=== PATIENT | female | born 1975 | race Caucasian/White ===

== ENCOUNTER 2023-03-09 08:22 | Outpatient (OUT) | payer OTHER, SELFPAY ==
--- NOTE | 2023-03-09 08:33 | P.CN_ITS ---
Consult Note: HPI Data of Consult Patient: known to practice within the last 3 years Consult date: 03/09/23 Requesting Physician: DELONTE CLARK NP Primary Care Provider: Kelechi Galvan DO Consult Narrative Narrative: Patient is here for f/u of low back pain. Hx of RFA 11/30 with significant relief continued through today. She states low back pain is starting to come back, but not too bad at this point. No radicular sx. No new sensorimotor sx or bowel or bladder issues. Medication regimen is controlling pain and assisting patient wi th ability to perform ADLs. She has been able to decrease her tizanidine dosage. cc:: CC: DELONTE CLARK NP Review of Systems ROS Status of ROS 10 or more systems reviewed and unremarkable except as noted in history and below Musculoskeletal Reports: back pain Exam Constitutional Common normals: no apparent distress, oriented x3, healthy appearing and alert General appearance: cooperative, comfortable and well developed Nutritional appearance: obese Orientation/consciousness: Yes awake, Yes oriented to person, Yes oriented to place and Yes oriented to time HENMT Common normals: normocephalic and external ears normal Respiratory Common normals: normal respiratory effort, no retractions and no use of accessory muscles Effort & inspection: able to speak in complete sentences and symmetric chest movement Back & Pelvis Thoracic spine/upper back: normal to inspection and thoracic ROM normal Lumbar spine/lower back: normal to inspection, lumbar ROM normal, pain with ROM, paraspinal muscle spasm and straight leg raise negative bilaterally Other: muscle strength 5/5 bilat LE with intact sensation. positive facet loading bilat lumbar Extremity Common normals: normal to inspection, full ROM and normal capillary refill Assessment and Plan Assessment and Plan (1) Lumbar spondylosis: (2) Muscle spasm: Plan f/u in 6 months or sooner if needed
== END 2023-03-09 08:23 | disposition home or self-care (01) ==
PROVIDERS: PCP Internal Medicine; Visit Provider Nurse Practitioner
DX: M47.816 Spondylosis without myelopathy or radiculopathy, lumbar region (principal); M62.838 Other muscle spasm; M54.50 Low back pain, unspecified
CPT/HCPCS: G0463

== ENCOUNTER 2023-05-31 07:40 | Outpatient (OUT) | payer OTHER, SELFPAY ==
--- NOTE | 2023-05-31 08:14 | P.CN_ITS ---
Consult Note: HPI Data of Consult Patient: known to practice within the last 3 years Requesting Physician: Jeny Manley NP Primary Care Provider: Kelechi Galvan DO Consult Narrative Reason for consult: neck pain and back pain Narrative: Jing Gray a pleasant 47 year old female presents with chronic neck and back pain. Patient has felt her neck pain worsening over time, especially in the last week. She went to urgent care and was given a toradol shot and steroid taper without relief. Reviewed imaging from 11/03 of cervical spine which revealed degenerative changes. Patient denies numbness/tingling weakness. cc:: CC: Jeny Manley NP Review of Systems ROS Status of ROS 10 or more systems reviewed and unremarkable except as noted in history and below Musculoskeletal Reports: back pain and neck pain Meds Home Medications and Allergies Home Medications Medication Instructions Recorded Confirmed Type atenolol 50 mg tablet 50 mg PO DAILY 03/09/23 03/09/23 History dapagliflozin propanediol 5 mg 5 mg PO DAILY 03/09/23 03/09/23 History tablet (Farxiga) dulaglutide 4.5 mg/0.5 mL 4.5 mg subcut QWEEK 03/09/23 03/09/23 History subcutaneous pen injector (Trulicity) furosemide 20 mg tablet 20 mg PO DAILY 03/09/23 03/09/23 History lisinopril 5 mg tablet 5 mg PO DAILY 03/09/23 03/09/23 History melatonin 5 mg tablet 5 mg PO DAILY 03/09/23 03/09/23 History metformin 1,000 mg tablet 1,000 mg PO BID 03/09/23 03/09/23 History naproxen 500 mg tablet 500 mg PO BID 03/09/23 03/09/23 History potassium chloride 10 mEq 10 meq PO DAILY 03/09/23 03/09/23 History tablet,extended release (Klor-Con) tizanidine 4 mg tablet (Zanaflex) 4 mg PO DAILY PRN spasm 03/09/23 03/09/23 History baclofen 10 mg tablet 10 mg PO BID #60 tabs 05/31/23 Rx naproxen 500 mg tablet 500 mg PO BID PRN pain #60 tabs 05/31/23 Rx Allergies Allergy/AdvReac Type Severity Reaction Status Date / Time Penicillins Allergy Rash Verified 03/09/23 08:50 Exam Constitutional Documenting provider has reviewed patient's vital signs: yes Common normals: no apparent distress, oriented x3, healthy appearing, alert and well nourished General appearance: cooperative Nutritional appearance: obese HENMT Common normals: normocephalic, hearing grossly normal bilaterally and moist oral mucous membranes Head and scalp: normocephalic Eye Common normals: PERRL Pupil: PERRL Neck & C-Spine General: normal visual inspection Cervical spine: cervical ROM abnormal, pain with cervical ROM, cervical spine tenderness and paracervical muscle tenderness Chest Common normals: inspection of chest normal Respiratory Common normals: normal respiratory effort, no retractions and no use of accessory muscles Back & Pelvis Lumbar spine/lower back: ROM limited and pain with ROM Other: positive facet loading, predominately axial back pain Extremity Common normals: normal to inspection and full ROM Neuro Common normals: oriented x3, CN's II-XII intact bilaterally, moves all ex tremities, no focal motor deficits, no sensory deficits noted, deep tendon reflexes 2+ bilaterally and gait normal Sensorium/orientation: alert Motor exam: strength 5/5 throughout and no movement abnormalities noted Psych Common normals: mental status grossly normal, thought process normal, cooperative, affect normal, speech normal and activity/motor behavior normal Speech: normal speech Thought process: normal thought process Results Additional Findings Additional findings: The patient has had over 3 months of moderate to severe neck pain with functional impairment and inadequate response to conservative care including NSAIDS (unless there are contraindication such as concurrent blood thinners), multiple oral or topical pain medications, and home exercise program/physical therapy.? The Oswestry Disability Index was completed, and the patient scored a 40%.? The patient noted the following:?? severe pain, pain prevents her from lifting heavy weights, pain prevents her from walking more than 0.5 miles, pain prevents her from standing more than 30 minutes, pain interferes with sleep and social life. We discussed the risks and benefits of the procedure with the patient, and we are NOT planning on using sedation as outlined in the guidelines from Medicare unless there is a documented reason that sedation would be strongly recommended.?? ?The procedure will be completed with fluoroscopic guidance.? Assessment and Plan Assessment and Plan (1) Lumbar spondylosis: (2) Muscle spasm: (3) Cervical spondylosis: (4) Obesity: Assessment and Plan: The patient was counseled that proper dietary changes and consistent participation in a home exercise plan can lead to weight loss. Weight loss can help to improve functionality in patients with chronic pain.? Plan start meloxicam 500mg BID for one week, then BID PRN stop tizanidine, start baclofen 5-10mg PO BID PRN muscle spasms bialteral C6-7 C7-8 MBB x2 under fluoroscopy working towards a thermal RFA repeat bilateral T12-L1 L2-3 RFA in the future, last had 11/2021 and feels it is wearing off f/u 1 week after MBB at bilateral c6-7 c7-8
== END 2023-05-31 07:41 | disposition home or self-care (01) ==
PROVIDERS: PCP Internal Medicine; Visit Provider Nurse Practitioner
DX: M47.816 Spondylosis without myelopathy or radiculopathy, lumbar region (principal); M62.838 Other muscle spasm; M47.812 Spondylosis without myelopathy or radiculopathy, cervical region; E66.9 Obesity, unspecified
CPT/HCPCS: G0463

== ENCOUNTER 2023-06-27 06:38 | Day surgery (SDC) | payer OTHER, SELFPAY ==
[2023-06-27 07:08] VITALS: BP 104/64; PULSE 76; RESP 14; TEMP 36.3; O2SAT 97
[2023-06-27 07:36] LABS: Glucometer 127 mg/dL (74-106)
[2023-06-27 07:47] LABS: HCG Qualitative NEGATIVE (NEGATIVE)
[2023-06-27 08:26] VITALS: BP 131/91; PULSE 72; RESP 18; O2SAT 95
[2023-06-27] MEDS: BUPIVACAINE HCL 0.25% PF 25 MG/10 ML VIAL 8 ML INJ (08:27)
[2023-06-27 08:31] VITALS: BP 133/87; PULSE 66; RESP 18; O2SAT 95
--- NOTE | 2023-06-27 09:17 | W.PM.PROCNOT ---
Date of procedure: 06/27/23 Pre-op diagnosis: cervical spondylosis Post-op diagnosis: same as pre-op Procedure: Bilateral Cervical 5/6, 6/7 medial branch block Under fluoroscopic guidance Solution injected: 2millilitersMarcaine 0.25% Anesthesia :none Immediate complications none Time out process compliant After informed consent obtained from the patient placed in the Prone proposition . area was prepped and draped in a sterile fashion using Cloraprep .25 gauge spinal needle inserted over each of the above mentioned target areas . [place] were directed towards the target under fluoroscopic guidance . after encountering each of the targets , no indication of intravascular intraneuronal or intrathecal needle tip placement. Then 0 .5 to 1 Milliliter was injected at each level. [place] removed postoperatively. patient transferred to recovery in stable condition to be discharged home after meeting criteria Anesthesia: Local Surgeon: Julianna Black Condition: stable
== END 2023-06-27 08:40 | disposition home or self-care (01) ==
PROVIDERS: Anesthesiology; PCP Internal Medicine; Visit Provider Anesthesiology Pain Medicine
DX: M47.812 Spondylosis without myelopathy or radiculopathy, cervical region (principal)
CPT/HCPCS: 36415; 64490; 64491; 82948; 84703

== ENCOUNTER 2023-07-06 08:04 | Outpatient (OUT) | payer OTHER, SELFPAY ==
--- NOTE | 2023-07-06 08:36 | P.CN_ITS ---
Consult Note: HPI Data of Consult Patient: known to practice within the last 3 years Requesting Physician: Jeny Manley NP Primary Care Provider: Kelechi Galvan, DO Consult Narrative Reason for consult: f/u Narrative: Jing Gray a pleasant 47 year old female presents for evaluation and management of chronic neck pain today rating pain 4/10 ache without radiculopathy. Patient recently underwent bilateral cervical 5/6 6/7 MBB#1 with 80% pain relief and functional improvement immediately after and hours following. Patient is tolerating current medication well with mild pain relief and without side effects. Would like to discuss proceeding with bilateral C5/6 6/7 MBB#2 working towards thermal RFA cc:: CC: Jeny Manley NP Review of Systems ROS Status of ROS 10 or more systems reviewed and unremarkable except as noted in history and below Musculoskeletal Reports: neck pain PFSH PFSH Medical History (Updated 06/16/23 @ 09:33 by Veronica Mack RN) Diabetes ?E11.9 - Type 2 diabetes mellitus without complications (ICD-10) HTN (hypertension) ?I10 - Essential (primary) hypertension (ICD-10) In vitro fertilization ?Z31.83 - Encounter for assisted reproductive fertility procedure cycle (ICD- 10) Surgical History History of dilation and curettage ?Z98.890 - Other specified postprocedural states (ICD-10) History of fasciotomy ?Z98.890 - Other specified postprocedural states (ICD-10) History of hysteroscopy ?Z98.890 - Other specified postprocedural states (ICD-10) History of laparoscopy ?Z98.890 - Other specified postprocedural states (ICD-10) History of tubal ligation ?Z98.51 - Tubal ligation status (ICD-10) Previous section ?Z98.891 - History of uterine scar from previous surgery (ICD-10) Meds Home Medications and Allergies Home Medications Medication Instructions Recorded Confirmed Type atenolol 50 mg tablet 50 mg PO DAILY 03/09/23 06/27/23 History dapagliflozin propanediol 5 mg 5 mg PO DAILY 03/09/23 06/27/23 History tablet (Farxiga) dulaglutide 4.5 mg/0.5 mL 4.5 mg subcut QWEEK 03/09/23 06/27/23 History subcutaneous pen injector (Trulicity) furosemide 20 mg tablet 20 mg PO DAILY 03/09/23 06/27/23 History lisinopril 5 mg tablet 5 mg PO DAILY 03/09/23 06/27/23 History metformin 1,000 mg tablet 1,000 mg PO BID 03/09/23 06/27/23 History naproxen 500 mg tablet 500 mg PO BID 03/09/23 06/27/23 History potassium chloride 10 mEq 10 meq PO DAILY 03/09/23 06/27/23 History tablet,extended release (Klor-Con) tizanidine 4 mg tablet (Zanaflex) 4 mg PO DAILY PRN spasm 03/09/23 06/27/23 History baclofen 10 mg tablet 10 mg PO BID #60 tabs 05/31/23 06/27/23 Rx naproxen 500 mg tablet 500 mg PO BID PRN pain #60 tabs 05/31/23 06/27/23 Rx Allergies Allergy/AdvReac Type Severity Reaction Status Date / Time Penicillins Allergy Rash Verified 06/27/23 07:02 Exam Constitutional Documenting provider has reviewed patient's vital signs: yes Common normals: no apparent distress, oriented x3, healthy appearing, alert and well nourished General appearance: cooperative Nutritional appearance: obese HENMT Common normals: normocephalic, hearing grossly normal bilaterally and moist oral mucous membranes Head and scalp: normocephalic Eye Common normals: PERRL Pupil: PERRL Neck & C-Spine Common normals: full ROM General: normal visual inspection Cervical spine: cervical ROM abnormal, pain with cervical ROM, cervical spine tenderness and paracervical muscle tenderness Chest Common normals: inspection of chest normal Respiratory Common normals: normal respiratory effort, no retractions and no use of accessory muscles Back & Pelvis Lumbar spine/lower back: ROM limited and pain with ROM Other: positive facet loading, predominately axial back pain Extremity Common normals: normal to inspection and full ROM Neuro Common normals: oriented x3, CN's II-XII intact bilaterally, moves all extremities, no focal motor deficits, no sensory deficits noted and deep tendon reflexes 2+ bilaterally Sensorium/orientation: alert Motor exam: strength 5/5 throughout and no movement abnormalities noted Psych Common normals: mental status grossly normal, thought process normal, cooperative, affect normal, speech normal and activity/motor behavior normal Speech: normal speech Thought process: normal thought process Results Additional Findings Additional findings: I have checked an OARRS report on this patient today and there are no aberrancies noted in the prescribing history.?? A drug screen was completed and reviewed within the last year, and if there has not been a drug screen completed we ordered one today to monitor higher risk, state monitored pain medication use. As part of providing excellent, safe, comprehensive care, the following was completed at our patient's visit: 1. A medication reconciliation and review to ensure accurate knowledge of current/active medications, including asking our patients to inform us about any [id number] medications or herbal remedies/nutritional supplements/alternative remedies. 2. A review to specifically ensure our patients have had annual screening for: elevated body mass index (BMI), tobacco use, screening for depression, and screening for unhealthy alcohol use. When screening is concerning, patients are provided with education and the specific recommendation to discuss the concerning health issue and treatment options with their primary care provider. Assessment and Plan Assessment and Plan (1) Cervical spondylosis: (2) Muscle spasm: (3) Lumbar spondylosis: Plan continue current medications bilateral C5/6 6/7 MBB x2 under fluoroscopy with 10mg PO valium working towards a thermal RFA repeat bilateral T12-L1 L2-3 RFA in the future, last had 11/2021 and feels it is wearing off f/u 1 week after MBB #2
== END 2023-07-06 08:05 | disposition home or self-care (01) ==
LOC: PM 08:05
PROVIDERS: PCP Internal Medicine; Visit Provider Nurse Practitioner
DX: M47.812 Spondylosis without myelopathy or radiculopathy, cervical region (principal); M47.816 Spondylosis without myelopathy or radiculopathy, lumbar region; M62.838 Other muscle spasm
CPT/HCPCS: G0463

== ENCOUNTER 2023-08-01 06:51 | Day surgery (SDC) | payer OTHER, SELFPAY ==
[2023-08-01 07:24] VITALS: BP 137/92; PULSE 82; RESP 16; TEMP 35.7; O2SAT 96
[2023-08-01 07:28] LABS: Glucometer 115 mg/dL (74-106)
[2023-08-01 08:11] VITALS: BP 155/100; PULSE 88; RESP 18; O2SAT 91
[2023-08-01] MEDS: BUPIVACAINE HCL 0.25% PF 25 MG/10 ML VIAL INJ (08:12)
[2023-08-01 08:18] VITALS: BP 158/97; PULSE 76; RESP 18; O2SAT 98
--- NOTE | 2023-08-01 09:07 | W.PM.PROCNOT ---
Date of procedure: 08/01/23 Pre-op diagnosis: Cervical Spondylosis Post-op diagnosis: same as pre-op Procedure: Bilateral Cervical 5/6, 6/7 medial branch block Under fluoroscopic guidance Solution injected: 2millilitersMarcaine 0.25% Anesthesia :none Immediate complications none Time out process compliant After informed consent obtained from the patient placed in the Prone proposition . area was prepped and draped in a sterile fashion using Cloraprep .25 gauge spinal needle inserted over each of the above mentioned target areas . [place] were directed towards the target under fluoroscopic guidance . after encountering each of the targets , no indication of intravascular intraneuronal or intrathecal needle tip placement. Then 0 .5 to 1 Milliliter was injected at each level. [place] removed postoperatively. patient transferred to recovery in stable condition to be discharged home after meeting criteria Anesthesia: Local Surgeon: Julianna Black Condition: stable
== END 2023-08-01 08:21 | disposition home or self-care (01) ==
PROVIDERS: PCP Internal Medicine; Visit Provider Anesthesiology Pain Medicine
DX: M47.812 Spondylosis without myelopathy or radiculopathy, cervical region (principal)
CPT/HCPCS: 36415; 36416; 64490; 64491; 82948

== ENCOUNTER 2023-08-10 14:52 | Outpatient (OUT) | payer OTHER, SELFPAY ==
--- NOTE | 2023-08-10 15:17 | P.CN_ITS ---
Consult Note: HPI Data of Consult Patient: known to practice within the last 3 years Requesting Physician: Jeny Manley NP Primary Care Provider: Kelechi Galvan, DO Consult Narrative Reason for consult: f/u Narrative: Marie Gray a pleasant 47 year old female presents for evaluation and management of chronic neck pain. Today pain 3/10 without radiculopathy. Patient underwent bilateral C5/6 6/7 MBB #2 with 90% pain relief and functional improvement immediately after and hours following the procedure. Patient would like to proceed with thermal RFA at right then left C5/6 6/7. She would also like to discuss repeating bilateral T12/L1 L2/3 thermal RFA. cc:: CC: Jeny Manley NP Review of Systems ROS Status of ROS 10 or more systems reviewed and unremarkable except as noted in history and below Musculoskeletal Reports: neck pain PFSH PFSH Medical History Diabetes ?E11.9 - Type 2 diabetes mellitus without complications (ICD-10) HTN (hypertension) ?I10 - Essential (primary) hypertension (ICD-10) In vitro fertilization ?Z31.83 - Encounter for assisted reproductive fertility procedure cycle (ICD- 10) Surgical History History of dilation and curettage ?Z98.890 - Other specified postprocedural states (ICD-10) History of fasciotomy ?Z98.890 - Other specified postprocedural states (ICD-10) History of hysteroscopy ?Z98.890 - Other specified postprocedural states (ICD-10) History of laparoscopy ?Z98.890 - Other specified postprocedural states (ICD-10) History of tubal ligation ?Z98.51 - Tubal ligation status (ICD-10) Previous section ?Z98.891 - History of uterine scar from previous surgery (ICD-10) Meds Home Medications and Allergies Home Medications Medication Instructions Recorded Confirmed Type atenolol 50 mg tablet 50 mg PO DAILY 03/09/23 08/01/23 History dapagliflozin propanediol 5 mg 5 mg PO DAILY 03/09/23 08/01/23 History tablet (Farxiga) dulaglutide 4.5 mg/0.5 mL 4.5 mg subcut QWEEK 03/09/23 08/01/23 History subcutaneous pen injector (Trulicity) furosemide 20 mg tablet 20 mg PO DAILY 03/09/23 08/01/23 History lisinopril 5 mg tablet 5 mg PO DAILY 03/09/23 08/01/23 History metformin 1,000 mg tablet 1,000 mg PO BID 03/09/23 08/01/23 History naproxen 500 mg tablet 500 mg PO BID 03/09/23 08/01/23 History potassium chloride 10 mEq 10 meq PO DAILY 03/09/23 08/01/23 History tablet,extended release (Klor-Con) tizanidine 4 mg tablet (Zanaflex) 4 mg PO DAILY PRN spasm 03/09/23 08/01/23 History naproxen 500 mg tablet 500 mg PO BID PRN pain #60 tabs 05/31/23 08/01/23 Rx diazepam 10 mg tablet mg 08/01/23 History Allergies Allergy/AdvReac Type Severity Reaction Status Date / Time Penicillins Allergy Rash Verified 08/01/23 07:20 Exam Constitutional Documenting provider has reviewed patient's vital signs: yes Common normals: no apparent distress, oriented x3, healthy appearing, alert and well nourished General appearance: cooperative Nutritional appearance: obese HENMT Common normals: normocephalic, hearing grossly normal bilaterally and moist oral mucous membranes Head and scalp: normocephalic Eye Common normals: PERRL Pupil: PERRL Neck & C-Spine Common normals: full ROM General: normal visual inspection Cervical spine: cervical ROM abnormal, pain with cervical ROM, cervical spine tenderness and paracervical muscle tenderness Chest Common normals: inspection of chest normal Respiratory Common normals: normal respiratory effort, no retractions and no use of accessory muscles Back & Pelvis Lumbar spine/lower back: ROM limited and pain with ROM Other: positive facet loading, predominately axial back pain Extremity Common normals: normal to inspection and full ROM Neuro Common normals: oriented x3, CN's II-XII intact bilaterally, moves all extremities, no focal motor deficits, no sensory deficits noted and deep tendon reflexes 2+ bilaterally Sensorium/orientation: alert Motor exam: strength 5/5 throughout and no movement abnormalities noted Psych Common normals: mental status grossly normal, thought process normal, cooperative, affect normal, speech normal and activity/motor behavior normal Speech: normal speech Thought process: normal thought process Results Additional Findings Additional findings: I have checked an OARRS report on this patient today and there are no aberr ancies noted in the prescribing history.?? A drug screen was completed and reviewed within the last year, and if there has not been a drug screen completed we ordered one today to monitor higher risk, state monitored pain medication use. As part of providing excellent, safe, comprehensive care, the following was completed at our patient's visit: 1. A medication reconciliation and review to ensure accurate knowledge of current/active medications, including asking our patients to inform us about any [id number] medications or herbal remedies/nutritional supplements/alternative remedies. 2. A review to specifically ensure our patients have had annual screening for: elevated body mass index (BMI), tobacco use, screening for depression, and screening for unhealthy alcohol use. When screening is concerning, patients are provided with education and the specific recommendation to discuss the concerning health issue and treatment options with their primary care provider. Assessment and Plan Assessment and Plan (1) Cervical spondylosis: Assessment and Plan: The patient has had over 3 months of moderate to severe neck pain with functional impairment and inadequate response to conservative care including NSAIDS (unless there are contraindication such as concurrent blood thinners), multiple oral or topical pain medications, and home exercise program/physical therapy.? Patient has completed >6 weeks of guided home exercise program and/or formal physical therapy program without relief of their symptoms.? I have reviewed the imaging of the cervical spine and no red flags were identified.? The imaging reveals radiographic findings consistent with cervical spondylosis We discussed the risks and benefits of the procedure with the patient, and we are NOT planning on using sedation as outlined in the guidelines from Medicare unless there is a documented reason that sedation would be strongly recommended.?? The procedure will be completed with fluoroscopic guidance.? (2) Muscle spasm: (3) Lumbar spondylosis: (4) Thoracic spondylosis: Plan continue current medications right then left C5/6 6/7 thermal RFA under fluoroscopy with IV sedation repeat bilateral T12-L1 L2-3 RFA in the future, last had 11/2021 and feels it is wearing off f/u 1 month after RFA
== END 2023-08-10 14:53 | disposition home or self-care (01) ==
LOC: PM 14:53
PROVIDERS: PCP Internal Medicine; Visit Provider Nurse Practitioner
DX: M47.812 Spondylosis without myelopathy or radiculopathy, cervical region (principal); M62.838 Other muscle spasm; M47.816 Spondylosis without myelopathy or radiculopathy, lumbar region; M47.814 Spondylosis without myelopathy or radiculopathy, thoracic region
CPT/HCPCS: G0463

== ENCOUNTER 2023-08-24 15:55 | Outpatient (OUT) | payer OTHER, SELFPAY ==
--- NOTE | 2023-08-24 16:00 | MM_ITS ---
Patient Name: ELISA SANTOS MR#: [id number] : 1975 Exam Date: 08/24/2023 Ordering Doctor: DR Kelechi Galvan D.O. RADIOLOGY REPORT PROCEDURE: MM TOMOSYNTHESIS SCREENING BI COMPARISON: MG MAMM JANE SCRN W CAD DIG, 01/02/2015. MG MAMM SCREEN 3D JANE CAD, 07/11/2022. INDICATIONS: Screening Calculator Name NCI Breast Cancer Risk Assessment Tool 5 Year Breast Cancer Risk 1.10% Lifetime Breast Cancer Risk 11.10% Personal Breast Cancer No Personal Ovarian Cancer No Treatments None Family Cancers Grandmother-maternal with breast cancer at age ~53; Aunt-maternal with breast cancer at age ~38; Aunt-maternal with breast cancer at age ~45; Aunt-maternal with ovarian cancer at age ~40; Aunt-maternal with bladder cancer at age ~45; Father with bladder cancer at age ~52. LOCATION: [facility] BREAST COMPOSITION: Scattered areas fibroglandular density. FINDINGS: DIAGNOSTIC CATEGORY 2--BENIGN FINDING. NO CHANGE FROM COMPARISON. Scattered benign-appearing nodules are present. Scattered benign-appearing calcifications are present. Scattered benign-appearing lymph nodes are present. RIGHT BREAST: No significant suspicious finding. LEFT BREAST: No significant suspicious finding. RECOMMENDATIONS: ROUTINE MAMMOGRAM AND CLINICAL EVALUATION IN 12 MONTHS. PLEASE NOTE: A NORMAL MAMMOGRAM DOES NOT EXCLUDE THE POSSIBILITY OF BREAST CANCER. A CLINICALLY SUSPICIOUS PALPABLE LUMP SHOULD BE BIOPSIED. Dictated by: Kevin Cagle MD on 08/25/2023 at 08:34 Approved by: Kevin Cagle MD on 08/25/2023 at 08:38
== END 2023-08-24 15:56 | disposition home or self-care (01) ==
LOC: MAMMO 15:55
PROVIDERS: PCP Internal Medicine; Visit Provider Internal Medicine
DX: Z00.00 Encounter for general adult medical examination without abnormal findings (principal); Z80.3 Family history of malignant neoplasm of breast; Z80.41 Family history of malignant neoplasm of ovary; Z80.52 Family history of malignant neoplasm of bladder
CPT/HCPCS: 77063; 77067

== ENCOUNTER 2023-08-25 08:20 | Outpatient (OUT) | payer OTHER, SELFPAY ==
[2023-08-25 08:44] LABS: Basophils Absolute Auto 0.1 10^3/uL (0.0-0.1); Basophils Percent Auto 0.5 % (0.2-2.0); Eosinophils Absolute Auto 0.4 10^3/uL (0.0-0.7); Eosinophils Percent Auto 2.7 % (0.9-7.0); Hematocrit 45.6 % (36.0-48.0); Hemoglobin 14.3 g/dL (12.0-16.0); Immature Granulocytes Abs Auto 0.08 10^3/uL (0.00-0.03); Immature Granulocytes Pct Auto 0.6 % (0.0-0.5); Lymphocytes Absolute Auto 2.6 10^3/uL (1.2-3.8); Lymphocytes Percent Auto 19.9 % (20.5-60.0); Mean Corpuscular HGB Conc 31.4 g/dL (29.9-35.2); Mean Corpuscular Hemoglobin 27.7 pg (26.7-34.0); Mean Corpuscular Volume 88.4 fL (81.0-99.0); Mean Platelet Volume 9.4 fL (9.5-13.5); Monocytes Percent Auto 7.9 % (1.7-12.0); Neutrophils Percent Auto 68.4 % (43.0-75.0); Platelet Count 237 10^3/uL (150-450); Red Blood Count 5.16 10^6/uL (4.20-5.40); White Blood Count 13.1 10^3/uL (4.0-11.0)
[2023-08-25 09:14] LABS: Estimated Average Glucose 128 mg/dL; Glycohemoglobin A1C 6.1 % (4.5-6.2)
[2023-08-25 09:17] LABS: Alanine Aminotransferase 57 U/L (14-59); Albumin Globulin Ratio 1.2; Albumin Level 4.2 g/dL (3.4-5.0); Alkaline Phosphatase 78 U/L (46-116); Anion Gap 9.4; Aspartate Amino Transferase 36 U/L (15-37); BUN Creatinine Ratio 21.5; Bilirubin Total 0.9 mg/dL (0.2-1.0); Calcium 9.5 mg/dL (8.5-10.1); Carbon Dioxide 32.4 mmol/L (21.0-32.0); Chloride 98 mmol/L (98-107); Cholesterol 204 mg/dL (<=200); Estimated GFR (African America >60 (>=60); Estimated GFR (Non-African Ame >60 (>=60); Globulin 3.6 g/dL; Glucose 112 mg/dL (74-106); HDL Cholesterol 68 mg/dL (40-60); Potassium 3.8 mmol/L (3.5-5.1); Sodium 136 mmol/L (136-145); Total Protein 7.8 g/dL (6.4-8.2); Triglycerides 97 mg/dL (<=150); VLDL CHOLESTEROL 19.4 mg/dL
[2023-08-25 09:18] LABS: Microalbumin Urine Random 2.3 mg/dL (<=30.0)
== END 2023-08-25 08:21 | disposition home or self-care (01) ==
LOC: LAB 08:20
PROVIDERS: PCP Internal Medicine; Visit Provider Internal Medicine
DX: Z00.00 Encounter for general adult medical examination without abnormal findings (principal)
CPT/HCPCS: 36415; 80053; 80061; 82043; 83036; 84146; 85025

== ENCOUNTER 2023-09-07 14:33 | Outpatient (OUT) | payer OTHER, SELFPAY ==
--- OUTSIDE RECORDS SUMMARY | 2023-09-07 14:37 | XMS_ITS | CCD ---
Author Name Unknown Address [id number] [place] [address] Organization [facility] Care Team Providers Care Electronic Specialist Name Role Phone Kelechi Galvan Unavailable COLE, DR CULVER Primary Care Unavailable LAKSHMIPATHY ., NARENDRANATH Admitting Bebe vailable LAKSHMIPATHY ., NARENDRANATH Consulting Bebe vailable LAKSHMIPATHY ., NARENDPAULA Attending Bebe vailable ELIAS ., DR DEANN Mcguire Attending Unavailable BALL, DR CULVER Primary Care Unavailable ELIAS ., DR DEANN Mcguire Admitting Unavailable HUNG ., YOGESH Consulting Unavailable COLE, DR CULVER Primary Care Unavailable LAKSHMIPATHY ., NARENDPAULA Consulting Bebe vailable LAKSHMIPATHY ., NARENDRANATH Attending Bebe vailable LAKSHMIPATHY ., NARENDRANATH Admitting Bebe vailable LAKSHMIPATHY ., NARENDRANATH Attending Bebe vailable LAKSHMIPATHY ., NARENDMERIATH Admitting Bebe vailable COLE, DR CULVER Primary Care Unavailable COLE, DR CULVER Primary Care Unavailable COLE, DR CULVER Consulting Unavailable COLE, DR CULVER Attending Unavailable COLE, DR CULVER Admitting Unavailable BALL, DR CULVER Primary Care Unavailable BALL, DR CULVER Consulting Unavailable COLE, DR CULVER Attending Unavailable BALL, DR CULVER Admitting Unavailable BALL, DR CULVER Primary Care Unavailable LAKSHMIPATHY ., NARENDRANBRUCE Admitting Bebe vailable LAKSHMIPATHY ., NARENDRANBRUCE Attending Bebe vailable ZIEBER, DR FELIPE Santiago Consulting Unavailable LAKSHMIPATHY ., ERINN Consulting Bebe vailable COLE, DR CULVER Primary Care Unavailable COLE, DR CULVER Consulting Unavailable COLE, DR CULVER Attending Unavailable COLE, DR CULVER Admitting Unavailable BALL, DR CULVER Consulting Unavailable COLE, DR CULVER Attending Unavailable COLE, DR CULVER Primary Care Unavailable COLE, DR CULVER Admitting Unavailable [place], DR ANGELA Orellana Consulting Unavailable COLE, DR CULVER Consulting Unavailable COLE, DR CULVER Attending Unavailable BALL, DR CULVER Admitting Unavailable BALL, DR CULVER Primary Care Unavailable COLE, DR CULVER Primary Care Unavailable LAKSHMIPATHY ., ERINN Admitting Bebe vailable JASONY ., NARMICAHATH Attending Bebe vailable Angélica Swann Unavailable Angélica Swann Attending Unavailable Angélica Swann Admitting Unavailable TRINI Swann Attending Provider Allergies Allergy Classification Reported Allergen(s) Allergy Type Date of Onset Reaction(s) Facility (13 sources) Penicillin G Drug Allergy pt doesn't remember [facility] Other (2 sources) Penicillins Drug allergy (disorder) 3 [facility] Repository (5 sources) Doxycycline Drug Allergy Unknown [facility] Other (2 sources) Penicillin Drug Allergy Unknown [facility] Other (5 sources) Penicillin G Benzathine & Proc Drug allergy 7 Unknown [facility] Other (2 sources) patient allergy list reviewed by nurse or physicia Propensity to adverse reactions 4 Comment:Done [facility] Other (2 sources) Allergies Reconciled Propensity to adverse reactions Unknown [facility] Other Medications Current Medications Medication Drug Class(es) Dates Sig (Normalized) Sig (Original) atenolol 50 mg oral tablet (20 sources) beta-Adrenergic Selin take 1 tablet by mouth once daily Atenolol 50 MG TAKE 1 TABLET BY MOUTH EVERY DAY Active Atenolol Not-Anuj ing/PRN Atenolol Not-Anuj ing Atenolol Active baclofen 10 mg oral tablet (3 sources) gamma-Aminobutyric Acid-ergic Agonist take 1 tablet by mouth every twelve hours Baclofen 10 MG 1 tablet as needed Orally Twice a day Active cetirizine hydrochloride 10 mg oral tablet (3 sources) Histamine-1 Receptor Antagonist take 1 tablet by mouth once daily Cetirizine HCl 10 MG TAKE 1 TABLET BY MOUTH EVERY DAY for 90 Active dapagliflozin 5 mg oral tablet (8 sources) Sodium-Glucose Cotransporter 2 Inhibitor Start: 2022 take 1 tablet by mouth every twenty-four hours Farxiga 5 MG 1 tablet Orally Once a day January, Active 0.5 ML dulaglutide 9 MG/ML Auto-Injector [Trulicity] (16 sources) GLP-1 Receptor Agonist Start: 2022 inject 4.5 mg by subcutaneous injection every week Trulicity 4.5 MG/0.5ML 4.5mg Subcutaneous weekly for 30 days Oct, Active Start: 10-18-2022 inject 4.5 mg by sub cutaneous injection every week Trulicity 4.5 MG/0.5ML 4.5mg Subcutaneous weekly Oct, Active Start: 10-18-2022 inject 4.5 mg by sub cutaneous injection every week Trulicity 4.5 MG/0.5ML 4.5mg Subcutaneous weekly for 28 days Oct, Active inject 4.5 mg by sub cutaneous injection every week Trulicity 4.5 MG/0.5ML INJECT 4.5 MG SUBCUTANEOUSLY WEEKLY Active escitalopram 10 mg oral tablet (5 sources) Serotonin Reuptake Inhibitor Start: 04-18-2023 take 1 tablet by mouth every twenty-four hours Lexapro 10 MG 1 tablet Orally Once a day Apr, Active furosemide 20 mg oral tablet (16 sources) Loop Diuretic take 1 tablet by mouth every twenty-four hours Furosemide 20 MG 1 tablet Orally Once a day Active Furosemide Activ e lisinopril 5 mg oral tablet (20 sources) Angiotensin Converting Enzyme Inhibitor take 1 tablet by mouth once daily Lisinopril 5 MG TAKE 1 TABLET BY MOUTH EVERY DAY Active Lisinopril Not-T aking/PRN Lisinopril Not-T aking Lisinopril Activ e metFORMIN hydrochloride 1000 mg oral tablet (4 sources) Biguanide Start: 04-19-2023 take 1 tablet by mouth every twelve hours metFORMIN HCl 1000 MG 1 tablet Orally twice a day Apr, Active OneTouch Ultra - (4 sources) OneTouch Ultra - USE 1 STRIP TO CHECK HOME BLOOD SUGAR for 25 Active phentermine hydrochloride 37.5 mg oral tablet (3 sources) Sympathomimetic Amine Anorectic Start: 08-22-2023 take 1 tablet by mouth once daily before breakfast Adipex-P 37.5 MG 1 tablet before breakfast Orally Once a day for 30 days Rx #1 Aug, Active potassium 99 mg extended release oral tablet (4 sources) take 1 tablet by mouth once daily Potassium 99 MG 1 tablet Orally Once a day Active Potassium Active tiZANidine 4 mg oral tablet (16 sources) Central alpha-2 Adrenergic Agonist take 1 tablet by mouth once daily at bedtime tiZANidine HCl 4 MG TAKE 1 TABLET BY MOUTH EVERYDAY AT BEDTIME for 30 Active take 1 tablet by mouth every eig ht hours tiZANidine HCl 4 MG 1 tablet as needed Orally every 8 hrs Active Completed/Discontinued Medications Medication Drug Class(es) Dates Sig (Normalized) Sig (Original) cabergoline 0.5 mg oral tablet (16 sources) Ergot Derivative take 1 tablet by mouth two times weekly as needed Cabergoline 0.5 MG 1 tablet Orally 2 times a week Not-Taking/PRN Dexamethasone / Neomycin / Polymyxin B (16 sources) Aminoglycoside Antibacterial, Polymyxin-class Antibacterial, Corticosteroid Start: 09-13-2020 take 2 drop(s) into the eye(s) three times daily as needed Maxitrol 3.5-23512-4.1 2 drops into affected eye Ophthalmic Three times a day for 7 days Sep, Not-Taking/PRN Start: 09-13-2020 take 2 drop(s) into the eye(s) three times daily Maxitrol 3.5-49201-2.1 2 drops into affected eye Ophthalmic Three times a day for 7 days Sep, Not-Taking Start: 09-13-2020 take 2 drop(s) into the eye(s) three times daily Maxitrol 3.5-27527-8.1 2 drops into affected eye Ophthalmic Three times a day for 7 days Sep, Active Ketorolac (16 sources) Nonsteroidal Anti-inflammatory Drug, Cyclooxygenase Inhibitor Start: 06-22-2019 Toradol per 15 mg Jun, 30 mg methylPREDNISolone (16 sources) Corticosteroid Start: 03-09-2015 Depo-Medrol 80 mg Feb, 80 mg predniSONE 20 mg oral tablet (4 sources) Start: 05-26-2023 take 1 tablet by mouth every twelve hours predniSONE 20 MG 1 tablet Orally bid for 5 day(s) May, Not-Taking/PRN Toradol 30 mg/ml (4 sources) Start: 05-26-2023 Toradol 30 mg/ml May, 30 mg triamcinolone acetonide 40 mg/ml injectable suspension (20 sources) Corticosteroid Start: 05-26-2023 Kenalog-40 May, 40 mg Start: 02-28-2023 Triamcinolone Acetonide 0.5 % 1 application Externally Twice a day for 14 days Feb, Not-Taking Start: 06-22-2019 KENALOG - 10 m g Jun, 40 mg Start: 01-10-2016 KENALOG - 10 m g January, 60 mg Triamcinolone Ac etonide 0.5 % APPLY DAILY TO SKIN TO AFFECTED AREA TWICE A DAY FOR 2 WEEKS for 30 Not-Taking/PRN Problems Active Problems Problem Classification Problem Date Documented Date Episodic/Chronic Acute bronchitis (2 sources) Acute bronchitis; 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: [Acute bronchitis due to other specified organisms] Episodic Chronic obstructive pulmonary disease and bronchiectasis (2 sources) Acute exacerbation of chronic obstructive airways disease; 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: [Chronic obstructive pulmonary disease with (acute) exacerbation] Onset: 8 Chronic Complications of surgical procedures or medical care (2 sources) Postoperative hemorrhage; 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: [Postprocedural hemorrhage of a genitourinary system organ or structure following a genitourinary system procedure] Episodic Diabetes mellitus with complications (20 sources) Type 2 diabetes mellitus; 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: [Type 2 diabetes mellitus with hyperglycemia] Onset: 3 Chronic Essential hypertension (20 sources) Essential hypertension; 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: [Essential (primary) hypertension] Onset: 3 Chronic Female infertility (2 sources) Female infertility associated with anovulation; 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: [Female infertility associated with anovulation] Onset: 7 Chronic Fever of unknown origin (2 sources) Fever; 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: [Fever, unspecified] Episodic Headache; including migraine (4 sources) Migraine without aura, not refractory ; 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: [Migraine, unspecified, not intractable, without status migrainosus] Chronic Immunizations and screening for infectious disease (4 sources) Contact with and (suspected) exposure to other viral communicable diseases; 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: [Exposure to viral disease (event)] Episodic Inflammation; infection of eye (except that caused by tuberculosis or sexually transmitteddisease) (2 sources) Chronic allergic conjunctivitis; 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: [Other chronic allergic conjunctivitis] Onset: 5 Chronic Inflammation; infection of eye (except that caused by tuberculosis or sexually transmitteddisease) (2 sources) Conjunctivitis; 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: [Unspecified conjunctivitis] Episodic Joint disorders and dislocations; trauma-related (2 sources) Chondromalacia of patella; 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: [Chondromalacia patellae, left knee] Onset: 5 Chronic Menopausal disorders (6 sources) Perimenopausal state; 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: [Menopausal and female climacteric states] Chronic Menstrual disorders (8 sources) Irregular periods; 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: [Irregular menstrual cycle] Onset: 7 Chronic Mood disorders (9 sources) Moderate major depression, single episode; 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: [Major depressive disorder, single episode, moderate] Chronic Mycoses (2 sources) Candidiasis; 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: [Candidiasis, unspecified] Episodic Nonmalignant breast conditions (17 sources) Large breast; 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: [Macromastia] Onset: 6 Episodic Other aftercare (2 sources) High risk drug monitoring status; 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: [correction (current) use of opiate analgesic] Episodic Other aftercare (2 sources) History and physical examination, follow-up; 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: [Encounter for follow-up examination after completed treatment for conditions other than malignant neoplasm] Episodic Other and unspecified benign neoplasm (16 sources) Prolactinoma; 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] Episodic Other and unspecified benign neoplasm (1 source) Benign neoplasm of pituitary gland Episodic Other and unspecified benign neoplasm (2 sources) Benign neoplasm of pituitary gland; 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] Episodic Other complications of ; puerperium affecting management of mother (13 sources) 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 associated with childbirth; 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: [Galactorrhea] Episodic Other congenital anomalies (2 sources) Congenital spondylolysis of lumbosacral region; 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: [Congenital spondylolysis, lumbosacral region] Onset: 9 Chronic Other connective tissue disease (13 sources) Plantar fasciitis of right foot; 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: [Plantar fasciitis of right foot] Episodic Other connective tissue disease (8 sources) Disease suspected; 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: [Other symptoms and signs involving the nervous system] Episodic Other connective tissue disease (13 sources) Calcaneal spur; 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: [Heel spur] Episodic Other connective tissue disease (1 source) Other symptoms and signs involving the nervous system Episodic Other connective tissue disease (1 source) Pain in right hand Episodic Other connective tissue disease (2 sources) Plantar fascial fibromatosis; 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: [Plantar fascial fibromatosis] Episodic Other diseases of kidney and ureters (4 sources) Acquired renal cystic disease; 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: [Acquired cyst of kidney] Onset: 8 Episodic Other diseases of veins and lymphatics (4 sources) Peripheral venous insufficiency; 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: [Venous insufficiency (chronic) (peripheral)] Onset: 7 Episodic Other endocrine disorders (16 sources) Hyperprolactinemia; 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: [Hyperprolactinemia] Chronic Other endocrine disorders (3 sources) Hyperprolactinemia Chronic Other endocrine disorders (2 sources) Polycystic ovaries; 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: [Polycystic ovarian syndrome] Chronic Other female genital disorders (2 sources) Abnormal vaginal bleeding; 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: [Other specified abnormal uterine and vaginal bleeding] Chronic Other fractures (1 source) Collapsed vertebra, not elsewhere classified, thoracic region, initial encounter for fracture; 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: [COLLAPSED VERT NEC THOR INIT ENC] Onset: 3 Episodic Other inflammatory condition of skin (6 sources) Seborrheic dermatitis of scalp; 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: [Seborrheic dermatitis, unspecified] Episodic Other inflammatory condition of skin (1 source) Seborrheic dermatitis, unspecified Episodic Other lower respiratory disease (8 sources) Cough; 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: [Cough] Episodic Other nervous system disorders (1 source) Other chronic pain; 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: [OTHER CHRONIC PAIN] Onset: 3 Chronic Other nervous system disorders (1 source) Other specified mononeuropathies; 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: [OTHER SPECIFIED MONONEUROPATHIES] Onset: 2 Chronic Other nutritional; endocrine; and metabolic disorders (20 sources) Morbid obesity; 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: [Morbid (severe) obesity due to excess calories] Onset: 7 Chronic Other nutritional; endocrine; and metabolic disorders (20 sources) Body mass index 40+ - severely obese; 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: [Body mass index (BMI) 45.0-49.9, adult] Onset: 6 Chronic Other nutritional; endocrine; and metabolic disorders (3 sources) Morbid (severe) obesity due to excess calories Chronic Other nutritional; endocrine; and metabolic disorders (2 sources) Obesity; 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: [Obesity, unspecified] Chronic Other nutritional; endocrine; and metabolic disorders (2 sources) Hypercalcemia; 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: [Hypercalcemia] Onset: 8 Chronic Other nutritional; endocrine; and metabolic disorders (3 sources) Severe obesity; 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: [Morbid (severe) obesity due to excess calories] Chronic Other nutritional; endocrine; and metabolic disorders (1 source) Body mass index (BMI) 50.0-59.9, adult Chronic Other screening for suspected conditions (not mental disorders or infectious disease) (2 sources) Imaging result abnormal; 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: [Abnormal findings on diagnostic imaging of other specified body structures] Chronic Other screening for suspected conditions (not mental disorders or infectious disease) (4 sources) Encounter for screening mammogram for malignant neoplasm of breast; 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: [Urine test negative] Onset: 2 Resolved: 9 Episodic Other upper respiratory disease (2 sources) Allergic rhinitis; 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: [Allergic rhinitis, unspecified] Chronic Other upper respiratory infections (14 sources) Acute maxillary sinusitis; 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: [Acute maxillary sinusitis] Onset: 5 Episodic Phlebitis; thrombophlebitis and thromboembolism (2 sources) Phlebitis and thrombophlebitis; 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: [Phlebitis and thrombophlebitis of unspecified site] Episodic Residual codes; unclassified (15 sources) Obstructive sleep apnea syndrome; 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: [Obstructive sleep apnea (adult) (pediatric)] Chronic Residual codes; unclassified (10 sources) Obstructive sleep apnea (adult) (pediatric); 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: [OBSTRUCTIVE SLEEP APNEA] Onset: 3 Chronic Residual codes; unclassified (2 sources) Postprocedural state finding; 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: [Other specified postprocedural states] Episodic Residual codes; unclassified (2 sources) Immunization refused ; 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: [Immunization not carried out because of patient refusal] Episodic Residual codes; unclassified (2 sources) Pain; 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: [Pain, unspecified] Episodic Skin and subcutaneous tissue infections (2 sources) Carbuncle of left lower limb; 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: [Carbuncle of left lower limb] Episodic Spondylosis; intervertebral disc disorders; other back problems (20 sources) Degeneration of cervical intervertebral disc; 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: [Other cervical disc degeneration, unspecified cervical region] Onset: 7 Chronic Spondylosis; intervertebral disc disorders; other back problems (5 sources) Pain in thoracic spine; 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: [Low back pain] Onset: 5 Episodic Sprains and strains (18 sources) Sprain of ankle; 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: [Ankle sprain] Onset: 9 Episodic Viral infection (4 sources) Herpesviral vesicular dermatitis; 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: [Herpesviral vesicular dermatitis] Onset: 8 Episodic Viral infection (2 sources) Disease caused by 2019-nCoV; 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: [COVID-19] Past or Other Problems Problem Classification Problem Date Documented Da te Episodic/Chronic Administrative/social admission (2 sources) Repeated prescription; 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: [Encounter for issue of repeat prescription] Onset: 11-13-2015 Episodic Cardiac dysrhythmias (2 sources) Palpitations; 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: [Palpitations] Onset: 03-07-2017 Episodic Contraceptive and procreative management (2 sources) Sterilization procedure; 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: [Encounter for sterilization] Resolved: 10-22-2018 Episodic Diabetes mellitus without complication (2 sources) Hyperglycemia; 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: [Hyperglycemia, unspecified] Resolved: 06-11-2021 Episodic Headache; including migraine (2 sources) Headache; 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: [Headache, unspecified] Onset: 02-28-2014 Episodic Nonspecific chest pain (2 sources) Chest pain; 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: [Other chest pain] Onset: 01-18-2017 Episodic Other aftercare (2 sources) Therapeutic drug level - finding; 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: [Encounter for therapeutic drug level monitoring] Onset: 04-29-2019 Episodic Other bone disease and musculoskeletal deformities (2 sources) Chondromalacia; 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: [Chondromalacia, right knee] Onset: 06-27-2018 Episodic Other complications of ; puerperium affecting management of mother (2 sources) Disorder of ; 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: [Unspecified disorder of , condition or complication] Onset: 07-29-2014 Episodic Other connective tissue disease (2 sources) Pain in right foot; 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: [Pain in right foot] Onset: 12-04-2013 Episodic Other connective tissue disease (2 sources) Enthesopathy of ankle AND/OR tarsus; 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: [Metatarsalgia, unspecified foot] Onset: 12-04-2013 Episodic Other eye disorders (2 sources) Conjunctival xerosis; 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: [Conjunctival xerosis, unspecified, unspecified eye] Onset: 01-12-2015 Episodic Other lower respiratory disease (4 sources) Dyspnea; 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: [Shortness of breath] Onset: 03-07-2017 Episodic Other non-traumatic joint disorders (2 sources) Arthralgia of the lower leg; 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: [Pain in joint, lower leg] Onset: 07-09-2018 Episodic Other non-traumatic joint disorders (2 sources) Arthralgia of the pelvic region and thigh; 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: [Pain in joint, pelvic region and thigh] Onset: 01-02-2019 Episodic Other non-traumatic joint disorders (4 sources) Shoulder joint pain; 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: [Pain in unspecified shoulder] Onset: 02-18-2014 Episodic Other non-traumatic joint disorders (2 sources) Pain in wrist; 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: [Pain in unspecified wrist] Onset: 07-29-2014 Episodic Other skin disorders (2 sources) Sebaceous cyst; 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: [Sebaceous cyst] Onset: 08-03-2015 Episodic Otitis media and related conditions (2 sources) Eustachian tube salpingitis; 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: [Unspecified Eustachian salpingitis, right ear] Onset: 03-12-2018 Episodic Residual codes; unclassified (1 source) Family history of malignant neoplasm of breast; 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: [FAMILY HX MALIG NEOPLASM OF BREAST] Onset: 07-12-2022 Episodic Residual codes; unclassified (1 source) Family history of malignant neoplasm of ovary; 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: [FAM HX MALIGNANT NEOPLASM OVARY] Onset: 07-12-2022 Episodic Residual codes; unclassified (1 source) Family history of malignant neoplasm of bladder; 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: [FAM HX MALIGNANT NEOPLASM BLADDER] Onset: 07-12-2022 Episodic Residual codes; unclassified (2 sources) Edema; 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: [Edema] Onset: 11-06-2014 Episodic Screening and history of mental health and substance abuse codes (2 sources) History of tobacco use; 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: [Personal history of tobacco use, presenting hazards to health] Onset: 05-10-2017 Episodic Results Test Name Value Interpretation Reference Range Facility XR hand RT min 3V*on 023 XR hand RT min 3V* [facility] [address] [place] [id number] XRay Report Signed Patient: Jing Gray MR#: [id number] 1 : 1975 Acct:[id number] Age/Sex: 47 / F ADM Date: 01/11/23 Loc: XDUCLY Room: Type: [facility] Attending Dr: Angélica FELIZ Copies to: TRINI Avlarado Ordering Provider: TRINI Alvarado Date of Service: 01/11/23 XR/XR hand RT min 3V*: RIGHT HAND INJURY 3 views right hand plain film COMPARISON: None HISTORY: Fourth and fifth metacarpal injury ACUTE FINDINGS: None DEGENERATIVE CHANGE: Unremarkable SOFT TISSUE FINDINGS: Unremarkable JOINT EFFUSION: None POSTOP CHANGES: None BONY MINERALIZATION: Adequate XR/XR hand RT min 3V* IMPRESSION: No acute findings Impression dictated by: Blake Marino M.D.01/11/2023 6:08 PM Dictation Location: [place] [address] Transcribed By: [facility] 01/11/231807 Dictated By: Blake Marino DO 01/11/231806 Signed By: 01/11/23 180 Normal [facility] XR hand RT min 3V* [facility] [employer] Other XR hand RT min 3V* [facility] [employer] Other XR hand RT min 3V* [address] [place] [address] [employer] Other XR hand RT min 3V* [facility] [employer] Other XR hand RT min 3V* XRay Report [facility] [facility] [employer] Other XR hand RT min 3V* Signed [facility] Other XR hand RT min 3V* Patient: Jing Gray MR#: [id number] [employer] Other XR hand RT min 3V* 1 [facility] Other XR hand RT min 3V* : 1975 Acct:[id number] [employer] Other XR hand RT min 3V* Age/Sex: 47 / F ADM Date: 01/11/23 [facility] Other XR hand RT min 3V* Loc: XDUCLY Room: Type: REG CLI [facility] Other XR hand RT min 3V* Attending Dr: Angélica FELIZ [facility] Other XR hand RT min 3V* Copies to: TRINI Alvarado [facility] Other XR hand RT min 3V* Ordering Provider: TRINI Alvarado [facility] Other XR hand RT min 3V* Date of Service: 01/11/23 [facility] Other XR hand RT min 3V* XR/XR hand RT min 3V*: RIGHT HAND INJURY [facility] Other XR hand RT min 3V* 3 views right hand plain film [facility] Other XR hand RT min 3V* COMPARISON: None [facility] Other XR hand RT min 3V* HISTORY: Fourth and fifth metacarpal injury [facility] Other XR hand RT min 3V* ACUTE FINDINGS: None [facility] Other XR hand RT min 3V* DEGENERATIVE CHANGE: Unremarkable [facility] Other XR hand RT min 3V* SOFT TISSUE FINDINGS: Unremarkable [facility] Other XR hand RT min 3V* JOINT EFFUSION: None [facility] Other XR hand RT min 3V* POSTOP CHANGES: None [facility] Other XR hand RT min 3V* BONY MINERALIZATION: Adequate [facility] Other XR hand RT min 3V* XR/XR hand RT min 3V* [facility] Other XR hand RT min 3V* IMPRESSION: No acute findings [facility] Other XR hand RT min 3V* Impression dictated by: Blake Marino M.D.01/11/2023 6:08 PM [employer] Other XR hand RT min 3V* Dictation Location: [facility] [employer] Other XR hand RT min 3V* Transcribed By: [facility] 01/11/231807 [facility] Other XR hand RT min 3V* Dictated By: Blake Marino DO 01/11/231806 [facility] Other XR hand RT min 3V* Signed By: [facility] Other XR hand RT min 3V* 01/11/23 180 [facility] [employer] Other PROLACTINon 01-06-2023 Prolactin 34.5 ng/mL Critically high 4.8-23.3 [facility] Comment on above: Performed By: #### P ROLAC #### [facility] [address] [address] [address] Digna Thomas CBC AUTO DIFFon 01-05-2023 BASO # 0.1 103/ul Normal 0.0-0.1 [facility] Comment on above: Performed By: #### C BC ####[facility] [address] [id number] Thomas Basophils/100 WBC (Bld) 0.8 % Normal 0.2-2.0 [facility] Comment on above: Performed By: #### C BC ####[facility] [address] [id number] Thomas EO # 0.5 103/ul Normal 0.0-0.7 [facility] Comment on above: Performed By: #### C BC ####[facility] [address] [id number]. Digna Thomas Eosinophils/100 WBC (Bld) 5.0 % Normal 0.9-7.0 [facility] Comment on above: Performed By: #### C BC ####[facility] [address] [address]Dr. Digna Thomas Erythrocyte distribution width (RBC) [Ratio] 13.0 % Normal 11.0-15.0 [facility] Comment on above: Performed By: #### C BC ####[facility] N[address] [place], [place] [address]Dr. Digna Thomas Hematocrit (Bld) [Volume fraction] 44.6 % Normal 36.0-48.0 [facility] Comment on above: Performed By: #### C BC ####[facility] [address] [place], [place] [address]Dr. Digna Thomas Hemoglobin (Bld) [Mass/Vol] 14.4 g/dL Normal 12.0-16.0 [facility] Comment on above: Performed By: #### C BC ####[facility] [address] [place], [place] [address]Dr. Digna Thomas IG # 0.05 10e3/ul Critically high 0.00-0.03 [facility] Comment on above: Performed By: #### C BC ####[facility] [address] [address]Dr. Digna Thomas IG % 0.5 % Normal 0.0-0.5 [facility] Comment on above: Performed By: #### C BC ####[facility] [address] [place], [place] [address]Dr. Digna Thomas LYMPH # 2.3 103/ul Normal 1.2-3.8 [facility] Comment on above: Performed By: #### C BC ####[facility] [address] [place], [place] [address]Dr. Digna Thomas Lymphocytes/100 WBC (Bld) 23.0 % Normal 20.5-60.0 [facility] Comment on above: Performed By: #### C BC ####[facility] [address] [id number]. Digna Thomas MANUAL DIFF REQ NO Normal [facility] Comment on above: Performed By: #### C BC ####[facility] [address] [id number]. Digna Thomas MCH (RBC) [Entitic mass] 28.3 pg Normal 26.7-34.0 [facility] Comment on above: Performed By: #### C BC ####[facility] [address]miw[address] [place], [place] [address]Dr. Digna Thomas MCHC (RBC) [Mass/Vol] 32.3 g/dL Normal 29.9-35.2 [facility] Comment on above: Performed By: #### C BC ####[facility] [address]fmke[address] [place], [place] [address]Dr. Digna Thomas MCV (RBC) [Entitic vol] 87.8 fL Normal 81.0-99.0 [facility] Comment on above: Performed By: #### C BC ####[facility] [address] [place], [place] [address]Dr. Digna Thomas MONO # 0.8 103/ul Normal 0.3-0.8 [facility] Comment on above: Performed By: #### C BC ####[facility] [address] [place], [place] [address]Dr. Digna William Monocytes/100 WBC (Bld) 7.9 % Normal 1.7-12.0 [facility] Comment on above: Performed By: #### C BC ####[facility] Sry[address] [place], [place] [id number]. Digna Thomas NEUT # 6.3 103/ul Normal 1.4-6.5 [facility] Comment on above: Performed By: #### C BC ####[facility] [address] [place], [place] [address]Dr. Digna Thomas Neutrophils/100 WBC (Bld) 62.8 % Normal 43.0-75.0 [facility] Comment on above: Performed By: #### C BC ####[facility] [address] [place], [place] [address]Ul. Digna Thomas Platelet mean volume (Bld) [Entitic vol] 9.9 fL Normal 9.5-13.5 [facility] Comment on above: Performed By: #### C BC ####[facility] [address] [place], [place] [address]Lf. Digna Thomas PLT 223 103/ul Normal 150-450 [facility] Comment on above: Performed By: #### C BC ####[facility] E[address]zbploo[address]63 [place], [place] [address]Mw. Digna Thomas RBC 5.08 106/ul Normal 4.20-5.40 [facility] Comment on above: Performed By: #### C BC ####[facility] [address]lx[address] [place], [place] [address]Bu. Digna Thomas WBC 10.0 103/ul Normal 4.0-11.0 [facility] Comment on above: Performed By: #### C BC ####[facility] [address] [place], [place] [address]CmNile Thomas LIPID PROFILEon 01-05-2023 CHOL-HDL RATIO NORM SEE BELOW Normal [facility] Comment on above: Result Comment: 3.3 - 4.4 LOW RISK 4.4 - 7.1 AVERAGE RISK 7.1 - 11.0 MODERATE RISK >11.0 HIGH RISK Performed By: #### B MP, TSH, LIPID #### [facility] [address] [address] [address] Digna Thomas Cholesterol [Mass/Vol] 179 mg/dL Normal <=200 [facility] Comment on above: Performed By: #### B MP, TSH, LIPID #### [facility] [address] [id number] Digna Thomas Cholesterol in HDL [Mass/Vol] 55 mg/dL Normal 40-60 [facility] Comment on above: Performed By: #### B MP, TSH, LIPID #### [facility] [address] [id number] Digna Thomas Cholesterol in LDL [Mass/Vol] 103.8 mg/dL Normal [facility] Comment on above: Performed By: #### B MP, TSH, LIPID #### [facility] [address] [address] [address] Digna Thomas Cholesterol.total/Ch olesterol in HDL [Mass ratio] 3.3 {ratio} Normal [facility] Comment on above: Performed By: #### B MP, TSH, LIPID #### [facility] [address] [address] [address] Digna Thomas HDL NORMAL > or = 60 mg/dl - LOW CARDIOVASCULAR RISK <40 mg/dl - HIGH CARDIOVASCULAR RISK Normal [facility] Comment on above: Performed By: #### B MP, TSH, LIPID #### [facility] [address] [address] [address] Digna Thomas LDL CALC NORMAL SEE BELOW Normal [facility] Comment on above: Result Comment: <100 mg/dl OPTIMAL 100 - 129 mg/dl NEAR OR ABOVE OPTIMAL 130 - 159 mg/dl BORDERLINE HIGH 160 - 189 mg/dl HIGH >190 mg/dl VERY HIGH Performed By: #### B MP, TSH, LIPID #### [facility] [address] [address] [address] Digna Thomas Triglyceride [Mass/Vol] 101 mg/dL Normal <=150 [facility] Comment on above: Performed By: #### B MP, TSH, LIPID #### [facility] [address] [place] [address] Dr. Digna Thomas VLDL CALC 20.2 mg/dL Normal [facility] Comment on above: Performed By: #### B MP, TSH, LIPID #### [facility] [address] [address] [address] Digna Thomas PROF CHEM 8 (BAS METB)on Anion gap [Moles/Vol] 13.3 mmol/L Normal [facility] Comment on above: Performed By: #### B MP, TSH, LIPID #### [facility] [address] [address] [address] Digna Thomas Calcium [Mass/Vol] 9.4 mg/dL Normal 8.5-10.1 [facility] Comment on above: Performed By: #### B MP, TSH, LIPID #### [facility] [address] [address] [address] Digna Thomas Chloride [Moles/Vol] 104 mmol/L Normal 98-107 [facility] Comment on above: Performed By: #### B MP, TSH, LIPID #### [facility] [address] [address] [address] Digna Thomas CO2 [Moles/Vol] 27.1 mmol/L Normal 21.0-32.0 [facility] Comment on above: Performed By: #### B MP, TSH, LIPID #### [facility] [address] [place] [address] Dr. Digna Thomas Creatinine [Mass/Vol] 0.71 mg/dL Normal 0.55-1.02 [facility] Comment on above: Performed By: #### B MP, TSH, LIPID #### [facility] [address] [address] [address] Digna Thomas EGFR-AF SURINAMESE >60 Normal >=60 [facility] Comment on above: Performed By: #### B MP, TSH, LIPID #### [facility] [address] [place] [address] Dr. Digna Thomas EGFR-NON AF SURINAMESE >60 Normal >=60 [facility] Comment on above: Performed By: #### B MP, TSH, LIPID #### [facility] [address] [place] [address] Dr. Digna Thomas Glucose [Mass/Vol] 163 mg/dL Critically high 74-106 [facility] Comment on above: Performed By: #### B MP, TSH, LIPID #### [facility] [address] [address] [address] Digna Thomas Potassium [Moles/Vol] 4.4 mmol/L Normal 3.5-5.1 [facility] Comment on above: Performed By: #### B MP, TSH, LIPID #### [facility] [address] [place] [address] Dr. Digna Thomas Sodium [Moles/Vol] 140 mmol/L Normal 136-145 [facility] Comment on above: Performed By: #### B MP, TSH, LIPID #### [facility] [address] [address] [address] Digna Thomas Urea nitrogen [Mass/Vol] 15.0 mg/dL Normal 7.0-18.0 [facility] Comment on above: Performed By: #### B MP, TSH, LIPID #### [facility] [address] [address] [address] Digna Thomas Urea nitrogen/Creatinine [Mass ratio] 21.1 mg/mg Normal [facility] Comment on above: Performed By: #### B MP, TSH, LIPID #### [facility] [address] [address] [address] Digna Thomas TSHon 01-05-2023 TSH 3.955 uIU/mL Critically high 0.358-3.740 [facility] Comment on above: Performed By: #### B MP, TSH, LIPID #### [facility] [address] [address] [address] Digna Thomas XR CSPINE MIN 4 VIEWSon 10-13 XR CSPINE MIN 4 VIEWS EXAMINATION: XR CSPINE MIN 4 VIEWS HISTORY: Cervical spondylosis COMPARISON: No relevant comparison available. FINDINGS: BONES: No significant spondylosis, scoliosis, fracture, or visible bony lesion. DISC SPACES: Minimal narrowing at C6-7. PARASPINOUS: Negative. No paraspinous abnormality is seen. OTHER: Negative. IMPRESSION: 1. Suspect C6-7 mild degenerative disc disease. Electronically authenticated by: FELIPE TRINH Date: 2022-11-04 08:02 Normal [facility] GLYCOHEMOGLOBIN A1Con 2022 ADA RECOMMENDATION SEE BELOW Normal [facility] Comment on above: Result Comment: ADA RECOMMENDED LIMIT 4.0 - 6.0 ADA THERAPEUTIC TARGET < 7.0 ACTION SUGGESTED > 7.0 Performed By: #### A 1C ####[facility] [address] [address]Dr. Digna Thomas Glucose [Mass/Vol] 166 mg/dL Normal [facility] Comment on above: Performed By: #### A 1C ####[facility] [address] [id number] Thomas HbA1c (Bld) [Mass fraction] 7.4 % Critically high 4.5-6.2 [facility] Comment on above: Performed By: #### A 1C ####[facility] [address] [id number]. Digna Thomas PROLACTINon 07-12-2022 Prolactin 48.0 ng/mL Critically high 4.8-23.3 [facility] Comment on above: Performed By: #### P ROLAC #### [facility] [address] [place], [place] [address] Dr. Digna Thomas CBC AUTO DIFFon 07-11-2022 BASO # 0.1 103/ul Normal 0.0-0.1 [facility] Comment on above: Performed By: #### C BC ####[facility] [address] [address]DrNile Thomas Basophils/100 WBC (Bld) 0.8 % Normal 0.2-2.0 [facility] Comment on above: Performed By: #### C BC ####[facility] [address] [place], [place] [address]DrNile Thomas EO # 0.7 103/ul Normal 0.0-0.7 [facility] Comment on above: Performed By: #### C BC ####[facility] [address] [address]Dr. Digna Thomas Eosinophils/100 WBC (Bld) 5.8 % Normal 0.9-7.0 [facility] Comment on above: Performed By: #### C BC ####[facility] [address] [place], [place] [address]DrNile Thomas Erythrocyte distribution width (RBC) [Ratio] 12.7 % Normal 11.0-15.0 [facility] Comment on above: Performed By: #### C BC ####[facility] [address] [address]DrNile Thomas Hematocrit (Bld) [Volume fraction] 45.4 % Normal 36.0-48.0 [facility] Comment on above: Performed By: #### C BC ####[facility] [address] [address]Dr. Digna William Hemoglobin (Bld) [Mass/Vol] 15.3 g/dL Normal 12.0-16.0 [facility] Comment on above: Performed By: #### C BC ####[facility] [address] [address]Dr. Anajs William IG # 0.04 10e3/ul Critically high 0.00-0.03 [facility] Comment on above: Performed By: #### C BC ####[facility] [address] [address]Dr. Digna Thomas IG % 0.3 % Normal 0.0-0.5 [facility] Comment on above: Performed By: #### C BC ####[facility] [address] [place], [place] [address]Dr. Digna Thomas LYMPH # 3.3 103/ul Normal 1.2-3.8 [facility] Comment on above: Performed By: #### C BC ####[facility] [address] [address]DrNile Thomas Lymphocytes/100 WBC (Bld) 28.1 % Normal 20.5-60.0 [facility] Comment on above: Performed By: #### C BC ####[facility] [address] [address]Dr. Digna Thomas MANUAL DIFF REQ NO Normal [facility] Comment on above: Performed By: #### C BC ####[facility] [address] [place] [id number] Thomas MCH (RBC) [Entitic mass] 29.2 pg Normal 26.7-34.0 [facility] Comment on above: Performed By: #### C BC ####[facility] [address]icusrdho[address] [place] [id number]. Digna Thomas MCHC (RBC) [Mass/Vol] 33.7 g/dL Normal 29.9-35.2 [facility] Comment on above: Performed By: #### C BC ####[facility] [address] [place] [id number] Perezjs William MCV (RBC) [Entitic vol] 86.6 fL Normal 81.0-99.0 [facility] Comment on above: Performed By: #### C BC ####[facility] [address] [place] [id number] Thomas MONO # 0.8 103/ul Normal 0.3-0.8 [facility] Comment on above: Performed By: #### C BC ####[facility] [address] [place] [address]Dr. Digna Thomas Monocytes/100 WBC (Bld) 6.4 % Normal 1.7-12.0 [facility] Comment on above: Performed By: #### C BC ####[facility] [address] [place], [place] [address]Dr. Digna Thomas NEUT # 6.9 103/ul Critically high 1.4-6.5 [facility] Comment on above: Performed By: #### C BC ####[facility] [address] [place], [place] [address]Dr. Digna Thomas Neutrophils/100 WBC (Bld) 58.6 % Normal 43.0-75.0 [facility] Comment on above: Performed By: #### C BC ####[facility] [address] [place] [id number]. Digna Thomas Platelet mean volume (Bld) [Entitic vol] 10.0 fL Normal 9.5-13.5 [facility] Comment on above: Performed By: #### C BC ####[facility] [address] [place] [id number]. Digna Thomas PLT 242 103/ul Normal 150-450 [facility] Comment on above: Performed By: #### C BC ####[facility] [address]me[address] [place] [id number] Thomas RBC 5.24 106/ul Normal 4.20-5.40 [facility] Comment on above: Performed By: #### C BC ####[facility] V[address] [place] [id number]. Digna Thomas WBC 11.8 103/ul Critically high 4.0-11.0 [facility] Comment on above: Performed By: #### C BC ####[facility] [address]clq[address] [place] [id number]. Digna Thomas GLYCOHEMOGLOBIN A1Con 2021 ADA RECOMMENDATION SEE BELOW Normal [facility] Comment on above: Result Comment: ADA RECOMMENDED LIMIT 4.0 - 6.0 ADA THERAPEUTIC TARGET < 7.0 ACTION SUGGESTED > 7.0 Performed By: #### A 1C ####[facility] [address] [address]Dr. Dgina Thomas Glucose [Mass/Vol] 183 mg/dL Normal [facility] Comment on above: Performed By: #### A 1C ####[facility] [address] [place], [place] [address]Dr. Digna Thomas HbA1c (Bld) [Mass fraction] 8.0 % Critically high 4.5-6.2 [facility] Comment on above: Performed By: #### A 1C ####[facility] [address] [place], [place] [address]Dr. Digna Thomas LIPID PROFILEon 07-11-2022 CHOL-HDL RATIO NORM SEE BELOW Normal [facility] Comment on above: Result Comment: 3.3 - 4.4 LOW RISK 4.4 - 7.1 AVERAGE RISK 7.1 - 11.0 MODERATE RISK >11.0 HIGH RISK Performed By: #### B MP, LIPID, TSH ####[facility] [address] [place] [id number]. Anajs Thomas Cholesterol [Mass/Vol] 161 mg/dL Normal <=200 [facility] Comment on above: Performed By: #### B MP, LIPID, TSH ####[facility] [address] [place] [id number]. Digna Thomas Cholesterol in HDL [Mass/Vol] 51 mg/dL Normal 40-60 [facility] Comment on above: Performed By: #### B MP, LIPID, TSH ####[facility] [address] [place] [address]Dr. Digna Thomas Cholesterol in LDL [Mass/Vol] 86.2 mg/dL Normal [facility] Comment on above: Performed By: #### B MP, LIPID, TSH ####[facility] [address]gos[address] [place] [id number]. Digna Thomas Cholesterol.total/Ch olesterol in HDL [Mass ratio] 3.2 {ratio} Normal [facility] Comment on above: Performed By: #### B MP, LIPID, TSH ####[facility] [address] [address]Dr. Digna Thomas HDL NORMAL > or = 60 mg/dl - LOW CARDIOVASCULAR RISK <40 mg/dl - HIGH CARDIOVASCULAR RISK Normal [facility] Comment on above: Performed By: #### B MP, LIPID, TSH ####[facility] [address] [place] [address]Dr. Digna Thomas LDL CALC NORMAL SEE BELOW Normal [facility] Comment on above: Result Comment: <100 mg/dl OPTIMAL 100 - 129 mg/dl NEAR OR ABOVE OPTIMAL 130 - 159 mg/dl BORDERLINE HIGH 160 - 189 mg/dl HIGH >190 mg/dl VERY HIGH Performed By: #### B MP, LIPID, TSH ####[facility] [address] [place] [address]Dr. Digna Thomas Triglyceride [Mass/Vol] 119 mg/dL Normal <=150 [facility] Comment on above: Performed By: #### B MP, LIPID, TSH ####[facility] [address]em[address] [place] [id number]. Digna Thomas VLDL CALC 23.8 mg/dL Normal [facility] Comment on above: Performed By: #### B MP, LIPID, TSH ####[facility] [address]wf[address] [place] [address]Dr. Digna Thomas MG MAMM SCREEN 3D JANE CADon 07-11-2022 MG MAMM SCREEN 3D JANE CAD Patient: JING GRAYNile Exam Date: 07/11/2022 : 1975 Gender:F Ordering : DR KELECHI GALVAN D.O. Admission #: [id number] Family : Order #: [id number] CLICK HERE TO VIEW EXAM RADIOLOGY REPORT PROCEDURE: MAMMOGRAM SCREENING 3D BILATERAL CAD COMPARISON: MG MAMM JANE SCRN W CAD DIG, 01/02/2015. INDICATIONS: Screening mammography Calculator Name NCI Breast Cancer Risk Assessment Tool 5 Year Breast Cancer Risk 1.10% Lifetime Breast Cancer Risk 11.30% Personal Breast Cancer No Personal Ovarian Cancer No Treatments None Family Cancers Grandmother-materna l with breast cancer at age 53; Aunt-maternal with breast cancer at age 38; Aunt-maternal with breast cancer at age 45; Aunt-maternal with ovarian cancer at age 40; Aunt-maternal with bladder cancer at age 45; Father with bladder cancer at age 52. LOCATION: [facility] BREAST COMPOSITION: Scattered areas fibroglandular density. FINDINGS: DIAGNOSTIC CATEGORY 2--BENIGN FINDING. NO CHANGE FROM COMPARISON. Scattered benign-appearing calcifications are present. Scattered benign-appearing nodules are present. Scattered benign-appearing lymph nodes are present. RIGHT BREAST: No significant suspicious finding. LEFT BREAST: No significant suspicious finding. RECOMMENDATIONS: ROUTINE MAMMOGRAM AND CLINICAL EVALUATION IN 12 MONTHS. PLEASE NOTE: A NORMAL MAMMOGRAM DOES NOT EXCLUDE THE POSSIBILITY OF BREAST CANCER. A CLINICALLY SUSPICIOUS PALPABLE LUMP SHOULD BE BIOPSIED. Dictated by: Angela Cagle MD on 07/11/2022 at 10:10 Approved by: Angela Cagle MD on 07/11/2022 at 10:14 Normal [facility] MICROALBUMIN, RAND URon 10-3 mALB 10.1 mg/L Normal <=30.0 [facility] Comment on above: Performed By: #### M ALBR #### [facility] [address] [place], [place] [address] Dr. Digna Thomas PROF CHEM 8 (BAS METB)on Anion gap [Moles/Vol] 10.6 mmol/L Normal [facility] Comment on above: Performed By: #### B MP, LIPID, TSH ####[facility] [address] [place], [place] [address]Dr. Digna Thomas Calcium [Mass/Vol] 9.3 mg/dL Normal 8.5-10.1 [facility] Comment on above: Performed By: #### B MP, LIPID, TSH ####[facility] [address] [place] [address]Dr. Digna William Chloride [Moles/Vol] 99 mmol/L Normal 98-107 [facility] Comment on above: Performed By: #### B MP, LIPID, TSH ####[facility] [address]bz[address] [place] [address]Dr. Digna William CO2 [Moles/Vol] 28.3 mmol/L Normal 21.0-32.0 [facility] Comment on above: Performed By: #### B MP, LIPID, TSH ####[facility] [address] [place], [place] [address]Dr. Digna Thomas Creatinine [Mass/Vol] 0.74 mg/dL Normal 0.55-1.02 [facility] Comment on above: Performed By: #### B MP, LIPID, TSH ####[facility] [address] [place], [place] [address]Dr. Digna William EGFR-AF SURINAMESE >60 Normal >=60 [facility] Comment on above: Performed By: #### B MP, LIPID, TSH ####[facility] [id number] [place], [place] [address]Dr. Digna William EGFR-NON AF SURINAMESE >60 Normal >=60 [facility] Comment on above: Performed By: #### B MP, LIPID, TSH ####[facility] [id number] [place] [address]Dr. Digna William Glucose [Mass/Vol] 190 mg/dL Critically high 74-106 [facility] Comment on above: Performed By: #### B MP, LIPID, TSH ####[facility] [id number] [place] [address]Dr. Digna Thomas Potassium [Moles/Vol] 3.9 mmol/L Normal 3.5-5.1 [facility] Comment on above: Performed By: #### B MP, LIPID, TSH ####[facility] [id number] [place], [place] [address]Dr. Digna Thomas Sodium [Moles/Vol] 134 mmol/L Critically low 136-145 [facility] Comment on above: Performed By: #### B MP, LIPID, TSH ####[facility] [id number] [place], [place] [address]Dg. Digna Thomas Urea nitrogen [Mass/Vol] 13.0 mg/dL Normal 7.0-18.0 [facility] Comment on above: Performed By: #### B MP, LIPID, TSH ####[facility] [address] [place], [place] [address]Lw. Digna Thomas Urea nitrogen/Creatinine [Mass ratio] 17.6 mg/mg Normal [facility] Comment on above: Performed By: #### B MP, LIPID, TSH ####[facility] [address] [place], [place] [address]Fr. Digna Thomas TSHon 07-11-2022 TSH 4.084 uIU/mL Critically high 0.358-3.740 [facility] Comment on above: Performed By: #### B MP, LIPID, TSH #### [facility] [address] [place], [place] [address] Dr. Digna Thomas Vital Signs Date Time Vital Sign Value Performing Clinician Facility 08-22-2023 08:30-0500 Body height 165.1 cm Kelechi Galvan Other [facility] Other 08-22-2023 08:30-0500 Body mass index (BMI) [Ratio] 52.95 kg/m2 Kelechi Ball Other [facility] Other 08-22-2023 08:30-0500 Body weight 144.34 kg Kelechi Galvan Other [facility] Other 08-22-2023 08:30-0500 Diastolic blood pressure 75 mm[Hg] Kelechi [employer] Other [facility] Other 08-22-2023 08:30-0500 Respiratory rate 12 /min Kelechi [employer] Other [facility] Other 08-22-2023 08:30-0500 Systolic blood pressure 115 mm[Hg] Kelechi Ball Other [facility] Other 05-26-2023 09:40-0400 Body height 165.1 cm Angélica Hue Other [facility] Other 05-26-2023 09:40-0400 Body mass index (BMI) [Ratio] 51.88 kg/m2 Angélica Hue Other [facility] Other 05-26-2023 09:40-0400 Body temperature 98 [degF] Angélica Hue Other [facility] Other 05-26-2023 09:40-0400 Body weight 141.43 kg Angélica Hue Other [facility] Other 05-26-2023 09:40-0400 Diastolic blood pressure 68 mm[Hg] Angélica Hue Other [facility] Other 05-26-2023 09:40-0400 Respiratory rate 18 /min Angélica Hue Other [facility] Other 05-26-2023 09:40-0400 SaO2% (BldA) [Mass fraction] 96 % Angélica Hue Other [facility] Other 05-26-2023 09:40-0400 Systolic blood pressure 110 mm[Hg] Angélica Hue Other [facility] Other 02-28-2023 13:15-0400 Body height 165.1 cm Kelechi Ball Other [facility] Other 02-28-2023 13:15-0400 Body mass index (BMI) [Ratio] 52.55 kg/m2 Kelechi Ball Other [facility] Other 02-28-2023 13:15-0400 Body weight 143.25 kg Kelechi Ball Other [facility] Other 02-28-2023 13:15-0400 Diastolic blood pressure 77 mm[Hg] Kelechi Ball Other [facility] Other 02-28-2023 13:15-0400 Respiratory rate 12 /min Kelechi Ball Other [facility] Other 02-28-2023 13:15-0400 Systolic blood pressure 118 mm[Hg] Kelechi Ball Other [facility] Other 01-16-2023 12:30-0400 Body height 165.1 cm Kelechi Ball Other [facility] Other 01-16-2023 12:30-0400 Body mass index (BMI) [Ratio] 52.28 kg/m2 Kelechi Ball Other [facility] Other 01-16-2023 12:30-0400 Body weight 142.52 kg Kelechi Ball Other [facility] Other 01-16-2023 12:30-0400 Diastolic blood pressure 72 mm[Hg] Kelechi Ball Other [facility] Other 01-16-2023 12:30-0400 Respiratory rate 16 /min Kelechi Ball Other [facility] Other 01-16-2023 12:30-0400 Systolic blood pressure 147 mm[Hg] Kelechi Ball Other [facility] Other 01-11-2023 18:10-0400 Body height 165.1 cm Angélica Swann Other [facility] Other 01-11-2023 18:10-0400 Body mass index (BMI) [Ratio] 52.41 kg/m2 Angélica Hue Other [facility] Other 01-11-2023 18:10-0400 Body temperature 99.6 [degF] Angélica Swann Other [facility] Other 01-11-2023 18:10-0400 Body weight 142.88 kg Angélica Hue Other [facility] Other 01-11-2023 18:10-0400 Diastolic blood pressure 64 mm[Hg] Angélica Hue Other [facility] Other 01-11-2023 18:10-0400 Respiratory rate 20 /min Angélica Mcqueenmond Other [facility] Other 01-11-2023 18:10-0400 SaO2% (BldA) [Mass fraction] 96 % Angélica Hue Other [facility] Other 01-11-2023 18:10-0400 Systolic blood pressure 117 mm[Hg] Angélica Hue Other [facility] Other 10-18-2022 12:00-0500 Body height 165.1 cm Kelechi Ball Other [facility] Other 10-18-2022 12:00-0500 Body mass index (BMI) [Ratio] 52.31 kg/m2 Kelechi Ball Other [facility] Other 10-18-2022 12:00-0500 Body weight 142.61 kg Kelechi Galvan Other [facility] Other 10-18-2022 12:00-0500 Diastolic blood pressure 84 mm[Hg] Kelechi Galvan Other [facility] Other 10-18-2022 12:00-0500 Respiratory rate 12 /min Kelechi Galvan Other [facility] Other 10-18-2022 12:00-0500 Systolic blood pressure 122 mm[Hg] Kelechi Galvan Other [facility] Other Encounters Encounter Date Encounter Type Care Provider Facility Start: 08-28-2023 End: 08-28-2023 ambulatory Kelechi Galvan Other [facility] Other Start: 08-28-2023 Telephone encounter Kelechi [facility] Start: 08-26-2023 End: 08-26-2023 ambulatory Kelechi Galvan Other [facility] Other Start: 08-26-2023 Telephone encounter Kelechi [facility] Start: 08-22-2023 End: 08-22-2023 ambulatory Kelechi Galvan Other [facility] Other Start: 08-22-2023 Encounter for genera l adult medical examination without abnormal findings Kelechi Galvan [facility] Start: 08-22-2023 Periodic preventive med est patient 40-64yrs Kelechi Galvan [facility] Start: 05-26-2023 End: 05-26-2023 ambulatory Angélica Swann Other [facility] Other Start: 05-26-2023 Office outpatient vi sit 15 minutes Angélica Swann [facility] Start: 04-18-2023 End: 04-18-2023 ambulatory Kelechi Galvan Other [facility] Other Start: 04-18-2023 Office outpatient vi sit 15 minutes Kelechi Galvan [facility] Start: 02-28-2023 End: 02-28-2023 ambulatory Kelechi Galvan Other [facility] Other Start: 02-28-2023 Office outpatient vi sit 15 minutes Kelechi Cole [facility] Start: 01-19-2023 End: 01-19-2023 ambulatory Kelechi Galvan Other [facility] Other Start: 01-19-2023 Telephone encounter Kelechi Galvan [facility] Start: 01-16-2023 End: 01-16-2023 ambulatory Kelechi Galvan Other [facility] Other Start: 01-16-2023 Office outpatient vi sit 25 minutes Kelechi Galvan [facility] Start: 01-11-2023 End: 01-11-2023 Patient encounter procedure AERIAL SURVEY TECHNICIAN-C Angélica Swann Work Phone: [facility] Work Phone: Start: 01-11-2023 End: 01-11-2023 ambulatory Angélica Swann [facility] Work Phone: Start: 01-11-2023 Office outpatient vi sit 15 minutes Angélica Swann [facility] Start: 01-11-2023 Telephone encounter Kelechi Galvan [facility] Start: 01-09-2023 Encounter for genera l adult medical examination without abnormal findings DR KELECHI GALVAN [facility] Start: 01-05-2023 End: 01-06-[address] KELECHI GALVAN Facility:[facility] Start: 01-05-2023 End: 01-06-2023 Encounter for general adult medical examination without abnormal findings DR KELECHI GALVAN Facility:[facility] Start: 01-03-2023 End: 01-03-2023 ambulatory Kelechi Galvan Other [facility] Other Start: 01-03-2023 Encounter for genera l adult medical examination without abnormal findings Kelechi Cole [facility] Start: 01-03-2023 Patient encounter status Conrad Galvan Other [facility] Other Start: 01-03-2023 Telephone encounter Kelechi Galvan [facility] Start: 12-21-2022 End: 12-22-[address] KELECHI GALVAN Facility:[facility] Start: 12-08-2022 End: 12-09-[address] KELECHI GALVAN Facility:[facility] Start: 11-23-2022 End: 11-23-2022 ambulatory Kelechi Galvan Other [facility] Other Start: 11-23-2022 Telephone encounter Kelechi Galvan [facility] Start: 11-16-2022 End: 11-17-[address] KELECHI GALVAN Facility:[facility] Start: 11-09-2022 End: 11-24-[address] KELECHI GALVAN Facility:[facility] Start: 11-03-2022 End: 11-04-[address] KELECHI GALVAN Facility:[facility] Start: 10-27-2022 End: 10-28-[address] KELECHI GALVAN [facility] Other Start: 10-27-2022 Telephone encounter Kelechi [facility] Start: 10-18-2022 End: 10-18-2022 ambulatory Kelechi Galvan Other [facility] Other Start: 10-18-2022 Office outpatient vi sit 25 minutes Kelechi Galvan [facility] Start: 10-07-2022 End: 10-07-2022 ambulatory Kelechi Galvan Other [facility] Other Start: 10-07-2022 Telephone encounter Kelechi Galvan [facility] Start: 08-26-2022 Adult health examination Conrad Galvan Other [facility] Other Start: 07-11-2022 End: 07-12-[address] KELECHI GALVAN Facility:[facility] Start: 04-07-2022 End: 04-08-[address] DEANN ELIAS . Facility: Start: 07-28-2019 Pre-procedure evalua tion check Kelechi Galvan Other [facility] Other Start: 07-17-2018 Gynecological examin ation normal Kelechi Galvan Other [facility] Other Procedures Date Procedure Procedure Detail Performing Clinician Start: 01-11-2023 Plain X-ray of right hand AERIAL SURVEY TECHNICIAN-C Angélica Swann Work Phone: Start: 01-18-2019 Preoperative cardiov ascular examination Kelechi Galvan Other End: 10-22-2018 Contraception care education Kelechi Galvan Other Depression screening Chuy Galvan Other Ligation of fallopian tube B enjakan Galvan Other Screening for malign ant neoplasm of breast Kelechi Galvan Other Plan of Treatment Date Care Activity Detail Author Start: 03-09-2023 ambulatory Ambulatory Facility: 1 Payers Date Payer Category Payer Self-pay 1975 Unknown [id number] 2.16.84 [id number] 1975 Unknown [id number] 2.16.84 [id number] 1974 Unknown [id number] 2.16.84 [id number] 1974 Unknown [id number] 2.16.84 [id number] 1974 Unknown [id number] 2.16.84 [id number] 1974 Unknown [id number] 2.16.84 [id number] 1974 Unknown [id number] 2.16.84 [id number] 1974 Unknown [id number] 2.16.84 [id number] 1974 Unknown [id number] 2.16.84 [id number] 1974 Unknown [id number] 2.16.84 [id number] 1974 Unknown [id number] 2.16.84 [id number] 1959 Unknown [id number] 2.1 [id number] 1959 Unknown [id number] Medicaid [place] [employer] [id number] Unknown [id number] 2.16.8 [id number] Social History Date Type Detail Facility Unknown if ever smoked [facility] Other Sex Assigned At Sex Assigned At Bir th [facility] Other Start: 1975 Sex Assigned At Female F [facility] Clinical Notes 05-31-2011 to 08-26-2023 Note Date & Type Note Facility 08-26-2023 Evaluation note Encounter Date Diagnosis Assessment Notes Aug, Hyperprolactinemia (ICD-10 - E22.1) [facility] Other [id number] Evaluation note* Encounter Date Diagnosis Assessment Notes Treatment Notes Treatment Clinical Notes Aug, Wellness examination (ICD-10 - Z00.00) Healthy diet and exercise. Reviewed age-appropriate preventive testing recommended. Aug, REBA (obstructive sle ep apnea) (ICD-10 - G47.33) AHI 104 w/ Psat 68%, BiPAP , full facial mask This patient is aware of the benefits associated with REBA: With continued use, the patient reduces the risk for NV, CVA, HTN, cardiac dysrhythmias and sudden cardiac deaths.The patient is also aware of the association between REBA and morning headaches, daytime somnolence, fatigue and obesity, which also has been improved with continued use.The patient is compliant with treatment, wearing the equipment every night for greater than 4 hours.The patient is instructed to continue use of the CPAP for REBA treatment. Aug, Primary hypertension (ICD-10 - I10) This patient is instructed to consume a healthy, low-fat, low-salt diet. They are also encouraged to continue exercise to achieve/maintain a normal BMI. Aug, Type 2 diabetes mellitus with hyperglycemia, without long-term current use of insulin (ICD-10 - E11.65) This patient is following a comprehensive diabetic treatment plan. They are checking their feet daily for calluses and nonhealing ulcers. They are being seen for yearly dilated eye examinations. Goals: SBP less than 130, LDL less than 100, FBS less than 140, A1C less than 7%. They are checking their BS daily, will which are reviewed at the office visit. Continue regular routine monitoring of A1C,] Microalbumin, Dilated eye exam and Foot exam Aug, Current moderate episode of major depressive disorder without prior episode (ICD-10 - F32.1) Healthy diet and exercise. No change in medical therapy Aug, Hyperprolactinemia (ICD-10 - E22.1) Check prolactin level. Denies headaches or visual distortion Aug, Morbid (severe) obes ity due to excess calories (ICD-10 - E66.01) This patient has been instructed on a low-fat, high-fiber diet. They are instructed to reduce calories, portion sizes and snacks. It is recommended that they exercise for 30 minutes, 3-5 times weekly. Aug, Body mass index [BMI ] 50.0-59.9, adult (ICD-10 - Z68.43) Aug, Screening mammogram for breast cancer (ICD-10 - Z12.31) Instructed patient on monthly SBE and yearly mammograms. [facility] Other 09-15-2023 Evaluation note* Encounter Date Diagnosis Assessment Notes Treatment Notes Treatment Clinical Notes May, Strain of neck muscle, initial encounter (ICD-10 - S16.1XXA) Muscle strain home care material was printed Drink plenty fluids, get plenty of rest. Take the prednisone as prescribed until gone. Continue to take your Zanaflex and use your TENS unit for comfort. Take Tylenol as needed for pain. Follow-up with your family physician if no improvement by Monday. May, Strain of thoracic region, initial encounter (ICD-10 - S29.019A) [facility] Other 08-08-2023 Evaluation note* Encounter Date Diagnosis Assessment Notes Treatment Notes Treatment Clinical Notes Apr, Sharmin-menopausal (ICD-10 - N95.1) Recommend scheduling appt w/ Car Audio Installer. Apr, Primary hypertension (ICD-10 - I10) This patient is instructed to consume a healthy, low-fat, low-salt diet. They are also encouraged to continue exercise to achieve/maintain a normal BMI. Apr, Current moderate episode of major depressive disorder without prior episode (ICD-10 - F32.1) Healthy diet, exercise and consistent sleep routine. Instructed to schedule counseling session. Instructed to seek care from ER for worsening mood, suicidal ideations. Call office w/ any concerns/questions Initiate SSRI, aware that it will take 4-6wks to reach maximum benefit Apr, REBA (obstructive sleep apnea) (ICD-10 - G47.33) AHI 104 w/ Psat 68%, BiPAP , full facial mask This patient is aware of the benefits associated with REBA: With continued use, the patient reduces the risk for NV, CVA, HTN, cardiac dysrhythmias and sudden cardiac deaths.The patient is also aware of the association between REBA and morning headaches, daytime somnolence, fatigue and obesity, which also has been improved with continued use.The patient is compliant with treatment, wearing the equipment every night for greater than 4 hours.The patient is instructed to continue use of the CPAP for REBA treatment. [facility] Other 06-20-2023 Evaluation note* Encounter Date Diagnosis Assessment Notes Treatment Notes Treatment Clinical Notes Feb, Seborrheic dermatitis of scalp (ICD-10 - L21.9) Keep clean, avoid scratching Stop using Mupirocin Initiate topical steroid ointment Feb, Primary hypertension (ICD-10 - I10) This patient is instructed to consume a healthy, low-fat, low-salt diet. They are also encouraged to continue exercise to achieve/maintain a normal BMI. [facility] Other 05-11-2023 Evaluation note* Encounter Date Diagnosis Assessment Notes Treatment Notes Treatment Clinical Notes January, Type 2 diabetes mellitus with hyperglycemia, without long-term current use of insulin (ICD-10 - E11.65) [facility] Other 05-08-2023 Evaluation note* Encounter Date Diagnosis Assessment Notes Treatment Notes Treatment Clinical Notes January, Type 2 diabetes mellitus with hyperglycemia, without long-term current use of insulin (ICD-10 - E11.65) This patient is following a comprehensive diabetic treatment plan. They are checking their feet daily for calluses and nonhealing ulcers. They are being seen for yearly dilated eye examinations. Goals: SBP less than 130, LDL less than 100, FBS less than 140, AC and A1C less than 7%. They are checking their BS daily, will which are reviewed at the office visit. A1C: [ ] Microalbumin: [ ] Eye exam: [ ] Foot exam: [ ] Add SGLT-2 for cardiac and renal benefits and to lower A1C < 7% January, Primary hypertension (ICD-10 - I10) This patient is instructed to consume a healthy, low-fat, low-salt diet. They are also encouraged to continue exercise to achieve/maintain a normal BMI. INstructed to monitor at home w/ goal < 135/85 and update office in couple weeks January, REBA (obstructive sle ep apnea) (ICD-10 - G47.33) AHI 104 w/ Psat 68%, BiPAP , full facial mask This patient is aware of the benefits associated with REBA: With continued use, the patient reduces the risk for NV, CVA, HTN, cardiac dysrhythmias and sudden cardiac deaths.The patient is also aware of the association between REBA and morning headaches, daytime somnolence, fatigue and obesity, which also has been improved with continued use.The patient is compliant with treatment, wearing the equipment every night for greater than 4 hours.The patient is instructed to continue use of the CPAP for REBA treatment. January, Morbid obesity (ICD- 10 - E66.01) This patient has been instructed on a low-fat, high-fiber diet. They are instructed to reduce calories, portion sizes and snacks. It is recommended that they exercise for 30 minutes, 3-5 times weekly. January, Prolactinoma (ICD-10 - D35.2) Stable, denies headaches or visual defects. January, Hyperprolactinemia (ICD-10 - E22.1) [facility] Other 05-03-2023 Evaluation note* Encounter Date Diagnosis Assessment Notes Treatment Notes Treatment Clinical Notes January, REBA (obstructive sleep apnea) (ICD-10 - G47.33) AHI 104 w/ Psat 68%, BiPAP , full facial mask [facility] Other 05-03-2023 Evaluation note* Encounter Date Diagnosis Assessment Notes Treatment Notes Treatment Clinical Notes January, Right hand pain (ICD-10 - M79.641) January, Sprain of right wrist, initial encounter (ICD-10 - S63.501A) Wrist sprain home care material was printed Drink plenty fluids, get plenty of rest. Wear the Brennan wrap for comfort and compression. Take Tylenol or Motrin as needed for aches pains or fevers. Ice and elevate your wrist 2-3 times a day. Follow-up with your family physician if no improvement in 2 to 3 days [facility] Other 04-25-2023 Evaluation note* Encounter Date Diagnosis Assessment Notes Treatment Notes Treatment Clinical Notes Dec, Type 2 diabetes mellitus with hyperglycemia, without long-term current use of insulin (ICD-10 - E11.65) Dec, Primary hypertension (ICD-10 - I10) Dec, Wellness examination (ICD-10 - Z00.00) [facility] Other 03-30-2023 NoteCONSULTATION CONSULTATION DATE: 12/08/2022 TO: Kelechi Galvan D.O. HISTORY: Patient returns today complaining of 5-7/10 to her neck and shoulder pain, worse on the right than the left side, described as sharp pain, increased with activity such as cervical extension, lifting maneuvers, pushing/pulling maneuvers. She feels most comfortable in a semi-recumbent position. She denies any change in bowel or bladder habits or new sensorimotor changes in her upper extremities. EXAM: Notable for the patient having no clinical radiculopathy or myelopathy involving the upper extremities. Patient did have moderate pain with cervical facet loading maneuvers, including bilaterally worse on the right and the left side. In the past, she reports that she was worse on the left than the right side to me. However, on today's visit, she reports the right side is more painful than the left side. She had no appreciable Spurling's sign on today's visit. She had a fair amount of myofascial spasm involving the cervical paravertebral muscles, worse on the right than the left side. IMPRESSION: The patient appears to have chronic pain secondary to cervical spondylosis with facet loading pain clinically on the right side. Appears to be most severe at the C6-C7 level. This could be also affecting the C5-6 or C7- T1 levels. RECOMMENDATIONS: I recommend she increase the Zanaflex 4 mg pills, one-quarter pill in the morning and afternoon, and one pill at bedtime. To continue with physical therapy. I think she is doing fairly well with her change in medication from the last visit. I will see her back in the office in three months' time or sooner if needed. I recommend no further interventions at this point for her residual pain symptoms.[id number]* Encounter Date Diagnosis Assessment Notes Treatment Notes Treatment Clinical Notes Nov, REBA (obstructive sleep apnea) (ICD-10 - G47.33) AHI 101 w/ Psat 79% [facility] Other 03-15-2023 Evaluation note* Encounter Date Diagnosis Assessment Notes Treatment Notes Treatment Clinical Notes Nov, REBA (obstructive sleep apnea) (ICD-10 - G47.33) AHI 104 w/ Psat 68% [facility] Other 02-23-2023 NotePAIN MANAGEMENT CONSULTATION CONSULTATION DATE: 11/03/2022 TO: Dr. Galvan CHIEF COMPLAINT: Bilateral neck pain, worse on the left than the right side. HISTORY OF PRESENT ILLNESS: She reports the pain as being 5-7/10 pain, sharp in character. It increases with activities such as cervical extension, lifting maneuvers, pushing/pulling maneuvers. She feels most comfortable with semi-recumbent position. She denied any change in bowel and bladder habits or new sensorimotor changes in her upper extremities. EXAM: Notable for the patient having non-focal sensorimotor exam of her upper extremities. Deep tendon reflexes are symmetrical. She has negative Spurling's sign. No sign consistent with myelopathy involving the upper extremities. She did have pain with cervical facet loading maneuvers occurring bilaterally worse on the left than the right side from approximately C4-5 to C5- 6, with associated myofascial spasm dysfunction of the cervical paravertebral muscle, mainly the cervical splenius capitis. She had nothing to suggest rotator cuff dysfunction or impingement type syndrome. IMPRESSION: Patient has chronic pain cervical spondylosis with clinically at C4-5, C5-6, occurring bilaterally, worse on the left than the right side. RECOMMENDATIONS: I have recommended she undergo cervical spine films, PA and lateral views; physical therapy. Discontinue Flexeril secondary to ineffectiveness. I have asked her to trial increasing the Zanaflex as tolerated, 4 mg pill, half a pill to one pill up to b.i.d. as tolerated. Depending on her response to physical therapy, may consider proceeding with a diagnostic bilateral C4-5, C5-6 cervical facet injection or medial branch block at C4, 5 and 6 bilaterally. We will see the patient back in the office in approximately four weeks' time or sooner if needed.[facility] 11-03-2022 NotePAIN MANAGEMENT CONSULTATION CONSULTATION DATE: 11/03/2022 TO: Dr. Cobian CHIEF COMPLAINT: Severe mid lumbar, upper lumbar pain. HISTORY OF PRESENT ILLNESS: For list of the past medical/surgical history questionnaire is available upon request. He reports having the pain since September of this year. He reports the pain occurred spontaneously until November 03, at which point he sustained a fall. MRI was procured and T12 compression fracture was noted. Since that time, he reports the pain is rated at 5-7/10 pain, sharp in character. It seems to be increased mainly with lifting maneuvers and performing transitioning maneuvers. Denies any changes in bowel and habits or new sensorimotor changes in the lower extremities. EXAM: His examination is notable for the patient having no clinical sign consistent with radiculopathy or myelopathy involving his lower extremities. The patient did have percussion tenderness overlying the T12 spinous processes, significant myofascial spasm along the lumbar paravertebral muscles occurring bilaterally. IMPRESSION: Patient with pain secondary to T12 compression fracture. At this patient, he reports that he would like to avoid undergoing kyphoplasty at this time. RECOMMENDATIONS: At this point, I have recommended the trial of baclofen 10 mg pills with half a pill to one pill t.i.d. I have given him a prescription for diclofenac sodium 50 mg b.i.d., will increase as tolerated, and may consider proceeding with a T12-L1 epidural injection, pending his response with change of medication. He is to follow up with our office by telephone in one week's time to update us on his response to change in medication.[facility] 10-18-2022 Evaluation note* Encounter Date Diagnosis Assessment Notes Treatment Notes Treatment Clinical Notes Oct, Type 2 diabetes mellitus with hyperglycemia, without long-term current use of insulin (ICD-10 - E11.65) This patient is following a comprehensive diabetic treatment plan. They are checking their feet daily for calluses and nonhealing ulcers. They are being seen for yearly dilated eye examinations. Goals: SBP less than 130, LDL less than 100, FBS less than 140, AC and A1C less than 7%. They are checking their BS daily, will which are reviewed at the office visit. A1C: due Oct, Primary hypertension (ICD-10 - I10) This patient is instructed to consume a healthy, low-fat, low-salt diet. They are also encouraged to continue exercise to achieve/maintain a normal BMI. Oct, Morbid obesity (ICD-10 - E66.01) This patient has been instructed on a low-fat, high-fiber diet. They are instructed to reduce calories, portion sizes and snacks. It is recommended that they exercise for 30 minutes, 3-5 times weekly. Oct, Suspected sleep apnea (ICD-10 - R29.818) Referral for sleep study [facility] Other 07-28-2022 NoteCONSULTATION CONSULTATION DATE: 04/07/2022 HISTORY OF PRESENT ILLNESS: This is a pleasant, 46-year-old female who is returning to the clinic for a three month follow up for her chronic mid and lower back pain. She was last seen on 01/06/2022 which, at that time, she received a right lumbar trigger point injection, which she reports was very helpful. She reports no pain today while at rest. Throughout the day, as her activity increases, her pain will go to a 5/10. She has had successful lower lumbar RFAs in the past, and the patient is hoping, in the future, when her work schedule allows, that she can have her mid thoracic area worked on. She is reporting a new radicular pain pattern to her left upper extremity. Fourth and fifth digits will occasionally go numb with adduction of her arm. This has been going for approximately two months. Patient states she does sleep with her arm under her pillow and thinks this could be an aggravating factor. Activities that aggravate her back pain are evening hours, lifting, stairs, bending and increased activity. She does use ice periodically, which she feels is beneficial. Her PCP has her on Flexeril 10 mg daily and Zanaflex 4 mg at bedtime. Patient's REVIEW OF SYSTEMS / PAST MEDICAL HISTORY / ALLERGIES and IMAGES have been reviewed and they are noted on the chart. PHYSICAL EXAM: VITAL SIGNS: Blood pressure 141/69, heart rate is 84. Temperature is 96.4. She is 5'5 and weighs 144.7 kg. GENERAL APPEARANCE: Pleasant, appropriate, in no acute distress. FOCUSED EXAM - BACK: Reproduction of patient's pain symptomatology is spinal axial back pain to compression along T5, T6 and T7, T8, which is non-radiating. Range of motion is slightly guarded in lateral rotation and flexion/extension. Liang's point non-tender bilaterally. NECK: Range of motion is function in lateral rotation and flexion/extension. Minor pain reproduced to compression along C6, C7, T1 facets to the left. Reproduces hypoesthesia to left upper extremity. MUSCULOSKELETAL: Motor is intact, upper and lower extremities, 4/5. NEUROLOGICAL: Patchy hypoesthesia noted along C8 dermatome to the left upper arm, into the fingers with adduction. +1 brachioradialis reflex to the left. IMPRESSION: Cervical neuritis, thoracic spondylosis and thoracic pain. PLAN: Patient currently takes naproxen on a p.r.n. basis. She is encouraged to take one a day to manage the inflammation more readily. I did encourage her to do extension exercises daily in addition to the heat rub. Vitamin and nutrition importance was stressed. At this point, we will set an appointment for six months' time, and patient was instructed to call the clinic sooner if her work schedule allows for her to receive thoracic MBBs. Patient states understanding and all questions answered.[facility] [id number] History general Narrative - Reported* Type Description Date Medical History hypertension Medical History back pain Medical History degenerative disc disease Medical History Prolactinoma Medical History asthma Surgical History C section 05/31/2011 Surgical History IVF 12/01/2008 Surgical History hysterectomy laps assisted - 007 Surgical History right foot sx (planter) Hospitalization History see above Hospitalization History blood transfusion 09/2014 [facility] Other Evaluation noteNo InformationNort HeadCase [employer] Other Evaluation noteNo assessment information available [facility] [place] Work Phone: History general Narrative - Reported* Type Description Date Medical History hypertension Medical History back pain Medical History degenerative disc disease Medical History Prolactinoma Medical History asthma Medical History REBA (obstructive sleep apnea) Surgical History C section 05/31/2011 Surgical History IVF 12/01/2008 Surgical History hysterectomy laps assisted - 007 Surgical History right foot sx (planter) Hospitalization History see above Hospitalization History blood transfusion 09/2014 [facility] Other Summary Purpose Family History No Family History Records FoundNo Family History Records Found Advance Directives Advance Directive Response Recorded Date/ Time Advance Directives No June 28, 2017 2:45pm Additional Source Comments REASON FOR VISIT (unrecogniz ed section and content) sleep study4 MONTH FOLLOW UP BS resultsNo InformationNo InformationlabsNo Informationright side pinky/ring finger hurts & right elbow3 month Follow uprefillrash on scalp spreadingHormones/ Thoughts- [phone] in neck and upper backWELLNESSNo Informationlab results INFORMATION SOURCE (unrecogn ized section and content) DATE CREATED AUTHOR 01/11/2023 [facility] DATE CREATED AUTHOR AUTHOR'S ORGANIZ ATION 01/12/2023 [facility] Care Teams (unrecognized sec tion and content) Team Status: Inactive Member Role Status Dates TRINI Lenz Attending Provider Active Goals (unrecognized section and content) Goals may be documented in a n alternate section FOR RECORDS PERTAINING TO PATIENTS WHO ARE OR HAVE BEEN ENROLLED IN A CHEMICAL DEPENDENCY/SUBSTANCEABUSE PROGRAM, SOME INFORMATION MAY BE OMITTED. This clinical summary was aggregated from multiple sources. Caution should be exercised in using it in the provision of clinical care. This summary normalizes information from multiple sources, and as a consequence, information in this document may materially change the coding, format and clinical context of patient data. In addition, data may be omitted in some cases. CLINICAL DECISIONS SHOULD BE BASED ON THE PRIMARY CLINICAL RECORDS. [facility] provides no warranty or guarantee of the accuracy or completeness of information in this document.
--- NOTE | 2023-09-07 14:41 | MR_ITS ---
The [address] [address] Patient Name: ELISA SANTOS MRN: [id number] date: 1975 Sex: F Assigned Patient Location: MRI Current Patient Location: MRI Accession/Order Number: [id number] Exam Date: 09/07/2023 14:50 Report Date: 09/07/2023 16:00 At the request of: PALOMO TRAN Procedure: MR head/brain wo/w con EXAM: MRI of the brain without and with IV contrast utilizing IV gadolinium contrast. Pituitary sequences were performed. REASON FOR EXAM: hyperprolactinemia E22.1 COMPARISON: No images available for comparison. Prior report from 2013 is available for review. FINDINGS: 8 x 4 x 6 mm hypoenhancing inferior/posterior right paramedian pituitary lesion. No other intracranial masses or abnormal enhancement. No abnormal restricted diffusion or evidence of evolving infarct. No evidence of intracranial hemorrhage. No hydrocephalus. No other significant abnormal parenchymal signal abnormalities. Paranasal sinuses and mastoid air cells are clear. Remainder unremarkable. 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 Electronically authenticated by: RENE BONILLA Date: 09/07/2023 16:00
== END 2023-09-07 14:34 | disposition home or self-care (01) ==
LOC: MRI 14:34
PROVIDERS: PCP Internal Medicine; Visit Provider Internal Medicine
DX: E22.1 Hyperprolactinemia (principal)
CPT/HCPCS: 70553; A9575

== ENCOUNTER 2023-09-19 06:44 | Day surgery (SDC) | payer OTHER, SELFPAY ==
--- OUTSIDE RECORDS SUMMARY | 2023-09-19 06:47 | XMS_ITS | CCD ---
Author Name Unknown Address [address] [place] [address] Organization [facility] Care Team Providers Care Bowling Ball Engraver Name Role Phone Kelechi Galvan Unavailable COLE, [...] Care Unavailable COLE, DR CULVER Admitting Unavailable NORTH APOLLO, DR ANGELA Orellana Consulting Unavailable COLE, DR CULVER Consulting Unavailable COLE, DR CULVER Attending Unavailable BALL, DR CULVER Admitting Unavailable BALL, DR CULVER Primary Care Unavailable COLE, DR CULVER Primary Care Unavailable LAKSHMIPATHY ., ERINN Admitting Bebe vailable JASONY ., NARMICAHATH Attending Bebe vailable Angélica Swann Unavailable Angélica Swann Attending Unavailable Angélica Swann Admitting Unavailable TRINI Swann Attending Provider [phone] Allergies Allergy Classification Reported Allergen(s) Allergy Type Date of Onset Reaction(s) Facility (13 sources) Penicillin G Drug Allergy pt doesn't remember [facility] Other (2 sources) Penicillins Drug allergy (disorder) 3 [facility] Repository (6 sources) Doxycycline Drug Allergy Unknown [facility] Other (2 sources) Penicillin Drug Allergy Unknown [facility] Other (6 sources) Penicillin G Benzathine & Proc Drug allergy 7 Unknown [facility] Other (2 sources) patient allergy list reviewed by nurse or physicia Propensity to adverse reactions 4 Comment:Done [facility] Other (2 sources) Allergies Reconciled Propensity to adverse reactions Unknown [facility] Other Medications Current Medications Medication Drug Class(es) Dates Sig (Normalized) Sig (Original) atenolol 50 mg oral tablet (20 sources) beta-Adrenergic Selin take 1 tablet by mouth once daily Atenolol 50 MG TAKE 1 TABLET BY MOUTH EVERY DAY Active Atenolol Not-Anuj ing/PRN Atenolol Not-Anuj ing Atenolol Active baclofen 10 mg oral tablet (4 sources) gamma-Aminobutyric Acid-ergic Agonist take 1 tablet by mouth every twelve hours Baclofen 10 MG 1 tablet as needed Orally Twice a day Active cetirizine hydrochloride 10 mg oral tablet (4 sources) Histamine-1 Receptor Antagonist take 1 tablet by mouth once daily Cetirizine HCl 10 MG TAKE 1 TABLET BY MOUTH EVERY DAY for 90 Active dapagliflozin 5 mg oral tablet (9 sources) Sodium-Glucose Cotransporter 2 Inhibitor Start: 2022 take 1 tablet by mouth every twenty-four hours Farxiga 5 MG 1 tablet Orally Once a day January, Active 0.5 ML dulaglutide 9 MG/ML Auto-Injector [Trulicity] (17 sources) GLP-1 Receptor Agonist Start: 2022 inject [...] WEEKLY Active escitalopram 10 mg oral tablet (6 sources) Serotonin Reuptake Inhibitor Start: 04-18-2023 take 1 tablet by mouth every twenty-four hours Lexapro 10 MG 1 tablet Orally Once a day Apr, Active furosemide 20 mg oral tablet (17 sources) Loop Diuretic take 1 tablet by [...] e metFORMIN hydrochloride 1000 mg oral tablet (5 sources) Biguanide Start: 04-19-2023 take 1 tablet by mouth every twelve hours metFORMIN HCl 1000 MG 1 tablet Orally twice a day Apr, Active OneTouch Ultra - (5 sources) OneTouch Ultra - USE 1 STRIP TO CHECK HOME BLOOD SUGAR for 25 Active phentermine hydrochloride 37.5 mg oral tablet (4 sources) Sympathomimetic Amine Anorectic Start: 08-22-2023 take 1 tablet by mouth once daily before breakfast Adipex-P 37.5 MG 1 tablet before breakfast Orally Once a day for 30 days Rx #1 Aug, Active potassium 99 mg extended release oral tablet (5 sources) take 1 tablet by mouth once daily Potassium 99 MG 1 tablet Orally Once a day Active Potassium Active tiZANidine 4 mg oral tablet (17 sources) Central alpha-2 Adrenergic Agonist take 1 [...] Sig (Original) cabergoline 0.5 mg oral tablet (17 sources) Ergot Derivative take 1 tablet by mouth two times weekly as needed Cabergoline 0.5 MG 1 tablet Orally 2 times a week Not-Taking/PRN Dexamethasone / Neomycin / Polymyxin B (17 sources) Aminoglycoside Antibacterial, Polymyxin-class Antibacterial, Corticosteroid Start: 09-13-2020 take 2 drop(s) into the eye(s) three times daily as needed Maxitrol 3.5-53213-0.1 2 drops into affected eye Ophthalmic Three times a day for 7 days Sep, Not-Taking/PRN Start: 09-13-2020 take 2 drop(s) into the eye(s) three times daily Maxitrol 3.5-76172-5.1 2 drops into affected eye Ophthalmic Three times a day for 7 days Sep, Not-Taking Start: 09-13-2020 take 2 drop(s) into the eye(s) three times daily Maxitrol 3.5-44299-7.1 2 drops into affected eye Ophthalmic Three times a day for 7 days Sep, Active Ketorolac (17 sources) Nonsteroidal Anti-inflammatory Drug, Cyclooxygenase Inhibitor Start: 06-22-2019 Toradol per 15 mg Jun, 30 mg methylPREDNISolone (17 sources) Corticosteroid Start: 03-09-2015 Depo-Medrol 80 mg Feb, 80 mg predniSONE 20 mg oral tablet (5 sources) Start: 05-26-2023 take 1 tablet by mouth every twelve hours predniSONE 20 MG 1 tablet Orally bid for 5 day(s) May, Not-Taking/PRN Toradol 30 mg/ml (5 sources) Start: 05-26-2023 Toradol 30 mg/ml May, [...] left knee] Onset: 5 Chronic Menopausal disorders (7 sources) Perimenopausal state; 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: [Menopausal and female climacteric states] Chronic Menstrual disorders (8 sources) Irregular periods; 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: [Irregular menstrual cycle] Onset: 7 Chronic Mood disorders (10 sources) Moderate major depression, single episode; 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: [Major depressive disorder, single episode, moderate] Chronic Mycoses (2 sources) Candidiasis; 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: [Candidiasis, unspecified] Episodic Nonmalignant breast conditions (17 sources) Large breast; 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: [Macromastia] Onset: 6 Episodic Other aftercare (2 sources) High risk drug monitoring status; 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: [skilled nursing (current) use of opiate analgesic] Episodic Other aftercare (2 sources) History and physical examination, follow-up; 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: [Encounter for follow-up examination after completed treatment for conditions other than malignant neoplasm] Episodic Other and unspecified benign neoplasm (17 sources) Prolactinoma; 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] Episodic Other and unspecified benign neoplasm (2 sources) Benign neoplasm of pituitary gland Episodic Other [...] (peripheral)] Onset: 7 Episodic Other endocrine disorders (17 sources) Hyperprolactinemia; 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: [Hyperprolactinemia] Chronic Other endocrine [...] 3 Episodic Other inflammatory condition of skin (7 sources) Seborrheic dermatitis of scalp; 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: [Seborrheic [...] Chronic Other nutritional; endocrine; and metabolic disorders (4 sources) Severe obesity; 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: [Morbid (severe) obesity [...] of unspecified site] Episodic Residual codes; unclassified (16 sources) Obstructive sleep apnea syndrome; 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: [Obstructive [...] 3V*on 023 XR hand RT min 3V* [facility] Main [place] [id number] XRay Report Signed Patient: Jing Gray MR#: [id number] 1 : 1975 Acct:[id number] Age/Sex: 47 / F ADM Date: 01/11/23 Loc: XDUCLY Room: Type: [facility] Attending Dr: Angélica FELIZ Copies to: TRINI Alvarado Ordering Provider: TRINI Alvarado Date of Service: [...] Blake Marino M.D.01/11/2023 6:08 PM Dictation Location: [place] [address] Transcribed By: [facility] 01/11/231807 Dictated By: Blake Marino DO 01/11/231806 Signed By: 01/11/23 180 Normal [facility] XR hand RT min 3V* [facility] [employer] Other XR hand RT min 3V* [facility] [employer] Other XR hand RT min 3V* [address] [place] [address] [employer] Other XR hand RT min 3V* [facility] [employer] Other XR hand RT min 3V* XRay Report [employer] / [employer] [facility] [employer] Other XR hand RT min 3V* Signed [facility] Other XR hand RT min 3V* Patient: Jing Gray MR#: [id number] [place] [employer] Other XR hand RT min 3V* 1 [facility] Other XR hand RT min 3V* : 1975 Acct:[id number] [place] [employer] Other XR hand RT min 3V* Age/Sex: 47 / F ADM Date: 01/11/23 [facility] Other XR hand RT min 3V* Loc: XDUCLY Room: Type: REG CLI [facility] Other XR hand RT min 3V* Attending Dr: Angélica FELIZ [facility] Other XR hand RT min 3V* Copies to: TRINI Alvarado [facility] Other XR hand RT min 3V* Ordering Provider: TRIIN Alvarado [facility] Other XR hand RT min 3V* Date of Service: 01/11/23 [facility] Other XR hand RT min 3V* XR/XR hand RT min 3V*: RIGHT HAND INJURY [facility] Other XR hand RT min 3V* 3 views right hand plain film [facility] Other XR hand RT min 3V* COMPARISON: None [facility] Other XR hand RT min 3V* HISTORY: Fourth and fifth metacarpal injury [facility] Other XR hand RT min 3V* ACUTE FINDINGS: None [facility] Other XR hand RT min 3V* DEGENERATIVE CHANGE: Unremarkable [facility] Other XR hand RT min 3V* SOFT TISSUE FINDINGS: Unremarkable [facility] Other XR hand RT min 3V* JOINT EFFUSION: None [facility] Other XR hand RT min 3V* POSTOP CHANGES: None [facility] Other XR hand RT min 3V* BONY MINERALIZATION: Adequate [facility] Other XR hand RT min 3V* XR/XR hand RT min 3V* [facility] Other XR hand RT min 3V* IMPRESSION: No acute findings [facility] Other XR hand RT min 3V* Impression dictated by: Blake Marino M.D.01/11/2023 6:08 PM [place] [employer] Other XR hand RT min 3V* Dictation Location: [facility] [employer] Other XR hand RT min 3V* Transcribed By: [facility] 01/11/231807 [facility] Other XR hand RT min 3V* Dictated By: Blake Marino DO 01/11/231806 [facility] Other XR hand RT min 3V* Signed By: [facility] Other XR hand RT min 3V* 01/11/23 180 [facility] [employer] Other PROLACTINon 01-06-2023 Prolactin 34.5 ng/mL Critically high 4.8-23.3 [facility] Comment on above: Performed By: #### P ROLAC #### [facility] [address] [place] [address] [address] Digna Thomas CBC AUTO DIFFon 01-05-2023 BASO # 0.1 103/ul Normal 0.0-0.1 [facility] Comment on above: Performed By: #### C BC ####[facility] [address] [place] [id number] Thomas Basophils/100 WBC (Bld) 0.8 % Normal 0.2-2.0 [facility] Comment on above: Performed By: #### C BC ####[facility] [address] [place] [id number] Thomas EO # 0.5 103/ul Normal 0.0-0.7 [facility] Comment on above: Performed By: #### C BC ####[facility] [address] [place] [id number]. Digna Thomas Eosinophils/100 WBC (Bld) 5.0 % Normal 0.9-7.0 [facility] Comment on above: Performed By: #### C BC ####[facility] [address] [place] [address]Dr. Digna Thomas Erythrocyte distribution width (RBC) [Ratio] 13.0 % Normal 11.0-15.0 [facility] Comment on above: Performed By: #### C BC ####[facility] [address] [place], [place] [address]Dr. Digna Thomas Hematocrit (Bld) [Volume fraction] 44.6 % Normal 36.0-48.0 [facility] Comment on above: Performed By: #### C BC ####[facility] [address] [place], [place] [address]Dr. Digna Thomas Hemoglobin (Bld) [Mass/Vol] 14.4 g/dL Normal 12.0-16.0 [facility] Comment on above: Performed By: #### C BC ####[facility] [address] [place], [place] [address]Dr. Digna Thomas IG # 0.05 10e3/ul Critically high 0.00-0.03 [facility] Comment on above: Performed By: #### C BC ####[facility] [address] [place] [address]Dr. Digna Thomas IG % 0.5 % Normal 0.0-0.5 [facility] Comment on above: Performed By: #### C BC ####[facility] [address] [place], [place] [address]Dr. Digna Thomas LYMPH # 2.3 103/ul Normal 1.2-3.8 [facility] Comment on above: Performed By: #### C BC ####[facility] [address] [place], [place] [address]Dr. Digna Thomas Lymphocytes/100 WBC (Bld) 23.0 % Normal 20.5-60.0 [facility] Comment on above: Performed By: #### C BC ####[facility] [address] [place] [id number]. Digna Thomas MANUAL DIFF REQ NO Normal [facility] Comment on above: Performed By: #### C BC ####[facility] [address] [place] [id number]. Digna Thomsa MCH (RBC) [Entitic mass] 28.3 pg Normal 26.7-34.0 [facility] Comment on above: Performed By: #### C BC ####[facility] [address] [place], [place] [address]Dr. Digna Thomas MCHC (RBC) [Mass/Vol] 32.3 g/dL Normal 29.9-35.2 [facility] Comment on above: Performed By: #### C BC ####[facility] [address] [place], [place] [address]Dr. Digna Thomas MCV (RBC) [Entitic vol] 87.8 fL Normal 81.0-99.0 [facility] Comment on above: Performed By: #### C BC ####[facility] [address] [place], [place] [address]Dr. Digna Thomas MONO # 0.8 103/ul Normal 0.3-0.8 [facility] Comment on above: Performed By: #### C BC ####[facility] [address] [place], [place] [address]Dr. Digna William Monocytes/100 WBC (Bld) 7.9 % Normal 1.7-12.0 [facility] Comment on above: Performed By: #### C BC ####[facility] [address] [place], [place] [address]Dr. Digna Thomas NEUT # 6.3 103/ul Normal 1.4-6.5 [facility] Comment on above: Performed By: #### C BC ####[facility] [address] [place], [place] [address]Dr. Digna Thomas Neutrophils/100 WBC (Bld) 62.8 % Normal 43.0-75.0 [facility] Comment on above: Performed By: #### C BC ####[facility] [address] [place], [place] [address]Tw. Digna Thomas Platelet mean volume (Bld) [Entitic vol] 9.9 fL Normal 9.5-13.5 [facility] Comment on above: Performed By: #### C BC ####[facility] [address] [place], [place] [address]Tg. Digna Thomas PLT 223 103/ul Normal 150-450 [facility] Comment on above: Performed By: #### C BC ####[facility] [address] [place], [place] [address]Qt. Digna Thomas RBC 5.08 106/ul Normal 4.20-5.40 [facility] Comment on above: Performed By: #### C BC ####[facility] [address] [place], [place] [address]Bs. Digna Thomas WBC 10.0 103/ul Normal 4.0-11.0 [facility] Comment on above: Performed By: #### C BC ####[facility] [address] [place], [place] [address]AtNile Thomas LIPID PROFILEon 01-05-2023 CHOL-HDL RATIO NORM SEE BELOW Normal [facility] Comment on above: Result Comment: 3.3 - 4.4 LOW RISK 4.4 - 7.1 AVERAGE RISK 7.1 - 11.0 MODERATE RISK >11.0 HIGH RISK Performed By: #### B MP, TSH, LIPID #### [facility] [address] [place] [address] [address] Digna Thomas Cholesterol [Mass/Vol] 179 mg/dL Normal <=200 [facility] Comment on above: Performed By: #### B MP, TSH, LIPID #### [facility] [address] [place] [id number] Digna Thomas Cholesterol in HDL [Mass/Vol] 55 mg/dL Normal 40-60 [facility] Comment on above: Performed By: #### B MP, TSH, LIPID #### [facility] [address] [place] [id number] Digna Thomas Cholesterol in LDL [Mass/Vol] 103.8 mg/dL Normal [facility] Comment on above: Performed By: #### B MP, TSH, LIPID #### [facility] [address] [place] [address] [address] Digna Thomas Cholesterol.total/Ch olesterol in HDL [Mass ratio] 3.3 {ratio} Normal [facility] Comment on above: Performed By: #### B MP, TSH, LIPID #### [facility] [address] [place] [address] [address] Digna Thomas HDL NORMAL > or = 60 mg/dl - LOW CARDIOVASCULAR RISK <40 mg/dl - HIGH CARDIOVASCULAR RISK Normal [facility] Comment on above: Performed By: #### B MP, TSH, LIPID #### [facility] [address] [place] [address] [address] Digna Thomas LDL CALC NORMAL SEE BELOW Normal [facility] Comment on above: Result Comment: <100 mg/dl OPTIMAL 100 - 129 mg/dl NEAR OR ABOVE OPTIMAL 130 - 159 mg/dl BORDERLINE HIGH 160 - 189 mg/dl HIGH >190 mg/dl VERY HIGH Performed By: #### B MP, TSH, LIPID #### [facility] [address] [place] [address] [address] Digna Thomas Triglyceride [Mass/Vol] 101 mg/dL Normal <=150 [facility] Comment on above: Performed By: #### B MP, TSH, LIPID #### [facility] [address] [place] [address] Dr. Digna Thomas VLDL CALC 20.2 mg/dL Normal [facility] Comment on above: Performed By: #### B MP, TSH, LIPID #### [facility] [address] [place] [address] [address] Digna Thomas PROF CHEM 8 (BAS METB)on Anion gap [Moles/Vol] 13.3 mmol/L Normal [facility] Comment on above: Performed By: #### B MP, TSH, LIPID #### [facility] [address] [place] [address] [address] Digna Thomas Calcium [Mass/Vol] 9.4 mg/dL Normal 8.5-10.1 [facility] Comment on above: Performed By: #### B MP, TSH, LIPID #### [facility] [address] [place] [address] [address] Digna Thomas Chloride [Moles/Vol] 104 mmol/L Normal 98-107 [facility] Comment on above: Performed By: #### B MP, TSH, LIPID #### [facility] [address] [place] [address] [address] Digna Thomas CO2 [Moles/Vol] 27.1 mmol/L Normal 21.0-32.0 [facility] Comment on above: Performed By: #### B MP, TSH, LIPID #### [facility] [address] [place] [address] Dr. Digna Thomas Creatinine [Mass/Vol] 0.71 mg/dL Normal 0.55-1.02 [facility] Comment on above: Performed By: #### B MP, TSH, LIPID #### [facility] [address] [place] [address] [address] Digna Thomas EGFR-AF NICARAGUAN >60 Normal >=60 [facility] Comment on above: Performed By: #### B MP, TSH, LIPID #### [facility] [address] [place] [address] Dr. Digna Thomas EGFR-NON AF NICARAGUAN >60 Normal >=60 [facility] Comment on above: Performed By: #### B MP, TSH, LIPID #### [facility] [address] [place] [address] Dr. Digna Thomas Glucose [Mass/Vol] 163 mg/dL Critically high 74-106 [facility] Comment on above: Performed By: #### B MP, TSH, LIPID #### [facility] [address] [place] [address] [address] Digna Thomas Potassium [Moles/Vol] 4.4 mmol/L Normal 3.5-5.1 [facility] Comment on above: Performed By: #### B MP, TSH, LIPID #### [facility] [address] [place] [address] Dr. Digna Thomas Sodium [Moles/Vol] 140 mmol/L Normal 136-145 [facility] Comment on above: Performed By: #### B MP, TSH, LIPID #### [facility] [address] [place] [address] [address] Digna Thomas Urea nitrogen [Mass/Vol] 15.0 mg/dL Normal 7.0-18.0 [facility] Comment on above: Performed By: #### B MP, TSH, LIPID #### [facility] [address] [place] [address] [address] Digna Thomas Urea nitrogen/Creatinine [Mass ratio] 21.1 mg/mg Normal [facility] Comment on above: Performed By: #### B MP, TSH, LIPID #### [facility] [address] [place] [address] [address] Digna Thomas TSHon 01-05-2023 TSH 3.955 uIU/mL Critically high 0.358-3.740 [facility] Comment on above: Performed By: #### B MP, TSH, LIPID #### [facility] [address] [place] [address] [address] Digna Thomas XR CSPINE MIN 4 [...] by: FELIPE TRINH Date: 2022-11-04 08:02 Normal [facility] GLYCOHEMOGLOBIN A1Con 2022 ADA RECOMMENDATION SEE BELOW Normal [facility] Comment on above: Result Comment: ADA RECOMMENDED LIMIT 4.0 - 6.0 ADA THERAPEUTIC TARGET < 7.0 ACTION SUGGESTED > 7.0 Performed By: #### A 1C ####[facility] [address] [place] [address]Dr. Digna Thomas Glucose [Mass/Vol] 166 mg/dL Normal [facility] Comment on above: Performed By: #### A 1C ####[facility] [address] [place] [id number] Thomas HbA1c (Bld) [Mass fraction] 7.4 % Critically high 4.5-6.2 [facility] Comment on above: Performed By: #### A 1C ####[facility] [address] [place] [id number]. Digna Thomas PROLACTINon 07-12-2022 Prolactin 48.0 ng/mL Critically high 4.8-23.3 [facility] Comment on above: Performed By: #### P ROLAC #### [facility] [address] [place], [place] [address] Dr. Digna Thomas CBC AUTO DIFFon 07-11-2022 BASO # 0.1 103/ul Normal 0.0-0.1 [facility] Comment on above: Performed By: #### C BC ####[facility] [address] [place] [address]DrNile Thomas Basophils/100 WBC (Bld) 0.8 % Normal 0.2-2.0 [facility] Comment on above: Performed By: #### C BC ####[facility] [address] [place], [place] [address]DrNile Thomas EO # 0.7 103/ul Normal 0.0-0.7 [facility] Comment on above: Performed By: #### C BC ####[facility] [address] [place] [address]Dr. Digna Thomas Eosinophils/100 WBC (Bld) 5.8 % Normal 0.9-7.0 [facility] Comment on above: Performed By: #### C BC ####[facility] [address] [place], [place] [address]DrNile Thomas Erythrocyte distribution width (RBC) [Ratio] 12.7 % Normal 11.0-15.0 [facility] Comment on above: Performed By: #### C BC ####[facility] [address] [place] [address]DrNile Thomas Hematocrit (Bld) [Volume fraction] 45.4 % Normal 36.0-48.0 [facility] Comment on above: Performed By: #### C BC ####[facility] [address] [place] [address]Dr. Digna William Hemoglobin (Bld) [Mass/Vol] 15.3 g/dL Normal 12.0-16.0 [facility] Comment on above: Performed By: #### C BC ####[facility] [address] [place] [address]Dr. Anajs William IG # 0.04 10e3/ul Critically high 0.00-0.03 [facility] Comment on above: Performed By: #### C BC ####[facility] [address] [place] [address]Dr. Digna Thomas IG % 0.3 % Normal 0.0-0.5 [facility] Comment on above: Performed By: #### C BC ####[facility] [address] [place], [place] [address]Dr. Digna Thomas LYMPH # 3.3 103/ul Normal 1.2-3.8 [facility] Comment on above: Performed By: #### C BC ####[facility] [address] [place] [address]DrNile Thomas Lymphocytes/100 WBC (Bld) 28.1 % Normal 20.5-60.0 [facility] Comment on above: Performed By: #### C BC ####[facility] [address] [place] [address]Dr. Digna Thomas MANUAL DIFF REQ NO Normal [facility] Comment on above: Performed By: #### C BC ####[facility] [address] [place] [id number] Thomas MCH (RBC) [Entitic mass] 29.2 pg Normal 26.7-34.0 [facility] Comment on above: Performed By: #### C BC ####[facility] [address] [place] [id number]. Digna Thomas MCHC (RBC) [Mass/Vol] 33.7 g/dL Normal 29.9-35.2 [facility] Comment on above: Performed By: #### C BC ####[facility] [address] [place] [id number] Perezjs William MCV (RBC) [Entitic vol] 86.6 fL Normal 81.0-99.0 [facility] Comment on above: Performed By: #### C BC ####[facility] [address] [place] [id number] Thomas MONO # 0.8 103/ul Normal 0.3-0.8 [facility] Comment on above: Performed By: #### C BC ####[facility] [address] [place] [address]Dr. Digna Thomas Monocytes/100 WBC (Bld) 6.4 % Normal 1.7-12.0 [facility] Comment on above: Performed By: #### C BC ####[facility] [address] [place], [place] [address]Dr. Digna Thomas NEUT # 6.9 103/ul Critically high 1.4-6.5 [facility] Comment on above: Performed By: #### C BC ####[facility] [address] [place], [place] [address]Dr. Digna Thomas Neutrophils/100 WBC (Bld) 58.6 % Normal 43.0-75.0 [facility] Comment on above: Performed By: #### C BC ####[facility] [address] [place] [id number]. Digna Thomas Platelet mean volume (Bld) [Entitic vol] 10.0 fL Normal 9.5-13.5 [facility] Comment on above: Performed By: #### C BC ####[facility] [address]rd[address] [place] [id number]. Digna Thomas PLT 242 103/ul Normal 150-450 [facility] Comment on above: Performed By: #### C BC ####[facility] [address]qomosakt[address] [place] [id number] Thomas RBC 5.24 106/ul Normal 4.20-5.40 [facility] Comment on above: Performed By: #### C BC ####[facility] [address]qvpihpjk[address] [place] [id number]. Digna Thomas WBC 11.8 103/ul Critically high 4.0-11.0 [facility] Comment on above: Performed By: #### C BC ####[facility] [address] [place] [id number]. Digna Thomas GLYCOHEMOGLOBIN A1Con 2021 ADA RECOMMENDATION SEE BELOW Normal [facility] Comment on above: Result Comment: ADA RECOMMENDED LIMIT 4.0 - 6.0 ADA THERAPEUTIC TARGET < 7.0 ACTION SUGGESTED > 7.0 Performed By: #### A 1C ####[facility] [address] [place] [address]Dr. Digna Thomas Glucose [Mass/Vol] 183 mg/dL Normal [facility] Comment on above: Performed By: #### A 1C ####[facility] [address] [place], [place] [address]Dr. Digna Thomas HbA1c (Bld) [Mass fraction] 8.0 % Critically high 4.5-6.2 [facility] Comment on above: Performed By: #### A 1C ####[facility] [address] [place], [place] [address]Dr. Digna Thomas LIPID PROFILEon 07-11-2022 CHOL-HDL RATIO NORM SEE BELOW Normal [facility] Comment on above: Result Comment: 3.3 - 4.4 LOW RISK 4.4 - 7.1 AVERAGE RISK 7.1 - 11.0 MODERATE RISK >11.0 HIGH RISK Performed By: #### B MP, LIPID, TSH ####[facility] [address] [place] [id number]. Anajs Thomas Cholesterol [Mass/Vol] 161 mg/dL Normal <=200 [facility] Comment on above: Performed By: #### B MP, LIPID, TSH ####[facility] Otbdmtsrbx28[address] [place] [id number]. Digna Thomas Cholesterol in HDL [Mass/Vol] 51 mg/dL Normal 40-60 [facility] Comment on above: Performed By: #### B MP, LIPID, TSH ####[facility] [address] [place] [address]Dr. Digna Thomas Cholesterol in LDL [Mass/Vol] 86.2 mg/dL Normal [facility] Comment on above: Performed By: #### B MP, LIPID, TSH ####[facility] I[address]emwco[address] [place] [id number]. Digna Thomas Cholesterol.total/Ch olesterol in HDL [Mass ratio] 3.2 {ratio} Normal [facility] Comment on above: Performed By: #### B MP, LIPID, TSH ####[facility] [address]qoesr[address] [place] [address]Dr. Digna Thomas HDL NORMAL > or = 60 mg/dl - LOW CARDIOVASCULAR RISK <40 mg/dl - HIGH CARDIOVASCULAR RISK Normal [facility] Comment on above: Performed By: #### B MP, LIPID, TSH ####[facility] V[address]uvrwtbv[address] [place] [address]Dr. Digna Thomas LDL CALC NORMAL SEE BELOW Normal [facility] Comment on above: Result Comment: <100 mg/dl OPTIMAL 100 - 129 mg/dl NEAR OR ABOVE OPTIMAL 130 - 159 mg/dl BORDERLINE HIGH 160 - 189 mg/dl HIGH >190 mg/dl VERY HIGH Performed By: #### B MP, LIPID, TSH ####[facility] [address] [place] [address]Dr. Digna Thomas Triglyceride [Mass/Vol] 119 mg/dL Normal <=150 [facility] Comment on above: Performed By: #### B MP, LIPID, TSH ####[facility] Fcoqkxeina[address] [place] [id number]. Digna Thomas VLDL CALC 23.8 mg/dL Normal [facility] Comment on above: Performed By: #### B MP, LIPID, TSH ####[facility] [address] [place] [address]Dr. Digna Thomas MG MAMM SCREEN 3D JANE CADon 07-11-2022 MG MAMM SCREEN 3D JANE CAD Patient: JING GRAYNile Exam Date: 07/11/2022 : 1975 Gender:F Ordering : DR KELECHI GALVAN D.O. Admission #: [id number] Family : Order #: [id number] CLICK HERE TO VIEW EXAM RADIOLOGY REPORT [...] bladder cancer at age 51. LOCATION: [facility] BREAST COMPOSITION: Scattered areas fibroglandular density. FINDINGS: [...] Cagle MD on 07/11/2022 at 10:14 Normal [facility] MICROALBUMIN, RAND URon 10-3 mALB 10.1 mg/L Normal <=30.0 [facility] Comment on above: Performed By: #### M ALBR #### [facility] [address] [place], [place] [address] Dr. Digna Thomas PROF CHEM 8 (BAS METB)on Anion gap [Moles/Vol] 10.6 mmol/L Normal [facility] Comment on above: Performed By: #### B MP, LIPID, TSH ####[facility] [address] [place], [place] [address]LnDr. Digna Thomas Calcium [Mass/Vol] 9.3 mg/dL Normal 8.5-10.1 [facility] Comment on above: Performed By: #### B MP, LIPID, TSH ####[facility] [address] [place] [address]Dr. Digna William Chloride [Moles/Vol] 99 mmol/L Normal 98-107 [facility] Comment on above: Performed By: #### B MP, LIPID, TSH ####[facility] [address] [place] [address]Dr. Digna William CO2 [Moles/Vol] 28.3 mmol/L Normal 21.0-32.0 [facility] Comment on above: Performed By: #### B MP, LIPID, TSH ####[facility] [address] [place], [place] [address]Dr. Digna Thomas Creatinine [Mass/Vol] 0.74 mg/dL Normal 0.55-1.02 [facility] Comment on above: Performed By: #### B MP, LIPID, TSH ####[facility] [address] [place], [place] [address]Dr. Digna William EGFR-AF NICARAGUAN >60 Normal >=60 [facility] Comment on above: Performed By: #### B MP, LIPID, TSH ####[facility] [address] [place], [place] [address]Dr. Digna William EGFR-NON AF NICARAGUAN >60 Normal >=60 [facility] Comment on above: Performed By: #### B MP, LIPID, TSH ####[facility] [address]xobg[address] [place] [address]Dr. Digna William Glucose [Mass/Vol] 190 mg/dL Critically high 74-106 [facility] Comment on above: Performed By: #### B MP, LIPID, TSH ####[facility] [address] [place] [address]Dr. Digna Thomas Potassium [Moles/Vol] 3.9 mmol/L Normal 3.5-5.1 [facility] Comment on above: Performed By: #### B MP, LIPID, TSH ####[facility] [address] [place], [place] [address]Dr. Digna Thomas Sodium [Moles/Vol] 134 mmol/L Critically low 136-145 Th [facility] Comment on above: Performed By: #### B MP, LIPID, TSH ####[facility] [address] [place], [place] [address]Id. Digna Thomas Urea nitrogen [Mass/Vol] 13.0 mg/dL Normal 7.0-18.0 [facility] Comment on above: Performed By: #### B MP, LIPID, TSH ####[facility] [address] [place], [place] [address]Ld. Digna Thomas Urea nitrogen/Creatinine [Mass ratio] 17.6 mg/mg Normal [facility] Comment on above: Performed By: #### B MP, LIPID, TSH ####[facility] [address] [place], [place] [address]Ug. Digna Thomas TSHon 07-11-2022 TSH 4.084 uIU/mL Critically high 0.358-3.740 [facility] Comment on above: Performed By: #### B MP, LIPID, TSH #### [facility] [address] [place], [place] [address] Dr. Digna Thomas Vital Signs Date Time Vital Sign Value Performing Clinician Facility 08-22-2023 08:30-0500 Body height 165.1 cm Kelechi Galvan Other [facility] Other 08-22-2023 08:30-0500 Body mass index (BMI) [Ratio] 52.95 kg/m2 Kelechi Ball Other [facility] Other 08-22-2023 08:30-0500 Body weight 144.34 kg Kelechi Galvan Other [facility] Other 08-22-2023 08:30-0500 Diastolic blood pressure 75 mm[Hg] Kelechi Factery Other [facility] Other 08-22-2023 08:30-0500 Respiratory rate 12 /min Kelechi Factery Other [facility] Other 08-22-2023 08:30-0500 Systolic blood pressure 115 mm[Hg] Kelechi Ball Other [facility] Other 05-26-2023 09:40-0400 Body height 165.1 cm Angélica Hue Other [facility] Other 05-26-2023 09:40-0400 Body mass index (BMI) [Ratio] 51.88 kg/m2 Angélica Hue Other [facility] Other 05-26-2023 09:40-0400 Body temperature 98 [degF] Angélica Hue Other [facility] Other 05-26-2023 09:40-0400 Body weight 141.43 kg Angélica Hue Other [facility] Other 05-26-2023 09:40-0400 Diastolic blood pressure 68 mm[Hg] Angélica Hue Other [facility] Other 05-26-2023 09:40-0400 Respiratory rate 18 /min Angélica Hue Other [facility] Other 05-26-2023 09:40-0400 SaO2% (BldA) [Mass fraction] 96 % Angélica Hue Other [facility] Other 05-26-2023 09:40-0400 Systolic blood pressure 110 mm[Hg] Angélica Hue Other [facility] Other 02-28-2023 13:15-0400 Body height 165.1 cm Kelechi Ball Other [facility] Other 02-28-2023 13:15-0400 Body mass index (BMI) [Ratio] 52.55 kg/m2 Kelechi Ball Other [facility] Other 02-28-2023 13:15-0400 Body weight 143.25 kg Kelechi Ball Other [facility] Other 02-28-2023 13:15-0400 Diastolic blood pressure 77 mm[Hg] Kelechi Ball Other [facility] Other 02-28-2023 13:15-0400 Respiratory rate 12 /min Kelechi Ball Other [facility] Other 02-28-2023 13:15-0400 Systolic blood pressure 118 mm[Hg] Kelechi Ball Other [facility] Other 01-16-2023 12:30-0400 Body height 165.1 cm Kelechi Ball Other [facility] Other 01-16-2023 12:30-0400 Body mass index (BMI) [Ratio] 52.28 kg/m2 Kelechi Ball Other [facility] Other 01-16-2023 12:30-0400 Body weight 142.52 kg Kelechi Ball Other [facility] Other 01-16-2023 12:30-0400 Diastolic blood pressure 72 mm[Hg] Kelechi Ball Other [facility] Other 01-16-2023 12:30-0400 Respiratory rate 16 /min Kelechi Ball Other [facility] Other 01-16-2023 12:30-0400 Systolic blood pressure 147 mm[Hg] Kelechi Ball Other [facility] Other 01-11-2023 18:10-0400 Body height 165.1 cm Angélica Swann Other [facility] Other 01-11-2023 18:10-0400 Body mass index (BMI) [Ratio] 52.41 kg/m2 Angélica Hue Other [facility] Other 01-11-2023 18:10-0400 Body temperature 99.6 [degF] Angélica Swann Other [facility] Other 01-11-2023 18:10-0400 Body weight 142.88 kg Angélica Hue Other [facility] Other 01-11-2023 18:10-0400 Diastolic blood pressure 64 mm[Hg] Angélica Hue Other [facility] Other 01-11-2023 18:10-0400 Respiratory rate 20 /min Angélica Mcqueenmond Other [facility] Other 01-11-2023 18:10-0400 SaO2% (BldA) [Mass fraction] 96 % Angélica Hue Other [facility] Other 01-11-2023 18:10-0400 Systolic blood pressure 117 mm[Hg] Angélica Hue Other [facility] Other 10-18-2022 12:00-0500 Body height 165.1 cm Kelechi Ball Other [facility] Other 10-18-2022 12:00-0500 Body mass index (BMI) [Ratio] 52.31 kg/m2 Kelechi Ball Other [facility] Other 10-18-2022 12:00-0500 Body weight 142.61 kg Kelechi Galvan Other [facility] Other 10-18-2022 12:00-0500 Diastolic blood pressure 84 mm[Hg] Kelechi Galvan Other [facility] Other 10-18-2022 12:00-0500 Respiratory rate 12 /min Kelechi Galvan Other [facility] Other 10-18-2022 12:00-0500 Systolic blood pressure 122 mm[Hg] Kelechi Galvan Other [facility] Other Encounters Encounter Date Encounter Type Care Provider Facility Start: 09-08-2023 End: 09-08-2023 ambulatory Kelechi Galvan Other [facility] Other Start: 09-08-2023 Telephone encounter Kelechi Ball [facility] Start: 08-28-2023 End: 08-28-2023 ambulatory Kelechi Galvan Other [facility] Other Start: 08-28-2023 Telephone encounter Kelechi Ball [facility] Start: 08-26-2023 End: 08-26-2023 ambulatory Kelechi Galvan Other [facility] Other Start: 08-26-2023 Telephone encounter Kelechi Ball [facility] Start: 08-22-2023 End: 08-22-2023 ambulatory Kelechi Cole Other [facility] Other Start: 08-22-2023 Encounter for genera l adult medical examination without abnormal findings Kelechi Galvan [facility] Start: 08-22-2023 Periodic preventive med est patient 40-64yrs Kelechi Galvan [facility] Start: 05-26-2023 End: 05-26-2023 ambulatory Angélica Swann Other [facility] Other Start: 05-26-2023 Office outpatient vi sit 15 minutes Angélica Swann [facility] Start: 04-18-2023 End: 04-18-2023 ambulatory Kelechi Galvan Other [facility] Other Start: 04-18-2023 Office outpatient vi sit 15 minutes Kelechi Galvan [facility] Start: 02-28-2023 End: 02-28-2023 ambulatory Kelechi Galvan Other [facility] Other Start: 02-28-2023 Office outpatient vi sit 15 minutes Kelechi Galvan [facility] Start: 01-19-2023 End: 01-19-2023 ambulatory Kelechi Galvan Other [facility] Other Start: 01-19-2023 Telephone encounter Kelechi GRANDA [facility] Start: 01-16-2023 End: 01-16-2023 ambulatory Kelechi Galvan Other [facility] Other Start: 01-16-2023 Office outpatient vi sit 25 minutes Kelechi Galvan [facility] Start: 01-11-2023 End: 01-11-2023 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 Angélica Swann Work Phone: [facility] Work Phone: Start: 01-11-2023 End: 01-11-2023 ambulatory Angélica Hue [facility] Work Phone: Start: 01-11-2023 Office outpatient vi sit 15 minutes Angélica Swann [facility] Start: 01-11-2023 Telephone encounter Kelechi Galvan [facility] Start: 01-09-2023 Encounter for genera l adult medical examination without abnormal findings DR KELECHI GALVAN [facility] Start: 01-05-2023 End: 01-06-[address] KELECHI GALVAN Facility: Start: 01-05-2023 End: 01-06-2023 Encounter for general adult medical examination without abnormal findings DR KELECHI GALVAN Facility:[facility] Start: 01-03-2023 End: 01-03-2023 ambulatory Kelechi Galvan Other [facility] Other Start: 01-03-2023 Encounter for genera l adult medical examination without abnormal findings Kelechi Galvan [facility] Start: 01-03-2023 Patient encounter status Conrad Galvan Other [facility] Other Start: 01-03-2023 Telephone encounter Kelechi Galvan [facility] Start: 12-21-2022 End: 12-22-[address] KELECHI GALVAN Facility:[facility] Start: 12-08-2022 End: 12-09-[address] KELECHI GALVAN Facility:[facility] Start: 11-23-2022 End: 11-23-2022 ambulatory Kelechi Galvan Other [facility] Other Start: 11-23-2022 Telephone encounter Kelechi Galvan [facility] Start: 11-16-2022 End: 11-17-[address] KELECHI GALVAN Facility:[facility] Start: 11-09-2022 End: 11-24-[address] KELECHI GALVAN Facility:[facility] Start: 11-03-2022 End: 11-04-[address] KELECHI GALVAN Facility:[facility] Start: 10-27-2022 End: 10-28-[address] KELECHI GALVAN [facility] Other Start: 10-27-2022 Telephone encounter Kelechi Galvan [facility] Start: 10-18-2022 End: 10-18-2022 ambulatory Kelechi Glavan Other [facility] Other Start: 10-18-2022 Office outpatient vi sit 25 minutes Kelechi Galvan [facility] Start: 10-07-2022 End: 10-07-2022 ambulatory Kelechi Galvan Other [facility] Other Start: 10-07-2022 Telephone encounter Kelechi Galvan [facility] Start: 08-26-2022 Adult health examination Conrad min Cole Other [facility] Other Start: 07-11-2022 End: 07-12-[address] KELECHI GALVAN Facility:[facility] Start: 04-07-2022 End: 04-08-[address] DEANN ELIAS . 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 Angélica Swann Work Phone: Start: 01-18-2019 Preoperative cardiov ascular examination Kelechi Galvan Other End: 10-22-2018 Contraception care education Kelechi Galvan Other Depression screening Chuy Galvan Other Ligation of fallopian tube B enavelino Galvan Other Screening for malign ant neoplasm of breast Kelechi Galvan Other Plan of Treatment Date Care Activity Detail Author Start: 03-09-2023 ambulatory Ambulatory Facility:H 1 Payers Date Payer Category Payer Self-pay 1975 Unknown [id number] 2.16.84 [id number] 1975 Unknown [id number] 2.16.84 [id number] 1975 Unknown [id number] 2.16.84 [id number] 1975 Unknown [id number] .16.84 [id number] 1975 Unknown [id number] 2.16.84 [id number] 1975 Unknown [id number] 2.16.84 [id number] 1975 Unknown [id number] 2.16.84 [id number] 1975 Unknown [id number] 2.16.84 [id number] 1975 Unknown [id number] 2.16.84 [id number] 1975 Unknown [id number] 2.16.84 [id number] 1975 Unknown [id number] 2.16.84 [id number] 1960 Unknown [id number] 2.1 [id number] 1959 Unknown [id number] Medicaid [place] [employer] [id number] Unknown [id number] 2.16.8 [id number] Social History Date Type Detail Facility Unknown if ever smoked [facility] Other Sex Assigned At Sex Assigned At Bir th [facility] Other Start: 1975 Sex Assigned At Female F [facility] Clinical Notes 05-31-2011 to 09-08-2023 Note Date & Type Note Facility 09-08-2023 Evaluation note Encounter Date Diagnosis Assessment Notes Aug, Prolactinoma (ICD-10 - D35.2) MRI < 10mm, prolactin 80 - 2022 [facility] Other 12-16-2023 Evaluation note* Encounter Date Diagnosis Assessment Notes Treatment Notes Treatment Clinical Notes Aug, Hyperprolactinemia (ICD-10 - E22.1) [facility] Other 12-12-2023 Evaluation note* Encounter Date Diagnosis Assessment Notes [...] use, the patient reduces the risk for RI, CVA, HTN, cardiac dysrhythmias and sudden cardiac [...] patient on monthly SBE and yearly mammograms. [facility] Other 09-15-2023 Evaluation note* Encounter Date Diagnosis [...] thoracic region, initial encounter (ICD-10 - S29.019A) [facility] Other 08-08-2023 Evaluation note* Encounter Date Diagnosis Assessment Notes Treatment Notes Treatment Clinical Notes Apr, Sharmin-menopausal (ICD-10 - N95.1) Recommend scheduling appt w/ Professional Development Instructor. Apr, Primary hypertension (ICD-10 - I10) This [...] use, the patient reduces the risk for RI, CVA, HTN, cardiac dysrhythmias and sudden cardiac deaths.The patient is also aware of the association between REBA and morning headaches, daytime somnolence, fatigue and obesity, which also has been improved with continued use.The patient is compliant with treatment, wearing the equipment every night for greater than 4 hours.The patient is instructed to continue use of the CPAP for REBA treatment. [facility] Other 06-20-2023 Evaluation note* Encounter Date Diagnosis Assessment Notes Treatment Notes Treatment Clinical Notes Feb, Seborrheic dermatitis of scalp (ICD-10 - L21.9) Keep clean, avoid scratching Stop using Mupirocin Initiate topical steroid ointment Feb, Primary hypertension (ICD-10 - I10) This patient is instructed to consume a healthy, low-fat, low-salt diet. They are also encouraged to continue exercise to achieve/maintain a normal BMI. [facility] Other 05-11-2023 Evaluation note* Encounter Date Diagnosis Assessment Notes Treatment Notes Treatment Clinical Notes January, Type 2 diabetes mellitus with hyperglycemia, without long-term current use of insulin (ICD-10 - E11.65) [facility] Other 05-08-2023 Evaluation note* Encounter Date Diagnosis [...] G47.33) AHI 104 w/ Psat 68%, BiPAP 21/17, full facial mask This patient is aware of the benefits associated with REBA: With continued use, the patient reduces the risk for RI, CVA, HTN, cardiac dysrhythmias and sudden cardiac [...] visual defects. January, Hyperprolactinemia (ICD-10 - E22.1) [facility] Other 05-03-2023 Evaluation note* Encounter Date Diagnosis Assessment Notes Treatment Notes Treatment Clinical Notes January, REBA (obstructive sleep apnea) (ICD-10 - G47.33) AHI 104 w/ Psat 68%, BiPAP , full facial mask [facility] Other 05-03-2023 Evaluation note* Encounter Date Diagnosis [...] no improvement in 2 to 3 days [facility] Other 04-25-2023 Evaluation note* Encounter Date Diagnosis Assessment Notes Treatment Notes Treatment Clinical Notes Dec, Type 2 diabetes mellitus with hyperglycemia, without long-term current use of insulin (ICD-10 - E11.65) Dec, Primary hypertension (ICD-10 - I10) Dec, Wellness examination (ICD-10 - Z00.00) [facility] Other 03-30-2023 NoteCONSULTATION CONSULTATION DATE: 12/08/2022 TO: [...] this point for her residual pain symptoms.[id number] note* Encounter Date Diagnosis Assessment Notes Treatment Notes Treatment Clinical Notes Nov, REBA (obstructive sleep apnea) (ICD-10 - G47.33) AHI 101 w/ Psat 79% [facility] Other 03-15-2023 Evaluation note* Encounter Date Diagnosis Assessment Notes Treatment Notes Treatment Clinical Notes Nov, REBA (obstructive sleep apnea) (ICD-10 - G47.33) AHI 104 w/ Psat 68% [facility] Other 02-23-2023 NotePAIN MANAGEMENT CONSULTATION CONSULTATION DATE: [...] four weeks' time or sooner if needed.[facility] 11-03-2022 NotePAIN MANAGEMENT CONSULTATION CONSULTATION DATE: 11/03/2022 [...] on his response to change in medication.[facility] 10-18-2022 Evaluation note* Encounter Date Diagnosis Assessment [...] (ICD-10 - R29.818) Referral for sleep study [facility] Other 07-28-2022 NoteCONSULTATION CONSULTATION DATE: 04/07/2022 HISTORY [...] Patient states understanding and all questions answered.[facility] [id number] History general Narrative - Reported* Type Description Date Medical History hypertension Medical History back pain Medical History degenerative disc disease Medical History Prolactinoma Medical History asthma Surgical History C section 05/31/2011 Surgical History IVF 12/01/2008 Surgical History hysterectomy laps assisted - 007 Surgical History right foot sx (planter) Hospitalization History see above Hospitalization History blood transfusion 09/2014 [facility] Other Evaluation noteNo InformationNort [employer] Other Evaluation noteNo assessment information available [facility] Work Phone: History general Narrative - Reported* [...] see above Hospitalization History blood transfusion 09/2014 [facility] Other Summary Purpose Family History No Family [...] month Follow uprefillrash on scalp spreadingHormones/ Thoughts- [phone] in neck and upper backWELLNESS Informationlab resultsMR results INFORMATION SOURCE (unrecogn ized section and content) DATE CREATED AUTHOR 01/11/2023 [facility] DATE CREATED AUTHOR AUTHOR'S ORGANIZ ATION 01/12/2023 [facility] Care Teams (unrecognized sec tion and content) Team Status: Inactive Member Role Status Dates Angélica Swann NP-C Attending Provider Active Goals (unrecognized section and [...] BE BASED ON THE PRIMARY CLINICAL RECORDS. [facility] [employer] provides no warranty or guarantee of the accuracy or completeness of information in this document.
[2023-09-19 06:54] VITALS: BP 124/83; PULSE 70; RESP 16; TEMP 36.6; O2SAT 96
[2023-09-19 06:58] LABS: Glucometer 105 mg/dL (74-106)
[2023-09-19] MEDS: 0.9 % SODIUM CHLORIDE 500 ML IV (07:09)
[2023-09-19] MEDS: METHYLPREDNISOLONE ACETATE 40 MG/ML VIAL INJ (07:36)
[2023-09-19] MEDS: LIDOCAINE HCL 2% 400 MG/20 ML MDV 10 ML INJ (07:36)
[2023-09-19] MEDS: BUPIVACAINE HCL 0.25% PF 25 MG/10 ML VIAL 8 ML INJ (07:36)
[2023-09-19 07:57] VITALS: BP 115/80; PULSE 78; RESP 18; TEMP 36.2; O2SAT 93
[2023-09-19 08:01] VITALS: BP 104/76; PULSE 78; RESP 16; O2SAT 94
--- NOTE | 2023-09-19 09:17 | W.PM.PROCNOT ---
Date of procedure: 09/19/23 Pre-op diagnosis: Cervical Spondylosis Post-op diagnosis: same as pre-op Procedure: Right Cervical 5/6, 6/7 Radiofrequency ablation Under fluoroscopic guidance Rhizotomy was created using radio frequency ablation at 80?C for 90 seconds 1 to 2 lesions created at each site. Post lesioning injection of 2 mL each of 0.25% Marcaine and 2% lidocaine with Depo-Medrol 40mg. 0.5 to 1 mL injected at each site IV in place yes If Intravenous fluids: NS at KVO Anesthesia local 2% lidocaine for Anesthesia Other: MAC Timeout process compliant After informed consent obtained.Patient brought to the procedure room placed in the prone position skin overlying the area was prepped and draped in a sterile fashion using betadine. 25 gauge needle was used to create a skin wheal over each of the targeted areas utilizing 2% lidocaine. A rhizotomy needle with a 10 mm active tip was inserted over each of the anesthetized areas and directed towards each of the medial branches accomplished under fluoroscopic guidance. after encountering the same we had positive sensory stimulation, negative motor stimulation was noted. lesions were then created. Post lesioning, steroid solution was injected needles removed. Patient was transferred to recovery room in stable condition to be discharged home after meeting criteria. Anesthesia: MAC Surgeon: Julianna Black Condition: stable
== END 2023-09-19 08:17 | disposition home or self-care (01) ==
PROVIDERS: PCP Internal Medicine; Visit Provider Anesthesiology Pain Medicine
PROC: (CPT 1939; principal; 2023-09-19 07:30)
DX: M47.812 Spondylosis without myelopathy or radiculopathy, cervical region (principal)
CPT/HCPCS: 36415; 64633; 64634; 82948; J0665; J1030; J2250; J2704

== ENCOUNTER 2023-10-03 06:41 | Day surgery (SDC) | payer OTHER, SELFPAY ==
--- OUTSIDE RECORDS SUMMARY | 2023-10-03 06:43 | XMS_ITS | CCD ---
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 Name Role Phone Kelechi Galvan Unavailable COLE, [...] Care Unavailable COLE, DR CULVER Admitting Unavailable BAGWELL, DR ANGELA Orellana Consulting Unavailable COLE, DR [...] Penicillin G Drug Allergy pt doesn't remember [facility] Other (2 sources) Penicillins Drug allergy (disorder) 3 [facility] (7 sources) Doxycycline Drug Allergy Unknown [facility] Other (2 sources) Penicillin Drug Allergy Unknown [facility] Other (7 sources) Penicillin G Benzathine & Proc Drug allergy 7 Unknown [facility] Other (2 sources) patient allergy list reviewed by nurse or physicia Propensity to adverse reactions 4 Comment:Done [facility] Other (2 sources) Allergies Reconciled Propensity to adverse reactions Unknown [facility] Other Medications Current Medications Medication Drug Class(es) Dates Sig (Normalized) Sig (Original) atenolol 50 mg oral tablet (20 sources) beta-Adrenergic Selin take 1 tablet by mouth once daily Atenolol 50 MG TAKE 1 TABLET BY MOUTH EVERY DAY Active Atenolol Not-Anuj ing/PRN Atenolol Not-Anuj ing Atenolol Active baclofen 10 mg oral tablet (5 sources) gamma-Aminobutyric Acid-ergic Agonist take 1 tablet by mouth every twelve hours Baclofen 10 MG 1 tablet as needed Orally Twice a day Active cetirizine hydrochloride 10 mg oral tablet (5 sources) Histamine-1 Receptor Antagonist take 1 tablet by mouth once daily Cetirizine HCl 10 MG TAKE 1 TABLET BY MOUTH EVERY DAY for 90 Active dapagliflozin 5 mg oral tablet (10 sources) Sodium-Glucose Cotransporter 2 Inhibitor Start: 2022 take 1 tablet by mouth every twenty-four hours Farxiga 5 MG 1 tablet Orally Once a day January, Active 0.5 ML dulaglutide 9 MG/ML Auto-Injector [Trulicity] (18 sources) GLP-1 Receptor Agonist Start: 2022 inject [...] WEEKLY Active escitalopram 10 mg oral tablet (7 sources) Serotonin Reuptake Inhibitor Start: 04-18-2023 take 1 tablet by mouth every twenty-four hours Lexapro 10 MG 1 tablet Orally Once a day Apr, Active furosemide 20 mg oral tablet (18 sources) Loop Diuretic take 1 tablet by [...] e metFORMIN hydrochloride 1000 mg oral tablet (6 sources) Biguanide Start: 04-19-2023 take 1 tablet by mouth every twelve hours metFORMIN HCl 1000 MG 1 tablet Orally twice a day Apr, Active OneTouch Ultra - (6 sources) OneTouch Ultra - USE 1 STRIP TO CHECK HOME BLOOD SUGAR for 25 Active phentermine hydrochloride 37.5 mg oral tablet (5 sources) Sympathomimetic Amine Anorectic Start: 09-22-2023 take 1 tablet by mouth once daily before breakfast Adipex-P 37.5 MG 1 tablet before breakfast Orally Once a day for 30 days Rx #2 Sep, Active Start: 08-22-2023 take 1 tablet by leora th once daily before breakfast Adipex-P 37.5 MG 1 tablet before breakfast Orally Once a day for 30 days Rx #1 Aug, Active potassium 99 mg extended release oral tablet (6 sources) take 1 tablet by leora th once daily Potassium 99 MG 1 tablet Orally Once a day Active Potassium Active tiZANidine 4 mg oral tablet (18 sources) Central alpha-2 Adrenergic Agonist take 1 [...] Sig (Original) cabergoline 0.5 mg oral tablet (18 sources) Ergot Derivative take 1 tablet by mouth two times weekly as needed Cabergoline 0.5 MG 1 tablet Orally 2 times a week Not-Taking/PRN Dexamethasone / Neomycin / Polymyxin B (18 sources) Aminoglycoside Antibacterial, Polymyxin-class Antibacterial, Corticosteroid Start: 09-13-2020 take 2 drop(s) into the eye(s) three times daily as needed Maxitrol 3.5-28353-5.1 2 drops into affected eye Ophthalmic Three times a day for 7 days Sep, Not-Taking/PRN Start: 09-13-2020 take 2 drop(s) into the eye(s) three times daily Maxitrol 3.5-22227-9.1 2 drops into affected eye Ophthalmic Three times a day for 7 days Sep, Not-Taking Start: 09-13-2020 take 2 drop(s) into the eye(s) three times daily Maxitrol 3.5-84574-2.1 2 drops into affected eye Ophthalmic Three times a day for 7 days Sep, Active Ketorolac (18 sources) Nonsteroidal Anti-inflammatory Drug, Cyclooxygenase Inhibitor Start: 06-22-2019 Toradol per 15 mg Jun, 30 mg methylPREDNISolone (18 sources) Corticosteroid Start: 03-09-2015 Depo-Medrol 80 mg Feb, 80 mg predniSONE 20 mg oral tablet (6 sources) Start: 05-26-2023 take 1 tablet by mouth every twelve hours predniSONE 20 MG 1 tablet Orally bid for 5 day(s) May, Not-Taking/PRN Toradol 30 mg/ml (6 sources) Start: 05-26-2023 Toradol 30 mg/ml May, [...] A DAY FOR 2 WEEKS for 30 Active Problems Active Problems Problem Classification Problem Date [...] left knee] Onset: 5 Chronic Menopausal disorders (8 sources) Perimenopausal state; 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: [Menopausal and female climacteric states] Chronic Menstrual disorders (8 sources) Irregular periods; 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: [Irregular menstrual cycle] Onset: 7 Chronic Mood disorders (11 sources) Moderate major depression, single episode; 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: [Major depressive disorder, single episode, moderate] Chronic Mycoses (2 sources) Candidiasis; 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: [Candidiasis, unspecified] Episodic Nonmalignant breast conditions (17 sources) Large breast; 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: [Macromastia] Onset: 6 Episodic Other aftercare (2 sources) High risk drug monitoring status; 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] Episodic Other aftercare (2 sources) History and physical examination, follow-up; 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: [Encounter for follow-up examination after completed treatment for conditions other than malignant neoplasm] Episodic Other and unspecified benign neoplasm (18 sources) Prolactinoma; 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 [...] (peripheral)] Onset: 7 Episodic Other endocrine disorders (18 sources) Hyperprolactinemia; 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: [Hyperprolactinemia] Chronic Other endocrine [...] 3 Episodic Other inflammatory condition of skin (8 sources) Seborrheic dermatitis of scalp; 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: [Seborrheic [...] nutritional; endocrine; and metabolic disorders (4 sources) Morbid (severe) obesity due to excess calories Chronic Other nutritional; endocrine; and metabolic disorders (2 sources) Obesity; 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: [Obesity, unspecified] Chronic Other nutritional; endocrine; and metabolic disorders (2 sources) Hypercalcemia; 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: [Hypercalcemia] Onset: 8 Chronic Other nutritional; endocrine; and metabolic disorders (5 sources) Severe obesity; 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: [Morbid (severe) obesity due to excess calories] Chronic Other nutritional; endocrine; and metabolic disorders (2 sources) Body mass index (BMI) 50.0-59.9, adult Chronic [...] of unspecified site] Episodic Residual codes; unclassified (17 sources) Obstructive sleep apnea syndrome; 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: [Obstructive [...] Range Facility XR hand RT min 3V*on 05-03-2 023 XR hand RT min 3V* [facility] [address] [place] [address] XRay Report Signed Patient: Jing Gray MR#: [id number] 1 : 1975 Acct:[id number] Age/Sex: 47 / F ADM Date: 01/11/23 [facility]: Type: [facility] Attending Dr: Angélica FELIZ Copies to: TRINI [...] Blake Marino M.D.01/11/2023 6:08 PM Dictation Location: [place] [address] Transcribed By: [facility] 01/11/231807 Dictated By: Blake Marino DO 01/11/231806 Signed By: 01/11/231807 Normal [facility] XR hand RT min 3V* [facility] Other XR hand RT min 3V* [facility] Other XR hand RT min 3V* [address] [facility] Other XR hand RT min 3V* [place] [address] [facility] Other XR hand RT min 3V* XRay Report [facility] Other XR hand RT min 3V* Signed [facility] Other XR hand RT min 3V* Patient: Jing Gray MR#: [id number] [facility] Other XR hand RT min 3V* 1 [employer] Other XR hand RT min 3V* : 1975 Acct:[id number] [facility] Other XR hand RT min 3V* Age/Sex: 47 / F ADM Date: 01/11/23 [facility] Other XR hand RT min 3V* Loc: [facility] Room: [facility] Other XR hand RT min 3V* Attending Dr: Angélica FELIZ [employer] Other XR hand RT min 3V* Copies to: TRINI Alvarado [facility] Other XR hand RT min 3V* Ordering Provider: TRINI Alvarado [facility] Other XR hand RT min 3V* Date of Service: 01/11/23 [facility] Other XR hand RT min 3V* XR/XR hand RT min 3V*: RIGHT HAND INJURY [facility] Other XR hand RT min 3V* 3 views right hand plain film [employer] Other XR hand RT min 3V* COMPARISON: None [facility] Other XR hand RT min 3V* HISTORY: Fourth and fifth metacarpal injury [facility] Other XR hand RT min 3V* ACUTE FINDINGS: None [facility] Other XR hand RT min 3V* DEGENERATIVE CHANGE: Unremarkable [facility] Other XR hand RT min 3V* SOFT TISSUE FINDINGS: Unremarkable [facility] Other XR hand RT min 3V* JOINT EFFUSION: None [facility] Other XR hand RT min 3V* POSTOP CHANGES: None [facility] Other XR hand RT min 3V* BONY MINERALIZATION: Adequate [facility] Other XR hand RT min 3V* XR/XR hand RT min 3V* [facility] Other XR hand RT min 3V* IMPRESSION: No acute findings [facility] Other XR hand RT min 3V* Impression dictated by: Blake Marino M.D.01/11/2023 6:08 PM [facility] Other XR hand RT min 3V* Dictation Location: [place] [address] [employer] Other XR hand RT min 3V* Transcribed By: [facility] 01/11/23 [facility] [employer] Other XR hand RT min 3V* Dictated By: Blake Marino DO 01/11/23 [facility] [employer] Other XR hand RT min 3V* Signed By: [facility] Other XR hand RT min 3V* 01/11/[address] [place] [address] [employer] Other PROLACTINon 01-06-2023 Prolactin 34.5 ng/mL Critically high 4.8-23.3 [facility] Comment on above: Performed By: #### P ROLAC #### [facility] [address] [place] [address] [address] Digna Thomas CBC AUTO DIFFon 01-05-2023 BASO # 0.1 103/ul Normal 0.0-0.1 [facility] Comment on above: Performed By: #### C BC ####[facility] [address] [place] [address]Dr. Digna Thomas Basophils/100 WBC (Bld) 0.8 % Normal 0.2-2.0 [facility] Comment on above: Performed By: #### C BC ####[facility] [address] [place] [address]Dr. Digna Thomas EO # 0.5 103/ul Normal 0.0-0.7 [facility] Comment on above: Performed By: #### C BC ####[facility] [address] [place] [address]Dr. Digna Thomas Eosinophils/100 WBC (Bld) 5.0 % Normal 0.9-7.0 [facility] Comment on above: Performed By: #### C BC ####[facility] [address] [place] [address]Dr. Digna Thomas Erythrocyte distribution width (RBC) [Ratio] 13.0 % Normal 11.0-15.0 [facility] Comment on above: Performed By: #### C BC ####[facility] [address] [place], [place] [address]Dr. Digna Thomas Hematocrit (Bld) [Volume fraction] 44.6 % Normal 36.0-48.0 [facility] Comment on above: Performed By: #### C BC ####[facility] [address] [place], [place] [address]Dr. Digna Thomas Hemoglobin (Bld) [Mass/Vol] 14.4 g/dL Normal 12.0-16.0 [facility] Comment on above: Performed By: #### C BC ####[facility] [address] [place], [place] [address]Dr. Digna Thomas IG # 0.05 10e3/ul Critically high 0.00-0.03 [facility] Comment on above: Performed By: #### C BC ####[facility] [address] [place] [address]Dr. Digna Thomas IG % 0.5 % Normal 0.0-0.5 [facility] Comment on above: Performed By: #### C BC ####[facility] [address] [place], [place] [address]Dr. Digna Thomas LYMPH # 2.3 103/ul Normal 1.2-3.8 [facility] Comment on above: Performed By: #### C BC ####[facility] [address] [place] [address]. Digna Thomas Lymphocytes/100 WBC (Bld) 23.0 % Normal 20.5-60.0 [facility] Comment on above: Performed By: #### C BC ####[facility] [address] [place] [address]Dr. Digna Thomas MANUAL DIFF REQ NO Normal [facility] Comment on above: Performed By: #### C BC ####[facility] [address] [place] [address]Dr. Digna Thomas MCH (RBC) [Entitic mass] 28.3 pg Normal 26.7-34.0 [facility] Comment on above: Performed By: #### C BC ####[facility] [address] [place], [place] [address]Dr. Digna Thomas MCHC (RBC) [Mass/Vol] 32.3 g/dL Normal 29.9-35.2 [facility] Comment on above: Performed By: #### C BC ####[facility] [address] [place], [place] [address]Dr. Digna Thomas MCV (RBC) [Entitic vol] 87.8 fL Normal 81.0-99.0 [facility] Comment on above: Performed By: #### C BC ####[facility] [address] [place], [place] [address]Dr. Digna Thomas MONO # 0.8 103/ul Normal 0.3-0.8 [facility] Comment on above: Performed By: #### C BC ####[facility] [address] [place], [place] [address]Dr. Digna Thomas Monocytes/100 WBC (Bld) 7.9 % Normal 1.7-12.0 [facility] Comment on above: Performed By: #### C BC ####[facility] [address] [place], [place] [address]DrNile Thomas NEUT # 6.3 103/ul Normal 1.4-6.5 [facility] Comment on above: Performed By: #### C BC ####[facility] [address] [place], [place] [address]Dr. Digna William Neutrophils/100 WBC (Bld) 62.8 % Normal 43.0-75.0 [facility] Comment on above: Performed By: #### C BC ####[facility] [address] [place] [address]Dr. Digna Thomas Platelet mean volume (Bld) [Entitic vol] 9.9 fL Normal 9.5-13.5 [facility] Comment on above: Performed By: #### C BC ####[facility] [address] [place] [id number]. Digna William PLT 223 103/ul Normal 150-450 [facility] Comment on above: Performed By: #### C BC ####[facility] [address] [place] [address]Dr. Digna Thomas RBC 5.08 106/ul Normal 4.20-5.40 [facility] Comment on above: Performed By: #### C BC ####[facility] [address] [place] [address]Dr. Digna William WBC 10.0 103/ul Normal 4.0-11.0 [facility] Comment on above: Performed By: #### C BC ####[facility] [address] [place] [address]Dr. Digna Thomas LIPID PROFILEon 01-05-2023 CHOL-HDL RATIO NORM SEE BELOW Normal [facility] Comment on above: Result Comment: 3.3 - 4.4 LOW RISK 4.4 - 7.1 AVERAGE RISK 7.1 - 11.0 MODERATE RISK >11.0 HIGH RISK Performed By: #### B MP, TSH, LIPID #### [facility] [address] [place] [address] [address] Digna Thomas Cholesterol [Mass/Vol] 179 mg/dL Normal <=200 [facility] Comment on above: Performed By: #### B MP, TSH, LIPID #### [facility] [address] [place] [address] [address] Digna Thomas Cholesterol in HDL [Mass/Vol] 55 mg/dL Normal 40-60 [facility] Comment on above: Performed By: #### B MP, TSH, LIPID #### [facility] [address] [place] [address] Dr. Digna Thomas Cholesterol in LDL [Mass/Vol] 103.8 mg/dL Normal [facility] Comment on above: Performed By: #### B MP, TSH, LIPID #### [facility] [address] [place] [address] Dr. Digna Thomas Cholesterol.total/Ch olesterol in HDL [Mass ratio] 3.3 {ratio} Normal [facility] Comment on above: Performed By: #### B MP, TSH, LIPID #### [facility] [address] [place] [address] Dr. Digna Thomas HDL NORMAL > or = 60 mg/dl - LOW CARDIOVASCULAR RISK <40 mg/dl - HIGH CARDIOVASCULAR RISK Normal [facility] Comment on above: Performed By: #### B MP, TSH, LIPID #### [facility] [address] [place] [address] Dr. Digna Thomas LDL CALC NORMAL SEE BELOW Normal [facility] Comment on above: Result Comment: <100 mg/dl OPTIMAL 100 - 129 mg/dl NEAR OR ABOVE OPTIMAL 130 - 159 mg/dl BORDERLINE HIGH 160 - 189 mg/dl HIGH >190 mg/dl VERY HIGH Performed By: #### B MP, TSH, LIPID #### [facility] [address] [place] [address] Dr. Digna Thomas Triglyceride [Mass/Vol] 101 mg/dL Normal <=150 [facility] Comment on above: Performed By: #### B MP, TSH, LIPID #### [facility] [address] [place] [address] Dr. Digna Thomas VLDL CALC 20.2 mg/dL Normal [facility] Comment on above: Performed By: #### B MP, TSH, LIPID #### [facility] [address] [place] [address] Dr. Digna Thomas PROF CHEM 8 (BAS METB)on Anion gap [Moles/Vol] 13.3 mmol/L Normal [facility] Comment on above: Performed By: #### B MP, TSH, LIPID #### [facility] [address] [place] [address] [address] Digna Thomas Calcium [Mass/Vol] 9.4 mg/dL Normal 8.5-10.1 [facility] Comment on above: Performed By: #### B MP, TSH, LIPID #### [facility] [address] [place] [address] [address] Digna Thomas Chloride [Moles/Vol] 104 mmol/L Normal 98-107 [facility] Comment on above: Performed By: #### B MP, TSH, LIPID #### [facility] [address] [place] [address] [address] Digna Thomas CO2 [Moles/Vol] 27.1 mmol/L Normal 21.0-32.0 [facility] Comment on above: Performed By: #### B MP, TSH, LIPID #### [facility] [address] [place] [address] Dr. Digna Thomas Creatinine [Mass/Vol] 0.71 mg/dL Normal 0.55-1.02 [facility] Comment on above: Performed By: #### B MP, TSH, LIPID #### [facility] [address] [place] [address] [address] Digna Thomas EGFR-AF [place]ER >60 Normal >=60 [facility] Comment on above: Performed By: #### B MP, TSH, LIPID #### [facility] [address] [place] [address] Dr. Digna Thomas EGFR-NON AF [place] >60 Normal >=60 [facility] Comment on above: Performed By: #### B MP, TSH, LIPID #### [facility] [address] [place] [address] Dr. Digna Thomas Glucose [Mass/Vol] 163 mg/dL Critically high 74-106 [facility] Comment on above: Performed By: #### B MP, TSH, LIPID #### [facility] [address] [place] [address] [address] Digna Thomas Potassium [Moles/Vol] 4.4 mmol/L Normal 3.5-5.1 [facility] Comment on above: Performed By: #### B MP, TSH, LIPID #### [facility] [address] [place] [address] [address] Digna Thomas Sodium [Moles/Vol] 140 mmol/L Normal 136-145 [facility] Comment on above: Performed By: #### B MP, TSH, LIPID #### [facility] [address] [place] [address] [address] Digna Thomas Urea nitrogen [Mass/Vol] 15.0 mg/dL Normal 7.0-18.0 [facility] Comment on above: Performed By: #### B MP, TSH, LIPID #### [facility] [address] [place] [address] [address] Digna Thomas Urea nitrogen/Creatinine [Mass ratio] 21.1 mg/mg Normal [facility] Comment on above: Performed By: #### B MP, TSH, LIPID #### [facility] [address] [place] [address] [address] Digna Thomas TSHon 01-05-2023 TSH 3.955 uIU/mL Critically high 0.358-3.740 [facility] Comment on above: Performed By: #### B MP, TSH, LIPID #### [facility] [address] [place] [address] [address] Digna Thomas XR CSPINE MIN 4 [...] by: FELIPE TRINH Date: 2022-11-04 08:02 Normal [facility] GLYCOHEMOGLOBIN A1Con 2022 ADA RECOMMENDATION SEE BELOW Normal [facility] Comment on above: Result Comment: ADA RECOMMENDED LIMIT 4.0 - 6.0 ADA THERAPEUTIC TARGET < 7.0 ACTION SUGGESTED > 7.0 Performed By: #### A 1C ####[facility] [address] [place] [id number]. Digna Thomas Glucose [Mass/Vol] 166 mg/dL Normal [facility] Comment on above: Performed By: #### A 1C ####[facility] [address] [place] [id number]. Digna Thomas HbA1c (Bld) [Mass fraction] 7.4 % Critically high 4.5-6.2 [facility] Comment on above: Performed By: #### A 1C ####[facility] [address] [place] [address]Dr. Digna Thomas PROLACTINon 07-12-2022 Prolactin 48.0 ng/mL Critically high 4.8-23.3 [facility] Comment on above: Performed By: #### P ROLAC #### [facility] [address] [place] [address] [address] Digna Thomas CBC AUTO DIFFon 07-11-2022 BASO # 0.1 103/ul Normal 0.0-0.1 [facility] Comment on above: Performed By: #### C BC ####[facility] [address] [place] [address]Dr. Digna Thomas Basophils/100 WBC (Bld) 0.8 % Normal 0.2-2.0 [facility] Comment on above: Performed By: #### C BC ####[facility] [address] [place] [address]Dr. Digna Thomas EO # 0.7 103/ul Normal 0.0-0.7 [facility] Comment on above: Performed By: #### C BC ####[facility] [address] [place] [id number]. Digna Thomas Eosinophils/100 WBC (Bld) 5.8 % Normal 0.9-7.0 [facility] Comment on above: Performed By: #### C BC ####[facility] [address] [place] [id number]. Digna Thomas Erythrocyte distribution width (RBC) [Ratio] 12.7 % Normal 11.0-15.0 [facility] Comment on above: Performed By: #### C BC ####[facility] [address] [place] [address]Dr. Digna Thomas Hematocrit (Bld) [Volume fraction] 45.4 % Normal 36.0-48.0 [facility] Comment on above: Performed By: #### C BC ####[facility] [address] [place] [address]Dr. Digna Thomas Hemoglobin (Bld) [Mass/Vol] 15.3 g/dL Normal 12.0-16.0 [facility] Comment on above: Performed By: #### C BC ####[facility] [address] [place], [place] [address]Dr. Anajs Thomas IG # 0.04 10e3/ul Critically high 0.00-0.03 [facility] Comment on above: Performed By: #### C BC ####[facility] [address] [place], [place] [address]Dr. Digna Thomas IG % 0.3 % Normal 0.0-0.5 [facility] Comment on above: Performed By: #### C BC ####[facility] [address] [place], [place] [address]Dr. Digna William LYMPH # 3.3 103/ul Normal 1.2-3.8 [facility] Comment on above: Performed By: #### C BC ####[facility] [address] [place], [place] [address]Dr. Digna Thomas Lymphocytes/100 WBC (Bld) 28.1 % Normal 20.5-60.0 [facility] Comment on above: Performed By: #### C BC ####[facility] [address] [place], [place] [address]Dr. Anajs Thomas MANUAL DIFF REQ NO Normal [facility] Comment on above: Performed By: #### C BC ####[facility] [address] [place] [address]Dr. Digna Thomas MCH (RBC) [Entitic mass] 29.2 pg Normal 26.7-34.0 [facility] Comment on above: Performed By: #### C BC ####[facility] [address] [place] [id number]. Anajs Thomas MCHC (RBC) [Mass/Vol] 33.7 g/dL Normal 29.9-35.2 [facility] Comment on above: Performed By: #### C BC ####[facility] [address] [place] [id number]. Digna Thomas MCV (RBC) [Entitic vol] 86.6 fL Normal 81.0-99.0 [facility] Comment on above: Performed By: #### C BC ####[facility] [address] [place], [place] [address]Dr. Digna Thomas MONO # 0.8 103/ul Normal 0.3-0.8 [facility] Comment on above: Performed By: #### C BC ####[facility] [address] [place], [place] [address]Dr. Digna Thomas Monocytes/100 WBC (Bld) 6.4 % Normal 1.7-12.0 [facility] Comment on above: Performed By: #### C BC ####[facility] [address] [place], [place] [address]Dr. Digna Thomas NEUT # 6.9 103/ul Critically high 1.4-6.5 [facility] Comment on above: Performed By: #### C BC ####[facility] [address] [place], [place] [address]Dr. Digna Thomas Neutrophils/100 WBC (Bld) 58.6 % Normal 43.0-75.0 [facility] Comment on above: Performed By: #### C BC ####[facility] [address] [place], [place] [address]Dr. Digna Thomas Platelet mean volume (Bld) [Entitic vol] 10.0 fL Normal 9.5-13.5 [facility] Comment on above: Performed By: #### C BC ####[facility] [address] [place], [place] [address]Dr. Digna Thomas PLT 242 103/ul Normal 150-450 [facility] Comment on above: Performed By: #### C BC ####[facility] [address] [place] [id number]. Digna Thomas RBC 5.24 106/ul Normal 4.20-5.40 [facility] Comment on above: Performed By: #### C BC ####[facility] [address] [place] [phone]. Digna Thomas WBC 11.8 103/ul Critically high 4.0-11.0 [facility] Comment on above: Performed By: #### C BC ####[facility] [address] [place] [id number]. Digna Thomas GLYCOHEMOGLOBIN A1Con 2021 ADA RECOMMENDATION SEE BELOW Normal [facility] Comment on above: Result Comment: ADA RECOMMENDED LIMIT 4.0 - 6.0 ADA THERAPEUTIC TARGET < 7.0 ACTION SUGGESTED > 7.0 Performed By: #### A 1C ####[facility] [address] [place], [place] [address]Dr. Digna Thomas Glucose [Mass/Vol] 183 mg/dL Normal [facility] Comment on above: Performed By: #### A 1C ####[facility] [address] [place], [place] [address]Dr. Digna Thomas HbA1c (Bld) [Mass fraction] 8.0 % Critically high 4.5-6.2 [facility] Comment on above: Performed By: #### A 1C ####[facility] [address] [place], [place] [address]Dr. Digna Thomas LIPID PROFILEon 07-11-2022 CHOL-HDL RATIO NORM SEE BELOW Normal [facility] Comment on above: Result Comment: 3.3 - 4.4 LOW RISK 4.4 - 7.1 AVERAGE RISK 7.1 - 11.0 MODERATE RISK >11.0 HIGH RISK Performed By: #### B MP, LIPID, TSH ####[facility] [address] [place] [address]Dr. Digna Thomas Cholesterol [Mass/Vol] 161 mg/dL Normal <=200 [facility] Comment on above: Performed By: #### B MP, LIPID, TSH ####[facility] [address] [place], [place] [address]Vp. Digna Thomas Cholesterol in HDL [Mass/Vol] 51 mg/dL Normal 40-60 [facility] Comment on above: Performed By: #### B MP, LIPID, TSH ####[facility] [address] [place], [place] [address]Tq. Digna Thomas Cholesterol in LDL [Mass/Vol] 86.2 mg/dL Normal [facility] Comment on above: Performed By: #### B MP, LIPID, TSH ####[facility] [address] [place] [phone]. Digna Thomas Cholesterol.total/Ch olesterol in HDL [Mass ratio] 3.2 {ratio} Normal [facility] Comment on above: Performed By: #### B MP, LIPID, TSH ####[facility] [address] [place] [phone]. Digna Thomas HDL NORMAL > or = 60 mg/dl - LOW CARDIOVASCULAR RISK <40 mg/dl - HIGH CARDIOVASCULAR RISK Normal [facility] Comment on above: Performed By: #### B MP, LIPID, TSH ####[facility] [address] [place] [phone]. Digna Thomas LDL CALC NORMAL SEE BELOW Normal [facility] Comment on above: Result Comment: <100 mg/dl OPTIMAL 100 - 129 mg/dl NEAR OR ABOVE OPTIMAL 130 - 159 mg/dl BORDERLINE HIGH 160 - 189 mg/dl HIGH >190 mg/dl VERY HIGH Performed By: #### B MP, LIPID, TSH ####[facility] [address] [place] [phone]. Digna Thomas Triglyceride [Mass/Vol] 119 mg/dL Normal <=150 [facility] Comment on above: Performed By: #### B MP, LIPID, TSH ####[facility] [address] [place] [phone]. Digna Thomas VLDL CALC 23.8 mg/dL Normal [facility] Comment on above: Performed By: #### B MP, LIPID, TSH ####[facility] [address] [place] [phone]. Digna Thomas MG MAMM SCREEN 3D JANE CADon 07-11-2022 MG MAMM SCREEN 3D JANE CAD Patient: JING GRAY Exam Date: 07/11/2022 : 1975 Gender:F Ordering : DR KELECHI GALVAN D.O. Admission #: [id number] Family : Order #: [id number] CLICK HERE TO VIEW EXAM RADIOLOGY REPORT [...] bladder cancer at age 51. LOCATION: [facility] BREAST COMPOSITION: Scattered areas fibroglandular density. FINDINGS: [...] Cagle MD on 07/11/2022 at 10:14 Normal [facility] MICROALBUMIN, RAND URon 10-3 mALB 10.1 mg/L Normal <=30.0 [facility] Comment on above: Performed By: #### M ALBR #### [facility] [address] [place] [address] [address] Digna Thomas PROF CHEM 8 (BAS METB)on Anion gap [Moles/Vol] 10.6 mmol/L Normal [facility] Comment on above: Performed By: #### B MP, LIPID, TSH ####[facility] [address] [place] [phone]. Digna Thomas Calcium [Mass/Vol] 9.3 mg/dL Normal 8.5-10.1 [facility] Comment on above: Performed By: #### B MP, LIPID, TSH ####[facility] [address] [place] [phone]. Digna Thomas Chloride [Moles/Vol] 99 mmol/L Normal 98-107 [facility] Comment on above: Performed By: #### B MP, LIPID, TSH ####[facility] [address] [place] [address]Dr. Digna Thomas CO2 [Moles/Vol] 28.3 mmol/L Normal 21.0-32.0 [facility] Comment on above: Performed By: #### B MP, LIPID, TSH ####[facility] [address] [place] [address]Dr. Digna Thomas Creatinine [Mass/Vol] 0.74 mg/dL Normal 0.55-1.02 [facility] Comment on above: Performed By: #### B MP, LIPID, TSH ####[facility] [address] [place] [address]Dr. Digna Thomas EGFR-AF [place]ER >60 Normal >=60 [facility] Comment on above: Performed By: #### B MP, LIPID, TSH ####[facility] [address] [place] [address]Dr. Digna Thomas EGFR-NON AF [place] >60 Normal >=60 [facility] Comment on above: Performed By: #### B MP, LIPID, TSH ####[facility] [address] [place] [phone]. Digna Thomas Glucose [Mass/Vol] 190 mg/dL Critically high 74-106 [facility] Comment on above: Performed By: #### B MP, LIPID, TSH ####[facility] [address] [place] [address]Dr. Digna Thomas Potassium [Moles/Vol] 3.9 mmol/L Normal 3.5-5.1 [facility] Comment on above: Performed By: #### B MP, LIPID, TSH ####[facility] [address] [place] [id number] Thomas Sodium [Moles/Vol] 134 mmol/L Critically low 136-[address] [facility] Comment on above: Performed By: #### B MP, LIPID, TSH ####[facility] [address] [place] [phone]. Digna Thomas Urea nitrogen [Mass/Vol] 13.0 mg/dL Normal 7.0-18.0 [facility] Comment on above: Performed By: #### B MP, LIPID, TSH ####[facility] [address] [place] [phone]. Digna Thomas Urea nitrogen/Creatinine [Mass ratio] 17.6 mg/mg Normal [facility] Comment on above: Performed By: #### B MP, LIPID, TSH ####[facility] [address] [place] [phone] Thomas TSHon 07-11-2022 TSH 4.084 uIU/mL Critically high 0.358-3.740 [facility] Comment on above: Performed By: #### B MP, LIPID, TSH #### [facility] [address] [place], [place] [address] Dr. Digna Thomas Vital Signs Date Time Vital Sign Value Performing Clinician Facility 09-22-2023 09:00-0500 Body height 165.1 cm Kelechi Galvan Other [facility] Other 09-22-2023 09:00-0500 Body mass index (BMI) [Ratio] 50.25 kg/m2 Kelechi Galvan Other [facility] Other 09-22-2023 09:00-0500 Body weight 136.99 kg Kelechi Galvan Other [facility] Other 09-22-2023 09:00-0500 Diastolic blood pressure 85 mm[Hg] Kelechi Galvan Other [facility] Other 09-22-2023 09:00-0500 Respiratory rate 12 /min Kelechi Ball Other [facility] Other 09-22-2023 09:00-0500 Systolic blood pressure 136 mm[Hg] Kelechi Ball Other [facility] Other 08-22-2023 08:30-0500 Body height 165.1 cm Kelechi Ball Other [facility] Other 08-22-2023 08:30-0500 Body mass index (BMI) [Ratio] 52.95 kg/m2 Kelechi Ball Other [facility] Other 08-22-2023 08:30-0500 Body weight 144.34 kg Kelechi Ball Other [facility] Other 08-22-2023 08:30-0500 Diastolic blood pressure 75 mm[Hg] Kelechi Ball Other [facility] Other 08-22-2023 08:30-0500 Respiratory rate 12 /min Kelechi Ball Other [facility] Other 08-22-2023 08:30-0500 Systolic blood pressure 115 mm[Hg] Kelechi Ball Other [facility] Other 05-26-2023 09:40-0400 Body height 165.1 cm Angélica Swann Other [facility] Other 05-26-2023 09:40-0400 Body mass index (BMI) [Ratio] 51.88 kg/m2 Angélica Hue Other [facility] Other 05-26-2023 09:40-0400 Body temperature 98 [degF] Angélica Swann Other [facility] Other 05-26-2023 09:40-0400 Body weight 141.43 kg Angélica Hue Other [facility] Other 05-26-2023 09:40-0400 Diastolic blood pressure 68 mm[Hg] Angélica Hue Other [facility] Other 05-26-2023 09:40-0400 Respiratory rate 18 /min Angélica Hue Other [facility] Other 05-26-2023 09:40-0400 SaO2% (BldA) [Mass fraction] 96 % Angélica Swann Other [facility] Other 05-26-2023 09:40-0400 Systolic blood pressure 110 mm[Hg] Angélica Hue Other [facility] Other 02-28-2023 13:15-0400 Body height 165.1 cm Kelechi Ball Other [facility] Other 02-28-2023 13:15-0400 Body mass index (BMI) [Ratio] 52.55 kg/m2 Kelechi Ball Other [facility] Other 02-28-2023 13:15-0400 Body weight 143.25 kg Kelechi Ball Other [facility] Other 02-28-2023 13:15-0400 Diastolic blood pressure 77 mm[Hg] Kelechi Ball Other [facility] Other 02-28-2023 13:15-0400 Respiratory rate 12 /min Kelechi Ball Other [facility] Other 02-28-2023 13:15-0400 Systolic blood pressure 118 mm[Hg] Kelechi Ball Other [facility] Other 01-16-2023 12:30-0400 Body height 165.1 cm Kelechi Ball Other [facility] Other 01-16-2023 12:30-0400 Body mass index (BMI) [Ratio] 52.28 kg/m2 Kelechi Ball Other [facility] Other 01-16-2023 12:30-0400 Body weight 142.52 kg Kelechi Ball Other [facility] Other 01-16-2023 12:30-0400 Diastolic blood pressure 72 mm[Hg] Kelechi Ball Other [facility] Other 01-16-2023 12:30-0400 Respiratory rate 16 /min Kelechi Ball Other [facility] Other 01-16-2023 12:30-0400 Systolic blood pressure 147 mm[Hg] Kelechi Ball Other [facility] Other 01-11-2023 18:10-0400 Body height 165.1 cm Angélica Hue Other [facility] Other 01-11-2023 18:10-0400 Body mass index (BMI) [Ratio] 52.41 kg/m2 Angélica Hue Other [facility] Other 01-11-2023 18:10-0400 Body temperature 99.6 [degF] Angélica Hue Other [facility] Other 01-11-2023 18:10-0400 Body weight 142.88 kg Angélica Swann Other [facility] Other 01-11-2023 18:10-0400 Diastolic blood pressure 64 mm[Hg] Angélica Mcqueenmond Other [facility] Other 01-11-2023 18:10-0400 Respiratory rate 20 /min Angélica Swann Other [facility] Other 01-11-2023 18:10-0400 SaO2% (BldA) [Mass fraction] 96 % Angélica Swann Other [facility] Other 01-11-2023 18:10-0400 Systolic blood pressure 117 mm[Hg] Angélica Swann Other [facility] Other 10-18-2022 12:00-0500 Body height 165.1 cm Kelechi Ball Other [facility] Other 10-18-2022 12:00-0500 Body mass index (BMI) [Ratio] 52.31 kg/m2 Kelechi Ball Other [facility] Other 10-18-2022 12:00-0500 Body weight 142.61 kg Kelechi Ball Other [facility] Other 10-18-2022 12:00-0500 Diastolic blood pressure 84 mm[Hg] Kelechi Ball Other [facility] Other 10-18-2022 12:00-0500 Respiratory rate 12 /min Kelechi Ball Other [facility] Other 10-18-2022 12:00-0500 Systolic blood pressure 122 mm[Hg] Kelechi Ball Other [facility] Other Encounters Encounter Date Encounter Type Care Provider Facility Start: 09-22-2023 End: 09-22-2023 ambulatory Kelechi Galvan Other [facility] Other Start: 09-22-2023 Office outpatient vi sit 15 minutes Kelechi Galvan [facility] Start: 09-08-2023 End: 09-08-2023 ambulatory Kelechi Galvan Other [facility] Other Start: 09-08-2023 Telephone encounter Kelechi Galvan [facility] Start: 08-28-2023 End: 08-28-2023 ambulatory Kelechi Galvan Other [facility] Other Start: 08-28-2023 Telephone encounter Kelechi Galvan [facility] Start: 08-26-2023 End: 08-26-2023 ambulatory Kelechi Galvan Other [facility] Other Start: 08-26-2023 Telephone encounter Kelechi Galvan [facility] Start: 08-22-2023 End: 08-22-2023 ambulatory Kelechi Galvan Other [facility] Other Start: 08-22-2023 Encounter for genera l adult medical examination without abnormal findings Kelechi Galvan [facility] Start: 08-22-2023 Periodic preventive med est patient 40-64yrs Kelechi Galvan [facility] Start: 05-26-2023 End: 05-26-2023 ambulatory Angélica Swann Other [facility] Other Start: 05-26-2023 Office outpatient vi sit 15 minutes Angélica Swann [facility] Start: 04-18-2023 End: 04-18-2023 ambulatory Kelechi Galvan Other [facility] Other Start: 04-18-2023 Office outpatient vi sit 15 minutes Kelechi Galvan [facility] Start: 02-28-2023 End: 02-28-2023 ambulatory Kelechi Galvan Other [facility] Other Start: 02-28-2023 Office outpatient vi sit 15 minutes Kelechi Galvan [facility] Start: 01-19-2023 End: 01-19-2023 ambulatory Kelechi Galvan Other [facility] Other Start: 01-19-2023 Telephone encounter Kelechi Galvan [facility] Start: 01-16-2023 End: 01-16-2023 ambulatory Kelechi Galvan Other [facility] Other Start: 01-16-2023 Office outpatient vi sit 25 minutes Kelechi Galvan [facility] Start: 01-11-2023 End: 01-11-2023 Patient encounter procedure CHEMICAL TESTER-C Angélica Swann Work Phone: [facility] Work Phone: Start: 01-11-2023 End: 01-11-2023 ambulatory Angélica Hue [facility] Work Phone: Start: 01-11-2023 Office outpatient vi sit 15 minutes Angélica Hue [facility] Start: 01-11-2023 Telephone encounter Kelechi Galvan [facility] Start: 01-09-2023 Encounter for genera l adult medical examination without abnormal findings DR KELECHI GALVAN [facility] Start: 01-05-2023 End: 01-06-[address] KELECHI GALVAN Facility:[facility]1 Start: 01-05-2023 End: 01-06-2023 Encounter for general adult medical examination without abnormal findings DR KELECHI GALVAN Facility:[facility] Start: 01-03-2023 End: 01-03-2023 ambulatory Kelechi Galvan Other [facility] Other Start: 01-03-2023 Encounter for genera l adult medical examination without abnormal findings Kelechi Galvan [facility] Start: 01-03-2023 Patient encounter status Conrad kan Galvan Other [facility] Other Start: 01-03-2023 Telephone encounter Kelechi Galvan [facility] Start: 12-21-2022 End: 12-22-[address] KELECHI GALVAN Facility:[facility] Start: 12-08-2022 End: 12-09-[address] KELECHI GALVAN Facility:[facility] Start: 11-23-2022 End: 11-23-2022 ambulatory Kelechi Galvan Other [facility] Other Start: 11-23-2022 Telephone encounter Kelechi Galvan [facility] Start: 11-16-2022 End: 11-17-[address] KELECHI GALVAN Facility:[facility] Start: 11-09-2022 End: 11-24-[address] KELECHI GALVAN Facility:[facility] Start: 11-03-2022 End: 11-04-[address] KELECHI GALVAN Facility:[facility] Start: 10-27-2022 End: 10-28-[address] KELECHI GALVAN [facility] Other Start: 10-27-2022 Telephone encounter Kelechi Galvan [facility] Start: 10-18-2022 End: 10-18-2022 ambulatory Kelechi Galvan Other [facility] Other Start: 10-18-2022 Office outpatient vi sit 25 minutes Kelechi Galvan [facility] Start: 10-07-2022 End: 10-07-2022 ambulatory Kelechi Galvan Other [facility] Other Start: 10-07-2022 Telephone encounter Kelechi Galvan [facility] Start: 08-26-2022 Adult health examination Conrad min Cole Other [facility] Other Start: 07-11-2022 End: 07-12-[address] KELECHI GALVAN Facility:[facility] Start: 04-07-2022 End: 04-08-[address] DEANN ELIAS . Facility:[facility] Start: 07-28-2019 Pre-procedure evalua tion check Kelechi Galvan Other [facility] Other Start: 07-17-2018 Gynecological examin ation normal Kelechi Galvan Other [facility] Other Procedures Date Procedure Procedure Detail Performing Clinician Start: 01-11-2023 Plain X-ray of right hand CHEMICAL TESTER-C Angélicaelvia Swann Work Phone: Start: 01-18-2019 Preoperative cardiov [...] Date Payer Category Payer Self-pay 1975 Unknown [id number] 2.16.84 [id number] 1975 Unknown [id number] 2.16.84 [id number] 1975 Unknown [id number] 2.16.84 [id number] 1975 Unknown [id number] 2.16.84 [id number] 1975 Unknown [id number] 2.16.84 [id number] 1975 Unknown [id number] 2.16.84 [id number] 1975 Unknown [id number] 2.16.84 [id number] 1975 Unknown [id number] 2.16.84 [id number] 1975 Unknown [id number] 2.16.84 [id number] 1975 Unknown [id number] 2.16.84 [id number] 1975 Unknown [id number] 2.16.84 [id number] 1960 Unknown [id number] 2.1 [id number] 1960 Unknown [id number] Medicaid [employer] [id number] Unknown [id number] 2.16.8 [id number] Social History Date Type Detail Facility Unknown if ever smoked [facility] Other Sex Assigned At Sex Assigned At Bir th [facility] Other Start: 1975 Sex Assigned At Female F [facility] Clinical Notes 05-31-2011 to 09-22-2023 Note Date & Type Note Facility 09-22-2023 Evaluation note Encounter Date Diagnosis Assessment Notes Sep, Primary hypertension (ICD-10 - I10) This patient is instructed to consume a healthy, low-fat, low-salt diet. They are also encouraged to continue exercise to achieve/maintain a normal BMI. Sep, Type 2 diabetes mellitus with hyperglycemia, without [...] Microalbumin, Dilated eye exam and Foot exam Sep, Morbid (severe) obesity due to excess calories (ICD-10 - E66.01) This patient has been instructed on a low-fat, high-fiber diet. They are instructed to reduce calories, portion sizes and snacks. It is recommended that they exercise for 30 minutes, 3-5 times weekly. She denies any ADR to Adipex - Rx sent ot [place] Sep, Body mass index [BMI] 50.0-59.9, adult (ICD-10 - Z68.43) [facility] Other 12-29-2023 Evaluation note* Encounter Date Diagnosis Assessment Notes Treatment Notes Treatment Clinical Notes Aug, Prolactinoma (ICD-10 - D35.2) MRI < 10mm, prolactin 80 - 2022 [facility] Other 12-16-2023 Evaluation note* Encounter Date Diagnosis Assessment Notes Treatment Notes Treatment Clinical Notes Aug, Hyperprolactinemia (ICD-10 - E22.1) [facility] Other 12-12-2023 Evaluation note* Encounter Date Diagnosis [...] use, the patient reduces the risk for OH, CVA, HTN, cardiac dysrhythmias and sudden cardiac [...] patient on monthly SBE and yearly mammograms. [facility] Other 09-15-2023 Evaluation note* Encounter Date Diagnosis [...] thoracic region, initial encounter (ICD-10 - S29.019A) [facility] Other 08-08-2023 Evaluation note* Encounter Date Diagnosis Assessment Notes Treatment Notes Treatment Clinical Notes Apr, Sharmin-menopausal (ICD-10 - N95.1) Recommend scheduling appt w/ [facility]. Apr, Primary hypertension (ICD-10 - I10) This [...] use, the patient reduces the risk for OH, CVA, HTN, cardiac dysrhythmias and sudden cardiac deaths.The patient is also aware of the association between REBA and morning headaches, daytime somnolence, fatigue and obesity, which also has been improved with continued use.The patient is compliant with treatment, wearing the equipment every night for greater than 4 hours.The patient is instructed to continue use of the CPAP for REAB treatment. [facility] Other 06-20-2023 Evaluation note* Encounter Date Diagnosis Assessment Notes Treatment Notes Treatment Clinical Notes Feb, Seborrheic dermatitis of scalp (ICD-10 - L21.9) Keep clean, avoid scratching Stop using Mupirocin Initiate topical steroid ointment Feb, Primary hypertension (ICD-10 - I10) This patient is instructed to consume a healthy, low-fat, low-salt diet. They are also encouraged to continue exercise to achieve/maintain a normal BMI. [facility] Other 05-11-2023 Evaluation note* Encounter Date Diagnosis Assessment Notes Treatment Notes Treatment Clinical Notes January, Type 2 diabetes mellitus with hyperglycemia, without long-term current use of insulin (ICD-10 - E11.65) [facility] Other 05-08-2023 Evaluation note* Encounter Date Diagnosis [...] use, the patient reduces the risk for OH, CVA, HTN, cardiac dysrhythmias and sudden cardiac [...] visual defects. January, Hyperprolactinemia (ICD-10 - E22.1) [facility] Other 05-03-2023 Evaluation note* Encounter Date Diagnosis Assessment Notes Treatment Notes Treatment Clinical Notes January, REBA (obstructive sleep apnea) (ICD-10 - G47.33) AHI 104 w/ Psat 68%, BiPAP 21/17, full facial mask [facility] Other 05-03-2023 Evaluation note* Encounter Date Diagnosis [...] no improvement in 2 to 3 days [facility] Other 04-25-2023 Evaluation note* Encounter Date Diagnosis Assessment Notes Treatment Notes Treatment Clinical Notes Dec, Type 2 diabetes mellitus with hyperglycemia, without long-term current use of insulin (ICD-10 - E11.65) Dec, Primary hypertension (ICD-10 - I10) Dec, Wellness examination (ICD-10 - Z00.00) [facility] Other 03-30-2023 NoteCONSULTATION CONSULTATION DATE: 12/08/2022 TO: [...] this point for her residual pain symptoms.[id number]* Encounter Date Diagnosis Assessment Notes Treatment Notes Treatment Clinical Notes Nov, REBA (obstructive sleep apnea) (ICD-10 - G47.33) AHI 101 w/ Psat 79% [facility] Other 03-15-2023 Evaluation note* Encounter Date Diagnosis Assessment Notes Treatment Notes Treatment Clinical Notes Nov, REBA (obstructive sleep apnea) (ICD-10 - G47.33) AHI 104 w/ Psat 68% [facility] Other 02-23-2023 NotePAIN MANAGEMENT CONSULTATION CONSULTATION DATE: [...] four weeks' time or sooner if needed.[facility] 11-03-2022 NotePAIN MANAGEMENT CONSULTATION CONSULTATION DATE: 11/03/2022 [...] on his response to change in medication.[facility] 10-18-2022 Evaluation note* Encounter Date Diagnosis Assessment [...] (ICD-10 - R29.818) Referral for sleep study [facility] Other 07-28-2022 NoteCONSULTATION CONSULTATION DATE: 04/07/2022 HISTORY [...] Patient states understanding and all questions answered.[id number] History general Narrative - Reported* Type Description Date Medical History hypertension Medical History back pain Medical History degenerative disc disease Medical History Prolactinoma Medical History asthma Surgical History C section 05/31/2011 Surgical History IVF 12/01/2008 Surgical History hysterectomy laps assisted -2 007 Surgical History right foot sx (planter) Hospitalization History see above Hospitalization History blood transfusion 09/2014 [facility] Other Evaluation noteNo InformationNort [facility] Other Evaluation noteNo assessment information available [facility] Work Phone: History general Narrative - Reported* Type Description Date Medical History hypertension Medical History back pain Medical History degenerative disc disease Medical History Prolactinoma Medical History asthma Medical History REBA (obstructive sleep apnea) Surgical History C section 05/31/2011 Surgical History IVF 12/01/2008 Surgical History hysterectomy laps assisted -2 007 Surgical History right foot sx (planter) Hospitalization History see above Hospitalization History blood transfusion 09/2014 [facility] Other Summary Purpose Family History No Family [...] month Follow uprefillrash on scalp spreadingHormones/ Thoughts- [phone] in neck and upper backWELLNESSNo Informationlab resultsMR results1 month Follow up INFORMATION SOURCE (unrecogn ized section and content) DATE CREATED AUTHOR 01/11/2023 [facility] DATE CREATED AUTHOR AUTHOR'S ORGANIZ ATION 01/12/2023 [facility] Care Teams (unrecognized sec tion and [...] BE BASED ON THE PRIMARY CLINICAL RECORDS. [employer] provides no warranty or guarantee of the accuracy or completeness of information in this document.
[2023-10-03 06:52] VITALS: BP 114/73; PULSE 72; RESP 16; TEMP 36.5; O2SAT 98
[2023-10-03 07:06] LABS: Glucometer 99 mg/dL (74-106)
[2023-10-03] MEDS: 0.9 % SODIUM CHLORIDE 500 ML IV (07:06)
[2023-10-03] MEDS: METHYLPREDNISOLONE ACETATE 40 MG/ML VIAL INJ (07:35)
[2023-10-03] MEDS: LIDOCAINE HCL 2% 400 MG/20 ML MDV 5 ML INJ (07:35)
[2023-10-03] MEDS: BUPIVACAINE HCL 0.25% PF 25 MG/10 ML VIAL 2.5 ML INJ (07:35)
[2023-10-03 07:54] VITALS: BP 109/77; PULSE 76; RESP 16; TEMP 36.4
[2023-10-03 07:59] VITALS: BP 114/70; PULSE 76; RESP 16; TEMP 36.4; O2SAT 97
--- NOTE | 2023-10-03 08:46 | W.PM.PROCNOT ---
Date of procedure: 10/03/23 Pre-op diagnosis: Cervical Spondylosis Post-op diagnosis: same as pre-op Procedure: Left Cervical 5/6, 6/7 Radiofrequency ablation Under fluoroscopic guidance Rhizotomy was created using radio frequency ablation at 80?C for 90 seconds 1 to 2 lesions created at each site. Post lesioning injection of 2 mL each of 0.25% Marcaine and 2% lidocaine with Depo-Medrol 40mg. 0.5 to 1 mL injected at each site IV in place yes If Intravenous fluids: NS at KVO Anesthesia local 2% lidocaine for Anesthesia Other: MAC Timeout process compliant After informed consent obtained.Patient brought to the procedure room placed in the prone position skin overlying the area was prepped and draped in a sterile fashion using betadine. 25 gauge needle was used to create a skin wheal over each of the targeted areas utilizing 2% lidocaine. A rhizotomy needle with a 10 mm active tip was inserted over each of the anesthetized areas and directed towards each of the medial branches accomplished under fluoroscopic guidance. after encountering the same we had positive sensory stimulation, negative motor stimulation was noted. lesions were then created. Post lesioning, steroid solution was injected needles removed. Patient was transferred to recovery room in stable condition to be discharged home after meeting criteria. Anesthesia: MAC Surgeon: Julianna Black Condition: stable
== END 2023-10-03 08:15 | disposition home or self-care (01) ==
LOC: SURGOUT 06:41
PROVIDERS: PCP Internal Medicine; Visit Provider Anesthesiology Pain Medicine
PROC: (CPT 1992; principal; 2023-10-03 07:30)
DX: M47.812 Spondylosis without myelopathy or radiculopathy, cervical region (principal)
CPT/HCPCS: 36415; 64633; 64634; 82948; J0665; J1030; J1100; J2250; J2704

== ENCOUNTER 2023-11-02 07:34 | Outpatient (OUT) | payer OTHER, SELFPAY ==
--- OUTSIDE RECORDS SUMMARY | 2023-11-02 07:37 | XMS_ITS | CCD ---
Author Name Unknown Address [address] [place] [address] Organization [facility] Care Team Providers Care Acid Tester Name Role Phone Kelechi Galvan Unavailable COLE, DR CLUVER Primary Care Unavailable LAKSHMIPATHY ., NARENDPAULA Admitting Bebe vailable LAKSHMIPATHY ., ERINN Consulting Bebe vailable LAKSHMIPATHY ., ERINN Attending Bebe vailable ELIAS ., DR DEANN Mcguire Attending Unavailable BALL, DR CULVER Primary Care Unavailable ELIAS ., DR DEANN Mcguire Admitting Unavailable HUNG .YOGESH Consulting Unavailable COLE, DR CULVER Primary Care Unavailable LAKSHMIPATHY ., NARENDPAULA Consulting Bebe vailable LAKSHMIPATHY ., NARENDMERIATH Attending Bebe vailable LAKSHMIPATHY ., NARENDRANATH Admitting Bebe vailable LAKSHMIPATHY ., NARENDRANATH Attending Bebe vailable LAKSHMIPATHY ., ERINN Admitting Bebe vailable COLE, DR CULVER Primary Care Unavailable COLE, DR CULVER Primary Care Unavailable COLE, DR CULVER Consulting Unavailable COLE, DR CULVER Attending Unavailable BALL, DR CULVER Admitting Unavailable COLE, DR CULVER Primary Care Unavailable COLE, DR CULVER Consulting Unavailable COLE, DR CULVER Attending Unavailable BALL, DR CULVER Admitting Unavailable COLE, DR CULVER Primary Care Unavailable LAKSHMIPATHY ., NARENDPAULA Admitting Bebe vailable LAKSHMIPATHY ., NARENDPAULA Attending Bebe vailable ZIEBSHELLY, DR FELIPE Santiago Consulting Unavailable LAKSHMIPATHY ., ERINN Consulting Bebe vailable COLE, DR CULVER Primary Care Unavailable COLE, DR CULVER Consulting Unavailable COLE, DR CULVER Attending Unavailable BALL, DR CULVER Admitting Unavailable BALL, DR CULVER Consulting Unavailable COLE, DR CULVER Attending Unavailable COLE, DR CULVER Primary Care Unavailable COLE, DR CULVER Admitting Unavailable LAKESIDE, DR ANGELA Orellana Consulting Unavailable COLE, DR CULVER Consulting Unavailable COLE, DR CULVER Attending Unavailable COLE, DR CULVER Admitting Unavailable BALL, DR CULVER Primary Care Unavailable COLE, DR CULVER Primary Care Unavailable LAKSHMIPATHY ., NARENDRANATH Admitting Bebe vailable LAKRILEYMIPATHY ., NARENDRANATH Attending Bebe vailable Angélica Swann Unavailable Angélica Swann Attending Unavailable Angélica Swann Admitting Unavailable TRINI Swann Attending Provider Allergies Allergy Classification Reported Allergen(s) Allergy Type Date of Onset Reaction(s) Facility (13 sources) Penicillin G Drug Allergy pt doesn't remember [facility] (2 sources) Penicillins Drug allergy (disorder) 3 [facility] Repository (10 sources) Doxycycline Drug Allergy 4 Unknown, Unknown Reaction [facility] (2 sources) Penicillin Drug Allergy Unknown [facility] Other (9 sources) Penicillin G Benzathine & Proc Drug allergy 7 Unknown [facility] Other (2 sources) patient allergy list reviewed by nurse or physicia Propensity to adverse reactions 4 Comment:Done [facility] Other (2 sources) Allergies Reconciled Propensity to adverse reactions Unknown [facility] Other (1 source) Penicillin G Benzathine Allergy to substance 4 Unknown Reaction [facility] Medications Current Medications Medication Drug Class(es) Dates Sig (Normalized) Sig (Original) atenolol 50 mg oral tablet (20 sources) beta-Adrenergic Selin take 1 tablet by mouth once daily Atenolol 50 MG TAKE 1 TABLET BY MOUTH EVERY DAY Active Atenolol Not-Anuj ing/PRN Atenolol Not-Anuj ing Atenolol Active baclofen 10 mg oral tablet (7 sources) gamma-Aminobutyric Acid-ergic Agonist take 1 tablet by mouth every twelve hours Baclofen 10 MG 1 tablet as needed Orally Twice a day Active cetirizine hydrochloride 10 mg oral tablet (7 sources) Histamine-1 Receptor Antagonist take 1 tablet by mouth once daily Cetirizine HCl 10 MG TAKE 1 TABLET BY MOUTH EVERY DAY for 90 Active dapagliflozin 5 mg oral tablet (12 sources) Sodium-Glucose Cotransporter 2 Inhibitor Start: 2022 take 1 tablet by mouth every twenty-four hours Farxiga 5 MG 1 tablet Orally Once a day January, Active 0.5 ML dulaglutide 9 MG/ML Auto-Injector [Trulicity] (20 sources) GLP-1 Receptor Agonist Start: 2022 inject [...] WEEKLY Active escitalopram 10 mg oral tablet (10 sources) Serotonin Reuptake Inhibitor Start: 10-27-2023 take 10 mg by mouth once daily Escitalopram Oxalate Active 10 MG PO Daily October 27, 2023 12:00am Start: 04-18-2023 take 1 tablet by leora th every twenty-four hours Lexapro 10 MG 1 tablet Orally Once a day Apr, Active furosemide 20 mg oral tablet (20 sources) Loop Diuretic take 1 tablet by leora th every twenty-four hours Furosemide 20 MG 1 tablet Orally Once a day Active Furosemide Activ e lisinopril 5 mg oral tablet (20 sources) Angiotensin Converting Enzyme Inhibitor take 1 tablet by mouth once daily Lisinopril 5 MG TAKE 1 TABLET BY MOUTH EVERY DAY Active Lisinopril Not-T aking/PRN Lisinopril Not-T aking Lisinopril Activ e metFORMIN hydrochloride 1000 mg oral tablet (8 sources) Biguanide Start: 04-19-2023 take 1 tablet by mouth every twelve hours metFORMIN HCl 1000 MG 1 tablet Orally twice a day Apr, Active Nirmatrelvir-Ritona vir (Paxlovid) 300 mg (150 mg x 2)-100 mg tablets,dose pack (1 source) Start: 10-27-2023 take 2 tablets by mouth once, then take 1 tablet by mouth twice daily Nirmatrelvir-Blu navir (Paxlovid) 300 mg (150 mg x 2)-100 mg tablets,dose pack Active 0 PO per package directions 07 02October 27, 2023 12:00am take TWO 150 mg tablets of nirmatrelvir with ONE 100 mg tablet of ritonavir twice daily for 5 days orally per package directions; Educabilia Ultra - (8 sources) Educabilia Ultra - USE 1 STRIP TO CHECK HOME BLOOD SUGAR for 25 Active phentermine hydrochloride 37.5 mg oral tablet (7 sources) Sympathomimetic Amine Anorectic Start: 10-23-2023 take 1 tablet by mouth once daily before breakfast Adipex-P 37.5 MG 1 tablet before breakfast Orally Once a day for 30 days Rx #3 Oct, Active Start: 09-22-2023 take 1 tablet by leora once daily before breakfast Adipex-P 37.5 MG 1 tablet before breakfast Orally Once a day Rx #2 Sep, Active Start: 08-22-2023 take 1 tablet by leora once daily before breakfast Adipex-P 37.5 MG 1 tablet before breakfast Orally Once a day for 30 days Rx #1 Aug, Active potassium 99 mg extended release oral tablet (8 sources) take 1 tablet by leora once daily Potassium 99 MG 1 tablet Orally Once a day Active Potassium Active tiZANidine 4 mg oral tablet (20 sources) Central alpha-2 Adrenergic Agonist take 1 [...] Sig (Original) cabergoline 0.5 mg oral tablet (20 sources) Ergot Derivative take 1 tablet by mouth two times weekly as needed Cabergoline 0.5 MG 1 tablet Orally 2 times a week Not-Taking/PRN Dexamethasone / Neomycin / Polymyxin B (20 sources) Aminoglycoside Antibacterial, Polymyxin-class Antibacterial, Corticosteroid Start: 09-13-2020 take 2 drop(s) into the eye(s) three times daily as needed Maxitrol 3.5-07808-2.1 2 drops into affected eye Ophthalmic Three times a day for 7 days Sep, Not-Taking/PRN Start: 09-13-2020 take 2 drop(s) into the eye(s) three times daily Maxitrol 3.5-05955-7.1 2 drops into affected eye Ophthalmic Three times a day for 7 days Sep, Not-Taking Start: 09-13-2020 take 2 drop(s) into the eye(s) three times daily Maxitrol 3.5-05980-3.1 2 drops into affected eye Ophthalmic Three times a day for 7 days Sep, Active Ketorolac (20 sources) Nonsteroidal Anti-inflammatory Drug, Cyclooxygenase Inhibitor Start: 06-22-2019 Toradol per 15 mg Jun, 30 mg methylPREDNISolone (20 sources) Corticosteroid Start: 03-09-2015 Depo-Medrol 80 mg Feb, 80 mg predniSONE 20 mg oral tablet (8 sources) Start: 05-26-2023 take 1 tablet by mouth every twelve hours predniSONE 20 MG 1 tablet Orally bid for 5 day(s) May, Not-Taking/PRN Toradol 30 mg/ml (8 sources) Start: 05-26-2023 Toradol 30 mg/ml May, [...] left knee] Onset: 5 Chronic Menopausal disorders (10 sources) Perimenopausal state; 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: [Menopausal and female climacteric states] Chronic Menstrual disorders (8 sources) Irregular periods; 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: [Irregular menstrual cycle] Onset: 7 Chronic Mood disorders (13 sources) Moderate major depression, single episode; 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: [Major depressive disorder, single episode, moderate] Chronic Mycoses (2 sources) Candidiasis; 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: [Candidiasis, unspecified] Episodic Nonmalignant breast conditions (17 sources) Large breast; 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: [Macromastia] Onset: 6 Episodic Other aftercare (2 sources) High risk drug monitoring status; 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: [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] Episodic Other aftercare (2 sources) History and physical examination, follow-up; 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: [Encounter for follow-up examination after completed treatment for conditions other than malignant neoplasm] Episodic Other and unspecified benign neoplasm (20 sources) Prolactinoma; 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 [...] (peripheral)] Onset: 7 Episodic Other endocrine disorders (20 sources) Hyperprolactinemia; 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: [Hyperprolactinemia] Chronic Other endocrine [...] 3 Episodic Other inflammatory condition of skin (10 sources) Seborrheic dermatitis of scalp; 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: [Seborrheic [...] mass index (BMI) 45.0-49.9, adult] Onset: 6 10-27-2023 Chronic Other nutritional; endocrine; and metabolic disorders (6 sources) Morbid (severe) obesity due to excess calories Chronic Other nutritional; endocrine; and metabolic disorders (2 sources) Obesity; 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: [Obesity, unspecified] Chronic Other nutritional; endocrine; and metabolic disorders (2 sources) Hypercalcemia; 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: [Hypercalcemia] Onset: 8 Chronic Other nutritional; endocrine; and metabolic disorders (7 sources) Severe obesity; 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: [Morbid (severe) obesity due to excess calories] Chronic Other nutritional; endocrine; and metabolic disorders (3 sources) Body mass index (BMI) 50.0-59.9, adult Chronic Other nutritional; endocrine; and metabolic disorders (1 source) Obesity caused by energy imbalance; 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: [Morbid (severe) obesity due to excess calories] 10-27-2023 Chronic Other screening for suspected conditions (not [...] of unspecified site] Episodic Residual codes; unclassified (19 sources) Obstructive sleep apnea syndrome; 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: [Obstructive [...] [Ankle sprain] Onset: 9 Episodic Viral infection (5 sources) Herpesviral vesicular dermatitis; 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: [Herpesviral vesicular dermatitis] Onset: 8 10-27-2023 Episodic Viral infection (2 sources) Disease caused [...] 3V*on 023 XR hand RT min 3V* [facility] [place] [address] XRay Report Signed Patient: Jing Gray MR#: [id number] 1 : 1975 Acct:[id number] Age/Sex: 47 / F ADM Date: 01/11/23 Loc: XDUCLY Room: Type: [facility] Attending Dr: Angélica FELIZ Copies to: TRINI [...] Blake Marino M.D.01/11/2023 6:08 PM Dictation Location: [place] [address] Transcribed By: [facility] 01/11/231807 Dictated By: Blake Marino DO 01/11/231806 Signed By: 01/11/231807 Normal [facility] XR hand RT min 3V* [facility] Other XR hand RT min 3V* [facility] [employer] Other XR hand RT min 3V* [address] [place] [address] [employer] Other XR hand RT min 3V* [place] [address] [facility] Other XR hand RT min 3V* XRay Report [facility] Other XR hand RT min 3V* Signed [facility] Other XR hand RT min 3V* Patient: Jing Gray MR#: [id number] [facility] Other XR hand RT min 3V* 1 [facility] Other XR hand RT min 3V* : 1975 Acct:[id number] [facility] Other XR hand RT min 3V* Age/Sex: 47 / F ADM Date: 01/11/23 [facility] Other XR hand RT min 3V* Loc: XDUCLY Room: Type: [facility] Other XR hand RT min 3V* Attending Dr: Angélica FELIZ [facility] Other XR hand RT min 3V* Copies to: TRINI Alvarado [facility] Other XR hand RT min 3V* Ordering Provider: TRINI Alvarado [facility] Other XR hand RT min 3V* Date of Service: 01/11/23 [facility] Other XR hand RT min 3V* XR/XR hand RT min 3V*: RIGHT HAND INJURY [facility] Other XR hand RT min 3V* 3 views right hand plain film [facility] Other XR hand RT min 3V* COMPARISON: None [facility] Other XR hand RT min 3V* HISTORY: Fourth and fifth metacarpal injury [facility] Other XR hand RT min 3V* ACUTE FINDINGS: None [facility] Other XR hand RT min 3V* DEGENERATIVE CHANGE: Unremarkable [facility] Other XR hand RT min 3V* SOFT TISSUE FINDINGS: Unremarkable [facility] Other XR hand RT min 3V* JOINT EFFUSION: None [facility] Other XR hand RT min 3V* POSTOP CHANGES: None [facility] Other XR hand RT min 3V* BONY MINERALIZATION: Adequate [facility] Other XR hand RT min 3V* XR/XR hand RT min 3V* [facility] Other XR hand RT min 3V* IMPRESSION: No acute findings [facility] Other XR hand RT min 3V* Impression dictated by: Blake Marino M.D.01/11/2023 6:08 PM [facility] Other XR hand RT min 3V* Dictation Location: [place] [address] [facility] Other XR hand RT min 3V* Transcribed By: DILCIA 01/11/23 [address] [employer] Other XR hand RT min 3V* Dictated By: Blake Marino DO 01/11/231806 [facility] Other XR hand RT min 3V* Signed By: [place] [employer] Other XR hand RT min 3V* 01/11/231807 [facility] [employer] Other PROLACTINon 01-06-2023 Prolactin 34.5 ng/mL Critically high 4.8-23.3 [facility] Comment on above: Performed By: #### P ROLAC #### [facility] [address] [place] [address] [address] Digna Thomas CBC AUTO DIFFon 01-05-2023 BASO # 0.1 103/ul Normal 0.0-0.1 [facility] Comment on above: Performed By: #### C BC ####[facility] [address] [place] [address]Dr. Digna Thomas Basophils/100 WBC (Bld) 0.8 % Normal 0.2-2.0 [facility] Comment on above: Performed By: #### C BC ####[facility] [address] [place] [address]Dr. Digna Thomas EO # 0.5 103/ul Normal 0.0-0.7 [facility] Comment on above: Performed By: #### C BC ####[facility] [address] [place] [address]Dr. Digna Thomas Eosinophils/100 WBC (Bld) 5.0 % Normal 0.9-7.0 [facility] Comment on above: Performed By: #### C BC ####[facility] [address] [place], [place] [address]Dr. Digna Thomas Erythrocyte distribution width (RBC) [Ratio] 13.0 % Normal 11.0-15.0 [facility] Comment on above: Performed By: #### C BC ####[facility] [address] [place], [place] [address]Dr. Digna Thomas Hematocrit (Bld) [Volume fraction] 44.6 % Normal 36.0-48.0 [facility] Comment on above: Performed By: #### C BC ####[facility] [address] [place] [address]Dr. Digna Thomas Hemoglobin (Bld) [Mass/Vol] 14.4 g/dL Normal 12.0-16.0 [facility] Comment on above: Performed By: #### C BC ####[facility] [address] [place], [place] [address]Dr. Digna Thomas IG # 0.05 10e3/ul Critically high 0.00-0.03 [facility] Comment on above: Performed By: #### C BC ####[facility] [address] [place], [place] [address]Dr. Digna Thomas IG % 0.5 % Normal 0.0-0.5 [facility] Comment on above: Performed By: #### C BC ####[facility] [address] [place], [place] [address]Dr. Digna Thomas LYMPH # 2.3 103/ul Normal 1.2-3.8 [facility] Comment on above: Performed By: #### C BC ####[facility] [address] [place], [place] [address]Dr. Digna Thomas Lymphocytes/100 WBC (Bld) 23.0 % Normal 20.5-60.0 [facility] Comment on above: Performed By: #### C BC ####[facility] [address] [place], [place] [address]Dr. Digna Thomas MANUAL DIFF REQ NO Normal [facility] Comment on above: Performed By: #### C BC ####[facility] [address] [place], [place] [address]Dr. Digna Thomas MCH (RBC) [Entitic mass] 28.3 pg Normal 26.7-34.0 [facility] Comment on above: Performed By: #### C BC ####[facility] [address] [place], [place] [address]Dr. Digna Thomas MCHC (RBC) [Mass/Vol] 32.3 g/dL Normal 29.9-35.2 [facility] Comment on above: Performed By: #### C BC ####[facility] [address] [place] [address]DrNile Digna William MCV (RBC) [Entitic vol] 87.8 fL Normal 81.0-99.0 [facility] Comment on above: Performed By: #### C BC ####[facility] [address] [place], [place] [address]DrNile Thomas MONO # 0.8 103/ul Normal 0.3-0.8 [facility] Comment on above: Performed By: #### C BC ####[facility] [address] [place], [place] [address]DrNile Thomas Monocytes/100 WBC (Bld) 7.9 % Normal 1.7-12.0 [facility] Comment on above: Performed By: #### C BC ####[facility] [address] [place], [place] [address]DrNile Thomas NEUT # 6.3 103/ul Normal 1.4-6.5 [facility] Comment on above: Performed By: #### C BC ####[facility] [address] [place], [place] [address]DrNile Anajs Thomas Neutrophils/100 WBC (Bld) 62.8 % Normal 43.0-75.0 [facility] Comment on above: Performed By: #### C BC ####[facility] [address] [place], [place] [address]DrNile Thomas Platelet mean volume (Bld) [Entitic vol] 9.9 fL Normal 9.5-13.5 [facility] Comment on above: Performed By: #### C BC ####[facility] [address] [place], [place] [address]DrNile Thomas PLT 223 103/ul Normal 150-450 [facility] Comment on above: Performed By: #### C BC ####[facility] [address] [place], [place] [address]DrNile Thomas RBC 5.08 106/ul Normal 4.20-5.40 [facility] Comment on above: Performed By: #### C BC ####[facility] [address] [place], [place] [address]YrDr. Digna Thomas WBC 10.0 103/ul Normal 4.0-11.0 [facility] Comment on above: Performed By: #### C BC ####[facility] [address] [place], [place] [address]ZbDr. Digna Thomas LIPID PROFILEon 01-05-2023 CHOL-HDL RATIO NORM SEE BELOW Normal [facility] Comment on above: Result Comment: 3.3 - 4.4 LOW RISK 4.4 - 7.1 AVERAGE RISK 7.1 - 11.0 MODERATE RISK >11.0 HIGH RISK Performed By: #### B MP, TSH, LIPID #### [facility] [address] [address] [address] Digna Thomas Cholesterol [Mass/Vol] 179 mg/dL Normal <=200 [facility] Comment on above: Performed By: #### B MP, TSH, LIPID #### [facility] [address] [address] [address] Digna Thomas Cholesterol in HDL [Mass/Vol] 55 mg/dL Normal 40-60 [facility] Comment on above: Performed By: #### B MP, TSH, LIPID #### [facility] [address] [address] [address] Digna Thomas Cholesterol in LDL [Mass/Vol] 103.8 mg/dL Normal [facility] Comment on above: Performed By: #### B MP, TSH, LIPID #### [facility] [address] [address] [address] Digna Thomas Cholesterol.total/Ch olesterol in HDL [Mass ratio] 3.3 {ratio} Normal [facility] Comment on above: Performed By: #### B MP, TSH, LIPID #### [facility] [address] [address] [address] Digna Thomas HDL NORMAL > or = 60 mg/dl - LOW CARDIOVASCULAR RISK <40 mg/dl - HIGH CARDIOVASCULAR RISK Normal [facility] Comment on above: Performed By: #### B MP, TSH, LIPID #### [facility] [address] [address] [address] Digna Thomas LDL CALC NORMAL SEE BELOW Normal [facility] Comment on above: Result Comment: <100 mg/dl OPTIMAL 100 - 129 mg/dl NEAR OR ABOVE OPTIMAL 130 - 159 mg/dl BORDERLINE HIGH 160 - 189 mg/dl HIGH >190 mg/dl VERY HIGH Performed By: #### B MP, TSH, LIPID #### [facility] [address] [address] [address] Digna Thomas Triglyceride [Mass/Vol] 101 mg/dL Normal <=150 [facility] Comment on above: Performed By: #### B MP, TSH, LIPID #### [facility] [address] [place] [address] Dr. Digna Thomas VLDL CALC 20.2 mg/dL Normal [facility] Comment on above: Performed By: #### B MP, TSH, LIPID #### [facility] [address] [address] [address] Digna Thomas PROF CHEM 8 (BAS METB)on Anion gap [Moles/Vol] 13.3 mmol/L Normal [facility] Comment on above: Performed By: #### B MP, TSH, LIPID #### [facility] [address] [address] [address] Digna Thomas Calcium [Mass/Vol] 9.4 mg/dL Normal 8.5-10.1 [facility] Comment on above: Performed By: #### B MP, TSH, LIPID #### [facility] [address] [address] [address] Digna Thomas Chloride [Moles/Vol] 104 mmol/L Normal 98-107 [facility] Comment on above: Performed By: #### B MP, TSH, LIPID #### [facility] [address] [place] [address] Dr. Digna Thomas CO2 [Moles/Vol] 27.1 mmol/L Normal 21.0-32.0 [facility] Comment on above: Performed By: #### B MP, TSH, LIPID #### [facility] [address] [address] [address] Digna Thomas Creatinine [Mass/Vol] 0.71 mg/dL Normal 0.55-1.02 [facility] Comment on above: Performed By: #### B MP, TSH, LIPID #### [facility] [address] [address] [address] Digna Thomas EGFR-AF MACEDONIAN >60 Normal >=60 [facility] Comment on above: Performed By: #### B MP, TSH, LIPID #### [facility] [address] [address] [address] Digna Thomas EGFR-NON AF MACEDONIAN >60 Normal >=60 [facility] Comment on above: Performed By: #### B MP, TSH, LIPID #### [facility] [address] [address] [address] Digna Thomas Glucose [Mass/Vol] 163 mg/dL Critically high 74-106 [facility] Comment on above: Performed By: #### B MP, TSH, LIPID #### [facility] [address] [address] [address] Digna Thomas Potassium [Moles/Vol] 4.4 mmol/L Normal 3.5-5.1 [facility] Comment on above: Performed By: #### B MP, TSH, LIPID #### [facility] [address] [address] [address] Digna Thomas Sodium [Moles/Vol] 140 mmol/L Normal 136-145 [facility] Comment on above: Performed By: #### B MP, TSH, LIPID #### [facility] [address] [address] [address] Digna Thomas Urea nitrogen [Mass/Vol] 15.0 mg/dL Normal 7.0-18.0 [facility] Comment on above: Performed By: #### B MP, TSH, LIPID #### [facility] [address] [address] [address] Digna Thomas Urea nitrogen/Creatinine [Mass ratio] 21.1 mg/mg Normal [facility] Comment on above: Performed By: #### B MP, TSH, LIPID #### [facility] [address] [address] [address] Digna Thomas TSHon 01-05-2023 TSH 3.955 uIU/mL Critically high 0.358-3.740 The [facility] Comment on above: Performed By: #### B MP, TSH, LIPID #### [facility] [address] [address] [address] Digna Thomas XR CSPINE MIN 4 [...] by: FELIPE TRINH Date: 2022-11-04 08:02 Normal The [facility] GLYCOHEMOGLOBIN A1Con 2022 ADA RECOMMENDATION SEE BELOW Normal The [facility] Comment on above: Result Comment: ADA RECOMMENDED LIMIT 4.0 - 6.0 ADA THERAPEUTIC TARGET < 7.0 ACTION SUGGESTED > 7.0 Performed By: #### A 1C ####[facility] [address] [address]Dr. Digna Thomas Glucose [Mass/Vol] 166 mg/dL Normal [facility] Comment on above: Performed By: #### A 1C ####[facility] [address] [address]DrNile Thomas HbA1c (Bld) [Mass fraction] 7.4 % Critically high 4.5-6.2 The [facility] Comment on above: Performed By: #### A 1C ####[facility] [address] [address]DrNile Thomas PROLACTINon 07-12-2022 Prolactin 48.0 ng/mL Critically high 4.8-23.3 The [facility] Comment on above: Performed By: #### P ROLAC #### [facility] [address], [place] [address] Dr. Digna Thomas CBC AUTO DIFFon 07-11-2022 BASO # 0.1 103/ul Normal 0.0-0.1 [facility] Comment on above: Performed By: #### C BC ####[facility] [address] [id number]. Digna Thomas Basophils/100 WBC (Bld) 0.8 % Normal 0.2-2.0 The [facility] Comment on above: Performed By: #### C BC ####[facility] [address] [address]DrNile Thomas EO # 0.7 103/ul Normal 0.0-0.7 The [facility] Comment on above: Performed By: #### C BC ####[facility] [address] [address]Dr. Digna Thomas Eosinophils/100 WBC (Bld) 5.8 % Normal 0.9-7.0 [facility] Comment on above: Performed By: #### C BC ####[facility] [address] [address]Dr. Digna Thomas Erythrocyte distribution width (RBC) [Ratio] 12.7 % Normal 11.0-15.0 [facility] Comment on above: Performed By: #### C BC ####[facility] [address] [address]Dr. Digna Thomas Hematocrit (Bld) [Volume fraction] 45.4 % Normal 36.0-48.0 [facility] Comment on above: Performed By: #### C BC ####[facility] [address] [phone]. Digna Thomas Hemoglobin (Bld) [Mass/Vol] 15.3 g/dL Normal 12.0-16.0 The [facility] Comment on above: Performed By: #### C BC ####[facility] [address] [place], [place] [address]DrNile Thomas IG # 0.04 10e3/ul Critically high 0.00-0.03 [facility] Comment on above: Performed By: #### C BC ####[facility] [address] [phone]. Digna Thomas IG % 0.3 % Normal 0.0-0.5 [facility] Comment on above: Performed By: #### C BC ####[facility] [address] [id number]. Digna Thomas LYMPH # 3.3 103/ul Normal 1.2-3.8 The [facility] Comment on above: Performed By: #### C BC ####[facility] [address] [id number]. Digna Thomas Lymphocytes/100 WBC (Bld) 28.1 % Normal 20.5-60.0 [facility] Comment on above: Performed By: #### C BC ####[facility] [address] [id number]. Digna Thomas MANUAL DIFF REQ NO Normal [facility] Comment on above: Performed By: #### C BC ####[facility] [address] [id number]. Digna Thomas MCH (RBC) [Entitic mass] 29.2 pg Normal 26.7-34.0 [facility] Comment on above: Performed By: #### C BC ####[facility] [address] [phone]. Digna Thomas MCHC (RBC) [Mass/Vol] 33.7 g/dL Normal 29.9-35.2 The [facility] Comment on above: Performed By: #### C BC ####[facility] [address] [phone]. Digna Thomas MCV (RBC) [Entitic vol] 86.6 fL Normal 81.0-99.0 The [facility] Comment on above: Performed By: #### C BC ####[facility] [address] [id number]. Digna William MONO # 0.8 103/ul Normal 0.3-0.8 The [facility] Comment on above: Performed By: #### C BC ####[facility] [address] [id number]. Digna Thomas Monocytes/100 WBC (Bld) 6.4 % Normal 1.7-12.0 The [facility] Comment on above: Performed By: #### C BC ####[facility] [address] [id number]. Digna Thomas NEUT # 6.9 103/ul Critically high 1.4-6.5 The [facility] Comment on above: Performed By: #### C BC ####[facility] [address] [id number]. Digna Thomas Neutrophils/100 WBC (Bld) 58.6 % Normal 43.0-75.0 [facility] Comment on above: Performed By: #### C BC ####[facility] [address] [id number]. Digna Thomas Platelet mean volume (Bld) [Entitic vol] 10.0 fL Normal 9.5-13.5 [facility] Comment on above: Performed By: #### C BC ####[facility] [address] [id number]. Digna Thomas PLT 242 103/ul Normal 150-450 The [facility] Comment on above: Performed By: #### C BC ####[facility] [address] [id number]. Digna Thomas RBC 5.24 106/ul Normal 4.20-5.40 The [facility] Comment on above: Performed By: #### C BC ####[facility] [address] [id number]. Digna Thomas WBC 11.8 103/ul Critically high 4.0-11.0 The [facility] Comment on above: Performed By: #### C BC ####[facility] [address] [id number]. Digna Thomas GLYCOHEMOGLOBIN A1Con 2021 ADA RECOMMENDATION SEE BELOW Normal The [facility] Comment on above: Result Comment: ADA RECOMMENDED LIMIT 4.0 - 6.0 ADA THERAPEUTIC TARGET < 7.0 ACTION SUGGESTED > 7.0 Performed By: #### A 1C ####[facility] [address] [id number]. Digna Thomas Glucose [Mass/Vol] 183 mg/dL Normal [facility] Comment on above: Performed By: #### A 1C ####[facility] [address] [id number]. Digna Thomas HbA1c (Bld) [Mass fraction] 8.0 % Critically high 4.5-6.2 [facility] Comment on above: Performed By: #### A 1C ####[facility] [address] [address]Dr. Digna Thomas LIPID PROFILEon 07-11-2022 CHOL-HDL RATIO NORM SEE BELOW Normal [facility] Comment on above: Result Comment: 3.3 - 4.4 LOW RISK 4.4 - 7.1 AVERAGE RISK 7.1 - 11.0 MODERATE RISK >11.0 HIGH RISK Performed By: #### B MP, LIPID, TSH ####[facility] [address] [address]Dr. Digna Thomas Cholesterol [Mass/Vol] 161 mg/dL Normal <=200 [facility] Comment on above: Performed By: #### B MP, LIPID, TSH ####[facility] [address] [id number]. Digna Thomas Cholesterol in HDL [Mass/Vol] 51 mg/dL Normal 40-60 [facility] Comment on above: Performed By: #### B MP, LIPID, TSH ####[facility] [address] [address]Dr. Digna Thomas Cholesterol in LDL [Mass/Vol] 86.2 mg/dL Normal [facility] Comment on above: Performed By: #### B MP, LIPID, TSH ####[facility] [address] [phone]. Digna Thomas Cholesterol.total/Ch olesterol in HDL [Mass ratio] 3.2 {ratio} Normal [facility] Comment on above: Performed By: #### B MP, LIPID, TSH ####[facility] [address] [id number]. Digna Thomas HDL NORMAL > or = 60 mg/dl - LOW CARDIOVASCULAR RISK <40 mg/dl - HIGH CARDIOVASCULAR RISK Normal [facility] Comment on above: Performed By: #### B MP, LIPID, TSH ####[facility] [address] [address]Dr. Digna Thomas LDL CALC NORMAL SEE BELOW Normal The [facility] Comment on above: Result Comment: <100 mg/dl OPTIMAL 100 - 129 mg/dl NEAR OR ABOVE OPTIMAL 130 - 159 mg/dl BORDERLINE HIGH 160 - 189 mg/dl HIGH >190 mg/dl VERY HIGH Performed By: #### B MP, LIPID, TSH ####[facility] [address] [address]Dr. Digna Thomas Triglyceride [Mass/Vol] 119 mg/dL Normal <=150 The [facility] Comment on above: Performed By: #### B MP, LIPID, TSH ####[facility] [address] [address]Dr. Digna Thomas VLDL CALC 23.8 mg/dL Normal The [facility] Comment on above: Performed By: #### B MP, LIPID, TSH ####[facility] [address] [address]Dr. Digna Thomas MG MAMM SCREEN 3D JANE CADon 07-11-2022 MG MAMM SCREEN 3D JANE CAD Patient: JING GRAY Exam Date: 07/11/2022 : 1975 Gender:F Ordering : DR KELECHI GALVAN D.O. Admission #: [id number] Family : Order #: [id number] CLICK HERE TO VIEW EXAM RADIOLOGY REPORT [...] bladder cancer at age 51. LOCATION: The [facility] BREAST COMPOSITION: Scattered areas fibroglandular [...] Cagle MD on 07/11/2022 at 10:14 Normal [facility] MICROALBUMIN, RAND URon 10-3 mALB 10.1 mg/L Normal <=30.0 [facility] Comment on above: Performed By: #### M ALBR #### [facility] [address] [address] [address] Digna Thomas PROF CHEM 8 (BAS METB)on Anion gap [Moles/Vol] 10.6 mmol/L Normal [facility] Comment on above: Performed By: #### B MP, LIPID, TSH ####[facility] [address] [id number]. Digna Thomas Calcium [Mass/Vol] 9.3 mg/dL Normal 8.5-10.1 [facility] Comment on above: Performed By: #### B MP, LIPID, TSH ####[facility] [address] [id number]. Digna Thomas Chloride [Moles/Vol] 99 mmol/L Normal 98-107 [facility] Comment on above: Performed By: #### B MP, LIPID, TSH ####[facility] [address] [id number] Thomas CO2 [Moles/Vol] 28.3 mmol/L Normal 21.0-32.0 [facility] Comment on above: Performed By: #### B MP, LIPID, TSH ####[facility] [address] [id number]. Digna Thomas Creatinine [Mass/Vol] 0.74 mg/dL Normal 0.55-1.02 [facility] Comment on above: Performed By: #### B MP, LIPID, TSH ####[facility] [address] [id number]. Digna Thomas EGFR-AF MACEDONIAN >60 Normal >=60 [facility] Comment on above: Performed By: #### B MP, LIPID, TSH ####[facility] [address] [id number]. Digna Thomas EGFR-NON AF MACEDONIAN >60 Normal >=60 [facility] Comment on above: Performed By: #### B MP, LIPID, TSH ####[facility] [address] [id number]. Digna Thomas Glucose [Mass/Vol] 190 mg/dL Critically high 74-106 T [facility] Comment on above: Performed By: #### B MP, LIPID, TSH ####[facility] [address] [phone]. Digna Thomas Potassium [Moles/Vol] 3.9 mmol/L Normal 3.5-5.1 [facility] Comment on above: Performed By: #### B MP, LIPID, TSH ####[facility] [address] [phone]. Digna Thomas Sodium [Moles/Vol] 134 mmol/L Critically low 136-145 Th [facility] Comment on above: Performed By: #### B MP, LIPID, TSH ####[facility] [address] [id number]. Digna Thomas Urea nitrogen [Mass/Vol] 13.0 mg/dL Normal 7.0-18.0 [facility] Comment on above: Performed By: #### B MP, LIPID, TSH ####[facility] [address] [id number]. Anajs William Urea nitrogen/Creatinine [Mass ratio] 17.6 mg/mg Normal [facility] Comment on above: Performed By: #### B MP, LIPID, TSH ####[facility] [address] [place], [place] [address]Dr. Digna Thomas TSHon 07-11-2022 TSH 4.084 uIU/mL Critically high 0.358-3.740 [facility] Comment on above: Performed By: #### B MP, LIPID, TSH #### [facility] [address], [place] [address] Dr. Digna Thomas Vital Signs Date Time Vital Sign Value Performing Clinician Facility 10-17-2023 09:00-0500 Body height 165.1 cm Kelechi Ball Other [facility] Other 10-17-2023 09:00-0500 Body mass index (BMI) [Ratio] 48.49 kg/m2 Kelechi Ball Other [facility] Other 10-17-2023 09:00-0500 Body weight 132.18 kg Kelechi Ball Other [facility] Other 10-17-2023 09:00-0500 Diastolic blood pressure 88 mm[Hg] Kelechi Ball Other [facility] Other 10-17-2023 09:00-0500 Respiratory rate 12 /min Kelechi Ball Other [facility] Other 10-17-2023 09:00-0500 Systolic blood pressure 138 mm[Hg] Kelechi Ball Other [facility] Other 09-22-2023 09:00-0500 Body height 165.1 cm Kelechi Ball Other [facility] 09-22-2023 09:00-0500 Body mass index (BMI) [Ratio] 50.25 kg/m2 Kelechi Ball Other [facility] Other 09-22-2023 09:00-0500 Body weight 136.99 kg Kelechi Ball Other [facility] Other 09-22-2023 09:00-0500 Body weight 136.98 kg [facility] 09-22-2023 09:00-0500 Diastolic blood pressure 85 mm[Hg] Kelechi Ball Other [facility] 09-22-2023 09:00-0500 Respiratory rate 12 /min Kelechi Ball Other [facility] Other 09-22-2023 09:00-0500 Systolic blood pressure 136 mm[Hg] Kelechi Ball Other [facility] 08-22-2023 08:30-0500 Body height 165.1 cm Kelechi Ball Other [facility] 08-22-2023 08:30-0500 Body mass index (BMI) [Ratio] 52.95 kg/m2 Kelechi Ball Other [facility] Other 08-22-2023 08:30-0500 Body weight 144.34 kg Kelechi Ball Other [facility] Other 08-22-2023 08:30-0500 Body weight 144.33 kg [facility] 08-22-2023 08:30-0500 Diastolic blood pressure 75 mm[Hg] Kelechi Ball Other [facility] 08-22-2023 08:30-0500 Respiratory rate 12 /min Kelechi Ball Other [facility] Other 08-22-2023 08:30-0500 Systolic blood pressure 115 mm[Hg] Kelechi Ball Other [facility] 05-26-2023 09:40-0400 Body height 165.1 cm Angélica Swann Other [facility] Other 05-26-2023 09:40-0400 Body mass index (BMI) [Ratio] 51.88 kg/m2 Angélica Mcqueenmond Other [facility] Other 05-26-2023 09:40-0400 Body temperature 98 [degF] Angélica Mcqueenmond Other [facility] Other 05-26-2023 09:40-0400 Body weight 141.43 kg Angélica Swann Other [facility] Other 05-26-2023 09:40-0400 Diastolic blood pressure 68 mm[Hg] Angélica Mcqueenmond Other [facility] Other 05-26-2023 09:40-0400 Respiratory rate 18 /min Angélica Swann Other [facility] Other 05-26-2023 09:40-0400 SaO2% (BldA) [Mass fraction] 96 % Angélica Swann Other [facility] Other 05-26-2023 09:40-0400 Systolic blood pressure 110 mm[Hg] Angélica Mcqueenmond Other [facility] Other 02-28-2023 13:15-0400 Body height 165.1 cm Kelechi Ball Other [facility] Other 02-28-2023 13:15-0400 Body mass index (BMI) [Ratio] 52.55 kg/m2 Kelechi Ball Other [facility] Other 02-28-2023 13:15-0400 Body weight 143.25 kg Kelechi Ball Other [facility] Other 02-28-2023 13:15-0400 Diastolic blood pressure 77 mm[Hg] Kelechi Ball Other [facility] Other 02-28-2023 13:15-0400 Respiratory rate 12 /min Kelechi Ball Other [facility] Other 02-28-2023 13:15-0400 Systolic blood pressure 118 mm[Hg] Kelechi Ball Other [facility] Other 01-16-2023 12:30-0400 Body height 165.1 cm Kelechi Ball Other [facility] Other 01-16-2023 12:30-0400 Body mass index (BMI) [Ratio] 52.28 kg/m2 Kelechi Ball Other [facility] Other 01-16-2023 12:30-0400 Body weight 142.52 kg Kelechi Ball Other [facility] Other 01-16-2023 12:30-0400 Diastolic blood pressure 72 mm[Hg] Kelechi Ball Other [facility] Other 01-16-2023 12:30-0400 Respiratory rate 16 /min Kelechi Ball Other [facility] Other 01-16-2023 12:30-0400 Systolic blood pressure 147 mm[Hg] Kelechi Ball Other [facility] Other 01-11-2023 18:10-0400 Body height 165.1 cm Angélica Swann Other [facility] Other 01-11-2023 18:10-0400 Body mass index (BMI) [Ratio] 52.41 kg/m2 Angélica Swann Other [facility] Other 01-11-2023 18:10-0400 Body temperature 99.6 [degF] Angélica Swann Other [facility] Other 01-11-2023 18:10-0400 Body weight 142.88 kg Angélica Mcqueenmond Other [facility] Other 01-11-2023 18:10-0400 Diastolic blood pressure 64 mm[Hg] Angélica Swann Other [facility] Other 01-11-2023 18:10-0400 Respiratory rate 20 /min Angélica Swann Other [facility] Other 01-11-2023 18:10-0400 SaO2% (BldA) [Mass fraction] 96 % Angélica Swann Other [facility] Other 01-11-2023 18:10-0400 Systolic blood pressure 117 mm[Hg] Angélica Mcqueenmond Other [facility] Other 10-18-2022 12:00-0500 Body height 165.1 cm Kelechi Ball Other [facility] Other 10-18-2022 12:00-0500 Body mass index (BMI) [Ratio] 52.31 kg/m2 Kelechi Ball Other [facility] Other 10-18-2022 12:00-0500 Body weight 142.61 kg Kelechi Ball Other [facility] Other 10-18-2022 12:00-0500 Diastolic blood pressure 84 mm[Hg] Kelechi Ball Other [facility] Other 10-18-2022 12:00-0500 Respiratory rate 12 /min Kelechi Galvan Other [facility] Other 10-18-2022 12:00-0500 Systolic blood pressure 122 mm[Hg] Kelechi Galvan Other [facility] Other Encounters Encounter Date Encounter Type Care Provider Facility Start: 10-27-2023 End: 10-27-2023 ambulatory [facility] Work Phone: Start: 10-27-2023 End: 10-27-2023 Patient encounter procedure [facility] Work Phone: Start: 10-20-2023 End: 10-20-2023 ambulatory Kelechi Ball Other [facility] Other Start: 10-20-2023 Encounter by alysha lizarraga Kelechi Galvan [facility] Start: 10-17-2023 End: 10-17-2023 ambulatory Kelechi Ball Other [facility] Other Start: 10-17-2023 Office outpatient vi sit 15 minutes Kelechi Ball [facility] Start: 09-22-2023 End: 09-22-2023 ambulatory Kelechi Ball Other [facility] Other Start: 09-22-2023 Office outpatient vi sit 15 minutes Kelechi Ball [facility] Start: 09-22-2023 End: 09-22-2023 Patient encounter procedure [facility] Work Phone: Start: 09-08-2023 End: 09-08-2023 ambulatory Kelechi Ball Other [facility] Other Start: 09-08-2023 Telephone encounter Kelechi Galvan [facility] Start: 08-28-2023 End: 08-28-2023 ambulatory Kelechi Ball Other [facility] Other Start: 08-28-2023 Telephone encounter Kelechi Galvan [facility] Start: 08-26-2023 End: 08-26-2023 ambulatory Kelechi Galvan Other [facility] Other Start: 08-26-2023 Telephone encounter Kelechi GRANDA [facility] Start: 08-22-2023 End: 08-22-2023 ambulatory Kelechi Galvan Other [facility] Other Start: 08-22-2023 Encounter for genera l adult medical examination without abnormal findings Kelechi Galvan [facility] Start: 08-22-2023 Periodic preventive med est patient 40-64yrs Kelechi Galvan [facility] Start: 08-22-2023 End: 08-22-2023 Patient encounter procedure [facility] Work Phone: Start: 05-26-2023 End: 05-26-2023 ambulatory Angélica Swann Other [facility] Other Start: 05-26-2023 Office outpatient vi sit 15 minutes Angélica Swann [facility] Start: 04-18-2023 End: 04-18-2023 ambulatory Kelechi Galvan Other [facility] Other Start: 04-18-2023 Office outpatient vi sit 15 minutes Kelechi Ball [facility] Start: 02-28-2023 End: 02-28-2023 ambulatory Kelechi Galvan Other [facility] Other Start: 02-28-2023 Office outpatient vi sit 15 minutes Kelechi Ball [facility] Start: 01-19-2023 End: 01-19-2023 ambulatory Kelechi Galvan Other [facility] Other Start: 01-19-2023 Telephone encounter Kelechi Galvan [facility] Start: 01-16-2023 End: 01-16-2023 ambulatory Kelechi Galvan Other [facility] Other Start: 01-16-2023 Office outpatient vi sit 25 minutes Kelechi Galvan [facility] Start: 01-11-2023 End: 01-11-2023 Patient encounter procedure SPECTROGRAPH OPERATOR-C Angélica Swann Work Phone: [facility] Work Phone: Start: 01-11-2023 End: 01-11-2023 ambulatory Angélica Swann [facility] Work Phone: Start: 01-11-2023 Office outpatient vi sit 15 minutes Angélica Swann [facility] Start: 01-11-2023 Telephone encounter Kelechi GRANDA [facility] Start: 01-09-2023 Encounter for genera l adult medical examination without abnormal findings DR KELECHI GALVAN [facility] Start: 01-05-2023 End: 01-06-[address] KELECHI GALVAN Facility:[facility] Start: 01-05-2023 End: 01-06-2023 Encounter for general adult medical examination without abnormal findings DR KELECHI GALVAN Facility:[facility] Start: 01-03-2023 End: 01-03-2023 ambulatory Kelechi Galvan Other [facility] Other Start: 01-03-2023 Encounter for genera l adult medical examination without abnormal findings Kelechi Galvan [facility] Start: 01-03-2023 Patient encounter status Conrad Galvan Other [facility] Other Start: 01-03-2023 Telephone encounter Kelechi GRANDA [facility] Start: 12-21-2022 End: 12-22-[address] KELECHI GALVAN Facility:[facility] Start: 12-08-2022 End: 12-09-[address] KELECHI GALVAN Facility:[facility] Start: 11-23-2022 End: 11-23-2022 ambulatory Kelechi Galvan Other [facility] Other Start: 11-23-2022 Telephone encounter Kelechi GRANDA [facility] Start: 11-16-2022 End: 11-17-[address] KELECHI GALVAN Facility:[facility] Start: 11-09-2022 End: 11-24-[address] KELECHI GALVAN Facility:[facility] Start: 11-03-2022 End: 11-04-[address] KELECHI GALVAN Facility:[facility] Start: 10-27-2022 End: 10-28-[address] KELECHI GALVAN [facility] Other Start: 10-27-2022 Telephone encounter [facility] Start: 10-18-2022 End: 10-18-2022 ambulatory Kelechi Galvan Other [facility] Other Start: 10-18-2022 Office outpatient vi sit 25 minutes Kelechi [facility] Start: 10-07-2022 End: 10-07-2022 ambulatory Kelechi Galvan Other [facility] Other Start: 10-07-2022 Telephone encounter [facility] Start: 08-26-2022 Adult health examination Conrad Galvan Other [facility] Other Start: 07-11-2022 End: 07-12-[address] KELECHI GALVAN Facility:[facility] Start: 04-07-2022 End: 04-08-[address] DEANN ELIAS . Facility:[facility] Start: 07-28-2019 Pre-procedure evalua tion check Kelechi Galvan Other [facility] Other Start: 07-17-2018 Gynecological examin ation normal Kelechi Galvan Other [facility] Other Procedures Date Procedure Procedure Detail Performing Clinician Start: 01-11-2023 Plain X-ray of right hand SPECTROGRAPH OPERATOR-C Angélica Swann Work Phone: Start: 01-18-2019 Preoperative cardiov ascular examination Kelechi Galvan Other End: 10-22-2018 Contraception care education Kelechi Galvan Other Depression screening Chuy Galvan Other Ligation of fallopian tube B enavelino Ball Other Screening for malign ant neoplasm of breast Kelechi Ball Other Plan of Treatment Date Care Activity Detail Author Start: 03-09-2023 ambulatory Ambulatory Facility:[facility] Payers Date Payer Category Payer Self-pay 1974 Unknown [id number] 2.16.84 [id number] 1974 Unknown [id number] 2.16.84 [id number] 1974 Unknown [id number] 2.16.84 [id number] 1974 Unknown [id number] 2.16.84 [id number] 1974 Unknown [id number] 2.16.84 [id number] 1974 Unknown [id number] 2.16.84 [id number] 1974 Unknown [id number] 2.16.84 [id number] 1974 Unknown [id number] 2.16.84 [id number] 1974 Unknown [id number] 2.16.84 [id number] 1974 Unknown [id number] 2.16.84 0.1.333114.3.579.2.593 1974 Unknown [id number] 2.16.84 [id number] 1959 Unknown [id number] 2.1 [id number] 1959 Unknown [id number] Medicaid [place] Advantage [id number] Unknown [id number] 2.16.8 [id number] Social History Date Type Detail Facility Unknown if ever smoked [facility] Other Sex Assigned At Sex Assigned At Bir th [facility] Other Start: 1975 Sex Assigned At Female F [facility] Start: 05-16-2018 Tobacco smoking status NHIS Never smoked tobacco (finding) [facility] Clinical Notes 05-31-2011 to 10-20-2023 Note Date & Type Note Facility 10-20-2023 Evaluation note Encounter Date Diagnosis Assessment Notes Oct, Morbid (severe) obesity due to excess calories (ICD-10 - E66.01) [facility] Other 02-06-2024 Evaluation note* Encounter Date Diagnosis Assessment Notes Treatment Notes Treatment Clinical Notes Oct, Primary hypertension (ICD-10 - I10) This patient is instructed to consume a healthy, low-fat, low-salt diet. They are also encouraged to continue exercise to achieve/maintain a normal BMI. Patient is instructed on home BP measurements: - rest for 5 minutes w/o talking.- positioned w/ feet on floor and arm supported.- average best 2/3 readings w/ goal < 135/85.- update office w/ home readings in 2 weeks. Oct, Type 2 diabetes mellitus with hyperglycemia, [...] office visit. Continue regular routine monitoring of A1C, Microalbumin, Dilated eye exam and Foot exam Oct, Morbid (severe) obesity due to excess calories (ICD-10 - E66.01) This patient has been instructed on a low-fat, high-fiber diet. They are instructed to reduce calories, portion sizes and snacks. It is recommended that they exercise for 30 minutes, 3-5 times weekly. Has lost 28 lbs since starting Adipex She was instructed to continue w/ exercise and diet. She was informed that she needs to lose 5% of her body weight over the next 3 months. - estimated to be about 14 lbs Oct, Body mass index [BMI] 50.0-59.9, adult (ICD-10 - Z68.43) [facility] Other 01-12-2024 Evaluation note* Encounter Date Diagnosis Assessment Notes Treatment Notes Treatment Clinical Notes Sep, Primary hypertension (ICD-10 - I10) [...] index [BMI] 50.0-59.9, adult (ICD-10 - Z68.43) [facility] Other 12-29-2023 Evaluation note* Encounter Date Diagnosis Assessment Notes Treatment Notes Treatment Clinical Notes Aug, Prolactinoma (ICD-10 - D35.2) MRI < 10mm, prolactin 80 - 2022 [facility] Other 12-16-2023 Evaluation note* Encounter Date Diagnosis Assessment Notes Treatment Notes Treatment Clinical Notes Aug, Hyperprolactinemia (ICD-10 - E22.1) [facility] Other [id number] Evaluation note* Encounter Date Diagnosis Assessment Notes [...] use, the patient reduces the risk for SC, CVA, HTN, cardiac dysrhythmias and sudden cardiac [...] patient on monthly SBE and yearly mammograms. [facility] Other 09-15-2023 Evaluation note* Encounter Date Diagnosis [...] thoracic region, initial encounter (ICD-10 - S29.019A) [facility] Other 08-08-2023 Evaluation note* Encounter Date Diagnosis Assessment Notes Treatment Notes Treatment Clinical Notes Apr, Sharmin-menopausal (ICD-10 - N95.1) Recommend scheduling appt w/ House Furnishings Supervisor. Apr, Primary hypertension (ICD-10 - I10) This [...] use, the patient reduces the risk for SC, CVA, HTN, cardiac dysrhythmias and sudden cardiac deaths.The patient is also aware of the association between REBA and morning headaches, daytime somnolence, fatigue and obesity, which also has been improved with continued use.The patient is compliant with treatment, wearing the equipment every night for greater than 4 hours.The patient is instructed to continue use of the CPAP for REBA treatment. [facility] Other 06-20-2023 Evaluation note* Encounter Date Diagnosis Assessment Notes Treatment Notes Treatment Clinical Notes Feb, Seborrheic dermatitis of scalp (ICD-10 - L21.9) Keep clean, avoid scratching Stop using Mupirocin Initiate topical steroid ointment Feb, Primary hypertension (ICD-10 - I10) This patient is instructed to consume a healthy, low-fat, low-salt diet. They are also encouraged to continue exercise to achieve/maintain a normal BMI. [facility] Other 05-11-2023 Evaluation note* Encounter Date Diagnosis Assessment Notes Treatment Notes Treatment Clinical Notes January, Type 2 diabetes mellitus with hyperglycemia, without long-term current use of insulin (ICD-10 - E11.65) [facility] Other 05-08-2023 Evaluation note* Encounter Date Diagnosis [...] G47.33) AHI 104 w/ Psat 68%, BiPAP /17, full facial mask This patient is aware of the benefits associated with REBA: With continued use, the patient reduces the risk for SC, CVA, HTN, cardiac dysrhythmias and sudden cardiac [...] visual defects. January, Hyperprolactinemia (ICD-10 - E22.1) [facility] Other 05-03-2023 Evaluation note* Encounter Date Diagnosis Assessment Notes Treatment Notes Treatment Clinical Notes January, REBA (obstructive sleep apnea) (ICD-10 - G47.33) AHI 104 w/ Psat 68%, BiPAP , full facial mask [facility] Other 05-03-2023 Evaluation note* Encounter Date Diagnosis [...] no improvement in 2 to 3 days [facility] Other 04-25-2023 Evaluation note* Encounter Date Diagnosis Assessment Notes Treatment Notes Treatment Clinical Notes Dec, Type 2 diabetes mellitus with hyperglycemia, without long-term current use of insulin (ICD-10 - E11.65) Dec, Primary hypertension (ICD-10 - I10) Dec, Wellness examination (ICD-10 - Z00.00) [facility] Other 03-30-2023 NoteCONSULTATION CONSULTATION DATE: 12/08/2022 TO: [...] this point for her residual pain symptoms.[id number] Evaluation note* Encounter Date Diagnosis Assessment Notes Treatment Notes Treatment Clinical Notes Nov, REBA (obstructive sleep apnea) (ICD-10 - G47.33) AHI 101 w/ Psat 79% [facility] Other 03-15-2023 Evaluation note* Encounter Date Diagnosis Assessment Notes Treatment Notes Treatment Clinical Notes Nov, REBA (obstructive sleep apnea) (ICD-10 - G47.33) AHI 104 w/ Psat 68% [facility] Other 02-23-2023 NotePAIN MANAGEMENT CONSULTATION CONSULTATION DATE: [...] four weeks' time or sooner if needed.[facility] 11-03-2022 NotePAIN MANAGEMENT CONSULTATION CONSULTATION [...] on his response to change in medication.[facility] 10-18-2022 Evaluation note* Encounter Date [...] (ICD-10 - R29.818) Referral for sleep study [facility] Other 07-28-2022 NoteCONSULTATION CONSULTATION DATE: 04/07/2022 HISTORY [...] Patient states understanding and all questions answered.[facility] [id number] History general Narrative - Reported* Type Description Date Medical History hypertension Medical History back pain Medical History degenerative disc disease Medical History Prolactinoma Medical History asthma Surgical History C section 05/31/2011 Surgical History IVF 12/01/2008 Surgical History hysterectomy laps assisted 12-11 007 Surgical History right foot sx (planter) Hospitalization History see above Hospitalization History blood transfusion 09/2014 [facility] Other Evaluation noteNo InformationNort [employer] Other Evaluation noteNo assessment information available [facility] Work Phone: Evaluation note* Diagnosis Onset Date Resolution Status Type 2 diabetes mellitus with hyperglycemia acute COVID-19 noneactive [facility] Work Phone: History general Narrative - [...] see above Hospitalization History blood transfusion 09/2014 [facility] Other Summary Purpose Family History Relationship Condition Age at Onset Recorded Date/T milka father Unknown Malignant neoplasm Unknown Hypertension Unknown Heart disease Unknown Not Specified Malignant neoplasm Unknown History of malignant neoplasm of skin Unk nown Advance Directives Advance Directive Response Recorded Date/ Time Advance Directives No June 28, 2017 2:45pm Advance Directive Response Recorded Date/ Time Advance Directives No June 28, 2017 1:45pm Chief Complaint and Reason for Visit Chief Complaint Wellness 1 Month Follow Up COVID+ Reason for Visit Type 2 diabetes olive itus with hyperglycemia COVID-19 Additional Source Comments REASON FOR VISIT (unrecogniz ed section and content) sleep study4 MONTH FOLLOW UP BS resultsNo InformationNo InformationlabsNo Informationright side pinky/ring finger hurts & right elbow3 month Follow uprefillrash on scalp spreadingHormones/ Thoughts- [phone] in neck and upper backWELLNESSNo Informationlab resultsMR results1 month Follow upadipex reorder1 month Follow up INFORMATION SOURCE (unrecogn ized section and content) DATE CREATED AUTHOR 01/11/2023 [facility] DATE CREATED AUTHOR AUTHOR'S ORGANIZ ATION 01/12/2023 [facility] Care Teams (unrecognized sec tion and content) Team Status: Inactive Member Role Status Dates TRINI Lenz Attending Provider Active Team Status: Active Member Role Status Dates Kelechi Galvan DO Primary Care Provider Active Team Status: Inactive Member Role Status Dates Kelechi Galvan DO Attending Provider Active Sta rt: August 22, 2023 End: August 22, 2023 Team Status: Inactive Member Role Status Dates Kelechi Galvan DO Attending Provider Active Sta rt: September 22, 2023 End: September 22, 2023 Team Status: Inactive Member Role Status Dates Kelechi Galvan DO Primary Care Provide r, Attending Provider Active Start: October 27, 2023 End: October 27, 2023 Goals (unrecognized section and content) Goals may [...] ON THE PRIMARY CLINICAL RECORDS. [facility] [employer] [facility]. provides no warranty or guarantee of the accuracy or completeness of information in this document.
--- NOTE | 2023-11-02 07:52 | P.CN_ITS ---
Consult Note: HPI Data of Consult Patient: known to practice within the last 3 years Requesting Physician: Jeny Manley NP Primary Care Provider: Kelechi Galvan, DO Consult Narrative Reason for consult: f/u Narrative: Marie Gray a pleasant 47 year old female presents for evaluation and management of chronic neck pain. Today pain 1-2/10 without radiculopathy. Patient underwent right and left C5/6 6/7 facet medial branch thermal RFA with 85% improvement in neck pain. Since RFAs patient has noticed increase in headaches, now occurring 2-3x/week. Finds benefit to tizanidine 4mg HS. Patient would like to discuss chronic mid/low back pain, as she previously had benefit to bilateral T10,L1 L2,L3 facet thermal RFA with Dr Briceno 11-16-21. She reports >80% improvement in middle low back pain and functional improvement greater than 18 months from previous ablations. Patient would like to repeat RFAs. cc:: CC: Jeny Manley NP Review of Systems ROS Status of ROS 10 or more systems reviewed and unremark able except as noted in history and below Musculoskeletal Reports: back pain and neck pain PFSH PFSH Medical History Diabetes ?E11.9 - Type 2 diabetes mellitus without complications (ICD-10) HTN (hypertension) ?I10 - Essential (primary) hypertension (ICD-10) In vitro fertilization ?Z31.83 - Encounter for assisted reproductive fertility procedure cycle (ICD- 10) Surgical History History of dilation and curettage ?Z98.890 - Other specified postprocedural states (ICD-10) History of tubal ligation ?Z98.51 - Tubal ligation status (ICD-10) History of hysteroscopy ?Z98.890 - Other specified postprocedural states (ICD-10) Previous section ?Z98.891 - History of uterine scar from previous surgery (ICD-10) History of fasciotomy ?Z98.890 - Other specified postprocedural states (ICD-10) History of laparoscopy ?Z98.890 - Other specified postprocedural states (ICD-10) Meds Home Medications and Allergies Home Medications Medication Instructions Recorded Confirmed Type atenolol 50 mg tablet 50 mg PO DAILY 03/09/23 10/03/23 History dapagliflozin propanediol 5 mg 5 mg PO DAILY 03/09/23 10/03/23 History tablet (Farxiga) dulaglutide 4.5 mg/0.5 mL 4.5 mg subcut QWEEK 03/09/23 10/03/23 History subcutaneous pen injector (Trulicity) furosemide 20 mg tablet 20 mg PO DAILY 03/09/23 10/03/23 History lisinopril 5 mg tablet 5 mg PO DAILY 03/09/23 10/03/23 History metformin 1,000 mg tablet 1,000 mg PO BID 03/09/23 10/03/23 History naproxen 500 mg tablet 500 mg PO BID 03/09/23 10/03/23 History potassium chloride 10 mEq 10 meq PO DAILY 03/09/23 10/03/23 History tablet,extended release (Klor-Con) tizanidine 4 mg tablet (Zanaflex) 4 mg PO DAILY PRN spasm 03/09/23 10/03/23 History naproxen 500 mg tablet 500 mg PO BID PRN pain #60 tabs 05/31/23 10/03/23 Rx Allergies Allergy/AdvReac Type Severity Reaction Status Date / Time Penicillins Allergy Rash Verified 10/03/23 07:06 Exam Constitutional Documenting provider has reviewed patient's vital signs: yes Common normals: no apparent distress, oriented x3, healthy appearing, alert and well nourished General appearance: cooperative Nutritional appearance: obese HENMT Common normals: normocephalic, hearing grossly normal bilaterally and moist oral mucous membranes Head and scalp: normocephalic Eye Common normals: PERRL Pupil: PERRL Neck & C-Spine Common normals: full ROM General: normal visual inspection Cervical spine: paracervical muscle tenderness Chest Common normals: inspection of chest normal Respiratory Common normals: normal respiratory effort, no retractions and no use of accessory muscles Back & Pelvis Thoracic spine/upper back: ROM limited and pain with ROM Lumbar spine/lower back: ROM limited and pain with ROM Other: positive facet loading, predominately axial back pain Extremity Common normals: normal to inspection and full ROM Neuro Common normals: oriented x3, CN's II-XII intact bilaterally, moves all extremities, no focal motor deficits, no sensory deficits noted and deep tendon reflexes 2+ bilaterally Sensorium/orientation: alert Motor exam: strength 5/5 throughout and no movement abnormalities noted Psych Common normals: mental status grossly normal, thought process normal, cooperative, affect normal, speech normal and activity/motor behavior normal Speech: normal speech Thought process: normal thought process Results Additional Findings Additional findings: I have checked an [place]AR[place] report on this patient today and there are no aberrancies noted in the prescribing history.?? A drug screen was completed and reviewed within the last year, and if there has not been a drug screen completed we ordered one today to monitor higher risk, state monitored pain medication use. As part of providing excellent, safe, comprehensive care, the following was completed at our patient's visit: 1. A medication reconciliation and review to ensure accurate knowledge of current/active medications, including asking our patients to inform us about any [id number]-buu-gqzweno medications or herbal remedies/nutritional s upplements/alternative remedies. 2. A review to specifically ensure our patients have had annual screening for: elevated body mass index (BMI), tobacco use, screening for depression, and screening for unhealthy alcohol use. When screening is concerning, patients are provided with education and the specific recommendation to discuss the concerning health issue and treatment options with their primary care provider. Assessment and Plan Assessment and Plan (1) Cervical spondylosis: Assessment and Plan: I (2) Thoracic spondylosis: Assessment and Plan: I have reviewed the imaging of the cervical spine and no red flags were identified.? The imaging reveals radiographic findings consistent with thoracic/lumbar spondylosis We discussed the risks and benefits of the procedure with the patient, and we are NOT planning on using sedation as outlined in the guidelines from Medicare unless there is a documented reason that sedation would be strongly recommended.?? The procedure will be completed with fluoroscopic guidance.? (3) Lumbar spondylosis: (4) Muscle spasm: Plan continue current medications repeat bilateral T12-L1 L2-3 RFA with 10mg PO valium 30mins prior to procedure f/u 1 month after
== END 2023-11-02 07:35 | disposition home or self-care (01) ==
LOC: PM 07:35
PROVIDERS: PCP Internal Medicine; Visit Provider Nurse Practitioner
DX: M47.814 Spondylosis without myelopathy or radiculopathy, thoracic region (principal); M47.812 Spondylosis without myelopathy or radiculopathy, cervical region; M47.816 Spondylosis without myelopathy or radiculopathy, lumbar region; M62.838 Other muscle spasm
CPT/HCPCS: G0463

== ENCOUNTER 2023-11-27 07:43 | Day surgery (SDC) | payer OTHER, SELFPAY ==
--- OUTSIDE RECORDS SUMMARY | 2023-11-27 07:45 | XMS_ITS | CCD ---
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 Name Role Phone Kelechi Galvan Unavailable COLE, [...] Unavailable COLE, DR CULVER Admitting Unavailable [place], DR ANGELA Orellana Consulting Unavailable COLE, DR [...] Penicillin G Drug Allergy pt doesn't remember [facility] Other (2 sources) Penicillins Drug allergy (disorder) 3 [facility] Repository (10 sources) Doxycycline Drug Allergy 4 Unknown, Unknown Reaction [facility] (2 sources) Penicillin Drug Allergy Unknown [facility] Other (9 sources) Penicillin G Benzathine & Proc Drug allergy 7 Unknown [facility] Other (2 sources) patient allergy list reviewed by nurse or physicia Propensity to adverse reactions 4 Comment:Done [facility] Other (2 sources) Allergies Reconciled Propensity to adverse reactions Unknown [facility] Other (1 source) Penicillin G Benzathine Allergy to substance 4 Unknown Reaction [facility] Medications Current Medications Medication Drug Class(es) Dates [...] for 5 days orally per package directions; SwypeShield Ultra - (8 sources) SwypeShield Ultra - USE 1 STRIP TO CHECK [...] eye(s) three times daily as needed Maxitrol 3.5-61008-3.1 2 drops into affected eye Ophthalmic Three times a day for 7 days Sep, Not-Taking/PRN Start: 09-13-2020 take 2 drop(s) into the eye(s) three times daily Maxitrol 3.5-68016-7.1 2 drops into affected eye Ophthalmic Three times a day for 7 days Sep, Not-Taking Start: 09-13-2020 take 2 drop(s) into the eye(s) three times daily Maxitrol 3.5-63162-9.1 2 drops into affected eye Ophthalmic Three [...] sources) High risk drug monitoring status; 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: [snf (current) use of opiate analgesic] Episodic Other [...] XR hand RT min 3V* [facility] [place] [address] XRay Report Signed Patient: Jing Gray MR#: [id number] 1 : 1975 Acct:[id number] Age/Sex: 47 / F ADM Date: 01/11/23 Loc: XDUCLY Room: Type: [facility] Attending Dr: Angélica FELIZ Copies to: [...] Blake Marino M.D.01/11/2023 6:08 PM Dictation Location: [place] [address] Transcribed By: [facility] 01/11/231807 Dictated By: Blake Marino DO 01/11/231806 Signed By: 01/11/231807 Normal [facility] XR hand RT min 3V* [facility] [employer] Other XR hand RT min 3V* [facility] [employer] Other XR hand RT min 3V* [address] [place] [address] [employer] Other XR hand RT min 3V* [place] [address] [facility] Other XR hand RT min 3V* XRay Report [facility] Other XR hand RT min 3V* Signed [facility] Other XR hand RT min 3V* Patient: Jing Gray MR#: [id number] [facility] Other XR hand RT min 3V* 1 [facility] Other XR hand RT min 3V* : 1975 Acct:[id number] [facility] Other XR hand RT min 3V* Age/Sex: 47 / F ADM Date: 01/11/23 [facility] Other XR hand RT min 3V* Loc: XDUCLY Room: Type: [facility] Other XR hand RT min 3V* Attending Dr: Angélica FELIZ [facility] Other XR hand RT min 3V* Copies to: TRINI Alvarado [facility] Other XR hand RT min 3V* Ordering Provider: TRINI Alvarado [facility] Other XR hand RT min 3V* Date of Service: 01/11/23 [facility] Other XR hand RT min 3V* XR/XR hand RT min 3V*: RIGHT HAND INJURY [facility] Other XR hand RT min 3V* 3 views right hand plain film [facility] Other XR hand RT min 3V* COMPARISON: None [facility] Other XR hand RT min 3V* HISTORY: Fourth and fifth metacarpal injury [facility] Other XR hand RT min 3V* ACUTE FINDINGS: None [facility] Other XR hand RT min 3V* DEGENERATIVE CHANGE: Unremarkable [facility] Other XR hand RT min 3V* SOFT TISSUE FINDINGS: Unremarkable [facility] Other XR hand RT min 3V* JOINT EFFUSION: None [facility] Other XR hand RT min 3V* POSTOP CHANGES: None [facility] Other XR hand RT min 3V* BONY MINERALIZATION: Adequate [facility] Other XR hand RT min 3V* XR/XR hand RT min 3V* [facility] Other XR hand RT min 3V* IMPRESSION: No acute findings [facility] Other XR hand RT min 3V* Impression dictated by: Blake Marino M.D.01/11/2023 6:08 PM [facility] Other XR hand RT min 3V* Dictation Location: [place] [address] [facility] Other XR hand RT min 3V* Transcribed By: DILCIA 01/11/23 [address] [employer] Other XR hand RT min 3V* Dictated By: Blake Marino DO 01/11/231806 [facility] [employer] Other XR hand RT min 3V* Signed By: [place] [employer] Other XR hand RT min 3V* 01/11/231807 [facility] [employer] Other PROLACTINon 01-06-2023 Prolactin 34.5 ng/mL Critically high 4.8-23.3 [facility] Comment on above: Performed By: #### P ROLAC #### [facility] Laboratory [address] [place] [address] [address] Digna Thomas CBC AUTO DIFFon 01-05-2023 BASO # 0.1 103/ul Normal 0.0-0.1 [facility] Comment on above: Performed By: #### C BC ####[facility] Ghkpspkgqy220[address] [place] [address]Dr. Digna Thomas Basophils/100 WBC (Bld) 0.8 % Normal 0.2-2.0 [facility] Comment on above: Performed By: #### C BC ####[facility] Uxyfcolapl3[address] [place] [address]Dr. Digna Thomas EO # 0.5 103/ul Normal 0.0-0.7 [facility] Comment on above: Performed By: #### C BC ####[facility] Psewcfqvok9[address] [place] [address]Dr. Digna Thomas Eosinophils/100 WBC (Bld) 5.0 % Normal 0.9-7.0 [facility] Comment on above: Performed By: #### C BC ####[facility] Xopscwp[address] [place], [place] [address]Dr. Digna Thomas Erythrocyte distribution width (RBC) [Ratio] 13.0 % Normal 11.0-15.0 [facility] Comment on above: Performed By: #### C BC ####[facility] Askucunmmb[address] [place], [place] [address]Dr. Digna Thomas Hematocrit (Bld) [Volume fraction] 44.6 % Normal 36.0-48.0 [facility] Comment on above: Performed By: #### C BC ####[facility] Lqfjujdrbu8330 [place] [address]Dr. Digna Thomas Hemoglobin (Bld) [Mass/Vol] 14.4 g/dL Normal 12.0-16.0 [facility] Comment on above: Performed By: #### C BC ####[facility] Nkrsknthdv[address] [place], [place] [address]Dr. Digna Thomas IG # 0.05 10e3/ul Critically high 0.00-0.03 [facility] Comment on above: Performed By: #### C BC ####[facility] Mqamdjqbfx[address] [place], [place] [address]Dr. Digna Thomas IG % 0.5 % Normal 0.0-0.5 [facility] Comment on above: Performed By: #### C BC ####[facility] Hwffzoakdl[address] [place], [place] [address]Dr. Digna Thomas LYMPH # 2.3 103/ul Normal 1.2-3.8 [facility] Comment on above: Performed By: #### C BC ####[facility] Iguofnukfk[address] [place], [place] [address]Dr. Digna Thomas Lymphocytes/100 WBC (Bld) 23.0 % Normal 20.5-60.0 [facility] Comment on above: Performed By: #### C BC ####[facility] Nmmaulcvcc[address] [place], [place] [address]Dr. Digna Thomas MANUAL DIFF REQ NO Normal [facility] Comment on above: Performed By: #### C BC ####[facility] Khgajqqwwm[address] [place], [place] [address]Dr. Digna Thomas MCH (RBC) [Entitic mass] 28.3 pg Normal 26.7-34.0 [facility] Comment on above: Performed By: #### C BC ####[facility] Byoxhntzuq[address] [place], [place] [address]Dr. Digna Thomas MCHC (RBC) [Mass/Vol] 32.3 g/dL Normal 29.9-35.2 [facility] Comment on above: Performed By: #### C BC ####[facility] C[address]kmhq[address] [place] [address]DrNile Digna William MCV (RBC) [Entitic vol] 87.8 fL Normal 81.0-99.0 [facility] Comment on above: Performed By: #### C BC ####[facility] O[address]cct[address] [place], [place] [address]DrNile Thomas MONO # 0.8 103/ul Normal 0.3-0.8 [facility] Comment on above: Performed By: #### C BC ####[facility] Bscztpawtc[address] [place], [place] [address]DrNile Thomas Monocytes/100 WBC (Bld) 7.9 % Normal 1.7-12.0 [facility] Comment on above: Performed By: #### C BC ####[facility] [id number] [place], [place] [address]DrNile Thomas NEUT # 6.3 103/ul Normal 1.4-6.5 [facility] Comment on above: Performed By: #### C BC ####[facility] Lgfphdgyto[address] [place], [place] [address]DrNile Anajs Thomas Neutrophils/100 WBC (Bld) 62.8 % Normal 43.0-75.0 [facility] Comment on above: Performed By: #### C BC ####[facility] Poouzrmeot[address] [place], [place] [address]DrNile Thomas Platelet mean volume (Bld) [Entitic vol] 9.9 fL Normal 9.5-13.5 [facility] Comment on above: Performed By: #### C BC ####[facility] Bzbrs[address]ora[address] [place], [place] [address]DrNile Thomas PLT 223 103/ul Normal 150-450 [facility] Comment on above: Performed By: #### C BC ####[facility] Iauexkqacs[address] [place], [place] [address]DrNile Thomas RBC 5.08 106/ul Normal 4.20-5.40 [facility] Comment on above: Performed By: #### C BC ####[facility] Ed[address] [place], [place] [address]TrDr. Digna Thomas WBC 10.0 103/ul Normal 4.0-11.0 [facility] Comment on above: Performed By: #### C BC ####[facility] Mgdykvgpri33[address] [place], [place] [address]BaDr. Digna Thomas LIPID PROFILEon 01-05-2023 CHOL-HDL RATIO NORM SEE BELOW Normal [facility] Comment on above: Result Comment: 3.3 - 4.4 LOW RISK 4.4 - 7.1 AVERAGE RISK 7.1 - 11.0 MODERATE RISK >11.0 HIGH RISK Performed By: #### B MP, TSH, LIPID #### [facility] Laboratory [address] [place] [address] [address] Digna Thomas Cholesterol [Mass/Vol] 179 mg/dL Normal <=200 [facility] Comment on above: Performed By: #### B MP, TSH, LIPID #### [facility] Laboratory [address] [place] [address] [address] Digna Thomas Cholesterol in HDL [Mass/Vol] 55 mg/dL Normal 40-60 [facility] Comment on above: Performed By: #### B MP, TSH, LIPID #### [facility] Laboratory [address] [place] [address] [address] Digna Thomas Cholesterol in LDL [Mass/Vol] 103.8 mg/dL Normal [facility] Comment on above: Performed By: #### B MP, TSH, LIPID #### [facility] Laboratory [address] [place] [address] [address] Digna Thomas Cholesterol.total/Ch olesterol in HDL [Mass ratio] 3.3 {ratio} Normal [facility] Comment on above: Performed By: #### B MP, TSH, LIPID #### [facility] Laboratory [address] [place] [address] [address] Digna Thomas HDL NORMAL > or = 60 mg/dl - LOW CARDIOVASCULAR RISK <40 mg/dl - HIGH CARDIOVASCULAR RISK Normal [facility] Comment on above: Performed By: #### B MP, TSH, LIPID #### [facility] Laboratory [address] [place] [address] [address] Digna Thomas LDL CALC NORMAL SEE BELOW Normal [facility] Comment on above: Result Comment: <100 mg/dl OPTIMAL 100 - 129 mg/dl NEAR OR ABOVE OPTIMAL 130 - 159 mg/dl BORDERLINE HIGH 160 - 189 mg/dl HIGH >190 mg/dl VERY HIGH Performed By: #### B MP, TSH, LIPID #### [facility] Laboratory [address] [place] [address] [address] Digna Thomas Triglyceride [Mass/Vol] 101 mg/dL Normal <=150 [facility] Comment on above: Performed By: #### B MP, TSH, LIPID #### [facility] Laboratory [address] [place] [address] Dr. Digna Thomas VLDL CALC 20.2 mg/dL Normal [facility] Comment on above: Performed By: #### B MP, TSH, LIPID #### [facility] Laboratory [address] [place] [address] [address] Digna Thomas PROF CHEM 8 (BAS METB)on Anion gap [Moles/Vol] 13.3 mmol/L Normal [facility] Comment on above: Performed By: #### B MP, TSH, LIPID #### [facility] Laboratory [address] [place] [address] [address] Digna Thomas Calcium [Mass/Vol] 9.4 mg/dL Normal 8.5-10.1 [facility] Comment on above: Performed By: #### B MP, TSH, LIPID #### [facility] Laboratory [address] [place] [address] [address] Digna Thomas Chloride [Moles/Vol] 104 mmol/L Normal 98-107 [facility] Comment on above: Performed By: #### B MP, TSH, LIPID #### [facility] Laboratory [address] [place] [address] Dr. Digna Thomas CO2 [Moles/Vol] 27.1 mmol/L Normal 21.0-32.0 [facility] Comment on above: Performed By: #### B MP, TSH, LIPID #### [facility] Laboratory [address] [place] [address] [address] Digna Thomas Creatinine [Mass/Vol] 0.71 mg/dL Normal 0.55-1.02 [facility] Comment on above: Performed By: #### B MP, TSH, LIPID #### [facility] Laboratory [address] [place] [address] [address] Digna Thomas EGFR-AF BERMUDIAN >60 Normal >=60 [facility] Comment on above: Performed By: #### B MP, TSH, LIPID #### [facility] Laboratory [address] [place] [address] [address] Digna Thomas EGFR-NON AF BERMUDIAN >60 Normal >=60 [facility] Comment on above: Performed By: #### B MP, TSH, LIPID #### [facility] Laboratory [address] [place] [address] [address] Digna Thomas Glucose [Mass/Vol] 163 mg/dL Critically high 74-106 [facility] Comment on above: Performed By: #### B MP, TSH, LIPID #### [facility] Laboratory [address] [place] [address] [address] Digna Thomas Potassium [Moles/Vol] 4.4 mmol/L Normal 3.5-5.1 [facility] Comment on above: Performed By: #### B MP, TSH, LIPID #### [facility] Laboratory [address] [place] [address] [address] Digna Thomas Sodium [Moles/Vol] 140 mmol/L Normal 136-145 [facility] Comment on above: Performed By: #### B MP, TSH, LIPID #### [facility] Laboratory [address] [place] [address] [address] Digna Thomas Urea nitrogen [Mass/Vol] 15.0 mg/dL Normal 7.0-18.0 [facility] Comment on above: Performed By: #### B MP, TSH, LIPID #### [facility] Laboratory [address] [place] [address] [address] Digna Thomas Urea nitrogen/Creatinine [Mass ratio] 21.1 mg/mg Normal [facility] Comment on above: Performed By: #### B MP, TSH, LIPID #### [facility] Laboratory [address] [place] [address] [address] Digna Thomas TSHon 01-05-2023 TSH 3.955 uIU/mL Critically high 0.358-3.740 [facility] Comment on above: Performed By: #### B MP, TSH, LIPID #### [facility] Laboratory [address] [place] [address] [address] Digna Thomas XR CSPINE MIN 4 [...] FELIPE TRINH Date: 2022-11-04 08:02 Normal [facility] GLYCOHEMOGLOBIN A1Con 2022 ADA RECOMMENDATION SEE BELOW Normal [facility] Comment on above: Result Comment: ADA RECOMMENDED LIMIT 4.0 - 6.0 ADA THERAPEUTIC TARGET < 7.0 ACTION SUGGESTED > 7.0 Performed By: #### A 1C ####[facility] [address] [place] [address]Dr. Digna Thomas Glucose [Mass/Vol] 166 mg/dL Normal [facility] Comment on above: Performed By: #### A 1C ####[facility] Sm[address]plzaz[address] [place] [address]DrNile Thomas HbA1c (Bld) [Mass fraction] 7.4 % Critically high 4.5-6.2 [facility] Comment on above: Performed By: #### A 1C ####[facility] Aerhgtrncl9[address] [place] [address]DrNile Thomas PROLACTINon 07-12-2022 Prolactin 48.0 ng/mL Critically high 4.8-23.3 [facility] Comment on above: Performed By: #### P ROLAC #### [facility] Laboratory [address] [place], [place] [address] Dr. Digna Thomas CBC AUTO DIFFon 07-11-2022 BASO # 0.1 103/ul Normal 0.0-0.1 [facility] Comment on above: Performed By: #### C BC ####[facility] [address] [place] [address]Dr. Digna Thomas Basophils/100 WBC (Bld) 0.8 % Normal 0.2-2.0 [facility] Comment on above: Performed By: #### C BC ####[facility] [address]oiu[address] [place] [address]DrNile Thomas EO # 0.7 103/ul Normal 0.0-0.7 [facility] Comment on above: Performed By: #### C BC ####[facility] Jhfsvcqupk[address] [place] [address]Dr. Digna Thomas Eosinophils/100 WBC (Bld) 5.8 % Normal 0.9-7.0 [facility] Comment on above: Performed By: #### C BC ####[facility] Gtvvjtvurh[address] [place] [address]Dr. Digna Thomas Erythrocyte distribution width (RBC) [Ratio] 12.7 % Normal 11.0-15.0 [facility] Comment on above: Performed By: #### C BC ####[facility] X[address]dya[address] [place] [address]Dr. Digna Thomas Hematocrit (Bld) [Volume fraction] 45.4 % Normal 36.0-48.0 [facility] Comment on above: Performed By: #### C BC ####[facility] Rgleyeyjtm[address] [place] [address]Dr. Digna Thomas Hemoglobin (Bld) [Mass/Vol] 15.3 g/dL Normal 12.0-16.0 [facility] Comment on above: Performed By: #### C BC ####[facility] [address] [place], [place] [address]DrNile Thomas IG # 0.04 10e3/ul Critically high 0.00-0.03 [facility] Comment on above: Performed By: #### C BC ####[facility] Mdrnyhqjnj[address] [place] [address]Dr. Digna Thomas IG % 0.3 % Normal 0.0-0.5 [facility] Comment on above: Performed By: #### C BC ####[facility] Nclocrycbj[address] [place] [address]Dr. Digna Thomas LYMPH # 3.3 103/ul Normal 1.2-3.8 [facility] Comment on above: Performed By: #### C BC ####[facility] Izqpsapeng5[address] [place] [address]Dr. Digna Thomas Lymphocytes/100 WBC (Bld) 28.1 % Normal 20.5-60.0 [facility] Comment on above: Performed By: #### C BC ####[facility] Jhgmciqtkm7[address] [place] [address]Dr. Digna Thomas MANUAL DIFF REQ NO Normal [facility] Comment on above: Performed By: #### C BC ####[facility] Rzsduvqssx9[address] [place] [address]Dr. Digna Thomas MCH (RBC) [Entitic mass] 29.2 pg Normal 26.7-34.0 [facility] Comment on above: Performed By: #### C BC ####[facility] Jjnzzkltec[address] [place] [address]Dr. Digna Thomas MCHC (RBC) [Mass/Vol] 33.7 g/dL Normal 29.9-35.2 [facility] Comment on above: Performed By: #### C BC ####[facility] Mdhubolukq[address] [place] [address]Dr. Digna Thomas MCV (RBC) [Entitic vol] 86.6 fL Normal 81.0-99.0 [facility] Comment on above: Performed By: #### C BC ####[facility] Nwooardkyp[address] [place] [address]Dr. Digna William MONO # 0.8 103/ul Normal 0.3-0.8 [facility] Comment on above: Performed By: #### C BC ####[facility] Jkurwntmee[address] [place] [address]Dr. Digna Thomas Monocytes/100 WBC (Bld) 6.4 % Normal 1.7-12.0 [facility] Comment on above: Performed By: #### C BC ####[facility] Chqpyfnhoe49[address] [place] [address]Dr. Digna Thomas NEUT # 6.9 103/ul Critically high 1.4-6.5 [facility] Comment on above: Performed By: #### C BC ####[facility] Mqhcvvpvqh5698 [place] [address]Dr. Digna Thomas Neutrophils/100 WBC (Bld) 58.6 % Normal 43.0-75.0 [facility] Comment on above: Performed By: #### C BC ####[facility] Ggdiigpctd08[address] [place] [address]Dr. Digna Thomas Platelet mean volume (Bld) [Entitic vol] 10.0 fL Normal 9.5-13.5 [facility] Comment on above: Performed By: #### C BC ####[facility] Znatlrinwe3692 [place] [address]Dr. Digna Thomas PLT 242 103/ul Normal 150-450 [facility] Comment on above: Performed By: #### C BC ####[facility] Fmjvqyzfgy3543 [place] [address]Dr. Digna Thomas RBC 5.24 106/ul Normal 4.20-5.40 [facility] Comment on above: Performed By: #### C BC ####[facility] Nxgcqdbdwd4506 [place] [address]Dr. Digna Thomas WBC 11.8 103/ul Critically high 4.0-11.0 [facility] Comment on above: Performed By: #### C BC ####[facility] Uocepkaocl[address] [place] [address]Dr. Digna Thomas GLYCOHEMOGLOBIN A1Con 2021 ADA RECOMMENDATION SEE BELOW Normal [facility] Comment on above: Result Comment: ADA RECOMMENDED LIMIT 4.0 - 6.0 ADA THERAPEUTIC TARGET < 7.0 ACTION SUGGESTED > 7.0 Performed By: #### A 1C ####[facility] Zeveywqexn[address] [place] [address]Dr. Digna Thomas Glucose [Mass/Vol] 183 mg/dL Normal [facility] Comment on above: Performed By: #### A 1C ####[facility] Uhczvnccth8349 [place] [address]Dr. Digna Thomas HbA1c (Bld) [Mass fraction] 8.0 % Critically high 4.5-6.2 [facility] Comment on above: Performed By: #### A 1C ####[facility] Zqzkeycwzm[address] [place] [address]Dr. Digna Thomas LIPID PROFILEon 07-11-2022 CHOL-HDL RATIO NORM SEE BELOW Normal [facility] Comment on above: Result Comment: 3.3 - 4.4 LOW RISK 4.4 - 7.1 AVERAGE RISK 7.1 - 11.0 MODERATE RISK >11.0 HIGH RISK Performed By: #### B MP, LIPID, TSH ####[facility] Lyaaeukhoq[address] [place] [address]Dr. Digna Thomas Cholesterol [Mass/Vol] 161 mg/dL Normal <=200 [facility] Comment on above: Performed By: #### B MP, LIPID, TSH ####[facility] Ufmdtrnwoi[address] [place] [place] [id number]. Digna Thomas Cholesterol in HDL [Mass/Vol] 51 mg/dL Normal 40-60 [facility] Comment on above: Performed By: #### B MP, LIPID, TSH ####[facility] [id number] [place] [address]Dr. Digna Thomas Cholesterol in LDL [Mass/Vol] 86.2 mg/dL Normal [facility] Comment on above: Performed By: #### B MP, LIPID, TSH ####[facility] [id number] [place] [id number]. Digna Thomas Cholesterol.total/Ch olesterol in HDL [Mass ratio] 3.2 {ratio} Normal [facility] Comment on above: Performed By: #### B MP, LIPID, TSH ####[facility] [id number] [place] [id number]. Digna Thomas HDL NORMAL > or = 60 mg/dl - LOW CARDIOVASCULAR RISK <40 mg/dl - HIGH CARDIOVASCULAR RISK Normal [facility] Comment on above: Performed By: #### B MP, LIPID, TSH ####[facility] [id number] [place] [address]Dr. Digna Thomas LDL CALC NORMAL SEE BELOW Normal [facility] Comment on above: Result Comment: <100 mg/dl OPTIMAL 100 - 129 mg/dl NEAR OR ABOVE OPTIMAL 130 - 159 mg/dl BORDERLINE HIGH 160 - 189 mg/dl HIGH >190 mg/dl VERY HIGH Performed By: #### B MP, LIPID, TSH ####[facility] [id number] [place] [address]Dr. Digna Thomas Triglyceride [Mass/Vol] 119 mg/dL Normal <=150 [facility] Comment on above: Performed By: #### B MP, LIPID, TSH ####[facility] [id number] [place] [address]Dr. Digna Thomas VLDL CALC 23.8 mg/dL Normal [facility] Comment on above: Performed By: #### B MP, LIPID, TSH ####[facility] [id number] [place] [address]Dr. Digna Thomas MG MAMM SCREEN 3D JANE CADon 07-11-2022 MG MAMM SCREEN 3D JANE CAD Patient: JING GRAY Exam Date: 07/11/2022 : 1975 Gender:F Ordering : DR KELECHI GALVAN D.O. Admission #: [id number] Family : Order #: [id number] CLICK HERE TO VIEW EXAM RADIOLOGY REPORT [...] bladder cancer at age 51. LOCATION: [facility] BREAST COMPOSITION: Scattered areas fibroglandular density. FINDINGS: [...] Cagle MD on 07/11/2022 at 10:14 Normal [facility] MICROALBUMIN, RAND URon 10-3 mALB 10.1 mg/L Normal <=30.0 [facility] Comment on above: Performed By: #### M ALBR #### [facility] Laboratory [address] [place] [address] [address] Digna Thomas PROF CHEM 8 (BAS METB)on Anion gap [Moles/Vol] 10.6 mmol/L Normal [facility] Comment on above: Performed By: #### B MP, LIPID, TSH ####[facility] [id number] [place] [id number]. Digna Thomas Calcium [Mass/Vol] 9.3 mg/dL Normal 8.5-10.1 [facility] Comment on above: Performed By: #### B MP, LIPID, TSH ####[facility] [id number] [place] [id number]. Digna Thomas Chloride [Moles/Vol] 99 mmol/L Normal 98-107 [facility] Comment on above: Performed By: #### B MP, LIPID, TSH ####[facility] [id number] [place] [id number] Thomas CO2 [Moles/Vol] 28.3 mmol/L Normal 21.0-32.0 [facility] Comment on above: Performed By: #### B MP, LIPID, TSH ####[facility] [id number] [place] [id number]. Digna Thomas Creatinine [Mass/Vol] 0.74 mg/dL Normal 0.55-1.02 [facility] Comment on above: Performed By: #### B MP, LIPID, TSH ####[facility] [id number] [place] [id number]. Digna Thomas EGFR-AF BERMUDIAN >60 Normal >=60 [facility] Comment on above: Performed By: #### B MP, LIPID, TSH ####[facility] [id number] [place] [id number]. Digna Thomas EGFR-NON AF BERMUDIAN >60 Normal >=60 [facility] Comment on above: Performed By: #### B MP, LIPID, TSH ####[facility] [id number] [place] [id number]. Digna Thomas Glucose [Mass/Vol] 190 mg/dL Critically high 74-106 T [facility] Comment on above: Performed By: #### B MP, LIPID, TSH ####[facility] [id number] [place] [id number]. Digna Thomas Potassium [Moles/Vol] 3.9 mmol/L Normal 3.5-5.1 [facility] Comment on above: Performed By: #### B MP, LIPID, TSH ####[facility] [id number] [place] [id number]. Digna Thomas Sodium [Moles/Vol] 134 mmol/L Critically low 136-145 Th [facility] Comment on above: Performed By: #### B MP, LIPID, TSH ####[facility] [id number] [place] [id number]. Digna Thomas Urea nitrogen [Mass/Vol] 13.0 mg/dL Normal 7.0-18.0 [facility] Comment on above: Performed By: #### B MP, LIPID, TSH ####[facility] [id number] [place] [id number]. Anajs William Urea nitrogen/Creatinine [Mass ratio] 17.6 mg/mg Normal [facility] Comment on above: Performed By: #### B MP, LIPID, TSH ####[facility] [id number] [place], [place] [address]RqDr. Digna Thomas TSHon 07-11-2022 TSH 4.084 uIU/mL Critically high 0.358-3.740 [facility] Comment on above: Performed By: #### B MP, LIPID, TSH #### [facility] Laboratory [address] [place], [place] [address] Dr. Digna Thomas Vital Signs Date Time Vital Sign Value Performing Clinician Facility 10-17-2023 09:00-0500 Body height 165.1 cm Kelechi Ball Other [facility] Other 10-17-2023 09:00-0500 Body mass index (BMI) [Ratio] 48.49 kg/m2 Kelechi Ball Other [facility] Other 10-17-2023 09:00-0500 Body weight 132.18 kg Kelechi Ball Other [facility] Other 10-17-2023 09:00-0500 Diastolic blood pressure 88 mm[Hg] Kelechi Ball Other [facility] Other 10-17-2023 09:00-0500 Respiratory rate 12 /min Kelechi Ball Other [facility] Other 10-17-2023 09:00-0500 Systolic blood pressure 138 mm[Hg] Kelechi Ball Other [facility] Other 09-22-2023 09:00-0500 Body height 165.1 cm Kelechi Ball Other [facility] 09-22-2023 09:00-0500 Body mass index (BMI) [Ratio] 50.25 kg/m2 Kelechi Ball Other [facility] Other 09-22-2023 09:00-0500 Body weight 136.99 kg Kelechi Ball Other [facility] Other 09-22-2023 09:00-0500 Body weight 136.98 kg [facility] 09-22-2023 09:00-0500 Diastolic blood pressure 85 mm[Hg] Kelechi Ball Other [facility] 09-22-2023 09:00-0500 Respiratory rate 12 /min Kelechi Ball Other [facility] Other 09-22-2023 09:00-0500 Systolic blood pressure 136 mm[Hg] Kelechi Ball Other [facility] 08-22-2023 08:30-0500 Body height 165.1 cm Kelechi Ball Other [facility] 08-22-2023 08:30-0500 Body mass index (BMI) [Ratio] 52.95 kg/m2 Kelechi Ball Other [facility] Other 08-22-2023 08:30-0500 Body weight 144.34 kg Kelechi Ball Other [facility] Other 08-22-2023 08:30-0500 Body weight 144.33 kg [facility] 08-22-2023 08:30-0500 Diastolic blood pressure 75 mm[Hg] Kelechi Ball Other [facility] 08-22-2023 08:30-0500 Respiratory rate 12 /min Kelechi Ball Other [facility] Other 08-22-2023 08:30-0500 Systolic blood pressure 115 mm[Hg] Kelechi Ball Other [facility] 05-26-2023 09:40-0400 Body height 165.1 cm Angélica Swann Other [facility] Other 05-26-2023 09:40-0400 Body mass index (BMI) [Ratio] 51.88 kg/m2 Angélica Mcqueenmond Other [facility] Other 05-26-2023 09:40-0400 Body temperature 98 [degF] Angélica Mcqueenmond Other [facility] Other 05-26-2023 09:40-0400 Body weight 141.43 kg Angélica Swann Other [facility] Other 05-26-2023 09:40-0400 Diastolic blood pressure 68 mm[Hg] Angélica Mcqueenmond Other [facility] Other 05-26-2023 09:40-0400 Respiratory rate 18 /min Angélica Swann Other [facility] Other 05-26-2023 09:40-0400 SaO2% (BldA) [Mass fraction] 96 % Angélica Swann Other [facility] Other 05-26-2023 09:40-0400 Systolic blood pressure 110 mm[Hg] Angélica Mcqueenmond Other [facility] Other 02-28-2023 13:15-0400 Body height 165.1 cm Kelechi Ball Other [facility] Other 02-28-2023 13:15-0400 Body mass index (BMI) [Ratio] 52.55 kg/m2 Kelechi Ball Other [facility] Other 02-28-2023 13:15-0400 Body weight 143.25 kg Kelechi Ball Other [facility] Other 02-28-2023 13:15-0400 Diastolic blood pressure 77 mm[Hg] Kelechi Ball Other [facility] Other 02-28-2023 13:15-0400 Respiratory rate 12 /min Kelechi Ball Other [facility] Other 02-28-2023 13:15-0400 Systolic blood pressure 118 mm[Hg] Kelechi Ball Other [facility] Other 01-16-2023 12:30-0400 Body height 165.1 cm Kelechi Ball Other [facility] Other 01-16-2023 12:30-0400 Body mass index (BMI) [Ratio] 52.28 kg/m2 Kelechi Ball Other [facility] Other 01-16-2023 12:30-0400 Body weight 142.52 kg Kelechi Ball Other [facility] Other 01-16-2023 12:30-0400 Diastolic blood pressure 72 mm[Hg] Kelechi Ball Other [facility] Other 01-16-2023 12:30-0400 Respiratory rate 16 /min Kelechi Ball Other [facility] Other 01-16-2023 12:30-0400 Systolic blood pressure 147 mm[Hg] Kelechi Ball Other [facility] Other 01-11-2023 18:10-0400 Body height 165.1 cm Angélica Swann Other [facility] Other 01-11-2023 18:10-0400 Body mass index (BMI) [Ratio] 52.41 kg/m2 Angélica Swann Other [facility] Other 01-11-2023 18:10-0400 Body temperature 99.6 [degF] Angélica Swann Other [facility] Other 01-11-2023 18:10-0400 Body weight 142.88 kg Angélica Mcqueenmond Other [facility] Other 01-11-2023 18:10-0400 Diastolic blood pressure 64 mm[Hg] Angélica Swann Other [facility] Other 01-11-2023 18:10-0400 Respiratory rate 20 /min Angélica Swann Other [facility] Other 01-11-2023 18:10-0400 SaO2% (BldA) [Mass fraction] 96 % Angélica Swann Other [facility] Other 01-11-2023 18:10-0400 Systolic blood pressure 117 mm[Hg] Angélica Mcqueenmond Other [facility] Other 10-18-2022 12:00-0500 Body height 165.1 cm Kelechi Ball Other [facility] Other 10-18-2022 12:00-0500 Body mass index (BMI) [Ratio] 52.31 kg/m2 Kelechi Ball Other [facility] Other 10-18-2022 12:00-0500 Body weight 142.61 kg Kelechi Ball Other [facility] Other 10-18-2022 12:00-0500 Diastolic blood pressure 84 mm[Hg] Kelechi Ball Other [facility] Other 10-18-2022 12:00-0500 Respiratory rate 12 /min Kelechi Galvan Other [facility] Other 10-18-2022 12:00-0500 Systolic blood pressure 122 mm[Hg] Kelechi Galvan Other [facility] Other Encounters Encounter Date Encounter Type Care Provider Facility Start: 10-27-2023 End: 10-27-2023 ambulatory [facility] Work Phone: Start: 10-27-2023 End: 10-27-2023 Patient encounter procedure [facility] Work Phone: Start: 10-20-2023 End: 10-20-2023 ambulatory Kelechi Ball Other [facility] Other Start: 10-20-2023 Encounter by alysha lizarraga Kelechi Galvan [facility] Start: 10-17-2023 End: 10-17-2023 ambulatory Kelechi Ball Other [facility] Other Start: 10-17-2023 Office outpatient vi sit 15 minutes Kelechi Ball [facility] Start: 09-22-2023 End: 09-22-2023 ambulatory Kelechi Ball Other [facility] Other Start: 09-22-2023 Office outpatient vi sit 15 minutes Kelechi Ball [facility] Start: 09-22-2023 End: 09-22-2023 Patient encounter procedure [facility] Work Phone: Start: 09-08-2023 End: 09-08-2023 ambulatory Kelechi Ball Other [facility] Other Start: 09-08-2023 Telephone encounter Kelechi Galvan [facility] Start: 08-28-2023 End: 08-28-2023 ambulatory Kelechi Ball Other [facility] Other Start: 08-28-2023 Telephone encounter Kelechi Galvan [facility] Start: 08-26-2023 End: 08-26-2023 ambulatory Kelechi Galvan Other [facility] Other Start: 08-26-2023 Telephone encounter Kelechi GRANDA [facility] Start: 08-22-2023 End: 08-22-2023 ambulatory Kelechi Galvan Other [facility] Other Start: 08-22-2023 Encounter for genera l adult medical examination without abnormal findings Kelechi Galvan [facility] Start: 08-22-2023 Periodic preventive med est patient 40-64yrs Kelechi Galvan [facility] Start: 08-22-2023 End: 08-22-2023 Patient encounter procedure [facility] Work Phone: Start: 05-26-2023 End: 05-26-2023 ambulatory Angélica Swann Other [facility] Other Start: 05-26-2023 Office outpatient vi sit 15 minutes Angélica Swann [facility] Start: 04-18-2023 End: 04-18-2023 ambulatory Kelechi Galvan Other [facility] Other Start: 04-18-2023 Office outpatient vi sit 15 minutes Kelechi Ball [facility] Start: 02-28-2023 End: 02-28-2023 ambulatory Kelechi Galvan Other [facility] Other Start: 02-28-2023 Office outpatient vi sit 15 minutes Kelechi Ball [facility] Start: 01-19-2023 End: 01-19-2023 ambulatory Kelechi Galvan Other [facility] Other Start: 01-19-2023 Telephone encounter Kelechi Galvan [facility] Start: 01-16-2023 End: 01-16-2023 ambulatory Kelechi Galvan Other [facility] Other Start: 01-16-2023 Office outpatient vi sit 25 minutes Kelechi Galvan [facility] Start: 01-11-2023 End: 01-11-2023 Patient encounter procedure [employer]-C Angélica Swann Work Phone: [facility] Work Phone: Start: 01-11-2023 End: 01-11-2023 ambulatory Angélica Swann [facility] Work Phone: Start: 01-11-2023 Office outpatient vi sit 15 minutes Angélica Swann [facility] Start: 01-11-2023 Telephone encounter Kelechi GRANDA [facility] Start: 01-09-2023 Encounter for genera l adult medical examination without abnormal findings DR KELECHI GALVAN [facility] Start: 01-05-2023 End: 01-06-[address] KELECHI GALVAN Facility:[facility] Start: 01-05-2023 End: 01-06-2023 Encounter for general adult medical examination without abnormal findings DR KELECHI GALVAN Facility:[facility] Start: 01-03-2023 End: 01-03-2023 ambulatory Kelechi Galvan Other [facility] Other Start: 01-03-2023 Encounter for genera l adult medical examination without abnormal findings Kelechi Galvan [facility] Start: 01-03-2023 Patient encounter status Conrad Galvan Other [facility] Other Start: 01-03-2023 Telephone encounter Kelechi GRANDA [facility] Start: 12-21-2022 End: 12-22-[address] KELECHI GALVAN Facility:[facility] Start: 12-08-2022 End: 12-09-[address] KELECHI GALVAN Facility:[facility] Start: 11-23-2022 End: 11-23-2022 ambulatory Kelechi Galvan Other [facility] Other Start: 11-23-2022 Telephone encounter Kelechi GRANDA [facility] Start: 11-16-2022 End: 11-17-[address] KELECHI GALVAN Facility:[facility] Start: 11-09-2022 End: 11-24-[address] KELECHI GALVAN Facility:[facility] Start: 11-03-2022 End: 11-04-[address] KELECHI GALVAN Facility:[facility] Start: 10-27-2022 End: 10-28-[address] KELECHI GALVAN [facility] Other Start: 10-27-2022 Telephone encounter [facility] Start: 10-18-2022 End: 10-18-2022 ambulatory Kelechi Galvan Other [facility] Other Start: 10-18-2022 Office outpatient vi sit 25 minutes Kelechi Galvan [facility] Start: 10-07-2022 End: 10-07-2022 ambulatory Kelechi Galvan Other [facility] Other Start: 10-07-2022 Telephone encounter [facility] Start: 08-26-2022 Adult health examination Conrad Galvan Other [facility] Other Start: 07-11-2022 End: 07-12-[address] KELECHI GALVAN Facility:[facility] Start: 04-07-2022 End: 04-08-[address] DEANN ELIAS . Facility:[facility] Start: 07-28-2019 Pre-procedure evalua tion check Kelechi Galvan Other [facility] Other Start: 07-17-2018 Gynecological examin ation normal Kelechi Galvan Other [facility] Other Procedures Date Procedure Procedure Detail Performing Clinician Start: 01-11-2023 Plain X-ray of right hand [employer] AID COUNSELOR-C Angélica Swann Work Phone: Start: 01-18-2019 Preoperative [...] Date Payer Category Payer Self-pay 1975 Unknown [id number] 2.16.84 [id number] 1975 Unknown [id number] 2.16.84 [id number] 1975 Unknown [id number] 2.16.84 [id number] 1975 Unknown [id number] 2.16.84 [id number] 1975 Unknown [id number] 2.16.84 [id number] 1975 Unknown [id number] 2.16.84 [id number] 1975 Unknown [id number] 2.16.84 [id number] 1975 Unknown [id number] 2.16.84 [id number] 1975 Unknown [id number] 2.16.84 [id number] 1975 Unknown [id number] 2.16.84 [id number] 1975 Unknown [id number] 2.16.84 [id number] 1959 Unknown [id number] 2.1 [id number] 1959 Unknown [id number] Medicaid [employer]age [id number] Unknown [id number] 2.16.8 [id number] Social History Date Type Detail Facility Unknown if ever smoked [facility] Other Sex Assigned At Sex Assigned At Bir th [facility] Other Start: 1975 Sex Assigned At Female F [facility] Start: 05-16-2018 Tobacco smoking status NHIS Never smoked tobacco (finding) [facility] Clinical Notes 05-31-2011 to 10-20-2023 Note Date & Type Note Facility 10-20-2023 Evaluation note Encounter Date Diagnosis Assessment Notes Oct, Morbid (severe) obesity due to excess calories (ICD-10 - E66.01) [facility] Other 02-06-2024 Evaluation note* Encounter Date Diagnosis [...] index [BMI] 50.0-59.9, adult (ICD-10 - Z68.43) [facility] Other 01-12-2024 Evaluation note* Encounter Date Diagnosis [...] index [BMI] 50.0-59.9, adult (ICD-10 - Z68.43) [facility] Other 12-29-2023 Evaluation note* Encounter Date Diagnosis Assessment Notes Treatment Notes Treatment Clinical Notes Aug, Prolactinoma (ICD-10 - D35.2) MRI < 10mm, prolactin 80 - 2022 [facility] Other 12-16-2023 Evaluation note* Encounter Date Diagnosis Assessment Notes Treatment Notes Treatment Clinical Notes Aug, Hyperprolactinemia (ICD-10 - E22.1) [facility] Other [id number] Evaluation note* Encounter Date Diagnosis Assessment Notes [...] use, the patient reduces the risk for VA, CVA, HTN, cardiac dysrhythmias and sudden cardiac [...] patient on monthly SBE and yearly mammograms. [facility] Other 09-15-2023 Evaluation note* Encounter Date Diagnosis [...] thoracic region, initial encounter (ICD-10 - S29.019A) [facility] Other 08-08-2023 Evaluation note* Encounter Date Diagnosis Assessment Notes Treatment Notes Treatment Clinical Notes Apr, Sharmin-menopausal (ICD-10 - N95.1) Recommend scheduling appt w/ [facility]. Apr, Primary hypertension (ICD-10 - I10) This [...] use, the patient reduces the risk for VA, CVA, HTN, cardiac dysrhythmias and sudden cardiac deaths.The patient is also aware of the association between REBA and morning headaches, daytime somnolence, fatigue and obesity, which also has been improved with continued use.The patient is compliant with treatment, wearing the equipment every night for greater than 4 hours.The patient is instructed to continue use of the CPAP for REBA treatment. [facility] Other 06-20-2023 Evaluation note* Encounter Date Diagnosis Assessment Notes Treatment Notes Treatment Clinical Notes Feb, Seborrheic dermatitis of scalp (ICD-10 - L21.9) Keep clean, avoid scratching Stop using Mupirocin Initiate topical steroid ointment Feb, Primary hypertension (ICD-10 - I10) This patient is instructed to consume a healthy, low-fat, low-salt diet. They are also encouraged to continue exercise to achieve/maintain a normal BMI. [facility] Other 05-11-2023 Evaluation note* Encounter Date Diagnosis Assessment Notes Treatment Notes Treatment Clinical Notes January, Type 2 diabetes mellitus with hyperglycemia, without long-term current use of insulin (ICD-10 - E11.65) [facility] Other 05-08-2023 Evaluation note* Encounter Date Diagnosis [...] use, the patient reduces the risk for VA, CVA, HTN, cardiac dysrhythmias and sudden cardiac [...] visual defects. January, Hyperprolactinemia (ICD-10 - E22.1) [facility] Other 05-03-2023 Evaluation note* Encounter Date Diagnosis Assessment Notes Treatment Notes Treatment Clinical Notes January, REBA (obstructive sleep apnea) (ICD-10 - G47.33) AHI 104 w/ Psat 68%, BiPAP , full facial mask [facility] Other 05-03-2023 Evaluation note* Encounter Date Diagnosis [...] no improvement in 2 to 3 days [facility] Other 04-25-2023 Evaluation note* Encounter Date Diagnosis Assessment Notes Treatment Notes Treatment Clinical Notes Dec, Type 2 diabetes mellitus with hyperglycemia, without long-term current use of insulin (ICD-10 - E11.65) Dec, Primary hypertension (ICD-10 - I10) Dec, Wellness examination (ICD-10 - Z00.00) [facility] Other 03-30-2023 NoteCONSULTATION CONSULTATION DATE: 12/08/2022 TO: [...] this point for her residual pain symptoms.[id number] Evaluation note* Encounter Date Diagnosis Assessment Notes Treatment Notes Treatment Clinical Notes Nov, ERBA (obstructive sleep apnea) (ICD-10 - G47.33) AHI 101 w/ Psat 79% [facility] Other 03-15-2023 Evaluation note* Encounter Date Diagnosis Assessment Notes Treatment Notes Treatment Clinical Notes Nov, REBA (obstructive sleep apnea) (ICD-10 - G47.33) AHI 104 w/ Psat 68% [facility] Other 02-23-2023 NotePAIN MANAGEMENT CONSULTATION CONSULTATION DATE: [...] four weeks' time or sooner if needed.[facility] 11-03-2022 NotePAIN MANAGEMENT CONSULTATION CONSULTATION DATE: 11/03/2022 [...] on his response to change in medication.[facility] 10-18-2022 Evaluation note* Encounter Date Diagnosis Assessment [...] (ICD-10 - R29.818) Referral for sleep study [facility] Other 07-28-2022 NoteCONSULTATION CONSULTATION DATE: 04/07/2022 HISTORY [...] Patient states understanding and all questions answered.[facility] [id number] History general Narrative - Reported* Type Description Date Medical History hypertension Medical History back pain Medical History degenerative disc disease Medical History Prolactinoma Medical History asthma Surgical History C section 05/31/2011 Surgical History IVF 12/01/2008 Surgical History hysterectomy laps assisted 12-11 007 Surgical History right foot sx (planter) Hospitalization History see above Hospitalization History blood transfusion 09/2014 [facility] Other Evaluation noteNo InformationNort [employer] Other Evaluation noteNo assessment information available [facility] Work Phone: Evaluation note* Diagnosis Onset Date Resolution Status Type 2 diabetes mellitus with hyperglycemia acute COVID-[address] [facility] Work Phone: History general Narrative - Reported* [...] see above Hospitalization History blood transfusion 09/2014 [facility] Other Summary Purpose Family History Relationship Condition [...] month Follow uprefillrash on scalp spreadingHormones/ Thoughts- [phone] in neck and upper backWELLNESSNo Informationlab resultsMR results1 month Follow upadipex reorder1 month Follow up INFORMATION SOURCE (unrecogn ized section and content) DATE CREATED AUTHOR 01/11/2023 [facility] DATE CREATED AUTHOR AUTHOR'S ORGANIZ ATION 01/12/2023 [facility] Care Teams (unrecognized sec tion and content) [...] BE BASED ON THE PRIMARY CLINICAL RECORDS. [facility] [employer] [facility]. provides no warranty or guarantee of the accuracy or completeness of information in this document.
[2023-11-27 08:03] VITALS: BP 129/88; PULSE 70; RESP 16; TEMP 36.2; O2SAT 99
[2023-11-27 08:10] LABS: Glucometer 93 mg/dL (74-106)
[2023-11-27 08:52] VITALS: BP 110/71; PULSE 67; RESP 18; O2SAT 94
[2023-11-27 09:01] VITALS: BP 121/80; PULSE 67; RESP 18; O2SAT 93
[2023-11-27] MEDS: LIDOCAINE HCL 2% 400 MG/20 ML MDV 12 ML INJ (09:07)
[2023-11-27] MEDS: BUPIVACAINE HCL 0.25% PF 25 MG/10 ML VIAL 4 ML INJ (09:07)
--- NOTE | 2023-11-27 09:07 | P.ON_ITS ---
Date of procedure: 11/27/23 Pre-op diagnosis: Lumbar spondylosis Post-op diagnosis: same as pre-op Procedure: Procedure: Bilateral T12-1, L2-3 radiofrequency ablation Medications: Bupivacaine 0.25% 6cc, lidocaine 2% 5cc, kenalog 80mg The patient was seen and examined in the preoperative holding area.? The site was marked.? Written informed consent was obtained and placed on the chart.? The patient was brought to the medical procedure unit and placed in the prone position.? A timeout was completed verifying correct patient, procedure, positioning, and special requirements.? The skin overlying the target points, the designated medial branch, were prepped and draped in the usual sterile fashion.? The target point was achieved with a 20-gauge 15 cm with a 10 mm curved active tip radiofrequency cannula under direct fluoroscopic visualization.? The needle was inserted at level T12 on the right side. Needle tip position was confirmed with lateral fluoroscopic position.? Motor stimulation was carried out at 2 Hz up to 5 volts with the absence of extremity activity.? This was repeated at level L1, 2, 3 on right side.?? Sensory stimulation was carried out.? Concordant pain was realized at the above- mentioned sites.? Then radiofrequency lesioning was carried out times 90 seconds at 80 degrees times 2 lesions at each level.? The radiofrequency probe was removed prior to cannula removal.? The above-mentioned injectate was placed in 1 mL increments.? The needle was removed. The same procedure, with the same steps, was then completed on the left side at the same levels. Insertion sites were covered.? The patient was taken to the postoperative recovery area and monitored for an appropriate length of time before being found suitable for discharge in the company of a responsible adult. Anesthesia: Local Surgeon: Joe Becerra Pathology: none sent Condition: stable Disposition: no change
[2023-11-27] MEDS: TRIAMCINOLONE ACETONIDE 40 MG/ML VIAL 80 MG INJ (09:08)
== END 2023-11-27 09:12 | disposition home or self-care (01) ==
PROVIDERS: PCP Internal Medicine; Visit Provider Anesthesiology
DX: M47.816 Spondylosis without myelopathy or radiculopathy, lumbar region (principal)
CPT/HCPCS: 36415; 64635; 64636; 82948

== ENCOUNTER 2024-01-03 07:40 | Outpatient (OUT) | payer OTHER, SELFPAY ==
--- OUTSIDE RECORDS SUMMARY | 2024-01-03 07:43 | XMS_ITS | CCD ---
Author Organization [facility] Care Team Providers Care Wrapper Rewinder Name Role Phone Kelechi Galvan Unavailable COLE, DR CULVER Primary Care Unavailable LAKSHMIPATHY ., NARENDRANATH Admitting Bebe vailable LAKSHMIPATHY ., NARENDRANATH Consulting Bebe vailable LAKSHMIPATHY ., NARENDRANATH Attending Bebe vailable ELIAS ., DR DEANN Mcguire Attending Unavailable BALL, DR CULVER Primary Care Unavailable ELIAS ., DR DEANN Mcguire Admitting Unavailable HUNG .YOGESH Consulting Unavailable COLE, DR CULVER Primary Care Unavailable LAKSHMIPATHY ., ERINN Consulting Bebe vailable LAKSHMIPATHY ., NARENDRANATH Attending Bebe vailable LAKSHMIPATHY ., NARENDRANATH Admitting Bebe vailable LAKSHMIPATHY ., NARENDRANATH Attending Bebe vailable LAKSHMIPATHY ., NARENDRANATH Admitting Bebe vailable BALL, DR CULVER Primary Care Unavailable BALL, DR CULVER Primary Care Unavailable COLE, DR CULVER Consulting Unavailable COLE, DR CULVER Attending Unavailable COLE, DR CULVER Admitting Unavailable COLE, DR CULVER Primary Care Unavailable COLE, DR CULVER Consulting Unavailable COLE, DR CULVER Attending Unavailable BALL, DR CULVER Admitting Unavailable BALL, DR CULVER Primary Care Unavailable LAKSHMIPATHY ., NARMICAHATH Admitting Bebe vailable LAKSHMIPATHY ., NARENDPAULA Attending Bebe vailable ZIKAITLINER, DR FELIPE Santiago Consulting Unavailable LAKSHMIPATHY ., ERINN Consulting Bebe vailable COLE, DR CULVER Primary Care Unavailable COLE, DR CULVER Consulting Unavailable COLE, DR CULVER Attending Unavailable BALL, DR CULVER Admitting Unavailable COLE, DR CULVER Consulting Unavailable COLE, DR CULVER Attending Unavailable COLE, DR CULVER Primary Care Unavailable COLE, DR CULVER Admitting Unavailable ARNALDO, DR ANGELA Orellana Consulting Unavailable COLE, DR CULVER Consulting Unavailable COLE, DR CULVER Attending Unavailable BALL, DR CULVER Admitting Unavailable BALL, DR CULVER Primary Care Unavailable COLE, DR CULVER Primary Care Unavailable LAKSHMIPATHY ., NARENDRANATH Admitting Bebe vailable LAKRILEYMIPATHY ., NARENDRANATH Attending Bebe vailable Angélica Swann Unavailable Angélica Swann Attending Unavailable Angélica Swann Admitting Unavailable RTINI Swann Attending Provider [phone] Hernan BURGESS, Joe Ko Attending Unavailable Allergies Allergy Classification Reported Allergen(s) Allergy Type Date of Onset Reaction(s) Facility (13 sources) Penicillin G Drug Allergy pt doesn't remember [facility] Other (2 sources) Penicillins Drug allergy (disorder) 3 [facility] (10 sources) Doxycycline Drug Allergy 4 Unknown, Unknown Reaction [facility] (2 sources) Penicillin Drug Allergy Unknown [facility] Other (9 sources) Penicillin G Benzathine & Proc Drug allergy 7 Unknown [facility] Other (2 sources) patient allergy list reviewed by nurse or physicia Propensity to adverse reactions 4 Comment:Done [facility] Other (2 sources) Allergies Reconciled Propensity to adverse reactions Unknown [facility] Other (1 source) Penicillin G Benzathine Allergy to substance 4 Unknown Reaction [facility] Medications Current Medications Medication Drug Class(es) [...] for 5 days orally per package directions; Lola Pirindola Ultra - (8 sources) [facility] - USE 1 STRIP TO CHECK HOME BLOOD SUGAR for 25 Active phentermine hydrochloride 37.5 mg oral tablet (7 sources) Sympathomimetic Amine Anorectic Start: 10-23-2023 take 1 tablet by mouth once daily before breakfast Adipex-P 37.5 MG 1 tablet before breakfast Orally Once a day for 30 days Rx #3 Oct, Active Start: 09-22-2023 [facility] daily before breakfast Adipex-P 37.5 MG [...] eye(s) three times daily as needed Maxitrol 3.5-65883-2.1 2 drops into affected eye Ophthalmic Three times a day for 7 days Sep, Not-Taking/PRN Start: 09-13-2020 take 2 drop(s) into the eye(s) three times daily Maxitrol 3.5-23271-2.1 2 drops into affected eye Ophthalmic Three times a day for 7 days Sep, Not-Taking Start: 09-13-2020 take 2 drop(s) into the eye(s) three times daily Maxitrol 3.5-47205-7.1 2 drops into affected eye Ophthalmic Three [...] sources) High risk drug monitoring status; 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: [terminal carman (current) use of opiate analgesic] Episodic Other [...] [facility] [place] [address] XRay Report Signed Patient: Jing Gray MR#: [id number] 1 : 1975 Acct:[id number] Age/Sex: 47 / F ADM Date: 01/11/23 Loc: XDUCLY Room: Type: [facility] Attending Dr: Angélica FELIZ Copies to: TRINI [...] Blake Marino M.D.01/11/2023 6:08 PM Dictation Location: [place] [address] Transcribed By: [facility] 01/11/231807 Dictated By: Blake Marino DO 01/11/231806 Signed By: 01/11/231807 Normal [facility] XR hand RT min 3V* [facility] Desti Other XR hand RT min 3V* [facility] Other XR hand RT min 3V* [address] [place] [address] [facility] Other XR hand RT min 3V* [place] [address] [facility] Other XR hand RT min 3V* XRay Report [facility] Other XR hand RT min 3V* Signed [facility] Other XR hand RT min 3V* Patient: Jing Gray MR#: [id number] [facility] Other XR hand RT min 3V* 1 [facility] Other XR hand RT min 3V* : 1975 Acct:[id number] [facility] Other XR hand RT min 3V* Age/Sex: 47 / F ADM Date: 01/11/23 [facility] Other XR hand RT min 3V* Loc: XDUCLY Room: Type: [facility] Other XR hand RT min 3V* Attending Dr: Angélica FELIZ [facility] Other XR hand RT min 3V* Copies to: TRINI Alvarado [facility] Other XR hand RT min 3V* Ordering Provider: TRINI Alvarado [facility] Other XR hand RT min 3V* Date of Service: 01/11/23 [facility] Other XR hand RT min 3V* XR/XR hand RT min 3V*: RIGHT HAND INJURY [facility] Other XR hand RT min 3V* 3 views right hand plain film [facility] Other XR hand RT min 3V* COMPARISON: None [facility] Other XR hand RT min 3V* HISTORY: Fourth and fifth metacarpal injury [facility] Other XR hand RT min 3V* ACUTE FINDINGS: None [facility] Other XR hand RT min 3V* DEGENERATIVE CHANGE: Unremarkable [facility] Other XR hand RT min 3V* SOFT TISSUE FINDINGS: Unremarkable [facility] Other XR hand RT min 3V* JOINT EFFUSION: None [facility] Other XR hand RT min 3V* POSTOP CHANGES: None [facility] Other XR hand RT min 3V* BONY MINERALIZATION: Adequate [facility] Other XR hand RT min 3V* XR/XR hand RT min 3V* [facility] Other XR hand RT min 3V* IMPRESSION: No acute findings [facility] Other XR hand RT min 3V* Impression dictated by: Blake Marino M.D.01/11/2023 6:08 PM [facility] Other XR hand RT min 3V* Dictation Location: [place] [address] [facility] Other XR hand RT min 3V* Transcribed By: DILCIA 01/11/23 1808 [facility] Other XR hand RT min 3V* Dictated By: Blake Marino DO 01/11/23 1809 [facility] Desti Other XR hand RT min 3V* Signed By: [facility] Other XR hand RT min 3V* 01/11/23 1808 [facility] Desti Other PROLACTINon 01-06-2023 Prolactin 34.5 ng/mL Critically high 4.8-23.3 [facility] Comment on above: Performed By: #### P ROLAC #### [facility] [address] [place], [place] [address] Dr. Digna Thomas CBC AUTO DIFFon 01-05-2023 BASO # 0.1 103/ul Normal 0.0-0.1 [facility] Comment on above: Performed By: #### C BC ####[facility] [address]ps[address] [place] [address]Dr. Digna Thomas Basophils/100 WBC (Bld) 0.8 % Normal 0.2-2.0 [facility] Comment on above: Performed By: #### C BC ####[facility] [address] [place] [address]Dr. Digna Thomas EO # 0.5 103/ul Normal 0.0-0.7 [facility] Comment on above: Performed By: #### C BC ####[facility] [address]yg[address]16[address] [place] [address]Dr. Digna Thomas Eosinophils/100 WBC (Bld) 5.0 % Normal 0.9-7.0 [facility] Comment on above: Performed By: #### C BC ####[facility] [address]jmgselhh84[address] [place] [address]Dr. Digna Thomas Erythrocyte distribution width (RBC) [Ratio] 13.0 % Normal 11.0-15.0 [facility] Comment on above: Performed By: #### C BC ####[facility] [address] [place] [address]Dr. Digna Thomas Hematocrit (Bld) [Volume fraction] 44.6 % Normal 36.0-48.0 [facility] Comment on above: Performed By: #### C BC ####[facility] Rxcvjqgqoz90[address] [place] [address]DrNile Thomas Hemoglobin (Bld) [Mass/Vol] 14.4 g/dL Normal 12.0-16.0 [facility] Comment on above: Performed By: #### C BC ####[facility] [address]waedc[address] [place] [address]DrNile Thomas IG # 0.05 10e3/ul Critically high 0.00-0.03 [facility] Comment on above: Performed By: #### C BC ####[facility] [address] [place] [address]DrNile Thomas IG % 0.5 % Normal 0.0-0.5 [facility] Comment on above: Performed By: #### C BC ####[facility] [address] [place], [place] [address]DrNile Thomas LYMPH # 2.3 103/ul Normal 1.2-3.8 [facility] Comment on above: Performed By: #### C BC ####[facility] [address] [place], [place] [address]DrNile Thomas Lymphocytes/100 WBC (Bld) 23.0 % Normal 20.5-60.0 [facility] Comment on above: Performed By: #### C BC ####[facility] [address] [place] [address]DrNile Thomas MANUAL DIFF REQ NO Normal [facility] Comment on above: Performed By: #### C BC ####[facility] [address] [place] [address]DrNile Thomas MCH (RBC) [Entitic mass] 28.3 pg Normal 26.7-34.0 [facility] Comment on above: Performed By: #### C BC ####[facility] [address]uc[address] [place] [address]DrNile Thomas MCHC (RBC) [Mass/Vol] 32.3 g/dL Normal 29.9-35.2 [facility] Comment on above: Performed By: #### C BC ####[facility] [address] [place] [address]Dr. Digna William MCV (RBC) [Entitic vol] 87.8 fL Normal 81.0-99.0 [facility] Comment on above: Performed By: #### C BC ####[facility] [address]isllw5[address] [place] [address]Dr. Anajs William MONO # 0.8 103/ul Normal 0.3-0.8 [facility] Comment on above: Performed By: #### C BC ####[facility] [address]je[address] [place] [address]Dr. Digna Thomas Monocytes/100 WBC (Bld) 7.9 % Normal 1.7-12.0 [facility] Comment on above: Performed By: #### C BC ####[facility] [address] [place], [place] [address]Dr. Digna Thomas NEUT # 6.3 103/ul Normal 1.4-6.5 [facility] Comment on above: Performed By: #### C BC ####[facility] [address] [place], [place] [address]Dr. Anajs Thomas Neutrophils/100 WBC (Bld) 62.8 % Normal 43.0-75.0 [facility] Comment on above: Performed By: #### C BC ####[facility] [address] [place], [place] [address]Dr. Digna Thomas Platelet mean volume (Bld) [Entitic vol] 9.9 fL Normal 9.5-13.5 [facility] Comment on above: Performed By: #### C BC ####[facility] [address] [place], [place] [id number]. Digna Thomas PLT 223 103/ul Normal 150-450 [facility] Comment on above: Performed By: #### C BC ####[facility] [address]gt[address] [place] [id number]. Digna Thomas RBC 5.08 106/ul Normal 4.20-5.40 [facility] Comment on above: Performed By: #### C BC ####[facility] [address]34[address] [place], [place] [address]EtDr. Digna Thomas WBC 10.0 103/ul Normal 4.0-11.0 [facility] Comment on above: Performed By: #### C BC ####[facility] [address] [place], [place] [address]BhDr. Digna Thomas LIPID PROFILEon 01-05-2023 CHOL-HDL RATIO NORM SEE BELOW Normal [facility] Comment on above: Result Comment: 3.3 - 4.4 LOW RISK 4.4 - 7.1 AVERAGE RISK 7.1 - 11.0 MODERATE RISK >11.0 HIGH RISK Performed By: #### B MP, TSH, LIPID #### [facility] [address] [place] [address] [address] Digna Thomas Cholesterol [Mass/Vol] 179 mg/dL Normal <=200 [facility] Comment on above: Performed By: #### B MP, TSH, LIPID #### [facility] [address] [place] [address] [address] Digna Thomas Cholesterol in HDL [Mass/Vol] 55 mg/dL Normal 40-60 [facility] Comment on above: Performed By: #### B MP, TSH, LIPID #### [facility] [address] [place] [address] [address] Digna Thomas Cholesterol in LDL [Mass/Vol] 103.8 mg/dL Normal [facility] Comment on above: Performed By: #### B MP, TSH, LIPID #### [facility] [address] [place] [address] [address] Digna Thomas Cholesterol.total/Ch olesterol in HDL [Mass ratio] 3.3 {ratio} Normal [facility] Comment on above: Performed By: #### B MP, TSH, LIPID #### [facility] [address] [place] [address] [address] Digna Thomas HDL NORMAL > or = 60 mg/dl - LOW CARDIOVASCULAR RISK <40 mg/dl - HIGH CARDIOVASCULAR RISK Normal [facility] Comment on above: Performed By: #### B MP, TSH, LIPID #### [facility] [address] [place] [address] Dr. Digna Thomas LDL CALC NORMAL SEE BELOW Normal [facility] Comment on above: Result Comment: <100 mg/dl OPTIMAL 100 - 129 mg/dl NEAR OR ABOVE OPTIMAL 130 - 159 mg/dl BORDERLINE HIGH 160 - 189 mg/dl HIGH >190 mg/dl VERY HIGH Performed By: #### B MP, TSH, LIPID #### [facility] [address] [place] [address] [address] Digna Thomas Triglyceride [Mass/Vol] 101 mg/dL Normal <=150 [facility] Comment on above: Performed By: #### B MP, TSH, LIPID #### [facility] [address] [place] [address] Dr. Digna Thomas VLDL CALC 20.2 mg/dL Normal [facility] Comment on above: Performed By: #### B MP, TSH, LIPID #### [facility] [address] [place] [address] Dr. Digna Thomas PROF CHEM 8 (BAS METB)on Anion gap [Moles/Vol] 13.3 mmol/L Normal [facility] Comment on above: Performed By: #### B MP, TSH, LIPID #### [facility] [address] [place] [address] Dr. Digna Thomas Calcium [Mass/Vol] 9.4 mg/dL Normal 8.5-10.[address] [facility] Comment on above: Performed By: #### B MP, TSH, LIPID #### [facility] [address] [place] [address] Dr. Digna Thomas Chloride [Moles/Vol] 104 mmol/L Normal 98-107 [facility] Comment on above: Performed By: #### B MP, TSH, LIPID #### [facility] [address] [place] [address] Dr. Digna Thomas CO2 [Moles/Vol] 27.1 mmol/L Normal 21.0-32.0 [facility] Comment on above: Performed By: #### B MP, TSH, LIPID #### [facility] [address] [place] [address] [address] Digna Thomas Creatinine [Mass/Vol] 0.71 mg/dL Normal 0.55-1.02 [facility] Comment on above: Performed By: #### B MP, TSH, LIPID #### [facility] [address] [place] [address] [address] Digna Thomas EGFR-AF ITALIAN >60 Normal >=60 [facility] Comment on above: Performed By: #### B MP, TSH, LIPID #### [facility] [address] [place] [address] [address] Digna Thomas EGFR-NON AF ITALIAN >60 Normal >=60 [facility] Comment on above: Performed By: #### B MP, TSH, LIPID #### [facility] [address] [place] [address] [address] Digna Thomas Glucose [Mass/Vol] 163 mg/dL Critically high 74-106 [facility] Comment on above: Performed By: #### B MP, TSH, LIPID #### [facility] [address] [place] [address] [address] Digna Thomas Potassium [Moles/Vol] 4.4 mmol/L Normal 3.5-5.1 [facility] Comment on above: Performed By: #### B MP, TSH, LIPID #### [facility] [address] [place] [address] [address] Digna Thomas Sodium [Moles/Vol] 140 mmol/L Normal 136-[address] [facility] Comment on above: Performed By: #### B MP, TSH, LIPID #### [facility] [address] [place] [address] [address] Digna Thomas Urea nitrogen [Mass/Vol] 15.0 mg/dL Normal 7.0-18.0 [facility] Comment on above: Performed By: #### B MP, TSH, LIPID #### [facility] [address] [place] [address] [address] Digna Thomas Urea nitrogen/Creatinine [Mass ratio] 21.1 mg/mg Normal [facility] Comment on above: Performed By: #### B MP, TSH, LIPID #### [facility] [address] [place] [address] [address] Digna Thomas TSHon 01-05-2023 TSH 3.955 uIU/mL Critically high 0.358-3.[address] [facility] Comment on above: Performed By: #### B MP, TSH, LIPID #### [facility] [address] [place] [address] [address] Digna Thomas XR CSPINE MIN 4 [...] FELIPE TRINH Date: 2022-11-04 08:02 Normal [facility] GLYCOHEMOGLOBIN A1Con 2022 ADA RECOMMENDATION SEE BELOW Normal [facility] Comment on above: Result Comment: ADA RECOMMENDED LIMIT 4.0 - 6.0 ADA THERAPEUTIC TARGET < 7.0 ACTION SUGGESTED > 7.0 Performed By: #### A 1C ####[facility] [address] [place] [address]Dr. Digna Thomas Glucose [Mass/Vol] 166 mg/dL Normal [facility] Comment on above: Performed By: #### A 1C ####[facility] [address]xyr[address] [place] [address]Dr. Digna Thomas HbA1c (Bld) [Mass fraction] 7.4 % Critically high 4.5-6.2 [facility] Comment on above: Performed By: #### A 1C ####[facility] [address] [place] [address]Dr. Digna Thomas PROLACTINon 07-12-2022 Prolactin 48.0 ng/mL Critically high 4.8-23.3 [facility] Comment on above: Performed By: #### P ROLAC #### [facility] [address] [place] [address] [address] Digna Thomas CBC AUTO DIFFon 07-11-2022 BASO # 0.1 103/ul Normal 0.0-0.1 [facility] Comment on above: Performed By: #### C BC ####[facility] [address]eb[address] [place] [address]DrNile Thomas Basophils/100 WBC (Bld) 0.8 % Normal 0.2-2.0 [facility] Comment on above: Performed By: #### C BC ####[facility] [address] [place], [place] [address]DrNile Thomas EO # 0.7 103/ul Normal 0.0-0.7 [facility] Comment on above: Performed By: #### C BC ####[facility] [address] [place], [place] [address]DrNile Thomas Eosinophils/100 WBC (Bld) 5.8 % Normal 0.9-7.0 [facility] Comment on above: Performed By: #### C BC ####[facility] [address] [place], [place] [address]DrNile Thomas Erythrocyte distribution width (RBC) [Ratio] 12.7 % Normal 11.0-15.0 [facility] Comment on above: Performed By: #### C BC ####[facility] [address] [place], [place] [address]DrNile Thomas Hematocrit (Bld) [Volume fraction] 45.4 % Normal 36.0-48.0 [facility] Comment on above: Performed By: #### C BC ####[facility] [address] [place], [place] [address]Dr. Digna Thomas Hemoglobin (Bld) [Mass/Vol] 15.3 g/dL Normal 12.0-16.0 [facility] Comment on above: Performed By: #### C BC ####[facility] [address] [place], [place] [address]DrNile Thomas IG # 0.04 10e3/ul Critically high 0.00-0.03 [facility] Comment on above: Performed By: #### C BC ####[facility] [address]fs[address] [place] [address]Dr. Digna Thomas IG % 0.3 % Normal 0.0-0.5 [facility] Comment on above: Performed By: #### C BC ####[facility] Edxx[address]kwiac[address] [place] [address]Dr. Digna Thomas LYMPH # 3.3 103/ul Normal 1.2-3.8 [facility] Comment on above: Performed By: #### C BC ####[facility] [address]wh[address]mtm[address] [place] [address]Dr. Digna William Lymphocytes/100 WBC (Bld) 28.1 % Normal 20.5-60.0 [facility] Comment on above: Performed By: #### C BC ####[facility] [address] [place] [address]Dr. Digna William MANUAL DIFF REQ NO Normal [facility] Comment on above: Performed By: #### C BC ####[facility] [address] [place] [address]Dr. Digna Thomas MCH (RBC) [Entitic mass] 29.2 pg Normal 26.7-34.0 [facility] Comment on above: Performed By: #### C BC ####[facility] [address] [place], [place] [address]Dr. Digna Thomas MCHC (RBC) [Mass/Vol] 33.7 g/dL Normal 29.9-35.2 [facility] Comment on above: Performed By: #### C BC ####[facility] [address]zwbou[address] [place] [address]Dr. Digna Thomas MCV (RBC) [Entitic vol] 86.6 fL Normal 81.0-99.0 [facility] Comment on above: Performed By: #### C BC ####[facility] [address] [place], [place] [address]Dr. Anajs William MONO # 0.8 103/ul Normal 0.3-0.8 [facility] Comment on above: Performed By: #### C BC ####[facility] [address]rrhyva[address] [place] [address]Dr. Digna Thomas Monocytes/100 WBC (Bld) 6.4 % Normal 1.7-12.0 [facility] Comment on above: Performed By: #### C BC ####[facility] [address]kmjfi[address] [place] [address]Dr. Digna Thomas NEUT # 6.9 103/ul Critically high 1.4-6.5 [facility] Comment on above: Performed By: #### C BC ####[facility] [address]xwxm[address] [place] [address]Dr. Digna Thomas Neutrophils/100 WBC (Bld) 58.6 % Normal 43.0-75.0 [facility] Comment on above: Performed By: #### C BC ####[facility] Fxx[address]rhgd26[address] [place] [address]Dr. Digna Thomas Platelet mean volume (Bld) [Entitic vol] 10.0 fL Normal 9.5-13.5 [facility] Comment on above: Performed By: #### C BC ####[facility] [address]qpnmh[address] [place] [address]Dr. Digna Thomas PLT 242 103/ul Normal 150-450 [facility] Comment on above: Performed By: #### C BC ####[facility] E[address]eflb[address] [place] [address]Dr. Digna Thomas RBC 5.24 106/ul Normal 4.20-5.40 [facility] Comment on above: Performed By: #### C BC ####[facility] [address]xd[address]puwcwt3[address] [place] [address]Dr. Digna Thomas WBC 11.8 103/ul Critically high 4.0-11.0 [facility] Comment on above: Performed By: #### C BC ####[facility] [address] [place], [place] [address]Dr. Digna Thomas GLYCOHEMOGLOBIN A1Con 2021 ADA RECOMMENDATION SEE BELOW Normal [facility] Comment on above: Result Comment: ADA RECOMMENDED LIMIT 4.0 - 6.0 ADA THERAPEUTIC TARGET < 7.0 ACTION SUGGESTED > 7.0 Performed By: #### A 1C ####[facility] [address] [place] [id number]. Digna Thomas Glucose [Mass/Vol] 183 mg/dL Normal [facility] Comment on above: Performed By: #### A 1C ####[facility] [address]re[address] [place] [address]Dr. Digna Thomas HbA1c (Bld) [Mass fraction] 8.0 % Critically high 4.5-6.2 [facility] Comment on above: Performed By: #### A 1C ####[facility] [address]rps[address] [place] [address]Dr. Digna Thomas LIPID PROFILEon 07-11-2022 CHOL-HDL RATIO NORM SEE BELOW Normal [facility] Comment on above: Result Comment: 3.3 - 4.4 LOW RISK 4.4 - 7.1 AVERAGE RISK 7.1 - 11.0 MODERATE RISK >11.0 HIGH RISK Performed By: #### B MP, LIPID, TSH ####[facility] Or[address]dos[address] [place] [address]Dr. Digna Thomas Cholesterol [Mass/Vol] 161 mg/dL Normal <=200 [facility] Comment on above: Performed By: #### B MP, LIPID, TSH ####[facility] [address]thyk[address] [place] [address]Dr. Digna Thomas Cholesterol in HDL [Mass/Vol] 51 mg/dL Normal 40-60 [facility] Comment on above: Performed By: #### B MP, LIPID, TSH ####[facility] [address]jd[address] [place] [address]Dr. Digna Thomas Cholesterol in LDL [Mass/Vol] 86.2 mg/dL Normal [facility] [facility] Comment on above: Performed By: #### B MP, LIPID, TSH ####[facility] [address] [place] [address]Dr. Digna Thomas Cholesterol.total/Ch olesterol in HDL [Mass ratio] 3.2 {ratio} Normal [facility] Comment on above: Performed By: #### B MP, LIPID, TSH ####[facility] [address] [place], [place] [address]Lh. Digna Thomas HDL NORMAL > or = 60 mg/dl - LOW CARDIOVASCULAR RISK <40 mg/dl - HIGH CARDIOVASCULAR RISK Normal [facility] Comment on above: Performed By: #### B MP, LIPID, TSH ####[facility] [address] [place], [place] [address]Ej. Digna Thomas LDL CALC NORMAL SEE BELOW Normal [facility] Comment on above: Result Comment: <100 mg/dl OPTIMAL 100 - 129 mg/dl NEAR OR ABOVE OPTIMAL 130 - 159 mg/dl BORDERLINE HIGH 160 - 189 mg/dl HIGH >190 mg/dl VERY HIGH Performed By: #### B MP, LIPID, TSH ####[facility] [address] [place] [address]Dr. Digna Thomas Triglyceride [Mass/Vol] 119 mg/dL Normal <=150 [facility] Comment on above: Performed By: #### B MP, LIPID, TSH ####[facility] [address] [place] [id number]. Digna Thomas VLDL CALC 23.8 mg/dL Normal [facility] Comment on above: Performed By: #### B MP, LIPID, TSH ####[facility] [address] [place] [id number]. Digna Thomas MG MAMM SCREEN 3D JANE CADon 07-11-2022 MG MAMM SCREEN 3D JANE CAD Patient: JING GRAY Exam Date: 07/11/2022 : 1975 Gender:F Ordering : DR KELECHI GALVAN D.O. Admission #: [id number] Family : Order #: [id number] CLICK HERE TO VIEW EXAM RADIOLOGY REPORT [...] bladder cancer at age 51. LOCATION: [facility] BREAST COMPOSITION: Scattered areas fibroglandular density. [...] Cagle MD on 07/11/2022 at 10:14 Normal [facility] MICROALBUMIN, RAND URon 10-3 mALB 10.1 mg/L Normal <=30.0 [facility] Comment on above: Performed By: #### M ALBR #### [facility] [address] [address] [address] Digna Thomas PROF CHEM 8 (BAS METB)on Anion gap [Moles/Vol] 10.6 mmol/L Normal [facility] Comment on above: Performed By: #### B MP, LIPID, TSH ####[facility] [address] [place] [address]DrNile Thomas Calcium [Mass/Vol] 9.3 mg/dL Normal 8.5-10.[address] [facility] Comment on above: Performed By: #### B MP, LIPID, TSH ####[facility] [address] [place] [address]Dr. Digna Thomas Chloride [Moles/Vol] 99 mmol/L Normal 98-107 [facility] Comment on above: Performed By: #### B MP, LIPID, TSH ####[facility] [address] [place] [address]DrNile Thomas CO2 [Moles/Vol] 28.3 mmol/L Normal 21.0-32.0 [facility] Comment on above: Performed By: #### B MP, LIPID, TSH ####[facility] [address] [place] [id number]. Digna Thomas Creatinine [Mass/Vol] 0.74 mg/dL Normal 0.55-1.02 [facility] Comment on above: Performed By: #### B MP, LIPID, TSH ####[facility] [address] [place] [phone]. Digna Thomas EGFR-AF ITALIAN >60 Normal >=60 [facility] Comment on above: Performed By: #### B MP, LIPID, TSH ####[facility] [address] [place] [phone]. Digna Thomas EGFR-NON AF ITALIAN >60 Normal >=60 [facility] Comment on above: Performed By: #### B MP, LIPID, TSH ####[facility] [address] [place] [address]Dr. Digna Thomas Glucose [Mass/Vol] 190 mg/dL Critically high 74-106 T [facility] Comment on above: Performed By: #### B MP, LIPID, TSH ####[facility] [address] [place] [address]Dr. Digna Thomas Potassium [Moles/Vol] 3.9 mmol/L Normal 3.5-5.1 [facility] Comment on above: Performed By: #### B MP, LIPID, TSH ####[facility] [address] [place] [address]Dr. Digna Thomas Sodium [Moles/Vol] 134 mmol/L Critically low 136-145 Th [facility] Comment on above: Performed By: #### B MP, LIPID, TSH ####[facility] [address] [place] [id number]. Digna Thomas Urea nitrogen [Mass/Vol] 13.0 mg/dL Normal 7.0-18.0 [facility] Comment on above: Performed By: #### B MP, LIPID, TSH ####[facility] [address] [place] [address]Dr. Anajs Thomas Urea nitrogen/Creatinine [Mass ratio] 17.6 mg/mg Normal [facility] Comment on above: Performed By: #### B MP, LIPID, TSH ####[facility] [address] [place], [place] [address]VoDr. Digna Thomas TSHon 07-11-2022 TSH 4.084 uIU/mL Critically high 0.358-3.[address] [facility] Comment on above: Performed By: #### B MP, LIPID, TSH #### [facility] [address] [place], [place] [address] Dr. Digna Thomas Vital Signs Date Time Vital Sign Value Performing Clinician Facility 10-17-2023 09:00-0500 Body height 165.1 cm Kelechi Ball Other [facility] Other 10-17-2023 09:00-0500 Body mass index (BMI) [Ratio] 48.49 kg/m2 Kelechi Ball Other [facility] Other 10-17-2023 09:00-0500 Body weight 132.18 kg Kelechi Ball Other [facility] Other 10-17-2023 09:00-0500 Diastolic blood pressure 88 mm[Hg] Kelechi Ball Other [facility] Other 10-17-2023 09:00-0500 Respiratory rate 12 /min Kelechi Ball Other [facility] Other 10-17-2023 09:00-0500 Systolic blood pressure 138 mm[Hg] Kelechi Ball Other [facility] Other 09-22-2023 09:00-0500 Body height 165.1 cm Kelechi Ball Other [facility] 09-22-2023 09:00-0500 Body mass index (BMI) [Ratio] 50.25 kg/m2 Kelechi Ball Other [facility] Other 09-22-2023 09:00-0500 Body weight 136.99 kg Kelechi Ball Other [facility] Other 09-22-2023 09:00-0500 Body weight 136.98 kg [facility] 09-22-2023 09:00-0500 Diastolic blood pressure 85 mm[Hg] Kelechi Ball Other [facility] 09-22-2023 09:00-0500 Respiratory rate 12 /min Kelechi Ball Other [facility] Other 09-22-2023 09:00-0500 Systolic blood pressure 136 mm[Hg] Kelechi Ball Other [facility] 08-22-2023 08:30-0500 Body height 165.1 cm Kelechi Ball Other [facility] 08-22-2023 08:30-0500 Body mass index (BMI) [Ratio] 52.95 kg/m2 Kelechi Ball Other [facility] Other 08-22-2023 08:30-0500 Body weight 144.34 kg Kelechi Ball Other [facility] Other 08-22-2023 08:30-0500 Body weight 144.33 kg [facility] 08-22-2023 08:30-0500 Diastolic blood pressure 75 mm[Hg] Kelechi Ball Other [facility] 08-22-2023 08:30-0500 Respiratory rate 12 /min Kelechi Ball Other [facility] Other 08-22-2023 08:30-0500 Systolic blood pressure 115 mm[Hg] Kelechi Ball Other [facility] 05-26-2023 09:40-0400 Body height 165.1 cm Angélica Swann Other [facility] Other 05-26-2023 09:40-0400 Body mass index (BMI) [Ratio] 51.88 kg/m2 Angélica Swnan Other [facility] Other 05-26-2023 09:40-0400 Body temperature 98 [degF] Angélica Mcqueenmond Other [facility] Other 05-26-2023 09:40-0400 Body weight 141.43 kg Angélica Mcqueenmond Other [facility] Other 05-26-2023 09:40-0400 Diastolic blood pressure 68 mm[Hg] Angélica Hue Other [facility] Other 05-26-2023 09:40-0400 Respiratory rate 18 /min Angélica Swann Other [facility] Other 05-26-2023 09:40-0400 SaO2% (BldA) [Mass fraction] 96 % Angélica Swann Other [facility] Other 05-26-2023 09:40-0400 Systolic blood pressure 110 mm[Hg] Angélica Swann Other [facility] Other 02-28-2023 13:15-0400 Body height 165.1 cm Kelechi Ball Other [facility] Other 02-28-2023 13:15-0400 Body mass index (BMI) [Ratio] 52.55 kg/m2 Kelechi Ball Other [facility] Other 02-28-2023 13:15-0400 Body weight 143.25 kg Kelechi Ball Other [facility] Other 02-28-2023 13:15-0400 Diastolic blood pressure 77 mm[Hg] Kelechi Ball Other [facility] Other 02-28-2023 13:15-0400 Respiratory rate 12 /min Kelechi Ball Other [facility] Other 02-28-2023 13:15-0400 Systolic blood pressure 118 mm[Hg] Kelechi Ball Other [facility] Other 01-16-2023 12:30-0400 Body height 165.1 cm Kelechi Ball Other [facility] Other 01-16-2023 12:30-0400 Body mass index (BMI) [Ratio] 52.28 kg/m2 Kelechi Ball Other [facility] Other 01-16-2023 12:30-0400 Body weight 142.52 kg Kelechi Ball Other [facility] Other 01-16-2023 12:30-0400 Diastolic blood pressure 72 mm[Hg] Kelechi Ball Other [facility] Other 01-16-2023 12:30-0400 Respiratory rate 16 /min Kelechi Ball Other [facility] Other 01-16-2023 12:30-0400 Systolic blood pressure 147 mm[Hg] Kelechi Ball Other [facility] Other 01-11-2023 18:10-0400 Body height 165.1 cm Angélica Swann Other [facility] Other 01-11-2023 18:10-0400 Body mass index (BMI) [Ratio] 52.41 kg/m2 Angélica Swann Other [facility] Other 01-11-2023 18:10-0400 Body temperature 99.6 [degF] Angélica Mcqueenmond Other [facility] Other 01-11-2023 18:10-0400 Body weight 142.88 kg Angélica Hue Other [facility] Other 01-11-2023 18:10-0400 Diastolic blood pressure 64 mm[Hg] Angélica Hue Other [facility] Other 01-11-2023 18:10-0400 Respiratory rate 20 /min Angélica Hue Other [facility] Other 01-11-2023 18:10-0400 SaO2% (BldA) [Mass fraction] 96 % Angélica Swann Other [facility] Other 01-11-2023 18:10-0400 Systolic blood pressure 117 mm[Hg] Angélica Hue Other [facility] Other 10-18-2022 12:00-0500 Body height 165.1 cm Kelechi Ball Other [facility] Other 10-18-2022 12:00-0500 Body mass index (BMI) [Ratio] 52.31 kg/m2 Kelechi Ball Other [facility] Other 10-18-2022 12:00-0500 Body weight 142.61 kg Kelechi Ball Other [facility] Other 10-18-2022 12:00-0500 Diastolic blood pressure 84 mm[Hg] Kelechi Ball Other [facility] Other 10-18-2022 12:00-0500 Respiratory rate 12 /min Kelechi Galvan Other [facility] Other 10-18-2022 12:00-0500 Systolic blood pressure 122 mm[Hg] Kelechi Galvan Other [facility] Other Encounters Encounter Date Encounter Type Care Provider Facility Start: 11-27-2023 End: 11-28-2023 ambulatory Joe Becerra MD Facility:[facility] Start: 10-27-2023 End: 10-27-2023 ambulatory [facility] Work Phone: Start: 10-27-2023 End: 10-27-2023 Patient encounter procedure [facility] Work Phone: Start: 10-20-2023 End: 10-20-2023 ambulatory Kelechi Galvan Other [facility] Other Start: 10-20-2023 Encounter by alysha lizarraga Kelechi Galvan [facility] Start: 10-17-2023 End: 10-17-2023 ambulatory Kelechi Galvan Other [facility] Other Start: 10-17-2023 Office outpatient vi sit 15 minutes Kelechi Galvan [facility] Start: 09-22-2023 End: 09-22-2023 ambulatory Kelechi Galvan Other [facility] Other Start: 09-22-2023 Office outpatient vi sit 15 minutes Kelechi Galvan [facility] Start: 09-22-2023 End: 09-22-2023 Patient encounter procedure [facility] Work Phone: Start: 09-08-2023 End: 09-08-2023 ambulatory Kelechi Galvan Other [facility] Other Start: 09-08-2023 Telephone encounter Kelechi Galvan [facility] Start: 08-28-2023 End: 08-28-2023 ambulatory Kelechi Galvan Other [facility] Other Start: 08-28-2023 Telephone encounter Kelechi GRANDA [facility] Start: 08-26-2023 End: 08-26-2023 ambulatory Kelechi Galvan Other [facility] Other Start: 08-26-2023 Telephone encounter Kelechi GRANDA [facility] Start: 08-22-2023 End: 08-22-2023 ambulatory Kelechi Galvan Other [facility] Other Start: 08-22-2023 Encounter for genera l adult medical examination without abnormal findings Kelechi Galvan [facility] Start: 08-22-2023 Periodic preventive med est patient 40-64yrs Kelechi Galvan [facility] Start: 08-22-2023 End: 08-22-2023 Patient encounter procedure [facility] Work Phone: Start: 05-26-2023 End: 05-26-2023 ambulatory Angélica Swann Other [facility] Other Start: 05-26-2023 Office outpatient vi sit 15 minutes Angélica Swann [facility] Start: 04-18-2023 End: 04-18-2023 ambulatory Kelechi Galvan Other [facility] Other Start: 04-18-2023 Office outpatient vi sit 15 minutes Kelechi Galvan [facility] Start: 02-28-2023 End: 02-28-2023 ambulatory Kelechi Galvan Other [facility] Other Start: 02-28-2023 Office outpatient vi sit 15 minutes Kelechi Galvan [facility] Start: 01-19-2023 End: 01-19-2023 ambulatory Kelechi Galvan Other [facility] Other Start: 01-19-2023 Telephone encounter Kelechi GRANDA [facility] Start: 01-16-2023 End: 01-16-2023 ambulatory Kelechi Galvan Other [facility] Other Start: 01-16-2023 Office outpatient vi sit 25 minutes Kelechi Galvan [facility] Start: 01-11-2023 End: 01-11-2023 Patient encounter procedure DIRECTOR OF [employer] Angélica Swann Work Phone: [facility] Work Phone: Start: 01-11-2023 End: 01-11-2023 ambulatory Angélica Swann [facility] Work Phone: Start: 01-11-2023 Office outpatient vi sit 15 minutes Angélica Swann [facility] Start: 01-11-2023 Telephone encounter Kelechi GRANDA [facility] Start: 01-09-2023 Encounter for genera l adult medical examination without abnormal findings DR KELECHI GALVAN [facility] Start: 01-05-2023 End: 01-06-[address] KELECHI GALVAN Facility:[facility] Start: 01-05-2023 End: 01-06-2023 Encounter for general adult medical examination without abnormal findings DR KELECHI GALVAN Facility:[facility] Start: 01-03-2023 End: 01-03-2023 ambulatory Kelechi Galvan Other [facility] Other Start: 01-03-2023 Encounter for genera l adult medical examination without abnormal findings Kelechi Galvan [facility] Start: 01-03-2023 Patient encounter status Conrad Galvan Other [facility] Other Start: 01-03-2023 Telephone encounter Kelechi GRANDA [facility] Start: 12-21-2022 End: 12-22-[address] KELECHI AGLVAN Facility:[facility] Start: 12-08-2022 End: 12-09-[address] KELECHI GALVAN Facility:[facility] Start: 11-23-2022 End: 11-23-2022 ambulatory Kelechi Galvan Other [facility] Other Start: 11-23-2022 Telephone encounter Kelechi GRANDA [facility] Start: 11-16-2022 End: 11-17-[address] KELECHI GALVAN Facility:[facility] Start: 11-09-2022 End: 11-24-[address] KELECHI GALVAN Facility:[facility] Start: 11-03-2022 End: 11-04-[address] KELECHI GALVAN Facility:[facility] Start: 10-27-2022 End: 10-28-[address] KELECHI GALVAN [facility] Other Start: 10-27-2022 Telephone encounter Kelechi GRANDA [facility] Start: 10-18-2022 End: 10-18-2022 ambulatory Kelechi Galvan Other [facility] Other Start: 10-18-2022 Office outpatient vi sit 25 minutes Kelechi Galvan [facility] Start: 10-07-2022 End: 10-07-2022 ambulatory Kelechi Galvan Other [facility] Other Start: 10-07-2022 Telephone encounter Kelechi GRANDA [facility] Start: 08-26-2022 Adult health examination Conrad Galvan Other [facility] Other Start: 07-11-2022 End: 07-12-[address] KELECHI GALVAN Facility:[facility] Start: 04-07-2022 End: 04-08-[address] DEANN ELIAS . Facility:[facility] Start: 07-28-2019 Pre-procedure evalua tion check Kelechi Galvan Other [facility] Other Start: 07-17-2018 Gynecological examination normal Kelechi Galvan Other [facility] Other Procedures Date Procedure Procedure Detail Performing Clinician Start: 01-11-2023 Plain X-ray of right hand [employer] Angélica Swann Work Phone: Start: 01-18-2019 Preoperative cardiov ascular examination Kelechi Galvan Other End: 10-22-2018 Contraception care education Kelechi Galvan Other Depression screening [facility] Other Ligation of fallopian tube B enteresamin [facility] Other Screening for malign ant neoplasm of breast Kelechi Ball Other Plan of Treatment Date Care Activity Detail Author Start: 03-09-2023 ambulatory Ambulatory Facility: 1 Payers Date Payer Category Payer Unknown 2023 Self-pay 1975 Unknown [id number] 2.16.84 [id number] 1975 Unknown [id number] 2.16.84 [id number] 1975 Unknown [id number] 2.16.84 [id number] 1975 Unknown [id number] 2.16.84 [id number] 1975 Unknown [id number] 2.16.84 [id number] 1975 Unknown [id number] 2.16.84 [id number] 1975 Unknown [id number] 2.16.84 [id number] 1975 Unknown [id number] 2.16.84 [id number] 1975 Unknown [id number] 2.16.84 [id number] 1975 Unknown [id number] 2.16.84 [id number] 1975 Unknown [id number] 2.16.84 [id number] 1975 Unknown [id number] 2.16. [id number] 1959 Unknown [id number] 2.1 [id number] 1959 Unknown [id number] Medicaid [place] Advantage [id number] Unknown [id number] 2.16.8 [id number] Social History Date Type Detail Facility Unknown if ever smoked [facility] Other Sex Assigned At Sex Assigned At Bir th [facility] Other Start: 1975 Sex Assigned At Female F [facility] Start: 05-16-2018 Tobacco smoking status NHIS Never smoked tobacco (finding) [facility] Clinical Notes 05-31-2011 to 10-20-2023 Note Date & Type Note Facility 10-20-2023 Evaluation note Encounter Date Diagnosis Assessment Notes Oct, Morbid (severe) obesity due to excess calories (ICD-10 - E66.01) [facility] Other 02-06-2024 Evaluation note* Encounter Date Diagnosis [...] index [BMI] 50.0-59.9, adult (ICD-10 - Z68.43) [facility] Other 01-12-2024 Evaluation note* Encounter Date Diagnosis [...] index [BMI] 50.0-59.9, adult (ICD-10 - Z68.43) [facility] Other 12-29-2023 Evaluation note* Encounter Date Diagnosis Assessment Notes Treatment Notes Treatment Clinical Notes Aug, Prolactinoma (ICD-10 - D35.2) MRI < 10mm, prolactin 80 - 2022 [facility] Other 12-16-2023 Evaluation note* Encounter Date Diagnosis Assessment Notes Treatment Notes Treatment Clinical Notes Aug, Hyperprolactinemia (ICD-10 - E22.1) [facility] Other 12-12-2023 Evaluation note* Encounter Date Diagnosis [...] patient on monthly SBE and yearly mammograms. [facility] Other 09-15-2023 Evaluation note* Encounter Date Diagnosis [...] thoracic region, initial encounter (ICD-10 - S29.019A) [facility] Other 08-08-2023 Evaluation note* Encounter Date Diagnosis Assessment Notes Treatment Notes Treatment Clinical Notes Apr, Sharmin-menopausal (ICD-10 - N95.1) Recommend scheduling appt w/ Slip Operator. Apr, Primary hypertension (ICD-10 - I10) This [...] use of the CPAP for REBA treatment. [facility] Other 06-20-2023 Evaluation note* Encounter Date Diagnosis Assessment Notes Treatment Notes Treatment Clinical Notes Feb, Seborrheic dermatitis of scalp (ICD-10 - L21.9) Keep clean, avoid scratching Stop using Mupirocin Initiate topical steroid ointment Feb, Primary hypertension (ICD-10 - I10) This patient is instructed to consume a healthy, low-fat, low-salt diet. They are also encouraged to continue exercise to achieve/maintain a normal BMI. [facility] Other 05-11-2023 Evaluation note* Encounter Date Diagnosis Assessment Notes Treatment Notes Treatment Clinical Notes January, Type 2 diabetes mellitus with hyperglycemia, without long-term current use of insulin (ICD-10 - E11.65) [facility] Other 05-08-2023 Evaluation note* Encounter Date Diagnosis [...] visual defects. January, Hyperprolactinemia (ICD-10 - E22.1) [facility] Other 05-03-2023 Evaluation note* Encounter Date Diagnosis Assessment Notes Treatment Notes Treatment Clinical Notes January, REBA (obstructive sleep apnea) (ICD-10 - G47.33) AHI 104 w/ Psat 68%, BiPAP 21, full facial mask [facility] Other 05-03-2023 Evaluation note* Encounter Date Diagnosis [...] no improvement in 2 to 3 days [facility] Other 04-25-2023 Evaluation note* Encounter Date Diagnosis Assessment Notes Treatment Notes Treatment Clinical Notes Dec, Type 2 diabetes mellitus with hyperglycemia, without long-term current use of insulin (ICD-10 - E11.65) Dec, Primary hypertension (ICD-10 - I10) Dec, Wellness examination (ICD-10 - Z00.00) [facility] Other 03-30-2023 NoteCONSULTATION CONSULTATION DATE: 12/08/2022 TO: [...] this point for her residual pain symptoms.[id number]* Encounter Date Diagnosis Assessment Notes Treatment Notes Treatment Clinical Notes Nov, REBA (obstructive sleep apnea) (ICD-10 - G47.33) AHI 101 w/ Psat 79% [facility] Other 03-15-2023 Evaluation note* Encounter Date Diagnosis Assessment Notes Treatment Notes Treatment Clinical Notes Nov, REBA (obstructive sleep apnea) (ICD-10 - G47.33) AHI 104 w/ Psat 68% [facility] Other 02-23-2023 NotePAIN MANAGEMENT CONSULTATION CONSULTATION DATE: [...] four weeks' time or sooner if needed.[facility] 11-03-2022 NotePAIN MANAGEMENT CONSULTATION CONSULTATION DATE: [...] on his response to change in medication.[facility] 10-18-2022 Evaluation note* Encounter Date Diagnosis [...] (ICD-10 - R29.818) Referral for sleep study [facility] Other 07-28-2022 NoteCONSULTATION CONSULTATION DATE: 04/07/2022 HISTORY [...] Patient states understanding and all questions answered.[facility] [id number] History general Narrative - Reported* Type Description Date Medical History hypertension Medical History back pain Medical History degenerative disc disease Medical History Prolactinoma Medical History asthma Surgical History C section 05/31/2011 Surgical History IVF 12/01/2008 Surgical History hysterectomy laps assisted 12-11 007 Surgical History right foot sx (planter) Hospitalization History see above Hospitalization History blood transfusion 09/2014 [facility] Other Evaluation noteNo InformationNortWell[facility] Other Evaluation noteNo assessment information available [facility] Work Phone: Evaluation note* Diagnosis Onset Date Resolution Status Type 2 diabetes mellitus with hyperglycemia acute COVID-19 noneactive [facility] Work Phone: History general Narrative - [...] see above Hospitalization History blood transfusion 09/2014 [facility] Other Summary Purpose Family History No Family History Records Found Relationship Condition Age at Onset Recorded Date/T milka father Unknown Malignant neoplasm Unknown Hypertension Unknown Heart disease Unknown Not Specified Malignant neoplasm Unknown History of malignant neoplasm of skin Unk nown Advance Directives No Advanced Directives Records Found Advance Directive Response Recorded Date/ Time Advance [...] month Follow uprefillrash on scalp spreadingHormones/ Thoughts- [phone] in neck and upper backWELLNESSNo Informationlab resultsMR results1 month Follow upadipex reorder1 month Follow up INFORMATION SOURCE (unrecogn ized section and content) DATE CREATED AUTHOR 01/11/2023 [facility] DATE CREATED AUTHOR AUTHOR'S ORGANIZ ATION 01/12/2023 [facility] DATE CREATED AUTHOR AUTHOR'S ORGANIZ ATION 01/01/2024 [facility] Care Teams (unrecognized sec tion and [...] BE BASED ON THE PRIMARY CLINICAL RECORDS. [facility] [employer] [facility]. provides no warranty or guarantee of the accuracy or completeness of information in this document.
--- NOTE | 2024-01-03 07:57 | P.CN_ITS ---
Consult Note: HPI Data of Consult Patient: known to practice within the last 3 years Requesting Physician: Jeny Manley NP Primary Care Provider: Kelechi Galvan, DO Consult Narrative Reason for consult: f/u Narrative: Marie Gray a pleasant 47 year old female presents for evaluation and management of chronic neck pain and back pain. Today pain 3/10 without radiculopathy. patient has had chronic neck and back pain greater than 3 months unresponsive to HEP/PT greater than 6 weeks. Patient has found mild benefit to tylenol, NSAIDs. No relief from baclofen and xanaflex caused cessation. Patient recently underwent bilateral T12, L1 L1,L2 facet RFA with 80% improvement ongoing. Patient also noting benefit from left and right C5,6 C6,7 facet RFA greater than 80% improvement. cc:: CC: Jeny Manley NP Review of Systems ROS Status of ROS 10 or more systems reviewed and unremark able except as noted in history and below Musculoskeletal Reports: back pain and neck pain PFSH PFSH Medical History Diabetes ?E11.9 - Type 2 diabetes mellitus without complications (ICD-10) HTN (hypertension) ?I10 - Essential (primary) hypertension (ICD-10) In vitro fertilization ?Z31.83 - Encounter for assisted reproductive fertility procedure cycle (ICD- 10) Surgical History History of dilation and curettage ?Z98.890 - Other specified postprocedural states (ICD-10) History of tubal ligation ?Z98.51 - Tubal ligation status (ICD-10) History of hysteroscopy ?Z98.890 - Other specified postprocedural states (ICD-10) Previous section ?Z98.891 - History of uterine scar from previous surgery (ICD-10) History of fasciotomy ?Z98.890 - Other specified postprocedural states (ICD-10) History of laparoscopy ?Z98.890 - Other specified postprocedural states (ICD-10) Meds Home Medications and Allergies Home Medications ?Medication ?Instructions ?Recorded ?Confirmed ?Type atenolol 50 mg tablet 50 mg PO DAILY 03/09/23 11/27/23 History dapagliflozin propanediol 5 mg 5 mg PO DAILY 03/09/23 11/27/23 History tablet (Farxiga) dulaglutide 4.5 mg/0.5 mL 4.5 mg subcut QWEEK 03/09/23 11/27/23 History subcutaneous pen injector (Trulicity) furosemide 20 mg tablet 20 mg PO DAILY 03/09/23 11/27/23 History lisinopril 5 mg tablet 5 mg PO DAILY 03/09/23 11/27/23 History metformin 1,000 mg tablet 1,000 mg PO BID 03/09/23 11/27/23 History naproxen 500 mg tablet 500 mg PO BID 03/09/23 11/27/23 History potassium chloride 10 mEq 10 meq PO DAILY 03/09/23 11/27/23 History tablet,extended release (Klor-Con) tizanidine 4 mg tablet (Zanaflex) 4 mg PO DAILY PRN spasm 03/09/23 11/27/23 History diazepam 10 mg tablet 10 mg PO 11/27/23 History Allergies Allergy/AdvReac Type Severity Reaction Status Date / Time Penicillins Allergy Rash Verified 11/27/23 08:08 Exam Constitutional Documenting provider has reviewed patient's vital signs: yes Common normals: no apparent distress, oriented x3, healthy appearing, alert and well nourished General appearance: cooperative Nutritional appearance: obese HENMT Common normals: normocephalic, hearing grossly normal bilaterally and moist oral mucous membranes Head and scalp: normocephalic Eye Common normals: PERRL Pupil: PERRL Neck & C-Spine Common normals: full ROM General: normal visual inspection Cervical spine: paracervical muscle tenderness Chest Common normals: inspection of chest normal Respiratory Common normals: normal respiratory effort, no retractions and no use of accessory muscles Back & Pelvis Thoracic spine/upper back: normal to inspection and thoracic ROM normal Lumbar spine/lower back: normal to inspection and lumbar ROM normal Other: negative facet loading negative radiculopathy Extremity Common normals: normal to inspection and full ROM Neuro Common normals: oriented x3, CN's II-XII intact bilaterally, moves all extremities, no focal motor deficits, no sensory deficits noted and deep tendon reflexes 2+ bilaterally Sensorium/orientation: alert Motor exam: strength 5/5 throughout and no movement abnormalities noted Psych Common normals: mental status grossly normal, thought process normal, cooperative, affect normal, speech normal and activity/motor behavior normal Speech: normal speech Thought process: normal thought process Results Additional Findings Additional findings: If on a controlled substance or opioids, I have checked an [place] report on this patient and there are no aberrancies noted in the prescribing history.??If on a controlled substance or opioid a drug screen was completed and reviewed within the last year, and if there has not been a drug screen completed we ordered one today to monitor higher risk, state monitored pain medication use. As part of providing excellent, safe, comprehensive care, the following was completed at our patient's visit: 1. A medication reconciliation and review to ensure accurate knowledge of current/active medications, including asking our patients to inform us about any [id number] medications or herbal remedies/nutritional supplements/alternative remedies. 2. A review to specifically ensure our patients have had annual screening for screening for depression, screening for tobacco use, and screening for unhealthy alcohol use. For concerning screenings had a discussion with the patient, pro vided patient education, and recommended follow-up with primary care provider when appropriate. If patient noted with a risk of falling, they received education on strength, gait, and balance training to prevent future risk of falling. Assessment and Plan Assessment and Plan (1) Cervical spondylosis: (2) Thoracic spondylosis: (3) Lumbar spondylosis: (4) Muscle spasm: Plan continue current medications continue HEP as tolerated f/u 3 months, sooner if needed
== END 2024-01-03 07:41 | disposition home or self-care (01) ==
LOC: PM 07:40
PROVIDERS: PCP Internal Medicine; Visit Provider Nurse Practitioner
DX: M47.812 Spondylosis without myelopathy or radiculopathy, cervical region (principal); M47.814 Spondylosis without myelopathy or radiculopathy, thoracic region; M47.816 Spondylosis without myelopathy or radiculopathy, lumbar region; M62.838 Other muscle spasm
CPT/HCPCS: G0463

== ENCOUNTER 2024-02-12 12:30 | Emergency (ER) | payer OTHER, SELFPAY ==
[2024-02-12 12:35] VITALS: BP 147/75; PULSE 67; TEMP 36.5; O2SAT 97; BMI 40.9
--- NOTE | 2024-02-12 12:42 | XR_ITS ---
The [address] [address] Patient Name: ELISA SANTOS MRN: [id number] date: 1975 Sex: F Assigned Patient Location: ER Current Patient Location: .[facility] Accession/Order Number: [id number] Exam Date: 02/12/2024 13:00 Report Date: 02/12/2024 13:46 At the request of: LUIS CEDILLO Procedure: XR foot LT min 3V EXAM: XR knee RT 3V, XR nasal bones min 3V, XR ankle LT min 3V, XR foot LT min 3V HISTORY: fall COMPARISON: Right knee study dated 07/03/2018 TECHNIQUE: 3 views of the right knee were obtained. FINDINGS: No definite acute fracture or dislocation. Minimal posterior patellar spurring. No evidence of sizable suprapatellar joint effusion. Soft tissues are grossly within normal limits. 3 views of the left ankle were obtained. FINDINGS: Ankle mortise appears grossly intact. On the frontal view there is suggestion of slight cortical offset of the lateral aspect of the tip of the medial malleolus of the distal tibia which may be artifactually created, undisplaced transverse fracture at this level difficult to exclude entirely. Small faint somewhat linear calcification in the lateral foot level on the frontal view could represent chip/avulsion fracture fragment. Moderate plantar calcaneal spur. Small to moderate posterior calcaneal spur. Mild generalized soft tissue swelling. 3 views of the left foot were obtained. FINDINGS: Small somewhat linear calcification adjacent to the distal aspect of the calcaneus laterally on the frontal view, suspect for chip/avulsion fracture related to the distal lateral calcaneus. Correlate for point tenderness. Moderate size plantar calcaneal spur with mild to moderate size posterior calcaneal spur. Mild degenerative change about the interphalangeal joints and first metatarsophalangeal joint. 3 views of the nasal bones were obtained. FINDINGS: Transverse lucency at the distal nasal bone level which appears to extend bilaterally compatible with essentially undisplaced nasal bone fracture. Anterior nasal spine appears grossly unremarkable. Mild soft tissue swelling. There is a small 0.8 mm opacity at the level of the nasal soft tissue somewhat superficially located near the tip of the nasal bone on the lateral views, correlate to exclude any possibility of opaque foreign body. Mild deviation of the nasal septum to the left of uncertain chronicity. XR/XR foot LT min 3V IMPRESSION: Right knee study fails to demonstrate definite acute fracture or dislocation. Left ankle study demonstrates artifact versus undisplaced fracture of the lateral aspect of the tip of the medial malleolus of the distal tibia. Suspect for acute chip/avulsion fracture fragment of the foot laterally as described. Left foot study demonstrates what is felt to represent small chip/avulsion fracture fragment along the distal, lateral aspect of the calcaneus with mild lateral displacement of the suspected fracture fragment. Nasal bone study demonstrates findings suspect for nasal bone fracture as described. Correlate to exclude any possibility of small somewhat superficially located opaque foreign body at the anterior soft tissue level of the nose as described. Mild deviation of the nasal septum to the left of uncertain chronicity. Follow-up as needed. Electronically authenticated by: SHEFALI ROCHA Date: 02/12/2024 13:46
--- NOTE | 2024-02-12 12:42 | XR_ITS ---
The [address] [address] Patient Name: ELISA SANTOS MRN: [id number] date: 1975 Sex: F Assigned Patient Location: ER Current Patient Location: .[facility] Accession/Order Number: [id number] Exam Date: 02/12/2024 13:00 Report Date: 02/12/2024 13:46 At the request of: LUIS CEDILLO Procedure: XR ankle LT min 3V EXAM: XR knee RT 3V, XR nasal bones min 3V, XR ankle LT min 3V, XR foot LT min 3V HISTORY: fall COMPARISON: Right knee study dated 07/03/2018 TECHNIQUE: 3 views of the right knee were obtained. FINDINGS: No definite acute fracture or dislocation. Minimal posterior patellar spurring. No evidence of sizable suprapatellar joint effusion. Soft tissues are grossly within normal limits. 3 views of the left ankle were obtained. FINDINGS: Ankle mortise appears grossly intact. On the frontal view there is suggestion of slight cortical offset of the lateral aspect of the tip of the medial malleolus of the distal tibia which may be artifactually created, undisplaced transverse fracture at this level difficult to exclude entirely. Small faint somewhat linear calcification in the lateral foot level on the frontal view could represent chip/avulsion fracture fragment. Moderate plantar calcaneal spur. Small to moderate posterior calcaneal spur. Mild generalized soft tissue swelling. 3 views of the left foot were obtained. FINDINGS: Small somewhat linear calcification adjacent to the distal aspect of the calcaneus laterally on the frontal view, suspect for chip/avulsion fracture related to the distal lateral calcaneus. Correlate for point tenderness. Moderate size plantar calcaneal spur with mild to moderate size posterior calcaneal spur. Mild degenerative change about the interphalangeal joints and first metatarsophalangeal joint. 3 views of the nasal bones were obtained. FINDINGS: Transverse lucency at the distal nasal bone level which appears to extend bilaterally compatible with essentially undisplaced nasal bone fracture. Anterior nasal spine appears grossly unremarkable. Mild soft tissue swelling. There is a small 0.8 mm opacity at the level of the nasal soft tissue somewhat superficially located near the tip of the nasal bone on the lateral views, correlate to exclude any possibility of opaque foreign body. Mild deviation of the nasal septum to the left of uncertain chronicity. XR/XR ankle LT min 3V IMPRESSION: Right knee study fails to demonstrate definite acute fracture or dislocation. Left ankle study demonstrates artifact versus undisplaced fracture of the lateral aspect of the tip of the medial malleolus of the distal tibia. Suspect for acute chip/avulsion fracture fragment of the foot laterally as described. Left foot study demonstrates what is felt to represent small chip/avulsion fracture fragment along the distal, lateral aspect of the calcaneus with mild lateral displacement of the suspected fracture fragment. Nasal bone study demonstrates findings suspect for nasal bone fracture as described. Correlate to exclude any possibility of small somewhat superficially located opaque foreign body at the anterior soft tissue level of the nose as described. Mild deviation of the nasal septum to the left of uncertain chronicity. Follow-up as needed. Electronically authenticated by: SHEFALI ROCHA Date: 02/12/2024 13:46
--- NOTE | 2024-02-12 12:49 | XR_ITS ---
The [address] [address] Patient Name: ELISA SANTOS MRN: [id number] date: 1975 Sex: F Assigned Patient Location: ER Current Patient Location: [facility] Accession/Order Number: [id number] Exam Date: 02/12/2024 13:00 Report Date: 02/12/2024 13:46 At the request of: LUIS CEDILLO Procedure: XR nasal bones min 3V EXAM: XR knee RT 3V, XR nasal bones min 3V, XR ankle LT min 3V, XR foot LT min 3V HISTORY: fall COMPARISON: Right knee study dated 07/03/2018 TECHNIQUE: 3 views of the right knee were obtained. FINDINGS: No definite acute fracture or dislocation. Minimal posterior patellar spurring. No evidence of sizable suprapatellar joint effusion. Soft tissues are grossly within normal limits. 3 views of the left ankle were obtained. FINDINGS: Ankle mortise appears grossly intact. On the frontal view there is suggestion of slight cortical offset of the lateral aspect of the tip of the medial malleolus of the distal tibia which may be artifactually created, undisplaced transverse fracture at this level difficult to exclude entirely. Small faint somewhat linear calcification in the lateral foot level on the frontal view could represent chip/avulsion fracture fragment. Moderate plantar calcaneal spur. Small to moderate posterior calcaneal spur. Mild generalized soft tissue swelling. 3 views of the left foot were obtained. FINDINGS: Small somewhat linear calcification adjacent to the distal aspect of the calcaneus laterally on the frontal view, suspect for chip/avulsion fracture related to the distal lateral calcaneus. Correlate for point tenderness. Moderate size plantar calcaneal spur with mild to moderate size posterior calcaneal spur. Mild degenerative change about the interphalangeal joints and first metatarsophalangeal joint. 3 views of the nasal bones were obtained. FINDINGS: Transverse lucency at the distal nasal bone level which appears to extend bilaterally compatible with essentially undisplaced nasal bone fracture. Anterior nasal spine appears grossly unremarkable. Mild soft tissue swelling. There is a small 0.8 mm opacity at the level of the nasal soft tissue somewhat superficially located near the tip of the nasal bone on the lateral views, correlate to exclude any possibility of opaque foreign body. Mild deviation of the nasal septum to the left of uncertain chronicity. XR/XR nasal bones min 3V IMPRESSION: Right knee study fails to demonstrate definite acute fracture or dislocation. Left ankle study demonstrates artifact versus undisplaced fracture of the lateral aspect of the tip of the medial malleolus of the distal tibia. Suspect for acute chip/avulsion fracture fragment of the foot laterally as described. Left foot study demonstrates what is felt to represent small chip/avulsion fracture fragment along the distal, lateral aspect of the calcaneus with mild lateral displacement of the suspected fracture fragment. Nasal bone study demonstrates findings suspect for nasal bone fracture as described. Correlate to exclude any possibility of small somewhat superficially located opaque foreign body at the anterior soft tissue level of the nose as described. Mild deviation of the nasal septum to the left of uncertain chronicity. Follow-up as needed. Electronically authenticated by: SHEFALI ROCHA Date: 02/12/2024 13:46
--- NOTE | 2024-02-12 12:50 | XR_ITS ---
The [address] [address] Patient Name: ELISA SANTOS MRN: [id number] date: 1975 Sex: F Assigned Patient Location: ER Current Patient Location: [facility] Accession/Order Number: [id number] Exam Date: 02/12/2024 13:00 Report Date: 02/12/2024 13:46 At the request of: LUIS CEDILLO Procedure: XR knee RT 3V EXAM: XR knee RT 3V, XR nasal bones min 3V, XR ankle LT min 3V, XR foot LT min 3V HISTORY: fall COMPARISON: Right knee study dated 07/03/2018 TECHNIQUE: 3 views of the right knee were obtained. FINDINGS: No definite acute fracture or dislocation. Minimal posterior patellar spurring. No evidence of sizable suprapatellar joint effusion. Soft tissues are grossly within normal limits. 3 views of the left ankle were obtained. FINDINGS: Ankle mortise appears grossly intact. On the frontal view there is suggestion of slight cortical offset of the lateral aspect of the tip of the medial malleolus of the distal tibia which may be artifactually created, undisplaced transverse fracture at this level difficult to exclude entirely. Small faint somewhat linear calcification in the lateral foot level on the frontal view could represent chip/avulsion fracture fragment. Moderate plantar calcaneal spur. Small to moderate posterior calcaneal spur. Mild generalized soft tissue swelling. 3 views of the left foot were obtained. FINDINGS: Small somewhat linear calcification adjacent to the distal aspect of the calcaneus laterally on the frontal view, suspect for chip/avulsion fracture related to the distal lateral calcaneus. Correlate for point tenderness. Moderate size plantar calcaneal spur with mild to moderate size posterior calcaneal spur. Mild degenerative change about the interphalangeal joints and first metatarsophalangeal joint. 3 views of the nasal bones were obtained. FINDINGS: Transverse lucency at the distal nasal bone level which appears to extend bilaterally compatible with essentially undisplaced nasal bone fracture. Anterior nasal spine appears grossly unremarkable. Mild soft tissue swelling. There is a small 0.8 mm opacity at the level of the nasal soft tissue somewhat superficially located near the tip of the nasal bone on the lateral views, correlate to exclude any possibility of opaque foreign body. Mild deviation of the nasal septum to the left of uncertain chronicity. XR/XR knee RT 3V IMPRESSION: Right knee study fails to demonstrate definite acute fracture or dislocation. Left ankle study demonstrates artifact versus undisplaced fracture of the lateral aspect of the tip of the medial malleolus of the distal tibia. Suspect for acute chip/avulsion fracture fragment of the foot laterally as described. Left foot study demonstrates what is felt to represent small chip/avulsion fracture fragment along the distal, lateral aspect of the calcaneus with mild lateral displacement of the suspected fracture fragment. Nasal bone study demonstrates findings suspect for nasal bone fracture as described. Correlate to exclude any possibility of small somewhat superficially located opaque foreign body at the anterior soft tissue level of the nose as described. Mild deviation of the nasal septum to the left of uncertain chronicity. Follow-up as needed. Electronically authenticated by: SHEFALI ROCHA Date: 02/12/2024 13:46
--- NOTE | 2024-02-12 12:50 | ED.FALL1 ---
HPI HPI - Fall General Chief Complaint: Fall Stated Complaint: FALL Time Seen by Provider: 02/12/24 12:41 History of Present Illness HPI Narrative: This patient is here for evaluation of falling. [place] when walking down the steps her left ankle turned rolled and gave way. She then fell striking her knee rolling the ankle and then she hit her nasal area. She had no loss of consciousness she remembers all events clearly with no evidence of concussion syndrome. She does not have any pain in her neck or the forehead area. She did not sustain any injuries to the upper extremities. She is not on any blood thinners. She is a good historian shows no evidence of a head or neck injury. Her GCS is 15 Related Data Home Medications ?Medication ?Instructions ?Recorded ?Confirmed atenolol 50 mg tablet 50 mg PO DAILY 03/09/23 11/27/23 dapagliflozin propanediol 5 mg 5 mg PO DAILY 03/09/23 11/27/23 tablet (Farxiga) dulaglutide 4.5 mg/0.5 mL 4.5 mg subcut QWEEK 03/09/23 11/27/23 subcutaneous pen injector (Trulicity) furosemide 20 mg tablet 20 mg PO DAILY 03/09/23 11/27/23 lisinopril 5 mg tablet 5 mg PO DAILY 03/09/23 11/27/23 metformin 1,000 mg tablet 1,000 mg PO BID 03/09/23 11/27/23 naproxen 500 mg tablet 500 mg PO BID 03/09/23 11/27/23 potassium chloride 10 mEq 10 meq PO DAILY 03/09/23 11/27/23 tablet,extended release (Klor-Con) tizanidine 4 mg tablet (Zanaflex) 4 mg PO DAILY PRN spasm 03/09/23 11/27/23 diazepam 10 mg tablet 10 mg PO 11/27/23 Allergies Allergy/AdvReac Type Severity Reaction Status Date / Time Penicillins Allergy Rash Verified 11/27/23 08:08 Opioid HPI Opioid Management Most Recent Pain and Opioid Data: Last Pain Scale 5 11/27/23 08:03 Last MAR Pain Assessment 02/12/24 13:28 PFSH PFSH Medical History Diabetes ?E11.9 - Type 2 diabetes mellitus without complications (ICD-10) HTN (hypertension) ?I10 - Essential (primary) hypertension (ICD-10) In vitro fertilization ?Z31.83 - Encounter for assisted reproductive fertility procedure cycle (ICD-10) Surgical History History of dilation and curettage ?Z98.890 - Other specified postprocedural states (ICD-10) History of tubal ligation ?Z98.51 - Tubal ligation status (ICD-10) History of hysteroscopy ?Z98.890 - Other specified postprocedural states (ICD-10) Previous section ?Z98.891 - History of uterine scar from previous surgery (ICD-10) History of fasciotomy ?Z98.890 - Other specified postprocedural states (ICD-10) History of laparoscopy ?Z98.890 - Other specified postprocedural states (ICD-10) Exam Narrative Exam Narrative: Patient is awake alert good historian. Denies any head or neck pain. She does have an abrasion over the bridge of the nose and the upper lip. Her dentition is in good repair with no evidence of dental trauma puncture wounds or other abnormalities. She has no tenderness over the TMJ or mandibular area. No tenderness over the neck. There is no swelling of the forehead or the calvarium. Examining the area of injury she has a minor abrasion to the right knee no effusion at this time but the patella is slightly tender. Range of motion is unrestricted. Examining her left lower extremity she has discomfort in the ankle mortise and the dorsum of the foot. No gross deformity or obvious swelling or ecchymosis at this time. The rest the extremity examination upper and lower limbs is normal. She does not have any abdominal or rib discomfort. Constitutional Vital Signs, click to edit/add: Last Vital Signs Temp 97.7 F 02/12/24 12:35 Pulse 67 02/12/24 12:35 Resp 16 02/12/24 12:35 BP 147/75 H 02/12/24 12:35 Pulse Ox 97 02/12/24 12:35 O2 Del Method Room Air 02/12/24 12:35 Course Vital Signs Vital signs: Vital Signs Temperature 97.7 F 02/12/24 12:35 Pulse Rate 67 02/12/24 12:35 Respiratory Rate 16 02/12/24 12:35 Blood Pressure 147/75 H 02/12/24 12:35 Pulse Oximetry 97 02/12/24 12:35 Oxygen Delivery Method Room Air 02/12/24 12:35 Temperature 97.7 F 02/12/24 12:35 Pulse Rate 67 02/12/24 12:35 Respiratory Rate 16 02/12/24 12:35 Blood Pressure 147/75 H 02/12/24 12:35 Pulse Oximetry 97 02/12/24 12:35 Oxygen Delivery Method Room Air 02/12/24 12:35 MDM - Fall MDM Narrative Medical decision making narrative: X-rays show a nondisplaced fracture of the distal nasal bone #1 #2 suspected fracture of the medial malleolus of the ankle and also suspected nondisplaced fracture of the calcaneus in the foot. We will place her on crutches nonweightbearing ice elevation analgesics and following up with podiatry. She does not display any evidence of al cranial cervical problems. She wants to go back to work but I emphasized that she should stay nonweightbearing until her foot injuries can be clarified by local podiatry. Discharge Plan Discharge Stand Alone Forms: Portal Instructions Chief Complaint: Fall Clinical Impression: Closed fracture nasal bone, Foot fracture, left Patient Disposition: Home, Self-Care Time of Disposition Decision: 14:37 Prescriptions / Home Meds: No Action atenolol 50 mg tablet 50 mg PO DAILY dapagliflozin propanediol [Farxiga] 5 mg tablet 5 mg PO DAILY furosemide 20 mg tablet 20 mg PO DAILY potassium chloride [Klor-Con 10] 10 mEq tablet extended release 10 meq PO DAILY lisinopril 5 mg tablet 5 mg PO DAILY naproxen 500 mg tablet 500 mg PO BID Trulicity 4.5 mg/0.5 mL pen injector 4.5 mg subcut QWEEK tizanidine [Zanaflex] 4 mg tablet 4 mg PO DAILY PRN (Reason: spasm) metformin 1,000 mg tablet 1,000 mg PO BID diazepam 10 mg tablet 10 mg PO Print Language: Brazilian Additional Instructions: Ice/rest/crutches/follow-up with podiatry Dr. John Soto Referrals: Kelechi Galvan DO [Primary Care Provider] - 1 week
[2024-02-12] MEDS: KETOROLAC TROMETHAMINE 10 MG TABLET 20 MG PO (13:28)
== END 2024-02-12 15:00 | disposition home or self-care (01) ==
PROVIDERS: Emergency Provider Emergency Medicine Emergency Medical Services; PCP Internal Medicine
DX: S02.2XXA Fracture of nasal bones, initial encounter for closed fracture (principal); S92.902A Unspecified fracture of left foot, initial encounter for closed fracture; W10.9XXA Fall (on) (from) unspecified stairs and steps, initial encounter
CPT/HCPCS: 70160; 73562; 73610; 73630; 99284

== ENCOUNTER 2024-03-27 07:37 | Outpatient (OUT) | payer OTHER, SELFPAY ==
--- OUTSIDE RECORDS SUMMARY | 2024-03-27 07:44 | XMS_ITS | CCD ---
Author Organization [facility] CliniSytn Care Team Providers [employer] Name Role Phone Kelechi Galvan Unavailable COLE, DR CULVER Primary Care Unavailable LAKSHMIPATHY ., NARENDRANATH Admitting Bebe vailable LAKSHMIPATHY ., NARENDPAULA Consulting Bebe vailable LAKSHMIPATHY ., ERINN Attending Bebe vailable ELIAS ., DR DEANN Mcguire Attending Unavailable BALL, DR CULVER Primary Care Unavailable ELIAS ., DR DEANN Mcguire Admitting Unavailable HUNG ., YOGESH Consulting Unavailable COLE, DR CULVER Primary Care Unavailable LAKSHMIPATHY ., ERINN Consulting Bebe vailable LAKSHMIPATHY ., NARENDMERIATH Attending [...] Care Unavailable BALL, DR CULVER Consulting Unavailable BALL, DR CULVER Attending Unavailable BALL, DR CULVER Admitting Unavailable BALL, DR CULVER Primary Care Unavailable LAKSHMIPATHY ., NARENDRANATH Admitting Bebe vailable LAKSHMIPATHY ., NARENDPAULA Attending Bebe vailable ZIEBER, DR FELIPE Santiago Consulting Unavailable LAKSHMIPATHY ., ERINN Consulting Bebe vailable BALL, DR CULVER Primary Care Unavailable BALL, DR CULVER Consulting Unavailable BALL, DR CULVER Attending Unavailable BALL, DR CULVER Admitting Unavailable BALL, DR CULVER Consulting Unavailable COLE, DR CULVER Attending Unavailable BALL, DR CULVER Primary Care Unavailable COLE, DR CULVER Admitting Unavailable WEST, DR ANGELA Orellana Consulting Unavailable BALL, DR CULVER Consulting Unavailable BALL, DR CULVER Attending Unavailable BALL, DR CULVER Admitting Unavailable BALL, DR KELECHI Primary Care Unavailable DR KELECHI GALVAN Primary Care Unavailable LAKSHMIPATHY ., NARENDRANATH Admitting Bebe vailable FRANCISCO J ., NARENDRANATH Attending Bebe vailable Angélica Swann Unavailable Angélica Swann Attending Unavailable Angélica Swann Admitting Unavailable TRINI Swann Attending Provider [phone] Hernan BURGESS, Joe Ko Attending Unavailable Allergies Allergy Classification Reported Allergen(s) Allergy Type Date of Onset Reaction(s) Facility (13 sources) Penicillin G Drug Allergy pt doesn't remember [employer] Other (2 sources) Penicillins Drug allergy (disorder) 3 [facility] (12 sources) Doxycycline Drug Allergy 4 Unknown, Unknown Reaction [facility] (2 sources) Penicillin Drug Allergy Unknown [facility] Other (9 sources) Penicillin G Benzathine & Proc Drug allergy 7 Unknown [facility] Other (2 sources) patient allergy list reviewed by nurse or physicia Propensity to adverse reactions 4 Comment:Done [employer] Other (2 sources) Allergies Reconciled Propensity to adverse reactions Unknown [facility] Other (3 sources) Penicillin G Benzathine Allergy to substance 4 Unknown Reaction [facility] Medications Current Medications Medication Drug Class(es) Dates Sig (Normalized) Sig (Original) atenolol 50 mg oral tablet (20 sources) beta-Adrenergic Selin Start: 10-27-2023 take 50 mg by mouth once daily Atenolol Active 50 MG PO Daily October 27, 2023 1:00am take 1 tablet by mouth once paty y Atenolol 50 MG TAKE 1 TABLET BY MOUTH EVERY DAY Active Atenolol Not-Anuj ing/PRN Atenolol Not-Anuj ing Atenolol Active cetirizine hydrochloride 10 mg oral tablet (9 sources) Histamine-1 Receptor Antagonist Start: 10-27-2023 take 10 mg by mouth once daily Cetirizine Active 10 MG PO Daily October 27, 2023 1:00am take 1 tablet by mouth once paty y Cetirizine HCl 10 MG TAKE 1 TABLET BY MOUTH EVERY DAY for 90 Active dapagliflozin 5 mg oral tablet (14 sources) Sodium-Glucose Cotransporter 2 Inhibitor Start: 10-27-2023 take 1 tablet by mouth once daily Dapagliflozin Propanediol (Farxiga) 5 mg tablet Active 5 MG PO Daily October 27, 2023 1:00am Start: 01-16-2023 take 1 tablet by muna th every twenty-four hours Farxiga 5 MG 1 tablet Orally Once a day January, Active 0.5 ML dulaglutide 9 MG/ML Auto-Injector [Trulicity] (20 sources) GLP-1 Receptor Agonist Start: 10-18-2022 inject 4.5 mg by subcutaneous injection every [...] MG/0.5ML INJECT 4.5 MG SUBCUTANEOUSLY WEEKLY Active Dulaglutide (Trulicity) 4.5 mg/0.5 mL pen injector (2 sources) Start: 10-27-2023 Dulaglutide (Trulicity) 4.5 mg/0.5 mL pen injector Active 4.5 MG SUBCUT every week October 27, 2023 1:00am escitalopram 10 mg oral tablet (12 sources) Serotonin Reuptake Inhibitor Start: 10-27-2023 take 10 mg by mouth once daily Escitalopram Oxalate Active 10 MG PO Daily October 27, 2023 1:00am Start: 04-18-2023 take 1 tablet by muna th every twenty-four hours Lexapro 10 MG 1 tablet Orally Once a day Apr, Active furosemide 20 mg oral tablet (20 sources) Loop Diuretic Start: 10-27-2023 take 20 mg by mouth once daily Furosemide Active 20 MG PO Daily October 27, 2023 1:00am take 1 tablet by muna th every twenty-four hours Furosemide 20 MG 1 tablet Orally Once a day Active Furosemide Activ e lisinopril 5 mg oral tablet (20 sources) Angiotensin Converting Enzyme Inhibitor Start: 10-27-2023 take 5 mg by mouth once daily Lisinopril Active 5 MG PO Daily October 27, 2023 1:00am take 1 tablet by mouth once paty y Lisinopril 5 MG TAKE 1 TABLET BY MOUTH EVERY DAY Active Lisinopril Not-T aking/PRN Lisinopril Not-T aking Lisinopril Activ e metFORMIN hydrochloride 1000 mg oral tablet (10 sources) Biguanide Start: 10-27-2023 take 1000 mg by mouth twice daily Metformin Active 1000 MG PO Twice daily October 27, 2023 1:00am Start: 04-19-2023 take 1 tablet by muna th every twelve hours metFORMIN HCl 1000 MG 1 tablet Orally twice a day Apr, Active LangticeTouch Ultra - (8 sources) The Local Ultra - USE 1 STRIP TO CHECK HOME BLOOD SUGAR for 25 Active phentermine hydrochloride 37.5 mg oral tablet (14 sources) Sympathomimetic Amine Anorectic Start: End: take 37.5 mg by mouth once daily before breakfast Phentermine Active 37.5 MG PO Daily January 19, 2024 5:54pm before breakfast Start: 10-23-2023 take 1 tablet by muna th once daily before breakfast Adipex-P 37.5 MG 1 tablet before breakfast Orally Once a day for 30 days Rx #3 Oct, Active Start: 09-22-2023 take 1 tablet by muna th once daily before breakfast Adipex-P 37.5 MG 1 tablet before breakfast Orally Once a day Rx #2 Sep, Active Start: 08-22-2023 take 1 tablet by muna th once daily before breakfast Adipex-P 37.5 MG 1 tablet before breakfast Orally Once a day for 30 days Rx #1 Aug, Active Potassium (10 sources) Start: 10-27-2023 take 1 mg by mouth o nce daily Potassium Active MG PO Daily October 27, 2023 1:00am take 1 tablet by mouth once paty y Potassium 99 MG 1 tablet Orally Once a day Active Potassium Active tiZANidine 4 mg oral tablet (20 sources) Central alpha-2 Adrenergic Agonist Start: 10-27-2023 take 4 mg by mouth once daily at bedtime Tizanidine Active 4 MG PO Daily at bedtime October 27, 2023 1:00am take 1 tablet by muna th once daily at bedtime tiZANidine HCl 4 MG TAKE 1 TABLET BY MUNA TH EVERYDAY AT BEDTIME for 30 Active take 1 tablet by mouth every eig ht hours tiZANidine HCl 4 MG 1 tablet as needed Orally every 8 hrs Active Completed/Discontinued Medications Medication Drug Class(es) Dates Sig (Normalized) Sig (Original) baclofen 10 mg oral tablet (9 sources) gamma-Aminobutyri c Acid-ergic Agonist Start: 10-27-2023 End: 01-27-2024 take 10 mg by mouth twice daily Baclofen Discontinued 10 MG PO Twice daily October 27, 2023 1:00am January 27, 2024 1:15pm take 1 tablet by mouth every twe lve hours Baclofen 10 MG 1 tablet as needed Orally Twice a day Active cabergoline 0.5 mg oral tablet (20 sources) Ergot Derivative take 1 tablet by mouth two times weekly as needed Cabergoline 0.5 MG 1 tablet Orally 2 times a week Not-Taking/PRN Dexamethasone / Neomycin / Polymyxin B (20 sources) Aminoglycoside Antibacterial, Polymyxin-class Antibacterial, Corticosteroid Start: 09-13-19 take 2 drop(s) into the eye(s) three times daily as needed Maxitrol 3.5-20667-1.1 2 drops into affected eye Ophthalmic Three times a day for 7 days Sep, Not-Taking/PRN Start: 09-13-2020 take 2 drop(s) into the eye(s) three times daily Maxitrol 3.5-44564-8.1 2 drops into affected eye Ophthalmic Three times a day for 7 days Sep, Not-Taking Start: 09-13-2020 take 2 drop(s) into the eye(s) three times daily Maxitrol 3.5-72228-3.1 2 drops into affected eye Ophthalmic Three times a day for 7 days Sep, Active Ketorolac (20 sources) Nonsteroidal Anti-inflammatory Drug, Cyclooxygenase Inhibitor Start: 06-22-2019 Toradol per 15 mg Jun, 30 mg methylPREDNISolone (20 sources) Corticosteroid Start: 03-09-2015 Depo-Medrol 80 mg Feb, 80 mg Nirmatrelvir-Ritonavir (Paxlovid) 300 mg (150 mg x 2)-100 mg tablets,dose pack (3 sources) Start: 10-27-2023 End: 12-20-2023 take 2 tablets by mouth once, then take 1 tablet by mouth twice daily Nirmatrelvir-Rit onavir (Paxlovid) 300 mg (150 mg x 2)-100 mg tablets,dose pack Discontinued 0 PO per package directions 07 02October 27, 2023 1:00am December 20, 2023 6:10pm take TWO 150 mg tablets of nirmatrelvir with ONE 100 mg tablet of ritonavir twice daily for 5 days orally per package directions; Start: 10-27-2023 take 2 tablets by mo ut once, then take 1 tablet by mouth twice daily Nirmatrelvir-Ritonavir (Paxlovid) 300 mg (150 mg x 2)-100 mg tablets,dose pack Active 0 PO per package directions 07 02October 27, 2023 12:00am take TWO 150 mg tablets of nirmatrelvir with ONE 100 mg tablet of ritonavir twice daily for 5 days orally per package directions; predniSONE 20 mg oral tablet (8 sources) Start: 05-26-2023 take 1 tablet by mouth every twelve hours predniSONE 20 MG 1 tablet Orally bid for 5 day(s) May, Not-Taking/PRN Toradol 30 mg/ml (8 sources) Start: 05-26-2023 Toradol 30 mg/ ml May, 30 mg triamcinolone acetonide 5 mg/ml topical cream (20 sources) Corticosteroid Start: 10-27-2023 End: 01-27-2024 Triamcinolone Acetonide Discontinued 1 APPLIC TOPICAL Twice daily October 27, 2023 1:00am January 27, 2024 1:16pm Start: 05-26-2023 Kenalog-40 May, 40 mg Start: 02-28-2023 Triamcinolone Acetonide 0.5 % 1 application Externally Twice a day for 14 days Feb, Not-Taking Start: 06-22-2019 KENALOG - 10 dre g Jun, 40 mg Start: 01-10-2016 KENALOG [...] sources) High risk drug monitoring status; 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: [[facility] (current) use of opiate analgesic] Episodic Other [...] nutritional; endocrine; and metabolic disorders (4 sources) Obesity; 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: [Obesity, unspecified] 01-15-2024 Chronic Other nutritional; endocrine; and metabolic disorders [...] due to excess calories] 10-27-2023 Chronic Other nutritional; endocrine; and metabolic disorders (1 source) Obesity, unspecified; 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: [Obesity, unspecified] 01-15-2024 Chronic Other screening for suspected conditions (not [...] of unspecified site] Episodic Residual codes; unclassified (20 sources) Obstructive sleep apnea syndrome; 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: [Obstructive sleep apnea (adult) (pediatric)] 01-13-2024 Chronic Residual codes; unclassified (11 sources) Obstructive sleep apnea (adult) (pediatric); 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: [Obstructive sleep apnea (adult)(pediatric)] Onset: 3 Chronic Residual codes; unclassified (2 [...] [Ankle sprain] Onset: 9 Episodic Viral infection (6 sources) Herpesviral vesicular dermatitis; 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: [Herpesviral vesicular [...] 3V*on 023 XR hand RT min 3V* [facility] [place] [address] XRay Report Signed Patient: Jing Gray MR#: [id number] 1 : 1975 Acct:[id number] Age/Sex: 47 / F ADM Date: 01/11/23 Loc: XDUCLY Room: Type: [facility] Attending Dr: Angélica FELIZ Copies to: [...] Blake Marino M.D.01/11/2023 6:08 PM Dictation Location: [place] [address] Transcribed By: [facility] 01/11/231807 Dictated By: Blake Marino DO 01/11/231806 Signed By: 01/11/23 180 Normal [facility] XR hand RT min 3V* [facility] [employer] Other XR hand RT min 3V* [facility] [employer] Other XR hand RT min 3V* [address] [place] [address] [employer] Other XR hand RT min 3V* [place] [employer] Other XR hand RT min 3V* XRay Report [employer] [facility] [employer] Other XR hand RT min 3V* Signed [employer] Other XR hand RT min 3V* Patient: Jing Gray MR#: [id number] [facility] [employer] Other XR hand RT min 3V* 1 [employer] Other XR hand RT min 3V* : 1975 Acct:[id number] [place] [employer] Other XR hand RT min 3V* Age/Sex: 47 / F ADM Date: 01/11/23 [employer] Other XR hand RT min 3V* Loc: XDUCLY Room: Type: [facility] [employer] Other XR hand RT min 3V* Attending Dr: Angélica FELIZ [employer] Other XR hand RT min 3V* Copies to: TRINI Alvarado [employer] Other XR hand RT min 3V* Ordering Provider: TRINI Alvarado [employer] Other XR hand RT min 3V* Date of Service: 01/11/23 [email or web address] Other XR hand RT min 3V* XR/XR hand RT min 3V*: RIGHT HAND INJURY [employer] Other XR hand RT min 3V* 3 views right hand plain film [email or web address] Other XR hand RT min 3V* COMPARISON: None [employer] Other XR hand RT min 3V* HISTORY: Fourth and fifth metacarpal injury [employer] Other XR hand RT min 3V* ACUTE FINDINGS: None [employer] Other XR hand RT min 3V* DEGENERATIVE CHANGE: Unremarkable [employer] Other XR hand RT min 3V* SOFT TISSUE FINDINGS: Unremarkable [employer] Other XR hand RT min 3V* JOINT EFFUSION: None [employer] Other XR hand RT min 3V* POSTOP CHANGES: None [employer] Other XR hand RT min 3V* BONY MINERALIZATION: Adequate [employer] Other XR hand RT min 3V* XR/XR hand RT min 3V* [employer] Other XR hand RT min 3V* IMPRESSION: No acute findings [email or web address] Other XR hand RT min 3V* Impression dictated by: Blake Marino M.D.01/11/2023 6:08 PM [email or web address] Other XR hand RT min 3V* Dictation Location: [address] [employer] Other XR hand RT min 3V* Transcribed By: [facility] 01/11/231807 [email or web address] Other XR hand RT min 3V* Dictated By: Blake Marino DO 01/11/231806 [employer] Other XR hand RT min 3V* Signed By: [email or web address] Other XR hand RT min 3V* 01/11/231807 [facility] [employer] Other PROLACTINon 01-06-2023 Prolactin 34.5 ng/mL Critically high 4.8-23.3 [facility] Comment on above: Performed By: #### P ROLAC #### [facility] [address] [place] [address] [address] Digna Thomas CBC AUTO DIFFon 01-05-2023 BASO # 0.1 103/ul Normal 0.0-0.1 [facility] Comment on above: Performed By: #### C BC ####[facility] [address] [place] [address]DrNile Thomas Basophils/100 WBC (Bld) 0.8 % Normal 0.2-2.0 [facility] Comment on above: Performed By: #### C BC ####[facility] [address] [place] [address]DrNile Thomas EO # 0.5 103/ul Normal 0.0-0.7 [facility] Comment on above: Performed By: #### C BC ####[facility] [address] [place] [id number]. Digna Thomas Eosinophils/100 WBC (Bld) 5.0 % Normal 0.9-7.0 [facility] Comment on above: Performed By: #### C BC ####[facility] [address] [place] [address]Dr. Digna Thomas Erythrocyte distribution width (RBC) [Ratio] 13.0 % Normal 11.0-15.0 [facility] Comment on above: Performed By: #### C BC ####[facility] [address] [place], [place] [address]Dr. Digna Thomas Hematocrit (Bld) [Volume fraction] 44.6 % Normal 36.0-48.0 [facility] Comment on above: Performed By: #### C BC ####[facility] [address] [place], [place] [address]Dr. Digna Thomas Hemoglobin (Bld) [Mass/Vol] 14.4 g/dL Normal 12.0-16.0 [facility] Comment on above: Performed By: #### C BC ####[facility] [address] [place], [place] [address]Dr. Digna Thomas IG # 0.05 10e3/ul Critically high 0.00-0.03 [facility] Comment on above: Performed By: #### C BC ####[facility] [address] [place], [place] [address]Dr. Digna Thomas IG % 0.5 % Normal 0.0-0.5 [facility] Comment on above: Performed By: #### C BC ####[facility] [address] [place], [place] [address]Dr. Digna Thomas LYMPH # 2.3 103/ul Normal 1.2-3.8 [facility] Comment on above: Performed By: #### C BC ####[facility] [address] [place], [place] [address]Dr. Digna Thomas Lymphocytes/100 WBC (Bld) 23.0 % Normal 20.5-60.0 [facility] Comment on above: Performed By: #### C BC ####[facility] [address] [place] [id number]. Digna Thomas MANUAL DIFF REQ NO Normal [facility] Comment on above: Performed By: #### C BC ####[facility] [address] [place] [id number]. Digna Thomas MCH (RBC) [Entitic mass] 28.3 pg Normal 26.7-34.0 [facility] Comment on above: Performed By: #### C BC ####[facility] [address] [place], [place] [address]Dr. Digna Thomas MCHC (RBC) [Mass/Vol] 32.3 g/dL Normal 29.9-35.2 [facility] Comment on above: Performed By: #### C BC ####[facility] [address] [place], [place] [address]Dr. Digna William MCV (RBC) [Entitic vol] 87.8 fL Normal 81.0-99.0 [facility] Comment on above: Performed By: #### C BC ####[facility] [address] [place], [place] [address]Dr. Digna Thomas MONO # 0.8 103/ul Normal 0.3-0.8 [facility] Comment on above: Performed By: #### C BC ####[facility] [address] [place] [address]Dr. Anajs Thomas Monocytes/100 WBC (Bld) 7.9 % Normal 1.7-12.0 [facility] Comment on above: Performed By: #### C BC ####[facility] [address] [place], [place] [address]Dr. Digna Thomas NEUT # 6.3 103/ul Normal 1.4-6.5 [facility] Comment on above: Performed By: #### C BC ####[facility] [address] [place], [place] [address]Dr. Anajs Thomas Neutrophils/100 WBC (Bld) 62.8 % Normal 43.0-75.0 [facility] Comment on above: Performed By: #### C BC ####[facility] [address] [place], [place] [address]Bt. Digna Thomas Platelet mean volume (Bld) [Entitic vol] 9.9 fL Normal 9.5-13.5 [facility] Comment on above: Performed By: #### C BC ####[facility] [address] [place], [place] [address]Qk. Digna Thomas PLT 223 103/ul Normal 150-450 [facility] Comment on above: Performed By: #### C BC ####[facility] [address] [place] [id number]. Digna Thomas RBC 5.08 106/ul Normal 4.20-5.40 [facility] Comment on above: Performed By: #### C BC ####[facility] [address] [place] [id number]. Digna Thomas WBC 10.0 103/ul Normal 4.0-11.0 [facility] Comment on above: Performed By: #### C BC ####[facility] [address] [place] [id number]. Digna Thomas LIPID PROFILEon 01-05-2023 CHOL-HDL RATIO NORM SEE BELOW Normal [facility] Comment on above: Result Comment: 3.3 - 4.4 LOW RISK 4.4 - 7.1 AVERAGE RISK 7.1 - 11.0 MODERATE RISK >11.0 HIGH RISK Performed By: #### B MP, TSH, LIPID #### [facility] [address] [address] [address] Digna Thomas Cholesterol [Mass/Vol] 179 mg/dL Normal <=200 [facility] Comment on above: Performed By: #### B MP, TSH, LIPID #### [facility] [address] [address] [address] Digna Thomas Cholesterol in HDL [Mass/Vol] 55 mg/dL Normal 40-60 [facility] Comment on above: Performed By: #### B MP, TSH, LIPID #### [facility] [address] [phone] Digna Thomas Cholesterol in LDL [Mass/Vol] 103.8 mg/dL Normal [facility] Comment on above: Performed By: #### B MP, TSH, LIPID #### [facility] [address] [address] [address] Digna Thomas Cholesterol.total/Ch olesterol in HDL [Mass ratio] 3.3 {ratio} Normal [facility] Comment on above: Performed By: #### B MP, TSH, LIPID #### [facility] [address] [address] [address] Digna Thomas HDL NORMAL > or = 60 mg/dl - LOW CARDIOVASCULAR RISK <40 mg/dl - HIGH CARDIOVASCULAR RISK Normal [facility] Comment on above: Performed By: #### B MP, TSH, LIPID #### [facility] [address] [place] [address] Dr. Digna Thomas LDL CALC NORMAL SEE BELOW Normal [facility] Comment on above: Result Comment: <100 mg/dl OPTIMAL 100 - 129 mg/dl NEAR OR ABOVE OPTIMAL 130 - 159 mg/dl BORDERLINE HIGH 160 - 189 mg/dl HIGH >190 mg/dl VERY HIGH Performed By: #### B MP, TSH, LIPID #### [facility] [address] [address] [address] Digna Thomas Triglyceride [Mass/Vol] 101 mg/dL Normal <=150 [facility] Comment on above: Performed By: #### B MP, TSH, LIPID #### [facility] [address] [address] [address] Digna Thomas VLDL CALC 20.2 mg/dL Normal [facility] Comment on above: Performed By: #### B MP, TSH, LIPID #### [facility] [address] [address] [address] Digna Thomas PROF CHEM 8 (BAS METB)on Anion gap [Moles/Vol] 13.3 mmol/L Normal [facility] Comment on above: Performed By: #### B MP, TSH, LIPID #### [facility] [address] [address] [address] Digna Thomas Calcium [Mass/Vol] 9.4 mg/dL Normal 8.5-10.1 [facility] Comment on above: Performed By: #### B MP, TSH, LIPID #### [facility] [address] [place] [address] Dr. Digna Thomas Chloride [Moles/Vol] 104 mmol/L Normal 98-107 [facility] Comment on above: Performed By: #### B MP, TSH, LIPID #### [facility] [address] [place] [address] Dr. Digna Thomas CO2 [Moles/Vol] 27.1 mmol/L Normal 21.0-32.0 [facility] Comment on above: Performed By: #### B MP, TSH, LIPID #### [facility] [address] [place] [address] Dr. Digna Thomas Creatinine [Mass/Vol] 0.71 mg/dL Normal 0.55-1.02 [facility] Comment on above: Performed By: #### B MP, TSH, LIPID #### [facility] [address] [place] [address] Dr. Digna Thomas EGFR-AF MEXICAN >60 Normal >=60 [facility] Comment on above: Performed By: #### B MP, TSH, LIPID #### [facility] [address] [place] [address] Dr. Digna Thomas EGFR-NON AF MEXICAN >60 Normal >=60 [facility] Comment on above: Performed By: #### B MP, TSH, LIPID #### [facility] [address] [place] [address] Dr. Digna Thomas Glucose [Mass/Vol] 163 mg/dL Critically high 74-106 [facility] Comment on above: Performed By: #### B MP, TSH, LIPID #### [facility] [address] [place] [address] Dr. Digna Thomas Potassium [Moles/Vol] 4.4 mmol/L Normal 3.5-5.1 [facility] Comment on above: Performed By: #### B MP, TSH, LIPID #### [facility] [address] [place] [address] Dr. Digna Thomas Sodium [Moles/Vol] 140 mmol/L Normal 136-[address] [facility] Comment on above: Performed By: #### B MP, TSH, LIPID #### [facility] [address] [address] [address] Digna Thomas Urea nitrogen [Mass/Vol] 15.0 mg/dL Normal 7.0-18.0 [facility] Comment on above: Performed By: #### B MP, TSH, LIPID #### [facility] [address] [phone] Digna Thomas Urea nitrogen/Creatinine [Mass ratio] 21.1 mg/mg Normal [facility] Comment on above: Performed By: #### B MP, TSH, LIPID #### [facility] [address] [phone] Digna Thomas TSHon 01-05-2023 TSH 3.955 uIU/mL Critically high 0.358-3.740 [facility] Comment on above: Performed By: #### B MP, TSH, LIPID #### [facility] [address] [address] [address] Digna Thomas XR CSPINE MIN 4 [...] FELIPE TRINH Date: 2022-11-04 08:02 Normal [facility] GLYCOHEMOGLOBIN A1Con 2022 ADA RECOMMENDATION SEE BELOW Normal [facility] Comment on above: Result Comment: ADA RECOMMENDED LIMIT 4.0 - 6.0 ADA THERAPEUTIC TARGET < 7.0 ACTION SUGGESTED > 7.0 Performed By: #### A 1C ####[facility] [address] [place], [place] [address]ZbDr. Digna Thomas Glucose [Mass/Vol] 166 mg/dL Normal [facility] Comment on above: Performed By: #### A 1C ####[facility] [address] [id number]. Digna Thomas HbA1c (Bld) [Mass fraction] 7.4 % Critically high 4.5-6.2 [facility] Comment on above: Performed By: #### A 1C ####[facility] [address] [place] [id number]. Digna Thomas PROLACTINon 07-12-2022 Prolactin 48.0 ng/mL Critically high 4.8-23.3 The [facility] Comment on above: Performed By: #### P ROLAC #### [facility] [address] [address] [address] Digna Thomas CBC AUTO DIFFon 07-11-2022 BASO # 0.1 103/ul Normal 0.0-0.1 [facility] Comment on above: Performed By: #### C BC ####[facility] [address] [address]Dr. Digna Thomas Basophils/100 WBC (Bld) 0.8 % Normal 0.2-2.0 [facility] Comment on above: Performed By: #### C BC ####[facility] [address] [place], [place] [address]Dr. Digna Thomas EO # 0.7 103/ul Normal 0.0-0.7 [facility] Comment on above: Performed By: #### C BC ####[facility] [address] [address]Dr. Digna Thomas Eosinophils/100 WBC (Bld) 5.8 % Normal 0.9-7.0 [facility] Comment on above: Performed By: #### C BC ####[facility] [address] [address]Dr. Digna Thomas Erythrocyte distribution width (RBC) [Ratio] 12.7 % Normal 11.0-15.0 [facility] Comment on above: Performed By: #### C BC ####[facility] [address] [address]Dr. Digna Thomas Hematocrit (Bld) [Volume fraction] 45.4 % Normal 36.0-48.0 [facility] Comment on above: Performed By: #### C BC ####[facility] [address] [place] [address]DrNile Perezjs William Hemoglobin (Bld) [Mass/Vol] 15.3 g/dL Normal 12.0-16.0 [facility] Comment on above: Performed By: #### C BC ####[facility] [address] [place] [address]DrNile Thomas IG # 0.04 10e3/ul Critically high 0.00-0.03 [facility] Comment on above: Performed By: #### C BC ####[facility] [address] [place], [place] [address]DrNile Thomas IG % 0.3 % Normal 0.0-0.5 [facility] Comment on above: Performed By: #### C BC ####[facility] Act[address] [place], [place] [address]DrNile Thomas LYMPH # 3.3 103/ul Normal 1.2-3.8 [facility] Comment on above: Performed By: #### C BC ####[facility] [address] [place], [place] [address]DrNile Thomas Lymphocytes/100 WBC (Bld) 28.1 % Normal 20.5-60.0 [facility] Comment on above: Performed By: #### C BC ####[facility] [address] [place], [place] [address]DrNile Thomas MANUAL DIFF REQ NO Normal [facility] Comment on above: Performed By: #### C BC ####[facility] [address] [place] [address]DrNile Thomas MCH (RBC) [Entitic mass] 29.2 pg Normal 26.7-34.0 [facility] Comment on above: Performed By: #### C BC ####[facility] [address] [place] [address]DrNile Thomas MCHC (RBC) [Mass/Vol] 33.7 g/dL Normal 29.9-35.2 [facility] Comment on above: Performed By: #### C BC ####[facility] [address] [place] [address]DrNile Thomas MCV (RBC) [Entitic vol] 86.6 fL Normal 81.0-99.0 [facility] Comment on above: Performed By: #### C BC ####[facility] [address] [place] [address]DrNile Thomas MONO # 0.8 103/ul Normal 0.3-0.8 [facility] Comment on above: Performed By: #### C BC ####[facility] [address] [place] [address]DrNile Thomas Monocytes/100 WBC (Bld) 6.4 % Normal 1.7-12.0 [facility] Comment on above: Performed By: #### C BC ####[facility] [address] [place], [place] [address]DrNile Thomas NEUT # 6.9 103/ul Critically high 1.4-6.5 The [facility] Comment on above: Performed By: #### C BC ####[facility] [address] [place], [place] [address]DrNile Thomas Neutrophils/100 WBC (Bld) 58.6 % Normal 43.0-75.0 [facility] Comment on above: Performed By: #### C BC ####[facility] [address] [place], [place] [id number] Thomas Platelet mean volume (Bld) [Entitic vol] 10.0 fL Normal 9.5-13.5 [facility] Comment on above: Performed By: #### C BC ####[facility] [address] [place], [place] [id number] Thomas PLT 242 103/ul Normal 150-450 [facility] Comment on above: Performed By: #### C BC ####[facility] [address] [place], [place] [address]DrNile Thomas RBC 5.24 106/ul Normal 4.20-5.40 [facility] Comment on above: Performed By: #### C BC ####[facility] [address] [place] [phone]. Digna Thomas WBC 11.8 103/ul Critically high 4.0-11.0 [facility] Comment on above: Performed By: #### C BC ####[facility] [address] [place] [phone]. Digna Thomas GLYCOHEMOGLOBIN A1Con 2021 ADA RECOMMENDATION SEE BELOW Normal [facility] Comment on above: Result Comment: ADA RECOMMENDED LIMIT 4.0 - 6.0 ADA THERAPEUTIC TARGET < 7.0 ACTION SUGGESTED > 7.0 Performed By: #### A 1C ####[facility] [address] [place], [place] [address]Dr. Digna Thomas Glucose [Mass/Vol] 183 mg/dL Normal [facility] Comment on above: Performed By: #### A 1C ####[facility] [address] [place], [place] [address]Dr. Digna Thomas HbA1c (Bld) [Mass fraction] 8.0 % Critically high 4.5-6.2 [facility] Comment on above: Performed By: #### A 1C ####[facility] [address] [place], [place] [address]Dr. Digna Thomas LIPID PROFILEon 07-11-2022 CHOL-HDL RATIO NORM SEE BELOW Normal [facility] Comment on above: Result Comment: 3.3 - 4.4 LOW RISK 4.4 - 7.1 AVERAGE RISK 7.1 - 11.0 MODERATE RISK >11.0 HIGH RISK Performed By: #### B MP, LIPID, TSH ####[facility] [address] [place] [phone]. Digna Thomas Cholesterol [Mass/Vol] 161 mg/dL Normal <=200 [facility] Comment on above: Performed By: #### B MP, LIPID, TSH ####[facility] [address] [place] [phone]. Digna Thomas Cholesterol in HDL [Mass/Vol] 51 mg/dL Normal 40-60 [facility] Comment on above: Performed By: #### B MP, LIPID, TSH ####[facility] [address] [place] [phone]. Digna Thomas Cholesterol in LDL [Mass/Vol] 86.2 mg/dL Normal [facility] Comment on above: Performed By: #### B MP, LIPID, TSH ####[facility] [address] [phone]. Digna Thomas Cholesterol.total/Ch olesterol in HDL [Mass ratio] 3.2 {ratio} Normal [facility] Comment on above: Performed By: #### B MP, LIPID, TSH ####[facility] [address] [place] [address]Dr. Digna Thomas HDL NORMAL > or = 60 mg/dl - LOW CARDIOVASCULAR RISK <40 mg/dl - HIGH CARDIOVASCULAR RISK Normal [facility] Comment on above: Performed By: #### B MP, LIPID, TSH ####[facility] [address] [place] [address]Dr. Digna Thomas LDL CALC NORMAL SEE BELOW Normal The [facility] Comment on above: Result Comment: <100 mg/dl OPTIMAL 100 - 129 mg/dl NEAR OR ABOVE OPTIMAL 130 - 159 mg/dl BORDERLINE HIGH 160 - 189 mg/dl HIGH >190 mg/dl VERY HIGH Performed By: #### B MP, LIPID, TSH ####[facility] [address] [phone]. Digna Thomas Triglyceride [Mass/Vol] 119 mg/dL Normal <=150 [facility] Comment on above: Performed By: #### B MP, LIPID, TSH ####[facility] [address] [phone]. Digna Thomas VLDL CALC 23.8 mg/dL Normal [facility] Comment on above: Performed By: #### B MP, LIPID, TSH ####[facility] [address] [phone]. Digna Thomas MG MAMM SCREEN 3D JANE CADon 07-11-2022 MG MAMM SCREEN 3D JNAE CAD Patient: JING GRAY. Exam Date: 07/11/2022 : 1975 Gender:F Ordering : DR KELECHI GALVAN D.O. Admission #: [id number] Family : Order #: [id number] CLICK HERE TO VIEW EXAM RADIOLOGY REPORT [...] bladder cancer at age 51. LOCATION: [facility] BREAST COMPOSITION: Scattered areas fibroglandular density. [...] Cagle MD on 07/11/2022 at 10:14 Normal [facility] MICROALBUMIN, RAND URon 10-3 mALB 10.1 mg/L Normal <=30.0 [facility] Comment on above: Performed By: #### M ALBR #### [facility] [address], [place] [address] Dr. Digna Thomas PROF CHEM 8 (BAS METB)on Anion gap [Moles/Vol] 10.6 mmol/L Normal [facility] Comment on above: Performed By: #### B MP, LIPID, TSH ####[facility] [address] [place], [place] [address]VrDr. Digna Thomas Calcium [Mass/Vol] 9.3 mg/dL Normal 8.5-10.1 [facility] Comment on above: Performed By: #### B MP, LIPID, TSH ####[facility] [address] [place] [address]Dr. Digna Thomas Chloride [Moles/Vol] 99 mmol/L Normal 98-107 [facility] Comment on above: Performed By: #### B MP, LIPID, TSH ####[facility] [address] [place] [address]Dr. Digna Thomas CO2 [Moles/Vol] 28.3 mmol/L Normal 21.0-32.0 The [facility] Comment on above: Performed By: #### B MP, LIPID, TSH ####[facility] [address] [place] [address]Dr. Digna Thomas Creatinine [Mass/Vol] 0.74 mg/dL Normal 0.55-1.02 [facility] Comment on above: Performed By: #### B MP, LIPID, TSH ####[facility] [address] [place] [address]Dr. Digna Thomas EGFR-AF MEXICAN >60 Normal >=60 The [facility] Comment on above: Performed By: #### B MP, LIPID, TSH ####[facility] [address] [place], [place] [address]Dr. Digna Thomas EGFR-NON AF MEXICAN >60 Normal >=60 [facility] Comment on above: Performed By: #### B MP, LIPID, TSH ####[facility] [address] [place] [address]Dr. Digna Thomas Glucose [Mass/Vol] 190 mg/dL Critically high 74-106 [facility] Comment on above: Performed By: #### B MP, LIPID, TSH ####[facility] [address] [place] [address]Dr. Digna Thomas Potassium [Moles/Vol] 3.9 mmol/L Normal 3.5-5.1 [facility] Comment on above: Performed By: #### B MP, LIPID, TSH ####[facility] [address] [place], [place] [address]Dr. Digna Thomas Sodium [Moles/Vol] 134 mmol/L Critically low 136-145 [facility] Comment on above: Performed By: #### B MP, LIPID, TSH ####[facility] [address] [place], [place] [address]We. Digna Thomas Urea nitrogen [Mass/Vol] 13.0 mg/dL Normal 7.0-18.0 [facility] Comment on above: Performed By: #### B MP, LIPID, TSH ####[facility] [address] [place] [phone]. Digna Thomas Urea nitrogen/Creatinine [Mass ratio] 17.6 mg/mg Normal [facility] Comment on above: Performed By: #### B MP, LIPID, TSH ####[facility] [address] [place] [phone]. Digna Thomas TSHon 07-11-2022 TSH 4.084 uIU/mL Critically high 0.358-3.740 [facility] Comment on above: Performed By: #### B MP, LIPID, TSH #### [facility] [address], [place] [address] Dr. Digna Thomas Vital Signs Date Time Vital Sign Value Performing Clinician Facility 01-27-2024 13:110400 Body height 165.1 cm [facility] 01-27-2024 13:11-0400 Body mass index (BMI) [Ratio] 42.9 kg/m2 [facility] 01-27-2024 13:11-0400 Body temperature 97.1 [degF] [facility] 01-27-2024 13:11-0400 Body weight 117.02 kg [facility] 01-27-2024 13:11-0400 Heart rate 64 /min [facility] 01-27-2024 13:11-0400 Respiratory rate 16 /min [facility] 01-27-2024 13:11-0400 SaO2% (BldA) [Mass fraction] 97 % [facility] 01-15-2024 08:41-0400 Body height 165.1 cm [facility] 01-15-2024 08:41-0400 Body mass index (BMI) [Ratio] 43 kg/m2 [facility] 01-15-2024 08:41-0400 Body weight 117.25 kg [facility] 01-15-2024 08:41-0400 Diastolic blood pressure 79 mm[Hg] [facility] 01-15-2024 08:41-0400 Heart rate 76 /min [facility] 01-15-2024 08:41-0400 Respiratory rate 12 /min [facility] 01-15-2024 08:41-0400 Systolic blood pressure 127 mm[Hg] [facility] 11-20-2023 12:57-0400 Body height 165.1 cm [facility] 11-20-2023 12:57-0400 Body mass index (BMI) [Ratio] 46.3 kg/m2 [facility] 11-20-2023 12:57-0400 Body weight 126.26 kg [facility] 11-20-2023 12:57-0400 Diastolic blood pressure 70 mm[Hg] [facility] 11-20-2023 12:57-0400 Systolic blood pressure 122 mm[Hg] [facility] 10-17-2023 09:00-0500 Body height 165.1 cm Kelechi Ball Other [facility] [employer] Other 10-17-2023 09:00-0500 Body mass index (BMI) [Ratio] 48.49 kg/m2 Kelechi Ball Other [employer] [facility] [employer] Other 10-17-2023 09:00-0500 Body weight 132.18 kg Kelechi Ball Other [employer] [facility] [employer] Other 10-17-2023 09:00-0500 Diastolic blood pressure 88 mm[Hg] Kelechi Ball Other [employer] [facility] [employer] Other 10-17-2023 09:00-0500 Respiratory rate 12 /min Kelechi Ball Other [facility] [employer] Other 10-17-2023 09:00-0500 Systolic blood pressure 138 mm[Hg] Kelechi Ball Other [facility] [employer] Other 09-22-2023 09:00-0500 Body height 165.1 cm Kelechi Ball Other [facility] 09-22-2023 09:00-0500 Body mass index (BMI) [Ratio] 50.25 kg/m2 Kelechi Ball Other [facility] [employer] Other 09-22-2023 09:00-0500 Body weight 136.99 kg Kelechi Ball Other [facility] [employer] Other 09-22-2023 09:00-0500 Body weight 136.98 kg [facility] 09-22-2023 09:00-0500 Diastolic blood pressure 85 mm[Hg] Kelechi Ball Other [facility] 09-22-2023 09:00-0500 Respiratory rate 12 /min Kelechi Ball Other [facility] [employer] Other 09-22-2023 09:00-0500 Systolic blood pressure 136 mm[Hg] Kelechi Ball Other [facility] 08-22-2023 08:30-0500 Body height 165.1 cm Kelechi Ball Other [facility] 08-22-2023 08:30-0500 Body mass index (BMI) [Ratio] 52.95 kg/m2 Kelechi Ball Other [facility] [employer] Other 08-22-2023 08:30-0500 Body weight 144.34 kg Kelechi Ball Other [facility] [employer] Other 08-22-2023 08:30-0500 Body weight 144.33 kg [facility] 08-22-2023 08:30-0500 Diastolic blood pressure 75 mm[Hg] Kelechi Ball Other [facility] 08-22-2023 08:30-0500 Respiratory rate 12 /min Kelechi Ball Other [employer] Other 08-22-2023 08:30-0500 Systolic blood pressure 115 mm[Hg] Kelechi Ball Other [facility] 05-26-2023 09:40-0400 Body height 165.1 cm Angélica Hue Other [employer] Other 05-26-2023 09:40-0400 Body mass index (BMI) [Ratio] 51.88 kg/m2 Angélica Hue Other [employer] Other 05-26-2023 09:40-0400 Body temperature 98 [degF] Angélica Hue Other [employer] Other 05-26-2023 09:40-0400 Body weight 141.43 kg Angélica Hue Other [employer] Other 05-26-2023 09:40-0400 Diastolic blood pressure 68 mm[Hg] Angélica Hue Other [employer] Other 05-26-2023 09:40-0400 Respiratory rate 18 /min Angélica Hue Other [employer] Other 05-26-2023 09:40-0400 SaO2% (BldA) [Mass fraction] 96 % Angélica Hue Other [employer] Other 05-26-2023 09:40-0400 Systolic blood pressure 110 mm[Hg] Angélica Hue Other [employer] Other 02-28-2023 13:15-0400 Body height 165.1 cm Kelechi Ball Other [employer] Other 02-28-2023 13:15-0400 Body mass index (BMI) [Ratio] 52.55 kg/m2 Kelechi Ball Other [employer] Other 02-28-2023 13:15-0400 Body weight 143.25 kg Kelechi Ball Other [employer] Other 02-28-2023 13:15-0400 Diastolic blood pressure 77 mm[Hg] Kelechi Ball Other [employer] Other 02-28-2023 13:15-0400 Respiratory rate 12 /min Kelechi Ball Other [employer] Other 02-28-2023 13:15-0400 Systolic blood pressure 118 mm[Hg] Kelechi Ball Other [employer] Other 01-16-2023 12:30-0400 Body height 165.1 cm Kelechi Ball Other [employer] Other 01-16-2023 12:30-0400 Body mass index (BMI) [Ratio] 52.28 kg/m2 Kelechi Ball Other [employer] Other 01-16-2023 12:30-0400 Body weight 142.52 kg Kelechi Ball Other [employer] Other 01-16-2023 12:30-0400 Diastolic blood pressure 72 mm[Hg] Kelechi Ball Other [employer] Other 01-16-2023 12:30-0400 Respiratory rate 16 /min Kelechi Ball Other [employer] Other 01-16-2023 12:30-0400 Systolic blood pressure 147 mm[Hg] Kelechi Ball Other [employer] Other 01-11-2023 18:10-0400 Body height 165.1 cm Angélica Hue Other [employer] Other 01-11-2023 18:10-0400 Body mass index (BMI) [Ratio] 52.41 kg/m2 Angélica Hue Other [employer] Other 01-11-2023 18:10-0400 Body temperature 99.6 [degF] Angélica Hue Other [employer] Other 01-11-2023 18:10-0400 Body weight 142.88 kg Angélica Hue Other [employer] Other 01-11-2023 18:10-0400 Diastolic blood pressure 64 mm[Hg] Angélcia Hue Other [employer] Other 01-11-2023 18:10-0400 Respiratory rate 20 /min Angélica Hue Other [employer] Other 01-11-2023 18:10-0400 SaO2% (BldA) [Mass fraction] 96 % Angélica Hue Other [employer] Other 01-11-2023 18:10-0400 Systolic blood pressure 117 mm[Hg] Angélica Hue Other [employer] Other 10-18-2022 12:00-0500 Body height 165.1 cm Kelechi Ball Other [employer] Other 10-18-2022 12:00-0500 Body mass index (BMI) [Ratio] 52.31 kg/m2 [facility] Other [employer] Other 10-18-2022 12:00-0500 Body weight 142.61 kg Kelechi [employer] Other [employer] Other 10-18-2022 12:00-0500 Diastolic blood pressure 84 mm[Hg] Kelechi [employer] Other [employer] Other 10-18-2022 12:00-0500 Respiratory rate 12 /min [facility] Other [employer] Other 10-18-2022 12:00-0500 Systolic blood pressure 122 mm[Hg] [facility] Other [employer] Other Encounters Encounter Date Encounter Type Care Provider Facility Start: 01-27-2024 End: 01-27-2024 ambulatory [facility] Work Phone: Start: 01-27-2024 End: 01-27-2024 Patient encounter procedure [facility] Work Phone: Start: 01-15-2024 End: 01-15-2024 ambulatory [facility] Work Phone: Start: 01-15-2024 End: 01-15-2024 Patient encounter procedure [facility] Work Phone: Start: 11-27-2023 End: 11-28-2023 ambulatory Joe Becerra MD Facility: [facility] Start: 11-20-2023 Non-patient / Non-visit [facility] Work Phone: Start: 10-27-2023 End: 10-27-2023 ambulatory [facility] Work Phone: Start: 10-27-2023 End: 10-27-2023 Patient encounter procedure [facility] Work Phone: Start: 10-20-2023 End: 10-20-2023 ambulatory Kelechi Galvan Other [employer] Other Start: 10-20-2023 Encounter by alysha lizarraga Kelechi Galvan [facility] Start: 10-17-2023 End: 10-17-2023 ambulatory Kelechi Cole Other [employer] Other Start: 10-17-2023 Office outpatient vi sit 15 minutes Kelechi Ball [facility] Start: 09-22-2023 End: 09-22-2023 ambulatory Kelechi Ball Other [employer] Other Start: 09-22-2023 Office outpatient vi sit 15 minutes Kelechi Ball [facility] Start: 09-22-2023 End: 09-22-2023 Patient encounter procedure [facility] Work Phone: Start: 09-08-2023 End: 09-08-2023 ambulatory Kelechi Galvan Other [employer] Other Start: 09-08-2023 Telephone encounter Kelechi Ball [facility] Start: 08-28-2023 End: 08-28-2023 ambulatory Kelechi Ball Other [employer] Other Start: 08-28-2023 Telephone encounter Kelechi Ball [facility] Start: 08-26-2023 End: 08-26-2023 ambulatory Kelechi Ball Other [employer] Other Start: 08-26-2023 Telephone encounter Kelechi Ball [facility] Start: 08-22-2023 End: 08-22-2023 ambulatory Kelechi Ball Other [employer] Other Start: 08-22-2023 Encounter for genera l adult medical examination without abnormal findings Kelechi Galvan [facility] Start: 08-22-2023 Periodic preventive med est patient 40-64yrs Kelechi Galvan [facility] Start: 08-22-2023 End: 08-22-2023 Patient encounter procedure [facility] Work Phone: Start: 05-26-2023 End: 05-26-2023 ambulatory Angélica Swann Other [employer] Other Start: 05-26-2023 Office outpatient vi sit 15 minutes Angélica Swann [facility] Start: 04-18-2023 End: 04-18-2023 ambulatory Kelechi Galvan Other [employer] Other Start: 04-18-2023 Office outpatient vi sit 15 minutes Kelechi Galvan [facility] Start: 02-28-2023 End: 02-28-2023 ambulatory Kelechi Galvan Other [employer] Other Start: 02-28-2023 Office outpatient vi sit 15 minutes Kelechi Galvan [facility] Start: 01-19-2023 End: 01-19-2023 ambulatory Kelechi Galvan Other [employer] Other Start: 01-19-2023 Telephone encounter Kelechi Galvan [facility] Start: 01-16-2023 End: 01-16-2023 ambulatory Kelechi Galvan Other [employer] Other Start: 01-16-2023 Office outpatient vi sit 25 minutes Kelechi Galvan [facility] Start: 01-11-2023 End: 01-11-2023 Patient encounter procedure [employer]-C Angélica Swann Work Phone: [facility] Work Phone: Start: 01-11-2023 End: 01-11-2023 ambulatory Angélica Swann [facility] Work Phone: Start: 01-11-2023 Office outpatient vi sit 15 minutes Angélica Swann [facility] Start: 01-11-2023 Telephone encounter [facility] Start: 01-09-2023 Encounter for genera l adult medical examination without abnormal findings DR KELECHI GALVAN [facility] Start: 01-05-2023 End: 01-06-[address] KELECHI GALVAN Facility:[facility] Start: 01-05-2023 End: 01-06-2023 Encounter for general adult medical examination without abnormal findings DR KELECHI GALVAN Facility:[facility] Start: 01-03-2023 End: 01-03-2023 ambulatory Kelechi Galvan Other [employer] Other Start: 01-03-2023 Encounter for genera l adult medical examination without abnormal findings [facility] Start: 01-03-2023 Patient encounter status Conrad omer Cole Other [employer] Other Start: 01-03-2023 Telephone encounter [facility] Start: 12-21-2022 End: 12-22-[address] KELECHI GALVAN Facility:[facility] Start: 12-08-2022 End: 12-09-[address] KELECHI GALVAN Facility:[facility] Start: 11-23-2022 End: 11-23-2022 ambulatory Kelechi Galvan Other [employer] Other Start: 11-23-2022 Telephone encounter [facility] Start: 11-16-2022 End: 11-17-[address] KELECHI GALVAN Facility:[facility] Start: 11-09-2022 End: 11-24-[address] KELECHI GALVAN Facility:[facility] Start: 11-03-2022 End: 11-04-[address] KELECHI GALVAN Facility:[facility] Start: 10-27-2022 End: 10-28-[address] KELECHI GALVAN [employer] Other Start: 10-27-2022 Telephone encounter [facility] Start: 10-18-2022 End: 10-18-2022 ambulatory Kelechi Galvan Other [employer] Other Start: 10-18-2022 Office outpatient vi sit 25 minutes Kelechi Galvan [facility] Start: 10-07-2022 End: 10-07-2022 ambulatory Kelechi Galvan Other [employer] Other Start: 10-07-2022 Telephone encounter Kelechi [facility] Start: 08-26-2022 Adult health examination Conrad Galvan Other [employer] Other Start: 07-11-2022 End: 07-12-[address] KELECHI GALVAN Facility:[facility] Start: 04-07-2022 End: 04-08-[address] DEANN ELIAS . Facility:[facility] Start: 07-28-2019 Pre-procedure evalua tion check Kelechi Galvan Other [employer] Other Start: 07-17-2018 Gynecological examination normal Kelechi Galvan Other [facility] Other Procedures Date Procedure Procedure Detail Performing Clinician Start: 01-11-2023 Plain X-ray of right hand CAMPAIGN MANAGEMENT SPECIALIST-C Angélica Swann Work Phone: Start: 01-18-2019 Preoperative cardiov ascular examination Kelechi Galvan Other End: 10-22-2018 Contraception care education Kelechi Galvan Other Depression screening Chuy Galvan Other Ligation of fallopian tube B presley Galvan Other Screening for malign ant neoplasm of breast Kelechi Galvan Other Plan of Treatment Date Care Activity Detail Author Start: 03-09-2023 ambulatory Ambulatory Facility:[facility] Payers Date Payer Category Payer Unknown 2023 Self-pay 1974 Unknown [id number] 2.16.84 [id number] 1974 Unknown [id number] 2.16.84 [id number] 1974 Unknown [id number] 2.16.84 [id number] 1974 Unknown [id number] 2.16.84 [id number] 1974 Unknown [id number] 2.16.84 [id number] 1974 Unknown [id number] 2.16.84 [id number] 1974 Unknown [id number] 2.16.84 [id number] 1974 Unknown [id number] 2.16.84 [id number] 1974 Unknown [id number] 2.16.84 [id number] 1974 Unknown [id number] 2.16.84 [id number] 1974 Unknown [id number] 2.16.84 [id number] 1974 Unknown [id number] 2.16. [id number] 1959 Unknown [id number] 2.1 [id number] 1959 Unknown [id number] Medicaid [place] Advantage [id number] 001 [id number] Unknown [id number] 2.16.8 [id number] Social History Date Type Detail Facility Unknown if ever smoked [facility] Other Sex Assigned At Sex Assigned At Bir th [facility] Other Start: 1975 Sex Assigned At Female [facility] Start: 05-16-2018 End: 05-16-2018 Tobacco smoking status MNIS Never smoked tobacco (finding) [facility] Start: 01-27-2024 Tobacco smoking status MNIS Ex-smoker (finding) [facility] Clinical Notes 05-31-2011 to 10-20-2023 Note Date & Type Note Facility 10-20-2023 Evaluation note Encounter Date Diagnosis Assessment Notes Oct, Morbid (severe) obesity due to excess calories (ICD-10 - E66.01) [facility] Other 02-06-2024 Evaluation note* Encounter Date Diagnosis [...] index [BMI] 50.0-59.9, adult (ICD-10 - Z68.43) [facility] Other 01-12-2024 Evaluation note* Encounter Date Diagnosis [...] index [BMI] 50.0-59.9, adult (ICD-10 - Z68.43) [facility] Other 12-29-2023 Evaluation note* Encounter Date Diagnosis Assessment Notes Treatment Notes Treatment Clinical Notes Aug, Prolactinoma (ICD-10 - D35.2) MRI < 10mm, prolactin 80 - 3 [facility] Other 12-16-2023 Evaluation note* Encounter Date Diagnosis Assessment Notes Treatment Notes Treatment Clinical Notes Aug, Hyperprolactinemia (ICD-10 - E22.1) [facility] Other 12-12-2023 Evaluation note* Encounter Date Diagnosis [...] use, the patient reduces the risk for MT, CVA, HTN, cardiac dysrhythmias and sudden cardiac [...] patient on monthly SBE and yearly mammograms. [facility] Other 09-15-2023 Evaluation note* Encounter Date Diagnosis [...] thoracic region, initial encounter (ICD-10 - S29.019A) [facility] Other 08-08-2023 Evaluation note* Encounter Date Diagnosis Assessment Notes Treatment Notes Treatment Clinical Notes Apr, Sharmin-menopausal (ICD-10 - N95.1) Recommend scheduling appt w/ Auger Supervisor. Apr, Primary hypertension (ICD-10 - I10) [...] use, the patient reduces the risk for MT, CVA, HTN, cardiac dysrhythmias and sudden cardiac deaths.The patient is also aware of the association between REBA and morning headaches, daytime somnolence, fatigue and obesity, which also has been improved with continued use.The patient is compliant with treatment, wearing the equipment every night for greater than 4 hours.The patient is instructed to continue use of the CPAP for REBA treatment. [facility] Other 06-20-2023 Evaluation note* Encounter Date Diagnosis Assessment Notes Treatment Notes Treatment Clinical Notes Feb, Seborrheic dermatitis of scalp (ICD-10 - L21.9) Keep clean, avoid scratching Stop using Mupirocin Initiate topical steroid ointment Feb, Primary hypertension (ICD-10 - I10) This patient is instructed to consume a healthy, low-fat, low-salt diet. They are also encouraged to continue exercise to achieve/maintain a normal BMI. [facility] Other 05-11-2023 Evaluation note* Encounter Date Diagnosis Assessment Notes Treatment Notes Treatment Clinical Notes January, Type 2 diabetes mellitus with hyperglycemia, without long-term current use of insulin (ICD-10 - E11.65) [facility] Other 05-08-2023 Evaluation note* Encounter Date Diagnosis [...] use, the patient reduces the risk for MT, CVA, HTN, cardiac dysrhythmias and sudden cardiac [...] visual defects. January, Hyperprolactinemia (ICD-10 - E22.1) [facility] Other 05-03-2023 Evaluation note* Encounter Date Diagnosis Assessment Notes Treatment Notes Treatment Clinical Notes January, REBA (obstructive sleep apnea) (ICD-10 - G47.33) AHI 104 w/ Psat 68%, BiPAP , full facial mask [facility] Other 05-03-2023 Evaluation note* Encounter Date Diagnosis [...] no improvement in 2 to 3 days [facility] Other 04-25-2023 Evaluation note* Encounter Date Diagnosis Assessment Notes Treatment Notes Treatment Clinical Notes Dec, Type 2 diabetes mellitus with hyperglycemia, without long-term current use of insulin (ICD-10 - E11.65) Dec, Primary hypertension (ICD-10 - I10) Dec, Wellness examination (ICD-10 - Z00.00) [facility] Other 03-30-2023 NoteCONSULTATION CONSULTATION DATE: 12/08/2022 TO: [...] this point for her residual pain symptoms.[id number]* Encounter Date Diagnosis Assessment Notes Treatment Notes Treatment Clinical Notes Nov, REBA (obstructive sleep apnea) (ICD-10 - G47.33) AHI 101 w/ Psat 79% [facility] Other 03-15-2023 Evaluation note* Encounter Date Diagnosis Assessment Notes Treatment Notes Treatment Clinical Notes Nov, REBA (obstructive sleep apnea) (ICD-10 - G47.33) AHI 104 w/ Psat 68% [facility] Other 02-23-2023 NotePAIN MANAGEMENT CONSULTATION CONSULTATION DATE: [...] four weeks' time or sooner if needed.[facility] 11-03-2022 NotePAIN MANAGEMENT CONSULTATION CONSULTATION DATE: [...] on his response to change in medication.[facility] 10-18-2022 Evaluation note* Encounter Date Diagnosis [...] (ICD-10 - R29.818) Referral for sleep study [facility] Other 07-28-2022 NoteCONSULTATION CONSULTATION DATE: 04/07/2022 HISTORY [...] Patient states understanding and all questions answered.[facility] History general Narrative - Reported* Type Description Date Medical History hypertension Medical History back pain Medical History degenerative disc disease Medical History Prolactinoma Medical History asthma Surgical History C section 05/31/2011 Surgical History IVF 12/01/2008 Surgical History hysterectomy laps assisted 12-11 007 Surgical History right foot sx (planter) Hospitalization History see above Hospitalization History blood transfusion 09/2014 [facility] [employer] Other Chief complaint+Reason for visit Narrative* Chief Complaint COVID+ Amb Documentation 3 month follow up Reason for Visit COVID-19 Lumbar spondylosis REBA (obstructive sleep apnea) Primary hypertension Type 2 diabetes mellitus with hyperglycemia [facility] Work Phone: Evaluation noteNo [facility] [employer] Other Evaluation noteNo assessment information available [facility] Work Phone: Evaluation note* Diagnosis Onset Date Resolution Status Type 2 diabetes mellitus with hyperglycemia acute COVID-19 noneactive [facility] Work Phone: Evaluation note* Diagnosis Onset Date Resolution Status COVID-19 noneactive Lumbar spondylosis acute REBA (obstructive sleep apnea) acute Primary hypertension acute Type 2 diabetes mellitus with hyperglycemia acute [facility] Work Phone: Evaluation note* Diagnosis Onset Date Resolution Status Obesity acute Primary hypertension acute Type 2 diabetes mellitus with hyperglycemia acute [facility] Work Phone: History general Narrative - Reported* Type Description Date Medical History hypertension Medical History back pain Medical History degenerative disc disease Medical History Prolactinoma Medical History asthma Medical History REBA (obstructive sleep apnea) Surgical History C section 05/31/2011 Surgical History IVF 12/01/2008 Surgical History hysterectomy laps assisted 04-2 007 Surgical History right foot sx (planter) Hospitalization History see above Hospitalization History blood transfusion 09/2014 [employer] Other Summary Purpose Family History Relationship Condition Age at Onset Recorded Date/T mikla father Unknown Malignant neoplasm Unknown Hypertension Unknown [...] 2 diabetes olive itus with hyperglycemia COVID-19 Chief Complaint Amb Documentation 3 month follow up Right ear pain Reason for Visit Obesity Primary hypertension Type 2 diabetes mellitus with hyperglycemia Additional Source Comments REASON FOR VISIT (unrecogniz ed section and content) sleep study4 MONTH FOLLOW UP BS resultsNo InformationNo InformationlabsNo Informationright side pinky/ring finger hurts & right elbow3 month Follow uprefillrash on scalp spreadingHormones/ Thoughts- [phone] in neck and upper backWELLNESSNo Informationlab resultsMR results1 month Follow upadipex reorder1 month Follow up INFORMATION SOURCE (unrecogn ized section and content) DATE CREATED AUTHOR 01/11/2023 [facility] DATE CREATED AUTHOR AUTHOR'S ORGANIZ ATION 01/12/2023 [facility] DATE CREATED AUTHOR AUTHOR'S ORGANIZ ATION 01/01/2024 [facility] Care Teams (unrecognized sec tion and content) Team Status: Active Member Role Status Dates Kelechi Galvan DO Primary Care Provider Active Team Status: Active Member Role Status Dates Kelechi Galvan DO Primary Care Provider Active Start: November 20, 2023 Sheela Garrett LPN Attending Provider Active S tart: November 20, 2023 Team Status: Inactive Member Role Status Dates Kelechi Galvan DO Primary Care Provide r, Attending Provider Active Start: January 15, 2024 End: January 15, 2024 Team Status: Inactive Member Role Status Dates Kelechi Galvan DO Primary Care Provider Active Start: January 27, 2024 End: January 27, 2024 Yessenia Rich APRN Attending Provider Active Start: January 27, 2024 End: January 27, 2024 Team Status: Inactive Member Role Status Dates TRINI Lenz Attending Provider Active Team Status: Active Member Role Status Dates Kelechi Galvan , DO Primary Care Provider Active Team Status: Inactive Member Role Status Dates Kelechi Galvan , DO Attending Provider Active Sta rt: August 22, 2023 End: August 22, 2023 Team Status: Inactive Member Role Status Dates Kelechi Cole , DO Attending Provider Active Sta rt: September 22, 2023 End: September 22, 2023 Team Status: Inactive Member Role Status Dates Kelechi Cole , DO Primary Care Provide r, Attending Provider Active Start: October 27, 2023 End: October 27, 2023 Team Status: Active Member Role Status Dates Kelechi Galvan , Primary Care Provider Active Start: November 20, 2023 Sheela Garrett LPN Attending Provider Active S tart: November 20, 2023 Team Status: Inactive Member Role Status Dates Kelechi Cole , DO Primary Care Provide r, Attending Provider Active Start: January 15, 2024 End: January 15, 2024 Team Status: Inactive Member Role Status Dates Kelechi Galvan , DO Primary Care Provider Active Start: January 27, 2024 End: January 27, 2024 Yessenia Rich APRN Attending Provider Active Start: January 27, 2024 End: January 27, 2024 Goals (unrecognized section and content) Goals may [...] BE BASED ON THE PRIMARY CLINICAL RECORDS. [employer] provides no warranty or guarantee of the accuracy or completeness of information in this document.
--- NOTE | 2024-03-27 07:52 | PM.CN ---
Consult Note: HPI Data of Consult Patient: known to practice within the last 3 years Requesting Physician: Jeny Manley NP Primary Care Provider: Kelechi Galvan, DO Consult Narrative Reason for consult: f/u Narrative: Marie Gray a pleasant 47 year old female presents for evaluation and management of chronic neck pain and back pain. Today pain 0/10. patient has had chronic neck and back pain greater than 3 months unresponsive to HEP/PT greater than 6 weeks. Patient has found mild benefit to tylenol, NSAIDs, and tizanidine. Patient recently underwent bilateral T12, L1 L1,L2 facet RFA with 80% improvement ongoing. Patient also noting benefit from left and right C5,6 C6,7 facet RFA greater than 80% improvement. cc:: CC: Jeny Manley NP Review of Systems ROS Status of ROS 10 or more systems reviewed and unremarkable except as noted in history and below [facility] Medical History In vitro fertilization ?Z31.83 - Encounter for assisted reproductive fertility procedure cycle (ICD-10) Diabetes ?E11.9 - Type 2 diabetes mellitus without complications (ICD-10) HTN (hypertension) ?I10 - Essential (primary) hypertension (ICD-10) Surgical History History of dilation and curettage ?Z98.890 - Other specified postprocedural states (ICD-10) History of tubal ligation ?Z98.51 - Tubal ligation status (ICD-10) History of hysteroscopy ?Z98.890 - Other specified postprocedural states (ICD-10) Previous section ?Z98.891 - History of uterine scar from previous surgery (ICD-10) History of fasciotomy ?Z98.890 - Other specified postprocedural states (ICD-10) History of laparoscopy ?Z98.890 - Other specified postprocedural states (ICD-10) Meds Home Medications and Allergies Home Medications ?Medication ?Instructions ?Recorded ?Confirmed ?Type atenolol 50 mg tablet 50 mg PO DAILY 03/09/23 11/27/23 History dapagliflozin propanediol 5 mg 5 mg PO DAILY 03/09/23 11/27/23 History tablet (Farxiga) dulaglutide 4.5 mg/0.5 mL 4.5 mg subcut QWEEK 03/09/23 11/27/23 History subcutaneous pen injector (Trulicity) furosemide 20 mg tablet 20 mg PO DAILY 03/09/23 11/27/23 History lisinopril 5 mg tablet 5 mg PO DAILY 03/09/23 11/27/23 History metformin 1,000 mg tablet 1,000 mg PO BID 03/09/23 11/27/23 History naproxen 500 mg tablet 500 mg PO BID 03/09/23 11/27/23 History potassium chloride 10 mEq 10 meq PO DAILY 03/09/23 11/27/23 History tablet,extended release (Klor-Con) tizanidine 4 mg tablet (Zanaflex) 4 mg PO DAILY PRN spasm 03/09/23 11/27/23 History diazepam 10 mg tablet 10 mg PO 11/27/23 History Allergies Allergy/AdvReac Type Severity Reaction Status Date / Time Penicillins Allergy Rash Verified 11/27/23 08:08 Exam Constitutional Documenting provider has reviewed patient's vital signs: yes Common normals: no apparent distress, oriented x3, healthy appearing, alert and well nourished General appearance: cooperative Nutritional appearance: obese HENMT Common normals: normocephalic, hearing grossly normal bilaterally and moist oral mucous membranes Head and scalp: normocephalic Eye Common normals: PERRL Pupil: PERRL Neck & C-Spine Common normals: full ROM General: normal visual inspection Cervical spine: paracervical muscle tenderness Chest Common normals: inspection of chest normal Respiratory Common normals: normal respiratory effort, no retractions and no use of accessory muscles Back & Pelvis Thoracic spine/upper back: normal to inspection and thoracic ROM normal Lumbar spine/lower back: normal to inspection and lumbar ROM normal Other: negative facet loading negative radiculopathy Extremity Common normals: normal to inspection and full ROM Neuro Common normals: oriented x3, CN's II-XII intact bilaterally, moves all extremities, no focal motor deficits, no sensory deficits noted and deep tendon reflexes 2+ bilaterally Sensorium/orientation: alert Motor exam: strength 5/5 throughout and no movement abnormalities noted Psych Common normals: mental status grossly normal, thought process normal, cooperative, affect normal, speech normal and activity/motor behavior normal Speech: normal speech Thought process: normal thought process Results Additional Findings Additional findings: If on a controlled substance or opioids, I have checked an OARRS report on this patient and there are no aberrancies noted in the prescribing history.??If on a controlled substance or opioid a drug screen was completed and reviewed within the last year, and if there has not been a drug screen completed we ordered one today to monitor higher risk, state monitored pain medication use. As part of providing excellent, safe, comprehensive care, the following was completed at our patient's visit: 1. A medication reconciliation and review to ensure accurate knowledge of current/active medications, including asking our patients to inform us about any [id number] medications or herbal remedies/nutritional supplements/alternative remedies. 2. A review to specifically ensure our patients have had annual screening for screening for depression, screening for tobacco use, and screening for unhealthy alcohol use. For concerning screenings had a discussion with the patient, provided patient education, and recommended follow-up with primary care provider when appropriate. If patient noted with a risk of falling, they received education on strength, gait, and balance training to prevent future risk of falling. Assessment and Plan Assessment and Plan (1) Muscle spasm: (2) Cervical spondylosis: (3) Thoracic spondylosis: (4) Lumbar spondylosis: Plan continue current medications continue HEP as tolerated f/u 6 months, sooner if needed
== END 2024-03-27 07:38 | disposition home or self-care (01) ==
LOC: PM 07:39
PROVIDERS: PCP Internal Medicine; Visit Provider Nurse Practitioner
DX: M62.838 Other muscle spasm (principal); M47.812 Spondylosis without myelopathy or radiculopathy, cervical region; M47.814 Spondylosis without myelopathy or radiculopathy, thoracic region; M47.816 Spondylosis without myelopathy or radiculopathy, lumbar region
CPT/HCPCS: G0463

== ENCOUNTER 2024-09-19 07:39 | Outpatient (OUT) | payer OTHER, SELFPAY ==
--- NOTE | 2024-09-19 07:57 | P.CN_ITS ---
Consult Note: HPI Data of Consult Patient: known to practice within the last 3 years Requesting Physician: Jeny Manley NP Primary Care Provider: Kelechi Galvan, DO Consult Narrative Reason for consult: f/u Narrative: Marie Gray a pleasant 48 year old female presents for evaluation and management of chronic neck pain and back pain. Today pain 4/10, increasing to 7/10 upon waking in the morning. patient has had chronic neck and back pain greater than 3 months unresponsive to HEP/PT greater than 6 weeks. Patient has found mild benefit to tylenol, NSAIDs, and tizanidine. Patient previously underwent bilateral T12, L1 L1,L2 facet RFA with >50% improvement greater than 6 months. Patient also noting benefit from prior left and right C5,6 C6,7 facet RFA, >50% improvement greater than 6 months. SHALA stable at 22% cc:: CC: Jeny Manley NP Review of Systems ROS Status of ROS 10 or more systems reviewed and unremark able except as noted in history and below Musculoskeletal Reports: back pain, neck pain and extremity pain PFSH PFSH Medical History In vitro fertilization ?Z31.83 - Encounter for assisted reproductive fertility procedure cycle (ICD- 10) Diabetes ?E11.9 - Type 2 diabetes mellitus without complications (ICD-10) HTN (hypertension) ?I10 - Essential (primary) hypertension (ICD-10) Surgical History History of dilation and curettage ?Z98.890 - Other specified postprocedural states (ICD-10) History of tubal ligation ?Z98.51 - Tubal ligation status (ICD-10) History of hysteroscopy ?Z98.890 - Other specified postprocedural states (ICD-10) Previous section ?Z98.891 - History of uterine scar from previous surgery (ICD-10) History of fasciotomy ?Z98.890 - Other specified postprocedural states (ICD-10) History of laparoscopy ?Z98.890 - Other specified postprocedural states (ICD-10) Meds Home Medications and Allergies Home Medications ?Medication ?Instructions ?Recorded ?Confirmed ?Type atenolol 50 mg tablet 50 mg PO DAILY 03/09/23 11/27/23 History dapagliflozin propanediol 5 mg 5 mg PO DAILY 03/09/23 11/27/23 History tablet (Farxiga) dulaglutide 4.5 mg/0.5 mL 4.5 mg subcut QWEEK 03/09/23 11/27/23 History subcutaneous pen injector (Trulicity) furosemide 20 mg tablet 20 mg PO DAILY 03/09/23 11/27/23 History lisinopril 5 mg tablet 5 mg PO DAILY 03/09/23 11/27/23 History metformin 1,000 mg tablet 1,000 mg PO BID 03/09/23 11/27/23 History naproxen 500 mg tablet 500 mg PO BID 03/09/23 11/27/23 History potassium chloride 10 mEq 10 meq PO DAILY 03/09/23 11/27/23 History tablet,extended release (Klor-Con) tizanidine 4 mg tablet (Zanaflex) 4 mg PO DAILY PRN spasm 03/09/23 11/27/23 History diazepam 10 mg tablet 10 mg PO 11/27/23 History Allergies Allergy/AdvReac Type Severity Reaction Status Date / Time Penicillins Allergy Rash Verified 11/27/23 08:08 Exam Constitutional Documenting provider has reviewed patient's vital signs: yes Common normals: no apparent distress, oriented x3, healthy appearing, alert and well nourished General appearance: cooperative Nutritional appearance: obese HENMT Common normals: normocephalic, hearing grossly normal bilaterally and moist oral mucous membranes Head and scalp: normocephalic Eye Common normals: PERRL Pupil: PERRL Neck & C-Spine Common normals: full ROM General: normal visual inspection Cervical spine: paracervical muscle tenderness Chest Common normals: inspection of chest normal Respiratory Common normals: normal respiratory effort, no retractions and no use of accessory muscles Back & Pelvis Thoracic spine/upper back: normal to inspection and thoracic ROM normal Lumbar spine/lower back: normal to inspection and lumbar ROM normal Other: negative facet loading negative radiculopathy Extremity Common normals: normal to inspection and full ROM Right upper extremity: elbow joint and lower arm (tenderness over lateral epicondyle no edema warmth noted) Other: stregnth in BUE 5/5 Neuro Common normals: oriented x3, CN's II-XII intact bilaterally, moves all extremities, no focal motor deficits, no sensory deficits noted and deep tendon reflexes 2+ bilaterally Sensorium/orientation: alert Motor exam: strength 5/5 throughout and no movement abnormalities noted Psych Common normals: mental status grossly normal, thought process normal, cooperative, affect normal, speech normal and activity/motor behavior normal Speech: normal speech Thought process: normal thought process Results Additional Findings Additional findings: If on a controlled substance or opioids, I have checked an OARRS report on this patient and there are no aberrancies noted in the prescribing history.??If on a controlled substance or opioid a drug screen was completed and reviewed within the last year, and if there has not been a drug screen completed we ordered one today to monitor higher risk, state monitored pain medication use. As part of providing excellent, safe, comprehensive care, the following was completed at our patient's visit: 1. A medication reconciliation and review to ensure accurate knowledge of current/active medications, including asking our patients to inform us about any [id number] medications or herbal remedies/nutritional suppleme nts/alternative remedies. 2. A review to specifically ensure our patients have had annual screening for screening for depression, screening for tobacco use, and screening for unhealthy alcohol use. For concerning screenings had a discussion with the patient, provided patient education, and recommended follow-up with primary care provider when appropriate. If patient noted with a risk of falling, they received education on strength, gait, and balance training to prevent future risk of falling. Assessment and Plan Assessment and Plan (1) Muscle spasm: (2) Cervical spondylosis: (3) Thoracic spondylosis: (4) Lumbar spondylosis: Plan change tizanidine 2mg AM PRN pain/spasms 4-8mg HS PRN pain/spasms encouraged voltaren gel to right elbow, f/u with PCP for further care and evaluation of tendonitis continue PRN motrin/tylenol continue HEP as tolerated f/u 3 months
== END 2024-09-19 07:40 | disposition home or self-care (01) ==
LOC: PM 07:39
PROVIDERS: PCP Internal Medicine; Visit Provider Nurse Practitioner
DX: M62.838 Other muscle spasm (principal); M47.812 Spondylosis without myelopathy or radiculopathy, cervical region; M47.814 Spondylosis without myelopathy or radiculopathy, thoracic region; M47.816 Spondylosis without myelopathy or radiculopathy, lumbar region
CPT/HCPCS: G0463

== ENCOUNTER 2024-10-09 07:33 | Outpatient (OUT) | payer OTHER, SELFPAY ==
--- OUTSIDE RECORDS SUMMARY | 2024-10-09 07:36 | XMS_ITS | CCD ---
Author Organization [facility] Care Team Providers Care Wallpaperer Helper Name Role Phone Kelechi Galvan Unavailable COLE, [...] vailable BALL, DR CULVER Primary Care Unavailable COLE, DR CULVER Primary Care Unavailable COLE, DR CULVER Consulting Unavailable COLE, DR CULVER Attending Unavailable BALL, DR CULVER Admitting Unavailable COLE, DR CULVER Primary Care Unavailable BALL, DR CULVER Consulting Unavailable BALL, DR CULVER Attending Unavailable BALL, DR CULVER Admitting Unavailable BALL, DR CULVER Primary Care Unavailable LAKSHMIPATHY ., NARENDPAULA Admitting Bebe vailable LAKSHMIPATHY ., EILEENENDPAULA Attending Bebe vailable ZIEBER, DR FELIPE Santiago Consulting Unavailable LAKSHMIPATHY ., ERINN Consulting Bebe vailable COLE, DR CULVER Primary Care Unavailable BALL, DR CULVER Consulting Unavailable COLE, DR CULVER Attending Unavailable BALL, DR CULVER Admitting Unavailable COLE, DR CULVER Consulting Unavailable COLE, DR CULVER Attending Unavailable COLE, DR CULVER Primary Care Unavailable COLE, DR CULVER Admitting Unavailable WEST, DR ANGELA Orellana Consulting Unavailable COLE, DR CULVER Consulting Unavailable COLE, DR CULVER Attending Unavailable COLE, DR CULVER Admitting Unavailable BALL, DR CULVER Primary Care Unavailable COLE, DR CULVER Primary Care Unavailable LAKSHMIPATHY ., NARENDRANATH Admitting Bebe vailable LAKSHMIPATHY ., NARENDRANATH Attending Bebe vailable Angélica Swann Unavailable Angélica Swann Attending Unavailable Angélica Swann Admitting Unavailable TRINI Swann Attending Provider Hernan BURGESS, Joe Ko Attending Unavailable Kelechi Galvan MD Primary Care Provider ANTIONE MADERA Attending Unavailable Allergies Allergy Classification Reported Allergen(s) Allergy Type Date of Onset Reaction(s) Facility (13 sources) Penicillin G Drug Allergy pt doesn't remember [employer] Other (2 sources) Penicillins Drug allergy (disorder) 3 [facility] Repository (17 sources) Doxycycline Drug Allergy 4 Unknown, Unknown Reaction [facility] (2 sources) Penicillin Drug Allergy Unknown [employer] Other (9 sources) Penicillin G Benzathine & Proc Drug allergy 7 Unknown [employer] Other (2 sources) patient allergy list reviewed by nurse or physicia Propensity to adverse reactions 4 Comment:Done [employer] Other (2 sources) Allergies Reconciled Propensity to adverse reactions Unknown [employer] Other (6 sources) Penicillin G Benzathine Allergy to substance 4 Unknown Reaction [facility] Comment on above: Onset Date: 12/22/19 07 (3 sources) Penicillins Propensity to adverse reactions 3 Unknown [facility] Work Phone: Medications Current Medications Medication Drug Class(es) Dates Sig (Normalized) Sig (Original) atenolol 50 mg oral tablet (20 sources) beta-Adrenergic Selin Start: 04-08-2024 take 1 tablet by mouth once daily Atenolol 50 mg tablet Active 0 .ROUTE .COMPLEX 90 April 08, 2024 8:59am TAKE 1 TABLET BY MOUTH EVERY DAY Start: 04-19-2023 End: 04-08-2024 take 1 tablet by mouth in the morning atenolol (Tenormin) 50 MG tablet Take 50 mg by mouth in the morning. 04/19/2023 Active Atenolol Not-Anuj ing/PRN Atenolol Not-Anuj ing Atenolol Active buPROPion (5 sources) Aminoketone Start: 07-22-2024 buPROPion HCl (WELLBUTRIN PO) 07/22/2024 Active Start: 07-15-2024 take 1 tablet by leora th once daily in the morning Bupropion Hcl 300 mg tablet extended release 24 hr Active 300 MG PO Every morning July 15, 2024 12:52pm Start: 07-05-2024 End: 07-15-2024 take 2 tablets by mouth once daily in the morning Bupropion Hcl 300 mg tablet extended release 24 hr Discontinued 150 MG PO Every morning July 05, 2024 12:19pm July 15, 2024 12:53pm Start: 06-24-2024 End: 07-05-2024 take 1 tablet by mouth once daily in the morning Bupropion Hcl 150 mg tablet extended release 24 hr Discontinued 150 MG PO Every morning June 23, 2024 11:00pm July 05, 2024 12:19pm cetirizine hydrochloride 10 mg oral tablet (16 sources) Histamine-1 Receptor Antagonist Start: 06-23-2024 take 1 tablet by mouth once daily Cetirizine 10 mg tablet Active 0 .ROUTE .COMPLEX June 23, 2024 11:17am TAKE 1 TABLET BY MOUTH EVERY DAY Start: 05-02-2023 End: 06-23-2024 take 1 tablet by mouth in the morning cetirizine (ZyrTEC) 10 MG tablet Take 10 mg by mouth in the morning. 05/02/2023 Active cyclobenzaprine hydrochloride 10 mg oral tablet (3 sources) Muscle Relaxant Start: 01-23-2023 End: 08-07-2024 take 1 tablet by mouth every twenty-four hours as needed cyclobenzaprine (Flexeril) 10 MG tablet Take 10 mg by mouth Daily as needed for muscle spasms. 01/23/2023 08/07/2024 Discontinued (Therapy completed) dapagliflozin 5 mg oral tablet (20 sources) Sodium-Glucose Cotransporter 2 Inhibitor Start: 01-16-2023 End: 08-07-2024 take 5 mg by mouth in the morning Farxiga 5 MG Take 5 mg by mouth in the morning. 05/12/2023 08/07/2024 Discontinued (Therapy completed) 0.5 ML dulaglutide 9 MG/ML Auto-Injector [Trulicity] [...] Dulaglutide (Trulicity) 4.5 mg/0.5 mL pen injector (5 sources) Start: 10-27-2023 Dulaglutide (T rulicity) 4.5 mg/0.5 mL pen injector Active 4.5 MG SUBCUT every week October 27, 2023 12:00am Start: 10-27-2023 Dulaglutide (T rulicity) 4.5 mg/0.5 mL pen injector Active 4.5 MG SUBCUT every week October 27, 2023 1:00am escitalopram 20 mg oral tablet (20 sources) Serotonin Reuptake Inhibitor Start: 07-15-2024 take 1 tablet by mouth once daily Escitalopram Oxalate 20 mg tablet Active 0 .ROUTE .COMPLEX July 15, 2024 8:45pm TAKE 1 TABLET BY MOUTH EVERY DAY Start: 06-21-2024 End: 07-05-2024 take 1 tablet by mouth once daily Escitalopram Oxalate 20 mg tablet Discontinued 20 MG PO Daily June 21, 2024 11:11am July 05, 2024 12:19pm Start: 04-18-2023 End: 07-15-2024 take 1 tablet by mouth in the morning escitalopram (Lexapro) 10 MG tablet Take 10 mg by mouth in the morning. 05/15/2023 Active fluticasone propionate 0.05 mg/actuat metered dose nasal spray (3 sources) Corticosteroid Start: 01-27-2024 take 2 spray(s) nasal route once daily Fluticasone Propionate (Flonase Allergy Relief) 50 mcg/actuation spray,suspension Active 2 SPRAY INTRANASAL Daily January 26, 2024 11:00pm administer 2 spray into each nostril furosemide 20 mg oral tablet (20 sources) Loop Diuretic Start: 04-05-2023 take 1 tablet by mouth in the morning furosemide (Lasix) 20 MG tablet Take 20 mg by mouth in the morning. 04/05/2023 Active Furosemide Activ e hydrOXYzine hydrochloride 50 mg oral tablet (3 sources) Antihistamine Start: 06-27-2024 take 1 tablet by mouth once daily at bedtime as needed for anxiety Hydroxyzine Hcl 50 mg tablet Active 50 MG PO Daily at bedtime as needed for anxiety 03 17June 27, 2024 11:42am Start: 06-21-2024 End: 06-27-2024 take 1 tablet by mouth three times daily as needed for anxiety Hydroxyzine Hcl 25 mg tablet Discontinued 25 MG PO Three times daily as needed for anxiety June 20, 2024 11:00pm June 21, 2024 11:23am lifitegrast 50 mg/ml ophthalmic solution (3 sources) Lymphocyte Function-Associated Antigen-1 Antagonist Start: 05-02-2023 End: 08-07-2024 take 1 dose into the eye(s) in the morning Xiidra 5 % solution Administer 1 each into affected eye(s) in the morning and at noon. 05/02/2023 08/07/2024 Discontinued (Therapy completed) lisinopril 5 mg oral tablet (20 sources) Angiotensin Converting Enzyme Inhibitor Start: 04-08-2024 take 1 tablet by mouth once daily Lisinopril 5 mg tablet Active 0 .ROUTE .COMPLEX 90 April 08, 2024 8:59am TAKE 1 TABLET BY MOUTH EVERY DAY Start: 05-07-2023 End: 04-08-2024 take 1 tablet by mouth in the morning lisinopril 5 MG tablet Take 5 mg by mouth in the morning. 05/07/2023 Active Lisinopril Not-T aking/PRN Lisinopril Not-T aking Lisinopril Activ e OneTouch Ultra - (8 sources) OneTouch Ultra - USE 1 STRIP TO CHECK HOME BLOOD SUGAR for 25 Active potassium 99 mg extended release oral tablet (13 sources) Start: 10-27-2023 take 1 mg by mouth once daily Potassium 99 mg tablet Active MG PO Daily October 27, 2023 12:00am Start: 10-27-2023 take 1 mg by mouth once daily Potassium Active MG PO Daily October 27, 2023 1:00am take 1 tablet by leora th once daily Potassium 99 MG 1 tablet Orally Once a day Active Potassium Active potassium chloride 10 meq extended release oral tablet (3 sources) Start: 04-30-2023 take 1 tablet by mouth in the morning potassium chloride CR (Klor-Con) 10 MEQ ER tablet Take 10 mEq by mouth in the morning. 04/30/2023 Active tiZANidine 4 mg oral tablet (20 sources) Central alpha-2 Adrenergic Agonist Start: 10-27-2023 take 1 tablet by mouth once daily at bedtime Tizanidine 4 mg tablet Active 4 MG PO Daily at bedtime October 27, 2023 12:00am Start: 05-16-2023 take 1 tablet by leora th every six hours as needed tiZANidine (Zanaflex) 4 MG tablet Take 4 mg by mouth every 6 (six) hours if needed. 05/16/2023 Active take 1 tablet by leora th once daily at bedtime tiZANidine HCl 4 MG TAKE 1 TABLET BY MOUTH EVERYDAY AT BEDTIME for 30 Active take 1 tablet by leora th every eight hours tiZANidine HCl 4 MG 1 tablet as needed Orally every 8 hrs Active Trulicity 4.5 MG/0.5ML solution pen-injector (3 sources) Start: 05-03-2023 inject 4.5 mg by subcutaneous injection every week Trulicity 4.5 MG/0.5ML solution pen-injector Inject 4.5 mg under the skin 1 (one) time per week. 05/03/2023 Active Completed/Discontinued Medications Medication Drug Class(es) Dates Sig (Normalized) Sig (Original) baclofen 10 mg oral tablet (12 sources) gamma-Aminobutyri c Acid-ergic Agonist Start: 10-27-2023 End: 01-27-2024 take 1 tablet by mouth twice daily Baclofen 10 mg tablet Discontinued 10 MG PO Twice daily October 27, 2023 12:00am January 27, 2024 12:15pm take 1 tablet by mouth every twe lve hours Baclofen 10 MG 1 tablet as needed Orally Twice a day Active cabergoline 0.5 mg oral tablet (20 sources) Ergot Derivative take 1 tablet by mouth two times weekly as needed Cabergoline 0.5 MG 1 tablet Orally 2 times a week Not-Taking/PRN cefdinir 300 mg oral capsule (3 sources) Cephalosporin Antibacterial Start: End: take 1 capsule by mouth every twelve hours Cefdinir 300 mg capsule Discontinued 300 MG PO Every 12 hours 20 January 26, 2024 11:00pm April 16, 2024 7:34am Dexamethasone / Neomycin / Polymyxin B (20 sources) Aminoglycoside Antibacterial, Polymyxin-class Antibacterial, Corticosteroid Start: take 2 drop(s) into the eye(s) three times daily as needed Maxitrol 3.5-28712-9.1 2 drops into affected eye Ophthalmic Three times a day for 7 days Sep, Not-Taking/PRN Start: 09-13-2020 take 2 drop(s) into the eye(s) three times daily Maxitrol 3.5-24418-4.1 2 drops into affected eye Ophthalmic Three times a day for 7 days Sep, Not-Taking Start: 09-13-2020 take 2 drop(s) into the eye(s) three times daily Maxitrol 3.5-91823-4.1 2 drops into affected eye Ophthalmic Three times a day for 7 days Sep, Active Ketorolac (20 sources) Nonsteroidal Anti-inflammatory Drug, Cyclooxygenase Inhibitor Start: 06-22-2019 Toradol per 15 mg Jun, 30 mg metFORMIN hydrochloride 1000 mg oral tablet (19 sources) Biguanide Start: 03-28-2024 End: 04-16-2024 take 1 tablet by mouth twice daily Metformin 1,000 mg tablet Discontinued 0 .ROUTE .COMPLEX 180 March 28, 2024 7:45am April 16, 2024 7:33am TAKE 1 TABLET BY MOUTH TWICE A DAY FOR 30 DAYS Start: 10-27-2023 End: 03-28-2024 take 1 tablet by mouth twice daily Metformin 1,000 mg tablet Discontinued 1000 MG PO Twice daily October 27, 2023 12:00am March 28, 2024 7:45am Start: 04-19-2023 take 1 tablet by leora th every twelve hours metFORMIN HCl 1000 MG 1 tablet Orally twice a day Apr, Active Start: 05-29-2022 End: 08-07-2024 take 1 tablet by mouth in the morning metFORMIN (Glucophage) 500 MG tablet Take 500 mg by mouth in the morning and 500 mg in the evening. Take with meals. Take with food. . 05/29/2022 08/07/2024 Discontinued (Therapy completed) methylPREDNISolone (20 sources) Corticosteroid Start: 03-09-2015 Depo-Medrol 80 mg Feb, 80 mg Nirmatrelvir-Ritonavir (Paxlovid) 300 mg (150 mg x 2)-100 mg tablets,dose pack (6 sources) Start: 10-27-2023 End: 12-20-2023 take 2 tablets by mouth once, then take 1 tablet by mouth twice daily Nirmatrelvir-Blu navir (Paxlovid) 300 mg (150 mg x 2)-100 mg tablets,dose pack Discontinued 0 PO per package directions 07 02October 27, 2023 12:00am December 20, 2023 5:10pm take TWO 150 mg tablets of nirmatrelvir with ONE 100 mg tablet of ritonavir twice daily for 5 days orally per package directions; Start: 10-27-2023 End: 12-20-2023 take 2 tablets [...] for 5 days orally per package directions; phentermine hydrochloride 37.5 mg oral tablet (20 sources) Sympathomimetic Amine Anorectic Start: 10-27-2023 End: 06-21-2024 take 1 tablet by mouth once daily Phentermine 37.5 mg tablet Discontinued 37.5 MG PO Daily May 28, 2024 1:05pm June 21, 2024 11:11am start 05/28 Start: 10-23-2023 take 1 tablet by leora once daily [...] for 30 days Rx #1 Aug, Active predniSONE 20 mg oral tablet (8 sources) Start: 05-26-2023 take 1 tablet by mouth every twelve hours predniSONE 20 MG 1 tablet Orally bid for 5 day(s) May, Not-Taking/PRN Toradol 30 mg/ml (8 sources) Start: 05-26-2023 Toradol 30 mg/ ml May, 30 mg triamcinolone acetonide 5 mg/ml topical cream (20 sources) Corticosteroid Start: 10-27-2023 End: 01-27-2024 Triamcinolone Acetonide 0.5 % cream Discontinued 1 APPLIC TOPICAL Twice daily October 27, 2023 12:00am January 27, 2024 12:16pm Start: 05-26-2023 Kenalog-40 May, 40 mg Start: [...] bronchitis due to other specified organisms] Episodic Anxiety disorders (3 sources) Panic attack; 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: [Panic disorder [episodic paroxysmal anxiety]] 06-21-2024 Chronic Cardiac dysrhythmias (5 sources) Palpitations; 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: [Palpitations] Onset: 7 04-16-2024 Episodic Chronic obstructive pulmonary disease and bronchiectasis [...] menstrual cycle] Onset: 7 Chronic Mood disorders (16 sources) Moderate major depression, single episode; 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: [Major depressive disorder, single episode, moderate] Chronic Mycoses (2 sources) Candidiasis; 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: [Candidiasis, unspecified] Episodic Nonmalignant breast conditions (17 sources) Large breast; 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: [Macromastia] Onset: 6 Episodic Other aftercare (2 sources) High risk drug monitoring status; 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: [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] Episodic Other [...] (8 sources) Cough; 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: [Cough] Episodic Other lower respiratory disease (2 sources) Hypoxia; 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: [Hypoxemia] 08-07-2024 Episodic Other lower respiratory disease (2 sources) Snoring; 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: [Snoring] 08-07-2024 Episodic Other nervous system disorders (1 source) Other chronic pain; 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: [OTHER CHRONIC PAIN] Onset: 3 Chronic Other nervous system disorders (1 source) Other specified mononeuropathies; 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: [OTHER SPECIFIED MONONEUROPATHIES] Onset: 2 Chronic Other nervous system disorders (1 source) Carpal tunnel syndrome of right wrist; 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: [Carpal tunnel syndrome, right upper limb] 06-21-2024 Chronic Other nervous system disorders (1 source) Carpal tunnel syndrome, right upper limb; 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: [Carpal tunnel syndrome] 06-21-2024 Chronic Other nutritional; endocrine; and metabolic disorders [...] nutritional; endocrine; and metabolic disorders (7 sources) Obesity; 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: [Obesity, unspecified] 01-15-2024 Chronic Other nutritional; endocrine; and metabolic disorders (2 sources) Hypercalcemia; 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: [Hypercalcemia] Onset: 8 Chronic Other nutritional; endocrine; and metabolic disorders (7 sources) Severe obesity; 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: [Morbid (severe) obesity due to excess calories] Chronic Other nutritional; endocrine; and metabolic disorders (3 sources) Body mass index (BMI) 50.0-59.9, adult Chronic Other nutritional; endocrine; and metabolic disorders (3 sources) Obesity caused by energy imbalance; 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: [Morbid (severe) obesity due to excess calories] 10-27-2023 Chronic Other nutritional; endocrine; and metabolic disorders (3 sources) Obesity, unspecified; 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: [Obesity, unspecified] 01-15-2024 Chronic [...] 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: [Acute maxillary sinusitis] Onset: 5 Episodic Otitis media and related conditions (6 sources) Eustachian tube salpingitis; 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: [Unspecified Eustachian salpingitis, right ear] Onset: 8 01-27-2024 Episodic Phlebitis; thrombophlebitis and thromboembolism (2 sources) Phlebitis and thrombophlebitis; 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: [Phlebitis and thrombophlebitis of unspecified site] Episodic Residual codes; unclassified (20 sources) Obstructive sleep apnea syndrome; 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: [Obstructive sleep apnea (adult) (pediatric)] 01-13-2024 Chronic Residual codes; unclassified (12 sources) Obstructive sleep apnea (adult) (pediatric); 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: [Obstructive sleep apnea (adult)(pediatric)] Onset: Chronic Residual codes; unclassified (2 sources) Hypersomnia; 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: [Hypersomnia, unspecified] 08-07-2024 Chronic Residual codes; unclassified (2 sources) Postprocedural state finding; 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: [Other specified postprocedural states] Episodic Residual codes; unclassified (2 sources) Immunization refused ; 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: [Immunization not carried out because of patient refusal] Episodic Residual codes; unclassified (2 sources) Pain; 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: [Pain, unspecified] Episodic Residual codes; unclassified (1 source) Insomnia; 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: [Insomnia, unspecified] 06-21-2024 Episodic Residual codes; unclassified (2 sources) Insomnia, unspecified; 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: [Insomnia, unspecified] 06-21-2024 Episodic Skin and subcutaneous tissue infections (2 [...] issue of repeat prescription] Onset: 11-13-2015 Episodic Contraceptive and procreative management (2 sources) [...] cyst; 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: [Sebaceous cyst] Onset: 08-03-2015 Episodic Residual codes; unclassified (1 source) Family [...] 3V*on 023 XR hand RT min 3V* [facility] [place] [address] XRay Report Signed Patient: Jing Gray MR#: [id number] 1 : 1975 Acct:[id number] Age/Sex: 47 / F ADM Date: 01/11/23 [facility]: Type: [facility] Attending Dr: Angélica FELIZ Copies to: [...] Blake Marino M.D.01/11/2023 6:08 PM Dictation Location: [place] [address] Transcribed By: [facility] 01/11/231807 Dictated By: Blake Marino DO 01/11/231806 Signed By: 01/11/231807 [facility] XR hand RT min 3V* [facility] [employer] Other XR hand RT min 3V* [facility] [employer] Other XR hand RT min 3V* [address] [facility] [employer] Other XR hand RT min 3V* [place] [address] [employer] Other XR hand RT min 3V* XRay Report [employer] Other XR hand RT min 3V* Signed [employer] Other XR hand RT min 3V* Patient: Jing Gray MR#: [id number] [employer] Other XR hand RT min 3V* 1 [employer] Other XR hand RT min 3V* : 1975 Acct:[id number] [employer] Other XR hand RT min 3V* Age/Sex: 47 / F ADM Date: 01/11/23 [employer] Other XR hand RT min 3V* Loc: [facility] Room: Type: [facility] [employer] Other XR hand RT min 3V* Attending Dr: Angélica FELIZ [employer] Other XR hand RT min 3V* Copies to: TRINI Alvarado [employer] Other XR hand RT min 3V* Ordering Provider: TRINI Alvarado [employer] Other XR hand RT min 3V* Date of Service: 01/11/23 [employer] Other XR hand RT min 3V* XR/XR hand RT min 3V*: RIGHT HAND INJURY [employer] Other XR hand RT min 3V* 3 views right hand plain film [employer] Other XR hand RT min 3V* COMPARISON: None [employer] Other XR hand RT min 3V* HISTORY: Fourth and fifth metacarpal injury [employer] Other XR hand RT min 3V* ACUTE FINDINGS: None [employer] Other XR hand RT min 3V* DEGENERATIVE CHANGE: Unremarkable [employer] Other XR hand RT min 3V* SOFT TISSUE FINDINGS: Unremarkable [employer] Other XR hand RT min 3V* JOINT EFFUSION: None [employer] Other XR hand RT min 3V* POSTOP CHANGES: None [employer] Other XR hand RT min 3V* BONY MINERALIZATION: Adequate [employer] Other XR hand RT min 3V* XR/XR hand RT min 3V* [employer] Other XR hand RT min 3V* IMPRESSION: No acute findings [employer] Other XR hand RT min 3V* Impression dictated by: Blake Marino M.D.01/11/2023 6:08 PM [employer] Other XR hand RT min 3V* Dictation Location: [facility]03 [employer] Other XR hand RT min 3V* Transcribed By: P[facility] 01/11/231807 [employer] Other XR hand RT min 3V* Dictated By: Blake Marino DO 01/11/231806 [employer] Other XR hand RT min 3V* Signed By: [employer] Other XR hand RT min 3V* 01/11/23 180 [facility] [employer] Other PROLACTINon 01-06-2023 Prolactin 34.5 ng/mL Critically high 4.8-23.3 [facility] Comment on above: Performed By: #### P ROLAC #### [facility] [address] [place] [address] [address] Digna Thomas CBC AUTO DIFFon 01-05-2023 BASO # 0.1 103/ul Normal 0.0-0.1 [facility] Comment on above: Performed By: #### C BC ####[facility] [address] [place] [address]DrNile Thomas Basophils/100 WBC (Bld) 0.8 % Normal 0.2-2.0 [facility] Comment on above: Performed By: #### C BC ####[facility] [address] [place] [address]DrNile Thomas EO # 0.5 103/ul Normal 0.0-0.7 [facility] Comment on above: Performed By: #### C BC ####[facility] [address] [place] [address]DrNile Thomas Eosinophils/100 WBC (Bld) 5.0 % Normal 0.9-7.0 [facility] Comment on above: Performed By: #### C BC ####[facility] [address] [place] [address]DrNile Thomas Erythrocyte distribution width (RBC) [Ratio] 13.0 % Normal 11.0-15.0 [facility] Comment on above: Performed By: #### C BC ####[facility] [address] [place] [address]DrNile Thomas Hematocrit (Bld) [Volume fraction] 44.6 % Normal 36.0-48.0 [facility] Comment on above: Performed By: #### C BC ####[facility] [address] [place] [address]DrNile Thomas Hemoglobin (Bld) [Mass/Vol] 14.4 g/dL Normal 12.0-16.0 [facility] Comment on above: Performed By: #### C BC ####[facility] [address] [place] [id number]. Digna Thomas IG # 0.05 10e3/ul Critically high 0.00-0.03 [facility] Comment on above: Performed By: #### C BC ####[facility] [address] [place] [id number]. Digna Thomas IG % 0.5 % Normal 0.0-0.5 [facility] Comment on above: Performed By: #### C BC ####[facility] [address] [place] [id number]. Digna Thomas LYMPH # 2.3 103/ul Normal 1.2-3.8 [facility] Comment on above: Performed By: #### C BC ####[facility] [address] [place] [address]Dr. Digan Thomas Lymphocytes/100 WBC (Bld) 23.0 % Normal 20.5-60.0 [facility] Comment on above: Performed By: #### C BC ####[facility] [address] [place] [id number]. Digna Thomas MANUAL DIFF REQ NO Normal [facility] Comment on above: Performed By: #### C BC ####[facility] [address] [place] [id number]. Digna Thomas MCH (RBC) [Entitic mass] 28.3 pg Normal 26.7-34.0 [facility] Comment on above: Performed By: #### C BC ####[facility] [address] [place], [place] [id number]. Digna Thomas MCHC (RBC) [Mass/Vol] 32.3 g/dL Normal 29.9-35.2 [facility] Comment on above: Performed By: #### C BC ####[facility] [address] [place] [address]Dr. Digna Thomas MCV (RBC) [Entitic vol] 87.8 fL Normal 81.0-99.0 [facility] Comment on above: Performed By: #### C BC ####[facility] [address] [place] [id number]. Digna Thomas MONO # 0.8 103/ul Normal 0.3-0.8 [facility] Comment on above: Performed By: #### C BC ####[facility] [address]ri[address] [place] [id number]. Digna Thomas Monocytes/100 WBC (Bld) 7.9 % Normal 1.7-12.0 [facility] Comment on above: Performed By: #### C BC ####[facility] [address] [place] [id number]. Digna Thomas NEUT # 6.3 103/ul Normal 1.4-6.5 [facility] Comment on above: Performed By: #### C BC ####[facility] [address] [place] [address]Dr. Digna Thomas Neutrophils/100 WBC (Bld) 62.8 % Normal 43.0-75.0 [facility] Comment on above: Performed By: #### C BC ####[facility] [address] [place] [id number]. Digna Thomas Platelet mean volume (Bld) [Entitic vol] 9.9 fL Normal 9.5-13.5 [facility] Comment on above: Performed By: #### C BC ####[facility] [address] [place] [id number]. Digna Thomas PLT 223 103/ul Normal 150-450 [facility] Comment on above: Performed By: #### C BC ####[facility] Pb[address] [place], [place] [address]Dr. Digna Thomas RBC 5.08 106/ul Normal 4.20-5.40 [facility] Comment on above: Performed By: #### C BC ####[facility] C[address] [place], [place] [address]Dr. Digna Thomas WBC 10.0 103/ul Normal 4.0-11.0 [facility] Comment on above: Performed By: #### C BC ####[facility] [address] [place], [place] [address]UzDr. Digna Thomas LIPID PROFILEon 01-05-2023 CHOL-HDL RATIO NORM SEE BELOW Normal [facility] Comment on above: Result Comment: 3.3 - 4.4 LOW RISK 4.4 - 7.1 AVERAGE RISK 7.1 - 11.0 MODERATE RISK >11.0 HIGH RISK Performed By: #### B MP, TSH, LIPID #### [facility] [address] [address] [address] Digna Thomas Cholesterol [Mass/Vol] 179 mg/dL Normal <=200 [facility] Comment on above: Performed By: #### B MP, TSH, LIPID #### [facility] [address] [address] [address] Digna Thomas Cholesterol in HDL [Mass/Vol] 55 mg/dL Normal 40-60 [facility] Comment on above: Performed By: #### B MP, TSH, LIPID #### [facility] [address] [address] [address] Digna Thomas Cholesterol in LDL [Mass/Vol] 103.8 mg/dL Normal [facility] Comment on above: Performed By: #### B MP, TSH, LIPID #### [facility] [address] [address] [address] Digna Thomas Cholesterol.total/Ch olesterol in HDL [Mass ratio] 3.3 {ratio} Normal [facility] Comment on above: Performed By: #### B MP, TSH, LIPID #### [facility] [address] [address] [address] Digna Thomas HDL NORMAL > or = 60 mg/dl - LOW CARDIOVASCULAR RISK <40 mg/dl - HIGH CARDIOVASCULAR RISK Normal [facility] Comment on above: Performed By: #### B MP, TSH, LIPID #### [facility] [id number] Digna Thomas LDL CALC NORMAL SEE BELOW Normal [facility] Comment on above: Result Comment: <100 mg/dl OPTIMAL 100 - 129 mg/dl NEAR OR ABOVE OPTIMAL 130 - 159 mg/dl BORDERLINE HIGH 160 - 189 mg/dl HIGH >190 mg/dl VERY HIGH Performed By: #### B MP, TSH, LIPID #### [facility] [address] [address] [address] Digna Thomas Triglyceride [Mass/Vol] 101 mg/dL Normal <=150 [facility] Comment on above: Performed By: #### B MP, TSH, LIPID #### [facility] [address] [address] [address] Digna Thomas VLDL CALC 20.2 mg/dL Normal [facility] Comment on above: Performed By: #### B MP, TSH, LIPID #### [facility] [address] [address] [address] Digna Thomas PROF CHEM 8 (BAS METB)on Anion gap [Moles/Vol] 13.3 mmol/L Normal [facility] Comment on above: Performed By: #### B MP, TSH, LIPID #### [facility] [address] [place] [address] Dr. Digna Thomas Calcium [Mass/Vol] 9.4 mg/dL Normal 8.5-10.1 [facility] Comment on above: Performed By: #### B MP, TSH, LIPID #### [facility] [address] [place] [address] Dr. Digna Thomas Chloride [Moles/Vol] 104 mmol/L Normal 98-107 [facility] Comment on above: Performed By: #### B MP, TSH, LIPID #### [facility] [address] [address] [address] Digna Thomas CO2 [Moles/Vol] 27.1 mmol/L Normal 21.0-32.0 [facility] Comment on above: Performed By: #### B MP, TSH, LIPID #### [facility] [address] [address] [address] Digna Thomas Creatinine [Mass/Vol] 0.71 mg/dL Normal 0.55-1.02 [facility] Comment on above: Performed By: #### B MP, TSH, LIPID #### [facility] [address] [place] [address] Dr. Digna Thomas EGFR-AF GABONESE >60 Normal >=60 [facility] Comment on above: Performed By: #### B MP, TSH, LIPID #### [facility] [address] [place] [address] Dr. Digna Thomas EGFR-NON AF GABONESE >60 Normal >=60 [facility] Comment on above: Performed By: #### B MP, TSH, LIPID #### [facility] [address] [place] [address] Dr. Digna Thomas Glucose [Mass/Vol] 163 mg/dL Critically high 74-106 [facility] Comment on above: Performed By: #### B MP, TSH, LIPID #### [facility] [address] [place] [address] Dr. Digna Thomas Potassium [Moles/Vol] 4.4 mmol/L Normal 3.5-5.1 [facility] Comment on above: Performed By: #### B MP, TSH, LIPID #### [facility] [address] [place] [address] Dr. Digna Thomas Sodium [Moles/Vol] 140 mmol/L Normal 136-145 [facility] Comment on above: Performed By: #### B MP, TSH, LIPID #### [facility] [address] [place] [address] Dr. Digna Thomas Urea nitrogen [Mass/Vol] 15.0 mg/dL Normal 7.0-18.0 [facility] Comment on above: Performed By: #### B MP, TSH, LIPID #### [facility] [address] [place] [address] Dr. Digna Thomas Urea nitrogen/Creatinine [Mass ratio] 21.1 mg/mg Normal [facility] Comment on above: Performed By: #### B MP, TSH, LIPID #### [facility] [address] [place] [address] Dr. Digna Thomas TSHon 01-05-2023 TSH 3.955 uIU/mL Critically high 0.358-3.740 [facility] Comment on above: Performed By: #### B MP, TSH, LIPID #### [facility] [address] [place] [address] Dr. Digna Thomas XR CSPINE MIN 4 [...] by: FELIPE TRINH Date: 2022-11-04 08:02 Normal [facility] GLYCOHEMOGLOBIN A1Con 2022 ADA RECOMMENDATION SEE BELOW Normal [facility] Comment on above: Result Comment: ADA RECOMMENDED LIMIT 4.0 - 6.0 ADA THERAPEUTIC TARGET < 7.0 ACTION SUGGESTED > 7.0 Performed By: #### A 1C ####[facility] [address] [place] [address]Dr. Digna Thomas Glucose [Mass/Vol] 166 mg/dL Normal [facility] Comment on above: Performed By: #### A 1C ####[facility] [address] [place] [address]DrNile Thomas HbA1c (Bld) [Mass fraction] 7.4 % Critically high 4.5-6.2 [facility] Comment on above: Performed By: #### A 1C ####[facility] [address] [place] [address]Dr. Digna Thomas PROLACTINon 07-12-2022 Prolactin 48.0 ng/mL Critically high 4.8-23.3 [facility] Comment on above: Performed By: #### P ROLAC #### [facility] [address] [address] [address] Digna Thomas CBC AUTO DIFFon 07-11-2022 BASO # 0.1 103/ul Normal 0.0-0.1 [facility] Comment on above: Performed By: #### C BC ####[facility] [address] [place] [address]DrNile Thomas Basophils/100 WBC (Bld) 0.8 % Normal 0.2-2.0 [facility] Comment on above: Performed By: #### C BC ####[facility] [address] [place] [address]Dr. Digna Thomas EO # 0.7 103/ul Normal 0.0-0.7 [facility] Comment on above: Performed By: #### C BC ####[facility] [address] [place] [address]Dr. Digna Thomas Eosinophils/100 WBC (Bld) 5.8 % Normal 0.9-7.0 [facility] Comment on above: Performed By: #### C BC ####[facility] [address] [place], [place] [address]Dr. Digna Thomas Erythrocyte distribution width (RBC) [Ratio] 12.7 % Normal 11.0-15.0 [facility] Comment on above: Performed By: #### C BC ####[facility] [address] [place], [place] [address]Dr. Digna Thomas Hematocrit (Bld) [Volume fraction] 45.4 % Normal 36.0-48.0 [facility] Comment on above: Performed By: #### C BC ####[facility] D[address]rix[address] [place], [place] [address]Dr. Digna Thomas Hemoglobin (Bld) [Mass/Vol] 15.3 g/dL Normal 12.0-16.0 [facility] Comment on above: Performed By: #### C BC ####[facility] [address] [place], [place] [address]Dr. Digna Thomas IG # 0.04 10e3/ul Critically high 0.00-0.03 [facility] Comment on above: Performed By: #### C BC ####[facility] [address]is[address] [place], [place] [address]Dr. Anajs Thomas IG % 0.3 % Normal 0.0-0.5 [facility] Comment on above: Performed By: #### C BC ####[facility] [address] [place], [place] [address]Dr. Digna Thomas LYMPH # 3.3 103/ul Normal 1.2-3.8 [facility] Comment on above: Performed By: #### C BC ####[facility] [address] [place] [address]Dr. Digna Thomas Lymphocytes/100 WBC (Bld) 28.1 % Normal 20.5-60.0 [facility] Comment on above: Performed By: #### C BC ####[facility] [address] [place] [address]Dr. Digna Thomas MANUAL DIFF REQ NO Normal [facility] Comment on above: Performed By: #### C BC ####[facility] [address] [place] [id number]. Digna Thomas MCH (RBC) [Entitic mass] 29.2 pg Normal 26.7-34.0 [facility] Comment on above: Performed By: #### C BC ####[facility] [address] [place], [place] [address]Dr. Digna Thomas MCHC (RBC) [Mass/Vol] 33.7 g/dL Normal 29.9-35.2 [facility] Comment on above: Performed By: #### C BC ####[facility] [address] [place], [place] [address]Dr. Digna Thomas MCV (RBC) [Entitic vol] 86.6 fL Normal 81.0-99.0 [facility] Comment on above: Performed By: #### C BC ####[facility] [address] [place] [address]Dr. Digna Thomas MONO # 0.8 103/ul Normal 0.3-0.8 [facility] Comment on above: Performed By: #### C BC ####[facility] [address] [place], [place] [address]Dr. Digna Thomas Monocytes/100 WBC (Bld) 6.4 % Normal 1.7-12.0 [facility] Comment on above: Performed By: #### C BC ####[facility] [address] [place], [place] [address]DrNile Thomas NEUT # 6.9 103/ul Critically high 1.4-6.5 [facility] Comment on above: Performed By: #### C BC ####[facility] [address] [place] [address]Dr. Digna Thomas Neutrophils/100 WBC (Bld) 58.6 % Normal 43.0-75.0 [facility] Comment on above: Performed By: #### C BC ####[facility] [address]ud[address] [place] [id number]. Digna Thomas Platelet mean volume (Bld) [Entitic vol] 10.0 fL Normal 9.5-13.5 [facility] Comment on above: Performed By: #### C BC ####[facility] [address] [place] [address]Dr. Digna Thomas PLT 242 103/ul Normal 150-450 [facility] Comment on above: Performed By: #### C BC ####[facility] [address] [place] [address]Dr. Digna William RBC 5.24 106/ul Normal 4.20-5.40 [facility] Comment on above: Performed By: #### C BC ####[facility] [address] [place] [address]Dr. Digna Thomas WBC 11.8 103/ul Critically high 4.0-11.0 [facility] Comment on above: Performed By: #### C BC ####[facility] [address] [place] [address]Dr. Digna Thomas GLYCOHEMOGLOBIN A1Con 2021 ADA RECOMMENDATION SEE BELOW Normal [facility] Comment on above: Result Comment: ADA RECOMMENDED LIMIT 4.0 - 6.0 ADA THERAPEUTIC TARGET < 7.0 ACTION SUGGESTED > 7.0 Performed By: #### A 1C ####[facility] [address] [place], [place] [address]Dr. Digna Thomas Glucose [Mass/Vol] 183 mg/dL Normal [facility] Comment on above: Performed By: #### A 1C ####[facility] [address] [place] [address]Dr. Digna Thomas HbA1c (Bld) [Mass fraction] 8.0 % Critically high 4.5-6.2 [facility] Comment on above: Performed By: #### A 1C ####[facility] [address] [place] [address]Dr. Digna Thomas LIPID PROFILEon 07-11-2022 CHOL-HDL RATIO NORM SEE BELOW Normal [facility] Comment on above: Result Comment: 3.3 - 4.4 LOW RISK 4.4 - 7.1 AVERAGE RISK 7.1 - 11.0 MODERATE RISK >11.0 HIGH RISK Performed By: #### B MP, LIPID, TSH ####[facility] [address] [place] [address]Dr. Digna Thomas Cholesterol [Mass/Vol] 161 mg/dL Normal <=200 [facility] Comment on above: Performed By: #### B MP, LIPID, TSH ####[facility] [address] [place] [address]Dr. Anajs William Cholesterol in HDL [Mass/Vol] 51 mg/dL Normal 40-60 [facility] Comment on above: Performed By: #### B MP, LIPID, TSH ####[facility] [address] [place] [address]Dr. Digna Thomas Cholesterol in LDL [Mass/Vol] 86.2 mg/dL Normal [facility] Comment on above: Performed By: #### B MP, LIPID, TSH ####[facility] [address]ay[address] [place] [address]Dr. Anajs William Cholesterol.total/Ch olesterol in HDL [Mass ratio] 3.2 {ratio} Normal [facility] Comment on above: Performed By: #### B MP, LIPID, TSH ####[facility] [address] [place] [address]Dr. Anajs William HDL NORMAL > or = 60 mg/dl - LOW CARDIOVASCULAR RISK <40 mg/dl - HIGH CARDIOVASCULAR RISK Normal [facility] Comment on above: Performed By: #### B MP, LIPID, TSH ####[facility] [address] [place] [id number]. Anajs William LDL CALC NORMAL SEE BELOW Normal [facility] Comment on above: Result Comment: <100 mg/dl OPTIMAL 100 - 129 mg/dl NEAR OR ABOVE OPTIMAL 130 - 159 mg/dl BORDERLINE HIGH 160 - 189 mg/dl HIGH >190 mg/dl VERY HIGH Performed By: #### B MP, LIPID, TSH ####[facility] [address] [place], [place] [address]Ps. Digna Thomas Triglyceride [Mass/Vol] 119 mg/dL Normal <=150 [facility] Comment on above: Performed By: #### B MP, LIPID, TSH ####[facility] [address] [place], [place] [address]Ax. Digna Thomas VLDL CALC 23.8 mg/dL Normal [facility] Comment on above: Performed By: #### B MP, LIPID, TSH ####[facility] [address] [place], [place] [address]Qu. Digna Thomas MG MAMM SCREEN 3D JANE CADon 07-11-2022 MG MAMM SCREEN 3D JANE CAD Patient: JING GRAY Exam Date: 07/11/2022 : 1975 Gender:F Ordering : DR KELECHI GALVAN D.O. Admission #: [id number] Family : Order #: [id number] CLICK HERE TO VIEW EXAM RADIOLOGY REPORT [...] bladder cancer at age 51. LOCATION: [facility] BREAST COMPOSITION: Scattered areas fibroglandular [...] Cagle MD on 07/11/2022 at 10:14 Normal [facility] MICROALBUMIN, RAND URon 10-3 mALB 10.1 mg/L Normal <=30.0 [facility] Comment on above: Performed By: #### M ALBR #### [facility] [address] [place], [place] [address] Dr. Digna Thomas PROF CHEM 8 (BAS METB)on Anion gap [Moles/Vol] 10.6 mmol/L Normal [facility] Comment on above: Performed By: #### B MP, LIPID, TSH ####[facility] [address] [place] [address]DrNile Thomas Calcium [Mass/Vol] 9.3 mg/dL Normal 8.5-10.1 [facility] Comment on above: Performed By: #### B MP, LIPID, TSH ####[facility] [address] [place] [address]DrNile Thomas Chloride [Moles/Vol] 99 mmol/L Normal 98-107 [facility] Comment on above: Performed By: #### B MP, LIPID, TSH ####[facility] [address]zw[address]lf[address] [place] [address]DrNile Thomas CO2 [Moles/Vol] 28.3 mmol/L Normal 21.0-32.0 [facility] Comment on above: Performed By: #### B MP, LIPID, TSH ####[facility] [address]aze[address] [place] [address]DrNile Thomas Creatinine [Mass/Vol] 0.74 mg/dL Normal 0.55-1.02 [facility] Comment on above: Performed By: #### B MP, LIPID, TSH ####[facility] [address] [place] [address]DrNile Thomas EGFR-AF GABONESE >60 Normal >=60 [facility] Comment on above: Performed By: #### B MP, LIPID, TSH ####[facility] [address] [place] [address]Dr. Digna Thomas EGFR-NON AF GABONESE >60 Normal >=60 [facility] Comment on above: Performed By: #### B MP, LIPID, TSH ####[facility] [address] [place] [address]Dr. Digna Thomas Glucose [Mass/Vol] 190 mg/dL Critically high 74-106 [facility] Comment on above: Performed By: #### B MP, LIPID, TSH ####[facility] [address] [place] [address]Dr. Digna Thomas Potassium [Moles/Vol] 3.9 mmol/L Normal 3.5-5.1 [facility] Comment on above: Performed By: #### B MP, LIPID, TSH ####[facility] [address] [place] [address]Dr. Digna Thomas Sodium [Moles/Vol] 134 mmol/L Critically low 136-145 [facility] Comment on above: Performed By: #### B MP, LIPID, TSH ####[facility] [address] [place] [address]Dr. Digna Thomas Urea nitrogen [Mass/Vol] 13.0 mg/dL Normal 7.0-18.0 [facility] Comment on above: Performed By: #### B MP, LIPID, TSH ####[facility] [address] [place] [address]Dr. Digna Thmoas Urea nitrogen/Creatinine [Mass ratio] 17.6 mg/mg Normal [facility] Comment on above: Performed By: #### B MP, LIPID, TSH ####[facility] [address] [place] [address]Dr. Digna Thomas TSHon 07-11-2022 TSH 4.084 uIU/mL Critically high 0.358-3.740 [facility] Comment on above: Performed By: #### B MP, LIPID, TSH #### [facility] [address] [address] [address] Digna Thomas Vital Signs Date Time Vital Sign Value Performing Clinician Facility 08-07-2024 13:26-0500 Body height 165.1 cm Antione Cassy DO Work Phone: [facility] 08-07-2024 13:26-0500 Body mass index (BMI) [Ratio] 45.43 kg/m2 Antione Cassy DO Work Phone: [facility] 08-07-2024 13:26-0500 Body weight 123.83 kg Antione Cassy DO Work Phone: [facility] 08-07-2024 13:26-0500 Diastolic blood pressure 74 mm[Hg] Antione Cassy DO Work Phone: [facility] 08-07-2024 13:26-0500 Heart rate 70 /min Antione Cassy DO Work Phone: [facility] 08-07-2024 13:26-0500 SaO2% (BldA) [Mass fraction] 97 % Antione Cassy DO Work Phone: [facility] 08-07-2024 13:26-0500 Systolic blood pressure 118 mm[Hg] Antione Cassy DO Work Phone: [facility] 07-22-2024 10:35-0500 Body height 165.1 cm [facility] 07-22-2024 10:35-0500 Body mass index (BMI) [Ratio] 44.1 kg/m2 [facility] 07-22-2024 10:35-0500 Body weight 120.25 kg [facility] 07-22-2024 10:35-0500 Diastolic blood pressure 95 mm[Hg] [facility] 07-22-2024 10:35-0500 Heart rate 74 /min [facility] 07-22-2024 10:35-0500 Respiratory rate 16 /min [facility] 07-22-2024 10:35-0500 Systolic blood pressure 164 mm[Hg] [facility] 06-21-2024 11:44-0400 Body height 165.1 cm [facility] 06-21-2024 11:44-0400 Body mass index (BMI) [Ratio] 42.3 kg/m2 [facility] 06-21-2024 11:44-0400 Body weight 115.26 kg [facility] 06-21-2024 11:44-0400 Diastolic blood pressure 78 mm[Hg] [facility] 06-21-2024 11:44-0400 Heart rate 71 /min [facility] 06-21-2024 11:44-0400 Respiratory rate 12 /min [facility] 06-21-2024 11:44-0400 Systolic blood pressure 129 mm[Hg] [facility] 04-16-2024 08:34-0400 Body height 165.1 cm [facility] 04-16-2024 08:34-0400 Body mass index (BMI) [Ratio] 40.3 kg/m2 [facility] 04-16-2024 08:34-0400 Body weight 109.99 kg [facility] 04-16-2024 08:34-0400 Diastolic blood pressure 81 mm[Hg] [facility] 04-16-2024 08:34-0400 Heart rate 71 /min [facility] 04-16-2024 08:34-0400 Respiratory rate 12 /min [facility] 04-16-2024 08:34-0400 Systolic blood pressure 117 mm[Hg] [facility] 01-27-2024 13:11-0400 Body height 165.1 cm [facility] 01-27-2024 13:11-0400 Body mass index (BMI) [Ratio] 42.9 kg/m2 [facility] 01-27-2024 13:11-0400 Body temperature 97.1 [degF] [facility] 01-27-2024 13:11-0400 Body weight 117.02 kg [facility] 01-27-2024 13:11-0400 Heart rate 64 /min [facility] 01-27-2024 13:11-0400 Respiratory rate 16 /min [facility] 01-27-2024 13:11-0400 SaO2% (BldA) [Mass fraction] 97 % [facility] 01-15-2024 08:41-0400 Body height 165.1 cm [facility] 01-15-2024 08:41-0400 Body mass index (BMI) [Ratio] 43 kg/m2 [facility] 01-15-2024 08:41-0400 Body weight 117.25 kg [facility] 01-15-2024 08:41-0400 Diastolic blood pressure 79 mm[Hg] [facility] 01-15-2024 08:41-0400 Heart rate 76 /min [facility] 01-15-2024 08:41-0400 Respiratory rate 12 /min [facility] 01-15-2024 08:41-0400 Systolic blood pressure 127 mm[Hg] [facility] 11-20-2023 12:57-0400 Body height 165.1 cm [facility] 11-20-2023 12:57-0400 Body mass index (BMI) [Ratio] 46.3 kg/m2 [facility] 11-20-2023 12:57-0400 Body weight 126.26 kg [facility] 11-20-2023 12:57-0400 Diastolic blood pressure 70 mm[Hg] [facility] 11-20-2023 12:57-0400 Systolic blood pressure 122 mm[Hg] [facility] 10-17-2023 09:00-0500 Body height 165.1 cm Kelechi Ball Other [employer] [facility] [employer] Other 10-17-2023 09:00-0500 Body mass index (BMI) [Ratio] 48.49 kg/m2 Kelechi Ball Other [employer] [facility] [employer] Other 10-17-2023 09:00-0500 Body weight 132.18 kg Kelechi Ball Other [employer] [facility] [employer] Other 10-17-2023 09:00-0500 Diastolic blood pressure 88 mm[Hg] Kelechi Ball Other [facility] [employer] Other 10-17-2023 09:00-0500 Respiratory rate 12 /min Kelechi Ball Other [facility] [employer] Other 10-17-2023 09:00-0500 Systolic blood pressure 138 mm[Hg] Kelechi Ball Other [facility] [employer] Other 09-22-2023 09:00-0500 Body height 165.1 cm Kelechi Ball Other [facility] 09-22-2023 09:00-0500 Body mass index (BMI) [Ratio] 50.25 kg/m2 Kelechi Ball Other [facility] [employer] Other 09-22-2023 09:00-0500 Body weight 136.99 kg Kelechi Ball Other [facility] [employer] Other 09-22-2023 09:00-0500 Body weight 136.98 kg [facility] 09-22-2023 09:00-0500 Diastolic blood pressure 85 mm[Hg] Kelechi Ball Other [facility] 09-22-2023 09:00-0500 Respiratory rate 12 /min Kelechi Ball Other [facility] [employer] Other 09-22-2023 09:00-0500 Systolic blood pressure 136 mm[Hg] Kelechi Ball Other [facility] 08-22-2023 08:30-0500 Body height 165.1 cm Kelechi Ball Other [facility] 08-22-2023 08:30-0500 Body mass index (BMI) [Ratio] 52.95 kg/m2 Kelechi Ball Other [facility] [employer] Other 08-22-2023 08:30-0500 Body weight 144.34 kg Kelechi Ball Other [employer] Other 08-22-2023 08:30-0500 Body weight 144.33 kg [facility] 08-22-2023 08:30-0500 Diastolic blood pressure 75 mm[Hg] Kelechi Ball Other [facility] 08-22-2023 08:30-0500 Respiratory rate 12 /min Kelechi Ball Other [facility] [employer] Other 08-22-2023 08:30-0500 Systolic blood pressure 115 mm[Hg] Kelechi Ball Other [facility] 05-26-2023 09:40-0400 Body height 165.1 cm Angélica Hue Other [employer] Other 05-26-2023 09:40-0400 Body mass index (BMI) [Ratio] 51.88 kg/m2 Angélica Hue Other [employer] Other 05-26-2023 09:40-0400 Body temperature 98 [degF] Angélica Heu Other [employer] Other 05-26-2023 09:40-0400 Body weight 141.43 kg Angélica Hue Other [employer] Other 05-26-2023 09:40-0400 Diastolic blood pressure 68 mm[Hg] Angélica Hue Other [employer] Other 05-26-2023 09:40-0400 Respiratory rate 18 /min Angélica Hue Other [employer] Other 05-26-2023 09:40-0400 SaO2% (BldA) [Mass fraction] 96 % Angélica Hue Other [employer] Other 05-26-2023 09:40-0400 Systolic blood pressure 110 mm[Hg] Angélica Swann Other [employer] Other 02-28-2023 13:15-0400 Body height 165.1 cm Kelechi Ball Other [employer] Other 02-28-2023 13:15-0400 Body mass index (BMI) [Ratio] 52.55 kg/m2 Kelechi Ball Other [employer] Other 02-28-2023 13:15-0400 Body weight 143.25 kg Kelechi Ball Other [employer] Other 02-28-2023 13:15-0400 Diastolic blood pressure 77 mm[Hg] Kelechi Ball Other [employer] Other 02-28-2023 13:15-0400 Respiratory rate 12 /min Kelechi Ball Other [employer] Other 02-28-2023 13:15-0400 Systolic blood pressure 118 mm[Hg] Kelechi Ball Other [employer] Other 01-16-2023 12:30-0400 Body height 165.1 cm Kelechi Ball Other [employer] Other 01-16-2023 12:30-0400 Body mass index (BMI) [Ratio] 52.28 kg/m2 Kelechi Ball Other [employer] Other 01-16-2023 12:30-0400 Body weight 142.52 kg Kelechi Ball Other [employer] Other 01-16-2023 12:30-0400 Diastolic blood pressure 72 mm[Hg] Kelechi Ball Other [employer] Other 01-16-2023 12:30-0400 Respiratory rate 16 /min Kelechi Ball Other [employer] Other 01-16-2023 12:30-0400 Systolic blood pressure 147 mm[Hg] Kelechi Ball Other [employer] Other 01-11-2023 18:10-0400 Body height 165.1 cm Angélica Hue Other [employer] Other 01-11-2023 18:10-0400 Body mass index (BMI) [Ratio] 52.41 kg/m2 Angélica Hue Other [employer] Other 01-11-2023 18:10-0400 Body temperature 99.6 [degF] Angélica Hue Other [employer] Other 01-11-2023 18:10-0400 Body weight 142.88 kg Angélica Hue Other [employer] Other 01-11-2023 18:10-0400 Diastolic blood pressure 64 mm[Hg] Angélica Hue Other [employer] Other 01-11-2023 18:10-0400 Respiratory rate 20 /min Angélica Hue Other [employer] Other 01-11-2023 18:10-0400 SaO2% (BldA) [Mass fraction] 96 % Angélica Hue Other [employer] Other 01-11-2023 18:10-0400 Systolic blood pressure 117 mm[Hg] Angélica Hue Other [employer] Other 10-18-2022 12:00-0500 Body height 165.1 cm Kelechi Ball Other [employer] Other 10-18-2022 12:00-0500 Body mass index (BMI) [Ratio] 52.31 kg/m2 Kelechi Ball Other [employer] Other 10-18-2022 12:00-0500 Body weight 142.61 kg Kelechi Ball Other [employer] Other 10-18-2022 12:00-0500 Diastolic blood pressure 84 mm[Hg] Kelcehi Ball Other [employer] Other 10-18-2022 12:00-0500 Respiratory rate 12 /min Kelechi Threat [employer] Other [employer] Other 10-18-2022 12:00-0500 Systolic blood pressure 122 mm[Hg] Kelechi [employer] Other [employer] Other Encounters Encounter Date Encounter Type Care Provider Facility Start: 08-07-2024 End: 08-07-2024 [employer] GENIACheet Antione Cassy DO Work Phone: [facility] Start: 08-07-2024 End: 08-07-2024 Bamboo flowsheet Antione Cassy DO Work Phone: [employer] [facility] Start: 08-07-2024 End: 08-07-2024 Office outpatient visit 25 minutes Antione Cassy DO Work Phone: [employer] Comment on above: REBA (obstructive sle ep apnea) (Primary Dx); Hypoxia; Hypersomnia; Obesity due to excess calories, unspecified class, unspecified whether serious comorbidity present; Snoring Start: 08-07-2024 End: 08-07-2024 ambulatory ANTIONE CASSY Not Available Start: 07-22-2024 End: 07-22-2024 ambulatory [facility] Work Phone: Start: 07-22-2024 End: 07-22-2024 Patient encounter procedure [facility] Work Phone: Start: 06-21-2024 End: 06-21-2024 ambulatory [facility] Work Phone: Start: 06-21-2024 End: 06-21-2024 Patient encounter procedure [facility] Work Phone: Start: 04-16-2024 End: 04-16-2024 ambulatory [facility] Work Phone: Start: 04-16-2024 End: 04-16-2024 Patient encounter procedure [facility] Work Phone: Start: 01-27-2024 End: 01-27-2024 ambulatory [facility] Work Phone: Start: 01-27-2024 End: 01-27-2024 Patient encounter procedure [facility] Work Phone: Start: 01-15-2024 End: 01-15-2024 ambulatory [facility] Work Phone: Start: 01-15-2024 End: 01-15-2024 Patient encounter procedure [facility] Work Phone: Start: 11-27-2023 End: 11-28-2023 ambulatory Joe Becerra MD Facility: [place] Start: 11-20-2023 Non-patient / Non-visit [facility] Work Phone: Start: 10-27-2023 End: 10-27-2023 ambulatory [facility] Work Phone: Start: 10-27-2023 End: 10-27-2023 Patient encounter procedure [facility] Work Phone: Start: 10-20-2023 End: 10-20-2023 ambulatory Kelechi Ball Other [employer] Other Start: 10-20-2023 Encounter by alysha lizarraga Kelechi Galvan [facility] Start: 10-17-2023 End: 10-17-2023 ambulatory Kelechi Ball Other [employer] Other Start: 10-17-2023 Office outpatient vi sit 15 minutes Kelechi Ball [facility] Start: 09-22-2023 End: 09-22-2023 ambulatory Kelechi Ball Other [employer] Other Start: 09-22-2023 Office outpatient vi sit 15 minutes Kelechi Ball [facility] Start: 09-22-2023 End: 09-22-2023 Patient encounter procedure [facility] Work Phone: Start: 09-08-2023 End: 09-08-2023 ambulatory Kelechi Ball Other [employer] Other Start: 09-08-2023 Telephone encounter Kelechi Ball [facility] Start: 08-28-2023 End: 08-28-2023 ambulatory Kelechi Ball Other [employer] Other Start: 08-28-2023 Telephone encounter Kelechi Ball [facility] Start: 08-26-2023 End: 08-26-2023 ambulatory Kelechi Ball Other [employer] Other Start: 08-26-2023 Telephone encounter Kelechi Ball [facility] Start: 08-22-2023 End: 08-22-2023 ambulatory Kelechi Ball Other [employer] Other Start: 08-22-2023 Encounter for genera l adult medical examination without abnormal findings Kelechi Ball [facility] Start: 08-22-2023 Periodic preventive med est patient 40-64yrs Kelechi Galvan [facility] Start: 08-22-2023 End: 08-22-2023 Patient encounter procedure [facility] Work Phone: Start: 05-26-2023 End: 05-26-2023 ambulatory Angélica Hue Other [employer] Other Start: 05-26-2023 Office outpatient vi sit 15 minutes Angélicaelvia Swann [facility] Start: 04-18-2023 End: 04-18-2023 ambulatory Kelechi Galvan Other [employer] Other Start: 04-18-2023 Office outpatient vi sit 15 minutes Kelechi Galvan [facility] Start: 02-28-2023 End: 02-28-2023 ambulatory Kelechi Galvan Other [employer] Other Start: 02-28-2023 Office outpatient vi sit 15 minutes Kelechi Galvan [facility] Start: 01-19-2023 End: 01-19-2023 ambulatory Kelechi Galvan Other [employer] Other Start: 01-19-2023 Telephone encounter Kelechi Galvan [facility] Start: 01-16-2023 End: 01-16-2023 ambulatory Kelechi Galvan Other [employer] Other Start: 01-16-2023 Office outpatient vi sit 25 minutes Kelechi Galvan [facility] Start: 01-11-2023 End: 01-11-2023 Patient encounter procedure [employer] Angélica Swann Work Phone: [facility] Work Phone: Start: 01-11-2023 End: 01-11-2023 ambulatory Angélica Swann [facility] Work Phone: Start: 01-11-2023 Office outpatient vi sit 15 minutes Angélicaelvia Swann [facility] Start: 01-11-2023 Telephone encounter Kelechi Galvan [facility] Start: 01-09-2023 Encounter for genera l adult medical examination without abnormal findings DR KELECHI GALVAN [facility] Start: 01-05-2023 End: 01-06-[address] KELECHI GALVAN Facility:[facility] Start: 01-05-2023 End: 01-06-2023 Encounter for general adult medical examination without abnormal findings DR KELECHI GALVAN Facility:[facility] Start: 01-03-2023 End: 01-03-2023 ambulatory Kelechi Galvan Other [employer] Other Start: 01-03-2023 Encounter for genera l adult medical examination without abnormal findings Kelechi Galvan [facility] Start: 01-03-2023 Patient encounter status Conrad omer [facility] Other [employer] Other Start: 01-03-2023 Telephone encounter Kelechi Galvan [facility] Start: 12-21-2022 End: 12-22-[address] KELECHI GALVAN Facility:[facility] Start: 12-08-2022 End: 12-09-[address] KELECHI GALVAN Facility:[facility] Start: 11-23-2022 End: 11-23-2022 ambulatory Kelechi Galvan Other [employer] Other Start: 11-23-2022 Telephone encounter Kelechi Galvan [facility] Start: 11-16-2022 End: 11-17-[address] KELECHI GALVAN Facility:[facility] Start: 11-09-2022 End: 11-24-[address] EKLECHI GALVAN Facility:[facility] Start: 11-03-2022 End: 11-04-[address] KELECHI GALVAN Facility:[facility] Start: 10-27-2022 End: 10-28-[address] KELECHI GALVAN [employer] Other Start: 10-27-2022 Telephone encounter Kelechi Galvan [facility] Start: 10-18-2022 End: 10-18-2022 ambulatory Kelechi Galvan Other [employer] Other Start: 10-18-2022 Office outpatient vi sit 25 minutes Kelechi Galvan [facility] Start: 10-07-2022 End: 10-07-2022 ambulatory Kelechi Galvan Other [employer] Other Start: 10-07-2022 Telephone encounter Kelechi Galvan [facility] Start: 08-26-2022 Adult health examination Conrad Galvan Other [employer] Other Start: 07-11-2022 End: 07-12-[address] KELECHI GALVAN Facility:[facility] Start: 04-07-2022 End: 04-08-[address] DEANN ELIAS . Facility:[facility] Start: 07-28-2019 Pre-procedure evalua tion check Kelechi Galvan Other [employer] Other Start: 07-17-2018 Gynecological examination normal Kelechi Galvan Other [employer] Other Procedures Date Procedure Procedure Detail Performing Clinician Start: 01-11-2023 Plain X-ray of right hand [employer] Angélica Swann Work Phone: Start: 01-18-2019 Preoperative cardiov ascular examination Kelechi Galvan Other End: 10-22-2018 Contraception care education Kelechi Galvan Other Depression screening Chuy Galvan Other Ligation of fallopian tube B enavelino Galvan Other Screening for malign ant neoplasm of breast Kelechi Galvan Other Plan of Treatment Date Care Activity Detail Author Start: 08-07-2024 End: 08-07-2024 Patient encounter procedure 08/07/2024 1:30 PM EST Office Visit [facility] [address] [facility] [place] [address] Antione Madera DO [address] [place] [id number] Ar[address] [facility] Comment on above: Arrived Start: 03-09-2023 ambulatory Ambulatory Facility:H 1 Payers Date Payer Category Payer Unknown 2023 Self-pay 2021 Private Health Insurance [facility] MEDICAID [id number] 1974 Unknown [id number] [id number]. 593 1974 Unknown [id number] [id number]. 593 1974 Unknown [id number] [id number]. 593 1974 Unknown [id number] 2.16840.1.342354.3.579.2. 593 1974 Unknown [id number] 2.840.1.750618.3.579.2. 593 1974 Unknown [id number] .[id number]. 593 1974 Unknown [id number] [id number]. 593 1974 Unknown [id number] 2.16.840.1.498020.3.579.2. 593 1974 Unknown [id number] [id number]. 593 1974 Unknown [id number] 2.16840.1.956989.3.579.2. 593 1974 Unknown [id number] 2.16840.1.824146.3.579.2. 593 1974 Unknown [id number] 2.16.840.1.880120.3.579.2. 196 1974 Unknown [id number] 2.16.840.1.154053.3.579.2. 1259 1959 Unknown [id number] [id number] 1959 Unknown [id number] Medicaid [employer] [employer] [id number] Unknown [id number] [id number]. 531 Social History Date Type Detail Facility Unknown if ever smoked [employer] Other Start: 08-07-2024 Sex Assigned At [facility] Other Start: 1975 Sex Assigned At Female [facility] Start: 05-16-2018 End: 05-16-2018 Tobacco smoking status [facility] Never smoked tobacco (finding) [facility] Start: 01-27-2024 End: 08-07-2024 Tobacco smoking status [facility] Ex-smoker (finding) [facility] Start: 07-22-2024 Sex Female (finding) [facility] Tobacco smoking stat us [facility] Tobacco smoking consumption unknown [facility] Start: 1975 Sex assigned at Not on file [facility] Start: 09-11-1988 End: 09-11-2003 History of tobacco use Current smoker [facility] Start: 09-11-1988 End: 09-11-2003 History of tobacco use Cigarette Smoker [facility] Start: 08-07-2024 Cigarettes smoked current (pack per day) - Reported 1.5 [facility] Start: 08-07-2024 Tobacco use and exposure Smokeless tobacco non-user [facility] Start: 08-07-2024 Alcoholic beverage intake Lifetime non-drinker (finding) [facility] Medical Equipment Procedure Code Equipment Code Equipment Origin al Text Equipment Identifier Dates Blood Sugar Diagnostic (Snoballuch Ultra Test) strip Start: 06-10-2024 Blood Sugar Diagnostic (Onetouch Ultra Test) strip Start: 06-10-2024 End: 06-10-2024 Blood Sugar Diagnostic (Onetouch Ultra Test) strip Start: 06-10-2024 Blood Sugar Diagnostic (Onetouch Ultra Test) strip Start: 06-10-2024 End: 06-10-2024 1 each by Other route if needed. Start: 04-29-2023 Clinical Notes 05-31-2011 to 08-07-2024 Antione Madera, DO - 08/07/2024 1:30 PM EST Note Date & Type Note Facility 08-07-2024 History of Presen t illness Narrative Chief Complaint Patient presents with Sleep Apnea Subjective Jing is here today for a yearly follow up from the sleep clinic. She was last seen on 06/14/2023. She states she is doing well with her machine. She states she cannot go to sleep without it. She feels rested in the mornings. She denies any issues since switching to her new mask. That seemed to help a lot. She had some anxiety and depression med added. She stopped some of the diabetic meds. She has lost some weight. She had lost about 70 pounds but gained a little back. She was working hard on diet and exercise. Past Medical History: Diagnosis Date Diabetes (CMS/HCC) Past Surgical History: Procedure Laterality Date ENDOMETRIAL ABLATION No family history on file. Social History Tobacco Use Smoking status: Former Current packs/day: 0.00 Average packs/day: 1.5 packs/day for 15.0 years (22.5 ttl pk-yrs) Types: Cigarettes Start date: 09/11/1988 Quit date: 09/11/2003 Years since quittin.9 Smokeless tobacco: Never Substance Use Topics Alcohol use: Never Allergies: Penicillins General: No fever or chills HEENT: No nasal congestion or runny nose Pulmonary: No shortness of breath or cough Cardiovascular: No chest pain or palpitations GI: No nausea or vomiting : No dysuria or hematuria Musculoskeletal: No new aches or pains or muscle weakness Infectious: no recurrent fevers or infections Dermatologic: No rashes or skin lesions Neurologic: No new headaches or dizziness Vitals: 08/07/24 1326 BP: 118/74 Pulse: 70 SpO2: 97% Body mass index is 45.43 kg/m . weight: 273 lb Neurologic exam: General: obesity, cooperative, pleasant Mental status: Awake, alert to person, place and time. Recent and remote memory are intact. Attention and concentration are normal. Fund of knowledge is appropriate for level of education. HEENT: NC/AT Cranial nerves: CN II: Visual laughlin full to confrontation. No loss of vision CN III, IV, : pupils equal round and reactive to light. Extraocular movements intact. No ptosis present. CN V: Facial sensation is normal. CN VII: Full and symmetric facial movement. CN VIII: Hearing is normal CN IX and X: Palate elevates symmetrically. CN XI: Shoulder shrug is normal bilaterally. CN XII: Tongue is midline without atrophy or fasciculation. Speech: Clear and fluent no aphasia or dysarthria Pronator drift: Negative bilateral upper extremity Coordination: Intact, no signs of dysmetria Good finger to nose and rapid alternating movements Sensory: Sensation is intact to light, temperature and vibratory touch throughout four extremities. Motor: LUE 5/5 RUE 5/5 LLE 5/5 RLE 5/5 Tone: Physiologic, no tremor, bradykinesia or rigidity DTR: Bilateral Biceps 2/4 Bilateral BR 2/4 Bilateral Patellar 2/4 No spasticity Gait: Normal to casual gait Romberg's Negative Review and summary of old records: Assessment/Plan Diagnoses and all orders for this visit: REBA (obstructive sleep apnea) Hypoxia Hypersomnia Obesity due to excess calories, unspecified class, unspecified whether serious comorbidity present Snoring 48-year-old female with severe obstructive sleep apnea with hypoxia leading to daytime hypersomnolence and snoring. She is compliant with her machine and this is controlling her symptoms and overall she is doing very well with that. She changed mass at the last visit and that has worked well for her. She is not having the leak she was having before and is able to sleep better. Overall she is compliant using the mask 97 percent of the time greater than 4 hours with an average nightly usage of 7 hours and 57 minutes and residual AHI of 0.3. Her [place] Sleepiness scale is a 3. She does have underlying obesity but is trying to work hard with diet exercise and weight loss. She lost about 70 lb but gained a litte bit back and knows she needs to get back on her regular program as she was doing very well. Plan Compliance data was reviewed with her and she is compliant [place] Sleepiness scale is 3 Continue use the CPAP machine whenever sleeping Get back on the diet and exercise regimen The patient was counseled on the need for aggressive diet, exercise, and weight loss. The patient was counseled on proper sleep hygiene and adequate hours of sleep. The patient was counseled on the risks of stroke, MA, and sudden with REBA, along with the need for compliance with the CPAP/BiPAP treatment. The diagnosis was all discussed with the patient. All questions were answered and they agreed with the treatment plan. Patient will call if there are any new issues or questions. Pt has been fully educated on their diagnosis, treatment options, follow up plan, and return instructions Return to clinic: 1 year documented in this encounter [facility] 06-21-2024 Evaluation note Diagnosis Onset Date Resolution Carpal tunnel syndrome of right wrist acute June 21 11:38am Insomnia acute June 21, 2024 11:38am Major depression acute June 21, 2024 11:38am Panic attack acute June 11:38am Insomnia acute July 22, 2024 10:19am Major depression acute July 22, 2024 10:19am Panic attack acute July 10:19am Primary hypertension acute [facility] 2023 10:19am [facility] Work Phone: 1(230) 474-546802-09-2024 Evaluation note* Encounter Date Diagnosis Assessment Notes Treatment Notes Treatment Clinical Notes Oct, Morbid (severe) obesity due to excess calories (ICD-10 - E66.01) [facility] [employer] Other 02-06-2024 Evaluation note* Encounter Date Diagnosis [...] index [BMI] 50.0-59.9, adult (ICD-10 - Z68.43) [facility] [employer] [facility] Other 01-12-2024 Evaluation note* Encounter Date Diagnosis [...] to Adipex - Rx sent ot [facility] 12 Sep, 2023 Body mass index [BMI] 50.0-59.9, adult (ICD-10 - Z68.43) [facility] [employer] [facility] Other 12-29-2023 Evaluation note* Encounter Date Diagnosis Assessment Notes Treatment Notes Treatment Clinical Notes Aug, Prolactinoma (ICD-10 - D35.2) MRI < 10mm, prolactin 80 - 2022 [facility] [employer] [facility] Other 12-16-2023 Evaluation note* Encounter Date Diagnosis Assessment Notes Treatment Notes Treatment Clinical Notes Aug, Hyperprolactinemia (ICD-10 - E22.1) [facility] [employer] [facility] Other 12-12-2023 Evaluation note* Encounter Date Diagnosis [...] use, the patient reduces the risk for MA, CVA, HTN, cardiac dysrhythmias and sudden cardiac [...] patient on monthly SBE and yearly mammograms. [employer] [employer] Other 09-15-2023 Evaluation note* Encounter Date Diagnosis [...] thoracic region, initial encounter (ICD-10 - S29.019A) [employer] Other 08-08-2023 Evaluation note* Encounter Date Diagnosis Assessment Notes Treatment Notes Treatment Clinical Notes Apr, Sharmin-menopausal (ICD-10 - N95.1) Recommend scheduling appt w/ Abrasive Sawyer. Apr, Primary hypertension (ICD-10 - I10) This [...] use, the patient reduces the risk for MA, CVA, HTN, cardiac dysrhythmias and sudden cardiac deaths.The patient is also aware of the association between REBA and morning headaches, daytime somnolence, fatigue and obesity, which also has been improved with continued use.The patient is compliant with treatment, wearing the equipment every night for greater than 4 hours.The patient is instructed to continue use of the CPAP for REBA treatment. [employer] Other 06-20-2023 Evaluation note* Encounter Date Diagnosis Assessment Notes Treatment Notes Treatment Clinical Notes Feb, Seborrheic dermatitis of scalp (ICD-10 - L21.9) Keep clean, avoid scratching Stop using Mupirocin Initiate topical steroid ointment Feb, Primary hypertension (ICD-10 - I10) This patient is instructed to consume a healthy, low-fat, low-salt diet. They are also encouraged to continue exercise to achieve/maintain a normal BMI. [employer] Other 05-11-2023 Evaluation note* Encounter Date Diagnosis Assessment Notes Treatment Notes Treatment Clinical Notes January, Type 2 diabetes mellitus with hyperglycemia, without long-term current use of insulin (ICD-10 - E11.65) [employer] Other 05-08-2023 Evaluation note* Encounter Date Diagnosis [...] use, the patient reduces the risk for MA, CVA, HTN, cardiac dysrhythmias and sudden cardiac [...] visual defects. January, Hyperprolactinemia (ICD-10 - E22.1) [employer] Other 05-03-2023 Evaluation note* Encounter Date Diagnosis Assessment Notes Treatment Notes Treatment Clinical Notes January, REBA (obstructive sleep apnea) (ICD-10 - G47.33) AHI 104 w/ Psat 68%, BiPAP 21/17, full facial mask [employer] Other 05-03-2023 Evaluation note* Encounter Date Diagnosis [...] no improvement in 2 to 3 days [employer] Other 04-25-2023 Evaluation note* Encounter Date Diagnosis Assessment Notes Treatment Notes Treatment Clinical Notes Dec, Type 2 diabetes mellitus with hyperglycemia, without long-term current use of insulin (ICD-10 - E11.65) Dec, Primary hypertension (ICD-10 - I10) Dec, Wellness examination (ICD-10 - Z00.00) [employer] Other 03-30-2023 NoteCONSULTATION CONSULTATION DATE: 12/08/2022 TO: [...] this point for her residual pain symptoms.[id number] Evaluation note* Encounter Date Diagnosis Assessment Notes Treatment Notes Treatment Clinical Notes Nov, REBA (obstructive sleep apnea) (ICD-10 - G47.33) AHI 101 w/ Psat 79% [employer] Other 03-15-2023 Evaluation note* Encounter Date Diagnosis Assessment Notes Treatment Notes Treatment Clinical Notes Nov, REBA (obstructive sleep apnea) (ICD-10 - G47.33) AHI 104 w/ Psat 68% [employer] Other 02-23-2023 NotePAIN MANAGEMENT CONSULTATION CONSULTATION DATE: [...] four weeks' time or sooner if needed.[facility] 11-03-2022 NotePAIN MANAGEMENT CONSULTATION CONSULTATION [...] on his response to change in medication.[facility] 10-18-2022 Evaluation note* Encounter Date [...] (ICD-10 - R29.818) Referral for sleep study [employer] Other 07-28-2022 NoteCONSULTATION CONSULTATION DATE: 04/07/2022 HISTORY [...] Patient states understanding and all questions answered.[facility] [id number] History general Narrative - Reported* Type Description Date Medical History hypertension Medical History back pain Medical History degenerative disc disease Medical History Prolactinoma Medical History asthma Surgical History C section 05/31/2011 Surgical History IVF 12/01/2008 Surgical History hysterectomy laps assisted -2 007 Surgical History right foot sx (planter) Hospitalization History see above Hospitalization History blood transfusion 09/2014 [employer] Other Chief complaint+Reason for visit Narrative* Chief Complaint COVID+ Amb Documentation 3 month follow up Reason for Visit COVID-19 Lumbar spondylosis REBA (obstructive sleep apnea) Primary hypertension Type 2 diabetes mellitus with hyperglycemia [facility] Work Phone: evaluation noteNo InformationN[facility] [employer] Other Evaluation noteNo assessment information available [facility] Work Phone: Evaluation note* Diagnosis Onset Date Resolution Status Type 2 diabetes mellitus with hyperglycemia acute COVID-19 noneactive [facility] Work Phone: Evaluation note* Diagnosis Onset Date Resolution Status COVID-19 noneactive Lumbar spondylosis acute REBA (obstructive sleep apnea) acute Primary hypertension acute Type 2 diabetes mellitus with hyperglycemia acute [facility] Work Phone: Evaluation note* Diagnosis Onset Date Resolution Status Obesity acute Primary hypertension acute Type 2 diabetes mellitus with hyperglycemia acute [facility] Work Phone: Evaluation note* Diagnosis Onset Date Resolution Status Right otitis media with effusion acute Obesity acute Primary hypertension acute Type 2 diabetes mellitus with hyperglycemia acute [facility] Work Phone: Evaluation note* Diagnosis Onset Date Resolution Status Obesity acute REBA (obstructive sleep apnea) acute Palpitation acute Primary hypertension acute Type 2 diabetes mellitus with hyperglycemia acute [facility] Work Phone: Evaluation note* Diagnosis REBA (obstructive sleep apnea)- Primary Obstructive sleep apnea (adult) (pediatric) Hypoxia Hypoxemia Hypersomnia Hypersomnia, unspecified Obesity due to excess calories, unspecified class, unspecified whether serious comorbidity present Snoring Other dyspnea and respiratory abnormality documented in this encounter [facility] Narrative - Reported* Type Description Date Medical History hypertension Medical History back pain Medical History degenerative disc disease Medical History Prolactinoma Medical History asthma Medical History REBA (obstructive sleep apnea) Surgical History C section 05/31/2011 Surgical History IVF 12/01/2008 Surgical History hysterectomy laps assisted 04-2 007 Surgical History right foot sx (planter) Hospitalization History see above Hospitalization History blood transfusion 09/2014 [facility] [employer] Other Summary Purpose Family History No Family History Records Found Relationship Condition Age at Onset Recorded Date/T milka father Unknown Malignant neoplasm Unknown Hypertension Unknown Heart disease Unknown Not Specified Malignant neoplasm Unknown History of malignant neoplasm of skin Unk nown Relationship Condition Age at Onset Recorded Date/T milka father Unknown Malignant neoplasm Unknown Hypertension Unknown Heart disease Unknown mother Malignant neoplasm Unknown History of malignant neoplasm [...] hypertension Type 2 diabetes mellitus with hyperglycemia Chief Complaint Right ear pain 3 month f/u Reason for Visit Right otitis media w ith effusion Obesity Primary hypertension Type 2 diabetes mellitus with hyperglycemia Chief Complaint 3 month f/u Meds not working/[place] Reason for Visit Obesity REBA (obstructive sleep apnea) Palpitation Primary hypertension Type 2 diabetes mellitus with hyperglycemia Chief Complaint Admit Date Meds not working/[place] June 212023 11:38am medication discussion July 22 10:19am Reason for Visit Admit Date Carpal tunnel syndrome of right wrist Oc tober 2023 11:38am Insomnia June 21, 2024 1 1:38am Major depression June 21, 2024 1 1:38am Panic attack June 21, 2024 1 1:38am Insomnia July 22, 2024 10:19am Major depression July 22, 2024 10:19am Panic attack July 22, 2024 10:19am Primary hypertension July 22, 2024 10:19am Additional Source Comments REASON FOR VISIT (unrecogniz ed section and content) Reason Comments Sleep Apnea INFORMATION SOURCE (unrecogn ized section and content) DATE CREATED AUTHOR 01/11/2023 Rosanna ro DATE CREATED AUTHOR AUTHOR'S ORGANIZ ATION 01/12/2023 [facility] DATE CREATED AUTHOR AUTHOR'S ORGANIZ ATION 01/01/2024 [facility] DATE CREATED AUTHOR AUTHOR'S ORGANIZ ATION 08/10/2024 [facility] EPIC Care Teams (unrecognized sec tion and content) [...] Care Provide r, Attending Provider Active Start: April 16, 2024 End: April 16, 2024 Team Status: Active Member Role Status Dates Kelechi Galvan DO Primary Care Provider Active Start: November 20, 2023 Sheela Garrett LPN Attending Provider Active S tart: November 20, 2023 Team Status: Inactive Member Role Status Dates Kelechi Galvan DO Primary Care Provide r, Attending Provider Active Start: January 15, 2024 End: January 15, 2024 Team Status: Inactive Member Role Status Dates ELIAS LenzC Attending Provider Active Team Status: Inactive Member Role Status Dates Kelechi Galvan DO Attending Provider Active Sta rt: August 22, 2023 End: August 22, 2023 Team Status: Inactive Member Role Status Dates Kelechi Galvan DO Attending Provider Active Sta rt: September 22, 2023 End: September 22, 2023 Team Status: Inactive Member Role Status Alan Galvan DO Primary Care Provide r, Attending Provider Active Start: October 27, 2023 End: October 27, 2023 Team Status: Inactive Member Role Status Alan Galvan DO Primary Care Provide r, Attending Provider Active Start: June 21, 2024 End: June 21, 2024 Team Status: Inactive Member Role Status Dates Kelechi Galvan DO Primary Care Provide r, Attending Provider Active Start: July 22, 2024 End: July 22, 2024 Wallpaperer Helper Relationship Specialty Start Date End Date Kelechi Galvan MD [address] [place] [id number] PCP - General Internal Medicine 05/25/23 Wallpaperer Helper Relationship Specialty Start Date End Date Kelechi Galvan MD [address] [place] [id number] PCP - General Internal Medicine 05/25/23 Goals (unrecognized section and content) Goals may [...] BE BASED ON THE PRIMARY CLINICAL RECORDS. [employer] [facility]. provides no warranty or guarantee of the accuracy or completeness of information in this document.
--- NOTE | 2024-10-09 07:44 | MM_ITS ---
Patient Name: ELISA SANTOS MR#: [id number] : 1975 Exam Date: 10/09/2024 Ordering Doctor: DR Kelechi Galvan D.O. RADIOLOGY REPORT PROCEDURE: MM TOMOSYNTHESIS SCREENING BI COMPARISON: MM TOMOSYNTHESIS SCREENING BI, 08/24/2023. MG MAMM SCREEN 3D JANE CAD, 07/11/2022. MG MAMM JANE SCRN W CAD DIG, 01/02/2015. INDICATIONS: Screening Calculator Name NCI Breast Cancer Risk Assessment Tool 5 Year Breast Cancer Risk 1.10% Lifetime Breast Cancer Risk 11.00% Personal Breast Cancer No Personal Ovarian Cancer No Treatments None Family Cancers Grandmother-maternal with breast cancer at age ~53; Aunt-maternal with breast cancer at age ~38; Aunt-maternal with breast cancer at age ~45; Aunt-maternal with ovarian cancer at age ~40; Aunt-maternal with bladder cancer at age ~45; Father with bladder cancer at age ~52. LOCATION: [facility] BREAST COMPOSITION: There are scattered areas of fibroglandular density. FINDINGS: DIAGNOSTIC CATEGORY 2--BENIGN FINDING: RIGHT BREAST: No significant suspicious finding. Scattered benign-appearing lymph nodes are present. No significant change has occurred. LEFT BREAST: No significant suspicious finding. Scattered benign-appearing lymph nodes are present. No significant change has occurred. RECOMMENDATIONS: ROUTINE MAMMOGRAM AND CLINICAL EVALUATION IN 12 MONTHS. PLEASE NOTE: A NORMAL MAMMOGRAM DOES NOT EXCLUDE THE POSSIBILITY OF BREAST CANCER. A CLINICALLY SUSPICIOUS PALPABLE LUMP SHOULD BE BIOPSIED. Dictated by: Jim Faust M.D. on 10/10/2024 at 15:31 Approved by: Jim Faust M.D. on 10/10/2024 at 15:35
[2024-10-09 07:58] LABS: Basophils Absolute Auto 0.1 10^3/uL (0.0-0.1); Basophils Percent Auto 0.7 % (0.2-2.0); Eosinophils Absolute Auto 0.3 10^3/uL (0.0-0.7); Eosinophils Percent Auto 3.1 % (0.9-7.0); Hemoglobin 14.5 g/dL (12.0-16.0); Immature Granulocytes Abs Auto 0.05 10^3/uL (0.00-0.03); Immature Granulocytes Pct Auto 0.5 % (0.0-0.5); Lymphocytes Absolute Auto 2.5 10^3/uL (1.2-3.8); Lymphocytes Percent Auto 23.8 % (20.5-60.0); Mean Corpuscular HGB Conc 31.5 g/dL (29.9-35.2); Mean Corpuscular Hemoglobin 27.1 pg (26.7-34.0); Mean Corpuscular Volume 85.8 fL (81.0-99.0); Mean Platelet Volume 9.4 fL (9.5-13.5); Monocytes Percent Auto 9.5 % (1.7-12.0); Neutrophils Absolute Auto 6.6 10^3/uL (1.4-6.5); Neutrophils Percent Auto 62.4 % (43.0-75.0); Platelet Count 249 10^3/uL (150-450); Red Blood Count 5.36 10^6/uL (4.20-5.40); Red Cell Distribution Width 13.2 % (11.0-15.0); White Blood Count 10.6 10^3/uL (4.0-11.0)
[2024-10-09 08:01] LABS: Microalbum Creatinine Ratio Ur 11.2 mg/g (0.0-29.9); Microalbumin Urine Random 1.8 mg/dL (<=30.0)
[2024-10-09 08:04] LABS: Estimated Average Glucose 151 mg/dL; Glycohemoglobin A1C 6.9 % (4.5-6.2)
[2024-10-09 08:29] LABS: Alanine Aminotransferase 22 U/L (14-59); Albumin Level 3.9 g/dL (3.4-5.0); Alkaline Phosphatase 98 U/L (46-116); Anion Gap 13.7; Aspartate Amino Transferase 17 U/L (15-37); BUN Creatinine Ratio 13.1; Bilirubin Total 0.9 mg/dL (0.2-1.0); Calcium 9.6 mg/dL (8.5-10.1); Carbon Dioxide 27.6 mmol/L (21.0-32.0); Chloride 103 mmol/L (98-107); Chol HDL Ratio 2.3; Cholesterol 185 mg/dL (<=200); Estimated GFR (African America >60 (>=60 mL/min/1.73m^2); Estimated GFR (Non-African Ame >60 (>=60 mL/min/1.73m^2); Globulin 3.8 g/dL; Glucose 156 mg/dL (74-106); HDL Cholesterol 80 mg/dL (40-60); Potassium 4.3 mmol/L (3.5-5.1); Sodium 140 mmol/L (136-145); Thyroid Stimulating Hormone 4.409 uIU/mL (0.358-3.740); Total Protein 7.7 g/dL (6.4-8.2); Triglycerides 68 mg/dL (<=150); VLDL CHOLESTEROL 13.6 mg/dL
[2024-10-10 04:07] LABS: Prolactin 37.7 ng/mL (4.8-33.4)
== END 2024-10-09 07:34 | disposition home or self-care (01) ==
LOC: MAMMO 07:34
PROVIDERS: PCP Internal Medicine; Visit Provider Internal Medicine
DX: Z00.00 Encounter for general adult medical examination without abnormal findings (principal); D35.2 Benign neoplasm of pituitary gland; Z12.31 Encounter for screening mammogram for malignant neoplasm of breast; Z80.3 Family history of malignant neoplasm of breast; Z80.41 Family history of malignant neoplasm of ovary; Z80.52 Family history of malignant neoplasm of bladder
CPT/HCPCS: 36415; 77063; 77067; 80053; 80061; 82043; 82570; 83036; 84146; 84443; 85025

== ENCOUNTER 2024-10-31 14:53 | Outpatient (OUT) | payer OTHER, SELFPAY ==
--- NOTE | 2024-10-31 15:32 | P.CN_ITS ---
Consult Note: HPI Data of Consult Patient: known to practice within the last 3 years Requesting Physician: Jeny Manley NP Primary Care Provider: Kelechi Galvan DO Consult Narrative Reason for consult: acute left hip pain Narrative: Jing Grya a pleasant 48 year old female with longstanding hx of lumbar pain secondary to lumbar spondylosis presents for evaluation of acute left hip pain. Reports increased left hip pain over the last 2 weeks without injury or known cause. Pain 9/10 sharp burning in upper left buttock and hip. Pain increased with standing, walking, activity, getting into car. Pain improved with sitting and lying. has failed to benefit from motrin, tylenol, and tizanidine. went to urgent care with IM injection that was beneficial for 2 days. cc:: CC: Jeny Manley NP Review of Systems ROS Status of ROS 10 or more systems reviewed and unremark able except as noted in history and below Musculoskeletal Reports: back pain and joint pain PFSH PFSH Medical History In vitro fertilization ?Z31.83 - Encounter for assisted reproductive fertility procedure cycle (ICD- 10) Diabetes ?E11.9 - Type 2 diabetes mellitus without complications (ICD-10) HTN (hypertension) ?I10 - Essential (primary) hypertension (ICD-10) Surgical History History of dilation and curettage ?Z98.890 - Other specified postprocedural states (ICD-10) History of tubal ligation ?Z98.51 - Tubal ligation status (ICD-10) History of hysteroscopy ?Z98.890 - Other specified postprocedural states (ICD-10) Previous section ?Z98.891 - History of uterine scar from previous surgery (ICD-10) History of fasciotomy ?Z98.890 - Other specified postprocedural states (ICD-10) History of laparoscopy ?Z98.890 - Other specified postprocedural states (ICD-10) Meds Home Medications and Allergies Home Medications ?Medication ?Instructions ?Recorded ?Confirmed ?Type atenolol 50 mg tablet 50 mg PO DAILY 03/09/23 11/27/23 History dapagliflozin propanediol 5 mg 5 mg PO DAILY 03/09/23 11/27/23 History tablet (Farxiga) dulaglutide 4.5 mg/0.5 mL 4.5 mg subcut QWEEK 03/09/23 11/27/23 History subcutaneous pen injector (Trulicity) furosemide 20 mg tablet 20 mg PO DAILY 03/09/23 11/27/23 History lisinopril 5 mg tablet 5 mg PO DAILY 03/09/23 11/27/23 History metformin 1,000 mg tablet 1,000 mg PO BID 03/09/23 11/27/23 History naproxen 500 mg tablet 500 mg PO BID 03/09/23 11/27/23 History potassium chloride 10 mEq 10 meq PO DAILY 03/09/23 11/27/23 History tablet,extended release (Klor-Con) tizanidine 4 mg tablet (Zanaflex) 4 mg PO DAILY PRN spasm 03/09/23 11/27/23 History diazepam 10 mg tablet 10 mg PO 11/27/23 History tizanidine 4 mg capsule See Rx Instructions .Route 10/14/24 Rx .COMPLEX PRN muscle spasticity #90 caps Allergies Allergy/AdvReac Type Severity Reaction Status Date / Time Penicillins Allergy Rash Verified 11/27/23 08:08 Exam Constitutional Documenting provider has reviewed patient's vital signs: yes Common normals: no apparent distress, oriented x3, healthy appearing, alert and well nourished General appearance: cooperative HENMT Common normals: normocephalic, hearing grossly normal bilaterally and moist oral mucous membranes Head and scalp: normocephalic Eye Common normals: PERRL Pupil: PERRL Neck & C-Spine Common normals: full ROM General: normal visual inspection Chest Common normals: inspection of chest normal Respiratory Common normals: normal respiratory effort, no retractions and no use of accessory muscles Back & Pelvis Lumbar spine/lower back: pain with ROM, lumbar spinal tenderness, paraspinal muscle tenderness and straight leg raise positive left; no paraspinal muscle spasm Sacroiliac joints: SI joint(s) abnormal Other: increased pain and dysthesia over left superior gluteal nerve mildly positive left positive mateo(patricks), gaenslens, thigh thrust, marguerite alejandro test strength 5/5 in BLE, sensation intact BLE Neuro Common normals: oriented x3, CN's II-XII intact bilaterally, moves all extremities, no focal motor deficits, no sensory deficits noted and deep tendon reflexes 2+ bilaterally Sensorium/orientation: alert Motor exam: strength 5/5 throughout and no movement abnormalities noted Psych Common normals: mental status grossly normal, thought process normal, cooperative, affect normal, speech normal and activity/motor behavior normal Speech: normal speech Thought process: normal thought process Results Additional Findings Additional findings: If on a controlled substance or opioids, I have checked an [place] report on this patient and there are no aberrancies noted in the prescribing history.??If on a controlled substance or opioid a drug screen was completed and reviewed within the last year, and if there has not been a drug screen completed we ordered one today to monitor higher risk, state monitored pain medication use. As part of providing excellent, safe, comprehensive care, the following was completed at our patient's visit: 1. A medication reconciliation and review to ensure accurate knowledge of current/active medications, including asking our patients to inform us about any [id number] medications or herbal remedies/nutritional supplements/alternative remedies. 2. A review to specifically ensure our patients have had annual screening for screening for depression, screening for tobacco use, and screening for unhealthy alcohol use. For concerning screenings had a discussion with the patient, provided patient education, and recommended follow-up with primary care provider when appropriate. If patient noted with a risk of falling, they received education on strength, gait, and balance training to prevent future risk of falling. Portions of this note may have been carried over from the previous visit and updated as appropriate. Please note this office utilizes paper charting in addition to the electronic medical record. A list of current medications, vitals, and PMH is available there as the clinical staff outside of myself do not have access to [employer] charting during the clinic day operations. As part of providing quality comprehensive care the current medications, vitals, and PMH were reviewed in the paper chart. 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
== END 2024-10-31 14:54 | disposition home or self-care (01) ==
PROVIDERS: PCP Internal Medicine; Visit Provider Nurse Practitioner
DX: G57.92 Unspecified mononeuropathy of left lower limb (principal); M47.816 Spondylosis without myelopathy or radiculopathy, lumbar region
CPT/HCPCS: G0463

== ENCOUNTER 2024-12-04 07:38 | Outpatient (OUT) | payer BC, OTHER, SELFPAY ==
--- OUTSIDE RECORDS SUMMARY | 2024-12-04 07:49 | XMS_ITS | CCD ---
Author Organization [facility]ini[facility] Care Team Providers Care 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 Manager Name Role Phone Kelechi Galvan Unavailable COLE, DR CULVER Primary Care Unavailable LAKSHMIPATHY ., NARENDRANATH Admitting Bebe vailable LAKSHMIPATHY ., NARENDPAULA Consulting Bebe vailable LAKSHMIPATHY ., ERINN Attending Bebe vailable ELIAS ., DR DEANN Mcguire Attending Unavailable BALL, DR CULVER Primary Care Unavailable ELIAS ., DR DEANN Mcguire Admitting Unavailable HUNG ., RADHA Consulting Unavailable COLE, DR CULVER Primary Care [...] Penicillin G Drug Allergy pt doesn't remember [employer] Other (2 sources) Penicillins Drug allergy (disorder) 3 [facility] Rep[facility] (18 sources) Doxycycline Drug Allergy 4 Unknown, Unknown Reaction [facility] (2 sources) Penicillin Drug Allergy Unknown [employer] Other (9 sources) Penicillin G Benzathine & Proc Drug allergy 7 Unknown [employer] Other (2 sources) patient allergy list reviewed by nurse or physicia Propensity to adverse reactions 4 Comment:Done [employer] Other (2 sources) Allergies Reconciled Propensity to adverse reactions Unknown [employer] Other (7 sources) Penicillin G Benzathine Allergy to substance 4 Unknown Reaction [facility] Comment on above: Onset Date: 12/22/19 07 [...] End: 04-08-2024 take 1 tablet by mouth once daily Atenolol 50 mg tablet Discontinued 50 MG PO Daily October 27, 2023 12:00am April 08, 2024 8:59am Atenolol Not-Anuj ing/PRN Atenolol Not-Anuj ing Atenolol Active buPROPion (9 sources) Aminoketone Start: 08-06-2024 take 1 tablet by mouth once daily in the morning Bupropion Hcl 300 mg tablet extended release 24 hr Active 0 .ROUTE .COMPLEX August 06, 2024 9:05pm TAKE 1 TABLET BY MOUTH EVERY MORNING Start: 07-22-2024 buPROPion HCl (WELLBUTRIN PO) 07/22/2024 Active Start: 07-15-2024 End: 08-06-2024 take 1 tablet by mouth once daily in the morning Bupropion Hcl 300 mg tablet extended release 24 hr Discontinued 300 MG PO Every morning July 15, 2024 12:52pm August 06, 2024 9:06pm Start: 07-05-2024 End: 07-15-2024 take 2 tablets [...] 12:19pm cetirizine hydrochloride 10 mg oral tablet (18 sources) Histamine-1 Receptor Antagonist Start: 06-23-2024 take 1 tablet by mouth once daily Cetirizine 10 mg tablet Active 0 .ROUTE .COMPLEX June 23, 2024 11:17am TAKE 1 TABLET BY MOUTH EVERY DAY Start: 05-02-2023 End: 06-23-2024 take 1 tablet by mouth once daily Cetirizine 10 mg tablet Discontinued 10 MG PO Daily October 27, 2023 12:00am June 23, 2024 11:17am cyclobenzaprine hydrochloride 10 mg oral tablet (3 sources) Muscle Relaxant Start: 01-23-2023 End: 08-07-2024 take 1 tablet by mouth every twenty-four hours as needed cyclobenzaprine (Flexeril) 10 MG tablet Take 10 mg by mouth Daily as needed for muscle spasms. 01/23/2023 08/07/2024 Discontinued (Therapy completed) 0.5 ML dulaglutide [...] INJECT 4.5 MG SUBCUTANEOUSLY WEEKLY Active escitalopram 20 mg oral tablet (20 sources) [...] End: 07-15-2024 take 1 tablet by mouth once daily Escitalopram Oxalate 10 mg tablet Discontinued 10 MG PO Daily October 27, 2023 12:00am March 27, 2024 8:59am fluticasone propionate 0.05 mg/actuat metered dose nasal spray (5 sources) Corticosteroid Start: 08-18-2024 take 1 spray(s) nasal route once daily Fluticasone Propionate (Flonase Allergy Relief) 50 mcg/actuation spray,suspension Active 1 SPRAY INTRANASAL Daily August 18, 2024 12:00am administer into each nostril Start: 01-27-2024 End: 10-27-2024 take 2 spray(s) nasal route once daily Fluticasone Propionate (Flonase Allergy Relief) 50 mcg/actuation spray,suspension Discontinued 2 SPRAY INTRANASAL Daily January 26, 2024 11:00pm October 27, 2024 1:45pm administer 2 spray into each nostril furosemide 20 mg oral tablet (20 sources) Loop Diuretic Start: 04-05-2023 take 1 tablet by mouth once daily Furosemide 20 mg tablet Active 20 MG PO Daily October 27, 2023 12:00am Furosemide Activ e lifitegrast 50 mg/ml ophthalmic solution (3 sources) [...] End: 04-08-2024 take 1 tablet by mouth once daily Lisinopril 5 mg tablet Discontinued 5 MG PO Daily October 27, 2023 12:00am April 08, 2024 8:59am Lisinopril Not-T aking/PRN Lisinopril Not-T aking Lisinopril Activ e OneTouch Ultra - (8 sources) OneTouch Ultra - USE 1 STRIP TO CHECK HOME BLOOD SUGAR for 25 Active potassium 99 mg extended release oral tablet (14 sources) Start: 10-27-2023 take 1 mg by mouth once daily Potassium 99 mg tablet Active MG PO Daily October 27, 2023 12:00am Start: 10-27-2023 take 1 mg by mouth once daily Potassium Active MG PO Daily October 27, 2023 1:00am take 1 tablet by leora once daily [...] (20 sources) Central alpha-2 Adrenergic Agonist Start: 10-27-2024 take 2 tablets by mouth once daily at bedtime Tizanidine 4 mg tablet Active 8 MG PO Daily at bedtime October 27, 2024 1:50pm Start: 10-27-2023 End: 10-27-2024 take 1 tablet by mouth once daily at bedtime Tizanidine 4 mg tablet Discontinued 4 MG PO Daily at bedtime 90 90 August 23, 2024 8:56am October 27, 2024 1:50pm Start: 05-16-2023 take 1 tablet by leora [...] Sig (Original) baclofen 10 mg oral tablet (13 sources) gamma-Aminobutyri c Acid-ergic Agonist Start: 10-27-2023 [...] week Not-Taking/PRN cefdinir 300 mg oral capsule (6 sources) Cephalosporin Antibacterial Start: 08-18-20 End: 08-28-20 take 1 capsule by mouth twice daily Cefdinir 300 mg capsule Discontinued 300 MG PO Twice daily August 23, 2024 12:00am August 28, 2024 2:19pm Start: 01-27-2024 End: 04-16-2024 take 1 capsule by mouth every twelve hours Cefdinir 300 mg capsule Discontinued 300 MG PO Every 12 hours 30 06January 26, 2024 11:00pm April 16, 2024 7:34am dapagliflozin 5 mg oral tablet (20 sources) Sodium-Glucose Cotransporter 2 Inhibitor Start: 01-16-2023 End: 08-07-2024 take 1 tablet by mouth once daily Dapagliflozin Propanediol (Farxiga) 5 mg tablet Discontinued 5 MG PO Daily October 27, 2023 12:00am February 26, 2024 12:07pm Dexamethasone / Neomycin / Polymyxin B (20 sources) Aminoglycoside Antibacterial, Polymyxin-class Antibacterial, Corticosteroid Start: 09-13-2020 take 2 drop(s) into the eye(s) three times daily as needed Maxitrol 3.5-04930-2.1 2 drops into affected eye Ophthalmic Three times a day for 7 days Sep, Not-Taking/PRN Start: 09-13-2020 take 2 drop(s) into the eye(s) three times daily Maxitrol 3.5-26694-4.1 2 drops into affected eye Ophthalmic Three times a day for 7 days Sep, Not-Taking Start: 09-13-2020 take 2 drop(s) into the eye(s) three times daily Maxitrol 3.5-95430-3.1 2 drops into affected eye Ophthalmic Three times a day for 7 days Sep, Active Dulaglutide (Trulicity) 4.5 mg/0.5 mL pen injector (6 sources) Start: 10-27-2023 End: 10-27-2024 Dulaglutide (Trulicity) 4.5 mg/0.5 mL pen injector Discontinued 4.5 MG SUBCUT every week October 27, 2023 12:00am October 27, 2024 1:49pm Start: 10-27-2023 Dulaglutide (T rulicity) 4.5 mg/0.5 mL pen injector Active 4.5 MG SUBCUT every week October 27, 2023 12:00am Start: 10-27-2023 Dulaglutide (T rulicity) 4.5 mg/0.5 mL pen injector Active 4.5 MG SUBCUT every week October 27, 2023 1:00am hydrOXYzine hydrochloride 50 mg oral tablet (6 sources) Antihistamine Start: 06-27-2024 End: 10-27-2024 take 1 tablet by mouth once daily at bedtime as needed for anxiety Hydroxyzine Hcl 50 mg tablet Discontinued 50 MG PO Daily at bedtime as needed for anxiety 03 17June 27, 2024 11:42am October 27, 2024 1:49pm Start: 06-21-2024 End: 06-27-2024 take 1 tablet by mouth three times daily as needed for anxiety Hydroxyzine Hcl 25 mg tablet Discontinued 25 MG PO Three times daily as needed for anxiety June 20, 2024 11:00pm June 21, 2024 11:23am Ketorolac (20 sources) Nonsteroidal Anti-inflammatory Drug, Cyclooxygenase Inhibitor Start: 06-22-2019 Toradol per 15 mg Jun, 30 mg levoFLOXacin 750 mg oral tablet (1 source) Quinolone Antimicrobial Start: 08-28-2024 End: 10-27-2024 take 1 tablet by mouth once daily Levofloxacin 750 mg tablet Discontinued 750 MG PO Daily 7 August 28, 2024 12:00am October 27, 2024 1:45pm metFORMIN hydrochloride 1000 mg oral tablet (20 sources) Biguanide Start: 03-28-2024 End: 04-16-2024 take [...] 2023 12:00am March 28, 2024 7:45am Start: 08-09-2023 take 1 tablet by leora th every [...] (150 mg x 2)-100 mg tablets,dose pack (7 sources) Start: 10-27-2023 End: 12-20-2023 take 2 [...] Start: 10-27-2023 take 2 tablets by mo uth once, then take 1 tablet by mouth [...] Start: 10-23-2023 take 1 tablet by leora th once daily before breakfast Adipex-P 37.5 MG 1 tablet before breakfast Orally Once a day for 30 days Rx #3 Oct, Active Start: 09-22-2023 take 1 tablet by leora th once [...] to other specified organisms] Episodic Anxiety disorders (4 sources) Panic attack; 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: [Panic disorder [episodic paroxysmal anxiety]] 06-21-2024 Chronic Cardiac dysrhythmias (6 sources) Palpitations; 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: [Palpitations] Onset: 7 04-16-2024 [...] menstrual cycle] Onset: 7 Chronic Mood disorders (18 sources) Moderate major depression, single episode; 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: [Major depressive disorder, single episode, moderate] Chronic Mycoses (2 sources) Candidiasis; 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: [Candidiasis, unspecified] Episodic Nonmalignant breast conditions (17 sources) Large breast; 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: [Macromastia] Onset: 6 Episodic Other aftercare (2 sources) High risk drug monitoring status; 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] Episodic Other aftercare (2 sources) History and physical examination, follow-up; 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: [Encounter for follow-up examination after completed treatment for conditions other than malignant neoplasm] Episodic Other and unspecified benign neoplasm (20 sources) Prolactinoma; 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] 08-23-2024 Episodic Other and unspecified benign neoplasm (3 sources) Benign neoplasm of pituitary gland; 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] Episodic Other and unspecified benign neoplasm (2 [...] Onset: 2 Chronic Other nervous system disorders (2 sources) Carpal tunnel syndrome of right wrist; 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: [...] Chronic Other nutritional; endocrine; and metabolic disorders (8 sources) Obesity; 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: [Obesity, unspecified] 01-15-2024 Chronic [...] nutritional; endocrine; and metabolic disorders (4 sources) Obesity, unspecified; 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: [Obesity, unspecified] 01-15-2024 Chronic Other screening for suspected conditions (not mental disorders or infectious disease) (2 sources) Imaging result abnormal; 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: [Abnormal findings on diagnostic imaging of other specified body structures] Chronic Other screening for suspected conditions (not mental disorders or infectious disease) (6 sources) Encounter for screening mammogram for malignant neoplasm of breast; 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: [Urine test negative] Onset: 2 Resolved: 9 Episodic Other upper respiratory disease (2 sources) Allergic rhinitis; 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: [Allergic rhinitis, unspecified] Chronic Other upper respiratory infections (14 sources) Acute maxillary sinusitis; 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: [Acute maxillary sinusitis] Onset: 5 Episodic Otitis media and related conditions (7 sources) Eustachian tube salpingitis; 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: [Unspecified Eustachian salpingitis, right ear] Onset: 8 01-27-2024 Episodic Phlebitis; thrombophlebitis and thromboembolism (2 sources) Phlebitis and thrombophlebitis; 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: [Phlebitis and thrombophlebitis of unspecified site] Episodic Residual codes; unclassified (20 sources) Obstructive sleep apnea syndrome; 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: [Obstructive sleep apnea (adult) (pediatric)] 01-13-2024 Chronic Residual codes; unclassified (13 sources) Obstructive sleep apnea (adult) (pediatric); 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: [Obstructive sleep apnea (adult)(pediatric)] Onset: 3 Chronic Residual codes; unclassified (2 sources) Hypersomnia; 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: [Hypersomnia, unspecified] 08-07-2024 Chronic Residual codes; unclassified (2 sources) Postprocedural state finding; 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: [Other specified postprocedural states] Episodic Residual codes; unclassified (2 sources) Immunization refused ; 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: [Immunization not carried out because of patient refusal] Episodic Residual codes; unclassified (2 sources) Pain; 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: [Pain, unspecified] Episodic Residual codes; unclassified (2 sources) Insomnia; 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: [Insomnia, unspecified] 06-21-2024 Episodic Residual codes; unclassified (3 sources) Insomnia, unspecified; 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: [Insomnia, unspecified] 06-21-2024 [...] Test Name Value Interpretation Reference Range Facility Basophils Auto (Bld) [#/Vol] on 10-09-2024 Basophils (Bld) [#/Vol] Automated basophil count 0.0-0.1 [facility] Basophils/100 WBC Auto (Bld) on 10-09-2024 Basophils/100 WBC (Bld) Automated basophil % 0.2-2.0 [facility] Cholesterol in LDL Calc [Mas s/Vol]on 10-09-2024 Cholesterol in LDL [Mass/Vol] Cholesterol in LDL [Mass/volume] in Serum or Plasma by calculation [facility] Comment on above: <100 mg/dl [id number] 0-129 mg/dl NEAR OR ABOVE [id number] mg/dl BORDERLINE [id number] mg/dl HIGH>190 mg/dl VERY HIGH Cholesterol in VLDL Calc [Ma ss/Vol]on 10-09-2024 Cholesterol in VLDL [Mass/Vol] Cholesterol in VLDL [Mass/volume] in Serum or Plasma by calculation [facility] Eosinophils/100 WBC Auto (Bl d)on 10-09-2024 Eosinophils/100 WBC (Bld) Automated eosinophil % 0.9-7.0 [facility] Erythrocyte distribution wid th Auto (RBC) [Ratio]on 10-09-2024 Erythrocyte distribution width (RBC) [Ratio] Erythrocyte distribution width [Ratio] by Automated count 11.0-15.0 [facility] Estimated glomerular filtrat ion rate (GFR) non- Americanon 10-09-2024 GFR/1.73 sq M.predicted among non-blacks MDRD (S/P/Bld) [Vol rate/Area] Estimated glomerular filtration rate (GFR) non- >=60 mL/min/1.73m 2 [facility] Globulin Calc (S) [Mass/Vol] on 10-09-2024 Globulin (S) [Mass/Vol] Serum globulin measurement by calculation (mass/volume) [facility] Glucose mean value [Mass/vol ume] in Blood Estimated from glycated hemoglobinon 10-09-2024 Average glucose Estimated from glycated hemoglobin (Bld) [Mass/Vol] Glucose mean value [Mass/volume] in Blood Estimated from glycated hemoglobin [facility] Hematocrit Auto (Bld) [Volum e fraction]on 10-09-2024 Hematocrit (Bld) [Volume fraction] Hematocrit [Volume Fraction] of Blood by Automated count 36.0-48.0 [facility] Hemoglobin A1c percentageon 10-09-2024 HbA1c (Bld) [Mass fraction] Hemoglobin A1c percentage High 4.5-6.2 [facility] Comment on above: ADA RECOMMENDED LIMI T 4.0 - 6.0ADA THERAPEUTIC TARGET < 7.0ACTION SUGGESTED> 7.0 Hemoglobin [Mass/volume] in Bloodon 10-09-2024 Hemoglobin (Bld) [Mass/Vol] Hemoglobin [Mass/volume] in Blood 12.0-16.0 [facility] Laboratory - Chemistry and C hemistry - challengeon 10-09-2024 Albumin [Mass/Vol] 3.9 g/dL 3.4-5.0 [facility] ALP [Catalytic activity/Vol] 98 U/L 46-116 [facility] ALT [Catalytic activity/Vol] 22 U/L 14-59 [facility] AST [Catalytic activity/Vol] 17 U/L 15-37 [facility] Bilirubin [Mass/Vol] 0.9 mg/dL 0.2-1.0 [facility] Calcium [Mass/Vol] 9.6 mg/dL 8.5-10.1 [facility] Chloride [Moles/Vol] 103 mmol/L 98-107 [facility] Cholesterol [Mass/Vol] 185 mg/dL <=200 [facility] Cholesterol in HDL [Mass/Vol] 80 mg/dL High 40-60 [facility] Comment on above: > or =60 mg/dl - LOW CARDIOVASCULAR RISK<40 mg/dl - HIGH CARDIOVASCULAR RISK CO2 [Moles/Vol] 27.6 mmol/L 21.0-32.0 [facility] Creatinine [Mass/Vol] 0.84 mg/dL 0.55-1.02 [facility] GFR/1.73 sq M.predicted MDRD (S/P/Bld) [Vol rate/Area] mL/min/{1.73_m2} >=60 mL/min/1.73m 2 [facility] Glucose [Mass/Vol] 156 mg/dL High 74-106 [facility] Potassium [Moles/Vol] 4.3 mmol/L 3.5-5.1 [facility] Protein [Mass/Vol] 7.7 g/dL 6.4-8.2 [facility] Sodium [Moles/Vol] 140 mmol/L 136-145 [facility] Triglyceride [Mass/Vol] 68 mg/dL <=150 [facility] TSH Qn 4.409 m[IU]/L High 0.358-3.740 [facility] Urea nitrogen [Mass/Vol] 11.0 mg/dL 7.0-18.0 [facility] Urea nitrogen/Creatinine [Mass ratio] 13.1 mg/mg [facility] Laboratory - Hematology and Cell countson 10-09-2024 Immature granulocytes/100 WBC (Bld) 0.5 % 0.0-0.5 [facility] Leukocytes [#/volume] correc kendra for nucleated erythrocytes in Blood by Automated counon 10-09-2024 WBC corrected for nucl RBC Auto (Bld) [#/Vol] Leukocytes [#/volume] corrected for nucleated erythrocytes in Blood by Automated coun 4.0-11.0 [facility] Lymphocytes Auto (Bld) [#/Vo l]on 10-09-2024 Lymphocytes (Bld) [#/Vol] Lymphocytes [#/volume] in Blood by Automated count 1.2-3.8 [facility] Lymphocytes/100 WBC Auto (Bl d)on 10-09-2024 Lymphocytes/100 WBC (Bld) Lymphocytes/100 leukocytes in Blood by Automated count 20.5-60.0 [facility] MCH Auto (RBC) [Entitic mass ]on 10-09-2024 MCH (RBC) [Entitic mass] MCH [Entitic mass] by Automated count 26.7-34.0 [facility] MCHC Auto (RBC) [Mass/Vol]on 10-09-2024 MCHC (RBC) [Mass/Vol] MCHC [Mass/volume] by Automated count 29.9-35.2 [facility] MCV Auto (RBC) [Entitic vol] on 10-09-2024 MCV (RBC) [Entitic vol] MCV [Entitic volume] by Automated count 81.0-99.0 [facility] Microalbumin [Mass/volume] i n Urineon 10-09-2024 Albumin DL <= 20 mg/L (U) [Mass/Vol] Microalbumin [Mass/volume] in Urine <=30.0 [facility] Monocytes Auto (Bld) [#/Vol] on 10-09-2024 Monocytes (Bld) [#/Vol] Automated blood monocyte count High 0.3-0.8 [facility] Monocytes/100 WBC Auto (Bld) on 10-09-2024 Monocytes/100 WBC (Bld) Automated monocyte % 1.7-12.0 [facility] Neutrophils Auto (Bld) [#/Vo l]on 10-09-2024 Neutrophils (Bld) [#/Vol] Neutrophils [#/volume] in Blood by Automated count High 1.4-6.5 [facility] Neutrophils/100 WBC Auto (Bl d)on 10-09-2024 Neutrophils/100 WBC (Bld) Automated neutrophil % 43.0-75.0 [facility] No Panel Informationon 10-09 Eosinophils # (Auto) 0.3 10 3/uL 0.0-0.7 [facility] Immature Granulocyte # (Auto) 0.05 10 3/uL High 0.00-0.03 [facility] Prolactin 37.7 ng/mL Abnormal 4.8-33.4 [facility] Comment on above: Performed at: [facility] [address] [id number] Director: Joshua Jordan PhD, Phone: [phone] Urine Random Creatinine 160.10 mg/dL 20.00-300.00 [facility] Platelet mean volume Auto (B ld) [Entitic vol]on 10-09-2024 Platelet mean volume (Bld) [Entitic vol] Platelet mean volume [Entitic volume] in Blood by Automated count Low 9.5-13.5 [facility] Platelets Auto (Bld) [#/Vol] on 10-09-2024 Platelets (Bld) [#/Vol] Platelets [#/volume] in Blood by Automated count 150-450 [facility] RBC Auto (Bld) [#/Vol]on RBC (Bld) [#/Vol] Erythrocytes [#/volume] in Blood by Automated count 4.20-5.40 [facility] Serum or plasma albumin/glob ulin mass ratioon 10-09-2024 Albumin/Globulin [Mass ratio] Serum or plasma albumin/globulin mass ratio [facility] Serum or plasma anion gap de terminationon 10-09-2024 Anion gap [Moles/Vol] Serum or plasma anion gap determination [facility] Serum or plasma total choles terol/high density lipoprotein (HDL) cholesterol mass erika 10-09-2024 Cholesterol.total/Ch olesterol in HDL [Mass ratio] Serum or plasma total cholesterol/high density lipoprotein (HDL) cholesterol mass rat [facility] Comment on above: 3.3 - 4.4 LOW RISK4. 4 - 7.1 AVERAGE RISK7.1 - 11.0 MODERATE RISK>11.0 HIGH RISK Urine microalbumin/creatinin e mass ratioon 10-09-2024 Albumin/Creatinine DL <= 20 mg/L (U) [Mass ratio] Urine microalbumin/creatin ine mass ratio 0.0-29.9 [facility] Comment on above: NO MICROALBUMINURIA 0-29 MG/GCLINICAL MICROALBUMINURIA 30-300 MG/GMACROALBUMINURIA >300 MG/G XR hand RT min 3V*on 023 XR hand RT min 3V* [facility] [address] [address] XRay Report Signed Patient: Jing Gray MR#: [id number] 1 : 1975 Acct:[id number] Age/Sex: 47 / F ADM Date: 01/11/23 Loc: XDUCLY Room: Type: [facility] Attending Dr: Angélica FELIZ Copies to: [...] Blake Marino M.D.01/11/2023 6:08 PM Dictation Location: [place] [address] Transcribed By: [facility] 01/11/231807 Dictated By: Blake Marino DO 01/11/231806 Signed By: 01/11/231807 [facility] XR hand RT min 3V* [facility] [employer] Other XR hand RT min 3V* [facility] [employer] Other XR hand RT min 3V* [address] [place] [address] [employer] Other XR hand RT min 3V* [place] [address] [employer] Other XR hand RT min 3V* XRay Report [employer] Other XR hand RT min 3V* Signed [employer] Other XR hand RT min 3V* Patient: Jing Gray MR#: [id number] [employer] Other XR hand RT min 3V* 1 [employer] Other XR hand RT min 3V* : 1975 Acct:[id number] [employer] Other XR hand RT min 3V* Age/Sex: 47 / F ADM Date: 01/11/23 [employer] Other XR hand RT min 3V* Loc: XDUCLY Room: Type: REG CLI [employer] Other XR hand RT min 3V* Attending Dr: Angélica FELIZ [employer] Other XR hand RT min 3V* Copies to: TRINI Alvarado [employer] Other XR hand RT min 3V* Ordering Provider: TRINI Alvarado [employer] Other XR hand RT min 3V* Date of Service: 01/11/23 [employer] Other XR hand RT min 3V* XR/XR hand RT min 3V*: RIGHT HAND INJURY [employer] Other XR hand RT min 3V* 3 views right hand plain film [employer] Other XR hand RT min 3V* COMPARISON: None [employer] Other XR hand RT min 3V* HISTORY: Fourth and fifth metacarpal injury [employer] Other XR hand RT min 3V* ACUTE FINDINGS: None [employer] Other XR hand RT min 3V* DEGENERATIVE CHANGE: Unremarkable [employer] Other XR hand RT min 3V* SOFT TISSUE FINDINGS: Unremarkable [employer] Other XR hand RT min 3V* JOINT EFFUSION: None [employer] Other XR hand RT min 3V* POSTOP CHANGES: None [employer] Other XR hand RT min 3V* BONY MINERALIZATION: Adequate [employer] Other XR hand RT min 3V* XR/XR hand RT min 3V* [employer] Other XR hand RT min 3V* IMPRESSION: No acute findings [employer] Other XR hand RT min 3V* Impression dictated by: Blake Marino M.D.01/11/2023 6:08 PM [employer] Other XR hand RT min 3V* Dictation Location: [address] [employer] Other XR hand RT min 3V* Transcribed By: PWS 01/11/23 180 [employer] Other XR hand RT min 3V* Dictated By: Blake Marino DO 01/11/231806 [employer] Other XR hand RT min 3V* Signed By: [employer] Other XR hand RT min 3V* 01/11/[address] [place] [address] [employer] Other PROLACTINon 01-06-2023 Prolactin 34.5 ng/mL Critically high 4.8-23.3 [facility] Comment on above: Performed By: #### P ROLAC #### [facility] [address] [place] [address] [address] Digna Thomas CBC AUTO DIFFon 01-05-2023 BASO # 0.1 103/ul Normal 0.0-0.1 [facility] Comment on above: Performed By: #### C BC ####[facility] [address] [place] [address]Dr. Digna Thomas Basophils/100 WBC (Bld) 0.8 % Normal 0.2-2.0 [facility] Comment on above: Performed By: #### C BC ####[facility] [address] [place] [id number]. Digna Thomas EO # 0.5 103/ul Normal 0.0-0.7 [facility] Comment on above: Performed By: #### C BC ####[facility] [address] [place] [address]Dr. Digna Thomas Eosinophils/100 WBC (Bld) 5.0 % Normal 0.9-7.0 [facility] Comment on above: Performed By: #### C BC ####[facility] [address] [place] [address]Dr. Digna William Erythrocyte distribution width (RBC) [Ratio] 13.0 % Normal 11.0-15.0 [facility] Comment on above: Performed By: #### C BC ####[facility] [address] [place] [address]Dr. Digna Thoams Hematocrit (Bld) [Volume fraction] 44.6 % Normal 36.0-48.0 [facility] Comment on above: Performed By: #### C BC ####[facility] Anbovruqf[address] [place], [place] [address]Dr. Digna Thomas Hemoglobin (Bld) [Mass/Vol] 14.4 g/dL Normal 12.0-16.0 [facility] Comment on above: Performed By: #### C BC ####[facility] Feulbywxas[address] [place], [place] [address]Dr. Digna Thomas IG # 0.05 10e3/ul Critically high 0.00-0.03 [facility] Comment on above: Performed By: #### C BC ####[facility] [address]xqgas[address] [place], [place] [address]Dr. Digna Thomas IG % 0.5 % Normal 0.0-0.5 [facility] Comment on above: Performed By: #### C BC ####[facility] Mefyworvir[address] [place], [place] [address]Dr. Digna Thomas LYMPH # 2.3 103/ul Normal 1.2-3.8 [facility] Comment on above: Performed By: #### C BC ####[facility] [address] [place], [place] [address]Dr. Digna Thomas Lymphocytes/100 WBC (Bld) 23.0 % Normal 20.5-60.0 [facility] Comment on above: Performed By: #### C BC ####[facility] [address] [place], [place] [address]Dr. Digna Thomas MANUAL DIFF REQ NO Normal [facility] Comment on above: Performed By: #### C BC ####[facility] [address] [place] [address]DrNile Digna William MCH (RBC) [Entitic mass] 28.3 pg Normal 26.7-34.0 [facility] Comment on above: Performed By: #### C BC ####[facility] [address] [place] [address]DrNile Thomas MCHC (RBC) [Mass/Vol] 32.3 g/dL Normal 29.9-35.2 [facility] Comment on above: Performed By: #### C BC ####[facility] B[address]whj[address] [place] [address]DrNile Thomas MCV (RBC) [Entitic vol] 87.8 fL Normal 81.0-99.0 [facility] Comment on above: Performed By: #### C BC ####[facility] Jx[address]vnbh[address] [place], [place] [address]DrNile Thomas MONO # 0.8 103/ul Normal 0.3-0.8 [facility] Comment on above: Performed By: #### C BC ####[facility] Zxspcyyrvc[address] [place], [place] [address]DrNile Thomas Monocytes/100 WBC (Bld) 7.9 % Normal 1.7-12.0 [facility] Comment on above: Performed By: #### C BC ####[facility] U[address]ov[address] [place], [place] [address]DrNile Thomas NEUT # 6.3 103/ul Normal 1.4-6.5 [facility] Comment on above: Performed By: #### C BC ####[facility] [address]mst[address] [place], [place] [address]DrNile Thomas Neutrophils/100 WBC (Bld) 62.8 % Normal 43.0-75.0 [facility] Comment on above: Performed By: #### C BC ####[facility] [address]ud[address]udfe[address] [place], [place] [address]DrNile Thomas Platelet mean volume (Bld) [Entitic vol] 9.9 fL Normal 9.5-13.5 [facility] Comment on above: Performed By: #### C BC ####[facility] [address] [place] [id number]. Digna Thomas PLT 223 103/ul Normal 150-450 [facility] Comment on above: Performed By: #### C BC ####[facility] [address] [place] [id number]. Digna Thomas RBC 5.08 106/ul Normal 4.20-5.40 [facility] Comment on above: Performed By: #### C BC ####[facility] [address] [place] [id number]. Digna Thomas WBC 10.0 103/ul Normal 4.0-11.0 [facility] Comment on above: Performed By: #### C BC ####[facility] [address]or[address] [place] [id number]. Digna Thomas LIPID PROFILEon 01-05-2023 CHOL-HDL RATIO NORM SEE BELOW Normal [facility] Comment on above: Result Comment: 3.3 - 4.4 LOW RISK 4.4 - 7.1 AVERAGE RISK 7.1 - 11.0 MODERATE RISK >11.0 HIGH RISK Performed By: #### B MP, TSH, LIPID #### [facility] [address] [address] [address] Digna Thomas Cholesterol [Mass/Vol] 179 mg/dL Normal <=200 [facility] Comment on above: Performed By: #### B MP, TSH, LIPID #### [facility] [address] [address] [address] Digna Thomas Cholesterol in HDL [Mass/Vol] 55 mg/dL Normal 40-60 [facility] Comment on above: Performed By: #### B MP, TSH, LIPID #### [facility] [address] [address] [address] Digna Thomas Cholesterol in LDL [Mass/Vol] 103.8 mg/dL Normal [facility] Comment on above: Performed By: #### B MP, TSH, LIPID #### [facility] [address] [address] [address] Digna Thomas Cholesterol.total/Ch olesterol in HDL [Mass ratio] 3.3 {ratio} Normal [facility] Comment on above: Performed By: #### B MP, TSH, LIPID #### [facility] [address] [address] [address] Digna Thomas HDL NORMAL > or = 60 mg/dl - LOW CARDIOVASCULAR RISK <40 mg/dl - HIGH CARDIOVASCULAR RISK Normal [facility] Comment on above: Performed By: #### B MP, TSH, LIPID #### [facility] [address] [address] [address] Digna Thomas LDL CALC NORMAL SEE BELOW Normal [facility] Comment on above: Result Comment: <100 mg/dl OPTIMAL 100 - 129 mg/dl NEAR OR ABOVE OPTIMAL 130 - 159 mg/dl BORDERLINE HIGH 160 - 189 mg/dl HIGH >190 mg/dl VERY HIGH Performed By: #### B MP, TSH, LIPID #### [facility] [address] [address] [address] Digna Thomas Triglyceride [Mass/Vol] 101 mg/dL Normal <=150 [facility] Comment on above: Performed By: #### B MP, TSH, LIPID #### [facility] [address] [address] [address] Digna Thomas VLDL CALC 20.2 mg/dL Normal [facility] Comment on above: Performed By: #### B MP, TSH, LIPID #### [facility] [address] [place] [address] Dr. Digna Thomas PROF CHEM 8 (BAS METB)on Anion gap [Moles/Vol] 13.3 mmol/L Normal [facility] Comment on above: Performed By: #### B MP, TSH, LIPID #### [facility] [address] [address] [address] Digna Thomas Calcium [Mass/Vol] 9.4 mg/dL Normal 8.5-10.1 [facility] Comment on above: Performed By: #### B MP, TSH, LIPID #### [facility] [address] [address] [address] Digna Thomas Chloride [Moles/Vol] 104 mmol/L Normal 98-107 [facility] Comment on above: Performed By: #### B MP, TSH, LIPID #### [facility] [address] [address] [address] Digna Thomas CO2 [Moles/Vol] 27.1 mmol/L Normal 21.0-32.0 [facility] Comment on above: Performed By: #### B MP, TSH, LIPID #### [facility] [address] [address] [address] Digna Thomas Creatinine [Mass/Vol] 0.71 mg/dL Normal 0.55-1.02 [facility] Comment on above: Performed By: #### B MP, TSH, LIPID #### [facility] [address] [address] [address] Digna Thomas EGFR-AF FRENCH >60 Normal >=60 [facility] Comment on above: Performed By: #### B MP, TSH, LIPID #### [facility] [address] [place] [address] Dr. Digna Thomas EGFR-NON AF FRENCH >60 Normal >=60 [facility] Comment on above: Performed By: #### B MP, TSH, LIPID #### [facility] [address] [address] [address] Digna Thomas Glucose [Mass/Vol] 163 mg/dL Critically high 74-106 [facility] Comment on above: Performed By: #### B MP, TSH, LIPID #### [facility] [address] [address] [address] Digna Thomas Potassium [Moles/Vol] 4.4 mmol/L Normal 3.5-5.1 [facility] Comment on above: Performed By: #### B MP, TSH, LIPID #### [facility] [address] [address] [address] Digna Thomas Sodium [Moles/Vol] 140 mmol/L Normal 136-145 [facility] Comment on above: Performed By: #### B MP, TSH, LIPID #### [facility] [address] [address] [address] Digna Thomas Urea nitrogen [Mass/Vol] 15.0 mg/dL Normal 7.0-18.0 [facility] Comment on above: Performed By: #### B MP, TSH, LIPID #### [facility] [address] [address] [address] Digna Thomas Urea nitrogen/Creatinine [Mass ratio] 21.1 mg/mg Normal [facility] Comment on above: Performed By: #### B MP, TSH, LIPID #### [facility] [address] [address] [address] Digna Thomas TSHon 01-05-2023 TSH 3.955 uIU/mL Critically high 0.358-3.740 [facility] Comment on above: Performed By: #### B MP, TSH, LIPID #### [facility] [address] [address] [address] Digna Thomas XR CSPINE MIN 4 [...] by: FELIPE TRINH Date: 2022-11-04 08:02 Normal [facility] GLYCOHEMOGLOBIN A1Con 2022 ADA RECOMMENDATION SEE BELOW Normal [facility] Comment on above: Result Comment: ADA RECOMMENDED LIMIT 4.0 - 6.0 ADA THERAPEUTIC TARGET < 7.0 ACTION SUGGESTED > 7.0 Performed By: #### A 1C ####[facility] [address] [place] [id number]. Digna Thomas Glucose [Mass/Vol] 166 mg/dL Normal [facility] Comment on above: Performed By: #### A 1C ####[facility] [address] [place] [id number]. Digna Thomas HbA1c (Bld) [Mass fraction] 7.4 % Critically high 4.5-6.2 [facility] Comment on above: Performed By: #### A 1C ####[facility] [address] [place] [address]DrNile Thomas PROLACTINon 07-12-2022 Prolactin 48.0 ng/mL Critically high 4.8-23.3 [facility] Comment on above: Performed By: #### P ROLAC #### [facility] [address] [address] [address] Digna Thomas CBC AUTO DIFFon 07-11-2022 BASO # 0.1 103/ul Normal 0.0-0.1 [facility] Comment on above: Performed By: #### C BC ####[facility] [address] [place] [address]DrNile Thomas Basophils/100 WBC (Bld) 0.8 % Normal 0.2-2.0 [facility] Comment on above: Performed By: #### C BC ####[facility] [address] [place], [place] [address]DrNile Thomas EO # 0.7 103/ul Normal 0.0-0.7 [facility] Comment on above: Performed By: #### C BC ####[facility] [address] [place] [address]Dr. Digna Thoams Eosinophils/100 WBC (Bld) 5.8 % Normal 0.9-7.0 [facility] Comment on above: Performed By: #### C BC ####[facility] [address] [place] [address]DrNile Thomas Erythrocyte distribution width (RBC) [Ratio] 12.7 % Normal 11.0-15.0 [facility] Comment on above: Performed By: #### C BC ####[facility] [address]ps[address] [place] [address]DrNile Thomas Hematocrit (Bld) [Volume fraction] 45.4 % Normal 36.0-48.0 [facility] Comment on above: Performed By: #### C BC ####[facility] [address] [place] [id number]. Digna Thomas Hemoglobin (Bld) [Mass/Vol] 15.3 g/dL Normal 12.0-16.0 [facility] Comment on above: Performed By: #### C BC ####[facility] [address] [place] [id number]. Digna Thomas IG # 0.04 10e3/ul Critically high 0.00-0.03 [facility] Comment on above: Performed By: #### C BC ####[facility] [address] [place] [id number]. Digna Thomas IG % 0.3 % Normal 0.0-0.5 [facility] Comment on above: Performed By: #### C BC ####[facility] [address] [place] [address]Dr. Digna Thomas LYMPH # 3.3 103/ul Normal 1.2-3.8 [facility] Comment on above: Performed By: #### C BC ####[facility] [address] [place] [id number]. Digna Thomas Lymphocytes/100 WBC (Bld) 28.1 % Normal 20.5-60.0 [facility] Comment on above: Performed By: #### C BC ####[facility] [address] [place] [id number]. Digna Thomas MANUAL DIFF REQ NO Normal [facility] Comment on above: Performed By: #### C BC ####[facility] [address] [place] [id number]. Digna Thomas MCH (RBC) [Entitic mass] 29.2 pg Normal 26.7-34.0 [facility] Comment on above: Performed By: #### C BC ####[facility] [address]ht[address] [place] [id number]. Digna Thomas MCHC (RBC) [Mass/Vol] 33.7 g/dL Normal 29.9-35.2 [facility] Comment on above: Performed By: #### C BC ####[facility] [address] [place] [id number]. Digna Thomas MCV (RBC) [Entitic vol] 86.6 fL Normal 81.0-99.0 [facility] Comment on above: Performed By: #### C BC ####[facility] [address]dxbqcdn[address] [place] [address]Dr. Digna Thomas MONO # 0.8 103/ul Normal 0.3-0.8 [facility] Comment on above: Performed By: #### C BC ####[facility] Y[address]byvihek[address] [place] [id number]. Digna William Monocytes/100 WBC (Bld) 6.4 % Normal 1.7-12.0 [facility] Comment on above: Performed By: #### C BC ####[facility] [address] [place] [address]Dr. Digna Thomas NEUT # 6.9 103/ul Critically high 1.4-6.5 [facility] Comment on above: Performed By: #### C BC ####[facility] [address]qmtriqt[address] [place], [place] [address]Dr. Digna Thomas Neutrophils/100 WBC (Bld) 58.6 % Normal 43.0-75.0 [facility] Comment on above: Performed By: #### C BC ####[facility] M[address]wgkhnnd[address] [place], [place] [address]Dr. Digna Thomas Platelet mean volume (Bld) [Entitic vol] 10.0 fL Normal 9.5-13.5 [facility] Comment on above: Performed By: #### C BC ####[facility] [address]mxsbf[address] [place] [id number]. Digna William PLT 242 103/ul Normal 150-450 [facility] Comment on above: Performed By: #### C BC ####[facility] [address]offk[address] [place], [place] [address]Dr. Digna William RBC 5.24 106/ul Normal 4.20-5.40 [facility] Comment on above: Performed By: #### C BC ####[facility] [address]ysiap[address] [place], [place] [address]Dr. Digna Thomas WBC 11.8 103/ul Critically high 4.0-11.0 [facility] Comment on above: Performed By: #### C BC ####[facility] [address]trj[address] [place] [address]Dr. Digna Thomas GLYCOHEMOGLOBIN A1Con 2021 ADA RECOMMENDATION SEE BELOW Normal [facility] Comment on above: Result Comment: ADA RECOMMENDED LIMIT 4.0 - 6.0 ADA THERAPEUTIC TARGET < 7.0 ACTION SUGGESTED > 7.0 Performed By: #### A 1C ####[facility] [address] [place] [address]Dr. Digna Thomas Glucose [Mass/Vol] 183 mg/dL Normal [facility] Comment on above: Performed By: #### A 1C ####[facility] Xchyoadmxu[address] [place] [address]Dr. Digna Thomas HbA1c (Bld) [Mass fraction] 8.0 % Critically high 4.5-6.2 [facility] Comment on above: Performed By: #### A 1C ####[facility] [address]qlv[address] [place], [place] [address]Dr. Digna Thomas LIPID PROFILEon 07-11-2022 CHOL-HDL RATIO NORM SEE BELOW Normal [facility] Comment on above: Result Comment: 3.3 - 4.4 LOW RISK 4.4 - 7.1 AVERAGE RISK 7.1 - 11.0 MODERATE RISK >11.0 HIGH RISK Performed By: #### B MP, LIPID, TSH ####[facility] [address]rex[address] [place] [address]Dr. Digna Thomas Cholesterol [Mass/Vol] 161 mg/dL Normal <=200 [facility] Comment on above: Performed By: #### B MP, LIPID, TSH ####[facility] [address]xa[address] [place] [address]Dr. Digna Thomas Cholesterol in HDL [Mass/Vol] 51 mg/dL Normal 40-60 [facility] Comment on above: Performed By: #### B MP, LIPID, TSH ####[facility] [address]ef[address] [place] [id number]. Digna Thomas Cholesterol in LDL [Mass/Vol] 86.2 mg/dL Normal [facility] Comment on above: Performed By: #### B MP, LIPID, TSH ####[facility] [address]tezzsyc[address] [place] [address]Dr. Digna Thomas Cholesterol.total/Ch olesterol in HDL [Mass ratio] 3.2 {ratio} Normal [facility] Comment on above: Performed By: #### B MP, LIPID, TSH ####[facility] [address]ocor[address] [place] [address]Dr. Digna Thomas HDL NORMAL > or = 60 mg/dl - LOW CARDIOVASCULAR RISK <40 mg/dl - HIGH CARDIOVASCULAR RISK Normal [facility] Comment on above: Performed By: #### B MP, LIPID, TSH ####[facility] [address]gs[address] [place] [address]Dr. Digna Thomas LDL CALC NORMAL SEE BELOW Normal [facility] Comment on above: Result Comment: <100 mg/dl OPTIMAL 100 - 129 mg/dl NEAR OR ABOVE OPTIMAL 130 - 159 mg/dl BORDERLINE HIGH 160 - 189 mg/dl HIGH >190 mg/dl VERY HIGH Performed By: #### B MP, LIPID, TSH ####[facility] [address]rf[address] [place] [address]Dr. Digna Thomas Triglyceride [Mass/Vol] 119 mg/dL Normal <=150 [facility] Comment on above: Performed By: #### B MP, LIPID, TSH ####[facility] [address]rbiht[address] [place] [address]Dr. Digna Thomas VLDL CALC 23.8 mg/dL Normal [facility] Comment on above: Performed By: #### B MP, LIPID, TSH ####[facility] [address]mf[address]so[address] [place] [address]Dr. Digna Thomas MG MAMM SCREEN 3D JANE CADon 07-11-2022 MG MAMM SCREEN 3D JANE CAD Patient: JING GRAY Exam Date: 07/11/2022 : 1975 Gender:F Ordering : DR KELECHI GALVAN D.O. Admission #: [id number] Family : Order #: [id number] CLICK HERE TO VIEW EXAM RADIOLOGY REPORT PROCEDURE: MAMMOGRAM SCREENING 3D BILATERAL CAD COMPARISON: MG MAMM JANE SCRN W CAD DIG, 01/02/2015. INDICATIONS: Screening mammography Calculator Name NCI Breast Cancer Risk Assessment Tool 5 Year Breast Cancer Risk 1.10% Lifetime Breast Cancer Risk 11.30% Personal Breast Cancer No Personal Ovarian Cancer No Treatments None Family Cancers Grandmother-maternal with breast cancer at age 53; Aunt-maternal with breast cancer at age 38; Aunt-maternal with breast cancer at age 45; Aunt-maternal with ovarian cancer at age 40; Aunt-maternal with bladder cancer at age 45; Father with bladder cancer at age 52. LOCATION: [facility] BREAST COMPOSITION: Scattered areas [...] Cagle MD on 07/11/2022 at 10:14 Normal [facility] MICROALBUMIN, RAND URon 10-3 mALB 10.1 mg/L Normal <=30.0 [facility] Comment on above: Performed By: #### M ALBR #### [facility] [address] [place], [place] [address] Dr. Digna Thomas PROF CHEM 8 (BAS METB)on Anion gap [Moles/Vol] 10.6 mmol/L Normal [facility] Comment on above: Performed By: #### B MP, LIPID, TSH ####[facility] [address] [place], [place] [address]Dr. Digna Thomas Calcium [Mass/Vol] 9.3 mg/dL Normal 8.5-10.1 [facility] Comment on above: Performed By: #### B MP, LIPID, TSH ####[facility] [address]we[address]zusb[address] [place] [address]Dr. Digna Thomas Chloride [Moles/Vol] 99 mmol/L Normal 98-107 [facility] Comment on above: Performed By: #### B MP, LIPID, TSH ####[facility] [address]ajrozaiad[address] [place] [address]Dr. Digna Thomas CO2 [Moles/Vol] 28.3 mmol/L Normal 21.0-32.0 [facility] Comment on above: Performed By: #### B MP, LIPID, TSH ####[facility] [address]riek[address] [place], [place] [address]Dr. Digna Thomas Creatinine [Mass/Vol] 0.74 mg/dL Normal 0.55-1.02 [facility] Comment on above: Performed By: #### B MP, LIPID, TSH ####[facility] [address]pur[address]qdus[address] [place], [place] [address]Dr. Digna William EGFR-AF FRENCH >60 Normal >=60 [facility] Comment on above: Performed By: #### B MP, LIPID, TSH ####[facility] [address]juqkpnjtf[address] [place], [place] [address]Dr. Digna Thomas EGFR-NON AF FRENCH >60 Normal >=60 [facility] Comment on above: Performed By: #### B MP, LIPID, TSH ####[facility] [address] [place] [address]Dr. Digna Thomas Glucose [Mass/Vol] 190 mg/dL Critically high 74-106 [facility] Comment on above: Performed By: #### B MP, LIPID, TSH ####[facility] [address]xim[address] [place], [place] [address]Dr. Digna Thomas Potassium [Moles/Vol] 3.9 mmol/L Normal 3.5-5.1 [facility] Comment on above: Performed By: #### B MP, LIPID, TSH ####[facility] X[address]vwqjdhi[address] [place] [address]Dr. Anajs Thomas Sodium [Moles/Vol] 134 mmol/L Critically low 136-145 [facility] Comment on above: Performed By: #### B MP, LIPID, TSH ####[facility] D[address]xeadbbm[address] [place], [place] [address]Hj. Digna Thomas Urea nitrogen [Mass/Vol] 13.0 mg/dL Normal 7.0-18.0 [facility] Comment on above: Performed By: #### B MP, LIPID, TSH ####[facility] [address]jp[address]yu[address] [place], [place] [address]Gi. Digna Thomas Urea nitrogen/Creatinine [Mass ratio] 17.6 mg/mg Normal [facility] Comment on above: Performed By: #### B MP, LIPID, TSH ####[facility] [address]zh[address] [place], [place] [address]Vn. Digna Thomas TSHon 07-11-2022 TSH 4.084 uIU/mL Critically high 0.358-3.740 [facility] Comment on above: Performed By: #### B MP, LIPID, TSH #### [facility] [address] [place], [place] [address] Dr. Digna Thomas Vital Signs Date Time Vital Sign Value Performing Clinician Facility 10-27-2024 13:58-0500 Body height 165.1 cm [facility] 10-27-2024 13:58-0500 Body mass index (BMI) [Ratio] 49.4 kg/m2 [facility] 10-27-2024 13:58-0500 Body weight 134.71 kg [facility] 10-27-2024 13:58-0500 Diastolic blood pressure 79 mm[Hg] [facility] 10-27-2024 13:58-0500 Heart rate 83 /min [facility] 10-27-2024 13:58-0500 Respiratory rate 18 /min [facility] 10-27-2024 13:58-0500 SaO2% (BldA) [Mass fraction] 99 % [facility] 10-27-2024 13:58-0500 Systolic blood pressure 125 mm[Hg] [facility] 08-23-2024 08:40-0500 Body height 165.1 cm [facility] 08-23-2024 08:40-0500 Body mass index (BMI) [Ratio] 46 kg/m2 [facility] 08-23-2024 08:40-0500 Body weight 125.36 kg [facility] 08-23-2024 08:40-0500 Diastolic blood pressure 79 mm[Hg] [facility] 08-23-2024 08:40-0500 Heart rate 66 /min [facility] 08-23-2024 08:40-0500 Respiratory rate 16 /min [facility] 08-23-2024 08:40-0500 Systolic blood pressure 127 mm[Hg] [facility] 08-18-2024 12:29-0500 Body height 165.1 cm [facility] 08-18-2024 12:29-0500 Body mass index (BMI) [Ratio] 48.4 kg/m2 [facility] 08-18-2024 12:29-0500 Body temperature 98.8 [degF] [facility] 08-18-2024 12:29-0500 Body weight 132 kg [facility] 08-18-2024 12:29-0500 Diastolic blood pressure 73 mm[Hg] [facility] 08-18-2024 12:29-0500 Heart rate 76 /min [facility] 08-18-2024 12:29-0500 Respiratory rate 17 /min [facility] 08-18-2024 12:29-0500 SaO2% (BldA) [Mass fraction] 97 % [facility] 08-18-2024 12:29-0500 Systolic blood pressure 125 mm[Hg] [facility] 08-07-2024 13:26-0500 Body height 165.1 cm Antione Sugey DO Work Phone: [facility] 08-07-2024 13:26-0500 Body mass index (BMI) [Ratio] 45.43 kg/m2 Antione Sugey DO Work Phone: [facility] 08-07-2024 13:26-0500 Body weight 123.83 kg Antione Sugey DO Work Phone: [facility] 08-07-2024 13:26-0500 Diastolic blood pressure 74 mm[Hg] Antione Sugey DO Work Phone: [facility] 08-07-2024 13:26-0500 Heart rate 70 /min Antione Sugey DO Work Phone: [facility] 08-07-2024 13:26-0500 SaO2% (BldA) [Mass fraction] 97 % Antione Sugey DO Work Phone: [facility] 08-07-2024 13:26-0500 Systolic blood pressure 118 mm[Hg] Antione Sugey DO Work Phone: [facility] 07-22-2024 10:35-0500 Body height 165.1 cm [facility] 07-22-2024 10:35-0500 Body mass index (BMI) [Ratio] 44.1 kg/m2 [facility] 07-22-2024 10:35-0500 Body weight 120.25 kg [facility] 07-22-2024 10:35-0500 Diastolic blood pressure 95 mm[Hg] [facility] 07-22-2024 10:35-0500 Heart rate 74 /min [facility] 07-22-2024 10:35-0500 Respiratory rate 16 /min [facility] 07-22-2024 10:35-0500 Systolic blood pressure 164 mm[Hg] [facility] 06-21-2024 11:44-0400 Body height 165.1 cm [facility] 06-21-2024 11:44-0400 Body mass index (BMI) [Ratio] 42.3 kg/m2 [facility] 06-21-2024 11:44-0400 Body weight 115.26 kg [facility] 06-21-2024 11:44-0400 Diastolic blood pressure 78 mm[Hg] [facility] 06-21-2024 11:44-0400 Heart rate 71 /min [facility] 06-21-2024 11:44-0400 Respiratory rate 12 /min [facility] 06-21-2024 11:44-0400 Systolic blood pressure 129 mm[Hg] [facility] 04-16-2024 08:34-0400 Body height 165.1 cm [facility] 04-16-2024 08:34-0400 Body mass index (BMI) [Ratio] 40.3 kg/m2 [facility] 04-16-2024 08:34-0400 Body weight 109.99 kg [facility] 04-16-2024 08:34-0400 Diastolic blood pressure 81 mm[Hg] [facility] 04-16-2024 08:34-0400 Heart rate 71 /min [facility] 04-16-2024 08:34-0400 Respiratory rate 12 /min [facility] 04-16-2024 08:34-0400 Systolic blood pressure 117 mm[Hg] [facility] 01-27-2024 13:11-0400 Body height 165.1 cm [facility] 01-27-2024 13:11-0400 Body mass index (BMI) [Ratio] 42.9 kg/m2 [facility] 01-27-2024 13:11-0400 Body temperature 97.1 [degF] [facility] 01-27-2024 13:11-0400 Body weight 117.02 kg [facility] 01-27-2024 13:11-0400 Heart rate 64 /min [facility] 01-27-2024 13:11-0400 Respiratory rate 16 /min [facility] 01-27-2024 13:11-0400 SaO2% (BldA) [Mass fraction] 97 % [facility] 01-15-2024 08:41-0400 Body height 165.1 cm [facility] 01-15-2024 08:41-0400 Body mass index (BMI) [Ratio] 43 kg/m2 [facility] 01-15-2024 08:41-0400 Body weight 117.25 kg [facility] 01-15-2024 08:41-0400 Diastolic blood pressure 79 mm[Hg] [facility] 01-15-2024 08:41-0400 Heart rate 76 /min [facility] 01-15-2024 08:41-0400 Respiratory rate 12 /min [facility] 01-15-2024 08:41-0400 Systolic blood pressure 127 mm[Hg] [facility] 11-20-2023 12:57-0400 Body height 165.1 cm [facility] 11-20-2023 12:57-0400 Body mass index (BMI) [Ratio] 46.3 kg/m2 [facility] 11-20-2023 12:57-0400 Body weight 126.26 kg [facility] 11-20-2023 12:57-0400 Diastolic blood pressure 70 mm[Hg] [facility] 11-20-2023 12:57-0400 Systolic blood pressure 122 mm[Hg] [facility] 10-17-2023 09:00-0500 Body height 165.1 cm Kelechi Ball Other [facility] [employer] Other 10-17-2023 09:00-0500 Body mass index (BMI) [Ratio] 48.49 kg/m2 Kelechi Ball Other [facility] Other 10-17-2023 09:00-0500 Body weight 132.18 kg Kelechi Ball Other [facility] Other 10-17-2023 09:00-0500 Diastolic blood pressure 88 mm[Hg] Kelechi Ball Other [employer] [facility] Other 10-17-2023 09:00-0500 Respiratory rate 12 /min Kelechi Ball Other [facility] Other 10-17-2023 09:00-0500 Systolic blood pressure 138 mm[Hg] Kelechi Ball Other [facility] Other 09-22-2023 09:00-0500 Body height 165.1 cm Kelechi Ball Other [facility] 09-22-2023 09:00-0500 Body mass index (BMI) [Ratio] 50.25 kg/m2 Kelechi Ball Other [facility] Other 09-22-2023 09:00-0500 Body weight 136.99 kg Kelechi Ball Other [facility] Other 09-22-2023 09:00-0500 Body weight 136.98 kg [facility] 09-22-2023 09:00-0500 Diastolic blood pressure 85 mm[Hg] Kelechi Ball Other [facility] 09-22-2023 09:00-0500 Respiratory rate 12 /min Kelechi Ball Other [facility] Other 09-22-2023 09:00-0500 Systolic blood pressure 136 mm[Hg] Kelechi Ball Other [facility] 08-22-2023 08:30-0500 Body height 165.1 cm Kelechi Ball Other [facility] 08-22-2023 08:30-0500 Body mass index (BMI) [Ratio] 52.95 kg/m2 Kelechi Ball Other [facility] Other 08-22-2023 08:30-0500 Body weight 144.34 kg Kelechi Ball Other [facility] Other 08-22-2023 08:30-0500 Body weight 144.33 kg [facility] 08-22-2023 08:30-0500 Diastolic blood pressure 75 mm[Hg] Kelechi Ball Other [facility] 08-22-2023 08:30-0500 Respiratory rate 12 /min Kelechi Ball Other [facility] Other 08-22-2023 08:30-0500 Systolic blood pressure 115 mm[Hg] Kelechi Ball Other [facility] 05-26-2023 09:40-0400 Body height 165.1 cm Angélica Swann Other [employer] Other 05-26-2023 09:40-0400 Body mass index (BMI) [Ratio] 51.88 kg/m2 Angélica Hue Other [employer] Other 05-26-2023 09:40-0400 Body temperature 98 [degF] Angélica Swann Other [employer] Other 05-26-2023 09:40-0400 Body weight 141.43 kg Angélica Hue Other [employer] Other 05-26-2023 09:40-0400 Diastolic blood pressure 68 mm[Hg] Angélica Swann Other [employer] Other 05-26-2023 09:40-0400 Respiratory rate 18 /min Angélica Swann Other [employer] Other 05-26-2023 09:40-0400 SaO2% (BldA) [Mass fraction] 96 % Angélica Swann Other [employer] Other 05-26-2023 09:40-0400 Systolic blood pressure 110 mm[Hg] Angélica Hue Other [employer] Other 02-28-2023 13:15-0400 Body height 165.1 cm Kelechi Ball Other [employer] Other 02-28-2023 13:15-0400 Body mass index (BMI) [Ratio] 52.55 kg/m2 Kelechi Ball Other [employer] Other 02-28-2023 13:15-0400 Body weight 143.25 kg Kelechi Ball Other [employer] Other 02-28-2023 13:15-0400 Diastolic blood pressure 77 mm[Hg] Kelechi Ball Other [employer] Other 02-28-2023 13:15-0400 Respiratory rate 12 /min Kelechi Ball Other [employer] Other 02-28-2023 13:15-0400 Systolic blood pressure 118 mm[Hg] Kelechi Ball Other [employer] Other 01-16-2023 12:30-0400 Body height 165.1 cm Kelechi Ball Other [employer] Other 01-16-2023 12:30-0400 Body mass index (BMI) [Ratio] 52.28 kg/m2 Kelechi Ball Other [employer] Other 01-16-2023 12:30-0400 Body weight 142.52 kg Kelechi Ball Other [employer] Other 01-16-2023 12:30-0400 Diastolic blood pressure 72 mm[Hg] Kelechi Ball Other [employer] Other 01-16-2023 12:30-0400 Respiratory rate 16 /min Kelechi Ball Other [employer] Other 01-16-2023 12:30-0400 Systolic blood pressure 147 mm[Hg] Kelechi Ball Other [employer] Other 01-11-2023 18:10-0400 Body height 165.1 cm Angélica Swann Other [employer] Other 01-11-2023 18:10-0400 Body mass index (BMI) [Ratio] 52.41 kg/m2 Angélica cMqueenmond Other [employer] Other 01-11-2023 18:10-0400 Body temperature 99.6 [degF] Angélica Hue Other [employer] Other 01-11-2023 18:10-0400 Body weight 142.88 kg Angélica Hue Other [facility] Other 01-11-2023 18:10-0400 Diastolic blood pressure 64 mm[Hg] Angélica Hue Other [employer] Other 01-11-2023 18:10-0400 Respiratory rate 20 /min Angélica Hue Other [facility] Other 01-11-2023 18:10-0400 SaO2% (BldA) [Mass fraction] 96 % Angélica Swann Other [employer] Other 01-11-2023 18:10-0400 Systolic blood pressure 117 mm[Hg] Angélica Hue Other [employer] Other 10-18-2022 12:00-0500 Body height 165.1 cm Kelechi Ball Other [employer] Other 10-18-2022 12:00-0500 Body mass index (BMI) [Ratio] 52.31 kg/m2 Kelechi Ball Other [employer] Other 10-18-2022 12:00-0500 Body weight 142.61 kg Kelechi Ball Other [employer] Other 10-18-2022 12:00-0500 Diastolic blood pressure 84 mm[Hg] Kelechi Galvan Other [facility] Other 10-18-2022 12:00-0500 Respiratory rate 12 /min Kelechi Galvan Other [employer] Other 10-18-2022 12:00-0500 Systolic blood pressure 122 mm[Hg] Kelechi Galvan Other [facility] Other Encounters Encounter Date Encounter Type Care Provider Facility Start: 10-27-2024 End: 10-27-2024 ambulatory [facility] Work Phone: Start: 10-27-2024 End: 10-27-2024 Patient encounter procedure [facility] Work Phone: Start: 10-09-2024 Non-patient / Non-visit [facility] [employer] Work Phone: Start: 08-29-2024 Non-patient / Non-visit [facility] Work Phone: Start: 08-23-2024 End: 08-23-2024 Encounter for general adult medical examination without abnormal findings [facility] Start: 08-23-2024 End: 08-23-2024 Patient encounter procedure [facility] Work Phone: Start: 08-21-2024 Patient encounter status [facility] Start: 08-18-2024 End: 08-18-2024 Patient encounter procedure [facility] Work Phone: Start: 08-07-2024 End: 08-07-2024 Bamboo flowsheet Antione Sugey DO Work Phone: [employer] [address] Start: 08-07-2024 End: 08-07-2024 Bamboo flowsheet Antione Sugey DO Work Phone: [employer] [address] Start: 08-07-2024 End: 08-07-2024 Office outpatient visit 25 minutes Antione Madera DO Work Phone: [facility] [address] Comment on above: REBA (obstructive sle ep apnea) (Primary Dx); Hypoxia; Hypersomnia; Obesity due to excess calories, unspecified class, unspecified whether serious comorbidity present; Snoring Start: 08-07-2024 End: 08-07-2024 ambulatory ANTIONE MADERA Not Available Start: 07-22-2024 End: 07-22-2024 ambulatory [facility] Work Phone: Start: 07-22-2024 End: 07-22-2024 Patient encounter procedure [facility] Work Phone: Start: 06-21-2024 End: 06-21-2024 ambulatory [facility] Work Phone: Start: 06-21-2024 End: 06-21-2024 Patient encounter procedure [facility] Work Phone: Start: 04-16-2024 End: 04-16-2024 ambulatory [facility] Work Phone: Start: 04-16-2024 End: 04-16-2024 Patient encounter procedure [facility] Work Phone: Start: 01-27-2024 End: 01-27-2024 ambulatory [facility] Work Phone: Start: 01-27-2024 End: 01-27-2024 Patient encounter procedure [facility] Work Phone: Start: 01-15-2024 End: 01-15-2024 ambulatory [facility] Work Phone: Start: 01-15-2024 End: 01-15-2024 Patient encounter procedure [facility] Work Phone: Start: 11-27-2023 End: 11-28-2023 ambulatory Joe Becerra MD Facility:[facility] Start: 11-20-2023 Non-patient / Non-visit [facility] [employer] Work Phone: Start: 10-27-2023 End: 10-27-2023 ambulatory [facility] Work Phone: Start: 10-27-2023 End: 10-27-2023 Patient encounter procedure [facility] Work Phone: Start: 10-20-2023 End: 10-20-2023 ambulatory Kelechi Ball Other [employer] Other Start: 10-20-2023 Encounter by alysha lizarraga Kelechi Galvan [facility] Start: 10-17-2023 End: 10-17-2023 ambulatory Kelechi Ball Other [employer] Other Start: 10-17-2023 Office outpatient vi sit 15 minutes Kelechi Ball [facility] Start: 09-22-2023 End: 09-22-2023 ambulatory Kelechi Ball Other [employer] Other Start: 09-22-2023 Office outpatient vi sit 15 minutes Kelechi Ball [facility] Start: 09-22-2023 End: 09-22-2023 Patient encounter procedure [facility] Work Phone: Start: 09-08-2023 End: 09-08-2023 ambulatory Kelechi Ball Other [employer] Other Start: 09-08-2023 Telephone encounter Kelechi Ball [facility] Start: 08-28-2023 End: 08-28-2023 ambulatory Kelechi Ball Other [employer] Other Start: 08-28-2023 Telephone encounter Kelechi Ball [facility] Start: 08-26-2023 End: 08-26-2023 ambulatory Kelechi Ball Other [employer] Other Start: 08-26-2023 Telephone encounter Kelechi GRANDA [facility] Start: 08-22-2023 End: 08-22-2023 ambulatory Kelechi Galvan Other [employer] Other Start: 08-22-2023 Encounter for genera l adult medical examination without abnormal findings Kelechi Galvan [facility] Start: 08-22-2023 Periodic preventive med est patient 40-64yrs Kelechi Galvan [facility] Start: 08-22-2023 End: 08-22-2023 Patient encounter procedure [facility] Work Phone: Start: 05-26-2023 End: 05-26-2023 ambulatory Angélica Swann Other [employer] Other Start: 05-26-2023 Office outpatient vi sit 15 minutes Angélica Swann [facility] Start: 04-18-2023 End: 04-18-2023 ambulatory Kelechi Galvan Other [employer] Other Start: 04-18-2023 Office outpatient vi sit 15 minutes Kelechi Galvan [facility] Start: 02-28-2023 End: 02-28-2023 ambulatory Kelechi Galvan Other [employer] Other Start: 02-28-2023 Office outpatient vi sit 15 minutes Kelechi Galvan [facility] Start: 01-19-2023 End: 01-19-2023 ambulatory eKlechi Galvan Other [employer] Other Start: 01-19-2023 Telephone encounter Kelechi GRANDA [facility] Start: 01-16-2023 End: 01-16-2023 ambulatory Kelechi Galvan Other [employer] Other Start: 01-16-2023 Office outpatient vi sit 25 minutes Kelechi Galvan [facility] Start: 01-11-2023 End: 01-11-2023 Patient encounter procedure [facility] Angélica Swann Work Phone: [facility] Work Phone: Start: 01-11-2023 End: 01-11-2023 ambulatory Angélica Swann [facility] Work Phone: Start: 01-11-2023 Office outpatient vi sit 15 minutes Angélica Swann [facility] Start: 01-11-2023 Telephone encounter Kelechi GRANDA [facility] Start: 01-09-2023 Encounter for genera l adult medical examination without abnormal findings DR KELECHI GALVAN [facility] Start: 01-05-2023 End: 01-06-[address] KELECHI GALVAN Facility:[facility] Start: 01-05-2023 End: 01-06-2023 Encounter for general adult medical examination without abnormal findings DR KELECHI GALVAN Facility:[facility] Start: 01-03-2023 End: 01-03-2023 ambulatory Kelechi Galvan Other [employer] Other Start: 01-03-2023 Encounter for genera l adult medical examination without abnormal findings [facility]lechi [facility] Start: 01-03-2023 Patient encounter status Conrad Galvan Other [employer] Other Start: 01-03-2023 Telephone encounter Kelechi [facility] Start: 12-21-2022 End: 12-22-[address] KELECHI GALVAN Facility:[facility] Start: 12-08-2022 End: 12-09-[address] KELECHI GALVAN Facility:[facility] Start: 11-23-2022 End: 11-23-2022 ambulatory Kelechi Galvan Other [employer] Other Start: 11-23-2022 Telephone encounter [facility]lechi [facility] Start: 11-16-2022 End: 11-17-[address] KELECHI GALVAN Facility:[facility] Start: 11-09-2022 End: 11-24-[address] KELECHI GALVAN Facility:[facility] Start: 11-03-2022 End: 11-04-[address] KELECHI GALVAN Facility:[facility] Start: 10-27-2022 End: 10-28-[address] KELECHI GALVAN [facility] Other Start: 10-27-2022 Telephone encounter Kelechi GRANDA [facility] Start: 10-18-2022 End: 10-18-2022 ambulatory Kelechi Galvan Other [employer] Other Start: 10-18-2022 Office outpatient vi sit 25 minutes Kelechi Galvan [facility] Start: 10-07-2022 End: 10-07-2022 ambulatory Kelechi Galvan Other [employer] Other Start: 10-07-2022 Telephone encounter Kelechi GRANDA [facility] Start: 08-26-2022 Adult health examination Conrad omer [facility] Other [facility] Other Start: 07-11-2022 End: 07-12-[address] KELECHI GALVAN Facility:[facility] Start: 04-07-2022 End: 04-08-[address] DEANN ELIAS . Facility:[facility] Start: 07-28-2019 Pre-procedure evalua tion check Kelechi Galvan Other [facility] Other Start: 07-17-2018 Gynecological examination normal Kelechi Galvan Other [facility] Other Procedures Date Procedure Procedure Detail Performing Clinician Start: 01-11-2023 Plain X-ray of right hand [facility] Angélica Swann Work Phone: Start: 01-18-2019 Preoperative [...] procedure 08/07/2024 1:30 PM EST Office Visit [facility] [address] [place] [id number] Antione Madera DO [address] [place] [address] [address] [facility] [address] [address] Comment on above: Arrived Start: 03-09-2023 ambulatory Ambulatory Facility:H 1 Comprehensive metabo lic 2000 panel - Serum or Plasma [facility] MG Breast - bilatera l Screening [facility] Payers Date Payer Category Payer Unknown 2023 Self-pay 2021 Private Health Insurance [employer] [employer] [id number] 1974 Unknown [id number] 1974 Unknown [id number]. 593 1974 Unknown [id number] [id number]. 593 1974 Unknown [id number] [id number]. 59 1974 Unknown [id number] [id number]. 593 1974 Unknown [id number] [id number]. 593 1974 Unknown [id number] [id number]. 593 1974 Unknown [id number] [id number]. 593 1974 Unknown [id number] [id number]. 593 1974 Unknown [id number] [id number]. 593 1974 Unknown [id number] [id number]. 593 1974 Unknown [id number] [id number]. 196 1974 Unknown [id number] [id number]. 1259 1959 Unknown [id number] 1959 Unknown [id number] Medicaid [employer] [id number] Unknown [id number]. 531 Social History Date Type Detail Facility Unknown if ever smoked [facility] Other Start: 08-07-2024 Sex Assigned At [place] [employer] Other Start: 1975 Sex Assigned At Female [facility] Start: 05-16-2018 End: 05-16-2018 Tobacco smoking status SDIS Never smoked tobacco (finding) [facility] Start: 01-27-2024 End: 01-27-2024 Tobacco smoking status SDIS Ex-smoker (finding) [facility] Start: 07-22-2024 End: 10-27-2024 Sex Female (finding) [facility] Tobacco smoking stat [facility] Tobacco smoking consumption unknown [facility] Start: 1975 Sex assigned at Not on file [facility] Start: 09-11-1988 End: 09-11-2003 History of tobacco use Current smoker [facility] Start: 09-11-1988 End: 09-11-2003 History of tobacco use Cigarette Smoker [facility] Start: 08-07-2024 Cigarettes smoked current (pack per day) - Reported 1.5 [facility] Start: 08-07-2024 Tobacco use and exposure Smokeless tobacco non-user [facility] Start: 08-07-2024 Alcoholic beverage intake Lifetime non-drinker (finding) [facility] Medical Equipment Procedure Code Equipment Code Equipment Origin al Text Equipment Identifier Dates Blood Sugar Diagnostic (Onetouch Ultra Test) strip Start: 06-10-2024 Blood Sugar Diagnostic (Onetouch Ultra Test) strip Start: 06-10-2024 End: 06-10-2024 Blood Sugar Diagnostic (Onetouch Ultra Test) strip Start: 06-10-2024 Blood Sugar Diagnostic (Onetouch Ultra Test) strip Start: 06-10-2024 End: 06-10-2024 1 each by Other route if needed. Start: 04-29-2023 Blood Sugar Diagnostic (Onetouch Ultra Test) strip Start: 06-10-2024 Blood Sugar Diagnostic (Onetouch Ultra Test) strip Start: 06-10-2024 End: 06-10-2024 Clinical Notes 05-31-2011 to 08-18-2024 Note Date & Type Note Facility 08-18-2024 Evaluation note Diagnosis Onset Date Resolution Otitis media noneactive August 12:19pm Insomnia acute August 23, 2024 8:26am Major depression acute August 23, 2024 8:26am Obesity acute August 23, 2024 8:26am REBA (obstructive sleep apnea) acute August 23 2 024 8:26am Primary hypertension acute Dece 2023 8:26am Prolactinoma acute August 8:26am Screening mammogram for breast cancer acute August 23 024 8:26am Type 2 diabetes mellitus with hyperglycemia acute August 8:26am Wellness examination acute Dece 2023 8:26am [facility] Work Phone: [phone]) 456-247811-27-2024 History of Present illness Narrative* Antione Madera DO - 08/07/2024 1:30 PM EST Chief Complaint Patient presents with Sleep Apnea [...] to her new mask. That seemed to helpa lot. She had some anxiety and depression [...] minutes and residual AHI of 0.3. Her Clover Sleepiness scale is a 3. She does have underlying obesity but is trying to work hard with diet exercise and weight loss. [place] about 70 lb but gained a litte bit back and knows she needs to get back on her regular programas she was doing very well. Plan Compliance data was reviewed with her and she is compliant Clover Sleepiness scale is 3 Continue use the CPAP machine whenever sleeping Get back on the diet and exercise regimen The patient was counseled on the need for aggressive diet, exercise, and weight loss. The patient was counseled on proper sleep hygiene and adequate hours of sleep. The patient was counseled on the risks of stroke, NH, and sudden with REBA, along with the [...] to clinic: 1 year documented in this encounterResearch [facility] [id number] Evaluation note* Diagnosis Onset Date Resolution Status Admit Date Carpal tunnel syndrome of right wrist acute June 21 11:38am Insomnia acute June 21, 2024 11:38am Major depression acute June 21, 2024 11:38am Panic attack acute June 11:38am Insomnia acute July 22, 2024 10:19am Major depression acute July 22, 2024 10:19am Panic attack acute July 10:19am Primary hypertension acute [facility] 2023 10:19am [facility] Work Phone: [phone]) 930-882702-09-2024 Evaluation note* Encounter Date Diagnosis Assessment Notes Treatment Notes Treatment Clinical Notes Oct, Morbid (severe) obesity due to excess calories (ICD-10 - E66.01) [facility] Other 02-06-2024 Evaluation note* Encounter Date Diagnosis [...] index [BMI] 50.0-59.9, adult (ICD-10 - Z68.43) [facility] Other 01-12-2024 Evaluation note* Encounter Date Diagnosis [...] index [BMI] 50.0-59.9, adult (ICD-10 - Z68.43) [facility] Other 12-29-2023 Evaluation note* Encounter Date Diagnosis Assessment Notes Treatment Notes Treatment Clinical Notes Aug, Prolactinoma (ICD-10 - D35.2) MRI < 10mm, prolactin 80 - 2022 [facility] Other 12-16-2023 Evaluation note* Encounter Date Diagnosis Assessment Notes Treatment Notes Treatment Clinical Notes Aug, Hyperprolactinemia (ICD-10 - E22.1) [facility] Other 12-12-2023 Evaluation note* Encounter Date Diagnosis [...] use, the patient reduces the risk for NH, CVA, HTN, cardiac dysrhythmias and sudden cardiac [...] patient on monthly SBE and yearly mammograms. 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 Apr, Primary hypertension (ICD-10 - I10) This [...] use, the patient reduces the risk for NH, CVA, HTN, cardiac dysrhythmias and sudden cardiac deaths.The patient is also aware of the association between REBA and morning headaches, daytime somnolence, fatigue and obesity, which also has been improved with continued use.The patient is compliant with treatment, wearing the equipment every night for greater than 4 hours.The patient is instructed to continue use of the CPAP for REBA treatment. [facility] Other 06-20-2023 Evaluation note* Encounter Date Diagnosis Assessment Notes Treatment Notes Treatment Clinical Notes Feb, Seborrheic dermatitis of scalp (ICD-10 - L21.9) Keep clean, avoid scratching Stop using Mupirocin Initiate topical steroid ointment Feb, Primary hypertension (ICD-10 - I10) This patient is instructed to consume a healthy, low-fat, low-salt diet. They are also encouraged to continue exercise to achieve/maintain a normal BMI. [facility] Other 05-11-2023 Evaluation note* Encounter Date Diagnosis Assessment Notes Treatment Notes Treatment Clinical Notes January, Type 2 diabetes mellitus with hyperglycemia, without long-term current use of insulin (ICD-10 - E11.65) [facility] Other 05-08-2023 Evaluation note* Encounter Date Diagnosis [...] is aware of the benefits associated with RBEA: With continued use, the patient reduces the risk for NH, CVA, HTN, cardiac dysrhythmias and sudden cardiac [...] visual defects. January, Hyperprolactinemia (ICD-10 - E22.1) [facility] Other 05-03-2023 Evaluation note* Encounter Date Diagnosis Assessment Notes Treatment Notes Treatment Clinical Notes January, REBA (obstructive sleep apnea) (ICD-10 - G47.33) AHI 104 w/ Psat 68%, BiPAP , full facial mask [facility] Other 05-03-2023 Evaluation note* Encounter Date Diagnosis [...] no improvement in 2 to 3 days [facility] Other 04-25-2023 Evaluation note* Encounter Date Diagnosis Assessment Notes Treatment Notes Treatment Clinical Notes Dec, Type 2 diabetes mellitus with hyperglycemia, without long-term current use of insulin (ICD-10 - E11.65) Dec, Primary hypertension (ICD-10 - I10) Dec, Wellness examination (ICD-10 - Z00.00) [facility] Other 03-30-2023 NoteCONSULTATION CONSULTATION DATE: 12/08/2022 TO: [...] this point for her residual pain symptoms.[id number] Evaluation note* Encounter Date Diagnosis Assessment Notes Treatment Notes Treatment Clinical Notes Nov, REBA (obstructive sleep apnea) (ICD-10 - G47.33) AHI 101 w/ Psat 79% [facility] Other 03-15-2023 Evaluation note* Encounter Date Diagnosis Assessment Notes Treatment Notes Treatment Clinical Notes Nov, REBA (obstructive sleep apnea) (ICD-10 - G47.33) AHI 104 w/ Psat 68% [facility] Other 02-23-2023 NotePAIN MANAGEMENT CONSULTATION CONSULTATION DATE: [...] four weeks' time or sooner if needed.[facility] 11-03-2022 NotePAIN MANAGEMENT CONSULTATION [...] on his response to change in medication.[facility] 10-18-2022 Evaluation note* Encounter [...] (ICD-10 - R29.818) Referral for sleep study [facility] Other 07-28-2022 NoteCONSULTATION CONSULTATION DATE: 04/07/2022 HISTORY [...] Patient states understanding and all questions answered.[facility] [id number] History general Narrative - Reported* Type Description Date Medical History hypertension Medical History back pain Medical History degenerative disc disease Medical History Prolactinoma Medical History asthma Surgical History C section 05/31/2011 Surgical History IVF 12/01/2008 Surgical History hysterectomy laps assisted 04-2 007 Surgical History right foot sx (planter) Hospitalization History see above Hospitalization History blood transfusion 09/2014 [facility] Other Chief complaint+Reason for visit Narrative* Chief Complaint COVID+ Amb Documentation 3 month follow up Reason for Visit COVID-19 Lumbar spondylosis REBA (obstructive sleep apnea) Primary hypertension Type 2 diabetes mellitus with hyperglycemia [facility] Work Phone: Evaluation noteNo [facility] [employer] Other Evaluation noteNo assessment information available [facility] Work Phone: Evaluation note* Diagnosis Onset Date Resolution Status Type 2 diabetes mellitus with hyperglycemia acute COVID-19 noneactive [facility] Work Phone: Evaluation note* Diagnosis Onset Date Resolution Status COVID-19 noneactive Lumbar spondylosis acute REBA (obstructive sleep apnea) acute Primary hypertension acute Type 2 diabetes mellitus with hyperglycemia acute [facility] Work Phone: Evaluation note* Diagnosis Onset Date Resolution Status Obesity acute Primary hypertension acute Type 2 diabetes mellitus with hyperglycemia acute [facility] Work Phone: Evaluation note* Diagnosis Onset Date Resolution Status Right otitis media with effusion acute Obesity acute Primary hypertension acute Type 2 diabetes mellitus with hyperglycemia acute [facility] Work Phone: Evaluation note* Diagnosis Onset Date Resolution Status Obesity acute REBA (obstructive sleep apnea) acute Palpitation acute Primary hypertension acute Type 2 diabetes mellitus with hyperglycemia acute [facility] Work Phone: evaluation note* Diagnosis REBA (obstructive sleep apnea)- Primary [...] see above Hospitalization History blood transfusion 09/2014 [facility] Other Summary Purpose Family History Relationship Condition [...] 10:19am Primary hypertension July 22, 2024 10:19am Chief Complaint Admit Date Ear pain, cough August 18, 2024 1 2:19pm wellness August 23, 2024 8:26am CC Adult Risk Stratification August 292023 2:44pm left hip pain unk injury October 27, 2024 1:38pm Reason for Visit Admit Date Otitis media August 18, 2024 1 2:19pm Insomnia August 23, 2024 8:26am Major depression August 23, 2024 8:26am Obesity August 23, 2024 8:26am REBA (obstructive sleep apnea) August 112023 8:26am Primary hypertension August 23, 2024 8:26am Prolactinoma August 23, 2024 8:26am Screening mammogram for breast cancer cember 2023 8:26am Type 2 diabetes mellitus with hyperglyce wiliam August 23, 2024 8:26am Wellness examination August 23, 2024 8:26am Additional Source Comments REASON FOR VISIT (unrecogniz ed section and content) Reason Comments Sleep Apnea INFORMATION SOURCE (unrecogn ized section and content) DATE CREATED AUTHOR 01/11/2023 [facility] DATE CREATED AUTHOR AUTHOR'S ORGANIZ ATION 01/12/2023 [facility] DATE CREATED AUTHOR AUTHOR'S ORGANIZ ATION 01/01/2024 [facility] DATE CREATED AUTHOR AUTHOR'S ORGANIZ ATION 08/10/2024 [facility] EPIC Care Teams (unrecognized sec tion [...] Inactive Member Role Status Alan Galvan DO Attending Provider Active Sta rt: [...] July 22, 2024 End: July 22, 2024 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 Relationship Specialty Start Date End Date Kelechi Galvan MD [address] [place] [address] PCP - General Internal Medicine 9/14/23 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 Manager Relationship Specialty Start Date End Date Kelechi Galvan MD [address] [place] [address] PCP - General Internal Medicine 05/25/23 Team Status: Inactive Member Role Status Dates Kelechi Galvan , Primary Care Provider Active Start: August 18, 2024 End: August 18, 2024 Radha Richardson APRN Attending Provider Active Start: August 18, 2024 End: August 18, 2024 Team Status: Inactive Member Role Status Dates Kelechi Galvan , DO Primary Care Provide r, Attending Provider Active Start: August 23, 2024 End: August 23, 2024 Team Status: Active Member Role Status Dates Kelechi Galvan , DO Primary Care Provide r, Attending Provider Active Start: August 29, 2024 Team Status: Active Member Role Status Dates Kelechi Galvan , DO Primary Care Provide r, Attending Provider Active Start: October 09, 2024 Team Status: Inactive Member Role Status Dates Kelechi Galvan DO Primary Care Provider Active Start: October 27, 2024 End: October 27, 2024 Karlene Ortiz APRN Attending Provider Active Start: October 27, 2024 End: October 27, 2024 Goals (unrecognized section and content) [...] BE BASED ON THE PRIMARY CLINICAL RECORDS. [email or web address] provides no warranty or guarantee of the accuracy or completeness of information in this document.
--- NOTE | 2024-12-04 07:57 | P.CN_ITS ---
Consult Note: HPI Data of Consult Patient: known to practice within the last 3 years Requesting Physician: Jeny Manley NP Primary Care Provider: Kelechi Galvan, DO Consult Narrative Reason for consult: f/u Narrative: Jing Gray a pleasant 49 year old female presents for evaluation of chronic middle and low back pain. longstanding hx of back pain unresponsive to >6 weeks of provider guided HEP, heat, ice, Tylenol, and NSAIDs. Pt finds benefit to current medication regimen and prior interventions. currently utilizing motrin, Tylenol, tizanidine without side effects. since last visit pain well controlled. pain today 2-3/10 aching increasing with standing, walking, sitting too long, activity, and in the AM. cc:: CC: Jeny Manley NP Review of Systems ROS Status of ROS 10 or more systems reviewed and unremark able except as noted in history and below Musculoskeletal Reports: back pain PFSH PFS Medical History In vitro fertilization ?Z31.83 - Encounter for assisted reproductive fertility procedure cycle (ICD- 10) Diabetes ?E11.9 - Type 2 diabetes mellitus without complications (ICD-10) HTN (hypertension) ?I10 - Essential (primary) hypertension (ICD-10) Surgical History History of dilation and curettage ?Z98.890 - Other specified postprocedural states (ICD-10) History of tubal ligation ?Z98.51 - Tubal ligation status (ICD-10) History of hysteroscopy ?Z98.890 - Other specified postprocedural states (ICD-10) Previous section ?Z98.891 - History of uterine scar from previous surgery (ICD-10) History of fasciotomy ?Z98.890 - Other specified postprocedural states (ICD-10) History of laparoscopy ?Z98.890 - Other specified postprocedural states (ICD-10) Meds Home Medications and Allergies Home Medications ?Medication ?Instructions ?Recorded ?Confirmed ?Type atenolol 50 mg tablet 50 mg PO DAILY 03/09/23 11/27/23 History dapagliflozin propanediol 5 mg 5 mg PO DAILY 03/09/23 11/27/23 History tablet (Farxiga) dulaglutide 4.5 mg/0.5 mL 4.5 mg subcut QWEEK 03/09/23 11/27/23 History subcutaneous pen injector (Trulicity) furosemide 20 mg tablet 20 mg PO DAILY 03/09/23 11/27/23 History lisinopril 5 mg tablet 5 mg PO DAILY 03/09/23 11/27/23 History metformin 1,000 mg tablet 1,000 mg PO BID 03/09/23 11/27/23 History naproxen 500 mg tablet 500 mg PO BID 03/09/23 11/27/23 History potassium chloride 10 mEq 10 meq PO DAILY 03/09/23 11/27/23 History tablet,extended release (Klor-Con) tizanidine 4 mg tablet (Zanaflex) 4 mg PO DAILY PRN spasm 03/09/23 11/27/23 History diazepam 10 mg tablet 10 mg PO 11/27/23 History tizanidine 4 mg capsule See Rx Instructions .Route 10/14/24 Rx .COMPLEX PRN muscle spasticity #90 caps tizanidine 4 mg tablet See Rx Instructions .Route 11/26/24 Rx .COMPLEX PRN muscle spasticity #225 tabs Allergies Allergy/AdvReac Type Severity Reaction Status Date / Time Penicillins Allergy Rash Verified 11/27/23 08:08 Exam Constitutional Documenting provider has reviewed patient's vital signs: yes Common normals: no apparent distress, oriented x3, healthy appearing, alert and well nourished General appearance: cooperative HENMT Common normals: normocephalic, hearing grossly normal bilaterally and moist oral mucous membranes Head and scalp: normocephalic Eye Common normals: PERRL Pupil: PERRL Neck & C-Spine Common normals: full ROM General: normal visual inspection Chest Common normals: inspection of chest normal Respiratory Common normals: normal respiratory effort, no retractions and no use of accessory muscles Back & Pelvis Thoracic spine/upper back: thoracic ROM normal and pain with ROM; no thoracic spinal tenderness, no paraspinal muscle tenderness and no paraspinal muscle spasm Lumbar spine/lower back: lumbar ROM normal; no pain with ROM, no paraspinal muscle tenderness and no paraspinal muscle spasm Sacroiliac joints: SI joints normal Other: mildly positive facet loading in thoracic spine, nontender Neuro Common normals: oriented x3, CN's II-XII intact bilaterally, moves all extremities, no focal motor deficits, no sensory deficits noted and deep tendon reflexes 2+ bilaterally Sensorium/orientation: alert Motor exam: strength 5/5 throughout and no movement abnormalities noted Psych Common normals: mental status grossly normal, thought process normal, cooperative, affect normal, speech normal and activity/motor behavior normal Speech: normal speech Thought process: normal thought process Results Additional Findings Additional findings: If on a controlled substance or opioids, I have checked an [place]AR[place] report on this patient and there are no aberrancies noted in the prescribing history.??If on a controlled substance or opioid a drug screen was completed and reviewed within the last year, and if there has not been a drug screen completed we ordered one today to monitor higher risk, state monitored pain medication use. As part of providing excellent, safe, comprehensive care, the following was completed at our patient's visit: 1. A medication reconciliation and review to ensure accurate knowledge of current/active medications, including asking our patients to inform us about any [id number] medications or herbal remedies/nutritional supplements/alternative remedies. 2. A review to specifically ensure our patients have had annual screening for screening for depression, screening for tobacco use, and screening for unhealthy alcohol use. For concerning screenings had a discussion with the patient, provided patient education, and recommended follow-up with primary care provider when appropriate. If patient noted with a risk of falling, they received education on strength, gait, and balance training to prevent future risk of falling. Portions of this note may have been carried over from the previous visit and updated as appropriate. Please note this office utilizes paper charting in addition to the electronic medical record. A list of current medications, vitals, and PMH is available there as the clinical staff outside of myself do not have access to [employer] charting during the clinic day operations. As part of providing quality comprehensive care the current medications, vitals, and PMH were reviewed in the paper chart. Assessment and Plan Assessment and Plan (1) Thoracic spondylosis: (2) Lumbar spondylosis: (3) Chronic myofascial pain: Plan 49 year old female presents for evaluation of chronic back pain secondary to spondylosis, unresponsive to >6 weeks of provider guided HEP, heat, ice, tylenol, NSAIDs. finds benefit to current medication without side effects. continue HEP and hearing care practitioner PRN. continue current medications. f/u 3 months, sooner if needed
== END 2024-12-04 07:39 | disposition home or self-care (01) ==
PROVIDERS: PCP Internal Medicine; Visit Provider Nurse Practitioner
DX: M47.816 Spondylosis without myelopathy or radiculopathy, lumbar region (principal); M47.814 Spondylosis without myelopathy or radiculopathy, thoracic region; M79.18 Myalgia, other site
CPT/HCPCS: G0463

== ENCOUNTER 2024-12-17 08:02 | Outpatient (OUT) | payer BC, OTHER, SELFPAY ==
--- OUTSIDE RECORDS SUMMARY | 2024-12-17 08:22 | XMS_ITS | CCD ---
Author Organization [facility] [employer] Care Team Providers Care Cream Dumper Name Role Phone Kelechi Galvan Unavailable COLE, [...] Penicillin G Drug Allergy pt doesn't remember [facility] Other (2 sources) Penicillins Drug allergy (disorder) 3 [facility] Repository (18 sources) Doxycycline Drug Allergy 4 Unknown, Unknown Reaction [facility] (2 sources) Penicillin Drug Allergy Unknown [facility] Other (9 sources) Penicillin G Benzathine & Proc Drug allergy 7 Unknown [facility] Other (2 sources) patient allergy list reviewed by nurse or physicia Propensity to adverse reactions 4 Comment:Done [facility] Other (2 sources) Allergies Reconciled Propensity to adverse reactions Unknown [facility] Other (7 sources) Penicillin G Benzathine Allergy to substance 4 Unknown Reaction [facility] Comment on above: Onset Date: 12/22/19 07 [...] for 30 Active take 1 tablet by leroa th every eight hours tiZANidine HCl 4 [...] eye(s) three times daily as needed Maxitrol 3.5-33421-5.1 2 drops into affected eye Ophthalmic Three times a day for 7 days Sep, Not-Taking/PRN Start: 09-13-2020 take 2 drop(s) into the eye(s) three times daily Maxitrol 3.5-21121-9.1 2 drops into affected eye Ophthalmic Three times a day for 7 days Sep, Not-Taking Start: 09-13-2020 take 2 drop(s) into the eye(s) three times daily Maxitrol 3.5-48326-0.1 2 drops into affected eye Ophthalmic Three [...] High risk drug monitoring status; 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] Episodic Other [...] Basophils (Bld) [#/Vol] Automated basophil count 0.0-0.1 [facility] Basophils/100 WBC Auto (Bld) on 10-09-2024 Basophils/100 WBC (Bld) Automated basophil % 0.2-2.0 [facility] Cholesterol in LDL Calc [Mas s/Vol]on 10-09-2024 Cholesterol in LDL [Mass/Vol] Cholesterol in LDL [Mass/volume] in Serum or Plasma by calculation [facility] Comment on above: <100 mg/dl [id number] 0-129 mg/dl NEAR OR ABOVE [id number] mg/dl BORDERLINE [id number] mg/dl HIGH>190 mg/dl VERY HIGH Cholesterol in VLDL Calc [Ma ss/Vol]on 10-09-2024 Cholesterol in VLDL [Mass/Vol] Cholesterol in VLDL [Mass/volume] in Serum or Plasma by calculation [facility] Eosinophils/100 WBC Auto (Bl d)on 10-09-2024 Eosinophils/100 WBC (Bld) Automated eosinophil % 0.9-7.0 [facility] Erythrocyte distribution wid th Auto (RBC) [Ratio]on 10-09-2024 Erythrocyte distribution width (RBC) [Ratio] Erythrocyte distribution width [Ratio] by Automated count 11.0-15.0 [facility] Estimated glomerular filtrat ion rate (GFR) non- Americanon 10-09-2024 GFR/1.73 sq M.predicted among non-blacks MDRD (S/P/Bld) [Vol rate/Area] Estimated glomerular filtration rate (GFR) non- >=60 mL/min/1.73m 2 [facility] Globulin Calc (S) [Mass/Vol] on 10-09-2024 Globulin (S) [Mass/Vol] Serum globulin measurement by calculation (mass/volume) [facility] Glucose mean value [Mass/vol ume] in Blood Estimated from glycated hemoglobinon 10-09-2024 Average glucose Estimated from glycated hemoglobin (Bld) [Mass/Vol] Glucose mean value [Mass/volume] in Blood Estimated from glycated hemoglobin [facility] Hematocrit Auto (Bld) [Volum e fraction]on 10-09-2024 Hematocrit (Bld) [Volume fraction] Hematocrit [Volume Fraction] of Blood by Automated count 36.0-48.0 [facility] Hemoglobin A1c percentageon 10-09-2024 HbA1c (Bld) [Mass fraction] Hemoglobin A1c percentage High 4.5-6.2 [facility] Comment on above: ADA RECOMMENDED LIMI T 4.0 - 6.0ADA THERAPEUTIC TARGET < 7.0ACTION SUGGESTED> 7.0 Hemoglobin [Mass/volume] in Bloodon 10-09-2024 Hemoglobin (Bld) [Mass/Vol] Hemoglobin [Mass/volume] in Blood 12.0-16.0 [facility] Laboratory - Chemistry and C hemistry - challengeon 10-09-2024 Albumin [Mass/Vol] 3.9 g/dL 3.4-5.0 [facility] ALP [Catalytic activity/Vol] 98 U/L 46-116 [facility] ALT [Catalytic activity/Vol] 22 U/L 14-59 [facility] AST [Catalytic activity/Vol] 17 U/L 15-37 [facility] Bilirubin [Mass/Vol] 0.9 mg/dL 0.2-1.0 [facility] Calcium [Mass/Vol] 9.6 mg/dL 8.5-10.1 [facility] Chloride [Moles/Vol] 103 mmol/L 98-107 [facility] Cholesterol [Mass/Vol] 185 mg/dL <=200 [facility] Cholesterol in HDL [Mass/Vol] 80 mg/dL High 40-60 [facility] Comment on above: > or =60 mg/dl - LOW CARDIOVASCULAR RISK<40 mg/dl - HIGH CARDIOVASCULAR RISK CO2 [Moles/Vol] 27.6 mmol/L 21.0-32.0 [facility] Creatinine [Mass/Vol] 0.84 mg/dL 0.55-1.02 [facility] GFR/1.73 sq M.predicted MDRD (S/P/Bld) [Vol rate/Area] mL/min/{1.73_m2} >=60 mL/min/1.73m 2 [facility] Glucose [Mass/Vol] 156 mg/dL High 74-106 [facility] Potassium [Moles/Vol] 4.3 mmol/L 3.5-5.1 [facility] Protein [Mass/Vol] 7.7 g/dL 6.4-8.2 [facility] Sodium [Moles/Vol] 140 mmol/L 136-145 [facility] Triglyceride [Mass/Vol] 68 mg/dL <=150 [facility] TSH Qn 4.409 m[IU]/L High 0.358-3.740 [facility] Urea nitrogen [Mass/Vol] 11.0 mg/dL 7.0-18.0 [facility] Urea nitrogen/Creatinine [Mass ratio] 13.1 mg/mg [facility] Laboratory - Hematology and Cell countson 10-09-2024 Immature granulocytes/100 WBC (Bld) 0.5 % 0.0-0.5 [facility] Leukocytes [#/volume] correc kendra for nucleated erythrocytes in Blood by Automated counon 10-09-2024 WBC corrected for nucl RBC Auto (Bld) [#/Vol] Leukocytes [#/volume] corrected for nucleated erythrocytes in Blood by Automated coun 4.0-11.0 [facility] Lymphocytes Auto (Bld) [#/Vo l]on 10-09-2024 Lymphocytes (Bld) [#/Vol] Lymphocytes [#/volume] in Blood by Automated count 1.2-3.8 [facility] Lymphocytes/100 WBC Auto (Bl d)on 10-09-2024 Lymphocytes/100 WBC (Bld) Lymphocytes/100 leukocytes in Blood by Automated count 20.5-60.0 [facility] MCH Auto (RBC) [Entitic mass ]on 10-09-2024 MCH (RBC) [Entitic mass] MCH [Entitic mass] by Automated count 26.7-34.0 [facility] MCHC Auto (RBC) [Mass/Vol]on 10-09-2024 MCHC (RBC) [Mass/Vol] MCHC [Mass/volume] by Automated count 29.9-35.2 [facility] MCV Auto (RBC) [Entitic vol] on 10-09-2024 MCV (RBC) [Entitic vol] MCV [Entitic volume] by Automated count 81.0-99.0 [facility] Microalbumin [Mass/volume] i n Urineon 10-09-2024 Albumin DL <= 20 mg/L (U) [Mass/Vol] Microalbumin [Mass/volume] in Urine <=30.0 [facility] Monocytes Auto (Bld) [#/Vol] on 10-09-2024 Monocytes (Bld) [#/Vol] Automated blood monocyte count High 0.3-0.8 [facility] Monocytes/100 WBC Auto (Bld) on 10-09-2024 Monocytes/100 WBC (Bld) Automated monocyte % 1.7-12.0 [facility] Neutrophils Auto (Bld) [#/Vo l]on 10-09-2024 Neutrophils (Bld) [#/Vol] Neutrophils [#/volume] in Blood by Automated count High 1.4-6.5 [facility] Neutrophils/100 WBC Auto (Bl d)on 10-09-2024 Neutrophils/100 WBC (Bld) Automated neutrophil % 43.0-75.0 [facility] No Panel Informationon 10-09 Eosinophils # (Auto) 0.3 10 3/uL 0.0-0.7 [facility] Immature Granulocyte # (Auto) 0.05 10 3/uL High 0.00-0.03 [facility] Prolactin 37.7 ng/mL Abnormal 4.8-33.4 [facility] Comment on above: Performed at: [facility] [address] [id number] Director: Joshua Jordan PhD, Phone: [phone] Urine Random Creatinine 160.10 mg/dL 20.00-300.00 [facility] Platelet mean volume Auto (B ld) [Entitic vol]on 10-09-2024 Platelet mean volume (Bld) [Entitic vol] Platelet mean volume [Entitic volume] in Blood by Automated count Low 9.5-13.5 [facility] Platelets Auto (Bld) [#/Vol] on 10-09-2024 Platelets (Bld) [#/Vol] Platelets [#/volume] in Blood by Automated count 150-450 [facility] RBC Auto (Bld) [#/Vol]on RBC (Bld) [#/Vol] Erythrocytes [#/volume] in Blood by Automated count 4.20-5.40 [facility] Serum or plasma albumin/glob ulin mass ratioon 10-09-2024 Albumin/Globulin [Mass ratio] Serum or plasma albumin/globulin mass ratio [facility] Serum or plasma anion gap de terminationon 10-09-2024 Anion gap [Moles/Vol] Serum or plasma anion gap determination [facility] Serum or plasma total choles terol/high density lipoprotein (HDL) cholesterol mass erika 10-09-2024 Cholesterol.total/Ch olesterol in HDL [Mass ratio] Serum or plasma total cholesterol/high density lipoprotein (HDL) cholesterol mass rat [facility] Comment on above: 3.3 - 4.4 LOW RISK4. 4 - 7.1 AVERAGE RISK7.1 - 11.0 MODERATE RISK>11.0 HIGH RISK Urine microalbumin/creatinin e mass ratioon 10-09-2024 Albumin/Creatinine DL <= 20 mg/L (U) [Mass ratio] Urine microalbumin/creatin ine mass ratio 0.0-29.9 [facility] Comment on above: NO MICROALBUMINURIA 0-29 MG/GCLINICAL MICROALBUMINURIA 30-300 MG/GMACROALBUMINURIA >300 MG/G XR hand RT min 3V*on 023 XR hand RT min 3V* [facility] [address] [address] XRay Report Signed Patient: Jing Gray MR#: [id number] 1 : 1975 Acct:[id number] Age/Sex: 47 / F ADM Date: 01/11/23 Loc: XDUCLY Room: Type: [facility] Attending Dr: Angélica FELIZ Copies to: [...] Blake Marino M.D.01/11/2023 6:08 PM Dictation Location: [place] [address] Transcribed By: [facility] 01/11/231807 Dictated By: Blake Marino DO 01/11/231806 Signed By: 01/11/231807 [facility] XR hand RT min 3V* [facility] [place] Other XR hand RT min 3V* [facility] [employer] Other XR hand RT min 3V* [address] [place] [address] [facility] Other XR hand RT min 3V* [place] [address] [facility] Other XR hand RT min 3V* XRay Report [facility] Other XR hand RT min 3V* Signed [facility] Other XR hand RT min 3V* Patient: Jing Gray MR#: [id number] [facility] Other XR hand RT min 3V* 1 [facility] Other XR hand RT min 3V* : 1975 Acct:[id number] [facility] Other XR hand RT min 3V* Age/Sex: 47 / F ADM Date: 01/11/23 [facility] Other XR hand RT min 3V* Loc: XDUCLY Room: Type: REG CLI [facility] Other XR hand RT min 3V* Attending Dr: Angélica FELIZ [facility] Other XR hand RT min 3V* Copies to: TRINI Alvarado [facility] Other XR hand RT min 3V* Ordering Provider: TRINI Alvarado [facility] Other XR hand RT min 3V* Date of Service: 01/11/23 [facility] Other XR hand RT min 3V* XR/XR hand RT min 3V*: RIGHT HAND INJURY [facility] Other XR hand RT min 3V* 3 views right hand plain film [facility] Other XR hand RT min 3V* COMPARISON: None [facility] Other XR hand RT min 3V* HISTORY: Fourth and fifth metacarpal injury [facility] Other XR hand RT min 3V* ACUTE FINDINGS: None [facility] Other XR hand RT min 3V* DEGENERATIVE CHANGE: Unremarkable [facility] Other XR hand RT min 3V* SOFT TISSUE FINDINGS: Unremarkable [facility] Other XR hand RT min 3V* JOINT EFFUSION: None [facility] Other XR hand RT min 3V* POSTOP CHANGES: None [facility] Other XR hand RT min 3V* BONY MINERALIZATION: Adequate [facility] Other XR hand RT min 3V* XR/XR hand RT min 3V* [facility] Other XR hand RT min 3V* IMPRESSION: No acute findings [facility] Other XR hand RT min 3V* Impression dictated by: Blake Marino M.D.01/11/2023 6:08 PM [facility] Other XR hand RT min 3V* Dictation Location: [address] [place] Other XR hand RT min 3V* Transcribed By: PWS 01/11/23 180 [facility] Other XR hand RT min 3V* Dictated By: Blake Marino DO 01/11/231806 [facility] Other XR hand RT min 3V* Signed By: [facility] Other XR hand RT min 3V* 01/11/[address] [place] [address] [facility] Other PROLACTINon 01-06-2023 Prolactin 34.5 ng/mL Critically high 4.8-23.3 [facility] Comment on above: Performed By: #### P ROLAC #### [facility] [address] [address] [address] Digna Thomas CBC AUTO DIFFon 01-05-2023 BASO # 0.1 103/ul Normal 0.0-0.1 [facility] Comment on above: Performed By: #### C BC ####[facility] [address] [place] [address]Dr. Digna Thomas Basophils/100 WBC (Bld) 0.8 % Normal 0.2-2.0 [facility] Comment on above: Performed By: #### C BC ####[facility] [address] [place] [id number]. Digna Thomas EO # 0.5 103/ul Normal 0.0-0.7 [facility] Comment on above: Performed By: #### C BC ####[facility] [address] [place] [address]Dr. Digna Thomas Eosinophils/100 WBC (Bld) 5.0 % Normal 0.9-7.0 [facility] Comment on above: Performed By: #### C BC ####[facility] [address] [place] [address]Dr. Digna William Erythrocyte distribution width (RBC) [Ratio] 13.0 % Normal 11.0-15.0 [facility] Comment on above: Performed By: #### C BC ####[facility] [address] [place] [address]Dr. Digna Thomas Hematocrit (Bld) [Volume fraction] 44.6 % Normal 36.0-48.0 [facility] Comment on above: Performed By: #### C BC ####[facility] [address] [place], [place] [address]Dr. Digna Thomas Hemoglobin (Bld) [Mass/Vol] 14.4 g/dL Normal 12.0-16.0 [facility] Comment on above: Performed By: #### C BC ####[facility] [address] [place], [place] [address]Dr. Digna Thomas IG # 0.05 10e3/ul Critically high 0.00-0.03 [facility] Comment on above: Performed By: #### C BC ####[facility] [address] [place], [place] [address]Dr. Digna Thomas IG % 0.5 % Normal 0.0-0.5 [facility] Comment on above: Performed By: #### C BC ####[facility] [address] [place], [place] [address]Dr. Digna Thomas LYMPH # 2.3 103/ul Normal 1.2-3.8 [facility] Comment on above: Performed By: #### C BC ####[facility] [address] [place], [place] [address]Dr. Digna Thomas Lymphocytes/100 WBC (Bld) 23.0 % Normal 20.5-60.0 [facility] Comment on above: Performed By: #### C BC ####[facility] [address] [place], [place] [address]Dr. Digna Thomas MANUAL DIFF REQ NO Normal [facility] Comment on above: Performed By: #### C BC ####[facility] [address] [place] [address]DrNile Digna William MCH (RBC) [Entitic mass] 28.3 pg Normal 26.7-34.0 [facility] Comment on above: Performed By: #### C BC ####[facility] [address] [place] [address]DrNile Thomas MCHC (RBC) [Mass/Vol] 32.3 g/dL Normal 29.9-35.2 [facility] Comment on above: Performed By: #### C BC ####[facility] [address] [place] [address]DrNile Thomas MCV (RBC) [Entitic vol] 87.8 fL Normal 81.0-99.0 [facility] Comment on above: Performed By: #### C BC ####[facility] [address] [place], [place] [address]DrNile Thomas MONO # 0.8 103/ul Normal 0.3-0.8 [facility] Comment on above: Performed By: #### C BC ####[facility] [address] [place], [place] [address]DrNile Thomas Monocytes/100 WBC (Bld) 7.9 % Normal 1.7-12.0 [facility] Comment on above: Performed By: #### C BC ####[facility] [address] [place], [place] [address]DrNile Thomas NEUT # 6.3 103/ul Normal 1.4-6.5 [facility] Comment on above: Performed By: #### C BC ####[facility] [address] [place], [place] [address]DrNile Thomas Neutrophils/100 WBC (Bld) 62.8 % Normal 43.0-75.0 [facility] Comment on above: Performed By: #### C BC ####[facility] [address] [place], [place] [address]DrNile Thomas Platelet mean volume (Bld) [Entitic vol] 9.9 fL Normal 9.5-13.5 [facility] Comment on above: Performed By: #### C BC ####[facility] [address] [place] [id number]. Digna Thomas PLT 223 103/ul Normal 150-450 [facility] Comment on above: Performed By: #### C BC ####[facility] [address] [place] [id number]. Digna Thomas RBC 5.08 106/ul Normal 4.20-5.40 [facility] Comment on above: Performed By: #### C BC ####[facility] [address] [place] [id number]. Digna Thomas WBC 10.0 103/ul Normal 4.0-11.0 [facility] Comment on above: Performed By: #### C BC ####[facility] [address] [place] [id number]. Digna Thomas LIPID PROFILEon 01-05-2023 CHOL-HDL RATIO NORM SEE BELOW Normal [facility] Comment on above: Result Comment: 3.3 - 4.4 LOW RISK 4.4 - 7.1 AVERAGE RISK 7.1 - 11.0 MODERATE RISK >11.0 HIGH RISK Performed By: #### B MP, TSH, LIPID #### [facility] [address] [address] [address] Digna Thomas Cholesterol [Mass/Vol] 179 mg/dL Normal <=200 [facility] Comment on above: Performed By: #### B MP, TSH, LIPID #### [facility] [address] [address] [address] Digna Thomas Cholesterol in HDL [Mass/Vol] 55 mg/dL Normal 40-60 [facility] Comment on above: Performed By: #### B MP, TSH, LIPID #### [facility] [address] [address] [address] Digna Thomas Cholesterol in LDL [Mass/Vol] 103.8 mg/dL Normal [facility] Comment on above: Performed By: #### B MP, TSH, LIPID #### [facility] [address] [address] [address] Digna Thomas Cholesterol.total/Ch olesterol in HDL [Mass ratio] 3.3 {ratio} Normal [facility] Comment on above: Performed By: #### B MP, TSH, LIPID #### [facility] [address] [address] [address] Digna Thomas HDL NORMAL > or = 60 mg/dl - LOW CARDIOVASCULAR RISK <40 mg/dl - HIGH CARDIOVASCULAR RISK Normal [facility] Comment on above: Performed By: #### B MP, TSH, LIPID #### [facility] [address] [address] [address] Digna Thomas LDL CALC NORMAL SEE BELOW Normal [facility] Comment on above: Result Comment: <100 mg/dl OPTIMAL 100 - 129 mg/dl NEAR OR ABOVE OPTIMAL 130 - 159 mg/dl BORDERLINE HIGH 160 - 189 mg/dl HIGH >190 mg/dl VERY HIGH Performed By: #### B MP, TSH, LIPID #### [facility] [address] [address] [address] Digna Thomas Triglyceride [Mass/Vol] 101 mg/dL Normal <=150 [facility] Comment on above: Performed By: #### B MP, TSH, LIPID #### [facility] [address] [address] [address] Digna Thomas VLDL CALC 20.2 mg/dL Normal [facility] Comment on above: Performed By: #### B MP, TSH, LIPID #### [facility] [address] [place] [address] Dr. Digna Thomas PROF CHEM 8 (BAS METB)on Anion gap [Moles/Vol] 13.3 mmol/L Normal [facility] Comment on above: Performed By: #### B MP, TSH, LIPID #### [facility] [address] [address] [address] Digna Thomas Calcium [Mass/Vol] 9.4 mg/dL Normal 8.5-10.1 [facility] Comment on above: Performed By: #### B MP, TSH, LIPID #### [facility] [address] [address] [address] Digna Thomas Chloride [Moles/Vol] 104 mmol/L Normal 98-107 [facility] Comment on above: Performed By: #### B MP, TSH, LIPID #### [facility] [address] [address] [address] Digna Thomas CO2 [Moles/Vol] 27.1 mmol/L Normal 21.0-32.0 [facility] Comment on above: Performed By: #### B MP, TSH, LIPID #### [facility] [address] [address] [address] Digna Thomas Creatinine [Mass/Vol] 0.71 mg/dL Normal 0.55-1.02 [facility] Comment on above: Performed By: #### B MP, TSH, LIPID #### [facility] [address] [address] [address] Digna Thomas EGFR-AF SERBIAN >60 Normal >=60 [facility] Comment on above: Performed By: #### B MP, TSH, LIPID #### [facility] [address] [place] [address] Dr. Digna Thomas EGFR-NON AF SERBIAN >60 Normal >=60 [facility] Comment on above: Performed By: #### B MP, TSH, LIPID #### [facility] [address] [address] [address] Digna Thomas Glucose [Mass/Vol] 163 mg/dL Critically high 74-106 [facility] Comment on above: Performed By: #### B MP, TSH, LIPID #### [facility] [address] [address] [address] Digna Thomas Potassium [Moles/Vol] 4.4 mmol/L Normal 3.5-5.1 [facility] Comment on above: Performed By: #### B MP, TSH, LIPID #### [facility] [address] [address] [address] Digna Thomas Sodium [Moles/Vol] 140 mmol/L Normal 136-145 [facility] Comment on above: Performed By: #### B MP, TSH, LIPID #### [facility] [address] [address] [address] Digna Thomas Urea nitrogen [Mass/Vol] 15.0 mg/dL Normal 7.0-18.0 [facility] Comment on above: Performed By: #### B MP, TSH, LIPID #### [facility] [address] [address] [address] Digna Thomas Urea nitrogen/Creatinine [Mass ratio] 21.1 mg/mg Normal [facility] Comment on above: Performed By: #### B MP, TSH, LIPID #### [facility] [address] [address] [address] Digna Thomas TSHon 01-05-2023 TSH 3.955 uIU/mL Critically high 0.358-3.740 [facility] Comment on above: Performed By: #### B MP, TSH, LIPID #### [facility] [address] [address] [address] Digna Thomas XR CSPINE MIN 4 [...] by: FELIPE TRINH Date: 2022-11-04 08:02 Normal [facility] GLYCOHEMOGLOBIN A1Con 2022 ADA RECOMMENDATION SEE BELOW Normal [facility] Comment on above: Result Comment: ADA RECOMMENDED LIMIT 4.0 - 6.0 ADA THERAPEUTIC TARGET < 7.0 ACTION SUGGESTED > 7.0 Performed By: #### A 1C ####[facility] [address] [place] [id number]. Digna Thomas Glucose [Mass/Vol] 166 mg/dL Normal [facility] Comment on above: Performed By: #### A 1C ####[facility] [address] [place] [id number]. Digna Thomas HbA1c (Bld) [Mass fraction] 7.4 % Critically high 4.5-6.2 [facility] Comment on above: Performed By: #### A 1C ####[facility] [address] [place] [address]DrNile Thomas PROLACTINon 07-12-2022 Prolactin 48.0 ng/mL Critically high 4.8-23.3 [facility] Comment on above: Performed By: #### P ROLAC #### [facility] [address] [address] [address] Digna Thomas CBC AUTO DIFFon 07-11-2022 BASO # 0.1 103/ul Normal 0.0-0.1 [facility] Comment on above: Performed By: #### C BC ####[facility] [address] [place] [address]DrNile Thomas Basophils/100 WBC (Bld) 0.8 % Normal 0.2-2.0 [facility] Comment on above: Performed By: #### C BC ####[facility] [address] [place], [place] [address]DrNile Thomas EO # 0.7 103/ul Normal 0.0-0.7 [facility] Comment on above: Performed By: #### C BC ####[facility] [address] [place] [address]Dr. Digna Thomas Eosinophils/100 WBC (Bld) 5.8 % Normal 0.9-7.0 [facility] Comment on above: Performed By: #### C BC ####[facility] [address] [place] [address]DrNile Thomas Erythrocyte distribution width (RBC) [Ratio] 12.7 % Normal 11.0-15.0 [facility] Comment on above: Performed By: #### C BC ####[facility] [address] [place] [address]DrNile Thomas Hematocrit (Bld) [Volume fraction] 45.4 % Normal 36.0-48.0 [facility] Comment on above: Performed By: #### C BC ####[facility] [address] [place] [id number]. Digna Thomas Hemoglobin (Bld) [Mass/Vol] 15.3 g/dL Normal 12.0-16.0 [facility] Comment on above: Performed By: #### C BC ####[facility] [address] [place] [id number]. Digna Thomas IG # 0.04 10e3/ul Critically high 0.00-0.03 [facility] Comment on above: Performed By: #### C BC ####[facility] [facility] [address] [place] [id number]. Digna Thomas IG % 0.3 % Normal 0.0-0.5 [facility] Comment on above: Performed By: #### C BC ####[facility] [address] [place] [address]Dr. Digna Thomas LYMPH # 3.3 103/ul Normal 1.2-3.8 [facility] Comment on above: Performed By: #### C BC ####[facility] [address] [place] [id number]. Digna Thomas Lymphocytes/100 WBC (Bld) 28.1 % Normal 20.5-60.0 [facility] Comment on above: Performed By: #### C BC ####[facility] [address] [place] [id number]. Digna Thomas MANUAL DIFF REQ NO Normal [facility] Comment on above: Performed By: #### C BC ####[facility] [address] [place] [id number]. Digna Thomas MCH (RBC) [Entitic mass] 29.2 pg Normal 26.7-34.0 [facility] Comment on above: Performed By: #### C BC ####[facility] [address] [place] [id number]. Digna Thomas MCHC (RBC) [Mass/Vol] 33.7 g/dL Normal 29.9-35.2 [facility] Comment on above: Performed By: #### C BC ####[facility] [address] [place] [id number]. iDgna Thomas MCV (RBC) [Entitic vol] 86.6 fL Normal 81.0-99.0 [facility] Comment on above: Performed By: #### C BC ####[facility] [address] [place] [address]Dr. Digna Thomas MONO # 0.8 103/ul Normal 0.3-0.8 [facility] Comment on above: Performed By: #### C BC ####[facility] [address] [place] [id number]. Digna William Monocytes/100 WBC (Bld) 6.4 % Normal 1.7-12.0 [facility] Comment on above: Performed By: #### C BC ####[facility] [address] [place] [address]Dr. Digna Thomas NEUT # 6.9 103/ul Critically high 1.4-6.5 [facility] Comment on above: Performed By: #### C BC ####[facility] [address] [place], [place] [address]Dr. Digna Thomas Neutrophils/100 WBC (Bld) 58.6 % Normal 43.0-75.0 [facility] Comment on above: Performed By: #### C BC ####[facility] [address] [place], [place] [address]Dr. Digna Thomas Platelet mean volume (Bld) [Entitic vol] 10.0 fL Normal 9.5-13.5 [facility] Comment on above: Performed By: #### C BC ####[facility] [address] [place] [id number]. Digna William PLT 242 103/ul Normal 150-450 [facility] Comment on above: Performed By: #### C BC ####[facility] [address] [place], [place] [id number]. Digna William RBC 5.24 106/ul Normal 4.20-5.40 [facility] Comment on above: Performed By: #### C BC ####[facility] [address] [place], [place] [address]Dr. Digna Thomas WBC 11.8 103/ul Critically high 4.0-11.0 [facility] Comment on above: Performed By: #### C BC ####[facility] [address] [place] [address]Dr. Digna Thomas GLYCOHEMOGLOBIN A1Con 2021 ADA RECOMMENDATION SEE BELOW Normal [facility] Comment on above: Result Comment: ADA RECOMMENDED LIMIT 4.0 - 6.0 ADA THERAPEUTIC TARGET < 7.0 ACTION SUGGESTED > 7.0 Performed By: #### A 1C ####[facility] [address] [place] [address]Dr. Digna Thomas Glucose [Mass/Vol] 183 mg/dL Normal [facility] Comment on above: Performed By: #### A 1C ####[facility] [address] [place] [address]Dr. Digna Thomas HbA1c (Bld) [Mass fraction] 8.0 % Critically high 4.5-6.2 [facility] Comment on above: Performed By: #### A 1C ####[facility] Q[address] [place], [place] [address]Dr. Digna Thomas LIPID PROFILEon 07-11-2022 CHOL-HDL RATIO NORM SEE BELOW Normal [facility] Comment on above: Result Comment: 3.3 - 4.4 LOW RISK 4.4 - 7.1 AVERAGE RISK 7.1 - 11.0 MODERATE RISK >11.0 HIGH RISK Performed By: #### B MP, LIPID, TSH ####[facility] [address] [place] [address]Dr. Digna Thomas Cholesterol [Mass/Vol] 161 mg/dL Normal <=200 [facility] Comment on above: Performed By: #### B MP, LIPID, TSH ####[facility] [address] [place] [address]Dr. Digna Thomas Cholesterol in HDL [Mass/Vol] 51 mg/dL Normal 40-60 [facility] Comment on above: Performed By: #### B MP, LIPID, TSH ####[facility] [address] [place] [phone]. Digna Thomas Cholesterol in LDL [Mass/Vol] 86.2 mg/dL Normal [facility] Comment on above: Performed By: #### B MP, LIPID, TSH ####[facility] [address] [place] [address]Dr. Digna Thomas Cholesterol.total/Ch olesterol in HDL [Mass ratio] 3.2 {ratio} Normal [facility] Comment on above: Performed By: #### B MP, LIPID, TSH ####[facility] [address] [place] [address]Dr. Digna Thomas HDL NORMAL > or = 60 mg/dl - LOW CARDIOVASCULAR RISK <40 mg/dl - HIGH CARDIOVASCULAR RISK Normal [facility] Comment on above: Performed By: #### B MP, LIPID, TSH ####[facility] [address] [place] [address]Dr. Digna Thomas LDL CALC NORMAL SEE BELOW Normal [facility] Comment on above: Result Comment: <100 mg/dl OPTIMAL 100 - 129 mg/dl NEAR OR ABOVE OPTIMAL 130 - 159 mg/dl BORDERLINE HIGH 160 - 189 mg/dl HIGH >190 mg/dl VERY HIGH Performed By: #### B MP, LIPID, TSH ####[facility] [address] [place] [address]Dr. Digna Thomas Triglyceride [Mass/Vol] 119 mg/dL Normal <=150 [facility] Comment on above: Performed By: #### B MP, LIPID, TSH ####[facility] [address] [place] [address]Dr. Digna Thomas VLDL CALC 23.8 mg/dL Normal [facility] Comment on above: Performed By: #### B MP, LIPID, TSH ####[facility] [address] [place] [address]Dr. Digna Thomas MG MAMM SCREEN 3D JANE CADon 07-11-2022 MG MAMM SCREEN 3D JANE CAD Patient: JING GRAY Exam Date: 07/11/2022 : 1975 Gender:F Ordering : DR KELECHI GALVAN D.O. Admission #: [id number] Family : Order #: [id number] CLICK HERE TO VIEW EXAM RADIOLOGY REPORT [...] bladder cancer at age 51. LOCATION: [facility] BREAST COMPOSITION: Scattered areas fibroglandular density. [...] Cagle MD on 07/11/2022 at 10:14 Normal [facility] MICROALBUMIN, RAND URon 10-3 mALB 10.1 mg/L Normal <=30.0 [facility] Comment on above: Performed By: #### M ALBR #### [facility] [address] [place], [place] [address] Dr. Digna Thomas PROF CHEM 8 (BAS METB)on Anion gap [Moles/Vol] 10.6 mmol/L Normal [facility] Comment on above: Performed By: #### B MP, LIPID, TSH ####[facility] [address] [place], [place] [address]KdDr. Digna Thomas Calcium [Mass/Vol] 9.3 mg/dL Normal 8.5-10.1 [facility] Comment on above: Performed By: #### B MP, LIPID, TSH ####[facility] [address] [place] [address]Dr. Digna Thomas Chloride [Moles/Vol] 99 mmol/L Normal 98-107 [facility] Comment on above: Performed By: #### B MP, LIPID, TSH ####[facility] [address]otcio[address] [place] [address]Dr. Digna Thomas CO2 [Moles/Vol] 28.3 mmol/L Normal 21.0-32.0 [facility] Comment on above: Performed By: #### B MP, LIPID, TSH ####[facility] [address] [place], [place] [address]Dr. Digna Thomas Creatinine [Mass/Vol] 0.74 mg/dL Normal 0.55-1.02 [facility] Comment on above: Performed By: #### B MP, LIPID, TSH ####[facility] [address] [place], [place] [address]Dr. iDgna William EGFR-AF SERBIAN >60 Normal >=60 [facility] Comment on above: Performed By: #### B MP, LIPID, TSH ####[facility] [address] [place], [place] [address]Dr. Digna Thomas EGFR-NON AF SERBIAN >60 Normal >=60 [facility] Comment on above: Performed By: #### B MP, LIPID, TSH ####[facility] [address] [place] [address]Dr. Digna Thomas Glucose [Mass/Vol] 190 mg/dL Critically high 74-106 [facility] Comment on above: Performed By: #### B MP, LIPID, TSH ####[facility] [address] [place], [place] [address]Dr. Digna Thomas Potassium [Moles/Vol] 3.9 mmol/L Normal 3.5-5.1 [facility] Comment on above: Performed By: #### B MP, LIPID, TSH ####[facility] [address] [place] [address]Dr. Anajs Thomas Sodium [Moles/Vol] 134 mmol/L Critically low 136-145 [facility] Comment on above: Performed By: #### B MP, LIPID, TSH ####[facility] [address] [place], [place] [address]Bv. Digna Thomas Urea nitrogen [Mass/Vol] 13.0 mg/dL Normal 7.0-18.0 [facility] Comment on above: Performed By: #### B MP, LIPID, TSH ####[facility] [address] [place], [place] [address]Sx. Digna Thomas Urea nitrogen/Creatinine [Mass ratio] 17.6 mg/mg Normal [facility] Comment on above: Performed By: #### B MP, LIPID, TSH ####[facility] [address] [place], [place] [address]Ur. Digna Thomas TSHon 07-11-2022 TSH 4.084 uIU/mL Critically high 0.358-3.740 [facility] Comment on above: Performed By: #### B MP, LIPID, TSH #### [facility] [address] [place], [place] [address] Dr. Digna Thomas Vital Signs Date Time Vital Sign Value Performing Clinician Facility 10-27-2024 13:58-0500 Body height 165.1 cm [facility] 10-27-2024 13:58-0500 Body mass index (BMI) [Ratio] 49.4 kg/m2 [facility] 10-27-2024 13:58-0500 Body weight 134.71 kg [facility] 10-27-2024 13:58-0500 Diastolic blood pressure 79 mm[Hg] [facility] 10-27-2024 13:58-0500 Heart rate 83 /min [facility] 10-27-2024 13:58-0500 Respiratory rate 18 /min [facility] 10-27-2024 13:58-0500 SaO2% (BldA) [Mass fraction] 99 % [facility] 10-27-2024 13:58-0500 Systolic blood pressure 125 mm[Hg] [facility] 08-23-2024 08:40-0500 Body height 165.1 cm [facility] 08-23-2024 08:40-0500 Body mass index (BMI) [Ratio] 46 kg/m2 [facility] 08-23-2024 08:40-0500 Body weight 125.36 kg [facility] 08-23-2024 08:40-0500 Diastolic blood pressure 79 mm[Hg] [facility] 08-23-2024 08:40-0500 Heart rate 66 /min [facility] 08-23-2024 08:40-0500 Respiratory rate 16 /min [facility] 08-23-2024 08:40-0500 Systolic blood pressure 127 mm[Hg] [facility] 08-18-2024 12:29-0500 Body height 165.1 cm [facility] 08-18-2024 12:29-0500 Body mass index (BMI) [Ratio] 48.4 kg/m2 [facility] 08-18-2024 12:29-0500 Body temperature 98.8 [degF] [facility] 08-18-2024 12:29-0500 Body weight 132 kg [facility] 08-18-2024 12:29-0500 Diastolic blood pressure 73 mm[Hg] [facility] 08-18-2024 12:29-0500 Heart rate 76 /min [facility] 08-18-2024 12:29-0500 Respiratory rate 17 /min [facility] 08-18-2024 12:29-0500 SaO2% (BldA) [Mass fraction] 97 % [facility] 08-18-2024 12:29-0500 Systolic blood pressure 125 mm[Hg] [facility] 08-07-2024 13:26-0500 Body height 165.1 cm Antione Sugey DO Work Phone: [facility] 08-07-2024 13:26-0500 Body mass index (BMI) [Ratio] 45.43 kg/m2 Antione Sugey DO Work Phone: [facility] 08-07-2024 13:26-0500 Body weight 123.83 kg Antione Sugey DO Work Phone: [facility] 08-07-2024 13:26-0500 Diastolic blood pressure 74 mm[Hg] Antione Sugey DO Work Phone: [facility] 08-07-2024 13:26-0500 Heart rate 70 /min Antione Sugey DO Work Phone: [facility] 08-07-2024 13:26-0500 SaO2% (BldA) [Mass fraction] 97 % Antione Sugey DO Work Phone: [facility] 08-07-2024 13:26-0500 Systolic blood pressure 118 mm[Hg] Antione Sugey DO Work Phone: [facility] 07-22-2024 10:35-0500 Body height 165.1 cm [facility] 07-22-2024 10:35-0500 Body mass index (BMI) [Ratio] 44.1 kg/m2 [facility] 07-22-2024 10:35-0500 Body weight 120.25 kg [facility] 07-22-2024 10:35-0500 Diastolic blood pressure 95 mm[Hg] [facility] 07-22-2024 10:35-0500 Heart rate 74 /min [facility] 07-22-2024 10:35-0500 Respiratory rate 16 /min [facility] 07-22-2024 10:35-0500 Systolic blood pressure 164 mm[Hg] [facility] 06-21-2024 11:44-0400 Body height 165.1 cm [facility] 06-21-2024 11:44-0400 Body mass index (BMI) [Ratio] 42.3 kg/m2 [facility] 06-21-2024 11:44-0400 Body weight 115.26 kg [facility] 06-21-2024 11:44-0400 Diastolic blood pressure 78 mm[Hg] [facility] 06-21-2024 11:44-0400 Heart rate 71 /min [facility] 06-21-2024 11:44-0400 Respiratory rate 12 /min [facility] 06-21-2024 11:44-0400 Systolic blood pressure 129 mm[Hg] [facility] 04-16-2024 08:34-0400 Body height 165.1 cm [facility] 04-16-2024 08:34-0400 Body mass index (BMI) [Ratio] 40.3 kg/m2 [facility] 04-16-2024 08:34-0400 Body weight 109.99 kg [facility] 04-16-2024 08:34-0400 Diastolic blood pressure 81 mm[Hg] [facility] 04-16-2024 08:34-0400 Heart rate 71 /min [facility] 04-16-2024 08:34-0400 Respiratory rate 12 /min [facility] 04-16-2024 08:34-0400 Systolic blood pressure 117 mm[Hg] [facility] 01-27-2024 13:11-0400 Body height 165.1 cm [facility] 01-27-2024 13:11-0400 Body mass index (BMI) [Ratio] 42.9 kg/m2 [facility] 01-27-2024 13:11-0400 Body temperature 97.1 [degF] [facility] 01-27-2024 13:11-0400 Body weight 117.02 kg [facility] 01-27-2024 13:11-0400 Heart rate 64 /min [facility] 01-27-2024 13:11-0400 Respiratory rate 16 /min [facility] 01-27-2024 13:11-0400 SaO2% (BldA) [Mass fraction] 97 % [facility] 01-15-2024 08:41-0400 Body height 165.1 cm [facility] 01-15-2024 08:41-0400 Body mass index (BMI) [Ratio] 43 kg/m2 [facility] 01-15-2024 08:41-0400 Body weight 117.25 kg [facility] 01-15-2024 08:41-0400 Diastolic blood pressure 79 mm[Hg] [facility] 01-15-2024 08:41-0400 Heart rate 76 /min [facility] 01-15-2024 08:41-0400 Respiratory rate 12 /min [facility] 01-15-2024 08:41-0400 Systolic blood pressure 127 mm[Hg] [facility] 11-20-2023 12:57-0400 Body height 165.1 cm [facility] 11-20-2023 12:57-0400 Body mass index (BMI) [Ratio] 46.3 kg/m2 [facility] 11-20-2023 12:57-0400 Body weight 126.26 kg [facility] 11-20-2023 12:57-0400 Diastolic blood pressure 70 mm[Hg] [facility] 11-20-2023 12:57-0400 Systolic blood pressure 122 mm[Hg] [facility] 10-17-2023 09:00-0500 Body height 165.1 cm Kelechi Ball Other [facility] Other 10-17-2023 09:00-0500 Body mass index (BMI) [Ratio] 48.49 kg/m2 Kelechi Ball Other [facility] Other 10-17-2023 09:00-0500 Body weight 132.18 kg Kelechi Ball Other [facility] Other 10-17-2023 09:00-0500 Diastolic blood pressure 88 mm[Hg] Kelechi Ball Other [facility] Other 10-17-2023 09:00-0500 Respiratory rate 12 /min Kelechi Ball Other [facility] Other 10-17-2023 09:00-0500 Systolic blood pressure 138 mm[Hg] Kelechi Ball Other [facility] Other 09-22-2023 09:00-0500 Body height 165.1 cm Kelechi Ball Other [facility] 09-22-2023 09:00-0500 Body mass index (BMI) [Ratio] 50.25 kg/m2 Kelechi Ball Other [facility] Other 09-22-2023 09:00-0500 Body weight 136.99 kg Kelechi Ball Other [facility] Other 09-22-2023 09:00-0500 Body weight 136.98 kg [facility] 09-22-2023 09:00-0500 Diastolic blood pressure 85 mm[Hg] Kelechi Ball Other [facility] 09-22-2023 09:00-0500 Respiratory rate 12 /min Kelechi Ball Other [facility] Other 09-22-2023 09:00-0500 Systolic blood pressure 136 mm[Hg] Kelechi Ball Other [facility] 08-22-2023 08:30-0500 Body height 165.1 cm Kelechi Ball Other [facility] 08-22-2023 08:30-0500 Body mass index (BMI) [Ratio] 52.95 kg/m2 Kelechi Ball Other [facility] Other 08-22-2023 08:30-0500 Body weight 144.34 kg Kelechi Ball Other [facility] Other 08-22-2023 08:30-0500 Body weight 144.33 kg [facility] 08-22-2023 08:30-0500 Diastolic blood pressure 75 mm[Hg] Kelechi Ball Other [facility] 08-22-2023 08:30-0500 Respiratory rate 12 /min Kelechi Ball Other [facility] Other 08-22-2023 08:30-0500 Systolic blood pressure 115 mm[Hg] Kelechi Ball Other [facility] 05-26-2023 09:40-0400 Body height 165.1 cm Angélica Swann Other [facility] Other 05-26-2023 09:40-0400 Body mass index (BMI) [Ratio] 51.88 kg/m2 Angélica Hue Other [facility] Other 05-26-2023 09:40-0400 Body temperature 98 [degF] Angélica Swann Other [facility] Other 05-26-2023 09:40-0400 Body weight 141.43 kg Angélica Hue Other [facility] Other 05-26-2023 09:40-0400 Diastolic blood pressure 68 mm[Hg] Angélica Swann Other [facility] Other 05-26-2023 09:40-0400 Respiratory rate 18 /min Angélica Swann Other [facility] Other 05-26-2023 09:40-0400 SaO2% (BldA) [Mass fraction] 96 % Angélica Swann Other [facility] Other 05-26-2023 09:40-0400 Systolic blood pressure 110 mm[Hg] Angélica Hue Other [facility] Other 02-28-2023 13:15-0400 Body height 165.1 cm Kelechi Ball Other [facility] Other 02-28-2023 13:15-0400 Body mass index (BMI) [Ratio] 52.55 kg/m2 Kelechi Ball Other [facility] Other 02-28-2023 13:15-0400 Body weight 143.25 kg Kelechi Ball Other [facility] Other 02-28-2023 13:15-0400 Diastolic blood pressure 77 mm[Hg] Kelechi Ball Other [facility] Other 02-28-2023 13:15-0400 Respiratory rate 12 /min Kelechi Ball Other [facility] Other 02-28-2023 13:15-0400 Systolic blood pressure 118 mm[Hg] Kelechi Ball Other [facility] Other 01-16-2023 12:30-0400 Body height 165.1 cm Kelechi Ball Other [facility] Other 01-16-2023 12:30-0400 Body mass index (BMI) [Ratio] 52.28 kg/m2 Kelechi Ball Other [facility] Other 01-16-2023 12:30-0400 Body weight 142.52 kg Kelechi Ball Other [facility] Other 01-16-2023 12:30-0400 Diastolic blood pressure 72 mm[Hg] Kelechi Ball Other [facility] Other 01-16-2023 12:30-0400 Respiratory rate 16 /min Kelechi Ball Other [facility] Other 01-16-2023 12:30-0400 Systolic blood pressure 147 mm[Hg] Kelechi Ball Other [facility] Other 01-11-2023 18:10-0400 Body height 165.1 cm Angélica Swann Other [facility] Other 01-11-2023 18:10-0400 Body mass index (BMI) [Ratio] 52.41 kg/m2 Angélica Mcqueenmond Other [facility] Other 01-11-2023 18:10-0400 Body temperature 99.6 [degF] Angélica Hue Other [facility] Other 01-11-2023 18:10-0400 Body weight 142.88 kg Angélica Hue Other [facility] Other 01-11-2023 18:10-0400 Diastolic blood pressure 64 mm[Hg] Angélica Hue Other [facility] Other 01-11-2023 18:10-0400 Respiratory rate 20 /min Angélica Hue Other [facility] Other 01-11-2023 18:10-0400 SaO2% (BldA) [Mass fraction] 96 % Angélica Swann Other [facility] Other 01-11-2023 18:10-0400 Systolic blood pressure 117 mm[Hg] Angélica Hue Other [facility] Other 10-18-2022 12:00-0500 Body height 165.1 cm Kelechi Ball Other [facility] Other 10-18-2022 12:00-0500 Body mass index (BMI) [Ratio] 52.31 kg/m2 Kelechi Ball Other [facility] Other 10-18-2022 12:00-0500 Body weight 142.61 kg Kelechi Ball Other [facility] Other 10-18-2022 12:00-0500 Diastolic blood pressure 84 mm[Hg] Kelechi Galvan Other [facility] Other 10-18-2022 12:00-0500 Respiratory rate 12 /min Kelechi Galvan Other [facility] Other 10-18-2022 12:00-0500 Systolic blood pressure 122 mm[Hg] Kelechi Galvan Other [facility] Other Encounters Encounter Date Encounter Type Care Provider Facility Start: 10-27-2024 End: 10-27-2024 ambulatory [facility] Work Phone: Start: 10-27-2024 End: 10-27-2024 Patient encounter procedure [facility] Work Phone: Start: 10-09-2024 Non-patient / Non-visit [facility] Work Phone: Start: 08-29-2024 Non-patient / Non-visit [facility] Work Phone: Start: 08-23-2024 End: 08-23-2024 Encounter for general adult medical examination without abnormal findings [facility] Start: 08-23-2024 End: 08-23-2024 Patient encounter procedure [facility] Work Phone: Start: 08-21-2024 Patient encounter status [facility] Start: 08-18-2024 End: 08-18-2024 Patient encounter procedure [facility] Work Phone: Start: 08-07-2024 End: 08-07-2024 Bamboo flowsheet Antione Sugey DO Work Phone: [employer] [address] Start: 08-07-2024 End: 08-07-2024 Bamboo flowsheet Antione Sugey DO Work Phone: [employer] [address] Start: 08-07-2024 End: 08-07-2024 Office outpatient visit 25 minutes Antione Madera DO Work Phone: [facility] [address] Comment on above: REBA (obstructive sle ep apnea) (Primary Dx); Hypoxia; Hypersomnia; Obesity due to excess calories, unspecified class, unspecified whether serious comorbidity present; Snoring Start: 08-07-2024 End: 08-07-2024 ambulatory ANTIONE MADERA Not Available Start: 07-22-2024 End: 07-22-2024 ambulatory [facility] Work Phone: Start: 07-22-2024 End: 07-22-2024 Patient encounter procedure [facility] Work Phone: Start: 06-21-2024 End: 06-21-2024 ambulatory [facility] Work Phone: Start: 06-21-2024 End: 06-21-2024 Patient encounter procedure [facility] Work Phone: Start: 04-16-2024 End: 04-16-2024 ambulatory [facility] Work Phone: Start: 04-16-2024 End: 04-16-2024 Patient encounter procedure [facility] Work Phone: Start: 01-27-2024 End: 01-27-2024 ambulatory [facility] Work Phone: Start: 01-27-2024 End: 01-27-2024 Patient encounter procedure [facility] Jack[facility] Work Phone: Start: 01-15-2024 End: 01-15-2024 ambulatory [facility] Work Phone: Start: 01-15-2024 End: 01-15-2024 Patient encounter procedure [facility] Work Phone: Start: 11-27-2023 End: 11-28-2023 ambulatory Joe Becerra MD Facility:[facility] Start: 11-20-2023 Non-patient / Non-visit [facility] [address] [employer] Work Phone: Start: 10-27-2023 End: 10-27-2023 ambulatory [facility] Work Phone: Start: 10-27-2023 End: 10-27-2023 Patient encounter procedure [facility] Work Phone: Start: 10-20-2023 End: 10-20-2023 ambulatory Kelechi Ball Other [facility] Other Start: 10-20-2023 Encounter by alysha lizarraga Kelechi Galvan [facility] Start: 10-17-2023 End: 10-17-2023 ambulatory Kelechi Ball Other [facility] Other Start: 10-17-2023 Office outpatient vi sit 15 minutes Kelechi Ball [facility] Start: 09-22-2023 End: 09-22-2023 ambulatory Kelechi Ball Other [facility] Other Start: 09-22-2023 Office outpatient vi sit 15 minutes Kelechi Ball [facility] Start: 09-22-2023 End: 09-22-2023 Patient encounter procedure [facility] Work Phone: Start: 09-08-2023 End: 09-08-2023 ambulatory Kelechi Ball Other [facility] Other Start: 09-08-2023 Telephone encounter Kelechi Ball [facility] Start: 08-28-2023 End: 08-28-2023 ambulatory Kelechi Ball Other [facility] Other Start: 08-28-2023 Telephone encounter Kelechi Ball [facility] Start: 08-26-2023 End: 08-26-2023 ambulatory Kelechi Ball Other [facility] Other Start: 08-26-2023 Telephone encounter Kelechi GRANDA [facility] Start: 08-22-2023 End: 08-22-2023 ambulatory Kelechi Galvan Other [facility] Other Start: 08-22-2023 Encounter for genera l adult medical examination without abnormal findings Kelechi Galvan [facility] Start: 08-22-2023 Periodic preventive med est patient 40-64yrs Kelechi Galvan [facility] Start: 08-22-2023 End: 08-22-2023 Patient encounter procedure [facility] Work Phone: Start: 05-26-2023 End: 05-26-2023 ambulatory Angélica Swann Other [facility] Other Start: 05-26-2023 Office outpatient vi sit 15 minutes Angélica Swann [facility] Start: 04-18-2023 End: 04-18-2023 ambulatory Kelechi Galvan Other [facility] Other Start: 04-18-2023 Office outpatient vi sit 15 minutes Kelechi Galvan [facility] Start: 02-28-2023 End: 02-28-2023 ambulatory Kelechi Galvan Other [facility] Other Start: 02-28-2023 Office outpatient vi sit 15 minutes Kelechi Galvan [facility] Start: 01-19-2023 End: 01-19-2023 ambulatory Kelechi Galvan Other [facility] Other Start: 01-19-2023 Telephone encounter Kelechi GRANDA [facility] Start: 01-16-2023 End: 01-16-2023 ambulatory Kelechi Galvan Other [facility] Other Start: 01-16-2023 Office outpatient vi sit 25 minutes Kelechi Galvan [facility] Start: 01-11-2023 End: 01-11-2023 Patient encounter procedure PHP DEVELOPER-C Angélica Swann Work Phone: [facility] Work Phone: Start: 01-11-2023 End: 01-11-2023 ambulatory Angélica Swann [facility] Work Phone: Start: 01-11-2023 Office outpatient vi sit 15 minutes Angélica Swann [facility] Start: 01-11-2023 Telephone encounter Kelechi GRANDA [facility] Start: 01-09-2023 Encounter for genera l adult medical examination without abnormal findings DR KELECHI GALVAN [facility] Start: 01-05-2023 End: 01-06-[address] KELECHI GALVAN Facility:[facility]1 Start: 01-05-2023 End: 01-06-2023 Encounter for general adult medical examination without abnormal findings DR KELECHI GALVAN Facility:[facility] Start: 01-03-2023 End: 01-03-2023 ambulatory Kelechi Galvan Other [facility] Other Start: 01-03-2023 Encounter for genera l adult medical examination without abnormal findings [facility] Start: 01-03-2023 Patient encounter status Conrad Galvan Other [facility] Other Start: 01-03-2023 Telephone encounter [facility]lechi [facility] Start: 12-21-2022 End: 12-22-[address] KELECHI GALVAN Facility:[facility] Start: 12-08-2022 End: 12-09-[address] KELECHI GALVAN Facility:[facility] Start: 11-23-2022 End: 11-23-2022 ambulatory Kelechi Galvan Other [facility] Other Start: 11-23-2022 Telephone encounter [facility]lechi [facility] Start: 11-16-2022 End: 11-17-[address] KELECHI GALVAN Facility:[facility] Start: 11-09-2022 End: 11-24-[address] KELECHI GALVAN Facility:[facility] Start: 11-03-2022 End: 11-04-[address] KELECHI GALVAN Facility:[facility] Start: 10-27-2022 End: 10-28-[address] KELECHI GALVAN [facility] Other Start: 10-27-2022 Telephone encounter Kelechi GRANDA Tato [facility] Start: 10-18-2022 End: 10-18-2022 ambulatory Kelechi Galvan Other [facility] Other Start: 10-18-2022 Office outpatient vi sit 25 minutes Kelechi Galvan [facility] Start: 10-07-2022 End: 10-07-2022 ambulatory Kelechi Galvan Other [facility] Other Start: 10-07-2022 Telephone encounter Kelechi GRANDA Tato [facility] Start: 08-26-2022 Adult health examination Conrad omer [facility] Other [facility] Other Start: 07-11-2022 End: 07-12-[address] KELECHI GALVAN Facility:[facility]1 Start: 04-07-2022 End: 04-08-[address] DEANN ELIAS . Facility:[facility] Start: 07-28-2019 Pre-procedure evalua tion check Kelechi Galvan Other [facility] Other Start: 07-17-2018 Gynecological examination normal Kelechi Galvan Other [facility] Other Procedures Date Procedure Procedure Detail Performing Clinician Start: 01-11-2023 Plain X-ray of right hand PHP DEVELOPER-C Angélica Swann Work Phone: Start: 01-18-2019 Preoperative [...] EST Office Visit [facility] [address] [place] [id number] Antione Madera DO [address] [place] [address] [address] [facility] [address] Comment on above: Arrived Start: 03-09-2023 ambulatory Ambulatory Facility:H 1 Comprehensive metabo lic 2000 panel - Serum or Plasma [facility] MG Breast - bilatera l Screening [facility] Payers Date Payer Category Payer Unknown 2023 Self-pay 2021 Private Health Insurance [facility] MEDICA[facility] [id number] 1974 Unknown [id number]. 59 1974 Unknown [id number] 2.840.1.199559.3.579.2. 593 1974 Unknown [id number] 2.840.1.049893.3.579.2. 593 1974 Unknown [id number] 2.16840.1.401833.3.579.2. 59 1974 Unknown [id number] 2.16840.1.453508.3.579.2. 593 1974 Unknown [id number] 2.840.1.976897.3.579.2. 593 1974 Unknown [id number] 2.16.840.1.101024.3.579.2. 593 1974 Unknown [id number] 2.16.840.1.962299.3.579.2. 593 1974 Unknown [id number] 2.16.840.1.005375.3.579.2. 593 1974 Unknown [id number] 2.16.840.1.594434.3.579.2. 593 1974 Unknown [id number] 2.16.840.1.013562.3.579.2. 593 1974 Unknown [id number] 2.16.840.1.050618.3.579.2. 196 1974 Unknown [id number] 2.16.840.1.839068.3.579.2. 1259 1959 Unknown [id number] 2.16.840.1.793100.19 1959 Unknown [id number] Medicaid [employer] [id number] Unknown [id number] [id number]. 531 Social History Date Type Detail Facility Unknown if ever smoked [facility] Other Start: 08-07-2024 Sex Assigned At [place] [employer] Other Start: 1975 Sex Assigned At Female [facility] Start: 05-16-2018 End: 05-16-2018 Tobacco smoking status MAIS Never smoked tobacco (finding) [facility] Start: 01-27-2024 End: 01-27-2024 Tobacco smoking status MAIS Ex-smoker (finding) [facility] Start: 07-22-2024 End: 10-27-2024 Sex Female (finding) [facility] Tobacco smoking stat [facility] Tobacco smoking consumption unknown [facility] Start: 1975 Sex assigned at Not on file [facility] Start: 09-11-1988 End: 09-11-2003 History of tobacco use Current smoker [facility] Start: 09-11-1988 End: 09-11-2003 History of tobacco use Cigarette Smoker [facility] Start: 08-07-2024 Cigarettes smoked current (pack per day) - Reported 1.5 [facility] Start: 08-07-2024 Tobacco use and exposure Smokeless tobacco non-user [facility] Start: 08-07-2024 Alcoholic beverage intake Lifetime non-drinker (finding) [facility] Medical Equipment Procedure Code Equipment Code Equipment [...] 8:26am Wellness examination acute Dece 2023 8:26am [facility] Work Phone: 1(816) 788-992711-27-2024 History of Present illness Narrative* Antione Madera [...] minutes and residual AHI of 0.3. Her Valentines Sleepiness scale is a 3. She does have underlying obesity but is trying to work hard with diet exercise and weight loss. Shelost about 70 lb but gained a litte bit back and knows she needs to get back on her regular programas she was doing very well. Plan Compliance data was reviewed with her and she is compliant Valentines Sleepiness scale is 3 Continue use the CPAP machine whenever sleeping Get back on the diet and exercise regimen The patient was counseled on the need for aggressive diet, exercise, and weight loss. The patient was counseled on proper sleep hygiene and adequate hours of sleep. The patient was counseled on the risks of stroke, MO, and sudden with REBA, along with the [...] to clinic: 1 year [id number] Evaluation note* Diagnosis Onset Date Resolution Status Admit Date Carpal tunnel syndrome of right wrist acute June 21 11:38am Insomnia acute June 21, 2024 11:38am Major depression acute June 21, 2024 11:38am Panic attack acute June 11:38am Insomnia acute July 22, 2024 10:19am Major depression acute July 22, 2024 10:19am Panic attack acute July 10:19am Primary hypertension acute [facility] 2023 10:19am [facility] Work Phone: 1(295) 481-938102-09-2024 Evaluation note* Encounter Date Diagnosis Assessment Notes Treatment Notes Treatment Clinical Notes Oct, Morbid (severe) obesity due to excess calories (ICD-10 - E66.01) [facility] Other 02-06-2024 Evaluation note* Encounter Date Diagnosis [...] index [BMI] 50.0-59.9, adult (ICD-10 - Z68.43) [facility] Other 01-12-2024 Evaluation note* Encounter Date Diagnosis [...] index [BMI] 50.0-59.9, adult (ICD-10 - Z68.43) [facility] Other 12-29-2023 Evaluation note* Encounter Date Diagnosis Assessment Notes Treatment Notes Treatment Clinical Notes Aug, Prolactinoma (ICD-10 - D35.2) MRI < 10mm, prolactin 80 - 2022 [facility] Other 12-16-2023 Evaluation note* Encounter Date Diagnosis Assessment Notes Treatment Notes Treatment Clinical Notes Aug, Hyperprolactinemia (ICD-10 - E22.1) [facility] Other 12-12-2023 Evaluation note* Encounter Date Diagnosis [...] use, the patient reduces the risk for MO, CVA, HTN, cardiac dysrhythmias and sudden cardiac [...] patient on monthly SBE and yearly mammograms. [facility] Other 09-15-2023 Evaluation note* Encounter Date Diagnosis [...] thoracic region, initial encounter (ICD-10 - S29.019A) [facility] Other 08-08-2023 Evaluation note* Encounter Date Diagnosis Assessment Notes Treatment Notes Treatment Clinical Notes Apr, Sharmin-menopausal (ICD-10 - N95.1) Recommend scheduling appt w/ Applications Scientist. Apr, Primary hypertension (ICD-10 - I10) This [...] use, the patient reduces the risk for MO, CVA, HTN, cardiac dysrhythmias and sudden cardiac deaths.The patient is also aware of the association between REBA and morning headaches, daytime somnolence, fatigue and obesity, which also has been improved with continued use.The patient is compliant with treatment, wearing the equipment every night for greater than 4 hours.The patient is instructed to continue use of the CPAP for REBA treatment. [facility] Other 06-20-2023 Evaluation note* Encounter Date Diagnosis Assessment Notes Treatment Notes Treatment Clinical Notes Feb, Seborrheic dermatitis of scalp (ICD-10 - L21.9) Keep clean, avoid scratching Stop using Mupirocin Initiate topical steroid ointment Feb, Primary hypertension (ICD-10 - I10) This patient is instructed to consume a healthy, low-fat, low-salt diet. They are also encouraged to continue exercise to achieve/maintain a normal BMI. [facility] Other 05-11-2023 Evaluation note* Encounter Date Diagnosis Assessment Notes Treatment Notes Treatment Clinical Notes January, Type 2 diabetes mellitus with hyperglycemia, without long-term current use of insulin (ICD-10 - E11.65) [facility] Other 05-08-2023 Evaluation note* Encounter Date Diagnosis [...] use, the patient reduces the risk for MO, CVA, HTN, cardiac dysrhythmias and sudden cardiac [...] visual defects. January, Hyperprolactinemia (ICD-10 - E22.1) [facility] Other 05-03-2023 Evaluation note* Encounter Date Diagnosis Assessment Notes Treatment Notes Treatment Clinical Notes January, REBA (obstructive sleep apnea) (ICD-10 - G47.33) AHI 104 w/ Psat 68%, BiPAP , full facial mask [facility] Other 05-03-2023 Evaluation note* Encounter Date Diagnosis [...] no improvement in 2 to 3 days [facility] Other 04-25-2023 Evaluation note* Encounter Date Diagnosis Assessment Notes Treatment Notes Treatment Clinical Notes Dec, Type 2 diabetes mellitus with hyperglycemia, without long-term current use of insulin (ICD-10 - E11.65) Dec, Primary hypertension (ICD-10 - I10) Dec, Wellness examination (ICD-10 - Z00.00) [facility] Other 03-30-2023 NoteCONSULTATION CONSULTATION DATE: 12/08/2022 TO: [...] this point for her residual pain symptoms.[id number] Evaluation note* Encounter Date Diagnosis Assessment Notes Treatment Notes Treatment Clinical Notes Nov, REBA (obstructive sleep apnea) (ICD-10 - G47.33) AHI 101 w/ Psat 79% [facility] Other 03-15-2023 Evaluation note* Encounter Date Diagnosis Assessment Notes Treatment Notes Treatment Clinical Notes Nov, REBA (obstructive sleep apnea) (ICD-10 - G47.33) AHI 104 w/ Psat 68% [facility] Other 02-23-2023 NotePAIN MANAGEMENT CONSULTATION CONSULTATION DATE: [...] four weeks' time or sooner if needed.[facility] 11-03-2022 NotePAIN MANAGEMENT CONSULTATION CONSULTATION DATE: [...] on his response to change in medication.[facility] 10-18-2022 Evaluation note* Encounter Date Diagnosis [...] (ICD-10 - R29.818) Referral for sleep study [facility] Other 07-28-2022 NoteCONSULTATION CONSULTATION DATE: 04/07/2022 HISTORY [...] Patient states understanding and all questions answered.[id number] History general Narrative - Reported* Type Description Date Medical History hypertension Medical History back pain Medical History degenerative disc disease Medical History Prolactinoma Medical History asthma Surgical History C section 05/31/2011 Surgical History IVF 12/01/2008 Surgical History hysterectomy laps assisted 04-2 007 Surgical History right foot sx (planter) Hospitalization History see above Hospitalization History blood transfusion 09/2014 [facility] Other Chief complaint+Reason for visit Narrative* Chief Complaint COVID+ Amb Documentation 3 month follow up Reason for Visit COVID-19 Lumbar spondylosis REBA (obstructive sleep apnea) Primary hypertension Type 2 diabetes mellitus with hyperglycemia [facility] Work Phone: Evaluation noteNo InformationNortKindred Healthcare [facility] Other Evaluation noteNo assessment information available [facility] Work Phone: Evaluation note* Diagnosis Onset Date Resolution Status Type 2 diabetes mellitus with hyperglycemia acute COVID-19 noneactive [facility] Work Phone: Evaluation note* Diagnosis Onset Date Resolution Status COVID-19 noneactive Lumbar spondylosis acute REBA (obstructive sleep apnea) acute Primary hypertension acute Type 2 diabetes mellitus with hyperglycemia acute [facility] Work Phone: Evaluation note* Diagnosis Onset Date Resolution Status Obesity acute Primary hypertension acute Type 2 diabetes mellitus with hyperglycemia acute [facility] Work Phone: Evaluation note* Diagnosis Onset Date Resolution Status Right otitis media with effusion acute Obesity acute Primary hypertension acute Type 2 diabetes mellitus with hyperglycemia acute [facility] Work Phone: Evaluation note* Diagnosis Onset Date Resolution Status Obesity acute REBA (obstructive sleep apnea) acute Palpitation acute Primary hypertension acute Type 2 diabetes mellitus with hyperglycemia acute [facility] Work Phone: evaluation note* Diagnosis [...] see above Hospitalization History blood transfusion 09/2014 [facility] Other Summary Purpose Family History Relationship Condition [...] DATE CREATED AUTHOR AUTHOR'S ORGANIZ ATION 01/12/2023 [facility] DATE CREATED AUTHOR AUTHOR'S ORGANIZ ATION 01/01/2024 [facility] DATE CREATED AUTHOR AUTHOR'S ORGANIZ ATION 08/10/2024 [facility] dical Specialists EPIC Care Teams (unrecognized sec [...] July 22, 2024 End: July 22, 2024 Cream Dumper Relationship Specialty Start Date End Date Kelechi Galvan MD [address] [place] [address] PCP - General Internal Medicine 9/14/23 Cream Dumper Relationship Specialty Start Date End Date Kelechi Galvan MD [address] [place] [address] PCP - General Internal Medicine [...] BE BASED ON THE PRIMARY CLINICAL RECORDS. [employer] provides no warranty or guarantee of the accuracy or completeness of information in this document.
[2024-12-17 09:55] LABS: Free T4 0.95 ng/dL (0.76-1.46)
[2024-12-17 09:57] LABS: Thyroid Stimulating Hormone 4.726 uIU/mL (0.358-3.740)
== END 2024-12-17 08:03 | disposition home or self-care (01) ==
LOC: LAB 08:04
PROVIDERS: PCP Internal Medicine; Visit Provider Internal Medicine
DX: E03.8 Other specified hypothyroidism (principal); R79.89 Other specified abnormal findings of blood chemistry
CPT/HCPCS: 36415; 84439; 84443

== ENCOUNTER 2025-01-08 14:30 | Outpatient (OUT) | payer BC, OTHER, SELFPAY ==
--- NOTE | 2025-01-08 14:30 | PM.CN ---
Consult Note: HPI Data of Consult Patient: known to practice within the last 3 years Requesting Physician: Jeny Manley NP Primary Care Provider: Kelechi Galvan DO Consult Narrative Reason for consult: f/u Narrative: Jing Gray a pleasant 49 year old female presents for evaluation of acute on chronic low back pain. Pt reports around 11/27/24 she developed severe low back pain without cause. She was evaluated by her PCP who prescribed steroids and tramadol, pt reports no improvement from the tramadol and mild relief while on the last two days of her oral steroids however pain has returned. Pain 10/10 without loss of bowel/bladder, fevers, chills. failed to benefit from heat, ice, topical creams, lidocaine patch. has been engaged in provider guided HEP > 6 weeks, however her pain pattern has changed significantly. Pain today sharp, grabbing, tight. Pain increases with all activity and nothing is improving her pain. cc:: CC: Jeny Manley NP Review of Systems ROS Status of ROS 10 or more systems reviewed and unremarkable except as noted in history and below Musculoskeletal Reports: back pain PFSH PFSH Medical History In vitro fertilization ?Z31.83 - Encounter for assisted reproductive fertility procedure cycle (ICD-10) Diabetes ?E11.9 - Type 2 diabetes mellitus without complications (ICD-10) HTN (hypertension) ?I10 - Essential (primary) hypertension (ICD-10) Surgical History History of dilation and curettage ?Z98.890 - Other specified postprocedural states (ICD-10) History of tubal ligation ?Z98.51 - Tubal ligation status (ICD-10) History of hysteroscopy ?Z98.890 - Other specified postprocedural states (ICD-10) Previous section ?Z98.891 - History of uterine scar from previous surgery (ICD-10) History of fasciotomy ?Z98.890 - Other specified postprocedural states (ICD-10) History of laparoscopy ?Z98.890 - Other specified postprocedural states (ICD-10) Meds Home Medications and Allergies Home Medications ?Medication ?Instructions ?Recorded ?Confirmed ?Type atenolol 50 mg tablet 50 mg PO DAILY 03/09/23 11/27/23 History dulaglutide 4.5 mg/0.5 mL 4.5 mg subcut QWEEK 03/09/23 11/27/23 History subcutaneous pen injector (Trulicity) furosemide 20 mg tablet 20 mg PO DAILY 03/09/23 11/27/23 History lisinopril 5 mg tablet 5 mg PO DAILY 03/09/23 11/27/23 History metformin 1,000 mg tablet 1,000 mg PO BID 03/09/23 11/27/23 History potassium chloride 10 mEq 10 meq PO DAILY 03/09/23 11/27/23 History tablet,extended release (Klor-Con) tizanidine 4 mg tablet See Rx Instructions .Route 11/26/24 Rx .COMPLEX PRN muscle spasticity #225 tabs ibuprofen 600 mg tablet 600 mg PO DAILY PRN pain 12/04/24 12/04/24 History Allergies Allergy/AdvReac Type Severity Reaction Status Date / Time Penicillins Allergy Rash Verified 11/27/23 08:08 Exam Constitutional Documenting provider has reviewed patient's vital signs: yes Common normals: no apparent distress and oriented x3 General appearance: in distress Nutritional appearance: obese HENMT Common normals: normocephalic, hearing grossly normal bilaterally and moist oral mucous membranes Head and scalp: normocephalic Eye Common normals: PERRL Pupil: PERRL Neck & C-Spine Common normals: full ROM General: normal visual inspection Chest Common normals: inspection of chest normal Respiratory Common normals: normal respiratory effort, no retractions and no use of accessory muscles Back & Pelvis Lumbar spine/lower back: pain with ROM, lumbar spinal tenderness (right paraspinous ) Lumbar spinal tenderness location: L1, L2 and L3 and straight leg raise positive right Other: sensation intact BLE positive right SLR strength 3/5 in BLE severe pain with forward bending and facet loading Neuro Common normals: oriented x3 Sensorium/orientation: alert Motor exam: no movement abnormalities noted Psych Common normals: mental status grossly normal, thought process normal, cooperative, affect normal, speech normal and activity/motor behavior normal Speech: normal speech Thought process: normal thought process Results Additional Findings Additional findings: If on a controlled substance or opioids, I have checked an [place] report on this patient and there are no aberrancies noted in the prescribing history.??If on a controlled substance or opioid a drug screen was completed and reviewed within the last year, and if there has not been a drug screen completed we ordered one today to monitor higher risk, state monitored pain medication use. As part of providing excellent, safe, comprehensive care, the following was completed at our patient's visit: 1. A medication reconciliation and review to ensure accurate knowledge of current/active medications, including asking our patients to inform us about any [id number] medications or herbal remedies/nutritional supplements/alternative remedies. 2. A review to specifically ensure our patients have had annual screening for screening for depression, screening for tobacco use, and screening for unhealthy alcohol use. For concerning screenings had a discussion with the patient, provided patient education, and recommended follow-up with primary care provider when appropriate. If patient noted with a risk of falling, they received education on strength, gait, and balance training to prevent future risk of falling. Portions of this note may have been carried over from the previous visit and updated as appropriate. Please note this office utilizes paper charting in addition to the electronic medical record. A list of current medications, vitals, and PMH is available there as the clinical staff outside of myself do not have access to [employer] charting during the clinic day operations. As part of providing quality comprehensive care the current medications, vitals, and PMH were reviewed in the paper chart. Assessment and Plan Assessment and Plan (1) Acute on chronic low back pain: (2) Intractable pain: (3) Vertebrogenic pain: (4) Discogenic lumbar pain: (5) Thoracic spondylosis: (6) Lumbar spondylosis: (7) Degeneration of intervertebral disc of lumbar region with discogenic back pain and lower extremity pain: (8) Chronic myofascial pain: Plan 49 year old female with acute on chronic severe intractable low back pain without recent imaging. will update STAT lumbar xray with flexion and lumbar MRI without contrast to evaluate severe onset low back pain and BLE weakness. alerted pt to go to the ER if she develops fevers, bladder or bowel incontinence, worsening of BLE weakness, falls or any other changes. As discussed will write pt off of work the remainder of the week and write her off of grand jury duty. start percocet 5-325mg TID PRN moderate to severe pain, continue tizainide and tylenol PRN. update UDS for medication monitoring. risks vs benefits reviewed. f/u to review imaging
== END 2025-01-08 14:31 | disposition home or self-care (01) ==
LOC: PM 01-09 07:07
PROVIDERS: PCP Internal Medicine; Visit Provider Nurse Practitioner
DX: M54.50 Low back pain, unspecified (principal); M54.51 Vertebrogenic low back pain; M47.814 Spondylosis without myelopathy or radiculopathy, thoracic region; M47.816 Spondylosis without myelopathy or radiculopathy, lumbar region; M51.369 Other intervertebral disc degeneration, lumbar region without mention of lumbar back pain or lower extremity pain; M79.18 Myalgia, other site; M54.16 Radiculopathy, lumbar region
CPT/HCPCS: G0463

== ENCOUNTER 2025-01-08 15:17 | Outpatient (OUT) | payer BC, OTHER, SELFPAY | END 2025-01-08 15:18 | disposition home or self-care (01) | LOC: RAD 15:19 | PROVIDERS: PCP Internal Medicine; Visit Provider Nurse Practitioner | DX: M54.50 Low back pain, unspecified (principal); M54.51 Vertebrogenic low back pain; M47.814 Spondylosis without myelopathy or radiculopathy, thoracic region; M47.816 Spondylosis without myelopathy or radiculopathy, lumbar region; M79.18 Myalgia, other site; M54.16 Radiculopathy, lumbar region | CPT/HCPCS: 72114; G0463 ==

== ENCOUNTER 2025-02-06 19:38 | Emergency (ER) | payer BC, OTHER, SELFPAY ==
--- OUTSIDE RECORDS SUMMARY | 2025-02-06 19:51 | XMS_ITS | CCD ---
Author Organization [facility] CliniSyil Care Team Providers Care Nanotechnology Technician Name Role Phone Kelechi Galvan Unavailable COLE, DR CULVER Primary Care Unavailable LAKSHMIPATHY ., NARENDRANATH Admitting Bebe vailable LAKSHMIPATHY ., NARENDAPULA Consulting Bebe vailable LAKSHMIPATHY ., ERINN Attending [...] Swann Admitting Unavailable TRINI Swann Attending Provider [phone] Hernan BURGESS, Joe Ko Attending Unavailable Kelechi Galvan MD Primary Care Provider ANTIONE MADERA Attending Unavailable Allergies Allergy Classification Reported Allergen(s) Allergy Type Date of Onset Reaction(s) Facility (13 sources) Penicillin G Drug Allergy pt doesn't remember [facility] Other (2 sources) Penicillins Drug allergy (disorder) 3 [facility] Repository (19 sources) Doxycycline Drug Allergy 4 Unknown, Unknown [facility] (2 sources) Penicillin Drug Allergy Unknown [facility] Other (9 sources) Penicillin G Benzathine & Proc Drug allergy 7 Unknown [facility] Other (2 sources) patient allergy list reviewed by nurse or physicia Propensity to adverse reactions 4 Comment:Done [facility] Other (2 sources) Allergies Reconciled Propensity to adverse reactions Unknown [facility] Other (8 sources) Penicillin G Benzathine Allergy to substance 4 Unknown [facility] Comment on above: Onset Date: 12/22/19 07 (3 sources) Penicillins Propensity to adverse reactions 3 Unknown [facility] Work Phone: Medications Current Medications Medication Drug Class(es) Dates Sig (Normalized) Sig (Original) atenolol 50 mg oral tablet (20 sources) beta-Adrenergic Selin Start: 04-08-2024 take 1 tablet by mouth once daily Atenolol 50 mg tablet Active 0 .ROUTE .COMPLEX 90 April 08, 2024 9:59am TAKE 1 TABLET BY MOUTH EVERY DAY Start: 04-19-2023 End: 04-08-2024 take 1 tablet by mouth once daily Atenolol 50 mg tablet Discontinued 50 MG PO Daily October 27, 2023 1:00am April 08, 2024 9:59am Atenolol Not-Anuj ing/PRN Atenolol Not-Anuj ing Atenolol Active 24 hr buPROPion hydrochloride 450 mg extended release oral tablet (14 sources) Aminoketone Start: 12-27-2024 take 1 tablet by mouth once daily in the morning Bupropion Hcl 450 mg tablet extended release 24 hr Active 450 MG PO Every morning December 27, 2024 12:00am Start: 08-06-2024 take 1 tablet by leora th once daily in the morning Bupropion Hcl 300 mg tablet extended release 24 hr Active 0 .ROUTE .COMPLEX August 06, 2024 10:05pm TAKE 1 TABLET BY MOUTH EVERY MORNING Start: 08-06-2024 take 1 tablet by leora th once [...] MG PO Every morning July 15, 2024 1:52pm August 06, 2024 10:06pm Start: 07-05-2024 End: 07-15-2024 take 2 tablets by mouth once daily in the morning Bupropion Hcl 300 mg tablet extended release 24 hr Discontinued 150 MG PO Every morning July 05, 2024 1:19pm July 15, 2024 1:53pm Start: 06-24-2024 End: 07-05-2024 take 1 tablet by mouth once daily in the morning Bupropion Hcl 150 mg tablet extended release 24 hr Discontinued 150 MG PO Every morning June 24, 2024 12:00am July 05, 2024 1:19pm cetirizine hydrochloride 10 mg oral tablet (20 sources) Histamine-1 Receptor Antagonist Start: 06-23-2024 take 1 tablet by mouth once daily Cetirizine 10 mg tablet Active 0 .ROUTE .COMPLEX June 23, 2024 12:17pm TAKE 1 TABLET BY MOUTH EVERY DAY Start: 05-02-2023 End: 06-23-2024 take 1 tablet by mouth once daily Cetirizine 10 mg tablet Discontinued 10 MG PO Daily October 27, 2023 1:00am June 23, 2024 12:17pm cyclobenzaprine hydrochloride 10 mg oral tablet (3 [...] WEEKLY Active escitalopram 10 mg oral tablet (20 sources) Serotonin Reuptake Inhibitor Start: 12-27-2024 take 1 tablet by mouth once daily Escitalopram Oxalate 10 mg tablet Active 10 MG PO Daily December 27, 2024 8:55am Start: 07-15-2024 End: 12-27-2024 take 1 tablet by mouth once daily Escitalopram Oxalate 20 mg tablet Discontinued 0 .ROUTE .COMPLEX July 15, 2024 9:45pm December 27, 2024 8:56am TAKE 1 TABLET BY MOUTH EVERY DAY Start: 06-21-2024 End: 07-05-2024 take 1 tablet by mouth once daily Escitalopram Oxalate 20 mg tablet Discontinued 20 MG PO Daily June 21, 2024 12:11pm July 05, 2024 1:19pm Start: 04-18-2023 End: 07-15-2024 take 1 tablet by mouth once daily Escitalopram Oxalate 10 mg tablet Discontinued 10 MG PO Daily October 27, 2023 1:00am March 27, 2024 9:59am furosemide 20 mg oral tablet (20 sources) Loop Diuretic Start: 04-05-2023 End: 11-18-2024 take 1 tablet by mouth once daily Furosemide 20 mg tablet Active 20 MG PO Daily November 18, 2024 10:29pm Furosemide Activ e lifitegrast 50 mg/ml ophthalmic [...] 5 mg tablet Active 0 .ROUTE .COMPLEX April 08, 2024 9:59am TAKE 1 TABLET BY MOUTH EVERY DAY Start: 05-07-2023 End: 04-08-2024 take 1 tablet by mouth once daily Lisinopril 5 mg tablet Discontinued 5 MG PO Daily October 27, 2023 1:00am April 08, 2024 9:59am Lisinopril Not-T aking/PRN Lisinopril Not-T aking Lisinopril Activ e OneTouch Ultra - (8 sources) OneTouch Ultra - USE 1 STRIP TO CHECK HOME BLOOD SUGAR for 25 Active potassium 99 mg extended release oral tablet (15 sources) Start: 10-27-2023 take 1 mg by mouth once daily Potassium 99 mg tablet Active MG PO Daily October 27, 2023 1:00am Start: 10-27-2023 take 1 mg by mouth [...] by mouth in the morning. 04/30/2023 Active predniSONE 20 mg oral tablet (9 sources) Start: 12-27-2024 Prednisone 20 mg tablet Active 20 MG PO As Directed December 27, 2024 12:00am 1 tab tid w/ food x 3 days, then bid w/ food x 3 days, then qd w/ food x 3 days Start: 05-26-2023 take 1 tablet by leora th every twelve hours predniSONE 20 MG 1 tablet Orally bid for 5 day(s) May, Not-Taking/PRN tiZANidine 4 mg oral tablet (20 sources) Central alpha-2 Adrenergic Agonist Start: 10-27-2024 take 2 tablets by mouth once daily at bedtime Tizanidine 4 mg tablet Active 8 MG PO Daily at bedtime October 27, 2024 2:50pm Start: 10-27-2023 End: 10-27-2024 take 1 tablet by mouth once daily at bedtime Tizanidine 4 mg tablet Discontinued 4 MG PO Daily at bedtime 90 90 August 23, 2024 9:56am October 27, 2024 2:50pm Start: 05-16-2023 take 1 tablet by leora [...] as needed Orally every 8 hrs Active traMADol hydrochloride 50 mg oral tablet (1 source) Opioid Agonist Start: 12-27-2024 take 1 tablet by mouth three times daily as needed for pain Tramadol 50 mg tablet Active 50 MG PO Three times daily as needed for pain 31 03December 27, 2024 12:00am Trulicity 4.5 MG/0.5ML solution pen-injector (3 sources) Start: 05-03-2023 inject 4.5 mg by subcutaneous injection every week Trulicity 4.5 MG/0.5ML solution pen-injector Inject 4.5 mg under the skin 1 (one) time per week. 05/03/2023 Active Completed/Discontinued Medications Medication Drug Class(es) Dates Sig (Normalized) Sig (Original) baclofen 10 mg oral tablet (14 sources) gamma-Aminobutyri c Acid-ergic Agonist Start: 10-27-2023 [...] week Not-Taking/PRN cefdinir 300 mg oral capsule (9 sources) Cephalosporin Antibacterial Start: 08-18-20 End: 08-28-20 take 1 capsule by mouth twice daily Cefdinir 300 mg capsule Discontinued 300 MG PO Twice daily August 23, 2024 1:00am August 28, 2024 3:19pm Start: 01-27-2024 End: 04-16-2024 take 1 capsule by mouth every twelve hours Cefdinir 300 mg capsule Discontinued 300 MG PO Every 12 hours 30 06January 27, 2024 12:00am April 16, 2024 8:34am dapagliflozin 5 mg oral tablet (20 sources) Sodium-Glucose Cotransporter 2 Inhibitor Start: 01-16-2023 End: 08-07-2024 take 1 tablet by mouth once daily Dapagliflozin Propanediol (Farxiga) 5 mg tablet Discontinued 5 MG PO Daily October 27, 2023 1:00am February 26, 2024 1:07pm Dexamethasone / Neomycin / Polymyxin B (20 sources) Aminoglycoside Antibacterial, Polymyxin-class Antibacterial, Corticosteroid Start: 09-13-2020 take 2 drop(s) into the eye(s) three times daily as needed Maxitrol 3.5-25869-7.1 2 drops into affected eye Ophthalmic Three times a day for 7 days Sep, Not-Taking/PRN Start: 09-13-2020 take 2 drop(s) into the eye(s) three times daily Maxitrol 3.5-39548-6.1 2 drops into affected eye Ophthalmic Three times a day for 7 days Sep, Not-Taking Start: 09-13-2020 take 2 drop(s) into the eye(s) three times daily Maxitrol 3.5-49750-2.1 2 drops into affected eye Ophthalmic Three times a day for 7 days Sep, Active Dulaglutide (Trulicity) 4.5 mg/0.5 mL pen injector (7 sources) Start: 10-27-2023 End: 10-27-2024 Dulaglutide (Trulicity) 4.5 mg/0.5 mL pen injector Discontinued 4.5 MG SUBCUT every week October 27, 2023 1:00am October 27, 2024 2:49pm Start: 10-27-2023 End: 10-27-2024 Dulaglutide (Trulicity) 4.5 [...] SUBCUT every week October 27, 2023 1:00am fluticasone propionate 0.05 mg/actuat metered dose nasal spray (7 sources) Corticosteroid Start: 08-18-2024 End: 12-27-2024 take 1 spray(s) nasal route once daily Fluticasone Propionate (Flonase Allergy Relief) 50 mcg/actuation spray,suspension Discontinued 1 SPRAY INTRANASAL Daily August 18, 2024 1:00am December 27, 2024 8:39am administer into each nostril Start: 01-27-2024 End: 10-27-2024 take 2 spray(s) nasal route once daily Fluticasone Propionate (Flonase Allergy Relief) 50 mcg/actuation spray,suspension Discontinued 2 SPRAY INTRANASAL Daily January 27, 2024 12:00am October 27, 2024 2:45pm administer 2 spray into each nostril hydrOXYzine hydrochloride 50 mg oral tablet (9 sources) Antihistamine Start: 06-27-2024 End: 10-27-2024 take 1 tablet by mouth once daily at bedtime as needed for anxiety Hydroxyzine Hcl 50 mg tablet Discontinued 50 MG PO Daily at bedtime as needed for anxiety 03 17June 27, 2024 12:42pm October 27, 2024 2:49pm Start: 06-21-2024 End: 06-27-2024 take 1 tablet by mouth three times daily as needed for anxiety Hydroxyzine Hcl 25 mg tablet Discontinued 25 MG PO Three times daily as needed for anxiety June 21, 2024 12:00am June 21, 2024 12:23pm Ketorolac (20 sources) Nonsteroidal Anti-inflammatory Drug, Cyclooxygenase Inhibitor Start: 06-22-2019 Toradol per 15 mg Jun, 30 mg levoFLOXacin 750 mg oral tablet (2 sources) Quinolone Antimicrobial Start: 08-28-2024 End: 10-27-2024 take 1 tablet by mouth once daily Levofloxacin 750 mg tablet Discontinued 750 MG PO Daily 03 17August 28, 2024 1:00am October 27, 2024 2:45pm metFORMIN hydrochloride 1000 mg oral tablet (20 sources) Biguanide Start: 03-28-2024 End: 04-16-2024 take 1 tablet by mouth twice daily Metformin 1,000 mg tablet Discontinued 0 .ROUTE .COMPLEX 180 March 28, 2024 8:45am April 16, 2024 8:33am TAKE 1 TABLET BY MOUTH TWICE A DAY FOR 30 DAYS Start: 10-27-2023 End: 03-28-2024 take 1 tablet by mouth twice daily Metformin 1,000 mg tablet Discontinued 1000 MG PO Twice daily October 27, 2023 1:00am March 28, 2024 8:45am Start: 04-19-2023 take 1 tablet by leora [...] (150 mg x 2)-100 mg tablets,dose pack (8 sources) Start: 10-27-2023 End: 12-20-2023 take 2 [...] 37.5 MG PO Daily May 28, 2024 2:05pm June 21, 2024 12:11pm start 05/28 Start: 10-23-2023 take 1 tablet [...] for 30 days Rx #1 Aug, Active Toradol 30 mg/ml (8 sources) Start: 05-26-2023 [...] to other specified organisms] Episodic Anxiety disorders (5 sources) Panic attack; 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: [Panic disorder [episodic paroxysmal anxiety]] 06-21-2024 Chronic Cardiac dysrhythmias (7 sources) Palpitations; 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: [Palpitations] Onset: 7 04-16-2024 [...] menstrual cycle] Onset: 7 Chronic Mood disorders (19 sources) Moderate major depression, single episode; 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: [Major depressive disorder, single episode, moderate] Chronic Mycoses (2 sources) Candidiasis; 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: [Candidiasis, unspecified] Episodic Nonmalignant breast conditions (17 sources) Large breast; 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: [Macromastia] Onset: 6 Episodic Other aftercare (2 sources) High risk drug monitoring status; 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] Episodic Other [...] Onset: 2 Chronic Other nervous system disorders (3 sources) Carpal tunnel syndrome of right wrist; [...] Chronic Other nutritional; endocrine; and metabolic disorders (9 sources) Obesity; 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: [Obesity, unspecified] 01-15-2024 Chronic [...] conditions (not mental disorders or infectious disease) (7 sources) Encounter for screening mammogram for malignant [...] 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: [Pain, unspecified] Episodic Residual codes; unclassified (3 sources) Insomnia; 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: [Insomnia, unspecified] 06-21-2024 Episodic [...] Spondylosis; intervertebral disc disorders; other back problems (7 sources) Pain in thoracic spine; 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: [Low back pain] Onset: 5 12-27-2024 Episodic Sprains and strains (18 sources) Sprain of ankle; 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: [Ankle sprain] Onset: 9 Episodic Thyroid disorders (1 source) Subclinical hypothyroidism; Translations: [Other specified hypothyroidism] 12-12-2024 Chronic Viral infection (6 sources) Herpesviral vesicular dermatitis; [...] Test Name Value Interpretation Reference Range Facility Laboratory - Chemistry and C hemistry - challengeon 12-17-2024 Free T4 [Mass/Vol] 0.95 ng/dL 0.76-1.46 [facility] TSH Qn 4.726 m[IU]/L High 0.358-3.740 [facility] Basophils Auto (Bld) [#/Vol] on 10-09-2024 Basophils (Bld) [#/Vol] Automated basophil count 0.0-0.1 [facility] Basophils/100 WBC Auto (Bld) on 10-09-2024 Basophils/100 WBC (Bld) Automated basophil % 0.2-2.0 [facility] Cholesterol in LDL Calc [Mas s/Vol]on 10-09-2024 Cholesterol in LDL [Mass/Vol] Cholesterol in LDL [Mass/volume] in Serum or Plasma by calculation [facility] Comment on above: <100 mg/dl [id number] 0-129 mg/dl NEAR OR ABOVE [id number] mg/dl BORDERLINE [id number] mg/dl HIGH>190 mg/dl VERY HIGH Cholesterol in VLDL Calc [Ma ss/Vol]on 10-09-2024 Cholesterol in VLDL [Mass/Vol] Cholesterol in VLDL [Mass/volume] in Serum or Plasma by calculation [facility] Eosinophils/100 WBC Auto (Bl d)on 10-09-2024 Eosinophils/100 WBC (Bld) Automated eosinophil % 0.9-7.0 [facility] Erythrocyte distribution wid th Auto (RBC) [Ratio]on 10-09-2024 Erythrocyte distribution width (RBC) [Ratio] Erythrocyte distribution width [Ratio] by Automated count 11.0-15.0 [facility] Estimated glomerular filtrat ion rate (GFR) non- Americanon 10-09-2024 GFR/1.73 sq M.predicted among non-blacks MDRD (S/P/Bld) [Vol rate/Area] Estimated glomerular filtration rate (GFR) non- >=60 mL/min/1.73m 2 [facility] Globulin Calc (S) [Mass/Vol] on 10-09-2024 Globulin (S) [Mass/Vol] Serum globulin measurement by calculation (mass/volume) [facility] Glucose mean value [Mass/vol ume] in Blood Estimated from glycated hemoglobinon 10-09-2024 Average glucose Estimated from glycated hemoglobin (Bld) [Mass/Vol] Glucose mean value [Mass/volume] in Blood Estimated from glycated hemoglobin [facility] Hematocrit Auto (Bld) [Volum e fraction]on 10-09-2024 Hematocrit (Bld) [Volume fraction] Hematocrit [Volume Fraction] of Blood by Automated count 36.0-48.0 [facility] Hemoglobin A1c percentageon 10-09-2024 HbA1c (Bld) [Mass fraction] Hemoglobin A1c percentage High 4.5-6.2 [facility] Comment on above: ADA RECOMMENDED LIMI T 4.0 - 6.0ADA THERAPEUTIC TARGET < 7.0ACTION SUGGESTED> 7.0 Hemoglobin [Mass/volume] in Bloodon 10-09-2024 Hemoglobin (Bld) [Mass/Vol] Hemoglobin [Mass/volume] in Blood 12.0-16.0 [facility] Laboratory - Chemistry and C hemistry - challengeon 10-09-2024 Albumin [Mass/Vol] 3.9 g/dL 3.4-5.0 [facility] ALP [Catalytic activity/Vol] 98 U/L 46-116 [facility] ALT [Catalytic activity/Vol] 22 U/L 14-59 [facility] AST [Catalytic activity/Vol] 17 U/L 15-37 [facility] Bilirubin [Mass/Vol] 0.9 mg/dL 0.2-1.0 [facility] Calcium [Mass/Vol] 9.6 mg/dL 8.5-10.1 [facility] Chloride [Moles/Vol] 103 mmol/L 98-107 [facility] Cholesterol [Mass/Vol] 185 mg/dL <=200 [facility] Cholesterol in HDL [Mass/Vol] 80 mg/dL High 40-60 [facility] Comment on above: > or =60 mg/dl - LOW CARDIOVASCULAR RISK<40 mg/dl - HIGH CARDIOVASCULAR RISK CO2 [Moles/Vol] 27.6 mmol/L 21.0-32.0 [facility] Creatinine [Mass/Vol] 0.84 mg/dL 0.55-1.02 [facility] GFR/1.73 sq M.predicted MDRD (S/P/Bld) [Vol rate/Area] mL/min/{1.73_m2} >=60 mL/min/1.73m 2 [facility] Glucose [Mass/Vol] 156 mg/dL High 74-106 [facility] Potassium [Moles/Vol] 4.3 mmol/L 3.5-5.1 [facility] Protein [Mass/Vol] 7.7 g/dL 6.4-8.2 [facility] Sodium [Moles/Vol] 140 mmol/L 136-145 [facility] Triglyceride [Mass/Vol] 68 mg/dL <=150 [facility] TSH Qn 4.409 m[IU]/L High 0.358-3.740 [facility] Urea nitrogen [Mass/Vol] 11.0 mg/dL 7.0-18.0 [facility] Urea nitrogen/Creatinine [Mass ratio] 13.1 mg/mg [facility] Laboratory - Hematology and Cell countson 10-09-2024 Immature granulocytes/100 WBC (Bld) 0.5 % 0.0-0.5 [facility] Leukocytes [#/volume] correc kendra for nucleated erythrocytes in Blood by Automated counon 10-09-2024 WBC corrected for nucl RBC Auto (Bld) [#/Vol] Leukocytes [#/volume] corrected for nucleated erythrocytes in Blood by Automated coun 4.0-11.0 [facility] Lymphocytes Auto (Bld) [#/Vo l]on 10-09-2024 Lymphocytes (Bld) [#/Vol] Lymphocytes [#/volume] in Blood by Automated count 1.2-3.8 [facility] Lymphocytes/100 WBC Auto (Bl d)on 10-09-2024 Lymphocytes/100 WBC (Bld) Lymphocytes/100 leukocytes in Blood by Automated count 20.5-60.0 [facility] MCH Auto (RBC) [Entitic mass ]on 10-09-2024 MCH (RBC) [Entitic mass] MCH [Entitic mass] by Automated count 26.7-34.0 [facility] MCHC Auto (RBC) [Mass/Vol]on 10-09-2024 MCHC (RBC) [Mass/Vol] MCHC [Mass/volume] by Automated count 29.9-35.2 [facility] MCV Auto (RBC) [Entitic vol] on 10-09-2024 MCV (RBC) [Entitic vol] MCV [Entitic volume] by Automated count 81.0-99.0 [facility] Microalbumin [Mass/volume] i n Urineon 10-09-2024 Albumin DL <= 20 mg/L (U) [Mass/Vol] Microalbumin [Mass/volume] in Urine <=30.0 [facility] Monocytes Auto (Bld) [#/Vol] on 10-09-2024 Monocytes (Bld) [#/Vol] Automated blood monocyte count High 0.3-0.8 [facility] Monocytes/100 WBC Auto (Bld) on 10-09-2024 Monocytes/100 WBC (Bld) Automated monocyte % 1.7-12.0 [facility] Neutrophils Auto (Bld) [#/Vo l]on 10-09-2024 Neutrophils (Bld) [#/Vol] Neutrophils [#/volume] in Blood by Automated count High 1.4-6.5 [facility] Neutrophils/100 WBC Auto (Bl d)on 10-09-2024 Neutrophils/100 WBC (Bld) Automated neutrophil % 43.0-75.0 [facility] No Panel Informationon 10-09 Eosinophils # (Auto) 0.3 10 3/uL 0.0-0.7 [facility] Immature Granulocyte # (Auto) 0.05 10 3/uL High 0.00-0.03 [facility] Prolactin 37.7 ng/mL Abnormal 4.8-33.4 [facility] Comment on above: Performed at: [address] [id number] Director: Joshua Jordan PhD, Phone: [phone] Urine Random Creatinine 160.10 mg/dL 20.00-300.00 [facility] Platelet mean volume Auto (B ld) [Entitic vol]on 10-09-2024 Platelet mean volume (Bld) [Entitic vol] Platelet mean volume [Entitic volume] in Blood by Automated count Low 9.5-13.5 [facility] Platelets Auto (Bld) [#/Vol] on 10-09-2024 Platelets (Bld) [#/Vol] Platelets [#/volume] in Blood by Automated count 150-450 [facility] RBC Auto (Bld) [#/Vol]on RBC (Bld) [#/Vol] Erythrocytes [#/volume] in Blood by Automated count 4.20-5.40 [facility] Serum or plasma albumin/glob ulin mass ratioon 10-09-2024 Albumin/Globulin [Mass ratio] Serum or plasma albumin/globulin mass ratio [facility] Serum or plasma anion gap de terminationon 10-09-2024 Anion gap [Moles/Vol] Serum or plasma anion gap determination [facility] Serum or plasma total choles terol/high density lipoprotein (HDL) cholesterol mass erika 10-09-2024 Cholesterol.total/Ch olesterol in HDL [Mass ratio] Serum or plasma total cholesterol/high density lipoprotein (HDL) cholesterol mass rat [facility] Comment on above: 3.3 - 4.4 LOW RISK4. 4 - 7.1 AVERAGE RISK7.1 - 11.0 MODERATE RISK>11.0 HIGH RISK Urine microalbumin/creatinin e mass ratioon 10-09-2024 Albumin/Creatinine DL <= 20 mg/L (U) [Mass ratio] Urine microalbumin/creatin ine mass ratio 0.0-29.9 [facility] Comment on above: NO MICROALBUMINURIA 0-29 MG/GCLINICAL MICROALBUMINURIA 30-300 MG/GMACROALBUMINURIA >300 MG/G XR hand RT min 3V*on 023 XR hand RT min 3V* [facility] [place] [address] XRay Report Signed Patient: Jing Gray MR#: [id number] 1 : 1975 Acct:[id number] Age/Sex: 47 / F ADM Date: 01/11/23 Loc: XDUCLY Room: Type: [facility] Attending Dr: Angélica Swann RAC SPECIALIST-C Copies to: TRINI Alvarado Ordering Provider: TRINI [...] Blake Marino M.D.01/11/2023 6:08 PM Dictation Location: [facility] Transcribed By: [facility] 01/11/231807 Dictated By: Blake Marino DO 01/11/231806 Signed By: 01/11/231807 [facility] XR hand RT min 3V* [facility] [employer] Other XR hand RT min 3V* [facility] [employer] Other XR hand RT min 3V* [address] [place] [address] [employer] Other XR hand RT min 3V* [place] [employer] Other XR hand RT min 3V* XRay Report [facility] Other XR hand RT min 3V* Signed [facility] Other XR hand RT min 3V* Patient: Jing Gray MR#: [id number] [place] [employer] Other XR hand RT min 3V* 1 [facility] Other XR hand RT min 3V* : 1975 Acct:[id number] [facility] Other XR hand RT min 3V* Age/Sex: 47 / F ADM Date: 01/11/23 [facility] Other XR hand RT min 3V* Loc: XDUCLY Room: Type: REG CLI [facility] Other XR hand RT min 3V* Attending Dr: Angélica FELIZ [facility] Other XR hand RT min 3V* Copies to: TRINI Alvarado [facility] Other XR hand RT min 3V* Ordering Provider: TRINI Alvarado [facility] Other XR hand RT min 3V* Date of Service: 01/11/23 [facility] Other XR hand RT min 3V* XR/XR hand RT min 3V*: RIGHT HAND INJURY [facility] Other XR hand RT min 3V* 3 views right hand plain film [facility] Other XR hand RT min 3V* COMPARISON: None [facility] Other XR hand RT min 3V* HISTORY: Fourth and fifth metacarpal injury [facility] Other XR hand RT min 3V* ACUTE FINDINGS: None [facility] Other XR hand RT min 3V* DEGENERATIVE CHANGE: Unremarkable [facility] Other XR hand RT min 3V* SOFT TISSUE FINDINGS: Unremarkable [facility] Other XR hand RT min 3V* JOINT EFFUSION: None [facility] Other XR hand RT min 3V* POSTOP CHANGES: None [facility] Other XR hand RT min 3V* BONY MINERALIZATION: Adequate [facility] Other XR hand RT min 3V* XR/XR hand RT min 3V* [facility] Other XR hand RT min 3V* IMPRESSION: No acute findings [facility] Other XR hand RT min 3V* Impression dictated by: Blake Marino M.D.01/11/2023 6:08 PM [facility] Other XR hand RT min 3V* Dictation Location: [place] [address] [address] [facility] [employer] Other XR hand RT min 3V* Transcribed By: PWS 01/11/23 1808 [facility] Other XR hand RT min 3V* Dictated By: Blake Marino DO 01/11/23 1803 [facility] Other XR hand RT min 3V* Signed By: [facility] Other XR hand RT min 3V* 01/11/23 180 [facility] [employer] Other PROLACTINon 01-06-2023 Prolactin 34.5 ng/mL Critically high 4.8-23.3 [facility] Comment on above: Performed By: #### P ROLAC #### [facility] [address] [address] [address] Digna Thomas CBC AUTO DIFFon 01-05-2023 BASO # 0.1 103/ul Normal 0.0-0.1 [facility] Comment on above: Performed By: #### C BC ####[facility] [id number] [place] [address]DrNile Thomas Basophils/100 WBC (Bld) 0.8 % Normal 0.2-2.0 [facility] Comment on above: Performed By: #### C BC ####[facility] [id number] [place] [id number] Thomas EO # 0.5 103/ul Normal 0.0-0.7 [facility] Comment on above: Performed By: #### C BC ####[facility] [facility] [address] [place] [address]DrNile Thomas Eosinophils/100 WBC (Bld) 5.0 % Normal 0.9-7.0 [facility] Comment on above: Performed By: #### C BC ####[facility] [address] [place] [address]Dr. Digna Thomas Erythrocyte distribution width (RBC) [Ratio] 13.0 % Normal 11.0-15.0 [facility] Comment on above: Performed By: #### C BC ####[facility] R[address]gfualzz[address] [place] [address]Dr. Digan Thomas Hematocrit (Bld) [Volume fraction] 44.6 % Normal 36.0-48.0 [facility] Comment on above: Performed By: #### C BC ####[facility] Gwgbbtrkfl[address] [place], [place] [address]Dr. Digna Thomas Hemoglobin (Bld) [Mass/Vol] 14.4 g/dL Normal 12.0-16.0 [facility] Comment on above: Performed By: #### C BC ####[facility] Deripqcftj[address] [place], [place] [address]Dr. Digna Thomas IG # 0.05 10e3/ul Critically high 0.00-0.03 [facility] Comment on above: Performed By: #### C BC ####[facility] Ufyarklxwz[address] [place], [place] [address]Dr. Digna Thomas IG % 0.5 % Normal 0.0-0.5 [facility] Comment on above: Performed By: #### C BC ####[facility] Qlxvxsnntm[address] [place], [place] [address]Dr. Digna Thomas LYMPH # 2.3 103/ul Normal 1.2-3.8 [facility] Comment on above: Performed By: #### C BC ####[facility] Xicoasevbh[address] [place], [place] [address]Dr. Digna Thomas Lymphocytes/100 WBC (Bld) 23.0 % Normal 20.5-60.0 [facility] Comment on above: Performed By: #### C BC ####[facility] O[address]cmasnvs[address] [place], [place] [address]Dr. Digna Thomas MANUAL DIFF REQ NO Normal [facility] Comment on above: Performed By: #### C BC ####[facility] [address] [place] [id number]. Digna William MCH (RBC) [Entitic mass] 28.3 pg Normal 26.7-34.0 [facility] Comment on above: Performed By: #### C BC ####[facility] [address]qpht[address] [place] [id number]. Digna William MCHC (RBC) [Mass/Vol] 32.3 g/dL Normal 29.9-35.2 [facility] Comment on above: Performed By: #### C BC ####[facility] [address] [place] [id number]. Anajs Thomas MCV (RBC) [Entitic vol] 87.8 fL Normal 81.0-99.0 [facility] Comment on above: Performed By: #### C BC ####[facility] Rvrarkupcu[address] [place], [place] [address]Dr. Digna Thomas MONO # 0.8 103/ul Normal 0.3-0.8 [facility] Comment on above: Performed By: #### C BC ####[facility] Qnyqcvnwfr[address] [place], [place] [address]Dr. Digna Thomas Monocytes/100 WBC (Bld) 7.9 % Normal 1.7-12.0 [facility] Comment on above: Performed By: #### C BC ####[facility] Hiuhqjkfvs[address] [place], [place] [address]Dr. Digna Thomas NEUT # 6.3 103/ul Normal 1.4-6.5 [facility] Comment on above: Performed By: #### C BC ####[facility] K[address] [place], [place] [id number]. Digna Thomas Neutrophils/100 WBC (Bld) 62.8 % Normal 43.0-75.0 [facility] Comment on above: Performed By: #### C BC ####[facility] Cxnfllygjp[address] [place], [place] [id number]. Digna Thomas Platelet mean volume (Bld) [Entitic vol] 9.9 fL Normal 9.5-13.5 [facility] Comment on above: Performed By: #### C BC ####[facility] [address]28[address] [place], [place] [address]Nh. Anajs Thomas PLT 223 103/ul Normal 150-450 [facility] Comment on above: Performed By: #### C BC ####[facility] B[address]lfzimi[address] [place], [place] [address]Ck. Digna Thomas RBC 5.08 106/ul Normal 4.20-5.40 [facility] Comment on above: Performed By: #### C BC ####[facility] [address]amsucbk4204 [place], [place] [address]Kz. Anajs William WBC 10.0 103/ul Normal 4.0-11.0 [facility] Comment on above: Performed By: #### C BC ####[facility] [address]shojcwd34[address] [place], [place] [address]Ga. Digna Thomas LIPID PROFILEon 01-05-2023 CHOL-HDL RATIO NORM SEE BELOW Normal [facility] Comment on above: Result Comment: 3.3 - 4.4 LOW RISK 4.4 - 7.1 AVERAGE RISK 7.1 - 11.0 MODERATE RISK >11.0 HIGH RISK Performed By: #### B MP, TSH, LIPID #### [facility] [address] [address] [address] Digna Thomas Cholesterol [Mass/Vol] 179 mg/dL Normal <=200 [facility] Comment on above: Performed By: #### B MP, TSH, LIPID #### [facility] [address] [address] [address] Digna Thomas Cholesterol in HDL [Mass/Vol] 55 mg/dL Normal 40-60 [facility] Comment on above: Performed By: #### B MP, TSH, LIPID #### [facility] [address] [address] [address] Digna Thomas Cholesterol in LDL [Mass/Vol] 103.8 mg/dL Normal [facility] Comment on above: Performed By: #### B MP, TSH, LIPID #### [facility] [address] [address] [address] Digna Thomas Cholesterol.total/Ch olesterol in HDL [Mass ratio] 3.3 {ratio} Normal [facility] Comment on above: Performed By: #### B MP, TSH, LIPID #### [facility] [address] [address] [address] Digna Thomas HDL NORMAL > or = 60 mg/dl - LOW CARDIOVASCULAR RISK <40 mg/dl - HIGH CARDIOVASCULAR RISK Normal [facility] Comment on above: Performed By: #### B MP, TSH, LIPID #### [facility] [address] [address] [address] Digna Thomas LDL CALC NORMAL SEE BELOW Normal [facility] Comment on above: Result Comment: <100 mg/dl OPTIMAL 100 - 129 mg/dl NEAR OR ABOVE OPTIMAL 130 - 159 mg/dl BORDERLINE HIGH 160 - 189 mg/dl HIGH >190 mg/dl VERY HIGH Performed By: #### B MP, TSH, LIPID #### [facility] [address] [address] [address] Digna Thomas Triglyceride [Mass/Vol] 101 mg/dL Normal <=150 [facility] Comment on above: Performed By: #### B MP, TSH, LIPID #### [facility] [address] [address] [address] Digna Thomas VLDL CALC 20.2 mg/dL Normal [facility] Comment on above: Performed By: #### B MP, TSH, LIPID #### [facility] [address] [address] [address] Digna Thomas PROF CHEM 8 (BAS METB)on Anion gap [Moles/Vol] 13.3 mmol/L Normal [facility] Comment on above: Performed By: #### B MP, TSH, LIPID #### [facility] [address] [address] [address] Digna Thomas Calcium [Mass/Vol] 9.4 mg/dL Normal 8.5-10.1 [facility] Comment on above: Performed By: #### B MP, TSH, LIPID #### [facility] [address] [address] [address] Digna Thomas Chloride [Moles/Vol] 104 mmol/L Normal 98-107 [facility] Comment on above: Performed By: #### B MP, TSH, LIPID #### [facility] [address] [address] [address] Digna Thomas CO2 [Moles/Vol] 27.1 mmol/L Normal 21.0-32.0 [facility] Comment on above: Performed By: #### B MP, TSH, LIPID #### [facility] [address] [address] [address] Digna Thomas Creatinine [Mass/Vol] 0.71 mg/dL Normal 0.55-1.02 [facility] Comment on above: Performed By: #### B MP, TSH, LIPID #### [facility] [address] [place] [address] Dr. Digna Thomas EGFR-AF COMORAN >60 Normal >=60 [facility] Comment on above: Performed By: #### B MP, TSH, LIPID #### [facility] [address] [place] [address] Dr. Digna Thomas EGFR-NON AF COMORAN >60 Normal >=60 [facility] Comment on above: Performed By: #### B MP, TSH, LIPID #### [facility] [address] [place] [address] Dr. Digna Thomas Glucose [Mass/Vol] 163 mg/dL Critically high 74-106 [facility] Comment on above: Performed By: #### B MP, TSH, LIPID #### [facility] [address] [place] [address] Dr. Digna Thomas Potassium [Moles/Vol] 4.4 mmol/L Normal 3.5-5.1 [facility] Comment on above: Performed By: #### B MP, TSH, LIPID #### [facility] [address] [place] [address] Dr. Digna Thomas Sodium [Moles/Vol] 140 mmol/L Normal 136-145 [facility] Comment on above: Performed By: #### B MP, TSH, LIPID #### [facility] [address] [place] [address] Dr. Digna Thomas Urea nitrogen [Mass/Vol] 15.0 mg/dL Normal 7.0-18.0 [facility] Comment on above: Performed By: #### B MP, TSH, LIPID #### [facility] [address] [address] [address] Digna Thomas Urea nitrogen/Creatinine [Mass ratio] 21.1 mg/mg Normal [facility] Comment on above: Performed By: #### B MP, TSH, LIPID #### [facility] [address] [address] [address] Digna Thomas TSHon 01-05-2023 TSH 3.955 uIU/mL Critically high 0.358-3.740 [facility] Comment on above: Performed By: #### B MP, TSH, LIPID #### [facility] [address] [address] [address] Digna Thomas XR CSPINE MIN 4 [...] FELIPE TRINH Date: 2022-11-04 08:02 Normal [facility] GLYCOHEMOGLOBIN A1Con 2022 ADA RECOMMENDATION SEE BELOW Normal [facility] Comment on above: Result Comment: ADA RECOMMENDED LIMIT 4.0 - 6.0 ADA THERAPEUTIC TARGET < 7.0 ACTION SUGGESTED > 7.0 Performed By: #### A 1C ####[facility] [address] [place] [address]Dr. Digna Thomas Glucose [Mass/Vol] 166 mg/dL Normal [facility] Comment on above: Performed By: #### A 1C ####[facility] [address] [place] [id number]. Digna Thomas HbA1c (Bld) [Mass fraction] 7.4 % Critically high 4.5-6.2 [facility] Comment on above: Performed By: #### A 1C ####[facility] [address] [place] [id number]. Digna Thomas PROLACTINon 07-12-2022 Prolactin 48.0 ng/mL Critically high 4.8-23.3 [facility] Comment on above: Performed By: #### P ROLAC #### [facility] [address] [address] [address] Digna Thomas CBC AUTO DIFFon 07-11-2022 BASO # 0.1 103/ul Normal 0.0-0.1 [facility] Comment on above: Performed By: #### C BC ####[facility] [address]iol[address] [place] [address]Dr. Digna Thomas Basophils/100 WBC (Bld) 0.8 % Normal 0.2-2.0 [facility] Comment on above: Performed By: #### C BC ####[facility] Jrbkcjkbtn[address] [place], [place] [address]Dr. Digna Thomas EO # 0.7 103/ul Normal 0.0-0.7 [facility] Comment on above: Performed By: #### C BC ####[facility] Lwsilospdb[address] [place], [place] [address]Dr. Digna Thomas Eosinophils/100 WBC (Bld) 5.8 % Normal 0.9-7.0 [facility] Comment on above: Performed By: #### C BC ####[facility] M[address]cgpxbty[address] [place], [place] [address]Dr. Digna Thomas Erythrocyte distribution width (RBC) [Ratio] 12.7 % Normal 11.0-15.0 [facility] Comment on above: Performed By: #### C BC ####[facility] [address] [place] [address]Dr. Digna Thomas Hematocrit (Bld) [Volume fraction] 45.4 % Normal 36.0-48.0 [facility] Comment on above: Performed By: #### C BC ####[facility] Atbkpqfuxo[address] [place], [place] [address]DrNile Thomas Hemoglobin (Bld) [Mass/Vol] 15.3 g/dL Normal 12.0-16.0 [facility] Comment on above: Performed By: #### C BC ####[facility] [address] [place] [address]DrNile Perezjs William IG # 0.04 10e3/ul Critically high 0.00-0.03 [facility] Comment on above: Performed By: #### C BC ####[facility] [address]rwvqyfy[address] [place] [address]DrNile Thomas IG % 0.3 % Normal 0.0-0.5 [facility] Comment on above: Performed By: #### C BC ####[facility] [address]vczebcixo[address] [place], [place] [address]DrNile Thomas LYMPH # 3.3 103/ul Normal 1.2-3.8 [facility] Comment on above: Performed By: #### C BC ####[facility] Hnfl[address]dvrf[address] [place], [place] [address]DrNile Thomas Lymphocytes/100 WBC (Bld) 28.1 % Normal 20.5-60.0 [facility] Comment on above: Performed By: #### C BC ####[facility] Hbrzsnqyhm[address] [place], [place] [address]DrNile Thomas MANUAL DIFF REQ NO Normal [facility] Comment on above: Performed By: #### C BC ####[facility] [address]vc[address] [place] [address]DrNile Thomas MCH (RBC) [Entitic mass] 29.2 pg Normal 26.7-34.0 [facility] Comment on above: Performed By: #### C BC ####[facility] Rfohxgukqi[address] [place], [place] [address]DrNile Thomas MCHC (RBC) [Mass/Vol] 33.7 g/dL Normal 29.9-35.2 [facility] Comment on above: Performed By: #### C BC ####[facility] Pptsujhfgv[address] [place], [place] [address]DrNile Thomas MCV (RBC) [Entitic vol] 86.6 fL Normal 81.0-99.0 [facility] Comment on above: Performed By: #### C BC ####[facility] Pr[address]zrymxm60[address] [place] [address]DrNile Digna Thomas MONO # 0.8 103/ul Normal 0.3-0.8 [facility] Comment on above: Performed By: #### C BC ####[facility] M[address]ngguzyyo5[address] [place] [address]DrNile Digna Thomas Monocytes/100 WBC (Bld) 6.4 % Normal 1.7-12.0 [facility] Comment on above: Performed By: #### C BC ####[facility] Gdvusqduyn[address] [place], [place] [address]Dr. Digna Thomas NEUT # 6.9 103/ul Critically high 1.4-6.5 [facility] Comment on above: Performed By: #### C BC ####[facility] Mkhhayfhyj4[address] [place], [place] [address]Dr. Digna Thomas Neutrophils/100 WBC (Bld) 58.6 % Normal 43.0-75.0 [facility] Comment on above: Performed By: #### C BC ####[facility] Qyhvtmskgu[address] [place], [place] [address]DrNile Digna Thomas Platelet mean volume (Bld) [Entitic vol] 10.0 fL Normal 9.5-13.5 [facility] Comment on above: Performed By: #### C BC ####[facility] Nkayvkhlof[address] [place], [place] [address]Dr. Digna Thomas PLT 242 103/ul Normal 150-450 [facility] Comment on above: Performed By: #### C BC ####[facility] Yacjmktqiz64[address] [place], [place] [address]DrNile Digna William RBC 5.24 106/ul Normal 4.20-5.40 [facility] Comment on above: Performed By: #### C BC ####[facility] Ltohgcgngp0[address] [place], [place] [address]DrNile Perezjs William WBC 11.8 103/ul Critically high 4.0-11.0 [facility] Comment on above: Performed By: #### C BC ####[facility] [address] [place] [address]Dr. Digna Thomas GLYCOHEMOGLOBIN A1Con 2021 ADA RECOMMENDATION SEE BELOW Normal [facility] Comment on above: Result Comment: ADA RECOMMENDED LIMIT 4.0 - 6.0 ADA THERAPEUTIC TARGET < 7.0 ACTION SUGGESTED > 7.0 Performed By: #### A 1C ####[facility] [address]rmdengfzf[address] [place] [address]Dr. Digna Thomas Glucose [Mass/Vol] 183 mg/dL Normal [facility] Comment on above: Performed By: #### A 1C ####[facility] Zqakaggshe[address] [place], [place] [address]Dr. Digna Thomas HbA1c (Bld) [Mass fraction] 8.0 % Critically high 4.5-6.2 [facility] Comment on above: Performed By: #### A 1C ####[facility] Kpsahazduv[address] [place], [place] [address]Dr. Digna Thomas LIPID PROFILEon 07-11-2022 CHOL-HDL RATIO NORM SEE BELOW Normal [facility] Comment on above: Result Comment: 3.3 - 4.4 LOW RISK 4.4 - 7.1 AVERAGE RISK 7.1 - 11.0 MODERATE RISK >11.0 HIGH RISK Performed By: #### B MP, LIPID, TSH ####[facility] Tcupcdhfxu[address] [place], [place] [address]Dr. Digna Thomas Cholesterol [Mass/Vol] 161 mg/dL Normal <=200 [facility] Comment on above: Performed By: #### B MP, LIPID, TSH ####[facility] [address]icz[address] [place] [id number]. Digna Thomas Cholesterol in HDL [Mass/Vol] 51 mg/dL Normal 40-60 [facility] Comment on above: Performed By: #### B MP, LIPID, TSH ####[facility] [address]qkzvneo65[address] [place] [id number]. Digna Thomas Cholesterol in LDL [Mass/Vol] 86.2 mg/dL Normal [facility] Comment on above: Performed By: #### B MP, LIPID, TSH ####[facility] Nnosqlwuoc[address] [place] [id number]. Digna Thomas Cholesterol.total/Ch olesterol in HDL [Mass ratio] 3.2 {ratio} Normal [facility] Comment on above: Performed By: #### B MP, LIPID, TSH ####[facility] [address]pvrof[address] [place] [id number]. Digna Thomas HDL NORMAL > or = 60 mg/dl - LOW CARDIOVASCULAR RISK <40 mg/dl - HIGH CARDIOVASCULAR RISK Normal [facility] Comment on above: Performed By: #### B MP, LIPID, TSH ####[facility] [address]zwgeg[address] [place] [address]Dr. Digna Thomas LDL CALC NORMAL SEE BELOW Normal [facility] Comment on above: Result Comment: <100 mg/dl OPTIMAL 100 - 129 mg/dl NEAR OR ABOVE OPTIMAL 130 - 159 mg/dl BORDERLINE HIGH 160 - 189 mg/dl HIGH >190 mg/dl VERY HIGH Performed By: #### B MP, LIPID, TSH ####[facility] [address]twshnqy[address] [place] [id number]. Digna Thomas Triglyceride [Mass/Vol] 119 mg/dL Normal <=150 [facility] Comment on above: Performed By: #### B MP, LIPID, TSH ####[facility] [address]iblefsd[address] [place] [id number]. Digna Thomas VLDL CALC 23.8 mg/dL Normal [facility] Comment on above: Performed By: #### B MP, LIPID, TSH ####[facility] [address]qrand[address] [place] [id number]. Digna Thomas MG MAMM SCREEN 3D JANE CADon 07-11-2022 MG MAMM SCREEN 3D JANE CAD Patient: JING GRAY Exam Date: 07/11/2022 : 1975 Gender:F Ordering : DR KELECHI GALVAN D.O. Admission #: [id number] Family : Order #: [id number] CLICK HERE TO VIEW EXAM RADIOLOGY REPORT [...] bladder cancer at age 51. LOCATION: [facility] BREAST COMPOSITION: Scattered areas fibroglandular density. [...] Cagle MD on 07/11/2022 at 10:14 Normal [facility] MICROALBUMIN, RAND URon 10-3 mALB 10.1 mg/L Normal <=30.0 [facility] Comment on above: Performed By: #### M ALBR #### [facility] [address] [address] [address] Digna Thomas PROF CHEM 8 (BAS METB)on Anion gap [Moles/Vol] 10.6 mmol/L Normal [facility] Comment on above: Performed By: #### B MP, LIPID, TSH ####[facility] [address]hsawgytr[address] [place] [phone]. Digna Thomas Calcium [Mass/Vol] 9.3 mg/dL Normal 8.5-10.1 [facility] Comment on above: Performed By: #### B MP, LIPID, TSH ####[facility] [address]rbjq[address] [place] [id number]. Digna Thomas Chloride [Moles/Vol] 99 mmol/L Normal 98-107 [facility] Comment on above: Performed By: #### B MP, LIPID, TSH ####[facility] Qbvwbcwlnk[address] [place] [address]Dr. Digna Thomas CO2 [Moles/Vol] 28.3 mmol/L Normal 21.0-32.0 [facility] Comment on above: Performed By: #### B MP, LIPID, TSH ####[facility] [address]zt[address]wfvp[address] [place] [address]Dr. Digna Thomas Creatinine [Mass/Vol] 0.74 mg/dL Normal 0.55-1.02 [facility] Comment on above: Performed By: #### B MP, LIPID, TSH ####[facility] [address]br[address] [place] [address]Dr. Digna Thomas EGFR-AF COMORAN >60 Normal >=60 [facility] Comment on above: Performed By: #### B MP, LIPID, TSH ####[facility] [address] [place], [place] [address]Dr. Digna Thomas EGFR-NON AF COMORAN >60 Normal >=60 [facility] Comment on above: Performed By: #### B MP, LIPID, TSH ####[facility] Fr[address]faucrjr[address] [place] [address]Dr. Digna Thomas Glucose [Mass/Vol] 190 mg/dL Critically high 74-106 [facility] Comment on above: Performed By: #### B MP, LIPID, TSH ####[facility] [address]tcih[address] [place] [address]Dr. Digna Thomas Potassium [Moles/Vol] 3.9 mmol/L Normal 3.5-5.1 [facility] Comment on above: Performed By: #### B MP, LIPID, TSH ####[facility] [address]ciqzz[address] [place] [address]Dr. Digna Thomas Sodium [Moles/Vol] 134 mmol/L Critically low 136-145 [facility] Comment on above: Performed By: #### B MP, LIPID, TSH ####[facility] [address]zeh[address] [place], [place] [address]XpNile Thomas Urea nitrogen [Mass/Vol] 13.0 mg/dL Normal 7.0-18.0 [facility] Comment on above: Performed By: #### B MP, LIPID, TSH ####[facility] [address] [place], [place] [address]IkNile Thomas Urea nitrogen/Creatinine [Mass ratio] 17.6 mg/mg Normal [facility] Comment on above: Performed By: #### B MP, LIPID, TSH ####[facility] [address]rrvov06[address] [place], [place] [address]GfNile Thomas TSHon 07-11-2022 TSH 4.084 uIU/mL Critically high 0.358-3.740 [facility] Comment on above: Performed By: #### B MP, LIPID, TSH #### [facility] [address] [place], [place] [address] Dr. Digna Thomas Vital Signs Date Time Vital Sign Value Performing Clinician Facility 12-27-2024 08:36-0400 Body height 165.1 cm [facility] 12-27-2024 08:36-0400 Body mass index (BMI) [Ratio] 50.4 kg/m2 [facility] 12-27-2024 08:36-0400 Body weight 137.43 kg [facility] 12-27-2024 08:36-0400 Diastolic blood pressure 82 mm[Hg] [facility] 12-27-2024 08:36-0400 Heart rate 66 /min [facility] 12-27-2024 08:36-0400 Respiratory rate 12 /min [facility] 12-27-2024 08:36-0400 SaO2% (BldA) [Mass fraction] 98 % [facility] 12-27-2024 08:36-0400 Systolic blood pressure 130 mm[Hg] [facility] 10-27-2024 13:58-0500 Body height 165.1 cm [facility] 10-27-2024 13:58-0500 Body mass index (BMI) [Ratio] 49.4 kg/m2 [facility] 10-27-2024 13:58-0500 Body weight 134.71 kg [facility] 10-27-2024 13:58-0500 Diastolic blood pressure 79 mm[Hg] [facility] 10-27-2024 13:58-0500 Heart rate 83 /min [facility] 10-27-2024 13:58-0500 Respiratory rate 18 /min [facility] 10-27-2024 13:58-0500 SaO2% (BldA) [Mass fraction] 99 % [facility] 10-27-2024 13:58-0500 Systolic blood pressure 125 mm[Hg] [facility] 08-23-2024 08:40-0500 Body height 165.1 cm [facility] 08-23-2024 08:40-0500 Body mass index (BMI) [Ratio] 46 kg/m2 [facility] 08-23-2024 08:40-0500 Body weight 125.36 kg [facility] 08-23-2024 08:40-0500 Diastolic blood pressure 79 mm[Hg] [facility] 08-23-2024 08:40-0500 Heart rate 66 /min [facility] 08-23-2024 08:40-0500 Respiratory rate 16 /min [facility] 08-23-2024 08:40-0500 Systolic blood pressure 127 mm[Hg] [facility] 08-18-2024 12:29-0500 Body height 165.1 cm [facility] 08-18-2024 12:29-0500 Body mass index (BMI) [Ratio] 48.4 kg/m2 [facility] 08-18-2024 12:29-0500 Body temperature 98.8 [degF] [facility] 08-18-2024 12:29-0500 Body weight 132 [facility] [facility] 08-18-2024 12:29-0500 Diastolic blood pressure 73 mm[Hg] [facility] 08-18-2024 12:29-0500 Heart rate 76 /min [facility] 08-18-2024 12:29-0500 Respiratory rate 17 /min [facility] 08-18-2024 12:29-0500 SaO2% (BldA) [Mass fraction] 97 % [facility] 08-18-2024 12:29-0500 Systolic blood pressure 125 mm[Hg] [facility] 08-07-2024 13:26-0500 Body height 165.1 cm Antione Cassy DO Work Phone: [facility] 08-07-2024 13:26-0500 Body mass index (BMI) [Ratio] 45.43 kg/m2 Antione Cassy DO Work Phone: [facility] 08-07-2024 13:26-0500 Body weight 123.83 kg Antione Cassy DO Work Phone: [facility] 08-07-2024 13:26-0500 Diastolic blood pressure 74 mm[Hg] Antione Cassy DO Work Phone: [facility] 08-07-2024 13:26-0500 Heart rate 70 /min Antione Cassy DO Work Phone: [facility] 08-07-2024 13:26-0500 SaO2% (BldA) [Mass fraction] 97 % Antione Cassy DO Work Phone: [facility] 08-07-2024 13:26-0500 Systolic blood pressure 118 mm[Hg] Antione Cassy DO Work Phone: [facility] 07-22-2024 10:35-0500 Body height 165.1 cm [facility] 07-22-2024 10:35-0500 Body mass index (BMI) [Ratio] 44.1 kg/m2 [facility] 07-22-2024 10:35-0500 Body weight 120.25 kg [facility] 07-22-2024 10:35-0500 Diastolic blood pressure 95 mm[Hg] [facility] 07-22-2024 10:35-0500 Heart rate 74 /min [facility] 07-22-2024 10:35-0500 Respiratory rate 16 /min [facility] 07-22-2024 10:35-0500 Systolic blood pressure 164 mm[Hg] [facility] 06-21-2024 11:44-0400 Body height 165.1 cm [facility] 06-21-2024 11:44-0400 Body mass index (BMI) [Ratio] 42.3 kg/m2 [facility] 06-21-2024 11:44-0400 Body weight 115.26 kg [facility] 06-21-2024 11:44-0400 Diastolic blood pressure 78 mm[Hg] [facility] 06-21-2024 11:44-0400 Heart rate 71 /min [facility] 06-21-2024 11:44-0400 Respiratory rate 12 /min [facility] 06-21-2024 11:44-0400 Systolic blood pressure 129 mm[Hg] [facility] 04-16-2024 08:34-0400 Body height 165.1 cm [facility] 04-16-2024 08:34-0400 Body mass index (BMI) [Ratio] 40.3 kg/m2 [facility] 04-16-2024 08:34-0400 Body weight 109.99 kg [facility] 04-16-2024 08:34-0400 Diastolic blood pressure 81 mm[Hg] [facility] 04-16-2024 08:34-0400 Heart rate 71 /min [facility] 04-16-2024 08:34-0400 Respiratory rate 12 /min [facility] 04-16-2024 08:34-0400 Systolic blood pressure 117 mm[Hg] [facility] 01-27-2024 13:11-0400 Body height 165.1 cm [facility] 01-27-2024 13:11-0400 Body mass index (BMI) [Ratio] 42.9 kg/m2 [facility] 01-27-2024 13:11-0400 Body temperature 97.1 [degF] [facility] 01-27-2024 13:11-0400 Body weight 117.02 kg [facility] 01-27-2024 13:11-0400 Heart rate 64 /min [facility] 01-27-2024 13:11-0400 Respiratory rate 16 /min [facility] 01-27-2024 13:11-0400 SaO2% (BldA) [Mass fraction] 97 % [facility] 01-15-2024 08:41-0400 Body height 165.1 cm [facility] 01-15-2024 08:41-0400 Body mass index (BMI) [Ratio] 43 kg/m2 [facility] 01-15-2024 08:41-0400 Body weight 117.25 kg [facility] 01-15-2024 08:41-0400 Diastolic blood pressure 79 mm[Hg] [facility] 01-15-2024 08:41-0400 Heart rate 76 /min [facility] 01-15-2024 08:41-0400 Respiratory rate 12 /min [facility] 01-15-2024 08:41-0400 Systolic blood pressure 127 mm[Hg] [facility] 11-20-2023 12:57-0400 Body height 165.1 cm [facility] 11-20-2023 12:57-0400 Body mass index (BMI) [Ratio] 46.3 kg/m2 [facility] 11-20-2023 12:57-0400 Body weight 126.26 kg [facility] 11-20-2023 12:57-0400 Diastolic blood pressure 70 mm[Hg] [facility] 11-20-2023 12:57-0400 Systolic blood pressure 122 mm[Hg] [facility] 10-17-2023 09:00-0500 Body height 165.1 cm Kelechi Ball Other [facility] [employer] Other 10-17-2023 09:00-0500 Body mass index (BMI) [Ratio] 48.49 kg/m2 Kelechi Ball Other [facility] [employer] Other 10-17-2023 09:00-0500 Body weight 132.18 kg Kelechi Ball Other [facility] [employer] Other 10-17-2023 09:00-0500 Diastolic blood pressure 88 mm[Hg] Kelechi Ball Other [facility] [employer] Other 10-17-2023 09:00-0500 Respiratory rate 12 /min Kelechi Ball Other [facility] [employer] Other 10-17-2023 09:00-0500 Systolic blood pressure 138 mm[Hg] Kelechi Ball Other [facility] [employer] Other 09-22-2023 09:00-0500 Body height 165.1 cm Kelechi Ball Other [facility] 09-22-2023 09:00-0500 Body mass index (BMI) [Ratio] 50.25 kg/m2 Kelechi Ball Other [facility] [employer] Other 09-22-2023 09:00-0500 Body weight 136.99 kg Kelechi Ball Other [facility] [employer] Other 09-22-2023 09:00-0500 Body weight 136.98 kg [facility] 09-22-2023 09:00-0500 Diastolic blood pressure 85 mm[Hg] Kelechi Ball Other [facility] 09-22-2023 09:00-0500 Respiratory rate 12 /min Kelechi Ball Other [facility] [employer] Other 09-22-2023 09:00-0500 Systolic blood pressure 136 mm[Hg] Kelechi Ball Other [facility] 08-22-2023 08:30-0500 Body height 165.1 cm Kelehci Ball Other [facility] 08-22-2023 08:30-0500 Body mass index (BMI) [Ratio] 52.95 kg/m2 Kelechi Ball Other [facility] [employer] Other 08-22-2023 08:30-0500 Body weight 144.34 kg Kelechi Ball Other [facility] [employer] Other 08-22-2023 08:30-0500 Body weight 144.33 kg [facility] 08-22-2023 08:30-0500 Diastolic blood pressure 75 mm[Hg] Kelechi Ball Other [facility] 08-22-2023 08:30-0500 Respiratory rate 12 /min Kelechi Ball Other [facility] [employer] Other 08-22-2023 08:30-0500 Systolic blood pressure 115 mm[Hg] Kelechi Ball Other [facility] 05-26-2023 09:40-0400 Body height 165.1 cm Angélica Swann Other [facility] Other 05-26-2023 09:40-0400 Body mass index (BMI) [Ratio] 51.88 kg/m2 Angélica Hue Other [facility] Other 05-26-2023 09:40-0400 Body temperature 98 [degF] Angélica Hue Other [facility] Other 05-26-2023 09:40-0400 Body weight 141.43 kg Angélica Hue Other [facility] Other 05-26-2023 09:40-0400 Diastolic blood pressure 68 mm[Hg] Angélica Hue Other [facility] Other 05-26-2023 09:40-0400 Respiratory rate 18 /min Angélica Hue Other [facility] Other 05-26-2023 09:40-0400 SaO2% (BldA) [Mass fraction] 96 % Angélica Hue Other [facility] Other 05-26-2023 09:40-0400 Systolic blood pressure 110 mm[Hg] Angélica Swann Other [facility] Other 02-28-2023 13:15-0400 Body height 165.1 cm Kelechi Ball Other [facility] Other 02-28-2023 13:15-0400 Body mass index (BMI) [Ratio] 52.55 kg/m2 Kelechi Ball Other [facility] Other 02-28-2023 13:15-0400 Body weight 143.25 kg Kelechi Ball Other [facility] Other 02-28-2023 13:15-0400 Diastolic blood pressure 77 mm[Hg] Kelechi Ball Other [facility] Other 02-28-2023 13:15-0400 Respiratory rate 12 /min Kelechi Ball Other [facility] Other 02-28-2023 13:15-0400 Systolic blood pressure 118 mm[Hg] Kelechi Ball Other [facility] Other 01-16-2023 12:30-0400 Body height 165.1 cm Kelechi Ball Other [facility] Other 01-16-2023 12:30-0400 Body mass index (BMI) [Ratio] 52.28 kg/m2 Kelechi Ball Other [facility] Other 01-16-2023 12:30-0400 Body weight 142.52 kg Kelechi Ball Other [facility] Other 01-16-2023 12:30-0400 Diastolic blood pressure 72 mm[Hg] Kelechi Ball Other [facility] Other 01-16-2023 12:30-0400 Respiratory rate 16 /min Kelechi Ball Other [facility] Other 01-16-2023 12:30-0400 Systolic blood pressure 147 mm[Hg] Kelechi Ball Other [facility] Other 01-11-2023 18:10-0400 Body height 165.1 cm Angélica Hue Other [facility] Other 01-11-2023 18:10-0400 Body mass index (BMI) [Ratio] 52.41 kg/m2 Angélica Hue Other [facility] Other 01-11-2023 18:10-0400 Body temperature 99.6 [degF] Angélica Hue Other [facility] Other 01-11-2023 18:10-0400 Body weight 142.88 kg Angélica Hue Other [facility] Other 01-11-2023 18:10-0400 Diastolic blood pressure 64 mm[Hg] Angélica Hue Other [facility] Other 01-11-2023 18:10-0400 Respiratory rate 20 /min Angélica Hue Other [facility] Other 01-11-2023 18:10-0400 SaO2% (BldA) [Mass fraction] 96 % Angélica Hue Other [facility] Other 01-11-2023 18:10-0400 Systolic blood pressure 117 mm[Hg] Angélica Swann Other [facility] Other 10-18-2022 12:00-0500 Body height 165.1 cm Kelechi [employer] Other [facility] Other 10-18-2022 12:00-0500 Body mass index (BMI) [Ratio] 52.31 kg/m2 Kelechi [employer] Other [facility] Other 10-18-2022 12:00-0500 Body weight 142.61 kg Kelechi [employer] Other [facility] Other 10-18-2022 12:00-0500 Diastolic blood pressure 84 mm[Hg] Kelechi [employer] Other [facility] Other 10-18-2022 12:00-0500 Respiratory rate 12 /min Kelechi [employer] Other [facility] Other 10-18-2022 12:00-0500 Systolic blood pressure 122 mm[Hg] Kelechi [employer] Other [facility] Other Encounters Encounter Date Encounter Type Care Provider Facility Start: 12-27-2024 End: 12-27-2024 ambulatory [facility] Work Phone: Start: 12-27-2024 End: 12-27-2024 Patient encounter procedure [facility] Work Phone: Start: 12-17-2024 Non-patient / Non-visit [facility] Work Phone: Start: 10-27-2024 End: 10-27-2024 ambulatory [facility] Work Phone: Start: 10-27-2024 End: 10-27-2024 Patient encounter procedure [facility] Work Phone: Start: 10-09-2024 Non-patient / Non-visit [facility] Work Phone: Start: 08-29-2024 Non-patient / Non-visit [facility] Work Phone: Start: 08-23-2024 End: 08-23-2024 Encounter for general adult medical examination without abnormal findings [facility] Start: 08-23-2024 End: 08-23-2024 Patient encounter procedure [facility] Work Phone: Start: 08-21-2024 [facility] Start: 08-18-2024 End: 08-18-2024 Patient encounter procedure [facility] Work Phone: Start: 08-07-2024 End: 08-07-2024 Bamboo flowsheet Antione Cassy DO Work Phone: [employer] [facility] Start: 08-07-2024 End: 08-07-2024 Bamboo flowsheet Antione Cassy DO Work Phone: [employer] [facility] Start: 08-07-2024 End: 08-07-2024 Office outpatient visit 25 minutes Antione Cassy DO Work Phone: [employer] [facility] Comment on above: REBA (obstructive sle ep apnea) (Primary Dx); Hypoxia; Hypersomnia; Obesity due to excess calories, unspecified class, unspecified whether serious comorbidity present; Snoring Start: 08-07-2024 End: 08-07-2024 ambulatory ANTIONE CASSY Not Available Start: 07-22-2024 End: 07-22-2024 ambulatory [facility] Work Phone: Start: 07-22-2024 End: 07-22-2024 Patient encounter procedure [facility] Work Phone: Start: 06-21-2024 End: 06-21-2024 ambulatory [facility] Work Phone: Start: 06-21-2024 End: 06-21-2024 Patient encounter procedure [facility] Work Phone: Start: 04-16-2024 End: 04-16-2024 ambulatory [facility] Work Phone: Start: 04-16-2024 End: 04-16-2024 Patient encounter procedure [facility] Work Phone: Start: 01-27-2024 End: 01-27-2024 ambulatory [facility] Work Phone: Start: 01-27-2024 End: 01-27-2024 Patient encounter procedure [facility] Work Phone: Start: 01-15-2024 End: 01-15-2024 ambulatory [facility] Work Phone: Start: 01-15-2024 End: 01-15-2024 Patient encounter procedure [facility] Work Phone: Start: 11-27-2023 End: 11-28-2023 ambulatory Joe Becerra MD Facility:[facility] Start: 11-20-2023 Non-patient / Non-visit [facility] [employer] Work Phone: Start: 10-27-2023 End: 10-27-2023 ambulatory [facility] Work Phone: Start: 10-27-2023 End: 10-27-2023 Patient encounter procedure [facility] Work Phone: Start: 10-20-2023 End: 10-20-2023 ambulatory Kelechi Cole Other [facility] [employer] Other Start: 10-20-2023 Encounter by alysha Galvan [facility] Start: 10-17-2023 End: 10-17-2023 ambulatory Kelechi Galvan Other [facility] Other Start: 10-17-2023 Office outpatient vi sit 15 minutes Kelechi Ball [facility] Start: 09-22-2023 End: 09-22-2023 ambulatory Kelechi Galvan Other [facility] Other Start: 09-22-2023 Office outpatient vi sit 15 minutes Kelechi Ball [facility] Start: 09-22-2023 End: 09-22-2023 Patient encounter procedure [facility] Work Phone: Start: 09-08-2023 End: 09-08-2023 ambulatory Kelechi Galvan Other [facility] Other Start: 09-08-2023 Telephone encounter Kelechi Galvan [facility] Start: 08-28-2023 End: 08-28-2023 ambulatory Kelechi Galvan Other [facility] Other Start: 08-28-2023 Telephone encounter Kelechi Galvan [facility] Start: 08-26-2023 End: 08-26-2023 ambulatory Kelechi Galvan Other [facility] Other Start: 08-26-2023 Telephone encounter Kelechi Galvan [facility] Start: 08-22-2023 End: 08-22-2023 ambulatory Kelechi Galvan Other [facility] Other Start: 08-22-2023 Encounter for genera l adult medical examination without abnormal findings Kelechi Galvan [facility] Start: 08-22-2023 Periodic preventive med est patient 40-64yrs Kelechi Galvan [facility] Start: 08-22-2023 End: 08-22-2023 Patient encounter procedure [facility] Work Phone: Start: 05-26-2023 End: 05-26-2023 ambulatory Angélica Swann Other [facility] Other Start: 05-26-2023 Office outpatient vi sit 15 minutes Angélica Swann [facility] Start: 04-18-2023 End: 04-18-2023 ambulatory Kelechi Galvan Other [facility] Other Start: 04-18-2023 Office outpatient vi sit 15 minutes Kelechi Galvan [facility] Start: 02-28-2023 End: 02-28-2023 ambulatory Kelechi Galvan Other [facility] Other Start: 02-28-2023 Office outpatient vi sit 15 minutes Kelechi Galvan [facility] Start: 01-19-2023 End: 01-19-2023 ambulatory Kelechi Galvan Other [facility] Other Start: 01-19-2023 Telephone encounter Kelechi GRANDA [facility] Start: 01-16-2023 End: 01-16-2023 ambulatory Kelechi Galvan Other [facility] Other Start: 01-16-2023 Office outpatient vi sit 25 minutes Kelechi Galvan [facility] Start: 01-11-2023 End: 01-11-2023 Patient encounter procedure RAC SPECIALIST-C Angélica Swann Work Phone: [facility] Work Phone: Start: 01-11-2023 End: 01-11-2023 ambulatory Angélica Swann [facility] Work Phone: Start: 01-11-2023 Office outpatient vi sit 15 minutes Angélica Swann [facility] Start: 01-11-2023 Telephone encounter Kelechi GRAN[facility] Start: 01-09-2023 Encounter for genera l adult medical examination without abnormal findings DR KELECHI GALVNA [facility] Start: 01-05-2023 End: 01-06-[address] KELECHI GALVAN Facility:[facility] Start: 01-05-2023 End: 01-06-2023 Encounter for general adult medical examination without abnormal findings DR KELECHI GALVAN Facility:[facility] Start: 01-03-2023 End: 01-03-2023 ambulatory Kelechi Galvan Other [facility] Other Start: 01-03-2023 Encounter for genera l adult medical examination without abnormal findings Kelechi Cole [facility] Start: 01-03-2023 Patient encounter status Conrad Galvan Other [facility] Other Start: 01-03-2023 Telephone encounter Kelechi Galvan [facility] Start: 12-21-2022 End: 12-22-[address] KELECHI GALVAN Facility:[facility] Start: 12-08-2022 End: 12-09-[address] KELECHI GALVAN Facility:[facility] Start: 11-23-2022 End: 11-23-2022 ambulatory Kelechi Galvan Other [facility] Other Start: 11-23-2022 Telephone encounter Kelechi Galvan [facility] Start: 11-16-2022 End: 11-17-[address] KELECHI GALVAN Facility:[facility] Start: 11-09-2022 End: 11-24-[address] KELECHI GALVAN Facility:[facility] Start: 11-03-2022 End: 11-04-[address] KELECHI GALVAN Facility:[facility] Start: 10-27-2022 End: 10-28-[address] KELECHI GALVAN [facility] Other Start: 10-27-2022 Telephone encounter Kelechi Galvan [facility] Start: 10-18-2022 End: 10-18-2022 ambulatory Kelechi Galvan Other [facility] Other Start: 10-18-2022 Office outpatient vi sit 25 minutes Kelechi Galvan [facility] Start: 10-07-2022 End: 10-07-2022 ambulatory Kelechi Galvan Other [facility] Other Start: 10-07-2022 Telephone encounter Kelechi Galvan [facility] Start: 08-26-2022 Adult health examination Conradlinda Galvan Other [facility] Other Start: 07-11-2022 End: 07-12-[address] KELECHI GALVAN Facility:[facility] Start: 04-07-2022 End: 04-08-[address] DEANN ELIAS . Facility:[facility] Start: 07-28-2019 Pre-procedure evalua tion check Kelechi Galvan Other [facility] Other Start: 07-17-2018 Gynecological examination normal Kelechi Galvan Other [facility] Other Procedures Date Procedure Procedure Detail Performing Clinician Start: 01-11-2023 Plain X-ray of right hand RAC SPECIALIST-C Angélica Swann Work Phone: Start: 01-18-2019 [...] 08/07/2024 1:30 PM EST Office Visit [facility] [address] [place] [address] Antione Madera DO [address] [id number] Arrived [facility] [address] [facility] Comment on above: Arrived Start: 03-09-2023 ambulatory Ambulatory Facility:[facility] 1 Comprehensive metabo lic 2000 panel - Serum or Plasma [facility] MG Breast - bilatera l Screening [facility] Payers Date Payer Category Payer Unknown 2023 Self-pay 2021 Private Health Insurance [employer] [id number] 1974 Unknown [id number] [id number]. 593 1974 Unknown [id number] [id number]. 593 1974 Unknown [id number] 2.16.840.1.791456.3.579.2. 593 1974 Unknown [id number] [id number]. 593 1974 Unknown [id number] 2.16.840.1.479621.3.579.2. 593 1974 Unknown [id number] 2.16.840.1.640549.3.579.2. 593 1974 Unknown [id number] 2.16840.1.330458.3.579.2. 593 1974 Unknown [id number] 2.16.840.1.024031.3.579.2. 593 1974 Unknown [id number] 2.16.840.1.947451.3.579.2. 593 1974 Unknown [id number] 2.16.840.1.502751.3.579.2. 593 1974 Unknown [id number] 2.16.840.1.688841.3.579.2. 593 1974 Unknown [id number] 2.16.840.1.190423.3.579.2. 196 1974 Unknown [id number] 2.16.840.1.732024.3.579.2. 1259 1959 Unknown [id number] [id number] 1959 Unknown [id number] Medicaid [employer] [id number] Unknown [id number] [id number]. 531 Unknown [place] BC/BS [id number] Social History Date Type Detail Facility Unknown if ever smoked [place] [employer] Other Start: 08-07-2024 Sex Assigned At [place] [employer] Other Start: 1975 [facility] Start: 05-16-2018 End: 05-16-2018 Tobacco smoking status [facility] Never smoked tobacco (finding) [facility] Start: 01-27-2024 End: 01-27-2024 Tobacco smoking status [facility] Ex-smoker (finding) [facility] Start: 07-22-2024 End: 12-27-2024 Sex Female (finding) [facility] Tobacco smoking stat us [facility] Tobacco smoking consumption unknown [facility] Start: 1975 Sex assigned at Not on file [facility] Start: 09-11-1988 End: 09-11-2003 History of tobacco use Current smoker [facility] Start: 09-11-1988 End: 09-11-2003 History of tobacco use Cigarette Smoker [facility] Start: 08-07-2024 Cigarettes smoked current (pack per day) - Reported 1.5 [facility] Start: 08-07-2024 Tobacco use and exposure Smokeless tobacco non-user [facility] Start: 08-07-2024 Alcoholic beverage intake Lifetime non-drinker (finding) [facility] Medical Equipment Procedure Code Equipment Code [...] 06-10-2024 End: 06-10-2024 Clinical Notes 05-31-2011 to 10-27-2024 Note Date & Type Note Facility 10-27-2024 Evaluation note Diagnosis Onset Date Resolution Lumbar radiculopathy noneactive Febr [id number] 1:38pm Lumbar spondylosis acute December 27, 2024 8:24am [facility] Work Phone: 1(110) 871-578912-08-2024 Evaluation note* Diagnosis Onset Date Resolution Status Admit Date Otitis media noneactive August 12:19pm Insomnia acute August 23, 2024 8:26am Major depression acute August 23, 2024 8:26am Obesity acute August 23, 2024 8:26am REBA (obstructive sleep apnea) acute August 23, 2024 8:26am Primary hypertension acute Dece 2023 8:26am Prolactinoma acute August 8:26am Screening mammogram for breast cancer acute August 23, 2 024 8:26am Type 2 diabetes mellitus wit h hyperglycemia acute August 23 024 8:26am Wellness examination acute Dece 2023 8:26am [facility] Work Phone: 1(211) 306-317311-27-2024 History of Present illness Narrative* Antione Madera [...] minutes and residual AHI of 0.3. Her [place] Sleepiness scale is a 3. She does have underlying obesity but is trying to work hard with diet exercise and weight loss. Shelost about 70 lb but gained a litte bit back and knows she needs to get back on her regular programas she was doing very well. Plan Compliance data was reviewed with her and she is compliant [place] Sleepiness scale is 3 Continue use the CPAP machine whenever sleeping Get back on the diet and exercise regimen The patient was counseled on the need for aggressive diet, exercise, and weight loss. The patient was counseled on proper sleep hygiene and adequate hours of sleep. The patient was counseled on the risks of stroke, MD, and sudden with REBA, along with the [...] to clinic: 1 year documented in this [facility] [id number] Evaluation note* Diagnosis Onset Date Resolution Status Admit Date Carpal tunnel syndrome of right wrist acute June 21 11:38am Insomnia acute June 21, 2024 11:38am Major depression acute June 21, 2024 11:38am Panic attack acute June 11:38am Insomnia acute July 22, 2024 10:19am Major depression acute July 22, 2024 10:19am Panic attack acute July 10:19am [facility] Work Phone: 1(960) 907-629002-09-2024 Evaluation note* Encounter Date Diagnosis Assessment Notes Treatment Notes Treatment Clinical Notes Oct, Morbid (severe) obesity due to excess calories (ICD-10 - E66.01) [facility] Other 02-06-2024 Evaluation note* Encounter Date Diagnosis [...] index [BMI] 50.0-59.9, adult (ICD-10 - Z68.43) [facility] Other 01-12-2024 Evaluation note* Encounter Date Diagnosis [...] index [BMI] 50.0-59.9, adult (ICD-10 - Z68.43) [facility] Other 12-29-2023 Evaluation note* Encounter Date Diagnosis Assessment Notes Treatment Notes Treatment Clinical Notes Aug, Prolactinoma (ICD-10 - D35.2) MRI < 10mm, prolactin 80 - 2022 [facility] Other 12-16-2023 Evaluation note* Encounter Date Diagnosis Assessment Notes Treatment Notes Treatment Clinical Notes Aug, Hyperprolactinemia (ICD-10 - E22.1) [facility] Other [id number] Evaluation note* Encounter Date Diagnosis Assessment Notes [...] use, the patient reduces the risk for MD, CVA, HTN, cardiac dysrhythmias and sudden cardiac [...] patient on monthly SBE and yearly mammograms. [facility] Other 09-15-2023 Evaluation note* Encounter Date Diagnosis [...] thoracic region, initial encounter (ICD-10 - S29.019A) [facility] Other 08-08-2023 Evaluation note* Encounter Date Diagnosis Assessment Notes Treatment Notes Treatment Clinical Notes Apr, Sharmin-menopausal (ICD-10 - N95.1) Recommend scheduling appt w/ Clinical Research Nurse Coordinator. Apr, Primary hypertension (ICD-10 - I10) This [...] use, the patient reduces the risk for MD, CVA, HTN, cardiac dysrhythmias and sudden cardiac deaths.The patient is also aware of the association between REBA and morning headaches, daytime somnolence, fatigue and obesity, which also has been improved with continued use.The patient is compliant with treatment, wearing the equipment every night for greater than 4 hours.The patient is instructed to continue use of the CPAP for REBA treatment. [facility] Other 06-20-2023 Evaluation note* Encounter Date Diagnosis Assessment Notes Treatment Notes Treatment Clinical Notes Feb, Seborrheic dermatitis of scalp (ICD-10 - L21.9) Keep clean, avoid scratching Stop using Mupirocin Initiate topical steroid ointment Feb, Primary hypertension (ICD-10 - I10) This patient is instructed to consume a healthy, low-fat, low-salt diet. They are also encouraged to continue exercise to achieve/maintain a normal BMI. [facility] Other 05-11-2023 Evaluation note* Encounter Date Diagnosis Assessment Notes Treatment Notes Treatment Clinical Notes January, Type 2 diabetes mellitus with hyperglycemia, without long-term current use of insulin (ICD-10 - E11.65) [facility] Other 05-08-2023 Evaluation note* Encounter Date Diagnosis [...] G47.33) AHI 104 w/ Psat 68%, BiPAP 21/, full facial mask This patient is aware of the benefits associated with REBA: With continued use, the patient reduces the risk for MD, CVA, HTN, cardiac dysrhythmias and sudden cardiac [...] visual defects. January, Hyperprolactinemia (ICD-10 - E22.1) [facility] Other 05-03-2023 Evaluation note* Encounter Date Diagnosis Assessment Notes Treatment Notes Treatment Clinical Notes January, REBA (obstructive sleep apnea) (ICD-10 - G47.33) AHI 104 w/ Psat 68%, BiPAP , full facial mask [facility] Other 05-03-2023 Evaluation note* Encounter Date Diagnosis [...] no improvement in 2 to 3 days [facility] Other 04-25-2023 Evaluation note* Encounter Date Diagnosis Assessment Notes Treatment Notes Treatment Clinical Notes Dec, Type 2 diabetes mellitus with hyperglycemia, without long-term current use of insulin (ICD-10 - E11.65) Dec, Primary hypertension (ICD-10 - I10) Dec, Wellness examination (ICD-10 - Z00.00) [facility] Other 03-30-2023 NoteCONSULTATION CONSULTATION DATE: 12/08/2022 TO: [...] this point for her residual pain symptoms.[id number] Evaluation note* Encounter Date Diagnosis Assessment Notes Treatment Notes Treatment Clinical Notes Nov, REBA (obstructive sleep apnea) (ICD-10 - G47.33) AHI 101 w/ Psat 79% [facility] Other 03-15-2023 Evaluation note* Encounter Date Diagnosis Assessment Notes Treatment Notes Treatment Clinical Notes Nov, REBA (obstructive sleep apnea) (ICD-10 - G47.33) AHI 104 w/ Psat 68% [facility] Other 02-23-2023 NotePAIN MANAGEMENT CONSULTATION CONSULTATION DATE: [...] four weeks' time or sooner if needed.[facility] 11-03-2022 NotePAIN MANAGEMENT CONSULTATION CONSULTATION DATE: [...] on his response to change in medication.[facility] 10-18-2022 Evaluation note* Encounter Date Diagnosis [...] (ICD-10 - R29.818) Referral for sleep study [facility] Other 07-28-2022 NoteCONSULTATION CONSULTATION DATE: 04/07/2022 HISTORY [...] Patient states understanding and all questions answered.[id number] History general Narrative - Reported* Type Description Date Medical History hypertension Medical History back pain Medical History degenerative disc disease Medical History Prolactinoma Medical History asthma Surgical History C section 05/31/2011 Surgical History IVF 12/01/2008 Surgical History hysterectomy laps assisted 04-2 007 Surgical History right foot sx (planter) Hospitalization History see above Hospitalization History blood transfusion 09/2014 [facility] [employer] Other Chief complaint+Reason for visit Narrative* Chief Complaint COVID+ Amb Documentation 3 month follow up Reason for Visit COVID-19 Lumbar spondylosis REBA (obstructive sleep apnea) Primary hypertension Type 2 diabetes mellitus with hyperglycemia [facility] Work Phone: Evaluation [facility]No [facility] [employer] Other Evaluation noteNo assessment information available [facility] Work Phone: Evaluation note* Diagnosis Onset Date Resolution Status Type 2 diabetes mellitus with hyperglycemia acute COVID-19 noneactive [facility] Work Phone: Evaluation note* Diagnosis Onset Date Resolution Status COVID-19 noneactive Lumbar spondylosis acute REBA (obstructive sleep apnea) acute Primary hypertension acute Type 2 diabetes mellitus with hyperglycemia acute [facility] Work Phone: Evaluation note* Diagnosis Onset Date Resolution Status Obesity acute Primary hypertension acute Type 2 diabetes mellitus with hyperglycemia acute [facility] Work Phone: Evaluation note* Diagnosis Onset Date Resolution Status Right otitis media with effusion acute Obesity acute Primary hypertension acute Type 2 diabetes mellitus with hyperglycemia acute [facility] Work Phone: Evaluation note* Diagnosis Onset Date Resolution Status Obesity acute REBA (obstructive sleep apnea) acute Palpitation acute Primary hypertension acute Type 2 diabetes mellitus with hyperglycemia acute [facility] Work Phone: Evaluation note* Diagnosis REBA [...] see above Hospitalization History blood transfusion 09/2014 [facility] Other Summary Purpose Family History Relationship Condition [...] 2024 8:26am Screening mammogram for breast cancer [facility] 2023 8:26am Type 2 diabetes mellitus with hyperglyce wiliam August 23, 2024 8:26am Wellness examination August 23, 2024 8:26am Chief Complaint Admit Date left hip pain unk injury October 27, 2024 1:38pm 4 month f/u December 27, 2024 8:2 4am Reason for Visit Admit Date Lumbar radiculopathy October 27, 2024 1:38pm Lumbar spondylosis December 27, 2024 8:2 4am Additional Source Comments REASON FOR VISIT (unrecogniz ed section and content) Reason Comments Sleep Apnea INFORMATION SOURCE (unrecogn ized section and content) DATE CREATED AUTHOR 01/11/2023 [facility] DATE CREATED AUTHOR AUTHOR'S ORGANIZ ATION 01/12/2023 [facility] DATE CREATED AUTHOR AUTHOR'S ORGANIZ ATION 01/01/2024 [facility] DATE CREATED AUTHOR AUTHOR'S ORGANIZ ATION 08/10/2024 [facility] EPIC Care Teams (unrecognized sec [...] October 27, 2024 End: October 27, 2024 Team Status: Active Member Role Status Alan Galvan DO Primary Care Provide r, Attending Provider Active Start: December 17, 2024 Team Status: Inactive Member Role Status Alan Galvan DO Primary Care Provide r, Attending Provider Active Start: December 27, 2024 End: December 27, 2024 Team Status: Active Member Role Status Alan Galvan DO Primary Care Provider Active Team Status: Inactive Member Role Status Alan Galvan DO Primary Care Provider Active Start: January 27, 2024 End: January 27, 2024 Yessenia Rich APRN Attending Provider Active Start: January 27, 2024 End: January 27, 2024 Team Status: Inactive Member Role Status Alan Galvan DO Primary Care Provide r, Attending Provider Active Start: April 16, 2024 End: April 16, 2024 Team Status: Active Member Role Status Alan Galvan DO Primary Care Provider Active Start: November 20, 2023 Sheela Garrett LPN Attending Provider Active S tart: November 20, 2023 Team Status: Inactive Member Role Status Alan Galvan DO Primary Care Provide r, Attending Provider Active Start: January 15, 2024 End: January 15, 2024 Team Status: Inactive Member Role Status Dates TRINI Lenz Attending Provider Active Team Status: Inactive Member Role Status Alan [...] July 22, 2024 End: July 22, 2024 Nanotechnology Technician Relationship Specialty Start Date End Date Kelechi Galvan MD [address] [place] [address] PCP - General Internal Medicine 05/25/23 Nanotechnology Technician Relationship Specialty Start Date End Date Kelechi Galvan MD [address] [place] [address] PCP - General Internal Medicine 05/25/23 Team Status: Inactive Member Role Status Dates Kelechi Galvan DO Primary Care Provider Active Start: August 18, [...] October 27, 2024 End: October 27, 2024 Team Status: Active Member Role Status Dates Kelechi Galvan DO Primary Care Provide r, Attending Provider Active Start: December 17, 2024 Team Status: Inactive Member Role Status Dates Kelechi Galvan , DO Primary Care Provide r, Attending Provider Active Start: December 27, 2024 End: December 27, 2024 Goals (unrecognized section and content) [...] BE BASED ON THE PRIMARY CLINICAL RECORDS. [facility] [employer] provides no warranty or guarantee of the accuracy or completeness of information in this document.
[2025-02-06 19:57] VITALS: BP 175/78; PULSE 66; TEMP 36.9; O2SAT 97; BMI 51.6
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
[2025-02-06] MEDS: HYDROXYZINE PAMOATE 25 MG CAPSULE PO (21:16)
--- NOTE | 2025-02-06 21:17 | PC.NURSE ---
Spoke to elda from [facility]. She states patient is going to follow up outpatient tomorrow. [facility] would like patient prescribed a few days worth of an anxiety medication patient can take at night time. physician notified.
== END 2025-02-06 21:36 | disposition home or self-care (01) ==
PROVIDERS: Emergency Provider Emergency Medicine; PCP Internal Medicine
DX: F32.A Depression, unspecified (principal); E11.9 Type 2 diabetes mellitus without complications; Z79.84 Long term (current) use of oral hypoglycemic drugs
CPT/HCPCS: 99283; Q0177

== ENCOUNTER 2025-03-20 12:29 | Outpatient (OUT) | payer BC, OTHER, SELFPAY ==
--- NOTE | 2025-03-20 12:42 | PM.CN ---
Consult Note: HPI Data of Consult Patient: known to practice within the last 3 years Requesting Physician: Jeny Manley NP Primary Care Provider: Kelechi Galvan DO Consult Narrative Reason for consult: neck/back pain Narrative: Jing Gray a pleasant 49 year old female presents for evaluation of chronic neck and low back pain. pt has failed to benefit from > 6 weeks of HEP/PT, heat, ice, tylenol, NSAIDs. Since last visit was able to complete her lumbar MRI which shows degenerative changes, facet arthropathy, and lumbar stenosis. At last visit the pt was having severe uncontrollable low back pain, which resolved within 2 weeks of last appointment per pt. Since then she has continued to endure mild to moderate aching low back pain, increasing with standing, walking, stairs, bending, and sleep. Pain today 4/10 increasing to 7/10. cc:: CC: Jeny Manley NP Review of Systems ROS Musculoskeletal Reports: back pain; Denies: extremity pain PFSH PFSH Medical History In vitro fertilization ?Z31.83 - Encounter for assisted reproductive fertility procedure cycle (ICD-10) Diabetes ?E11.9 - Type 2 diabetes mellitus without complications (ICD-10) HTN (hypertension) ?I10 - Essential (primary) hypertension (ICD-10) Surgical History History of dilation and curettage ?Z98.890 - Other specified postprocedural states (ICD-10) History of tubal ligation ?Z98.51 - Tubal ligation status (ICD-10) History of hysteroscopy ?Z98.890 - Other specified postprocedural states (ICD-10) Previous section ?Z98.891 - History of uterine scar from previous surgery (ICD-10) History of fasciotomy ?Z98.890 - Other specified postprocedural states (ICD-10) History of laparoscopy ?Z98.890 - Other specified postprocedural states (ICD-10) Social History Little interest or pleasure in doing things: more than half the days Feeling down, depressed, or hopeless: more than half the days Meds Home Medications and Allergies Home Medications ?Medication ?Instructions ?Recorded ?Confirmed ?Type atenolol 50 mg tablet 50 mg PO DAILY 03/09/23 02/06/25 History furosemide 20 mg tablet 20 mg PO DAILY 03/09/23 02/06/25 History lisinopril 5 mg tablet 5 mg PO DAILY 03/09/23 02/06/25 History metformin 1,000 mg tablet 1,000 mg PO QDAY 03/09/23 02/06/25 History potassium chloride 10 mEq 10 meq PO DAILY 03/09/23 02/06/25 History tablet,extended release (Klor-Con) tizanidine 4 mg tablet See Rx Instructions .Route 11/26/24 02/06/25 Rx .COMPLEX PRN muscle spasticity #225 tabs ibuprofen 600 mg tablet 600 mg PO DAILY PRN pain 12/04/24 02/06/25 History oxycodone-acetaminophen 5 mg-325 1 tab PO TID PRN pain, 01/08/25 02/06/25 Rx mg tablet (Percocet) moderate-severe #21 tabs bupropion HCl 300 mg 24 hr tablet, 300 mg PO QDAY 02/06/25 02/06/25 History extended release escitalopram oxalate 10 mg tablet 10 mg PO QDAY 02/06/25 02/06/25 History lorazepam 1 mg tablet (Ativan) 1 mg PO .qhs PRN insomnia and/or 02/06/25 Rx anxiety #10 tabs tizanidine 4 mg capsule See Rx Instructions .Route 02/20/25 Rx .COMPLEX PRN muscle spasticity #225 caps Allergies Allergy/AdvReac Type Severity Reaction Status Date / Time Penicillins Allergy Rash Verified 02/06/25 19:53 Exam Constitutional Documenting provider has reviewed patient's vital signs: yes Common normals: no apparent distress, oriented x3, healthy appearing, alert and well nourished General appearance: cooperative HENMT Common normals: normocephalic, hearing grossly normal bilaterally and moist oral mucous membranes Head and scalp: normocephalic Eye Common normals: PERRL Pupil: PERRL Neck & C-Spine Common normals: full ROM General: normal visual inspection Cervical spine: cervical ROM abnormal and pain with cervical ROM Chest Common normals: inspection of chest normal Respiratory Common normals: normal respiratory effort, no retractions and no use of accessory muscles Back & Pelvis Thoracic spine/upper back: thoracic spinal tenderness T-spine tenderness location: T11 and T12 Lumbar spine/lower back: ROM limited, pain with ROM, lumbar spinal tenderness Lumbar spinal tenderness location: L1, L2 and L3, paraspinal muscle tenderness and straight leg raise negative bilaterally; no paraspinal muscle spasm Other: strength 5/5 in BLE sensation intact BLE Neuro Common normals: oriented x3 Sensorium/orientation: alert Psych Common normals: mental status grossly normal, thought process normal, cooperative, affect normal, speech normal and activity/motor behavior normal Speech: normal speech Thought process: normal thought process Results Additional Findings Additional findings: If on a controlled substance or opioids, I have checked an [place] report on this patient and there are no aberrancies noted in the prescribing history.??If on a controlled substance or opioid a drug screen was completed and reviewed within the last year, and if there has not been a drug screen completed we ordered one today to monitor higher risk, state monitored pain medication use. As part of providing excellent, safe, comprehensive care, the following was completed at our patient's visit: 1. A medication reconciliation and review to ensure accurate knowledge of current/active medications, including asking our patients to inform us about any [id number] medications or herbal remedies/nutritional supplements/alternative remedies. 2. A review to specifically ensure our patients have had annual screening for screening for depression, screening for tobacco use, and screening for unhealthy alcohol use. For concerning screenings had a discussion with the patient, provided patient education, and recommended follow-up with primary care provider when appropriate. If patient noted with a risk of falling, they received education on strength, gait, and balance training to prevent future risk of falling. Portions of this note may have been carried over from the previous visit and updated as appropriate. Please note this office utilizes paper charting in addition to the electronic medical record. A list of current medications, vitals, and PMH is available there as the clinical staff outside of myself do not have access to [facility] charting during the clinic day operations. As part of providing quality comprehensive care the current medications, vitals, and PMH were reviewed in the paper chart. Assessment and Plan Assessment and Plan (1) Lumbar spondylosis: Assessment and Plan: The patient has had over 3 months of moderate to severe low back pain with functional impairment and inadequate response to conservative care including NSAIDS (unless there are contraindication such as concurrent blood thinners), multiple oral or topical pain medications, and home exercise program/physical therapy.? Patient has completed >6 weeks of guided home exercise program and/or formal physical therapy program without relief of their symptoms.? The Oswestry Disability Index was completed, and the patient scored a 31%.? The patient noted the following:?? moderate to severe pain with ADLs, sitting, standing, walking, sleeping, social life, travel We discussed the risks and benefits of the procedure with the patient, and we are NOT planning on using sedation as outlined in the guidelines from Medicare unless there is a documented reason that sedation would be strongly recommended.?? ?The procedure will be completed with fluoroscopic guidance.? (2) Vertebrogenic pain: (3) Discogenic lumbar pain: (4) Chronic myofascial pain: Plan 49 year old female with chronic low back pain unresponsive to greater than 6 weeks of provider guided HEP, heat, ice, tylenol, NSAIDs. pt would like to repeat bilateral T12/L1 L2/3 facet RFA for axial low back pain, noted at least 50% improvement in pain and functional ability greater than 6 months from prior RFA with Dr Becerra completed on 11-27-23. Will prescribe 15mg po valium for procedural anxiety, risks vs benefits reviewed. continue current medications, encouraged to trial 1/2 tab of percocet 5-325mg TID PRN moderate to severe pain. goal to wean after RFA. f/u 1 month after RFA complete
== END 2025-03-20 12:30 | disposition home or self-care (01) ==
LOC: PM 12:29
PROVIDERS: PCP Internal Medicine; Visit Provider Nurse Practitioner
DX: M47.816 Spondylosis without myelopathy or radiculopathy, lumbar region (principal); M54.50 Low back pain, unspecified; M79.18 Myalgia, other site
CPT/HCPCS: G0463

== ENCOUNTER 2025-04-14 10:23 | Day surgery (SDC) | payer BC, OTHER, SELFPAY ==
[2025-04-14 10:31] VITALS: BP 133/69; PULSE 75; TEMP 37; O2SAT 97
--- OUTSIDE RECORDS SUMMARY | 2025-04-14 10:33 | XMS_ITS | CCD ---
Author Organization [facility] CliniSytn Care Team Providers Care Public Stenographer Name Role Phone Kelechi Galvan Unavailable COLE, DR CULVER Primary Care Unavailable LAKSHMIPATHY ., NARENDRANATH Admitting Bebe vailable LAKSHMIPATHY ., NARENDRANBRUCE Consulting Bebe vailable LAKSHMIPATHY ., NARJULIANO Attending Bebe vailable ELIAS ., DR DEANN [...] vailable LAKSHMIPATHY ., NARENDRANATH Attending Bebe vailable ZIEBER, DR FELIPE Santiago Consulting Unavailable LAKSHMIPATHY ., ERINN Consulting Bebe vailable BALL, DR CULVER Primary Care Unavailable BALL, DR CULVER Consulting Unavailable BALL, DR CULVER Attending Unavailable BALL, DR CULVER Admitting Unavailable BALL, DR CULVER Consulting Unavailable COLE, DR CULVER Attending Unavailable BALL, DR CULVER Primary Care Unavailable BALL, DR CULVER Admitting Unavailable WEST, DR ANGELA Orellana Consulting Unavailable BALL, DR CULVER Consulting Unavailable BALL, DR CULVER Attending Unavailable BALL, DR CULVER Admitting Unavailable BALL, DR CULVER Primary Care Unavailable COLE, DR CULVER Primary Care Unavailable LAKSHMIPATHY ., NARENDRANATH Admitting Bebe vailable FRANCISCO J ., NARENDRANATH Attending Bebe vailable Angélica Swann Unavailable TRINI Swann Attending Provider [phone] Hernan BURGESS, Joe Ko Attending Unavailable Kelechi Galvan MD Primary Care Provider ANTIONE MADERA Attending Unavailable Kelechi Galvan DO Primary Care Provider Kelechi Galvan DO Attending Provider Sindhu RIM TURNING MACHINE OPERATOR-CJeny Attending Provider Kelechi Galvan Primary Care Unavailable Jeny Manley Attending Unavailable Jeny Manley Admitting Unavailable Allergies Allergy Classification Reported Allergen(s) Allergy Type Date of Onset Reaction(s) Facility (13 sources) Penicillin G Drug Allergy pt doesn't remember [employer] Other (2 sources) Penicillins Drug allergy (disorder) 3 [facility] (20 sources) Doxycycline Drug Allergy 4 Unknown, Unknown Reaction [facility] (2 sources) Penicillin Drug Allergy Unknown [employer] Other (9 sources) Penicillin G Benzathine & Proc Drug allergy 7 Unknown [employer] Other (2 sources) patient allergy list reviewed by nurse or physicia Propensity to adverse reactions 4 Comment:Done [employer] Other (2 sources) Allergies Reconciled Propensity to adverse reactions Unknown [employer] Other (10 sources) Penicillin G Benzathine; Translations: [penicillin G benzathine] Allergy to substance 4 Unknown Reaction [facility] Comment on above: Onset Date: 12/22/19 07 (3 sources) Penicillins Propensity to adverse reactions 3 Unknown [facility] Work Phone: (1 source) Doxycycline Drug Allergy 5 [facility] Repository Medications Current Medications Medication Drug Class(es) Dates Sig (Normalized) Sig (Original) atenolol 50 mg oral tablet (20 sources) beta-Adrenergic Selin Start: 04-08-2024 take 1 tablet by mouth once daily Start: 04-19-2023 End: 04-08-2024 take 1 tablet by mouth once daily Atenolol 50 mg tablet Discontinued 50 MG PO Daily October 27, 2023 1:00am April 08, 2024 9:59am Atenolol Not-Anuj ing/PRN Atenolol Not-Anuj ing Atenolol Active 24 hr buPROPion hydrochlorid e 300 mg extended release oral tablet (20 sources) Aminoketone Start: 12-27-2024 take 1 tablet by leora th once daily in the morning Start: 08-06-2024 End: 01-30-2025 take 1 tablet by mouth once daily in the morning Start: 08-06-2024 take 1 tablet by leora [...] tablet (20 sources) Histamine-1 Receptor Antagonist Start: 03-05-2025 take 1 tablet by mouth once daily Start: 06-23-2024 End: 03-05-2025 take 1 tablet by mouth once daily Cetirizine 10 mg tablet Discontinued 0 .ROUTE .COMPLEX June 23, 2024 12:17pm March 05, 2025 5:20pm TAKE 1 TABLET BY MOUTH EVERY DAY [...] muscle spasms. 01/23/2023 08/07/2024 Discontinued (Therapy completed) escitalopram 10 mg oral tablet (20 sources) Serotonin Reuptake Inhibitor Start: 12-27-2024 take 1 tablet by mouth once daily Start: 07-15-2024 End: 12-27-2024 take 1 tablet [...] 27, 2023 1:00am March 27, 2024 9:59am lifitegrast 50 mg/ml ophthalmic solution (3 sources) [...] take 1 tablet by mouth once daily Start: 05-07-2023 End: 04-08-2024 take 1 tablet by mouth once daily Lisinopril 5 mg tablet Discontinued 5 MG PO Daily October 27, 2023 1:00am April 08, 2024 9:59am Lisinopril Not-T aking/PRN Lisinopril Not-T aking Lisinopril Activ e OneTouch Ultra - (8 sources) OneTouch Ultra - USE 1 STRIP TO CHECK HOME BLOOD SUGAR for 25 Active potassium chloride 10 meq extended release oral tablet (4 sources) Start: 03-05-2025 Start: 04-30-2023 take 1 tablet by leora th in the morning potassium chloride CR (Klor-Con) 10 MEQ ER tablet Take 10 mEq by mouth in the morning. 04/30/2023 Active predniSONE 20 mg oral tablet (10 sources) Start: 12-27-2024 Start: 05-26-2023 take 1 tablet by leora th every twelve hours predniSONE 20 MG 1 tablet Orally bid for 5 day(s) May, Not-Taking/PRN tiZANidine 4 mg oral tablet (20 sources) Central alpha-2 Adrenergic Agonist Start: 10-27-2024 take 2 tablets by mouth once daily at bedtime Start: 10-27-2023 End: 10-27-2024 take 1 tablet [...] Active traMADol hydrochloride 50 mg oral tablet (2 sources) Opioid Agonist Start: 12-27-2024 take 1 tablet by mouth three times daily as needed for pain Trulicity 4.5 MG/0.5ML solution pen-injector (3 sources) Start: 05-03-2023 inject 4.5 mg by subcutaneous injection every week Trulicity 4.5 MG/0.5ML solution pen-injector Inject 4.5 mg under the skin 1 (one) time per week. 05/03/2023 Active Completed/Discontinued Medications Medication Drug Class(es) Dates Sig (Normalized) Sig (Original) baclofen 10 mg oral tablet (15 sources) gamma-Aminobutyri c Acid-ergic Agonist Start: 10-27-2023 [...] week Not-Taking/PRN cefdinir 300 mg oral capsule (12 sources) Cephalosporin Antibacterial Start: 08-18-20 End: 08-28-20 [...] eye(s) three times daily as needed Maxitrol 3.5-65412-0.1 2 drops into affected eye Ophthalmic Three times a day for 7 days Sep, Not-Taking/PRN Start: 09-13-2020 take 2 drop(s) into the eye(s) three times daily Maxitrol 3.5-47693-3.1 2 drops into affected eye Ophthalmic Three times a day for 7 days Sep, Not-Taking Start: 09-13-2020 take 2 drop(s) into the eye(s) three times daily Maxitrol 3.5-06049-4.1 2 drops into affected eye Ophthalmic Three times a day for 7 days Sep, Active Dulaglutide (20 sources) GLP-1 Receptor Agonist Start: 10-27-2023 End: 10-27-2024 Dulaglutide (Trulicity) 4.5 mg/0.5 mL pen injector Discontinued 4.5 MG SUBCUT every week October 27, 2023 1:00am October 27, 2024 2:49pm Start: 10-18-2022 inject 4.5 mg by sub [...] propionate 0.05 mg/actuat metered dose nasal spray (9 sources) Corticosteroid Start: 08-18-2024 End: 12-27-2024 take [...] 2:45pm administer 2 spray into each nostril furosemide 20 mg oral tablet (20 sources) Loop Diuretic Start: 04-05-2023 End: 11-18-2024 take 1 tablet by mouth once daily Furosemide 20 mg tablet Discontinued 20 MG PO Daily October 27, 2023 1:00am November 18, 2024 10:29pm Furosemide Activ e hydrOXYzine hydrochloride 50 mg oral tablet (12 sources) Antihistamine Start: 06-27-2024 End: 10-27-2024 take 1 tablet by mouth once daily at bedtime as needed for anxiety Hydroxyzine Hcl 50 mg tablet Discontinued 50 MG PO Daily at bedtime as needed for anxiety 7 7 June 27, 2024 12:42pm October 27, 2024 2:49pm [...] 30 mg levoFLOXacin 750 mg oral tablet (3 sources) Quinolone Antimicrobial Start: 08-28-2024 End: 10-27-2024 [...] Depo-Medrol 80 mg Feb, 80 mg Nirmatrelvir-Ritonavir (1 source) Start: 10-27-2023 End: 12-20-2023 take 2 tablets [...] for 5 days orally per package directions; Nirmatrelvir-Ritonavir (Paxlovid) 300 mg (150 mg x [...] potassium 99 mg extended release oral tablet (16 sources) Start: 10-27-2023 End: 03-05-2025 take 1 mg by mouth once daily Potassium 99 mg tablet Discontinued MG PO Daily October 27, 2023 1:00am March 05, 2025 5:16pm Start: 10-27-2023 take 1 mg by mouth once daily Potassium Active MG PO Daily October 27, 2023 1:00am take 1 tablet by leora once daily Potassium 99 MG 1 tablet Orally Once a day Active Potassium Active Toradol 30 mg/ml (8 sources) Start: [...] to other specified organisms] Episodic Anxiety disorders (6 sources) Panic attack; Translations: [Panic disorder [episodic paroxysmal anxiety]] 06-21-2024 Chronic Cardiac dysrhythmias (8 sources) Palpitations; Translations: [Palpitations] Onset: 7 04-16-2024 [...] menstrual cycle] Onset: 7 Chronic Mood disorders (20 sources) Moderate major depression, single episode; Translations: [Major depressive disorder, single episode, moderate] Chronic Mycoses (2 sources) Candidiasis; Translations: [Candidiasis, unspecified] Episodic Nonmalignant breast conditions (17 sources) Large breast; Translations: [Macromastia] Onset: 6 Episodic Other aftercare (2 sources) High risk drug monitoring status; Translations: [terminologist (current) use of opiate analgesic] Episodic Other [...] Onset: 2 Chronic Other nervous system disorders (4 sources) Carpal tunnel syndrome of right wrist; [...] Chronic Other nutritional; endocrine; and metabolic disorders (11 sources) Obesity; Translations: [Obesity, unspecified] 01-15-2024 Chronic [...] conditions (not mental disorders or infectious disease) (8 sources) Encounter for screening mammogram for malignant [...] Translations: [Pain, unspecified] Episodic Residual codes; unclassified (4 sources) Insomnia; Translations: [Insomnia, unspecified] 06-21-2024 Episodic [...] Spondylosis; intervertebral disc disorders; other back problems (10 sources) Pain in thoracic spine; Translations: [Low back pain] Onset: 5 12-27-2024 Episodic Sprains and strains (18 sources) Sprain of ankle; Translations: [Ankle sprain] Onset: 9 Episodic Thyroid disorders (2 sources) Subclinical hypothyroidism; Translations: [Other specified hypothyroidism] 12-12-2024 [...] Test Name Value Interpretation Reference Range Facility MR lumbar spine wo conon MR lumbar spine wo con [facility] [address] MRI Report Signed Patient: Jing Gray MR#: [id number] 1 : 1975 Acct:[id number] Age/Sex: 49 / F ADM Date: 03/12/25 Loc: [facility] Room: Type: [facility] Attending Dr: Jeny FELIZ Copies to: TRINI Rhodes Ordering Provider: TRINI Rhodes Date of Service: 03/12/25 MR/MR lumbar spine wo con: LUMBAR RADICULOPATHY,LUMBAR DISCOGENIC CHANGES MRI lumbar spine performed without contrast INDICATION: Lumbar radiculopathy COMPARISON: None FINDINGS: Examination was performed on an open magnet system with less than optimal pdifhy-ot-ywwwe ratio which does degrade evaluation. Lumbar vertebral heights, alignment and bone marrow signal is unremarkable. Mild intervertebral space narrowing L5-S1 with associated loss of intervertebral disc space signal. There is minimal loss of signal L3-4 without loss of space height. Conus medullaris terminates normally mid L2. Paraspinal soft tissues are unremarkable. T12-L3: Mild facet arthropathy. No significant disc disease, central canal or neural from narrowing identified. L3-4: Disc desiccation. Questionable left foraminal zone protrusion causing minimal left foraminal narrowing. Otherwise, mild to moderate facet arthropathy. Trace left facet joint effusion. L4-5: Moderate facet arthropathy and ligamentum flavum hypertrophy. Disc space height signal is grossly preserved without definite focal protrusion. There is mild neural foraminal narrowing and mild central canal stenosis due to the posterior element hypertrophic change. L5-S1: Circumferential disc bulge with moderate facet arthropathy. Questionable subarticular and foraminal zone encroachment. Mild right-sided moderate left-sided neural from narrowing. Correlate with possible left L5-S1 radiculopathy. MR/MR lumbar spine wo con IMPRESSION: Multilevel predominantly posterior element degenerative changes L3-S1 greatest L5-S1. Subarticular and foraminal encroachment greatest left L5-S1. Correlate with possible left L5-S1 radiculopathy. Question small left foraminal zone bulge contacting the exiting left L3 nerve root. Impression dictated by: Edgardo Mccabe M.D. 03/12/2025 10:38 AM Dictation Location: [place] [address] Transcribed By: [facility] 03/12/25 1038 Dictated By: Edgardo Mccabe MD 03/12/25 1030 Signed By: 03/12/25 1038 Normal [facility] Magnetic resonance imaging r eportOrdered By: Edgardo Mccabe on 03-12-2025 Study report [facility] [address] MRI Report Signed Patient: Jing Gray MR#: [id number] : 1975 Acct:[id number] Age/Sex: 49 / F ADM Date: 5 Loc: [facility] Room: Type: [facility] Attending Dr: Jeny FELIZ Copies to: TRINI Rhodes~ Ordering Provider: TRINI Rhodes Date of Service: 03/12/25 MR/MR lumbar spine wo con: LUMBAR RADICULOPATHY,LUMBAR DISCOGENIC CHANGES MRI lumbar spine performed without contrast INDICATION: Lumbar radiculopathy COMPARISON: None FINDINGS: Examination was performed on an open magnet system with less than optimal frnbyg-ko-vtbsb ratio which does degrade evaluation. Lumbar vertebral heights, alignment and bone marrow signal is unremarkable. Mild intervertebral space narrowing L5-S1 with associated loss of intervertebraldisc space signal. There is minimal loss of signal L3-4 without loss of space height. Conus medullaris terminates normally mid L2. Paraspinal soft tissues are unremarkable. T12-L3: Mild facet arthropathy. No significant disc disease, central canal or neural from narrowing identified. L3-4: Disc desiccation. Questionable left foraminal zone protrusion causing minimal left foraminal narrowing. Otherwise, mild to moderate facet arthropathy. Trace left facet joint effusion. L4-5: Moderate facet arthropathy and ligamentum flavum hypertrophy. Disc space height signal is grossly preserved without definite focal protrusion. There is mild neural foraminal narrowing and mild central canal stenosis due to the posterior element hypertrophic change. L5-S1: Circumferential disc bulge with moderate facet arthropathy. Questionablesubarticular and foraminal zone encroachment. Mild right-sided moderate left-sided neural from narrowing. Correlate with possible left L5-S1 radiculopathy. MR/MR lumbar spine wo con IMPRESSION: Multilevel predominantly posterior element degenerative changes L3-S1 greatest L5-S1. Subarticular and foraminal encroachment greatest left L5-S1. Correlate with possible left L5-S1 radiculopathy. Question small left foraminal zone bulge contacting the exiting left L3 nerve root. Impression dictated by: Edgardo Mccabe M.D. 03/12/2025 10:38 AM Dictation Location: [place] [address] Transcribed By: [facility] 03/12/25 1038 Dictated By: Edgardo Mccabe MD 03/12/25 1030 Signed By: 03/12/25 1038 [facility] Work Phone: Laboratory - Chemistry and C hemistry - challengeon 12-17-2024 Free T4 [Mass/Vol] 0.95 ng/dL 0.76-1.46 [facility] TSH Qn 4.726 m[IU]/L High 0.358-3.740 [facility] Basophils Auto (Bld) [#/Vol] on 10-09-2024 Basophils (Bld) [#/Vol] Automated basophil count 0.0-0.1 [facility] Basophils/100 WBC Auto (Bld) on 10-09-2024 Basophils/100 WBC (Bld) Automated basophil % 0.2-2.0 [facility] Cholesterol in LDL Calc [Mas s/Vol]on 10-09-2024 Cholesterol in LDL [Mass/Vol] Cholesterol in LDL [Mass/volume] in Serum or Plasma by calculation [facility] Comment on above: <100 mg/dl [id number] 0-129 mg/dl NEAR OR ABOVE [id number] mg/dl BORDERLINE [id number] mg/dl HIGH>190 mg/dl VERY HIGH Cholesterol in VLDL Calc [Ma ss/Vol]on 10-09-2024 Cholesterol in VLDL [Mass/Vol] Cholesterol in VLDL [Mass/volume] in Serum or Plasma by calculation [facility] Eosinophils/100 WBC Auto (Bl d)on 10-09-2024 Eosinophils/100 WBC (Bld) Automated eosinophil % 0.9-7.0 [facility] Erythrocyte distribution wid th Auto (RBC) [Ratio]on 10-09-2024 Erythrocyte distribution width (RBC) [Ratio] Erythrocyte distribution width [Ratio] by Automated count 11.0-15.0 [facility] Estimated glomerular filtrat ion rate (GFR) non- Americanon 10-09-2024 GFR/1.73 sq M.predicted among non-blacks MDRD (S/P/Bld) [Vol rate/Area] Estimated glomerular filtration rate (GFR) non- >=60 mL/min/1.73 m 2 [facility] Globulin Calc (S) [Mass/Vol] on 10-09-2024 Globulin (S) [Mass/Vol] Serum globulin measurement by calculation (mass/volume) [facility] Glucose mean value [Mass/vol ume] in Blood Estimated from glycated hemoglobinon 10-09-2024 Average glucose Estimated from glycated hemoglobin (Bld) [Mass/Vol] Glucose mean value [Mass/volume] in Blood Estimated from glycated hemoglobin [facility] Hematocrit Auto (Bld) [Volum e fraction]on 10-09-2024 Hematocrit (Bld) [Volume fraction] Hematocrit [Volume Fraction] of Blood by Automated count 36.0-48.0 [facility] Hemoglobin A1c percentageon 10-09-2024 HbA1c (Bld) [Mass fraction] Hemoglobin A1c percentage High 4.5-6.2 [facility] Comment on above: ADA RECOMMENDED LIMI T 4.0 - 6.0ADA THERAPEUTIC TARGET < 7.0ACTION SUGGESTED> 7.0 Hemoglobin [Mass/volume] in Bloodon 10-09-2024 Hemoglobin (Bld) [Mass/Vol] Hemoglobin [Mass/volume] in Blood 12.0-16.0 [facility] Laboratory - Chemistry and C hemistry - challengeon 10-09-2024 Albumin [Mass/Vol] 3.9 g/dL 3.4-5.0 [facility] ALP [Catalytic activity/Vol] 98 U/L 46-116 [facility] ALT [Catalytic activity/Vol] 22 U/L 14-59 [facility] AST [Catalytic activity/Vol] 17 U/L 15-37 [facility] Bilirubin [Mass/Vol] 0.9 mg/dL 0.2-1.0 [facility] Calcium [Mass/Vol] 9.6 mg/dL 8.5-10.1 [facility] Chloride [Moles/Vol] 103 mmol/L 98-107 [facility] Cholesterol [Mass/Vol] 185 mg/dL <=200 [facility] Cholesterol in HDL [Mass/Vol] 80 mg/dL High 40-60 [facility] Comment on above: > or =60 mg/dl - LOW CARDIOVASCULAR RISK<40 mg/dl - HIGH CARDIOVASCULAR RISK CO2 [Moles/Vol] 27.6 mmol/L 21.0-32.0 [facility] Creatinine [Mass/Vol] 0.84 mg/dL 0.55-1.02 [facility] GFR/1.73 sq M.predicted MDRD (S/P/Bld) [Vol rate/Area] mL/min/{1.73_m2} >=60 mL/min/1.73 m 2 [facility] Glucose [Mass/Vol] 156 mg/dL High 74-106 [facility] Potassium [Moles/Vol] 4.3 mmol/L 3.5-5.1 [facility] Protein [Mass/Vol] 7.7 g/dL 6.4-8.2 [facility] Sodium [Moles/Vol] 140 mmol/L 136-145 [facility] Triglyceride [Mass/Vol] 68 mg/dL <=150 [facility] TSH Qn 4.409 m[IU]/L High 0.358-3.740 [facility] Urea nitrogen [Mass/Vol] 11.0 mg/dL 7.0-18.0 [facility] Urea nitrogen/Creatinin e [Mass ratio] 13.1 mg/mg [facility] Laboratory - Hematology and Cell countson 10-09-2024 Immature granulocytes/100 WBC (Bld) 0.5 % 0.0-0.5 [facility] Leukocytes [#/volume] correc kendra for nucleated erythrocytes in Blood by Automated counon 10-09-2024 WBC corrected for nucl RBC Auto (Bld) [#/Vol] Leukocytes [#/volume] corrected for nucleated erythrocytes in Blood by Automated coun 4.0-11.0 [facility] Lymphocytes Auto (Bld) [#/Vo l]on 10-09-2024 Lymphocytes (Bld) [#/Vol] Lymphocytes [#/volume] in Blood by Automated count 1.2-3.8 [facility] Lymphocytes/100 WBC Auto (Bl d)on 10-09-2024 Lymphocytes/100 WBC (Bld) Lymphocytes/100 leukocytes in Blood by Automated count 20.5-60.0 [facility] MCH Auto (RBC) [Entitic mass ]on 10-09-2024 MCH (RBC) [Entitic mass] MCH [Entitic mass] by Automated count 26.7-34.0 [facility] MCHC Auto (RBC) [Mass/Vol]on 10-09-2024 MCHC (RBC) [Mass/Vol] MCHC [Mass/volume] by Automated count 29.9-35.2 [facility] MCV Auto (RBC) [Entitic vol] on 10-09-2024 MCV (RBC) [Entitic vol] MCV [Entitic volume] by Automated count 81.0-99.0 [facility] Microalbumin [Mass/volume] i n Urineon 10-09-2024 Albumin DL <= 20 mg/L (U) [Mass/Vol] Microalbumin [Mass/volume] in Urine <=30.0 [facility] Monocytes Auto (Bld) [#/Vol] on 10-09-2024 Monocytes (Bld) [#/Vol] Automated blood monocyte count High 0.3-0.8 [facility] Monocytes/100 WBC Auto (Bld) on 10-09-2024 Monocytes/100 WBC (Bld) Automated monocyte % 1.7-12.0 [facility] Neutrophils Auto (Bld) [#/Vo l]on 10-09-2024 Neutrophils (Bld) [#/Vol] Neutrophils [#/volume] in Blood by Automated count High 1.4-6.5 [facility] Neutrophils/100 WBC Auto (Bl d)on 10-09-2024 Neutrophils/100 WBC (Bld) Automated neutrophil % 43.0-75.0 [facility] No Panel Informationon 10-09 Eosinophils # (Auto) 0.3 10 3/uL 0.0-0.7 [facility] Immature Granulocyte # (Auto) 0.05 10 3/uL High 0.00-0.03 [facility] Prolactin 37.7 ng/mL Abnormal 4.8-33.4 [facility] Comment on above: Performed at: [place] [id number] Director: Joshua Joradn PhD, Phone: [phone] Urine Random Creatinine 160.10 mg/dL 20.00-300.0 0 [facility] Platelet mean volume Auto (B ld) [Entitic vol]on 10-09-2024 Platelet mean volume (Bld) [Entitic vol] Platelet mean volume [Entitic volume] in Blood by Automated count Low 9.5-13.5 [facility] Platelets Auto (Bld) [#/Vol] on 10-09-2024 Platelets (Bld) [#/Vol] Platelets [#/volume] in Blood by Automated count 150-450 [facility] RBC Auto (Bld) [#/Vol]on RBC (Bld) [#/Vol] Erythrocytes [#/volu me] in Blood by Automated count 4.20-5.40 [facility] Serum or plasma albumin/glob ulin mass ratioon 10-09-2024 Albumin/Globulin [Mass ratio] Serum or plasma albumin/globulin mass ratio [facility] Serum or plasma anion gap de terminationon 10-09-2024 Anion gap [Moles/Vol] Serum or plasma anion gap determination [facility] Serum or plasma total choles terol/high density lipoprotein (HDL) cholesterol mass erika 10-09-2024 Cholesterol.total/ Cholesterol in HDL [Mass ratio] Serum or plasma total cholesterol/high density lipoprotein (HDL) cholesterol mass rat [facility] Comment on above: 3.3 - 4.4 LOW RISK4. 4 - 7.1 AVERAGE RISK7.1 - 11.0 MODERATE RISK>11.0 HIGH RISK Urine microalbumin/creatinin e mass ratioon 10-09-2024 Albumin/Creatinine DL <= 20 mg/L (U) [Mass ratio] Urine microalbumin/creatinine mass ratio 0.0-29.9 [facility] Comment on above: NO MICROALBUMINURIA 0-29 MG/GCLINICAL MICROALBUMINURIA 30-300 MG/GMACROALBUMINURIA >300 MG/G XR hand RT min 3V*on 023 XR hand RT min 3V* [facility] [employer] Other XR hand RT min 3V* [facility] [employer] Other XR hand RT min 3V* [address] [place] [address] [employer] Other XR hand RT min 3V* [place] [address] [employer] Other XR hand RT min 3V* XRay Report Resident Research [facility] [employer] Other XR hand RT min 3V* Signed [employer] Other XR hand RT min 3V* Patient: Jing Gray MR#: [id number] [employer] Other XR hand RT min 3V* 1 [employer] Other XR hand RT min 3V* : 1975 Acct:[id number] [employer] Other XR hand RT min 3V* Age/Sex: 47 / F ADM Date: 01/11/23 [employer] Other XR hand RT min 3V* Loc: [facility] Room: Ty pe: REG CLI [employer] Other XR hand RT min 3V* Attending Dr: Angélica GRIFFIN [employer] Other XR hand RT min 3V* Copies to: Angélica Swann NP [employer] Other XR hand RT min 3V* Ordering Provider: TRINI [place] [employer] Other XR hand RT min 3V* Date of Service: 01/11/23 [employer] Other XR hand RT min 3V* [id number]) XR/XR hand RT min 3V*: RIGHT HAND INJURY [employer] Other XR hand RT min 3V* 3 views right hand p ketty film [employer] Other XR hand RT min 3V* COMPARISON: None [employer] Other XR hand RT min 3V* HISTORY: Fourth and fifth metacarpal injury [employer] Other XR hand RT min 3V* ACUTE FINDINGS: None [employer] Other XR hand RT min 3V* DEGENERATIVE CHANGE: Unremarkable [employer] Other XR hand RT min 3V* SOFT TISSUE FINDINGS : Unremarkable [employer] Other XR hand RT min 3V* JOINT EFFUSION: None [employer] Other XR hand RT min 3V* POSTOP CHANGES: None [employer] Other XR hand RT min 3V* BONY MINERALIZATION: Adequate [employer] Other XR hand RT min 3V* X R/XR hand RT min 3V* [employer] Other XR hand RT min 3V* IMPRESSION: No acute findings [employer] Other XR hand RT min 3V* Impression dictated by: Blake Marino M.D.01/11/2023 6:08 PM [employer] Other XR hand RT min 3V* Dictation Location: [facility]--[address] [place] [address] [employer] Other XR hand RT min 3V* Transcribed By: PWS 01/11/23 180 [employer] Other XR hand RT min 3V* Dictated By: Masoud Marino DO 01/11/231806 [employer] Other XR hand RT min 3V* Signed By: [employer] Other XR hand RT min 3V* 01/11/23 180 [facility] [employer] Other PROLACTINon 01-06-2023 Prolactin 34.5 ng/mL Critically high 4.8-23.3 [facility] Comment on above: Performed By: #### P ROLAC #### [facility] [address] [address] [address] Digna Thomas CBC AUTO DIFFon 01-05-2023 BASO # 0.1 103/ul Normal 0.0-0.1 [facility] Comment on above: Performed By: #### C BC ####[facility] [address] [address]DrNile Thomas Basophils/100 WBC (Bld) 0.8 % Normal 0.2-2.0 [facility] Comment on above: Performed By: #### C BC ####[facility] [address] [address]DrNile Thomas EO # 0.5 103/ul Normal 0.0-0.7 [facility] Comment on above: Performed By: #### C BC ####[facility] [address] [address]Dr. Digna Thomas Eosinophils/100 WBC (Bld) 5.0 % Normal 0.9-7.0 [facility] Comment on above: Performed By: #### C BC ####[facility] Nrsgsgl[address] [place], [place] [address]Dr. Digna Thomas Erythrocyte distribution width (RBC) [Ratio] 13.0 % Normal 11.0-15.0 [facility] Comment on above: Performed By: #### C BC ####[facility] [address]az[address] [place], [place] [address]Dr. Digna Thomas Hematocrit (Bld) [Volume fraction] 44.6 % Normal 36.0-48.0 [facility] Comment on above: Performed By: #### C BC ####[facility] Lacoxectcf[address] [place], [place] [address]Dr. Digna Thomas Hemoglobin (Bld) [Mass/Vol] 14.4 g/dL Normal 12.0-16.0 [facility] Comment on above: Performed By: #### C BC ####[facility] [address]esk[address] [place], [place] [address]Dr. Digna Thomas IG # 0.05 10e3/ul Critically high 0.00-0.03 [facility] Comment on above: Performed By: #### C BC ####[facility] Rsxebs[address] [place], [place] [address]Dr. Digna Thomas IG % 0.5 % Normal 0.0-0.5 [facility] Comment on above: Performed By: #### C BC ####[facility] Txf[address]sp[address] [place], [place] [address]Dr. Digna Thomas LYMPH # 2.3 103/ul Normal 1.2-3.8 [facility] Comment on above: Performed By: #### C BC ####[facility] Ddcjyy[address] [place], [place] [address]Dr. Digna Thomas Lymphocytes/100 WBC (Bld) 23.0 % Normal 20.5-60.0 [facility] Comment on above: Performed By: #### C BC ####[facility] [address] [id number]. Digna Thomas MANUAL DIFF REQ NO Normal [facility] [place] [facility] Comment on above: Performed By: #### C BC ####[facility] [address] [id number]. Digna William MCH (RBC) [Entitic mass] 28.3 pg Normal 26.7-34.0 [facility] Comment on above: Performed By: #### C BC ####[facility] [address] [address]Dr. Digna William MCHC (RBC) [Mass/Vol] 32.3 g/dL Normal 29.9-35.2 [facility] Comment on above: Performed By: #### C BC ####[facility] Lyooun[address]myx[address] [place], [place] [address]Dr. Anajs Thomas MCV (RBC) [Entitic vol] 87.8 fL Normal 81.0-99.0 [facility] Comment on above: Performed By: #### C BC ####[facility] [address] [place], [place] [address]Dr. Digna William MONO # 0.8 103/ul Normal 0.3-0.8 [facility] Comment on above: Performed By: #### C BC ####[facility] [address] [place], [place] [address]Dr. Anajs Thomas Monocytes/100 WBC (Bld) 7.9 % Normal 1.7-12.0 [facility] Comment on above: Performed By: #### C BC ####[facility] [address]ewweoab[address] [place], [place] [address]Dr. Anajs Thomas NEUT # 6.3 103/ul Normal 1.4-6.5 [facility] Comment on above: Performed By: #### C BC ####[facility] [address] [place], [place] [address]Dr. Digna Thomas Neutrophils/100 WBC (Bld) 62.8 % Normal 43.0-75.0 [facility] Comment on above: Performed By: #### C BC ####[facility] [address] [id number]. Digna Thomas Platelet mean volume (Bld) [Entitic vol] 9.9 fL Normal 9.5-13.5 [facility] Comment on above: Performed By: #### C BC ####[facility] [address] [address]Dr. Digna Thomas PLT 223 103/ul Normal 150-450 [facility] Comment on above: Performed By: #### C BC ####[facility] [address] [id number]. Digna Thomas RBC 5.08 106/ul Normal 4.20-5.40 [facility] Comment on above: Performed By: #### C BC ####[facility] [address] [address]Dr. Digna Thomas WBC 10.0 103/ul Normal 4.0-11.0 [facility] Comment on above: Performed By: #### C BC ####[facility] [address] [address]Dr. Digna Thomas LIPID PROFILEon 01-05-2023 CHOL-HDL RATIO NORM SEE BELOW Normal [facility] Comment on above: Result Comment: 3.3 - 4.4 LOW RISK 4.4 - 7.1 AVERAGE RISK 7.1 - 11.0 MODERATE RISK >11.0 HIGH RISK Performed By: #### B MP, TSH, LIPID #### [facility] [address] [place] [address] Dr. Digna Thomas Cholesterol [Mass/Vol] 179 mg/dL Normal <=200 [facility] Comment on above: Performed By: #### B MP, TSH, LIPID #### [facility] [address] [address] [address] Digna Thomas Cholesterol in HDL [Mass/Vol] 55 mg/dL Normal 40-60 [facility] Comment on above: Performed By: #### B MP, TSH, LIPID #### [facility] [address] [address] [address] Digna Thomas Cholesterol in LDL [Mass/Vol] 103.8 mg/dL Normal [facility] Comment on above: Performed By: #### B MP, TSH, LIPID #### [facility] [address] [address] [address] Digna Thomas Cholesterol.total/ Cholesterol in HDL [Mass ratio] 3.3 {ratio} Normal [facility] Comment on above: Performed By: #### B MP, TSH, LIPID #### [facility] [address] [address] [address] Digna Thomas HDL NORMAL > or = 60 mg/dl - LO W CARDIOVASCULAR RISK <40 mg/dl - HIGH CARDIOVASCULAR RISK Normal [facility] Comment on above: Performed By: #### B MP, TSH, LIPID #### [facility] [address] [place] [address] Dr. Digna Thomas LDL CALC NORMAL SEE BELOW Normal [facility] Comment on above: Result Comment: <100 mg/dl OPTIMAL 100 - 129 mg/dl NEAR OR ABOVE OPTIMAL 130 - 159 mg/dl BORDERLINE HIGH 160 - 189 mg/dl HIGH >190 mg/dl VERY HIGH Performed By: #### B MP, TSH, LIPID #### [facility] [address] [address] [address] Digna Thomas Triglyceride [Mass/Vol] 101 mg/dL Normal <=150 [facility] Comment on above: Performed By: #### B MP, TSH, LIPID #### [facility] [address] [address] [address] Digna Thomas VLDL CALC 20.2 mg/dL Normal [facility] Comment on above: Performed By: #### B MP, TSH, LIPID #### [facility] [address] [address] [address] Digna Thomas PROF CHEM 8 (BAS METB)on Anion gap [Moles/Vol] 13.3 mmol/L Normal [facility] Comment on above: Performed By: #### B MP, TSH, LIPID #### [facility] [address] [address] [address] Digna Thomas Calcium [Mass/Vol] 9.4 mg/dL Normal 8.5-10.1 [facility] Comment on above: Performed By: #### B MP, TSH, LIPID #### [facility] [address] [address] [address] Digna Thomas Chloride [Moles/Vol] 104 mmol/L Normal 98-107 [facility] Comment on above: Performed By: #### B MP, TSH, LIPID #### [facility] [address] [place] [address] Dr. Digna Thomas CO2 [Moles/Vol] 27.1 mmol/L Normal 21.0-32.0 [facility] Comment on above: Performed By: #### B MP, TSH, LIPID #### [facility] [address] [place] [address] Dr. Digna Thomas Creatinine [Mass/Vol] 0.71 mg/dL Normal 0.55-1.02 [facility] Comment on above: Performed By: #### B MP, TSH, LIPID #### [facility] [address] [place] [address] Dr. Digna Thomas EGFR-AF BAHAMIAN >60 Normal >=60 [facility] Comment on above: Performed By: #### B MP, TSH, LIPID #### [facility] [address] [place] [address] Dr. Digna Thomas EGFR-NON AF BAHAMIAN >60 Normal >=60 [facility] Comment on above: Performed By: #### B MP, TSH, LIPID #### [facility] [address] [place] [address] Dr. Digna Thomas Glucose [Mass/Vol] 163 mg/dL Critically high 74-106 [facility] Comment on above: Performed By: #### B MP, TSH, LIPID #### [facility] [address] [place] [address] Dr. Digna Thomas Potassium [Moles/Vol] 4.4 mmol/L Normal 3.5-5.1 [facility] Comment on above: Performed By: #### B MP, TSH, LIPID #### [facility] [address] [place] [address] Dr. Digna Thomas Sodium [Moles/Vol] 140 mmol/L Normal 136-145 [facility] Comment on above: Performed By: #### B MP, TSH, LIPID #### [facility] [address] [address] [address] Digna Thomas Urea nitrogen [Mass/Vol] 15.0 mg/dL Normal 7.0-18.0 [facility] Comment on above: Performed By: #### B MP, TSH, LIPID #### [facility] [id number] Dinga Thomas Urea nitrogen/Creatinin e [Mass ratio] 21.1 mg/mg Normal [facility] Comment on above: Performed By: #### B MP, TSH, LIPID #### [facility] [address] [address] [address] Digna Thomas TSHon 01-05-2023 TSH 3.955 uIU/mL Critically high 0.358-3.740 [facility] Comment on above: Performed By: #### B MP, TSH, LIPID #### [facility] [address] [address] [address] Digna Thomas XR CSPINE MIN 4 [...] FELIPE TRINH Date: 2022-11-04 08:02 Normal [facility] GLYCOHEMOGLOBIN A1Con 2022 ADA RECOMMENDATION SEE BELOW Normal [facility] Comment on above: Result Comment: ADA RECOMMENDED LIMIT 4.0 - 6.0 ADA THERAPEUTIC TARGET < 7.0 ACTION SUGGESTED > 7.0 Performed By: #### A 1C ####[facility] [address] [place], [place] [address]XvDr. Digna Thomas Glucose [Mass/Vol] 166 mg/dL Normal [facility] Comment on above: Performed By: #### A 1C ####[facility] [address] [phone]. Digna Thomas HbA1c (Bld) [Mass fraction] 7.4 % Critically high 4.5-6.2 [facility] Comment on above: Performed By: #### A 1C ####[facility] [address] [phone]. Digna Thomas PROLACTINon 07-12-2022 Prolactin 48.0 ng/mL Critically high 4.8-23.3 [facility] Comment on above: Performed By: #### P ROLAC #### [facility] [address] [address] [address] Digna Thomas CBC AUTO DIFFon 07-11-2022 BASO # 0.1 103/ul Normal 0.0-0.1 [facility] Comment on above: Performed By: #### C BC ####[facility] [address] [address]Dr. Digna Thomas Basophils/100 WBC (Bld) 0.8 % Normal 0.2-2.0 [facility] Comment on above: Performed By: #### C BC ####[facility] [address] [place], [place] [address]Dr. Digna Thomas EO # 0.7 103/ul Normal 0.0-0.7 [facility] Comment on above: Performed By: #### C BC ####[facility] [address] [address]Dr. Digna Thomas Eosinophils/100 WBC (Bld) 5.8 % Normal 0.9-7.0 [facility] Comment on above: Performed By: #### C BC ####[facility] [address] [address]Dr. Digna Thomas Erythrocyte distribution width (RBC) [Ratio] 12.7 % Normal 11.0-15.0 [facility] Comment on above: Performed By: #### C BC ####[facility] [address] [address]Dr. Digna Thomas Hematocrit (Bld) [Volume fraction] 45.4 % Normal 36.0-48.0 [facility] Comment on above: Performed By: #### C BC ####[facility] [address] [address]DrNile Perezjs William Hemoglobin (Bld) [Mass/Vol] 15.3 g/dL Normal 12.0-16.0 [facility] Comment on above: Performed By: #### C BC ####[facility] [address] [address]DrNile Thomas IG # 0.04 10e3/ul Critically high 0.00-0.03 [facility] Comment on above: Performed By: #### C BC ####[facility] [address] [place], [place] [address]DrNile Thomas IG % 0.3 % Normal 0.0-0.5 [facility] Comment on above: Performed By: #### C BC ####[facility] [address] [place], [place] [address]DrNile Thomas LYMPH # 3.3 103/ul Normal 1.2-3.8 [facility] Comment on above: Performed By: #### C BC ####[facility] [address]rjmqidreg[address] [place], [place] [address]DrNile Thomas Lymphocytes/100 WBC (Bld) 28.1 % Normal 20.5-60.0 [facility] Comment on above: Performed By: #### C BC ####[facility] [address] [place], [place] [address]DrNile Thomas MANUAL DIFF REQ NO Normal [facility] [place] [facility] Comment on above: Performed By: #### C BC ####[facility] [address] [address]DrNile Thomas MCH (RBC) [Entitic mass] 29.2 pg Normal 26.7-34.0 [facility] Comment on above: Performed By: #### C BC ####[facility] [address] [address]DrNile Thomas MCHC (RBC) [Mass/Vol] 33.7 g/dL Normal 29.9-35.2 [facility] Comment on above: Performed By: #### C BC ####[facility] [address] [address]DrNile Thomas MCV (RBC) [Entitic vol] 86.6 fL Normal 81.0-99.0 [facility] Comment on above: Performed By: #### C BC ####[facility] [address] [address]DrNile Thomas MONO # 0.8 103/ul Normal 0.3-0.8 [facility] Comment on above: Performed By: #### C BC ####[facility] [address]ctsuz[address] [address]DrNile Thomas Monocytes/100 WBC (Bld) 6.4 % Normal 1.7-12.0 [facility] Comment on above: Performed By: #### C BC ####[facility] [address] [place], [place] [address]DrNile Thomas NEUT # 6.9 103/ul Critically high 1.4-6.5 [facility] Comment on above: Performed By: #### C BC ####[facility] [address]vc[address] [place], [place] [address]DrNile Thomas Neutrophils/100 WBC (Bld) 58.6 % Normal 43.0-75.0 [facility] Comment on above: Performed By: #### C BC ####[facility] [address] [place], [place] [address]DrNile Thomas Platelet mean volume (Bld) [Entitic vol] 10.0 fL Normal 9.5-13.5 [facility] Comment on above: Performed By: #### C BC ####[facility] [address] [place], [place] [address]DrNile Thomas PLT 242 103/ul Normal 150-450 [facility] Comment on above: Performed By: #### C BC ####[facility] [address] [place], [place] [address]DrNile Thomas RBC 5.24 106/ul Normal 4.20-5.40 [facility] Comment on above: Performed By: #### C BC ####[facility] [address] [place] [address]Dr. Digna Thomas WBC 11.8 103/ul Critically high 4.0-11.0 [facility] Comment on above: Performed By: #### C BC ####[facility] [address] [place] [address]Dr. Digna Thomas GLYCOHEMOGLOBIN A1Con 2021 ADA RECOMMENDATION SEE BELOW Normal [facility] Comment on above: Result Comment: ADA RECOMMENDED LIMIT 4.0 - 6.0 ADA THERAPEUTIC TARGET < 7.0 ACTION SUGGESTED > 7.0 Performed By: #### A 1C ####[facility] [address] [place], [place] [address]Dr. Digna Thomas Glucose [Mass/Vol] 183 mg/dL Normal [facility] Comment on above: Performed By: #### A 1C ####[facility] [address]un[address] [place], [place] [address]Dr. Digna Thomas HbA1c (Bld) [Mass fraction] 8.0 % Critically high 4.5-6.2 [facility] Comment on above: Performed By: #### A 1C ####[facility] [address] [place], [place] [address]Dr. Digna Thomas LIPID PROFILEon 07-11-2022 CHOL-HDL RATIO NORM SEE BELOW Normal [facility] Comment on above: Result Comment: 3.3 - 4.4 LOW RISK 4.4 - 7.1 AVERAGE RISK 7.1 - 11.0 MODERATE RISK >11.0 HIGH RISK Performed By: #### B MP, LIPID, TSH ####[facility] [address] [place] [address]Dr. Digna Thomas Cholesterol [Mass/Vol] 161 mg/dL Normal <=200 [facility] Comment on above: Performed By: #### B MP, LIPID, TSH ####[facility] [address]xc[address] [address]Dr. Digna Thomas Cholesterol in HDL [Mass/Vol] 51 mg/dL Normal 40-60 [facility] Comment on above: Performed By: #### B MP, LIPID, TSH ####[facility] [address] [address]Dr. Digna Thomas Cholesterol in LDL [Mass/Vol] 86.2 mg/dL Normal [facility] Comment on above: Performed By: #### B MP, LIPID, TSH ####[facility] [address] [address]Dr. Digna Thomas Cholesterol.total/ Cholesterol in HDL [Mass ratio] 3.2 {ratio} Normal [facility] Comment on above: Performed By: #### B MP, LIPID, TSH ####[facility] [address] [address]Dr. Digna Thomas HDL NORMAL > or = 60 mg/dl - LO W CARDIOVASCULAR RISK <40 mg/dl - HIGH CARDIOVASCULAR RISK Normal [facility] Comment on above: Performed By: #### B MP, LIPID, TSH ####[facility] [address] [address]Dr. Digna Thomas LDL CALC NORMAL SEE BELOW Normal [facility] Comment on above: Result Comment: <100 mg/dl OPTIMAL 100 - 129 mg/dl NEAR OR ABOVE OPTIMAL 130 - 159 mg/dl BORDERLINE HIGH 160 - 189 mg/dl HIGH >190 mg/dl VERY HIGH Performed By: #### B MP, LIPID, TSH ####[facility] [address] [address]Dr. Digna Thomas Triglyceride [Mass/Vol] 119 mg/dL Normal <=150 [facility] Comment on above: Performed By: #### B MP, LIPID, TSH ####[facility] [address]we[address] [place] [address]Dr. Digna Thomas VLDL CALC 23.8 mg/dL Normal [facility] Comment on above: Performed By: #### B MP, LIPID, TSH ####[facility] [address] [address]Dr. Digna Thomas MG MAMM SCREEN 3D JANE CADon 07-11-2022 MG MAMM SCREEN 3D JANE CAD Patient: JING GRAYNile Exam Date: 07/11/2022 : 1975 Gender:F Ordering : DR KELECHI GALVAN D.O. Admission #: [id number] Family : Order #: [id number] CLICK HERE TO VIEW EXAM RADIOLOGY REPORT [...] bladder cancer at age 51. LOCATION: [facility] BREAST COMPOSITION: Scattered areas fibroglandular density. [...] MD on 07/11/2022 at 10:14 Normal [facility] MICROALBUMIN, RAND URon 10-3 mALB 10.1 mg/L Normal <=30.0 [facility] Comment on above: Performed By: #### M ALBR #### [facility] [address] [place], [place] [address] Dr. Digna Thomas PROF CHEM 8 (BAS METB)on Anion gap [Moles/Vol] 10.6 mmol/L Normal [facility] Comment on above: Performed By: #### B MP, LIPID, TSH ####[facility] [address] [place], [place] [address]Dr. Digna Thomas Calcium [Mass/Vol] 9.3 mg/dL Normal 8.5-10.1 [facility] Comment on above: Performed By: #### B MP, LIPID, TSH ####[facility] [address] [address]Dr. Digna William Chloride [Moles/Vol] 99 mmol/L Normal 98-107 [facility] Comment on above: Performed By: #### B MP, LIPID, TSH ####[facility] [address] [place] [address]Dr. Digna William CO2 [Moles/Vol] 28.3 mmol/L Normal 21.0-32.0 [facility] Comment on above: Performed By: #### B MP, LIPID, TSH ####[facility] [address] [place], [place] [address]Dr. Digna Thomas Creatinine [Mass/Vol] 0.74 mg/dL Normal 0.55-1.02 [facility] Comment on above: Performed By: #### B MP, LIPID, TSH ####[facility] [address]kb[address] [place], [place] [address]Dr. Digna William EGFR-AF BAHAMIAN >60 Normal >=60 [facility] Comment on above: Performed By: #### B MP, LIPID, TSH ####[facility] [address]fsbxjl[address] [place], [place] [address]Dr. Digna William EGFR-NON AF BAHAMIAN >60 Normal >=60 [facility] Comment on above: Performed By: #### B MP, LIPID, TSH ####[facility] [address] [place] [address]Dr. Digna William Glucose [Mass/Vol] 190 mg/dL Critically high 74-106 [facility] Comment on above: Performed By: #### B MP, LIPID, TSH ####[facility] [address] [place] [address]Dr. Digna Thomas Potassium [Moles/Vol] 3.9 mmol/L Normal 3.5-5.1 [facility] Comment on above: Performed By: #### B MP, LIPID, TSH ####[facility] [address] [place], [place] [address]Dr. Digna Thomas Sodium [Moles/Vol] 134 mmol/L Critically low 136-145 [facility] Comment on above: Performed By: #### B MP, LIPID, TSH ####[facility] [address]qpaip47[address] [place], [place] [address]Yt. Digna Thomas Urea nitrogen [Mass/Vol] 13.0 mg/dL Normal 7.0-18.0 [facility] Comment on above: Performed By: #### B MP, LIPID, TSH ####[facility] [address] [place] [id number]. Digna Thomas Urea nitrogen/Creatinin e [Mass ratio] 17.6 mg/mg Normal [facility] Comment on above: Performed By: #### B MP, LIPID, TSH ####[facility] [address]if[address] [place] [address]Dr. Digna Thomas TSHon 07-11-2022 TSH 4.084 uIU/mL Critically high 0.358-3.740 [facility] Comment on above: Performed By: #### B MP, LIPID, TSH #### [facility] [address] [place], [place] [address] Dr. Digna Thomas Vital Signs Date Time Vital Sign Value Performing Clinician Facility 12-27-2024 08:36-0400 Body height 165.1 cm [facility] 12-27-2024 08:36-0400 Body mass index (BMI) [Ratio] 50.4 kg/m2 [facility] 12-27-2024 08:36-0400 Body weight 137.43 kg [facility] 12-27-2024 08:36-0400 Diastolic blood pressure 82 mm[Hg] [facility] 12-27-2024 08:36-0400 Heart rate 66 /min [facility] 12-27-2024 08:36-0400 Respiratory rate 12 /min [facility] 12-27-2024 08:36-0400 SaO2% (BldA) [Mass fraction] 98 % [facility] 12-27-2024 08:36-0400 Systolic blood pressure 130 mm[Hg] [facility] 10-27-2024 13:58-0500 Body height 165.1 cm [facility] 10-27-2024 13:58-0500 Body mass index (BMI) [Ratio] 49.4 kg/m2 [facility] 10-27-2024 13:58-0500 Body weight 134.71 kg [facility] 10-27-2024 13:58-0500 Diastolic blood pressure 79 mm[Hg] [facility] 10-27-2024 13:58-0500 Heart rate 83 /min [facility] 10-27-2024 13:58-0500 Respiratory rate 18 /min [facility] 10-27-2024 13:58-0500 SaO2% (BldA) [Mass fraction] 99 % [facility] 10-27-2024 13:58-0500 Systolic blood pressure 125 mm[Hg] [facility] 08-23-2024 08:40-0500 Body height 165.1 cm [facility] 08-23-2024 08:40-0500 Body mass index (BMI) [Ratio] 46 kg/m2 [facility] 08-23-2024 08:40-0500 Body weight 125.36 kg [facility] 08-23-2024 08:40-0500 Diastolic blood pressure 79 mm[Hg] [facility] 08-23-2024 08:40-0500 Heart rate 66 /min [facility] 08-23-2024 08:40-0500 Respiratory rate 16 /min [facility] 08-23-2024 08:40-0500 Systolic blood pressure 127 mm[Hg] [facility] 08-18-2024 12:29-0500 Body height 165.1 cm [facility] 08-18-2024 12:29-0500 Body mass index (BMI) [Ratio] 48.4 kg/m2 [facility] 08-18-2024 12:29-0500 Body temperature 98.8 [degF] [facility] 08-18-2024 12:29-0500 Body weight 132 kg [facility] 08-18-2024 12:29-0500 Diastolic blood pressure 73 mm[Hg] [facility] 08-18-2024 12:29-0500 Heart rate 76 /min [facility] 08-18-2024 12:29-0500 Respiratory rate 17 /min [facility] 08-18-2024 12:29-0500 SaO2% (BldA) [Mass fraction] 97 % [facility] 08-18-2024 12:29-0500 Systolic blood pressure 125 mm[Hg] [facility] 08-07-2024 13:26-0500 Body height 165.1 cm Antione Sugey DO Work Phone: [facility] 08-07-2024 13:26-0500 Body mass index (BMI) [Ratio] 45.43 kg/m2 Antione Sugey DO Work Phone: [facility] 08-07-2024 13:26-0500 Body weight 123.83 kg Antione Sugey DO Work Phone: [facility] 08-07-2024 13:26-0500 Diastolic blood pressure 74 mm[Hg] Antione Sugey DO Work Phone: [facility] 08-07-2024 13:26-0500 Heart rate 70 /min Antione Sugey DO Work Phone: [facility] 08-07-2024 13:26-0500 SaO2% (BldA) [Mass fraction] 97 % Antione Sugey DO Work Phone: [facility] 08-07-2024 13:26-0500 Systolic blood pressure 118 mm[Hg] Antione Sugey DO Work Phone: [facility] 07-22-2024 10:35-0500 Body height 165.1 cm [facility] 07-22-2024 10:35-0500 Body mass index (BMI) [Ratio] 44.1 kg/m2 [facility] 07-22-2024 10:35-0500 Body weight 120.25 kg [facility] 07-22-2024 10:35-0500 Diastolic blood pressure 95 mm[Hg] [facility] 07-22-2024 10:35-0500 Heart rate 74 /min [facility] 07-22-2024 10:35-0500 Respiratory rate 16 /min [facility] 07-22-2024 10:35-0500 Systolic blood pressure 164 mm[Hg] [facility] 06-21-2024 11:44-0400 Body height 165.1 cm [facility] 06-21-2024 11:44-0400 Body mass index (BMI) [Ratio] 42.3 kg/m2 [facility] 06-21-2024 11:44-0400 Body weight 115.26 kg [facility] 06-21-2024 11:44-0400 Diastolic blood pressure 78 mm[Hg] [facility] 06-21-2024 11:44-0400 Heart rate 71 /min [facility] 06-21-2024 11:44-0400 Respiratory rate 12 /min [facility] 06-21-2024 11:44-0400 Systolic blood pressure 129 mm[Hg] [facility] 04-16-2024 08:34-0400 Body height 165.1 cm [facility] 04-16-2024 08:34-0400 Body mass index (BMI) [Ratio] 40.3 kg/m2 [facility] 04-16-2024 08:34-0400 Body weight 109.99 kg [facility] 04-16-2024 08:34-0400 Diastolic blood pressure 81 mm[Hg] [facility] 04-16-2024 08:34-0400 Heart rate 71 /min [facility] 04-16-2024 08:34-0400 Respiratory rate 12 /min [facility] 04-16-2024 08:34-0400 Systolic blood pressure 117 mm[Hg] [facility] 01-27-2024 13:11-0400 Body height 165.1 cm [facility] 01-27-2024 13:11-0400 Body mass index (BMI) [Ratio] 42.9 kg/m2 [facility] 01-27-2024 13:11-0400 Body temperature 97.1 [degF] [facility] 01-27-2024 13:11-0400 Body weight 117.02 kg [facility] 01-27-2024 13:11-0400 Heart rate 64 /min [facility] 01-27-2024 13:11-0400 Respiratory rate 16 /min [facility] 01-27-2024 13:11-0400 SaO2% (BldA) [Mass fraction] 97 % [facility] 01-15-2024 08:41-0400 Body height 165.1 cm [facility] 01-15-2024 08:41-0400 Body mass index (BMI) [Ratio] 43 kg/m2 [facility] 01-15-2024 08:41-0400 Body weight 117.25 kg [facility] 01-15-2024 08:41-0400 Diastolic blood pressure 79 mm[Hg] [facility] 01-15-2024 08:41-0400 Heart rate 76 /min [facility] 01-15-2024 08:41-0400 Respiratory rate 12 /min [facility] 01-15-2024 08:41-0400 Systolic blood pressure 127 mm[Hg] [facility] 11-20-2023 12:57-0400 Body height 165.1 cm [facility] 11-20-2023 12:57-0400 Body mass index (BMI) [Ratio] 46.3 kg/m2 [facility] 11-20-2023 12:57-0400 Body weight 126.26 kg [facility] 11-20-2023 12:57-0400 Diastolic blood pressure 70 mm[Hg] [facility] 11-20-2023 12:57-0400 Systolic blood pressure 122 mm[Hg] [facility] 10-17-2023 09:00-0500 Body height 165.1 cm Kelechi Ball Other [employer] Other 10-17-2023 09:00-0500 Body mass index (BMI) [Ratio] 48.49 kg/m2 Kelechi Ball Other [employer] Other 10-17-2023 09:00-0500 Body weight 132.18 kg Kelechi Ball Other [employer] Other 10-17-2023 09:00-0500 Diastolic blood pressure 88 mm[Hg] Kelechi Ball Other [facility] [employer] Other 10-17-2023 09:00-0500 Respiratory rate 12 /min Kelechi Ball Other [facility] [employer] Other 10-17-2023 09:00-0500 Systolic blood pressure 138 mm[Hg] Kelechi Ball Other [facility] [employer] Other 09-22-2023 09:00-0500 Body height 165.1 cm Kelechi Ball Other [facility] 09-22-2023 09:00-0500 Body mass index (BMI) [Ratio] 50.25 kg/m2 Kelechi Ball Other [facility] [employer] Other 09-22-2023 09:00-0500 Body weight 136.99 kg Kelechi Ball Other [facility] [employer] Other 09-22-2023 09:00-0500 Body weight 136.98 kg [facility] 09-22-2023 09:00-0500 Diastolic blood pressure 85 mm[Hg] Kelechi Ball Other [facility] 09-22-2023 09:00-0500 Respiratory rate 12 /min Kelechi Ball Other [facility] [employer] Other 09-22-2023 09:00-0500 Systolic blood pressure 136 mm[Hg] Kelechi Ball Other [facility] 08-22-2023 08:30-0500 Body height 165.1 cm Kelechi Ball Other [facility] 08-22-2023 08:30-0500 Body mass index (BMI) [Ratio] 52.95 kg/m2 Kelechi Ball Other [employer] Other 08-22-2023 08:30-0500 Body weight 144.34 kg Kelechi Ball Other [employer] Other 08-22-2023 08:30-0500 Body weight 144.33 kg [facility] 08-22-2023 08:30-0500 Diastolic blood pressure 75 mm[Hg] Kelechi Ball Other [facility] 08-22-2023 08:30-0500 Respiratory rate 12 /min Kelechi Ball Other [facility] [employer] Other 08-22-2023 08:30-0500 Systolic blood pressure 115 mm[Hg] Kelechi Ball Other [facility] 05-26-2023 09:40-0400 Body height 165.1 cm Angélica Hue Other [employer] Other 05-26-2023 09:40-0400 Body mass index (BMI) [Ratio] 51.88 kg/m2 Angélica Hue Other [employer] Other 05-26-2023 09:40-0400 Body temperature 98 [degF] Angélica Hue Other [employer] Other 05-26-2023 09:40-0400 Body weight 141.43 kg Angélica Hue Other [employer] Other 05-26-2023 09:40-0400 Diastolic blood pressure 68 mm[Hg] Angélica Hue Other [employer] Other 05-26-2023 09:40-0400 Respiratory rate 18 /min Angélica Hue Other [employer] Other 05-26-2023 09:40-0400 SaO2% (BldA) [Mass fraction] 96 % Angélica Swann Other [employer] Other 05-26-2023 09:40-0400 Systolic blood pressure 110 mm[Hg] Angélica Swann Other [employer] Other 02-28-2023 13:15-0400 Body height 165.1 cm Kelechi Ball Other [employer] Other 02-28-2023 13:15-0400 Body mass index (BMI) [Ratio] 52.55 kg/m2 Kelechi Ball Other [employer] Other 02-28-2023 13:15-0400 Body weight 143.25 kg Kelechi Ball Other [employer] Other 02-28-2023 13:15-0400 Diastolic blood pressure 77 mm[Hg] Kelechi Ball Other [employer] Other 02-28-2023 13:15-0400 Respiratory rate 12 /min Kelechi Ball Other [employer] Other 02-28-2023 13:15-0400 Systolic blood pressure 118 mm[Hg] Kelechi Ball Other [employer] Other 01-16-2023 12:30-0400 Body height 165.1 cm Kelechi Ball Other [employer] Other 01-16-2023 12:30-0400 Body mass index (BMI) [Ratio] 52.28 kg/m2 Kelechi Ball Other [employer] Other 01-16-2023 12:30-0400 Body weight 142.52 kg Kelechi Ball Other [employer] Other 01-16-2023 12:30-0400 Diastolic blood pressure 72 mm[Hg] Kelechi Ball Other [employer] Other 01-16-2023 12:30-0400 Respiratory rate 16 /min Kelechi Ball Other [employer] Other 01-16-2023 12:30-0400 Systolic blood pressure 147 mm[Hg] Kelechi Ball Other [employer] Other 01-11-2023 18:10-0400 Body height 165.1 cm Angélica Mcqueenmond Other [employer] Other 01-11-2023 18:10-0400 Body mass index (BMI) [Ratio] 52.41 kg/m2 Angélica Mcqueenmond Other [employer] Other 01-11-2023 18:10-0400 Body temperature 99.6 [degF] Angélica Hue Other [employer] Other 01-11-2023 18:10-0400 Body weight 142.88 kg Angélica Hue Other [employer] Other 01-11-2023 18:10-0400 Diastolic blood pressure 64 mm[Hg] Angélica Hue Other [employer] Other 01-11-2023 18:10-0400 Respiratory rate 20 /min Angélica Hue Other [employer] Other 01-11-2023 18:10-0400 SaO2% (BldA) [Mass fraction] 96 % Angélica Swann Other [employer] Other 01-11-2023 18:10-0400 Systolic blood pressure 117 mm[Hg] Angélica Swann Other [employer] Other 10-18-2022 12:00-0500 Body height 165.1 cm Kelechi Ball Other [employer] Other 10-18-2022 12:00-0500 Body mass index (BMI) [Ratio] 52.31 kg/m2 Kelechi Ball Other [employer] Other 10-18-2022 12:00-0500 Body weight 142.61 kg Kelechi Ball Other [employer] Other 10-18-2022 12:00-0500 Diastolic blood pressure 84 mm[Hg] Kelechi Ball Other [employer] Other 10-18-2022 12:00-0500 Respiratory rate 12 /min Kelechi Ball Other [employer] Other 10-18-2022 12:00-0500 Systolic blood pressure 122 mm[Hg] Kelechi Ball Other [employer] Other Encounters Encounter Date Encounter Type Care Provider Facility Start: 03-12-2025 End: 03-12-2025 Patient encounter procedure Jeny Manley NP-C -MRI [address] [facility] Work Phone: Start: 03-12-2025 End: 03-12-2025 ambulatory Kelechi Ball DO Work Phone: [facility] Work Phone: Start: 12-27-2024 End: 12-27-2024 ambulatory [facility] Work Phone: Start: 12-27-2024 End: 12-27-2024 Patient encounter procedure [facility] Work Phone: Start: 12-17-2024 Non-patient / Non-visit [facility] Work Phone: Start: 10-27-2024 End: 10-27-2024 ambulatory [facility] Work Phone: Start: 10-27-2024 End: 10-27-2024 Patient encounter procedure [facility] Work Phone: Start: 10-09-2024 Non-patient / Non-visit [facility] Work Phone: Start: 08-29-2024 Non-patient / Non-visit [facility] Work Phone: Start: 08-23-2024 End: 08-23-2024 Encounter for general adult medical examination without abnormal findings [facility] Start: 08-23-2024 End: 08-23-2024 Patient encounter procedure [facility] Work Phone: Start: 08-21-2024 Patient encounter status [facility] Start: 08-18-2024 End: 08-18-2024 Patient encounter procedure [facility] Work Phone: Start: 08-07-2024 End: 08-07-2024 Bamboo flowsheet Antione Sugey DO Work Phone: [employer] [address] Start: 08-07-2024 End: 08-07-2024 Bamboo flowsheet Antione Sugey DO Work Phone: [employer] [address] Start: 08-07-2024 End: 08-07-2024 Office outpatient visit 25 minutes Antione Madera DO Work Phone: [employer] [address] Comment on above: REBA (obstructive sle ep apnea) (Primary Dx); Hypoxia; Hypersomnia; Obesity due to excess calories, unspecified class, unspecified whether serious comorbidity present; Snoring Start: 08-07-2024 End: 08-07-2024 ambulatory ANTIONE MADERA Not Available Start: 07-22-2024 End: 07-22-2024 ambulatory [facility] Work Phone: Start: 07-22-2024 End: 07-22-2024 Patient encounter procedure [facility] Work Phone: Start: 06-21-2024 End: 06-21-2024 ambulatory [facility] Work Phone: Start: 06-21-2024 End: 06-21-2024 Patient encounter procedure [facility] Work Phone: Start: 04-16-2024 End: 04-16-2024 ambulatory [facility] Work Phone: Start: 04-16-2024 End: 04-16-2024 Patient encounter procedure [facility] Work Phone: Start: 01-27-2024 End: 01-27-2024 ambulatory [facility] Work Phone: Start: 01-27-2024 End: 01-27-2024 Patient encounter procedure [facility] Work Phone: Start: 01-15-2024 End: 01-15-2024 ambulatory [facility] Work Phone: Start: 01-15-2024 End: 01-15-2024 Patient encounter procedure [facility] Work Phone: Start: 11-27-2023 End: 11-28-2023 ambulatory Joe Becerra MD Facility:[facility] Start: 11-20-2023 Non-patient / Non-visit [facility] Work Phone: Start: 10-27-2023 End: 10-27-2023 ambulatory [facility] Work Phone: Start: 10-27-2023 End: 10-27-2023 Patient encounter procedure [facility] Work Phone: Start: 10-20-2023 End: 10-20-2023 ambulatory Kelechi Ball Other [employer] Other Start: 10-20-2023 Encounter by alysha lizarraga Kelechi Galvan [facility] Start: 10-17-2023 End: 10-17-2023 ambulatory Kelechi Ball Other [employer] Other Start: 10-17-2023 Office outpatient vi sit 15 minutes Kelechi Ball [facility] Start: 09-22-2023 End: 09-22-2023 ambulatory Kelechi Ball Other [employer] Other Start: 09-22-2023 Office outpatient vi sit 15 minutes Kelechi Ball [facility] Start: 09-22-2023 End: 09-22-2023 Patient encounter procedure [facility] Work Phone: Start: 09-08-2023 End: 09-08-2023 ambulatory Kelechi Ball Other [employer] Other Start: 09-08-2023 Telephone encounter Kelechi Ball [facility] Start: 08-28-2023 End: 08-28-2023 ambulatory Kelechi Ball Other [employer] Other Start: 08-28-2023 Telephone encounter Kelechi Ball [facility] Start: 08-26-2023 End: 08-26-2023 ambulatory Kelechi Ball Other [employer] Other Start: 08-26-2023 Telephone encounter Kelechi Ball [facility] Start: 08-22-2023 End: 08-22-2023 ambulatory Kelechi Ball Other [employer] Other Start: 08-22-2023 Encounter for genera l adult medical examination without abnormal findings Kelechi Galvan [facility] Start: 08-22-2023 Periodic preventive med est patient 40-64yrs Kelechi Galvan [facility] Start: 08-22-2023 End: 08-22-2023 Patient encounter procedure [facility] Work Phone: Start: 05-26-2023 End: 05-26-2023 ambulatory Angélica Swann Other [employer] Other Start: 05-26-2023 Office outpatient vi sit 15 minutes Angélica Swann [facility] Start: 04-18-2023 End: 04-18-2023 ambulatory Kelechi Galvan Other [employer] Other Start: 04-18-2023 Office outpatient vi sit 15 minutes Kelechi Galvan [facility] Start: 02-28-2023 End: 02-28-2023 ambulatory Kelechi Galvan Other [employer] Other Start: 02-28-2023 Office outpatient vi sit 15 minutes Kelechi Galvan [facility] Start: 01-19-2023 End: 01-19-2023 ambulatory Kelechi Galvan Other [employer] Other Start: 01-19-2023 Telephone encounter Kelechi Galvan [facility] Start: 01-16-2023 End: 01-16-2023 ambulatory Kelechi Galvan Other [employer] Other Start: 01-16-2023 Office outpatient vi sit 25 minutes Kelechi Galvan [facility] Start: 01-11-2023 End: 01-11-2023 Patient encounter procedure [employer]IM TURNING MACHINE OPERATOR-C Angélica Swann Work Phone: [facility] Work Phone: Start: 01-11-2023 End: 01-11-2023 ambulatory RIM TURNING MACHINE OPERATOR-C Angélica Swann Work Phone: [facility] Work Phone: Start: 01-11-2023 Office outpatient vi sit 15 minutes Angélica Swann [facility] Start: 01-11-2023 Telephone encounter Kelechi Galvan [facility] Start: 01-09-2023 Encounter for genera l adult medical examination without abnormal findings DR KELECHI GALVAN [facility] Start: 01-05-2023 End: 01-06-[address] KELECHI GALVAN Facility:[facility] Start: 01-05-2023 End: 01-06-2023 Encounter for general adult medical examination without abnormal findings DR KELECHI GALVAN Facility:[facility] Start: 01-03-2023 End: 01-03-2023 ambulatory Kelechi Galvan Other [employer] Other Start: 01-03-2023 Encounter for genera l adult medical examination without abnormal findings Kelechi Galvan [facility] Start: 01-03-2023 Patient encounter status Conrad kan Galvan Other [employer] Other Start: 01-03-2023 Telephone encounter Kelechi Galvan [facility] Start: 12-21-2022 End: 12-22-[address] KELECHI GALVAN Facility:[facility] Start: 12-08-2022 End: 12-09-[address] KELECHI GALVAN Facility:[facility] Start: 11-23-2022 End: 11-23-2022 ambulatory Kelechi Galvan Other [employer] Other Start: 11-23-2022 Telephone encounter Kelechi GRANDA [facility] Start: 11-16-2022 End: 11-17-[address] KELECHI GALVAN Facility:[facility] Start: 11-09-2022 End: 11-24-[address] KELECHI GALVAN Facility:[facility] Start: 11-03-2022 End: 11-04-[address] KELECHI GALVAN Facility:[facility] Start: 10-27-2022 End: 10-28-[address] KELECHI GALVAN [employer] Other Start: 10-27-2022 Telephone encounter Kelechi Cole JESUS ALBERTO [facility] Start: 10-18-2022 End: 10-18-2022 ambulatory Kelechi Galvan Other [employer] Other Start: 10-18-2022 Office outpatient vi sit 25 minutes Kelechi Galvan [facility] Start: 10-07-2022 End: 10-07-2022 ambulatory Kelechi Galvan Other [employer] Other Start: 10-07-2022 Telephone encounter Kelechi Galvan [facility] Start: 08-26-2022 Adult health examination Conrad omer Cole Other [employer] Other Start: 07-11-2022 End: 07-12-[address] KELECHI GALVAN Facility: Start: 04-07-2022 End: 04-08-[address] DEANN ELIAS . Facility: Start: 07-28-2019 Pre-procedure evalua tion check Kelechi Galvan Other [employer] Other Start: 07-17-2018 Gynecological examination normal Kelechi Galvan Other [employer] Other Procedures Date Procedure Procedure Detail Performing Clinician Start: 03-12-2025 MR lumbar spine wo con Kelechi Galvan DO Work Phone: Start: 01-11-2023 Plain X-ray of right hand RIM TURNING MACHINE OPERATOR-C Angélica Swann Work Phone: Start: 01-18-2019 [...] EST Office Visit [facility] [address] [place] [address] Antione MaderaDO [address] [place] [id number] Arrived [facility] [address] [address] Comment on above: Arrived Start: 03-09-2023 ambulatory Ambulatory Facility:H 1 Comprehensive metabo lic 2000 panel - Serum or Plasma [facility] MG Breast - bilatera l Screening [facility] Patient Education Low back pain in adults [facility] Work Phone: [facility] Payers Date Payer Category Payer Self-pay [id number] 2025 Unknown [id number] 2023 Unknown 2021 Private Health Insurance [facility] [employer] [id number] 1974 Unknown [id number] [id number]. 593 1974 Unknown [id number] 2.840.1.849138.3.579.2. 593 1974 Unknown [id number] [id number]. 593 1974 Unknown [id number] [id number]. 593 1974 Unknown [id number] 2.16.840.1.126130.3.579.2. 593 1974 Unknown [id number] 2.16.840.1.563397.3.579.2. 593 1974 Unknown [id number] 2.16.840.1.568878.3.579.2. 593 1974 Unknown [id number] 2.16.840.1.989940.3.579.2. 593 1974 Unknown [id number] 2.16.840.1.804988.3.579.2. 593 1974 Unknown [id number] 2.16.840.1.746410.3.579.2. 593 1974 Unknown [id number] 2.16.840.1.804471.3.579.2. 593 1974 Unknown [id number] 2.16.840.1.002435.3.579.2. 196 1974 Unknown [id number] 2.16.840.1.072701.3.579.2. 1259 1959 Unknown [id number] [id number] 1959 Unknown [id number] Medicaid [place] [employer] [id number] Unknown [id number] [id number]. 531 Social History Date Type Detail Facility Unknown if ever smoked [employer] Other Start: 08-07-2024 Sex Assigned At [employer] Other Start: 1975 Sex Assigned At Female [facility] Start: 05-16-2018 End: 05-16-2018 Tobacco smoking status NHIS Never smoked tobacco (finding) [facility] Start: 01-27-2024 End: 01-27-2024 Tobacco smoking status NHIS Ex-smoker (finding) [facility] Start: 07-22-2024 End: 12-27-2024 Sex Female (finding) [facility] Tobacco smoking stat us NDIS Tobacco smoking consumption unknown [facility] Start: 1975 Sex assigned at Not on file [facility] Start: 09-11-1988 End: 09-11-2003 History of tobacco use Current smoker [facility] Start: 09-11-1988 End: 09-11-2003 History of tobacco use Cigarette Smoker [facility] Start: 08-07-2024 Cigarettes smoked current (pack per day) - Reported 1.5 [facility] Start: 08-07-2024 Tobacco use and exposure Smokeless tobacco non-user [facility] Start: 08-07-2024 Alcoholic beverage intake Lifetime non-drinker (finding) [facility] Medical Equipment Procedure Code Equipment Code [...] 06-10-2024 End: 06-10-2024 Clinical Notes 05-31-2011 to 12-27-2024 Note Date & Type Note Facility 12-27-2024 Evaluation note Diagnosis Onset Date Resolution Low back pain acute December 27, 2024 8:24am Lumbar spondylosis acute December 27, 2024 8:24am Major depression acute December 272024 8:24am Obesity acute December 27 8:24am REBA (obstructive sleep apnea) acute December 27, 2024 8:24am Primary hypertension acute Apri l 2024 8:24am Type 2 diabetes mellitus with hyperglycemia acute December 27, 2 025 8:24am [facility] Work Phone: 1(108) 578-556202-16-2025 Evaluation note* Diagnosis Onset Date Resolution Status Admit Date Lumbar radiculopathy noneactive Febr uary 2024 1:38pm Lumbar spondylosis acute December 27, 2024 8:24am [facility] Work Phone: 1(779) 666-795112-08-2024 Evaluation note* Diagnosis Onset Date Resolution Status Admit Date Otitis media noneactive August 12:19pm Insomnia acute August 23, 2024 8:26am Major depression acute August 23, 2024 8:26am Obesity acute August 23, 2024 8:26am REBA (obstructive sleep apnea) acute August 23, 2024 8:26am Primary hypertension acute Dece mb2023 8:26am Prolactinoma acute August 8:26am Screening mammogram for breast cancer acute August 23, 2 024 8:26am Type 2 diabetes mellitus wit h hyperglycemia acute August 23, 2 024 8:26am Wellness examination acute Dece 2023 8:26am [facility] Work Phone: 1(751) 356-382311-27-2024 History of Present illness Narrative* Antione Madera, - 08/07/2024 1:30 PM EST Chief Complaint [...] minutes and residual AHI of 0.3. Her Blandford Sleepiness scale is a 3. She does have underlying obesity but is trying to work hard with diet exercise and weight loss. [place] about 70 lb but gained a litte bit back and knows she needs to get back on her regular programas she was doing very well. Plan Compliance data was reviewed with her and she is compliant Blandford Sleepiness scale is 3 Continue use the CPAP machine whenever sleeping Get back on the diet and exercise regimen The patient was counseled on the need for aggressive diet, exercise, and weight loss. The patient was counseled on proper sleep hygiene and adequate hours of sleep. The patient was counseled on the risks of stroke, DE, and sudden with REBA, along with the [...] to clinic: 1 year documented in this encounterMiss[facility] [id number] Evaluation note* Diagnosis Onset Date Resolution Status Admit Date Carpal tunnel syndrome of right wrist acute June 21 11:38am Insomnia acute June 21, 2024 11:38am Major depression acute June 21, 2024 11:38am Panic attack acute June 11:38am Insomnia acute July 22, 2024 10:19am Major depression acute July 22, 2024 10:19am Panic attack acute July 10:19am Primary hypertension acute Nove mber 2023 10:19am [facility] Work Phone: 1(848) 103-632202-09-2024 Evaluation note* Encounter Date Diagnosis Assessment Notes Treatment Notes Treatment Clinical Notes Oct, Morbid (severe) obesity due to excess calories (ICD-10 - E66.01) [employer] Other 02-06-2024 Evaluation note* Encounter Date Diagnosis [...] index [BMI] 50.0-59.9, adult (ICD-10 - Z68.43) [employer] Other 01-12-2024 Evaluation note* Encounter Date Diagnosis [...] index [BMI] 50.0-59.9, adult (ICD-10 - Z68.43) [employer] Other 12-29-2023 Evaluation note* Encounter Date Diagnosis Assessment Notes Treatment Notes Treatment Clinical Notes Aug, Prolactinoma (ICD-10 - D35.2) MRI < 10mm, prolactin 80 - 2022 [employer] Other 12-16-2023 Evaluation note* Encounter Date Diagnosis Assessment Notes Treatment Notes Treatment Clinical Notes Aug, Hyperprolactinemia (ICD-10 - E22.1) [employer] Other 12-12-2023 Evaluation note* Encounter Date Diagnosis [...] use, the patient reduces the risk for DE, CVA, HTN, cardiac dysrhythmias and sudden cardiac [...] patient on monthly SBE and yearly mammograms. [employer] Other 09-15-2023 Evaluation note* Encounter Date Diagnosis [...] thoracic region, initial encounter (ICD-10 - S29.019A) [employer] Other 08-08-2023 Evaluation note* Encounter Date Diagnosis Assessment Notes Treatment Notes Treatment Clinical Notes Apr, Sharmin-menopausal (ICD-10 - N95.1) Recommend [facility]. Apr, Primary hypertension (ICD-10 - I10) This [...] use, the patient reduces the risk for DE, CVA, HTN, cardiac dysrhythmias and sudden cardiac deaths.The patient is also aware of the association between REBA and morning headaches, daytime somnolence, fatigue and obesity, which also has been improved with continued use.The patient is compliant with treatment, wearing the equipment every night for greater than 4 hours.The patient is instructed to continue use of the CPAP for REBA treatment. [employer] Other 06-20-2023 Evaluation note* Encounter Date Diagnosis Assessment Notes Treatment Notes Treatment Clinical Notes Feb, Seborrheic dermatitis of scalp (ICD-10 - L21.9) Keep clean, avoid scratching Stop using Mupirocin Initiate topical steroid ointment Feb, Primary hypertension (ICD-10 - I10) This patient is instructed to consume a healthy, low-fat, low-salt diet. They are also encouraged to continue exercise to achieve/maintain a normal BMI. [employer] Other 05-11-2023 Evaluation note* Encounter Date Diagnosis Assessment Notes Treatment Notes Treatment Clinical Notes January, Type 2 diabetes mellitus with hyperglycemia, without long-term current use of insulin (ICD-10 - E11.65) [employer] Other 05-08-2023 Evaluation note* Encounter Date Diagnosis [...] use, the patient reduces the risk for DE, CVA, HTN, cardiac dysrhythmias and sudden cardiac [...] visual defects. January, Hyperprolactinemia (ICD-10 - E22.1) [employer] Other 05-03-2023 Evaluation note* Encounter Date Diagnosis Assessment Notes Treatment Notes Treatment Clinical Notes January, REBA (obstructive sleep apnea) (ICD-10 - G47.33) AHI 104 w/ Psat 68%, BiPAP , full facial mask [employer] Other 05-03-2023 Evaluation note* Encounter Date Diagnosis [...] no improvement in 2 to 3 days [employer] Other 04-25-2023 Evaluation note* Encounter Date Diagnosis Assessment Notes Treatment Notes Treatment Clinical Notes Dec, Type 2 diabetes mellitus with hyperglycemia, without long-term current use of insulin (ICD-10 - E11.65) Dec, Primary hypertension (ICD-10 - I10) Dec, Wellness examination (ICD-10 - Z00.00) [employer] Other 03-30-2023 NoteCONSULTATION CONSULTATION DATE: 12/08/2022 TO: [...] this point for her residual pain symptoms.[id number] Evaluation note* Encounter Date Diagnosis Assessment Notes Treatment Notes Treatment Clinical Notes Nov, REBA (obstructive sleep apnea) (ICD-10 - G47.33) AHI 101 w/ Psat 79% [employer] Other 03-15-2023 Evaluation note* Encounter Date Diagnosis Assessment Notes Treatment Notes Treatment Clinical Notes Nov, REBA (obstructive sleep apnea) (ICD-10 - G47.33) AHI 104 w/ Psat 68% [employer] Other 02-23-2023 NotePAIN MANAGEMENT CONSULTATION CONSULTATION DATE: [...] four weeks' time or sooner if needed.[facility] 11-03-2022 NotePAIN MANAGEMENT CONSULTATION CONSULTATION DATE: [...] on his response to change in medication.[facility] 10-18-2022 Evaluation note* Encounter Date Diagnosis [...] weekly. Oct, Suspected sleep apnea (ICD-10 - R26.252) Referral for sleep study [facility] [employer] Other 07-28-2022 NoteCONSULTATION CONSULTATION DATE: 04/07/2022 HISTORY [...] Patient states understanding and all questions answered.[facility] [id number] History general Narrative - Reported* Type Description Date Medical History hypertension Medical History back pain Medical History degenerative disc disease Medical History Prolactinoma Medical History asthma Surgical History C section 05/31/2011 Surgical History IVF 12/01/2008 Surgical History hysterectomy laps assisted - 007 Surgical History right foot sx (planter) Hospitalization History see above Hospitalization History blood transfusion 09/2014 [facility] [employer] Other Chief complaint+Reason for visit Narrative* Chief Complaint COVID+ Amb Documentation 3 month follow up Reason for Visit COVID-19 Lumbar spondylosis REBA (obstructive sleep apnea) Primary hypertension Type 2 diabetes mellitus with hyperglycemia [facility] Work Phone: Evaluation noteNo InformationNortWarren [facility] [employer] Other Evaluation noteNo assessment information available [facility] Work Phone: Evaluation note* Diagnosis Onset Date Resolution Status Type 2 diabetes mellitus with hyperglycemia acute COVID-19 noneactive [facility] Work Phone: Evaluation note* Diagnosis Onset Date Resolution Status COVID-19 noneactive Lumbar spondylosis acute REBA (obstructive sleep apnea) acute Primary hypertension acute Type 2 diabetes mellitus with hyperglycemia acute [facility] Work Phone: Evaluation note* Diagnosis Onset Date Resolution Status Obesity acute Primary hypertension acute Type 2 diabetes mellitus with hyperglycemia acute [facility] Work Phone: Evaluation note* Diagnosis Onset Date Resolution Status Right otitis media with effusion acute Obesity acute Primary hypertension acute Type 2 diabetes mellitus with hyperglycemia acute [facility] Work Phone: Evaluation note* Diagnosis Onset Date Resolution Status Obesity acute REBA (obstructive sleep apnea) acute Palpitation acute Primary hypertension acute Type 2 diabetes mellitus with hyperglycemia acute [facility] Work Phone: Evaluation note* Diagnosis REBA (obstructive [...] see above Hospitalization History blood transfusion 09/2014 [employer] Other Reason for referral (narrative)No reason for referral information availableC[facility] Work Phone: Summary Purpose Family History No Family History [...] 2024 8:26am Screening mammogram for breast cancer [facility] 2023 8:26am Type 2 diabetes mellitus with hyperglyce wiliam August 23, 2024 8:26am Wellness examination August 23, 2024 8:26am Chief Complaint Admit Date left hip pain unk injury October 27, 2024 1:38pm 4 month f/u December 27, 2024 8:2 4am Reason for Visit Admit Date Lumbar radiculopathy October 27, 2024 1:38pm Lumbar spondylosis December 27, 2024 8:2 4am Chief Complaint Admit Date 4 month f/u December 27, 2024 8:2 4am lumbar radiculopathy, lumbar discogenic changes March 12, 2025 7:34am Reason for Visit Admit Date Low back pain December 27, 2024 8:2 4am Lumbar spondylosis December 27, 2024 8:2 4am Major depression December 27, 2024 8:2 4am Obesity December 27, 2024 8:2 4am REBA (obstructive sleep apnea) December 8:24am Primary hypertension December 27, 2024 8: 24am Type 2 diabetes mellitus with hyperglyce wiliam December 27, 2024 8:24am Additional Source Comments REASON FOR VISIT (unrecogniz ed section and content) Reason Comments Sleep Apnea INFORMATION SOURCE (unrecogn ized section and content) DATE CREATED AUTHOR 01/11/2023 [facility] DATE CREATED AUTHOR AUTHOR'S ORGANIZ ATION 01/01/2024 [facility] DATE CREATED AUTHOR AUTHOR'S ORGANIZ ATION 08/10/2024 [facility] EPIC DATE CREATED AUTHOR AUTHOR'S ORGANIZ ATION 04/03/[address] [facility] Care Teams (unrecognized sec tion and content) [...] 2024 End: December 27, 2024 Team Status: Inactive Member Role [...] July 22, 2024 End: July 22, 2024 Public Stenographer Relationship Specialty Start [place] [address] [place] [phone] PCP - General Internal Medicine 05/25/23 Public Stenographer Relationship Specialty Start [place] [address] [place] [phone] PCP - General Internal Medicine 05/25/23 Team [...] Galvan DO Primary Care Provider Active Start: December 17, 2024 Kelechi Galvan DO Attending Provider Active Sta rt: December 17, 2024 Team Status: Inactive Member Role Status Dates Kelechi Galvan DO Primary Care Provider Active Start: December 27, 2024 End: December 27, 2024 Kelechi Galvan DO Attending Provider Active Sta rt: December 27, 2024 End: December 27, 2024 Team Status: Inactive Member Role Status Dates Kelechi Galvan DO Primary Care Provider Active Start: March 12, 2025 End: March 12, 2025 TRINI Rhodes Attending Provider Active St art: March 12, 2025 End: March 12, 2025 Goals (unrecognized section and content) Goals may [...] BE BASED ON THE PRIMARY CLINICAL RECORDS. [facility] [employer] [facility]. provides no warranty or guarantee of the accuracy or completeness of information in this document.
[2025-04-14 11:20] VITALS: BP 142/89; PULSE 60; O2SAT 95; O2SAT 96
[2025-04-14 11:21] VITALS: BP 125/82
[2025-04-14] MEDS: LIDOCAINE HCL 2% 400 MG/20 ML MDV 16 ML INJ (11:26)
[2025-04-14] MEDS: METHYLPREDNISOLONE ACETATE 40 MG/ML VIAL INJ (11:30)
[2025-04-14] MEDS: BUPIVACAINE HCL 0.25% PF 25 MG/10 ML VIAL 2 ML INJ (11:30)
--- NOTE | 2025-04-14 11:40 | P.ON_ITS ---
Date of procedure: 04/14/25 Pre-op diagnosis: Pain due to lumbar spondylosis without myelopathy Post-op diagnosis: same as pre-op Procedure: Procedure: Bilateral L1-2, 2-3 radiofrequency ablation Medications: Bupivacaine 0.25% 4cc, depomedrol 80mg, lidocaine 2% 10cc The patient was seen and examined in the preoperative holding area.? The site was marked.? Written informed consent was obtained and placed on the chart.? The patient was brought to the medical procedure unit and placed in the prone position.? A timeout was completed verifying correct patient, procedure, positioning, and special requirements.? The skin overlying the target points, the designated medial branch, were prepped and draped in the usual sterile fashion.? The target point was achieved with a 20-gauge 15 cm with a 10 mm curved active tip radiofrequency cannula under direct fluoroscopic visualizatio n.? The needle was inserted at level L1 on the right side. Needle tip position was confirmed with lateral fluoroscopic position.? Motor stimulation was carried out at 2 Hz up to 5 volts with the absence of extremity activity.? This was repeated at level L2, 3 on right side.?? Sensory stimulation was carried out.? Concordant pain was realized at the above- mentioned sites.? Then radiofrequency lesioning was carried out times 90 seconds at 80 degrees times 2 lesions at each level.? The radiofrequency probe was removed prior to cannula removal.? The above-mentioned injectate was placed in 1 mL increments.? The needle was removed. The same procedure, with the same steps, was then completed on the left side at the same levels. Insertion sites were covered.? The patient was taken to the postoperative recovery area and monitored for an appropriate length of time before being found suitable for discharge in the company of a responsible adult. Anesthesia: Local Surgeon: Joe Becerra Pathology: none sent Condition: stable Disposition: no change
== END 2025-04-14 11:40 | disposition home or self-care (01) ==
LOC: SURGOUT 10:24
PROVIDERS: PCP Internal Medicine; Visit Provider Anesthesiology
DX: M47.816 Spondylosis without myelopathy or radiculopathy, lumbar region (principal); M54.50 Low back pain, unspecified; E11.8 Type 2 diabetes mellitus with unspecified complications; Z79.84 Long term (current) use of oral hypoglycemic drugs
CPT/HCPCS: 36415; 64635; 64636; 82948; J0665; J1010

== ENCOUNTER 2025-05-21 07:43 | Outpatient (OUT) | payer OTHER, SELFPAY ==
--- OUTSIDE RECORDS SUMMARY | 2024-03-05 11:30 | XMS_ITS ---
Author Organization [facility] in [place] Address [address] [place] [address] Care Team Providers Care Economic Consultant Name Role Phone Kelechi Galvan DO Primary Care Provider UnavailAustyn Cooper Unavailable [phone] REASON FOR VISIT 3 week f/u Encounters Encounter Location Date Provider Diagnosis [facility] (PODIATRY) [address] [place] [address] [place] [address] 03/05/2024 Austyn Ott Plan Of Treatment No Information Progress Notes * Jing GRAYDOB:1975 ( 49 yo F)Acc No.[id number]:03/05/2024 UNLOCKED PROGRESS NOTE Follow Up Patient: Jnig PAT Provider: La Ott DPM, MS :1975 A ge:48 Y S ex:Female Date:03/05/2024 Address:[address] [place] [address] [id number] Pcp:Kelechi Galvan DO Subjective: * Chief Complaints: * 1 . 3 week f/u. * Medical History: Objective: * Vitals: Assessment: Plan: * Treatment: * * Electronic signature of Fito Ott DPM on 05/21/2025 at 07:45 AM EDT Sign off status: Pending Visit Status: C ANC (Cancelled) * Provider: La Ott DPM, MS Date: 0 03/05/2024 Generated for Printi ng/Faxing/eTransmitting on: 0 05/21/2025 07:45 AM EDT
--- OUTSIDE RECORDS SUMMARY | 2025-05-21 07:45 | XMS_ITS | Patient Health Record ---
Author Organization [facility] in [place] Address [address] [place] [address] Care Team Providers Care Director Trial Name Role Phone Kelechi Galvan DO Primary Care Provider Unavaila ble Allergies Allergen (clinical drug ingredient) Drug/Non Drug Allergy documented on EMR Reaction Allergy Type Onset Date Status Penicillin Unknown Drug Allergy Active Reason For Referral No Information Medications Medication SIG (Take, Route, Frequency, Duration) Notes Start Date End Date Status Naproxen 500 MG 1 tablet with food o r milk as needed Orally every 12 hrs Active Potassium Chloride ER 10 MEQ 1 tablet with food Orally Twice a day Active tiZANidine HCl 4 MG 1 capsule at bedtime as needed Orally Once a day Active Atenolol 50 MG 1 tablet Orally Once a day Active Dapagliflozin Propanediol 5 MG 1 tablet Orally Once a day Active diazePAM 10 MG 1 tablet as needed O rally Once a day Active Dulaglutide 4.5 MG/0.5ML as directed Subcutaneous Active Furosemide 20 MG 1 tablet Orally Once a day Active HYDROcodone-Acetaminophen 5-325 MG Oral for 5 Days Active Lisinopril 5 MG 1 tablet Orally Once a day Active metFORMIN HCl 1000 MG 1 tablet with a me al Orally Once a day Active Social History Tobacco Use: Social History Observation Description Date Details (start date - stop date) Former Smoker NA - NA Tobacco Control (Standard) Question Answer Notes Tobacco use: Former smoker Plan Of Treatment No Information Insurance Providers Payer Name Payer Address Payer Phone Subscriber Number Group Number Insured Name Patient Relationship to Insured Coverage Start Date Coverage End Date [employer] [place] [employer] [address] [place] [address] [id number] Jing Gray Self - patient is the insured 4 Medical (General) History Medical History History ICD Code diabetes hypertension Surgical History Surgery Date(Month/Year) IVF [address] Suggs RFA x3 uterine ablation
--- OUTSIDE RECORDS SUMMARY | 2025-05-21 07:46 | XMS_ITS | Clinical Summary ---
Author Organization [facility] Address [address] [place] [address] Care Team Providers Care Acute Care Assistant Name Role Phone Kelechi Galvan Primary Care Provider [phone] Allergies Active Allergy Reactions Criticality Noted Date Comments Doxycycline 07/22/2024 Other Reaction(s): Unknown Reaction Penicillins Unknown 05/25/2023 Medications atenolol (Tenormin) 50 MG tablet Take 50 mg by mouth in the morning. 04/19/2023 Active cetirizine (ZyrTEC) 10 MG tablet Take 10 mg by mouth in the morning. 05/02/2023 Active Trulicity 4.5 MG/0.5ML solution pen-injector Inject 4.5 mg under the skin 1 (one) time per week. 05/03/2023 Active escitalopram (Lexapro) 10 MG tablet Take 10 mg by mouth in the morning. 05/15/2023 Active furosemide (Lasix) 20 MG tablet Take 20 mg by mouth in the morning. 04/05/2023 Active OneTouch Ultra test strip 1 each by Other route if needed. 04/29/2023 Active lisinopril 5 MG tablet Take 5 mg by mouth in the morning. 05/07/2023 Active potassium chloride CR (Klor-Con) 10 MEQ ER tablet Take 10 mEq by mouth in the morning. 04/30/2023 Active tiZANidine (Zanaflex) 4 MG tablet Take 4 mg by mouth every 6 (six) hours if needed. 05/16/2023 Active buPROPion HCl (WELLBUTRIN PO) 07/22/2024 Act murali Social History Tobacco Use Types Packs/Day Years Used Date Smoking Tobacco: Former Cigarettes 1.5 15 0 09/11/1988 - 09/11/2003 Smokeless Tobacco: Never Alcohol Use Standard Drinks/Week Comments Never 0 (1 standard drink = 0.6 oz pur e alcohol) Comments Unknown Sex and Gender Information Value Date Recorded Sex Assigned at Not on file Legal Sex Female 6:50 PM EDT Gender Identity Not on file Sexual Orientation Not on file Last Filed Vital Signs Vital Sign Reading Time Taken Comments Blood Pressure 118/74 08/07/2024 1:26 PM EST Pulse 70 08/07/2024 1:26 PM EST Temperature - - Respiratory Rate - - Oxygen Saturation 97% 08/07/2024 1:26 PM EST Inhaled Oxygen Concentration - - Weight 124 kg (273 lb) 08/07/2024 1:26 PM EST Height 165.1 cm (5' 5 ) 08/07/2024 1:26 PM EST Body Mass Index 45.43 08/07/2024 1:26 PM EST Plan of Treatment Not on file Insurance [employer] Care Teams Acute Care Assistant Relationship Specialty Start Date End Date Kelechi Galvan DO PCP - General Internal Medicine 05/25/23
--- OUTSIDE RECORDS SUMMARY | 2025-05-21 07:46 | XMS_ITS | Encounter Summary ---
Author Organization [facility] Address [address] [facility] [place] [address] Care Team Providers Care Certified Composites Technician Name Role Phone Kelechi Galvan DO Primary Care Provider [phone] Encounter Details Date Type Department Care Team (Late st Contact Info) Description 06/27/2023 [facility] [address] [place] [id number] Jeremy Johnson DO [address] [place], [place] [id number] Social History Tobacco Use Types Packs/Day Years Used Date Smoking Tobacco: Never Assessed Comments Unknown Sex and Gender Information Value Date Recorded Sex Assigned at Not on file Legal Sex Female 6:50 PM EDT Gender Identity Not on file Sexual Orientation Not on file documented as of this encounter Plan of Treatment Not on file documented as of this encounter Visit Diagnoses Not on filedocumented in this encounter Care Teams Certified Composites Technician Relationship Specialty Start Date End Date Kelechi Galvan DO PCP - General Internal Medicine 05/25/23 documented as of this encounter
--- OUTSIDE RECORDS SUMMARY | 2025-05-21 07:47 | XMS_ITS | CCD ---
Author Organization [facility] Care Team Providers Care Electromechanical Equipment Tester Name Role Phone Kelechi Galvan Unavailable [...] Unavailable LAKSHMIPATHY ., NARENDRANATH Admitting Bebe vailable LYDIAMIPATHZhen ., NARENDRANATH Attending Bebe vailable Angélica Swann Unavailable ELIAS SwannC Angélica Attending Provider Kelechi Galvan MD Primary Care Provider ANTIONE MADERA Attending Unavailable Kelechi Galvan DO Primary Care Provider [phone] Kelechi Galvan DO Attending Provider Sindhu FITNESS TRAINER-CJeny Attending Provider Kelechi Galvan Primary Care Unavailable Jeny Manley Attending Unavailable Jeny Manley Admitting Unavailable Kelechi Galvan DO Primary Care Provider Kelechi Galvan DO Attending Provider [phone] BURGESS, Joe Ko Attending Unavailable Allergies Allergy Classification Reported Allergen(s) Allergy Type Date of Onset Reaction(s) Facility (13 sources) Penicillin G Drug Allergy pt doesn't remember [facility] Other (2 sources) Penicillins Drug allergy (disorder) 3 [facility] Repository (20 sources) Doxycycline Drug Allergy 4 Unknown, Unknown Reaction [facility] (2 sources) Penicillin Drug Allergy Unknown [facility] Other (9 sources) Penicillin G Benzathine & Proc Drug allergy 7 Unknown [facility] Other (2 sources) patient allergy list reviewed by nurse or physicia Propensity to adverse reactions 4 Comment:Done [facility] Other (2 sources) Allergies Reconciled Propensity to adverse reactions Unknown [facility] Other (11 sources) Penicillin G Benzathine; Translations: [penicillin G benzathine] Allergy to substance 4 Unknown Reaction [facility] Comment on above: Onset Date: 12/22/19 07 (3 sources) Penicillins Propensity to adverse reactions 3 Unknown [facility] Work Phone: (1 source) Doxycycline Drug Allergy [facility] Repository Medications Current Medications Medication Drug Class(es) Dates Sig (Normalized) Sig (Original) atenolol 50 mg oral tablet (20 sources) beta-Adrenergic Selin Start: 04-08-2024 End: 03-30-2025 take 1 tablet by mouth once daily Atenolol 50 mg tablet Active 0 .ROUTE .COMPLEX March 30, 2025 8:10am TAKE 1 TABLET BY MOUTH EVERY DAY Complies with drug therapy Start: 04-19-2023 End: 04-08-2024 take 1 tablet by mouth once daily Atenolol 50 mg tablet Discontinued 50 MG PO Daily October 27, 2023 1:00am April 08, 2024 9:59am Atenolol Not-Anuj ing/PRN Atenolol Not-Anuj ing Atenolol Active cyclobenzaprine hydrochloride 10 mg oral tablet [...] MG PO Daily December 27, 2024 8:55am Complies with drug therapy Start: 07-15-2024 End: 12-27-2024 take 1 tablet [...] sources) Angiotensin Converting Enzyme Inhibitor Start: 04-08-2024 End: 03-30-2025 take 1 tablet by mouth once daily Lisinopril 5 mg tablet Active 0 .ROUTE .COMPLEX 90 March 30, 2025 8:10am TAKE 1 TABLET BY MOUTH EVERY DAY Complies with drug therapy Start: 05-07-2023 End: 04-08-2024 take 1 tablet by mouth once daily Lisinopril 5 mg tablet Discontinued 5 MG PO Daily October 27, 2023 1:00am April 08, 2024 9:59am Lisinopril Not-T aking/PRN Lisinopril Not-T aking Lisinopril Activ e metFORMIN hydrochloride 1000 mg oral tablet (20 sources) Biguanide Start: 04-23-2025 take 1 tablet by mouth once daily Metformin 1,000 mg tablet Active 1000 MG PO Daily April 23, 2025 12:00am Complies with drug therapy Start: 03-28-2024 End: 04-16-2024 take 1 tablet [...] food. . 05/29/2022 08/07/2024 Discontinued (Therapy completed) OneTouch Ultra - (8 sources) OneTouch Ultra - USE 1 STRIP TO CHECK HOME BLOOD SUGAR for 25 Active potassium chloride 10 meq extended release oral tablet (5 sources) Start: 03-05-2025 Potassium Chlo ride (Klor-Con 10) 10 mEq tablet extended release Active 10 MEQ PO Daily March 05, 2025 12:00am Complies with drug therapy Start: 04-30-2023 take 1 tablet by leora th in the morning potassium chloride CR (Klor-Con) 10 MEQ ER tablet Take 10 mEq by mouth in the morning. 04/30/2023 Active Semaglutide (1 source) Start: 04-23-2025 Semaglutide (Ozempic) 0.25 mg or 0.5 mg (2 mg/3 mL) pen injector Active 0.5 MG SUBCUT every week April 23, 2025 12:00am for 4 weeks Complies with drug therapy tiZANidine 4 mg oral tablet (20 sources) Central alpha-2 Adrenergic Agonist Start: 10-27-2024 take 2 tablets by mouth once daily at bedtime Tizanidine 4 mg tablet Active 8 MG PO Daily at bedtime October 27, 2024 2:50pm Complies with drug therapy Start: 10-27-2023 End: 10-27-2024 take 1 tablet by mouth once daily at bedtime Tizanidine 4 mg tablet Discontinued 4 MG PO Daily at bedtime August 23, 2024 9:56am October 27, 2024 [...] Sig (Original) baclofen 10 mg oral tablet (16 sources) gamma-Aminobutyri c Acid-ergic Agonist Start: 10-27-2023 End: 01-27-2024 take 1 tablet by mouth twice daily Baclofen 10 mg tablet Discontinued 10 MG PO Twice daily October 27, 2023 1:00am January 27, 2024 1:15pm take 1 tablet by mouth every twe lve hours Baclofen 10 MG 1 tablet as needed Orally Twice a day Active 24 hr buPROPion hydrochloride 450 mg extended release oral tablet (20 sources) Aminoketone Start: 12-27-2024 End: 04-23-2025 take 1 tablet by mouth once daily in the morning Bupropion Hcl 450 mg tablet extended release 24 hr Discontinued 450 MG PO Every morning December 27, 2024 12:00am April 23, 2025 8:29am Start: 08-06-2024 End: 01-30-2025 take 1 tablet by mouth once daily in the morning Bupropion Hcl 300 mg tablet extended release 24 hr Active 0 .ROUTE .COMPLEX January 30, 2025 7:36am TAKE 1 TABLET BY MOUTH EVERY DAY IN THE MORNING Complies with drug therapy Start: 08-06-2024 take 1 tablet by leora [...] 24, 2024 12:00am July 05, 2024 1:19pm cabergoline 0.5 mg oral tablet (20 sources) Ergot Derivative take 1 tablet by mouth two times weekly as needed Cabergoline 0.5 MG 1 tablet Orally 2 times a week Not-Taking/PRN cefdinir 300 mg oral capsule (15 sources) Cephalosporin Antibacterial Start: 08-18-20 End: 08-28-20 [...] 27, 2024 12:00am April 16, 2024 8:34am cetirizine hydrochloride 10 mg oral tablet (20 sources) Histamine-1 Receptor Antagonist Start: 03-05-2025 End: 04-23-2025 take 1 tablet by mouth once daily Cetirizine 10 mg tablet Discontinued 10 MG PO Daily March 05, 2025 5:19pm April 23, 2025 8:29am Start: 06-23-2024 End: 03-05-2025 take 1 tablet by mouth once daily Cetirizine 10 mg tablet Discontinued 0 .ROUTE .COMPLEX June 23, 2024 12:17pm March 05, 2025 5:20pm TAKE 1 TABLET BY MOUTH EVERY DAY Start: 05-02-2023 End: 06-23-2024 take 1 tablet by mouth once daily Cetirizine 10 mg tablet Discontinued 10 MG PO Daily October 27, 2023 1:00am June 23, 2024 12:17pm dapagliflozin 5 mg oral tablet (20 sources) [...] eye(s) three times daily as needed Maxitrol 3.5-50948-3.1 2 drops into affected eye Ophthalmic Three times a day for 7 days Sep, Not-Taking/PRN Start: 09-13-2020 take 2 drop(s) into the eye(s) three times daily Maxitrol 3.5-21924-7.1 2 drops into affected eye Ophthalmic Three times a day for 7 days Sep, Not-Taking Start: 09-13-2020 take 2 drop(s) into the eye(s) three times daily Maxitrol 3.5-66996-4.1 2 drops into affected eye Ophthalmic Three [...] propionate 0.05 mg/actuat metered dose nasal spray (11 sources) Corticosteroid Start: 08-18-2024 End: 12-27-2024 take [...] e hydrOXYzine hydrochloride 50 mg oral tablet (15 sources) Antihistamine Start: 06-27-2024 End: 10-27-2024 take [...] 30 mg levoFLOXacin 750 mg oral tablet (4 sources) Quinolone Antimicrobial Start: 08-28-2024 End: 10-27-2024 take 1 tablet by mouth once daily Levofloxacin 750 mg tablet Discontinued 750 MG PO Daily 03 17August 28, 2024 1:00am October 27, 2024 2:45pm methylPREDNISolone (20 sources) Corticosteroid Start: 03-09-2015 Depo-Medrol 80 mg Feb, 80 mg Nirmatrelvir-Ritonavir (2 sources) Start: 10-27-2023 End: 12-20-2023 take 2 [...] Start: 10-27-2023 take 2 tablets by mo [facility] once, then take 1 tablet by mouth [...] potassium 99 mg extended release oral tablet (17 sources) Start: 10-27-2023 End: 03-05-2025 take 1 [...] Orally Once a day Active Potassium Active predniSONE 20 mg oral tablet (11 sources) Start: 12-27-2024 End: 04-23-2025 Prednisone 20 mg tablet Discontinued 20 MG PO As Directed December 27, 2024 12:00am April 23, 2025 8:29am 1 tab tid w/ food x 3 days, then bid w/ food x 3 days, then qd w/ food x 3 days Start: 05-26-2023 take 1 tablet by leora every twelve hours predniSONE 20 MG 1 tablet Orally bid for 5 day(s) May, Not-Taking/PRN Toradol 30 mg/ml (8 sources) Start: 05-26-2023 Toradol 30 mg/ ml May, 30 mg traMADol hydrochloride 50 mg oral tablet (3 sources) Opioid Agonist Start: 12-27-2024 End: 04-23-2025 take 1 tablet by mouth three times daily as needed for pain Tramadol 50 mg tablet Discontinued 50 MG PO Three times daily as needed for pain 31 03December 27, 2024 12:00am April 23, 2025 8:29am triamcinolone acetonide 5 mg/ml topical cream (20 [...] to other specified organisms] Episodic Anxiety disorders (7 sources) Panic attack; Translations: [Panic disorder [episodic paroxysmal anxiety]] 06-21-2024 Chronic Cardiac dysrhythmias (9 sources) Palpitations; Translations: [Palpitations] Onset: 7 04-16-2024 [...] sources) High risk drug monitoring status; Translations: [snailer (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) use of opiate analgesic] Episodic Other [...] Onset: 2 Chronic Other nervous system disorders (5 sources) Carpal tunnel syndrome of right wrist; [...] Chronic Other nutritional; endocrine; and metabolic disorders (13 sources) Obesity; Translations: [Obesity, unspecified] 01-15-2024 Chronic [...] conditions (not mental disorders or infectious disease) (11 sources) Encounter for screening mammogram for malignant [...] Translations: [Pain, unspecified] Episodic Residual codes; unclassified (5 sources) Insomnia; Translations: [Insomnia, unspecified] 06-21-2024 Episodic [...] Spondylosis; intervertebral disc disorders; other back problems (12 sources) Pain in thoracic spine; Translations: [Low back pain] Onset: 5 12-27-2024 Episodic Sprains and strains (18 sources) Sprain of ankle; Translations: [Ankle sprain] Onset: 9 Episodic Thyroid disorders (3 sources) Subclinical hypothyroidism; Translations: [Other specified hypothyroidism] [...] wo conon MR lumbar spine wo con [facility] [address] MRI Report Signed Patient: Jing Gray MR#: [id number] 1 : 1975 Acct:[id number] Age/Sex: 49 / F ADM Date: 03/12/25 Loc: [facility] Room: Type: [facility] Attending Dr: Jeny FELIZ Copies to: TRINI Rhodes Ordering Provider: TRINI Rhodes Date of Service: 03/12/25 MR/MR lumbar spine wo con: LUMBAR RADICULOPATHY,LUMBAR DISCOGENIC CHANGES MRI lumbar spine performed without contrast INDICATION: Lumbar radiculopathy COMPARISON: None FINDINGS: Examination was performed on an open magnet system with less than optimal [id number] ratio which does degrade evaluation. Lumbar vertebral [...] Mccabe M.D. 03/12/2025 10:38 AM Dictation Location: [place] [address] Transcribed By: [facility] 03/12/25 1038 Dictated By: Edgardo Mccabe MD 03/12/25 1030 Signed By: 03/12/25 1038 Normal [facility] Magnetic resonance imaging r eportOrdered By: Edgardo Mccabe on 03-12-2025 Study report [facility] [address] MRI Report Signed Patient: Jing Gray MR#: [id number] : 1975 Acct:[id number] Age/Sex: 49 / F ADM Date: 5 Loc: [facility] Room: Type: [facility] Attending Dr: Jeny FELIZ Copies to: TRINI Rhodes~ Ordering Provider: TRINI Rhodes Date of Service: 03/12/25 MR/MR lumbar spine wo con: LUMBAR RADICULOPATHY,LUMBAR DISCOGENIC CHANGES MRI lumbar spine performed without contrast INDICATION: Lumbar radiculopathy COMPARISON: None FINDINGS: Examination was performed on an open magnet system with less than optimal [id number]-[id number] ratio which does degrade evaluation. Lumbar vertebral [...] Mccabe M.D. 03/12/2025 10:38 AM Dictation Location: [place] [address] Transcribed By: [facility] 03/12/25 1038 Dictated By: Edgardo Mccabe MD 03/12/25 1030 Signed By: 03/12/25 1038 [facility] Work Phone: Laboratory - Chemistry and C hemistry - challengeon 12-17-2024 Free T4 [Mass/Vol] 0.95 ng/dL 0.76-1.46 [facility] TSH Qn 4.726 m[IU]/L High 0.358-3.740 [facility] Basophils Auto (Bld) [#/Vol] on 10-09-2024 Basophils (Bld) [#/Vol] Automated basophil count 0.0-0.1 [facility] Basophils/100 WBC Auto (Bld) on 10-09-2024 Basophils/100 WBC (Bld) Automated basophil % 0.2-2.0 [facility] Cholesterol in LDL Calc [Mas s/Vol]on 10-09-2024 Cholesterol in LDL [Mass/Vol] Cholesterol in LDL [Mass/volume] in Serum or Plasma by calculation [facility] Comment on above: <100 mg/dl [id number] 0-129 mg/dl NEAR OR ABOVE [id number] mg/dl BORDERLINE [id number] mg/dl HIGH>190 mg/dl VERY HIGH Cholesterol in VLDL Calc [Ma ss/Vol]on 10-09-2024 Cholesterol in VLDL [Mass/Vol] Cholesterol in VLDL [Mass/volume] in Serum or Plasma by calculation [facility] Eosinophils/100 WBC Auto (Bl d)on 10-09-2024 Eosinophils/100 WBC (Bld) Automated eosinophil % 0.9-7.0 [facility] Erythrocyte distribution wid th Auto (RBC) [Ratio]on 10-09-2024 Erythrocyte distribution width (RBC) [Ratio] Erythrocyte distribution width [Ratio] by Automated count 11.0-15.0 [facility] Estimated glomerular filtrat ion rate (GFR) non- Americanon 10-09-2024 GFR/1.73 sq M.predicted among non-blacks MDRD (S/P/Bld) [Vol rate/Area] Estimated glomerular filtration rate (GFR) non- >=60 mL/min/1.73 m 2 [facility] Globulin Calc (S) [Mass/Vol] on 10-09-2024 Globulin (S) [Mass/Vol] Serum globulin measurement by calculation (mass/volume) [facility] Glucose mean value [Mass/vol ume] in Blood Estimated from glycated hemoglobinon 10-09-2024 Average glucose Estimated from glycated hemoglobin (Bld) [Mass/Vol] Glucose mean value [Mass/volume] in Blood Estimated from glycated hemoglobin [facility] Hematocrit Auto (Bld) [Volum e fraction]on 10-09-2024 Hematocrit (Bld) [Volume fraction] Hematocrit [Volume Fraction] of Blood by Automated count 36.0-48.0 [facility] Hemoglobin A1c percentageon 10-09-2024 HbA1c (Bld) [Mass fraction] Hemoglobin A1c percentage High 4.5-6.2 [facility] Comment on above: ADA RECOMMENDED LIMI T 4.0 - 6.0ADA THERAPEUTIC TARGET < 7.0ACTION SUGGESTED> 7.0 Hemoglobin [Mass/volume] in Bloodon 10-09-2024 Hemoglobin (Bld) [Mass/Vol] Hemoglobin [Mass/volume] in Blood 12.0-16.0 [facility] Laboratory - Chemistry and C hemistry - challengeon 10-09-2024 Albumin [Mass/Vol] 3.9 g/dL 3.4-5.0 [facility] ALP [Catalytic activity/Vol] 98 U/L 46-116 [facility] ALT [Catalytic activity/Vol] 22 U/L 14-59 [facility] AST [Catalytic activity/Vol] 17 U/L 15-37 [facility] Bilirubin [Mass/Vol] 0.9 mg/dL 0.2-1.0 [facility] Calcium [Mass/Vol] 9.6 mg/dL 8.5-10.1 [facility] Chloride [Moles/Vol] 103 mmol/L 98-107 [facility] Cholesterol [Mass/Vol] 185 mg/dL <=200 [facility] Cholesterol in HDL [Mass/Vol] 80 mg/dL High 40-60 [facility] Comment on above: > or =60 mg/dl - LOW CARDIOVASCULAR RISK<40 mg/dl - HIGH CARDIOVASCULAR RISK CO2 [Moles/Vol] 27.6 mmol/L 21.0-32.0 [facility] Creatinine [Mass/Vol] 0.84 mg/dL 0.55-1.02 [facility] GFR/1.73 sq M.predicted MDRD (S/P/Bld) [Vol rate/Area] mL/min/{1.73_m2} >=60 mL/min/1.73 m 2 [facility] Glucose [Mass/Vol] 156 mg/dL High 74-106 [facility] Potassium [Moles/Vol] 4.3 mmol/L 3.5-5.1 [facility] Protein [Mass/Vol] 7.7 g/dL 6.4-8.2 [facility] Sodium [Moles/Vol] 140 mmol/L 136-145 [facility] Triglyceride [Mass/Vol] 68 mg/dL <=150 [facility] TSH Qn 4.409 m[IU]/L High 0.358-3.740 [facility] Urea nitrogen [Mass/Vol] 11.0 mg/dL 7.0-18.0 [facility] Urea nitrogen/Creatinin e [Mass ratio] 13.1 mg/mg [facility] Laboratory - Hematology and Cell countson 10-09-2024 Immature granulocytes/100 WBC (Bld) 0.5 % 0.0-0.5 [facility] Leukocytes [#/volume] correc kendra for nucleated erythrocytes in Blood by Automated counon 10-09-2024 WBC corrected for nucl RBC Auto (Bld) [#/Vol] Leukocytes [#/volume] corrected for nucleated erythrocytes in Blood by Automated coun 4.0-11.0 [facility] Lymphocytes Auto (Bld) [#/Vo l]on 10-09-2024 Lymphocytes (Bld) [#/Vol] Lymphocytes [#/volume] in Blood by Automated count 1.2-3.8 [facility] Lymphocytes/100 WBC Auto (Bl d)on 10-09-2024 Lymphocytes/100 WBC (Bld) Lymphocytes/100 leukocytes in Blood by Automated count 20.5-60.0 [facility] MCH Auto (RBC) [Entitic mass ]on 10-09-2024 MCH (RBC) [Entitic mass] MCH [Entitic mass] by Automated count 26.7-34.0 [facility] MCHC Auto (RBC) [Mass/Vol]on 10-09-2024 MCHC (RBC) [Mass/Vol] MCHC [Mass/volume] by Automated count 29.9-35.2 [facility] MCV Auto (RBC) [Entitic vol] on 10-09-2024 MCV (RBC) [Entitic vol] MCV [Entitic volume] by Automated count 81.0-99.0 [facility] Microalbumin [Mass/volume] i n Urineon 10-09-2024 Albumin DL <= 20 mg/L (U) [Mass/Vol] Microalbumin [Mass/volume] in Urine <=30.0 [facility] Monocytes Auto (Bld) [#/Vol] on 10-09-2024 Monocytes (Bld) [#/Vol] Automated blood monocyte count High 0.3-0.8 [facility] Monocytes/100 WBC Auto (Bld) on 10-09-2024 Monocytes/100 WBC (Bld) Automated monocyte % 1.7-12.0 [facility] Neutrophils Auto (Bld) [#/Vo l]on 10-09-2024 Neutrophils (Bld) [#/Vol] Neutrophils [#/volume] in Blood by Automated count High 1.4-6.5 [facility] Neutrophils/100 WBC Auto (Bl d)on 10-09-2024 Neutrophils/100 WBC (Bld) Automated neutrophil % 43.0-75.0 [facility] No Panel Informationon 10-09 Eosinophils # (Auto) 0.3 10 3/uL 0.0-0.7 [facility] Immature Granulocyte # (Auto) 0.05 10 3/uL High 0.00-0.03 [facility] Prolactin 37.7 ng/mL Abnormal 4.8-33.4 [facility] Comment on above: Performed at: [address] [id number] Director: Joshua Jordan PhD, Phone: [phone] Urine Random Creatinine 160.10 mg/dL 20.00-300.0 0 [facility] Platelet mean volume Auto (B ld) [Entitic vol]on 10-09-2024 Platelet mean volume (Bld) [Entitic vol] Platelet mean volume [Entitic volume] in Blood by Automated count Low 9.5-13.5 [facility] Platelets Auto (Bld) [#/Vol] on 10-09-2024 Platelets (Bld) [#/Vol] Platelets [#/volume] in Blood by Automated count 150-450 [facility] RBC Auto (Bld) [#/Vol]on RBC (Bld) [#/Vol] Erythrocytes [#/volu me] in Blood by Automated count 4.20-5.40 [facility] Serum or plasma albumin/glob ulin mass ratioon 10-09-2024 Albumin/Globulin [Mass ratio] Serum or plasma albumin/globulin mass ratio [facility] Serum or plasma anion gap de terminationon 10-09-2024 Anion gap [Moles/Vol] Serum or plasma anion gap determination [facility] Serum or plasma total choles terol/high density lipoprotein (HDL) cholesterol mass erika 10-09-2024 Cholesterol.total/ Cholesterol in HDL [Mass ratio] Serum or plasma total cholesterol/high density lipoprotein (HDL) cholesterol mass rat [facility] Comment on above: 3.3 - 4.4 LOW RISK4. 4 - 7.1 AVERAGE RISK7.1 - 11.0 MODERATE RISK>11.0 HIGH RISK Urine microalbumin/creatinin e mass ratioon 10-09-2024 Albumin/Creatinine DL <= 20 mg/L (U) [Mass ratio] Urine microalbumin/creatinine mass ratio 0.0-29.9 [facility] Comment on above: NO MICROALBUMINURIA 0-29 MG/GCLINICAL MICROALBUMINURIA 30-300 MG/GMACROALBUMINURIA >300 MG/G XR hand RT min 3V*on 023 XR hand RT min 3V* [facility] Other XR hand RT min 3V* [facility] Other XR hand RT min 3V* [address] [place] [address] [facility] [employer] Other XR hand RT min 3V* [place] [address] [facility] Other XR hand RT min 3V* XRay Report [facility] Other XR hand RT min 3V* Signed [facility] Other XR hand RT min 3V* Patient: Jing Gray MR#: [id number] [facility] Other XR hand RT min 3V* 1 [facility] Other XR hand RT min 3V* : 1975 Acct:[id number] [facility] Other XR hand RT min 3V* Age/Sex: 47 / F ADM Date: 01/11/23 [facility] Other XR hand RT min 3V* Loc: [facility] Room: Ty pe: REG CLI [facility] Other XR hand RT min 3V* Attending Dr: Angélica FELIZ [facility] Other XR hand RT min 3V* Copies to: TRINI Alvarado [facility] Other XR hand RT min 3V* Ordering Provider: TRINI [place] [facility] Other XR hand RT min 3V* Date of Service: 01/11/23 [facility] Other XR hand RT min 3V* [id number]) XR/XR hand RT min 3V*: RIGHT HAND INJURY [facility] Other XR hand RT min 3V* 3 views right hand p ketty film [facility] Other XR hand RT min 3V* COMPARISON: None [facility] Other XR hand RT min 3V* HISTORY: Fourth and fifth metacarpal injury [facility] Other XR hand RT min 3V* ACUTE FINDINGS: None [facility] Other XR hand RT min 3V* DEGENERATIVE CHANGE: Unremarkable [facility] Other XR hand RT min 3V* SOFT TISSUE FINDINGS : Unremarkable [facility] Other XR hand RT min 3V* JOINT EFFUSION: None [facility] Other XR hand RT min 3V* POSTOP CHANGES: None [facility] Other XR hand RT min 3V* BONY MINERALIZATION: Adequate [facility] Other XR hand RT min 3V* X R/XR hand RT min 3V* [facility] Other XR hand RT min 3V* IMPRESSION: No acute findings [facility] Other XR hand RT min 3V* Impression dictated by: Blake Marino M.D.01/11/2023 6:08 PM [facility] Other XR hand RT min 3V* Dictation Location: [place] [address] [facility] Other XR hand RT min 3V* Transcribed By: PWS 01/11/23 [facility] Other XR hand RT min 3V* Dictated By: Masoud Marino DO 01/11/23 [facility] Other XR hand RT min 3V* Signed By: [facility] Other XR hand RT min 3V* 01/11/[address] [place] [address] [employer] Other PROLACTINon 01-06-2023 Prolactin 34.5 ng/mL Critically high 4.8-23.3 [facility] Comment on above: Performed By: #### P ROLAC #### [facility] [address] [place], [place] [address] Dr. Dinga Thomas CBC AUTO DIFFon 01-05-2023 BASO # 0.1 103/ul Normal 0.0-0.1 [facility] Comment on above: Performed By: #### C BC ####[facility] [address] [place], [place] [address]HnDr. Digna Thomas Basophils/100 WBC (Bld) 0.8 % Normal 0.2-2.0 [facility] Comment on above: Performed By: #### C BC ####[facility] [address] [place] [id number]. Digna Thomas EO # 0.5 103/ul Normal 0.0-0.7 [facility] Comment on above: Performed By: #### C BC ####[facility] [address] [place] [address]Dr. Digna Thomas Eosinophils/100 WBC (Bld) 5.0 % Normal 0.9-7.0 [facility] Comment on above: Performed By: #### C BC ####[facility] [address] [place], [place] [address]Dr. Digna Thomas Erythrocyte distribution width (RBC) [Ratio] 13.0 % Normal 11.0-15.0 [facility] Comment on above: Performed By: #### C BC ####[facility] [address] [place], [place] [address]Dr. Digna Thomas Hematocrit (Bld) [Volume fraction] 44.6 % Normal 36.0-48.0 [facility] Comment on above: Performed By: #### C BC ####[facility] [address] [place], [place] [address]Dr. Digna Thomas Hemoglobin (Bld) [Mass/Vol] 14.4 g/dL Normal 12.0-16.0 [facility] Comment on above: Performed By: #### C BC ####[facility] [address] [place], [place] [address]Dr. Digna Thomas IG # 0.05 10e3/ul Critically high 0.00-0.03 [facility] Comment on above: Performed By: #### C BC ####[facility] [address] [place], [place] [address]Dr. Digna Thomas IG % 0.5 % Normal 0.0-0.5 [facility] Comment on above: Performed By: #### C BC ####[facility] [address] [place], [place] [address]Dr. Digna Thomas LYMPH # 2.3 103/ul Normal 1.2-3.8 [facility] Comment on above: Performed By: #### C BC ####[facility] [address] [place] [id number]. Digna Thomas Lymphocytes/100 WBC (Bld) 23.0 % Normal 20.5-60.0 [facility] Comment on above: Performed By: #### C BC ####[facility] Mfnsenrnuj[address] [place] [id number]. Anajs Thomas MANUAL DIFF REQ NO Normal [facility] Comment on above: Performed By: #### C BC ####[facility] Hopgswlnfz[address] [place] [id number]. Digna William MCH (RBC) [Entitic mass] 28.3 pg Normal 26.7-34.0 [facility] Comment on above: Performed By: #### C BC ####[facility] Xuusoilqyt[address] [place], [place] [id number]. Digna William MCHC (RBC) [Mass/Vol] 32.3 g/dL Normal 29.9-35.2 [facility] Comment on above: Performed By: #### C BC ####[facility] Luzacplsfq[address] [place], [place] [id number]. Digna William MCV (RBC) [Entitic vol] 87.8 fL Normal 81.0-99.0 [facility] Comment on above: Performed By: #### C BC ####[facility] Kvtaaqqeiy[address] [place], [place] [address]Dr. Digna William MONO # 0.8 103/ul Normal 0.3-0.8 [facility] Comment on above: Performed By: #### C BC ####[facility] Tzspfmacgb[address] [place], [place] [address]Dr. Anajs Thomas Monocytes/100 WBC (Bld) 7.9 % Normal 1.7-12.0 [facility] Comment on above: Performed By: #### C BC ####[facility] Zfwfjtpezp[address] [place], [place] [address]Dr. Digna Thomas NEUT # 6.3 103/ul Normal 1.4-6.5 [facility] Comment on above: Performed By: #### C BC ####[facility] E[address]brj[address] [place] [id number]. Digna Thomas Neutrophils/100 WBC (Bld) 62.8 % Normal 43.0-75.0 [facility] Comment on above: Performed By: #### C BC ####[facility] Mxayghnbnk53[address] [place] [phone]. Digna Thomas Platelet mean volume (Bld) [Entitic vol] 9.9 fL Normal 9.5-13.5 [facility] Comment on above: Performed By: #### C BC ####[facility] Wbjncgkpav[address] [place] [phone]. Digna Thomas PLT 223 103/ul Normal 150-450 [facility] Comment on above: Performed By: #### C BC ####[facility] [address]kruafu[address] [place] [address]Dr. Digna Thomas RBC 5.08 106/ul Normal 4.20-5.40 [facility] Comment on above: Performed By: #### C BC ####[facility] Cpktzrtgde68[address] [place] [id number]. Digna Thomas WBC 10.0 103/ul Normal 4.0-11.0 [facility] Comment on above: Performed By: #### C BC ####[facility] Tuskoivnid[address] [place] [phone]. Digna Thomas LIPID PROFILEon 01-05-2023 CHOL-HDL RATIO NORM SEE BELOW Normal [facility] Comment on above: Result Comment: 3.3 - 4.4 LOW RISK 4.4 - 7.1 AVERAGE RISK 7.1 - 11.0 MODERATE RISK >11.0 HIGH RISK Performed By: #### B MP, TSH, LIPID #### [facility] [address] [address] [address] Digna Thomas Cholesterol [Mass/Vol] 179 mg/dL Normal <=200 [facility] Comment on above: Performed By: #### B MP, TSH, LIPID #### [facility] [address] [address] [address] Digna Thomas Cholesterol in HDL [Mass/Vol] 55 mg/dL Normal 40-60 [facility] Comment on above: Performed By: #### B MP, TSH, LIPID #### [facility] [address] [address] [address] Digna Thomas Cholesterol in LDL [Mass/Vol] 103.8 mg/dL Normal [facility] Comment on above: Performed By: #### B MP, TSH, LIPID #### [facility] [address] [address] [address] Digna Thomas Cholesterol.total/ Cholesterol in HDL [Mass ratio] 3.3 {ratio} Normal [facility] Comment on above: Performed By: #### B MP, TSH, LIPID #### [facility] [address] [address] [address] Digna Thomas HDL NORMAL > or = 60 mg/dl - LO W CARDIOVASCULAR RISK <40 mg/dl - HIGH CARDIOVASCULAR RISK Normal [facility] Comment on above: Performed By: #### B MP, TSH, LIPID #### [facility] [address] [place] [address] Dr. Digna Thomas LDL CALC NORMAL SEE BELOW Normal [facility] Comment on above: Result Comment: <100 mg/dl OPTIMAL 100 - 129 mg/dl NEAR OR ABOVE OPTIMAL 130 - 159 mg/dl BORDERLINE HIGH 160 - 189 mg/dl HIGH >190 mg/dl VERY HIGH Performed By: #### B MP, TSH, LIPID #### [facility] [address] [address] [address] Digna Thomas Triglyceride [Mass/Vol] 101 mg/dL Normal <=150 [facility] Comment on above: Performed By: #### B MP, TSH, LIPID #### [facility] [address] [address] [address] Digna Thomas VLDL CALC 20.2 mg/dL Normal [facility] Comment on above: Performed By: #### B MP, TSH, LIPID #### [facility] [address] [address] [address] Digna Thomas PROF CHEM 8 (BAS METB)on Anion gap [Moles/Vol] 13.3 mmol/L Normal [facility] Comment on above: Performed By: #### B MP, TSH, LIPID #### [facility] [address] [address] [address] Digna Thomas Calcium [Mass/Vol] 9.4 mg/dL Normal 8.5-10.1 [facility] Comment on above: Performed By: #### B MP, TSH, LIPID #### [facility] [address] [address] [address] Digna Thomas Chloride [Moles/Vol] 104 mmol/L Normal 98-107 [facility] Comment on above: Performed By: #### B MP, TSH, LIPID #### [facility] [address] [place] [address] Dr. Digna Thomas CO2 [Moles/Vol] 27.1 mmol/L Normal 21.0-32.0 [facility] Comment on above: Performed By: #### B MP, TSH, LIPID #### [facility] [address] [place] [address] Dr. Digna Thomas Creatinine [Mass/Vol] 0.71 mg/dL Normal 0.55-1.02 [facility] Comment on above: Performed By: #### B MP, TSH, LIPID #### [facility] [address] [place] [address] Dr. Digna Thomas EGFR-AF KAZAKH >60 Normal >=60 [facility] Comment on above: Performed By: #### B MP, TSH, LIPID #### [facility] [address] [place] [address] Dr. Digna Thomas EGFR-NON AF KAZAKH >60 Normal >=60 [facility] Comment on above: Performed By: #### B MP, TSH, LIPID #### [facility] [address] [place] [address] Dr. Digna Thomas Glucose [Mass/Vol] 163 mg/dL Critically high 74-[address] [facility] Comment on above: Performed By: #### B MP, TSH, LIPID #### [facility] [address] [place] [address] Dr. Digna Thomas Potassium [Moles/Vol] 4.4 mmol/L Normal 3.5-5.1 [facility] Comment on above: Performed By: #### B MP, TSH, LIPID #### [facility] [address] [address] [address] Digna Thomas Sodium [Moles/Vol] 140 mmol/L Normal 136-145 [facility] Comment on above: Performed By: #### B MP, TSH, LIPID #### [facility] [address] [address] [address] Digna Thomas Urea nitrogen [Mass/Vol] 15.0 mg/dL Normal 7.0-18.0 [facility] Comment on above: Performed By: #### B MP, TSH, LIPID #### [facility] [address] [place] [address] Dr. Digna Thomas Urea nitrogen/Creatinin e [Mass ratio] 21.1 mg/mg Normal [facility] Comment on above: Performed By: #### B MP, TSH, LIPID #### [facility] [address] [place] [address] Dr. Digna Thomas TSHon 01-05-2023 TSH 3.955 uIU/mL Critically high 0.358-3.740 [facility] Comment on above: Performed By: #### B MP, TSH, LIPID #### [facility] [address] [place] [address] Dr. Digna Thomas XR CSPINE MIN 4 [...] by: FELIPE TRINH Date: 2022-11-04 08:02 Normal [facility] GLYCOHEMOGLOBIN A1Con 2022 ADA RECOMMENDATION SEE BELOW Normal [facility] Comment on above: Result Comment: ADA RECOMMENDED LIMIT 4.0 - 6.0 ADA THERAPEUTIC TARGET < 7.0 ACTION SUGGESTED > 7.0 Performed By: #### A 1C ####[facility] [address]owf[address] [place] [address]Dr. Digna Thomas Glucose [Mass/Vol] 166 mg/dL Normal [facility] Comment on above: Performed By: #### A 1C ####[facility] [address]ualo[address] [place] [address]DrNile Thomas HbA1c (Bld) [Mass fraction] 7.4 % Critically high 4.5-6.2 [facility] Comment on above: Performed By: #### A 1C ####[facility] [address]ab[address] [place] [address]DrNile Thomas PROLACTINon 07-12-2022 Prolactin 48.0 ng/mL Critically high 4.8-23.3 [facility] Comment on above: Performed By: #### P ROLAC #### [facility] [address] [address] [address] Digna Thomas CBC AUTO DIFFon 07-11-2022 BASO # 0.1 103/ul Normal 0.0-0.1 [facility] Comment on above: Performed By: #### C BC ####[facility] [address] [place], [place] [address]DrNile Thomas Basophils/100 WBC (Bld) 0.8 % Normal 0.2-2.0 [facility] Comment on above: Performed By: #### C BC ####[facility] [address] [place], [place] [address]DrNile Thomas EO # 0.7 103/ul Normal 0.0-0.7 [facility] Comment on above: Performed By: #### C BC ####[facility] [address]ce[address] [place] [address]DrNile Thomas Eosinophils/100 WBC (Bld) 5.8 % Normal 0.9-7.0 [facility] Comment on above: Performed By: #### C BC ####[facility] [address]iex[address]fr[address] [place], [place] [address]DrNile Thomas Erythrocyte distribution width (RBC) [Ratio] 12.7 % Normal 11.0-15.0 [facility] Comment on above: Performed By: #### C BC ####[facility] G[address]jvnaski[address] [place] [address]DrNile Thomas Hematocrit (Bld) [Volume fraction] 45.4 % Normal 36.0-48.0 [facility] Comment on above: Performed By: #### C BC ####[facility] Vqvpwsrncg4[address] [place] [address]DrNile Thomas Hemoglobin (Bld) [Mass/Vol] 15.3 g/dL Normal 12.0-16.0 [facility] Comment on above: Performed By: #### C BC ####[facility] [address] [place], [place] [address]DrNile Thomas IG # 0.04 10e3/ul Critically high 0.00-0.03 [facility] Comment on above: Performed By: #### C BC ####[facility] [address] [place], [place] [address]DrNile Thomas IG % 0.3 % Normal 0.0-0.5 [facility] Comment on above: Performed By: #### C BC ####[facility] [address]clsykb[address] [place], [place] [address]DrNile Thomas LYMPH # 3.3 103/ul Normal 1.2-3.8 [facility] Comment on above: Performed By: #### C BC ####[facility] [address]rcuqsiw[address] [place], [place] [address]DrNile Thomas Lymphocytes/100 WBC (Bld) 28.1 % Normal 20.5-60.0 [facility] Comment on above: Performed By: #### C BC ####[facility] [address]cw[address] [place], [place] [address]DrNile Thomas MANUAL DIFF REQ NO Normal [facility] Comment on above: Performed By: #### C BC ####[facility] Hamvndbqwp4[address] [place] [address]DrNile Thomas MCH (RBC) [Entitic mass] 29.2 pg Normal 26.7-34.0 [facility] Comment on above: Performed By: #### C BC ####[facility] Jtxzbnwoye4[address] [place] [address]DrNile Thomas MCHC (RBC) [Mass/Vol] 33.7 g/dL Normal 29.9-35.2 [facility] Comment on above: Performed By: #### C BC ####[facility] Oxseqnehje12[address] [place] [address]DrNile Thomas MCV (RBC) [Entitic vol] 86.6 fL Normal 81.0-99.0 [facility] Comment on above: Performed By: #### C BC ####[facility] [address]hr[address]wkske[address] [place], [place] [address]DrNile Thomas MONO # 0.8 103/ul Normal 0.3-0.8 [facility] Comment on above: Performed By: #### C BC ####[facility] Ougfccgtce[address] [place], [place] [address]DrNile Thomas Monocytes/100 WBC (Bld) 6.4 % Normal 1.7-12.0 [facility] Comment on above: Performed By: #### C BC ####[facility] Trfsehhq[address] [place], [place] [address]DrNile Thomas NEUT # 6.9 103/ul Critically high 1.4-6.5 [facility] Comment on above: Performed By: #### C BC ####[facility] [address]vo[address]otrf[address] [place], [place] [address]DrNile Thomas Neutrophils/100 WBC (Bld) 58.6 % Normal 43.0-75.0 [facility] Comment on above: Performed By: #### C BC ####[facility] Trmjxl[address]rj[address] [place], [place] [address]DrNile Thomas Platelet mean volume (Bld) [Entitic vol] 10.0 fL Normal 9.5-13.5 [facility] Comment on above: Performed By: #### C BC ####[facility] [address]bi[address] [place], [place] [address]DrNile Thomas PLT 242 103/ul Normal 150-450 [facility] Comment on above: Performed By: #### C BC ####[facility] R[address]hgsrm[address] [place] [id number]. Digna Thomas RBC 5.24 106/ul Normal 4.20-5.40 [facility] Comment on above: Performed By: #### C BC ####[facility] Trhwtrebqq34[address] [place] [id number]. Digna Thomas WBC 11.8 103/ul Critically high 4.0-11.0 [facility] Comment on above: Performed By: #### C BC ####[facility] Wwjamzoujo[address] [place] [id number]. Digna Thomas GLYCOHEMOGLOBIN A1Con 2021 ADA RECOMMENDATION SEE BELOW Normal [facility] Comment on above: Result Comment: ADA RECOMMENDED LIMIT 4.0 - 6.0 ADA THERAPEUTIC TARGET < 7.0 ACTION SUGGESTED > 7.0 Performed By: #### A 1C ####[facility] [address]xs[address] [place], [place] [address]Dr. Digna Thomas Glucose [Mass/Vol] 183 mg/dL Normal [facility] Comment on above: Performed By: #### A 1C ####[facility] M[address]rrbeorm[address] [place] [phone]. Digna Thomas HbA1c (Bld) [Mass fraction] 8.0 % Critically high 4.5-6.2 [facility] Comment on above: Performed By: #### A 1C ####[facility] Qswztfywfj16[address] [place] [phone]. Digna Thomas LIPID PROFILEon 07-11-2022 CHOL-HDL RATIO NORM SEE BELOW Normal [facility] Comment on above: Result Comment: 3.3 - 4.4 LOW RISK 4.4 - 7.1 AVERAGE RISK 7.1 - 11.0 MODERATE RISK >11.0 HIGH RISK Performed By: #### B MP, LIPID, TSH ####[facility] [address]axij[address] [place] [phone]. Digna Thomas Cholesterol [Mass/Vol] 161 mg/dL Normal <=200 [facility] Comment on above: Performed By: #### B MP, LIPID, TSH ####[facility] [address]dpguqm[address] [place] [phone]. Digna Thomas Cholesterol in HDL [Mass/Vol] 51 mg/dL Normal 40-60 [facility] Comment on above: Performed By: #### B MP, LIPID, TSH ####[facility] Aedadpauei[address] [place] [phone]. Digna Thomas Cholesterol in LDL [Mass/Vol] 86.2 mg/dL Normal [facility] Comment on above: Performed By: #### B MP, LIPID, TSH ####[facility] [address]izkwcs[address] [place] [address]Dr. Anajs William Cholesterol.total/ Cholesterol in HDL [Mass ratio] 3.2 {ratio} Normal [facility] Comment on above: Performed By: #### B MP, LIPID, TSH ####[facility] J[address]wgxccpov[address] [place] [address]Dr. Digna Thomas HDL NORMAL > or = 60 mg/dl - LO W CARDIOVASCULAR RISK <40 mg/dl - HIGH CARDIOVASCULAR RISK Normal [facility] Comment on above: Performed By: #### B MP, LIPID, TSH ####[facility] [address]qmy[address] [place] [phone]. Digna Thomas LDL CALC NORMAL SEE BELOW Normal [facility] Comment on above: Result Comment: <100 mg/dl OPTIMAL 100 - 129 mg/dl NEAR OR ABOVE OPTIMAL 130 - 159 mg/dl BORDERLINE HIGH 160 - 189 mg/dl HIGH >190 mg/dl VERY HIGH Performed By: #### B MP, LIPID, TSH ####[facility] [address]ctsbe[address] [place] [phone]. Digna Thomas Triglyceride [Mass/Vol] 119 mg/dL Normal <=150 [facility] Comment on above: Performed By: #### B MP, LIPID, TSH ####[facility] Pbclchjhta22[address] [place] [phone]. Digna Thomas VLDL CALC 23.8 mg/dL Normal [facility] Comment on above: Performed By: #### B MP, LIPID, TSH ####[facility] [address]kl[address]wigdj75[address] [place], [place] [address]Dr. Digna Thomas MG MAMM SCREEN 3D JANE CADon 07-11-2022 MG MAMM SCREEN 3D JANE CAD Patient: JING GRAY Exam Date: 07/11/2022 : 1975 Gender:F Ordering : DR KELECHI GALVAN D.O. Admission #: [id number] Family : Order #: [id number] CLICK HERE TO VIEW EXAM RADIOLOGY REPORT [...] bladder cancer at age 51. LOCATION: [facility] BREAST COMPOSITION: Scattered areas fibroglandular density. [...] MD on 07/11/2022 at 10:14 Normal [facility] MICROALBUMIN, RAND URon 10-3 mALB 10.1 mg/L Normal <=30.0 [facility] Comment on above: Performed By: #### M ALBR #### [facility] [address] [place], [place] [address] Dr. Digna Thomas PROF CHEM 8 (BAS METB)on Anion gap [Moles/Vol] 10.6 mmol/L Normal [facility] Comment on above: Performed By: #### B MP, LIPID, TSH ####[facility] [address]ggskegvka[address] [place] [address]Dr. Digna Thomas Calcium [Mass/Vol] 9.3 mg/dL Normal 8.5-10.1 [facility] Comment on above: Performed By: #### B MP, LIPID, TSH ####[facility] Sw[address]cpqeun[address] [place] [address]Dr. Digna Thomas Chloride [Moles/Vol] 99 mmol/L Normal 98-107 [facility] Comment on above: Performed By: #### B MP, LIPID, TSH ####[facility] [address]zq[address] [place], [place] [address]Dr. Digna Thomas CO2 [Moles/Vol] 28.3 mmol/L Normal 21.0-32.0 [facility] Comment on above: Performed By: #### B MP, LIPID, TSH ####[facility] [address]wq[address]iznr[address] [place], [place] [address]Dr. Digna Thomas Creatinine [Mass/Vol] 0.74 mg/dL Normal 0.55-1.02 [facility] Comment on above: Performed By: #### B MP, LIPID, TSH ####[facility] [address]fxxvrs[address] [place], [place] [address]Dr. Digna Thomas EGFR-AF KAZAKH >60 Normal >=60 [facility] Comment on above: Performed By: #### B MP, LIPID, TSH ####[facility] [address]wr[address] [place], [place] [address]Dr. Digna Thomas EGFR-NON AF KAZAKH >60 Normal >=60 [facility] Comment on above: Performed By: #### B MP, LIPID, TSH ####[facility] [address]xdlo[address] [place], [place] [address]Dr. Digna Thomas Glucose [Mass/Vol] 190 mg/dL Critically high 74-[address] [facility] Comment on above: Performed By: #### B MP, LIPID, TSH ####[facility] I[address]wkuoxayl[address] [place], [place] [address]Dr. Digna Thomas Potassium [Moles/Vol] 3.9 mmol/L Normal 3.5-5.1 [facility] Comment on above: Performed By: #### B MP, LIPID, TSH ####[facility] [address]hexuntw[address] [place] [address]Dr. Digna Thomas Sodium [Moles/Vol] 134 mmol/L Critically low 136-145 [facility] Comment on above: Performed By: #### B MP, LIPID, TSH ####[facility] J[address]xsuachw[address] [place] [address]Dr. Digna Thomas Urea nitrogen [Mass/Vol] 13.0 mg/dL Normal 7.0-18.0 [facility] Comment on above: Performed By: #### B MP, LIPID, TSH ####[facility] [address]yxvbpy[address] [place] [address]Dr. Digna Thomas Urea nitrogen/Creatinin e [Mass ratio] 17.6 mg/mg Normal [facility] Comment on above: Performed By: #### B MP, LIPID, TSH ####[facility] [address]ufwj[address] [place] [address]Dr. Digna Thomas TSHon 07-11-2022 TSH 4.084 uIU/mL Critically high 0.358-3.740 [facility] Comment on above: Performed By: #### B MP, LIPID, TSH #### [facility] [address] [place], [place] [address] Dr. Digna Thomas Vital Signs Date Time Vital Sign Value Performing Clinician Facility 04-23-2025 08:28040 Body height 165.1 cm [employer] DO Work Phone: [facility] 04-23-2025 08:040 Body mass index (BMI) [Ratio] 50.3 kg/m2 [employer] DO Work Phone: [facility] 04-23-2025 08:28040 Body weight 137.21 kg [employer] DO Work Phone: [facility] 04-23-2025 08:28-040 Diastolic blood pressure 86 mm[Hg] [employer] DO Work Phone: [facility] 04-23-2025 08:28-0400 Heart rate 65 /min Kelechi Ball DO Work Phone: [facility] 04-23-2025 08:28-0400 Respiratory rate 12 /min Kelechi Ball DO Work Phone: [facility] 04-23-2025 08:28-0400 SaO2% (BldA) [Mass fraction] 97 % Kelechi Ball DO Work Phone: [facility] 04-23-2025 08:28-0400 Systolic blood pressure 140 mm[Hg] Kelechi Ball DO Work Phone: [facility] 12-27-2024 08:36-0400 Body height 165.1 cm [facility] 12-27-2024 08:36-0400 Body mass index (BMI) [Ratio] 50.4 kg/m2 [facility] 12-27-2024 08:36-0400 Body weight 137.43 kg [facility] 12-27-2024 08:36-0400 Diastolic blood pressure 82 mm[Hg] [facility] 12-27-2024 08:36-0400 Heart rate 66 /min [facility] 12-27-2024 08:36-0400 Respiratory rate 12 /min [facility] 12-27-2024 08:36-0400 SaO2% (BldA) [Mass fraction] 98 % [facility] 12-27-2024 08:36-0400 Systolic blood pressure 130 mm[Hg] [facility] 10-27-2024 13:58-0500 Body height 165.1 cm [facility] 10-27-2024 13:58-0500 Body mass index (BMI) [Ratio] 49.4 kg/m2 [facility] 10-27-2024 13:58-0500 Body weight 134.71 kg [facility] 10-27-2024 13:58-0500 Diastolic blood pressure 79 mm[Hg] [facility] 10-27-2024 13:58-0500 Heart rate 83 /min [facility] 10-27-2024 13:58-0500 Respiratory rate 18 /min [facility] 10-27-2024 13:58-0500 SaO2% (BldA) [Mass fraction] 99 % [facility] 10-27-2024 13:58-0500 Systolic blood pressure 125 mm[Hg] [facility] 08-23-2024 08:40-0500 Body height 165.1 cm [facility] 08-23-2024 08:40-0500 Body mass index (BMI) [Ratio] 46 kg/m2 [facility] 08-23-2024 08:40-0500 Body weight 125.36 kg [facility] 08-23-2024 08:40-0500 Diastolic blood pressure 79 mm[Hg] [facility] 08-23-2024 08:40-0500 Heart rate 66 /min [facility] 08-23-2024 08:40-0500 Respiratory rate 16 /min [facility] 08-23-2024 08:40-0500 Systolic blood pressure 127 mm[Hg] [facility] 08-18-2024 12:29-0500 Body height 165.1 cm [facility] 08-18-2024 12:29-0500 Body mass index (BMI) [Ratio] 48.4 kg/m2 [facility] 08-18-2024 12:29-0500 Body temperature 98.8 [degF] [facility] 08-18-2024 12:29-0500 Body weight 132 kg [facility] 08-18-2024 12:29-0500 Diastolic blood pressure 73 mm[Hg] [facility] 08-18-2024 12:29-0500 Heart rate 76 /min [facility] 08-18-2024 12:29-0500 Respiratory rate 17 /min [facility] 08-18-2024 12:29-0500 SaO2% (BldA) [Mass fraction] 97 % [facility] 08-18-2024 12:29-0500 Systolic blood pressure 125 mm[Hg] [facility] 08-07-2024 13:26-0500 Body height 165.1 cm Antione Sugey DO Work Phone: [facility] 08-07-2024 13:26-0500 Body mass index (BMI) [Ratio] 45.43 kg/m2 Antione Sugey DO Work Phone: [facility] 08-07-2024 13:26-0500 Body weight 123.83 kg Antione Sugey DO Work Phone: [facility] 08-07-2024 13:26-0500 Diastolic blood pressure 74 mm[Hg] Antione Sugey DO Work Phone: [facility] 08-07-2024 13:26-0500 Heart rate 70 /min Antione Sugey DO Work Phone: [facility] 08-07-2024 13:26-0500 SaO2% (BldA) [Mass fraction] 97 % Antione Sugey DO Work Phone: [facility] 08-07-2024 13:26-0500 Systolic blood pressure 118 mm[Hg] Antione Sugey DO Work Phone: [facility] 07-22-2024 10:35-0500 Body height 165.1 cm [facility] 07-22-2024 10:35-0500 Body mass index (BMI) [Ratio] 44.1 kg/m2 [facility] 07-22-2024 10:35-0500 Body weight 120.25 kg [facility] 07-22-2024 10:35-0500 Diastolic blood pressure 95 mm[Hg] [facility] 07-22-2024 10:35-0500 Heart rate 74 /min [facility] 07-22-2024 10:35-0500 Respiratory rate 16 /min [facility] 07-22-2024 10:35-0500 Systolic blood pressure 164 mm[Hg] [facility] 06-21-2024 11:44-0400 Body height 165.1 cm The [facility] 06-21-2024 11:44-0400 Body mass index (BMI) [Ratio] 42.3 kg/m2 [facility] 06-21-2024 11:44-0400 Body weight 115.26 kg [facility] 06-21-2024 11:44-0400 Diastolic blood pressure 78 mm[Hg] [facility] 06-21-2024 11:44-0400 Heart rate 71 /min [facility] 06-21-2024 11:44-0400 Respiratory rate 12 /min [facility] 06-21-2024 11:44-0400 Systolic blood pressure 129 mm[Hg] [facility] 04-16-2024 08:34-0400 Body height 165.1 cm [facility] 04-16-2024 08:34-0400 Body mass index (BMI) [Ratio] 40.3 kg/m2 [facility] 04-16-2024 08:34-0400 Body weight 109.99 kg [facility] 04-16-2024 08:34-0400 Diastolic blood pressure 81 mm[Hg] [facility] 04-16-2024 08:34-0400 Heart rate 71 /min [facility] 04-16-2024 08:34-0400 Respiratory rate 12 /min [facility] 04-16-2024 08:34-0400 Systolic blood pressure 117 mm[Hg] [facility] 01-27-2024 13:11-0400 Body height 165.1 cm [facility] 01-27-2024 13:11-0400 Body mass index (BMI) [Ratio] 42.9 kg/m2 [facility] 01-27-2024 13:11-0400 Body temperature 97.1 [degF] [facility] 01-27-2024 13:11-0400 Body weight 117.02 kg [facility] 01-27-2024 13:11-0400 Heart rate 64 /min [facility] 01-27-2024 13:11-0400 Respiratory rate 16 /min [facility] 01-27-2024 13:11-0400 SaO2% (BldA) [Mass fraction] 97 % [facility] 01-15-2024 08:41-0400 Body height 165.1 cm [facility] 01-15-2024 08:41-0400 Body mass index (BMI) [Ratio] 43 kg/m2 [facility] 01-15-2024 08:41-0400 Body weight 117.25 kg [facility] 01-15-2024 08:41-0400 Diastolic blood pressure 79 mm[Hg] [facility] 01-15-2024 08:41-0400 Heart rate 76 /min [facility] 01-15-2024 08:41-0400 Respiratory rate 12 /min [facility] 01-15-2024 08:41-0400 Systolic blood pressure 127 mm[Hg] [facility] 11-20-2023 12:57-0400 Body height 165.1 cm [facility] 11-20-2023 12:57-0400 Body mass index (BMI) [Ratio] 46.3 kg/m2 [facility] 11-20-2023 12:57-0400 Body weight 126.26 kg [facility] 11-20-2023 12:57-0400 Diastolic blood pressure 70 mm[Hg] [facility] 11-20-2023 12:57-0400 Systolic blood pressure 122 mm[Hg] [facility] 10-17-2023 09:00-0500 Body height 165.1 cm Kelechi Ball Other [facility] [employer] Other 10-17-2023 09:00-0500 Body mass index (BMI) [Ratio] 48.49 kg/m2 Kelechi Ball Other [facility] [employer] Other 10-17-2023 09:00-0500 Body weight 132.18 kg Kelechi Ball Other [facility] [employer] Other 10-17-2023 09:00-0500 Diastolic blood pressure 88 mm[Hg] Kelechi Ball Other [facility] [employer] Other 10-17-2023 09:00-0500 Respiratory rate 12 /min Kelechi Ball Other [facility] [employer] Other 10-17-2023 09:00-0500 Systolic blood pressure 138 mm[Hg] Kelechi Ball Other [facility] [employer] Other 09-22-2023 09:00-0500 Body height 165.1 cm Kelechi Ball Other [facility] 09-22-2023 09:00-0500 Body mass index (BMI) [Ratio] 50.25 kg/m2 Kelechi Ball Other [facility] [employer] Other 09-22-2023 09:00-0500 Body weight 136.99 kg Kelechi Ball Other [facility] [employer] Other 09-22-2023 09:00-0500 Body weight 136.98 kg [facility] 09-22-2023 09:00-0500 Diastolic blood pressure 85 mm[Hg] Kelechi Ball Other [facility] 09-22-2023 09:00-0500 Respiratory rate 12 /min Kelechi Ball Other [facility] [employer] Other 09-22-2023 09:00-0500 Systolic blood pressure 136 mm[Hg] Kelechi Ball Other [facility] 08-22-2023 08:30-0500 Body height 165.1 cm Kelechi Ball Other [facility] 08-22-2023 08:30-0500 Body mass index (BMI) [Ratio] 52.95 kg/m2 Kelechi Ball Other [facility] [employer] Other 08-22-2023 08:30-0500 Body weight 144.34 kg Kelechi Ball Other [facility] [employer] Other 08-22-2023 08:30-0500 Body weight 144.33 kg [facility] 12-12-2023 08:30-0500 Diastolic blood pressure 75 mm[Hg] Kelechi Ball Other [facility] 08-22-2023 08:30-0500 Respiratory rate 12 /min Kelechi Ball Other [employer] Other 08-22-2023 08:30-0500 Systolic blood pressure 115 mm[Hg] Kelechi Ball Other [facility] 05-26-2023 09:40-0400 Body height 165.1 cm Angélica Hue Other [facility] Other 05-26-2023 09:40-0400 Body mass index (BMI) [Ratio] 51.88 kg/m2 Angélica Hue Other [facility] Other 05-26-2023 09:40-0400 Body temperature 98 [degF] Angélica Hue Other [facility] Other 05-26-2023 09:40-0400 Body weight 141.43 kg Angélica Hue Other [facility] Other 05-26-2023 09:40-0400 Diastolic blood pressure 68 mm[Hg] Angélica Hue Other [facility] Other 05-26-2023 09:40-0400 Respiratory rate 18 /min Angélica Hue Other [employer] Other 05-26-2023 09:40-0400 SaO2% (BldA) [Mass fraction] 96 % Angélica Hue Other [facility] Other 05-26-2023 09:40-0400 Systolic blood pressure 110 mm[Hg] Angélica Hue Other [facility] Other 02-28-2023 13:15-0400 Body height 165.1 cm Kelechi Ball Other [employer] Other 02-28-2023 13:15-0400 Body mass index (BMI) [Ratio] 52.55 kg/m2 Kelechi Ball Other [employer] Other 02-28-2023 13:15-0400 Body weight 143.25 kg Kelechi Ball Other [facility] Other 02-28-2023 13:15-0400 Diastolic blood pressure 77 mm[Hg] Kelechi Ball Other [employer] Other 02-28-2023 13:15-0400 Respiratory rate 12 /min Kelechi Ball Other [employer] Other 02-28-2023 13:15-0400 Systolic blood pressure 118 mm[Hg] Kelechi Ball Other [employer] Other 01-16-2023 12:30-0400 Body height 165.1 cm Kelechi Ball Other [facility] Other 01-16-2023 12:30-0400 Body mass index (BMI) [Ratio] 52.28 kg/m2 Kelechi Ball Other [facility] Other 01-16-2023 12:30-0400 Body weight 142.52 kg Kelechi Ball Other [facility] Other 01-16-2023 12:30-0400 Diastolic blood pressure 72 mm[Hg] Kelechi Ball Other [employer] Other 01-16-2023 12:30-0400 Respiratory rate 16 /min Kelechi Ball Other [employer] Other 01-16-2023 12:30-0400 Systolic blood pressure 147 mm[Hg] Kelechi Ball Other [employer] Other 01-11-2023 18:10-0400 Body height 165.1 cm Angélica Hue Other [facility] Other 01-11-2023 18:10-0400 Body mass index (BMI) [Ratio] 52.41 kg/m2 Angélica Hue Other [facility] Other 01-11-2023 18:10-0400 Body temperature 99.6 [degF] Angélica Hue Other [facility] Other 01-11-2023 18:10-0400 Body weight 142.88 kg Angélica Hue Other [employer] Other 01-11-2023 18:10-0400 Diastolic blood pressure 64 mm[Hg] Angélica Hue Other [facility] Other 01-11-2023 18:10-0400 Respiratory rate 20 /min Angélica Hue Other [employer] Other 01-11-2023 18:10-0400 SaO2% (BldA) [Mass fraction] 96 % Angélica Hue Other [facility] Other 01-11-2023 18:10-0400 Systolic blood pressure 117 mm[Hg] Angélica Hue Other [facility] Other 10-18-2022 12:00-0500 Body height 165.1 cm Kelechi Ball Other [facility] Other 10-18-2022 12:00-0500 Body mass index (BMI) [Ratio] 52.31 kg/m2 Kelechi Galvan Other [facility] Other 10-18-2022 12:00-0500 Body weight 142.61 kg Kelechi Galvan Other [facility] Other 10-18-2022 12:00-0500 Diastolic blood pressure 84 mm[Hg] Kelechi Galvan Other [facility] Other 10-18-2022 12:00-0500 Respiratory rate 12 /min Kelechi Galvan Other [facility] Other 10-18-2022 12:00-0500 Systolic blood pressure 122 mm[Hg] Kelechi Galvan Other [facility] Other Encounters Encounter Date Encounter Type Care Provider Facility Start: 04-23-2025 End: 04-23-2025 ambulatory Kelechi Galvan DO Work Phone: [facility] Work Phone: Start: 04-23-2025 End: 04-23-2025 Patient encounter procedure Kelechi Galvan DO -[facility] Work Phone: Start: 04-14-2025 End: 04-14-2025 ambulatory Joe Becerra MD Facility:[facility] Start: 03-12-2025 End: 03-12-2025 Patient encounter procedure Jeny Manley FITNESS TRAINER-C -[facility] [address] [facility] Work Phone: Start: 03-12-2025 End: 03-12-2025 ambulatory Kelechi Galvan DO Work Phone: [facility] Work Phone: Start: 12-27-2024 End: 12-27-2024 ambulatory [facility] Work Phone: Start: 12-27-2024 End: 12-27-2024 Patient encounter procedure [facility] Physician [facility] Work Phone: Start: 12-17-2024 Non-patient / Non-visit [facility] Physician [facility] Work Phone: Start: 10-27-2024 End: 10-27-2024 ambulatory [facility] Work Phone: Start: 10-27-2024 End: 10-27-2024 Patient encounter procedure [facility] Physician [facility] Work Phone: Start: 10-09-2024 Non-patient / Non-visit [facility] Physician [facility] Work Phone: Start: 08-29-2024 Non-patient / Non-visit [facility] Physician [facility] Work Phone: Start: 08-23-2024 End: 08-23-2024 Encounter for general adult medical examination without abnormal findings [facility] Start: 08-23-2024 End: 08-23-2024 Patient encounter procedure [facility] Physician [facility] Work Phone: Start: 08-21-2024 Patient encounter status [facility] Start: 08-18-2024 End: 08-18-2024 Patient encounter procedure [facility] Physician [facility] Work Phone: Start: 08-07-2024 End: 08-07-2024 Bamboo flowsheet Antione Sugey DO Work Phone: [employer] [address] Start: 08-07-2024 End: 08-07-2024 Bamboo flowsheet Antione Sugey DO Work Phone: [employer] [address] Start: 08-07-2024 End: 08-07-2024 Office outpatient visit 25 minutes Antione Madera DO Work Phone: [facility] Comment on above: REBA (obstructive sle ep apnea) (Primary Dx); Hypoxia; Hypersomnia; Obesity due to excess calories, unspecified class, unspecified whether serious comorbidity present; Snoring Start: 08-07-2024 End: 08-07-2024 ambulatory ANTIONE MADERA Not Available Start: 07-22-2024 End: 07-22-2024 ambulatory [facility] Work Phone: Start: 07-22-2024 End: 07-22-2024 Patient encounter procedure [facility] Physician [facility] Work Phone: Start: 06-21-2024 End: 06-21-2024 ambulatory [facility] Work Phone: Start: 06-21-2024 End: 06-21-2024 Patient encounter procedure [facility] Physician [facility] Work Phone: Start: 04-16-2024 End: 04-16-2024 ambulatory [facility] Work Phone: Start: 04-16-2024 End: 04-16-2024 Patient encounter procedure [facility] Physician [facility] Work Phone: Start: 01-27-2024 End: 01-27-2024 ambulatory [facility] Work Phone: Start: 01-27-2024 End: 01-27-2024 Patient encounter procedure [facility] Work Phone: Start: 01-15-2024 End: 01-15-2024 ambulatory [facility] Work Phone: Start: 01-15-2024 End: 01-15-2024 Patient encounter procedure [facility] Physician [facility] Work Phone: Start: 11-20-2023 Non-patient / Non-visit [facility] Physician [facility] Work Phone: Start: 10-27-2023 End: 10-27-2023 ambulatory [facility] Work Phone: Start: 10-27-2023 End: 10-27-2023 Patient encounter procedure [facility] Physician Group-[facility] Work Phone: Start: 10-20-2023 End: 10-20-2023 ambulatory Kelechi Cole Other [facility] Other Start: 10-20-2023 Encounter by alysha lizarraga Kelechi Galvan [facility] Start: 10-17-2023 End: 10-17-2023 ambulatory Kelechi Ball Other [facility] Other Start: 10-17-2023 Office outpatient vi sit 15 minutes Kelechi Ball [facility] Start: 09-22-2023 End: 09-22-2023 ambulatory Kelechi Ball Other [facility] Other Start: 09-22-2023 Office outpatient vi sit 15 minutes Kelechi Ball [facility] Start: 09-22-2023 End: 09-22-2023 Patient encounter procedure [facility] Physician [facility] Work Phone: Start: 09-08-2023 End: 09-08-2023 ambulatory Kelechi Cole Other [facility] Other Start: 09-08-2023 Telephone encounter Kelechi Ball [facility] Start: 08-28-2023 End: 08-28-2023 ambulatory Kelechi Cole Other [facility] Other Start: 08-28-2023 Telephone encounter Kelechi Ball [facility] Start: 08-26-2023 End: 08-26-2023 ambulatory Kelechi Ball Other [facility] Other Start: 08-26-2023 Telephone encounter Kelechi Ball [facility] Start: 08-22-2023 End: 08-22-2023 ambulatory Kelechi Ball Other [facility] Other Start: 08-22-2023 Encounter for genera l adult medical examination without abnormal findings Kelechi Ball [facility] Start: 08-22-2023 Periodic preventive med est patient 40-64yrs Kelechi Galvan [facility] Start: 08-22-2023 End: 08-22-2023 Patient encounter procedure [facility] Work Phone: Start: 05-26-2023 End: 05-26-2023 ambulatory Angélica Swann Other [facility] Other Start: 05-26-2023 Office outpatient vi sit 15 minutes Angélicaelvia Swann [facility] Start: 04-18-2023 End: 04-18-2023 ambulatory Kelechi Galvan Other [facility] Other Start: 04-18-2023 Office outpatient vi sit 15 minutes Kelechi Galvan [facility] Start: 02-28-2023 End: 02-28-2023 ambulatory Kelechi Galvan Other [facility] Other Start: 02-28-2023 Office outpatient vi sit 15 minutes Kelechi Galvan [facility] Start: 01-19-2023 End: 01-19-2023 ambulatory Kelechi Galvan Other [facility] Other Start: 01-19-2023 Telephone encounter Kelechi Galvan [facility] Start: 01-16-2023 End: 01-16-2023 ambulatory Kelechi Galvan Other [facility] Other Start: 01-16-2023 Office outpatient vi sit 25 minutes Kelechi Galvan [facility] Start: 01-11-2023 End: 01-11-2023 Patient encounter procedure FITNESS TRAINER-C Angélica Swann Work Phone: [facility] Work Phone: Start: 01-11-2023 End: 01-11-2023 ambulatory FITNESS TRAINER-C Angélica Swann Work Phone: [facility] Work Phone: Start: 01-11-2023 Office outpatient vi sit 15 minutes Angélica Swann [facility] Start: 01-11-2023 Telephone encounter [facility] Start: 01-09-2023 Encounter for genera l adult medical examination without abnormal findings DR KELECHI GALVAN [facility] Start: 01-05-2023 End: 01-06-[address] KELECHI GALVAN Facility:[facility] Start: 01-05-2023 End: 01-06-2023 Encounter for general adult medical examination without abnormal findings DR KELECHI GALVAN Facility:[facility] Start: 01-03-2023 End: 01-03-2023 ambulatory Kelechi Galvan Other [facility] Other Start: 01-03-2023 Encounter for genera l adult medical examination without abnormal findings [facility] Start: 01-03-2023 Patient encounter status Conrad omer [facility] Other [facility] Other Start: 01-03-2023 Telephone encounter [facility] Start: 12-21-2022 End: 12-22-[address] KELECHI GALVAN Facility:[facility] Start: 12-08-2022 End: 12-09-[address] KELECHI GALVAN Facility:[facility] Start: 11-23-2022 End: 11-23-2022 ambulatory Kelechi Galvan Other [facility] Other Start: 11-23-2022 Telephone encounter [facility] Start: 11-16-2022 End: 11-17-[address] KELECHI GALVAN Facility:[facility] Start: 11-09-2022 End: 11-24-[address] KELECHI GALVAN Facility:[facility] Start: 11-03-2022 End: 11-04-[address] KELECHI GALVAN Facility:[facility] Start: 10-27-2022 End: 10-28-[address] KELECHI GALVAN [facility] Other Start: 10-27-2022 Telephone encounter [facility] Start: 10-18-2022 End: 10-18-2022 ambulatory Kelechi Galvan Other [facility] Other Start: 10-18-2022 Office outpatient vi sit 25 minutes Kelechi Galvan [facility] Start: 10-07-2022 End: 10-07-2022 ambulatory Kelechi Galvan Other [facility] Other Start: 10-07-2022 Telephone encounter Kelechi Galvan [facility] Start: 08-26-2022 Adult health examination Conrad omer [facility] Other [facility] Other Start: 07-11-2022 End: 07-12-[address] KELECHI GALVAN Facility:[facility] Start: 04-07-2022 End: 04-08-[address] DEANN ELIAS . Facility:[facility] Start: 07-28-2019 Pre-procedure evalua tion check Kelechi Galvan Other [facility] Other Start: 07-17-2018 Gynecological examination normal Kelechi Galvan Other [facility] Other Procedures Date Procedure Procedure Detail Performing Clinician Start: 03-12-2025 MR lumbar spine wo con Kelechi Galvan DO Work Phone: Start: 01-11-2023 Plain X-ray of right hand FITNESS TRAINER-C Angélica Swann Work Phone: Start: 01-18-2019 Preoperative [...] 08/07/2024 1:30 PM EST Office Visit [facility] [address] [place] [id number] Antione Madera DO [address] [place] [address] Ar[address] [facility] [address] Comment on above: Arrived Start: 03-09-2023 ambulatory Ambulatory Facility:[facility] 1 Comprehensive metabo lic 2000 panel - Serum or Plasma [facility] MG Breast - bilatera l Screening [facility] Patient Education Low back pain in adults [facility] Work Phone: [facility] Payers Date Payer Category Payer Self-pay [id number] 2025 Unknown [id number] 2023 Unknown 2021 Private Health Insurance [facility] MEDICA[facility] [id number] 1974 Unknown [id number] [id number]. 593 1974 Unknown [id number] 2.840.1.871851.3.579.2. 59 1974 Unknown [id number] 2.840.1.559118.3.579.2. 593 1974 Unknown [id number] 2.840.1.884380.3.579.2. 593 1974 Unknown [id number] 2.16840.1.687230.3.579.2. 593 1974 Unknown [id number] 2.16.840.1.676878.3.579.2. 593 1974 Unknown [id number] 2.16.840.1.851288.3.579.2. 593 1974 Unknown [id number] 2.16.840.1.919988.3.579.2. 593 1974 Unknown [id number] 2.16.840.1.956097.3.579.2. 593 1974 Unknown [id number] 2.16.840.1.412953.3.579.2. 593 1974 Unknown [id number] 2.16.840.1.296398.3.579.2. 593 1974 Unknown [id number] 2.16.840.1.874163.3.579.2. 1259 1974 Unknown [id number] 2.16.840.1.373433.3.579.2. 196 1959 Unknown [id number] [id number] 1959 Unknown [id number] Medicaid [employer] [id number] Unknown [id number] [id number]. 531 Social History Date Type Detail Facility Unknown if ever smoked [facility] Other Start: 08-07-2024 Sex Assigned At [employer] Other Start: 1975 Sex Assigned At Female [facility] Start: 05-16-2018 End: 05-16-2018 Tobacco smoking status WAIS Never smoked tobacco (finding) [facility] Start: 01-27-2024 End: 01-27-2024 Tobacco smoking status [facility] Ex-smoker (finding) [facility] Start: 07-22-2024 End: 12-27-2024 Sex Female (finding) [facility] Start: 1975 Sex assigned at Not on file [facility] Start: 09-11-1988 End: 09-11-2003 History of tobacco use Current smoker [facility] Start: 09-11-1988 End: 09-11-2003 History of tobacco use Cigarette Smoker [facility] Start: 08-07-2024 Cigarettes smoked current (pack per day) - Reported 1.5 [facility] Start: 08-07-2024 Tobacco use and exposure Smokeless tobacco non-user [facility] Start: 08-07-2024 Alcoholic beverage intake Lifetime non-drinker (finding) [facility] Medical Equipment Procedure Code Equipment Code Equipment [...] hyperglycemia acute December 27, 2 025 8:24am [facility] Work Phone: 1(779) 757-410702-16-2025 Evaluation note* Diagnosis Onset Date Resolution Status Admit Date Lumbar radiculopathy noneactive Febr uary 2024 1:38pm Lumbar spondylosis acute December 27, 2024 8:24am [facility] Work Phone: 1(531) 667-203112-08-2024 Evaluation note* Diagnosis Onset Date Resolution Status [...] mellitus wit h hyperglycemia acute August 23, 024 8:26am Wellness examination acute Dece 2023 8:26am [facility] Work Phone: 1(397) 777-210011-27-2024 History of Present illness Narrative* Antione Madera, DO - 08/07/2024 1:30 PM EST Chief [...] minutes and residual AHI of 0.3. Her [place] Sleepiness scale is a 3. She does have underlying obesity but is trying to work hard with diet exercise and weight loss. [place] about 70 lb but gained a litte bit back and knows she needs to get back on her regular programas she was doing very well. Plan Compliance data was reviewed with her and she is compliant [place] Sleepiness scale is 3 Continue use the CPAP machine whenever sleeping Get back on the diet and exercise regimen The patient was counseled on the need for aggressive diet, exercise, and weight loss. The patient was counseled on proper sleep hygiene and adequate hours of sleep. The patient was counseled on the risks of stroke, TN, and sudden with REBA, along with the [...] to clinic: 1 [id number] Evaluation note* Diagnosis Onset Date Resolution Status Admit Date Carpal tunnel syndrome of right wrist acute June 21 11:38am Insomnia acute June 21, 2024 11:38am Major depression acute June 21, 2024 11:38am Panic attack acute June 11:38am Insomnia acute July 22, 2024 10:19am Major depression acute July 22, 2024 10:19am Panic attack acute July 10:19am Primary hypertension acute Noveric mber 2023 10:19am [facility] Work Phone: 1(797) 321-121102-09-2024 Evaluation note* Encounter Date Diagnosis Assessment Notes Treatment Notes Treatment Clinical Notes Oct, Morbid (severe) obesity due to excess calories (ICD-10 - E66.01) [facility] Other 02-06-2024 Evaluation note* Encounter Date Diagnosis [...] index [BMI] 50.0-59.9, adult (ICD-10 - Z68.43) [facility] Other 01-12-2024 Evaluation note* Encounter Date Diagnosis [...] index [BMI] 50.0-59.9, adult (ICD-10 - Z68.43) [facility] Other 12-29-2023 Evaluation note* Encounter Date Diagnosis Assessment Notes Treatment Notes Treatment Clinical Notes Aug, Prolactinoma (ICD-10 - D35.2) MRI < 10mm, prolactin 80 - 2022 [facility] Other 12-16-2023 Evaluation note* Encounter Date Diagnosis Assessment Notes Treatment Notes Treatment Clinical Notes Aug, Hyperprolactinemia (ICD-10 - E22.1) [facility] Other 12-12-2023 Evaluation note* Encounter Date Diagnosis [...] use, the patient reduces the risk for TN, CVA, HTN, cardiac dysrhythmias and sudden cardiac [...] patient on monthly SBE and yearly mammograms. [facility] Other 09-15-2023 Evaluation note* Encounter Date Diagnosis [...] thoracic region, initial encounter (ICD-10 - S29.019A) [facility] Other 08-08-2023 Evaluation note* Encounter Date Diagnosis Assessment Notes Treatment Notes Treatment Clinical Notes Apr, Sharmin-menopausal (ICD-10 - N95.1) Recommend scheduling appt w/ Director Construction Services. Apr, Primary hypertension (ICD-10 - I10) This [...] use, the patient reduces the risk for TN, CVA, HTN, cardiac dysrhythmias and sudden cardiac deaths.The patient is also aware of the association between REBA and morning headaches, daytime somnolence, fatigue and obesity, which also has been improved with continued use.The patient is compliant with treatment, wearing the equipment every night for greater than 4 hours.The patient is instructed to continue use of the CPAP for REBA treatment. [facility] Other 06-20-2023 Evaluation note* Encounter Date Diagnosis Assessment Notes Treatment Notes Treatment Clinical Notes Feb, Seborrheic dermatitis of scalp (ICD-10 - L21.9) Keep clean, avoid scratching Stop using Mupirocin Initiate topical steroid ointment Feb, Primary hypertension (ICD-10 - I10) This patient is instructed to consume a healthy, low-fat, low-salt diet. They are also encouraged to continue exercise to achieve/maintain a normal BMI. [facility] Other 05-11-2023 Evaluation note* Encounter Date Diagnosis Assessment Notes Treatment Notes Treatment Clinical Notes January, Type 2 diabetes mellitus with hyperglycemia, without long-term current use of insulin (ICD-10 - E11.65) [facility] Other 05-08-2023 Evaluation note* Encounter Date Diagnosis [...] use, the patient reduces the risk for TN, CVA, HTN, cardiac dysrhythmias and sudden cardiac [...] visual defects. January, Hyperprolactinemia (ICD-10 - E22.1) [facility] Other 05-03-2023 Evaluation note* Encounter Date Diagnosis Assessment Notes Treatment Notes Treatment Clinical Notes January, REBA (obstructive sleep apnea) (ICD-10 - G47.33) AHI 104 w/ Psat 68%, BiPAP , full facial mask [facility] Other 05-03-2023 Evaluation note* Encounter Date Diagnosis [...] no improvement in 2 to 3 days [facility] Other 04-25-2023 Evaluation note* Encounter Date Diagnosis Assessment Notes Treatment Notes Treatment Clinical Notes Dec, Type 2 diabetes mellitus with hyperglycemia, without long-term current use of insulin (ICD-10 - E11.65) Dec, Primary hypertension (ICD-10 - I10) Dec, Wellness examination (ICD-10 - Z00.00) [facility] Other 03-30-2023 NoteCONSULTATION CONSULTATION DATE: 12/08/2022 TO: [...] this point for her residual pain symptoms.[id number]* Encounter Date Diagnosis Assessment Notes Treatment Notes Treatment Clinical Notes Nov, REBA (obstructive sleep apnea) (ICD-10 - G47.33) AHI 101 w/ Psat 79% [facility] Other 03-15-2023 Evaluation note* Encounter Date Diagnosis Assessment Notes Treatment Notes Treatment Clinical Notes Nov, REBA (obstructive sleep apnea) (ICD-10 - G47.33) AHI 104 w/ Psat 68% [facility] Other 02-23-2023 NotePAIN MANAGEMENT CONSULTATION CONSULTATION DATE: [...] four weeks' time or sooner if needed.[facility] 11-03-2022 NotePAIN MANAGEMENT CONSULTATION CONSULTATION DATE: [...] on his response to change in medication.[facility] 10-18-2022 Evaluation note* Encounter Date Diagnosis [...] (ICD-10 - R29.818) Referral for sleep study [facility] Other 07-28-2022 NoteCONSULTATION CONSULTATION DATE: 04/07/2022 HISTORY [...] Patient states understanding and all questions answered.[id number] History general Narrative - Reported* Type Description Date Medical History hypertension Medical History back pain Medical History degenerative disc disease Medical History Prolactinoma Medical History asthma Surgical History C section 05/31/2011 Surgical History IVF 12/01/2008 Surgical History hysterectomy laps assisted 04-2 007 Surgical History right foot sx (planter) Hospitalization History see above Hospitalization History blood transfusion 09/2014 [facility] [employer] Other Chief complaint+Reason for visit Narrative* Chief Complaint COVID+ Amb Documentation 3 month follow up Reason for Visit COVID-19 Lumbar spondylosis REBA (obstructive sleep apnea) Primary hypertension Type 2 diabetes mellitus with hyperglycemia [facility] Work Phone: Evaluation noteNo InformationNortEncompass [facility] [employer] Other Evaluation noteNo assessment information available [facility] Work Phone: Evaluation note* Diagnosis Onset Date Resolution Status Type 2 diabetes mellitus with hyperglycemia acute COVID-19 noneactive [facility] Work Phone: Evaluation note* Diagnosis Onset Date Resolution Status COVID-19 noneactive Lumbar spondylosis acute REBA (obstructive sleep apnea) acute Primary hypertension acute Type 2 diabetes mellitus with hyperglycemia acute [facility] Work Phone: Evaluation note* Diagnosis Onset Date Resolution Status Obesity acute Primary hypertension acute Type 2 diabetes mellitus with hyperglycemia acute [facility] Work Phone: Evaluation note* Diagnosis Onset Date Resolution Status Right otitis media with effusion acute Obesity acute Primary hypertension acute Type 2 diabetes mellitus with hyperglycemia acute [facility] Work Phone: Evaluation note* Diagnosis Onset Date Resolution Status Obesity acute REBA (obstructive sleep apnea) acute Palpitation acute Primary hypertension acute Type 2 diabetes mellitus with hyperglycemia acute [facility] Work Phone: Evaluation note* Diagnosis REBA (obstructive sleep apnea)- Primary Obstructive sleep apnea (adult) (pediatric) Hypoxia Hypoxemia Hypersomnia Hypersomnia, unspecified Obesity due to excess calories, unspecified class, unspecified whether serious comorbidity present Snoring Other dyspnea and respiratory abnormality documented in this encounter [facility] Diagnosis Onset Date Resolution Status Admit Date Low back pain acute April 8:21am Lumbar spondylosis acute April 23, 2025 8:21am Major depression acute April 112024 8:21am Obesity acute April 23, 2 025 8:21am REBA (obstructive sleep apnea) acute April 23, 2025 8:21am Primary hypertension acute Augu st 2024 8:21am Type 2 diabetes mellitus wit h hyperglycemia acute April 23 8:21am Screening for colon cancer noneactiv e April 23, 2025 8:21am [facility] Work Phone: History general Narrative - [...] see above Hospitalization History blood transfusion 09/2014 [facility] Other Reason for referral (narrative)No reason for referral information [facility] [place] Work Phone: Summary Purpose Family History No [...] 8:26am Screening mammogram for breast cancer De cember 2023 8:26am Type 2 diabetes mellitus [...] 24am Type 2 diabetes mellitus with hyperglyce [facility] December 27, 2024 8:24am Chief Complaint Admit Date lumbar radiculopathy, lumbar discogenic changes March 12, 2025 7:34am 4 month f/u-HIGH RISK April 23, 2025 8:21am Reason for Visit Admit Date Low back pain April 23, 2025 8: 21am Lumbar spondylosis April 23, 2025 8: 21am Major depression April 23, 2025 8: 21am Obesity April 23, 2025 8: 21am REBA (obstructive sleep apnea) April 8:21am Primary hypertension April 23, 2025 8 :21am Type 2 diabetes mellitus with hyperglyce [facility] April 23, 2025 8:21am Screening for colon cancer April 23, 2025 8:21am Additional Source Comments REASON FOR VISIT (unrecogniz ed section and content) Reason Comments Sleep Apnea INFORMATION SOURCE (unrecogn ized section and content) DATE CREATED AUTHOR 01/11/2023 [facility] DATE CREATED AUTHOR AUTHOR'S ORGANIZ ATION 08/10/2024 [facility] EPIC DATE CREATED AUTHOR AUTHOR'S ORGANIZ ATION 04/03/2025 [facility] DATE CREATED AUTHOR AUTHOR'S ORGANIZ ATION 04/25/2025 [facility] Care Teams (unrecognized sec tion and content) Team Status: Active Member Role Status Alan Galvan DO Primary Care Provider Active Team Status: Inactive Member Role Status Alan Galvan DO Primary Care Provider Active Start: March 12, 2025 End: March 12, 2025 Jeny Manley NP-C Attending Provider Active St art: March 12, 2025 End: March 12, 2025 Team Status: Inactive Member Role Status Alan Galvan DO Primary Care Provider Active Start: April 23, 2025 End: April 23, 2025 Kelechi Galvan DO Attending Provider Active Sta rt: April 23, 2025 End: April 23, 2025 Team Status: Active Member Role Status Alan [...] 2024 Team Status: Inactive Member Role Status ELIAS CrossC Attending Provider Active Team Status: Inactive Member [...] July 22, 2024 End: July 22, 2024 [employer]chanical Equipment [employer] Relationship Specialty Start Date End Date Kelechi Galvan MD [address] [place] [address] PCP - General Internal Medicine 05/25/23 [employer]chanical Equipment [employer] Relationship Specialty Start Date End Date Kelechi Galvan MD [address] [place] [address] PCP - General Internal Medicine 05/25/23 Team [...] BE BASED ON THE PRIMARY CLINICAL RECORDS. [facility] provides no warranty or guarantee of the accuracy or completeness of information in this document.
--- NOTE | 2025-05-21 07:57 | PM.CN ---
Consult Note: HPI Data of Consult Patient: known to practice within the last 3 years Requesting Physician: Jeny Manley NP Primary Care Provider: Kelechi Galvan DO Consult Narrative Reason for consult: low back pain Narrative: Jing Gray a pleasant 49 year old female presents for evaluation of low back pain post bilateral L1/2 L2/3 RFA on 04-14-25 with 70% improvement ongoing. Pain 0/10 today increasing mildly with dishes, leaning, standing, walking. utilizing tizanidine and percocet PRN without side effects. cc:: CC: Jeny Manley NP [facility] Medical History In vitro fertilization ?Z31.83 - Encounter for assisted reproductive fertility procedure cycle (ICD-10) Diabetes ?E11.9 - Type 2 diabetes mellitus without complications (ICD-10) HTN (hypertension) ?I10 - Essential (primary) hypertension (ICD-10) Surgical History History of dilation and curettage ?Z98.890 - Other specified postprocedural states (ICD-10) History of tubal ligation ?Z98.51 - Tubal ligation status (ICD-10) History of hysteroscopy ?Z98.890 - Other specified postprocedural states (ICD-10) Previous section ?Z98.891 - History of uterine scar from previous surgery (ICD-10) History of fasciotomy ?Z98.890 - Other specified postprocedural states (ICD-10) History of laparoscopy ?Z98.890 - Other specified postprocedural states (ICD-10) Social History Little interest or pleasure in doing things: more than half the days Feeling down, depressed, or hopeless: more than half the days Meds Home Medications and Allergies Home Medications ?Medication ?Instructions ?Recorded ?Confirmed ?Type atenolol 50 mg tablet 50 mg PO DAILY 03/09/23 04/14/25 History furosemide 20 mg tablet 20 mg PO DAILY 03/09/23 04/14/25 History lisinopril 5 mg tablet 5 mg PO DAILY 03/09/23 04/14/25 History metformin 1,000 mg tablet 1,000 mg PO QDAY 03/09/23 04/14/25 History potassium chloride 10 mEq 10 meq PO DAILY 03/09/23 04/14/25 History tablet,extended release (Klor-Con) tizanidine 4 mg tablet See Rx Instructions .Route 11/26/24 04/14/25 Rx .COMPLEX PRN muscle spasticity #225 tabs ibuprofen 600 mg tablet 600 mg PO DAILY PRN pain 12/04/24 04/14/25 History oxycodone-acetaminophen 5 mg-325 1 tab PO TID PRN pain, 01/08/25 04/14/25 Rx mg tablet (Percocet) moderate-severe #21 tabs bupropion HCl 300 mg 24 hr tablet, 300 mg PO QDAY 02/06/25 04/14/25 History extended release escitalopram oxalate 10 mg tablet 10 mg PO QDAY 02/06/25 04/14/25 History tizanidine 4 mg capsule See Rx Instructions .Route 02/20/25 04/14/25 Rx .COMPLEX PRN muscle spasticity #225 caps Allergies Allergy/AdvReac Type Severity Reaction Status Date / Time Penicillins Allergy Rash Verified 04/14/25 10:32 Exam Constitutional Documenting provider has reviewed patient's vital signs: yes Common normals: no apparent distress, oriented x3, healthy appearing, alert and well nourished General appearance: cooperative HENMT Common normals: normocephalic, hearing grossly normal bilaterally and moist oral mucous membranes Head and scalp: normocephalic Eye Common normals: PERRL Pupil: PERRL Neck & C-Spine Common normals: full ROM General: normal visual inspection Chest Common normals: inspection of chest normal Respiratory Common normals: normal respiratory effort, no retractions and no use of accessory muscles Back & Pelvis Lumbar spine/lower back: ROM limited and straight leg raise negative bilaterally; no pain with ROM and no lumbar spinal tenderness Other: strength 5/5 in BLE sensation intact BLE Neuro Common normals: oriented x3 Sensorium/orientation: alert Psych Common normals: mental status grossly normal, thought process normal, cooperative, affect normal, speech normal and activity/motor behavior normal Speech: normal speech Thought process: normal thought process Results Additional Findings Additional findings: If on a controlled substance or opioids, I have checked an [place] report on this patient and there are no aberrancies noted in the prescribing history.??If on a controlled substance or opioid a drug screen was completed and reviewed within the last year, and if there has not been a drug screen completed we ordered one today to monitor higher risk, state monitored pain medication use. As part of providing excellent, safe, comprehensive care, the following was completed at our patient's visit: 1. A medication reconciliation and review to ensure accurate knowledge of current/active medications, including asking our patients to inform us about any [id number] medications or herbal remedies/nutritional supplements/alternative remedies. 2. A review to specifically ensure our patients have had annual screening for screening for depression, screening for tobacco use, and screening for unhealthy alcohol use. For concerning screenings had a discussion with the patient, provided patient education, and recommended follow-up with primary care provider when appropriate. If patient noted with a risk of falling, they received education on strength, gait, and balance training to prevent future risk of falling. Portions of this note may have been carried over from the previous visit and updated as appropriate. Please note this office utilizes paper charting in addition to the electronic medical record. A list of current medications, vitals, and PMH is available there as the clinical staff outside of myself do not have access to [facility] charting during the clinic day operations. As part of providing quality comprehensive care the current medications, vitals, and PMH were reviewed in the paper chart. Assessment and Plan Assessment and Plan (1) Lumbar spondylosis: Assessment and Plan: SHALA 22% (2) Myofascial pain: Plan continue motrin otc prn and tizanidine 4-8mg bid prn pain/spasms sparingly utilizing percocet as pain is well controlled f/u 6 months, sooner if needed
== END 2025-05-21 07:44 | disposition home or self-care (01) ==
LOC: PM 07:44
PROVIDERS: PCP Internal Medicine; Visit Provider Nurse Practitioner
DX: M47.816 Spondylosis without myelopathy or radiculopathy, lumbar region (principal); M79.18 Myalgia, other site
CPT/HCPCS: G0463

== ENCOUNTER 2025-07-08 12:56 | Emergency (ER) | payer OTHER, SELFPAY ==
[2025-07-08 13:09] VITALS: BP 126/105; PULSE 88; O2SAT 99; BMI 49.1
--- OUTSIDE RECORDS SUMMARY | 2025-07-08 13:31 | XMS_ITS | CCD ---
Author Organization [facility] CliniSyil Care Team Providers Care Pathology Laboratory Aides Teacher Name Role Phone Kelechi Galvan Unavailable COLE, [...] ., NARENDRANATH Admitting Bebe vailable LAKSHMIPATHY ., NARENDMERIATH Attending Bebe vailable ZIEBER, DR FELIPE Santiago [...] Angélica Swann Unavailable TRINI Swann Attending Provider Kelechi Galvan MD Primary Care Provider ANTIONE MADERA Attending Unavailable Kelechi Galvan DO Primary Care Provider Kelechi Galvan DO Attending Provider Sindhu RANDALL-CJeny Attending Provider [phone] Cole RAINEY, Kelechi Primary Care Provider Kelechi Galvan DO Attending Provider [phone] Hernan BURGESS, Joe Ko Attending Unavailable Jeny Manley Admitting Unavailable Kelechi Galvan Primary Care Unavailable Jeny Manley Attending Unavailable Aries Rincon Attending Unavailab le Aries Rincon Admitting Unavailab le Kelechi Galvan Primary Care Unavailable Allergies Allergy ClassificationReported Allergen(s)Allergy TypeDate of OnsetReaction(s) Facility (13 sources)Penicillin GDrug Allergypt doesn't rememberConverged Access Other (2 sources)PenicillinsDrug allergy (disorder)[id number] [facility] Repository (20 sources)DoxycyclineDrug Xopckod44-14-6541Ihogzgp, Unknown ReactionSelect [facility]ty [facility], Inc (2 sources)PenicillinDrug AllergyUnknoIntense Other (9 sources)Penicillin G Benzathine & ProcDrug cooanfz37-56-7999FwmbskvQephxTusaar Corp Other (2 sources)patient allergy list reviewed by nurse or physiciaPropensity to adverse aohtcqgbv25-45-6000Ygcuckd:DoneConverged Access Other (2 sources)Allergies ReconciledPropensity to adverse reactionsUnkvalley hospital medical centerIntense Other (11 sources)Penicillin G Benzathine; Translations: [penicillin G benzathine] Allergy to pjsfcekvm97-32-8553Uqknsof ReactionSelect Medical Specialty [facility], Inc Comment on above:Onset Date: 12/21/2006 (3 sources)PenicillinsPropensity to adverse rmskotqmm32-99-5481UlrzzhcKGTA Healthcare Work Phone: (1 source)DoxycyclineDrug Whngmsq20-21-5366YwrqurefoSelect Medical Specialty [facility], Inc Repository Medications Current Medications MedicationDrug Class(es)DatesSig (Normalized)Sig (Original)atenolol 50 mg oral tablet (20 sources)beta-Adrenergic BlockerStart: 04-08-2024 End: 51-42-6748sioe 1 tablet by mouth once dailyAtenolol 50 mg tablet Active 0 .ROUTE .COMPLEX March 30, 2025 8:10am TAKE 1 TABLET BY MOUTH EVERY DAY Complies with drug therapyStart: 04-19-2023 End: 09-43-5395jodp 1 tablet by mouth once dailyAtenolol 50 mg tablet Discontinued 50 MG PO Daily October 27, 2023 1:00am April 08, 2024 9:59am Atenolol Not-Taking/PRNAtenolol Not-TakingAtenolol Activecyclobenzaprine hydrochloride 10 mg oral tablet (3 sources)Muscle RelaxantStart: 01-23-2023 End: 91-72-2102ulvp 1 tablet by mouth every twenty-four hours as needed cyclobenzaprine (Flexeril) 10 MG tablet Take 10 mg by mouth Daily as needed for muscle spasms. 01/23/2023 08/07/2024 Discontinued (Therapy completed) escitalopram 10 mg oral tablet (20 sources)Serotonin Reuptake InhibitorStart: 16-28-9344awkh 1 tablet by mouth once dailyEscitalopram Oxalate 10 mg tablet Active 10 MG PO Daily December 27, 2024 8:55am Complies withdrug therapyStart: 07-15-2024 End: 89-28-0338jlii 1 tablet by mouth once dailyEscitalopram Oxalate 20 mg tablet Discontinued 0 .ROUTE .COMPLEX July 15, 2024 9:45pm 2024 8:56am TAKE 1 TABLET BY MOUTH EVERY DAYStart: 06-21-2024 End: 25-20-5759frwo 1 tablet by mouth once dailyEscitalopram Oxalate 20 mg tablet Discontinued 20 MG PO Daily June 21, 2024 12:11pm July 05, 2024 1:19pmStart: 04-18-2023 End: 27-25-0999pvyi 1 tablet by mouth once dailyEscitalopram Oxalate 10 mg tablet Discontinued 10 MG PO Daily October 27, 2023 1:00am March 9:59amlifitegrast 50 mg/ml ophthalmic solution (3 sources)Lymphocyte Function-Associated Antigen-1 AntagonistStart: 05-02-2023 End: 25-40-9491sfez 1 dose into the eye(s) in the morningXiidra 5 % solution Administer 1 each into affected eye(s) in the morning and at noon. 05/02/2023 Discontinued (Therapy completed)lisinopril 5 mg oral tablet (20 sources)Angiotensin Converting Enzyme InhibitorStart: 04-08-2024 End: 07-39-2121oufg 1 tablet by mouth once dailyLisinopril 5 mg tablet Active 0 .ROUTE .COMPLEX 90 March 30, 2025 8:10am TAKE 1 TABLET BY MOUTH EVERY DAY Complies with drug therapyStart: 05-07-2023 End: 89-71-2695jrbm 1 tablet by mouth once dailyLisinopril 5 mg tablet Discontinued 5 MG PO Daily October 27, 2023 1:00am April 08, 2024 9:59am Lisinopril Not-Taking/PRNLisinopril Not-TakingLisinopril ActivemetFORMIN hydrochloride 1000 mg oral tablet (20 sources)BiguanideStart: 01-15-0067rayg 1 tablet by mouth once dailyMetformin 1,000 mg tablet Active 1000 MG PO Daily April 23, 2025 12:00am Complies with drug therapyStart: 03-28-2024 End: 49-31-3756juxg 1 tablet by mouth twice dailyMetformin 1,000 mg tablet Discontinued 0 .ROUTE .COMPLEX 180 March 28, 2024 8:45am April 16, 2024 8:33am TAKE 1 TABLET BY MOUTH TWICE A DAY FOR 30 DAYSStart: 10-27-2023 End: 90-66-7252qdbp 1 tablet by mouth twice dailyMetformin 1,000 mg tablet Discontinued 1000 MG PO Twice daily October 27, 2023 1:00am March 8:45amStart: 09-65-2250memt 1 tablet by mouth every twelve hoursmetFORMIN HCl 1000 MG 1 tablet Orally twice a day Apr, ActiveStart: 05-29-2022 End: 44-62-2036kkbb 1 tablet by mouth in the morningmetFORMIN (Glucophage) 500 MG tablet Take 500 mg by mouth in the morning and 500 mg in the evening.Take with meals. Take with food. . 05/29/2022 08/07/2024 Discontinued (Therapy completed)OneTouch Ultra - (8 sources)OneTouch Ultra - USE 1 STRIP TO CHECK HOME BLOOD SUGAR for 25 Active potassium chloride 10 meq extended release oral tablet (5 sources)Start: 93-99-7303Iscwdgafe Chloride (Klor-Con 10) 10 mEq tablet extended release Active 10 MEQ PO Daily March 05, 2025 12:00am Complies with drug therapyStart: 68-70-6876tmdq 1 tablet by mouth in the morningpotassium chloride CR (Klor-Con) 10 MEQ ER tablet Take 10 mEq by mouth in the morning. 04/30/2023 ActiveSemaglutide (1 source)Start: 49-89-8387Ansjjpomgcx (Ozempic) 0.25 mg or 0.5 mg (2 mg/3 mL) pen injector Active 0.5 MG SUBCUT every week April 23, 2025 12:00am for 4 weeks Complies with drug therapytiZANidine 4 mg oral tablet (20 sources)Central alpha-2 Adrenergic AgonistStart: 15-46-4047gvoi 2 tablets by mouth once daily at bedtimeTizanidine 4 mg tablet Active 8 MG PO Daily at bedtime October 27, 2024 2:50pm Complies with drug therapyStart: 10-27-2023 End: 30-74-2709ojup 1 tablet by mouth once daily at bedtimeTizanidine 4 mg tablet Discontinued 4 MG PO Daily at bedtime August 23, 2024 9:56am October 27, 2024 2:50pmStart: 92-32-5565didh 1 tablet by mouth every six hours as neededtiZANidine (Zanaflex) 4 MG tablet Take 4 mg by mouth every 6 (six) hours if needed. 05/16/2023 Activetake 1 tablet by mouth once daily at bedtimetiZANidine HCl 4 MG TAKE 1 TABLET BY MOUTH EVERYDAY AT BEDTIME for 30 Activetake 1 tablet by mouth every eight hourstiZANidine HCl 4 MG 1 tablet as needed Orally every 8 hrs ActiveTrulicity 4.5 MG/0.5ML solution pen-injector (3 sources)Start: 81-92-8653bwupxp 4.5 mg by subcutaneous injection every week Trulicity 4.5 MG/0.5ML solution pen-injector Inject 4.5 mg under the skin 1 (one) time per week. 05/03/2023 Active Completed/Discontinued Medications MedicationDrug Class(es)DatesSig (Normalized)Sig (Original)baclofen 10 mg oral tablet (16 sources)gamma-Aminobutyric Acid-ergic AgonistStart: 10-27-2023 End: 84-69-3620erip 1 tablet by mouth twice dailyBaclofen 10 mg tablet Discontinued 10 MG PO Twice daily October 27, 2023 1:00am January 27, 2024 1: 15pmtake 1 tablet by mouth every twelve hoursBaclofen 10 MG 1 tablet as needed Orally Twice a day Lnorsr75 hr buPROPion hydrochloride 450 mg extended release oral tablet (20 sources)AminoketoneStart: 12-27-2024 End: 64-26-8180wity 1 tablet by mouth once daily in the morningBupropion Hcl 450 mg tablet extended release 24 hr Discontinued 450 MG PO Every morning 2024 12:00am April 23, 2025 8:29amStart: 08-06-2024 End: 19-67-8335gzpp 1 tablet by mouth once daily in the morningBupropion Hcl 300 mg tablet extended release 24 hr Active 0 .ROUTE .COMPLEX January 30, 2025 7:36am TAKE 1 TABLET BY MOUTH EVERY DAY IN THE MORNING Complies with drug therapyStart: 00-12-2855fysm 1 tablet by mouth once daily in the morning Bupropion Hcl 300 mg tablet extended release 24 hr Active 0 .ROUTE .COMPLEX August 06, 2024 10:05pm TAKE 1 TABLET BY MOUTH EVERY MORNINGStart: 77-03-9389kxxm 1 tablet by mouth once daily in the morningBupropion Hcl 300 mg tablet extended release 24 hr Active 0 .ROUTE .COMPLEX August 06, 2024 9 :05pm TAKE 1 TABLET BY MOUTH EVERY MORNINGStart: 93-76-6751fwDWOPcck HCl (WELLBUTRIN PO) 07/22/2024 ActiveStart: 07-15-2024 End: 80-07-5352ndgy 1 tablet by mouth once daily in the morningBupropion Hcl 300 mg tablet extended release 24 hr Discontinued 300 MG PO Every morning July 15, 2024 1:52pm August 06, 2024 10:06pmStart: 07-05-2024 End: 55-46-9070agnd 2 tablets by mouth once daily in the morningBupropion Hcl 300 mg tablet extended release 24 hr Discontinued 150 MG PO Every morning July 05, 2024 1:19pm July 15, 2024 1:53pmStart: 06-24-2024 End: 39-76-7795cbas 1 tablet by mouth once daily in the morningBupropion Hcl 150 mg tablet extended release 24 hr Discontinued 150 MG PO Every morning June 24, 2024 12:00am July 05, 2024 1:19pmcabergoline 0.5 mg oral tablet (20 sources)Ergot Derivativetake 1 tablet by mouth two times weekly as needed Cabergoline 0.5 MG 1 tablet Orally 2 times a week Not-Taking/PRNcefdinir 300 mg oral capsule (15 sources)Cephalosporin AntibacterialStart: 08-18-2024 End: 99-83-3393tlfw 1 capsule by mouth twice dailyCefdinir 300 mg capsule Discontinued 300 MG PO Twice daily August 23, 2024 1:00am August 28, 2024 3:19pmStart: 01-27-2024 End: 10-27-5210kkvi 1 capsule by mouth every twelve hoursCefdinir 300 mg capsule Discontinued 300 MG PO Every 12 hours 30 06January 27, 2024 12:00am April 16, 2024 8:34amcetirizine hydrochloride 10 mg oral tablet (20 sources)Histamine-1 Receptor AntagonistStart: 03-05-2025 End: 83-71-1073cocz 1 tablet by mouth once dailyCetirizine 10 mg tablet Discontinued 10 MG PO Daily 90 90 March 05, 2025 5:19pm April 23, 2025 8 :29amStart: 06-23-2024 End: 07-59-6004cshy 1 tablet by mouth once dailyCetirizine 10 mg tablet Discontinued 0 .ROUTE .COMPLEX 90 June 23, 2024 12:17pm March 05, 2025 5:20pm TAKE 1 TABLET BY MOUTH EVERY DAYStart: 05-02-2023 End: 89-31-9679zvqu 1 tablet by mouth once dailyCetirizine 10 mg tablet Discontinued 10 MG PO Daily October 27, 2023 1:00am June 23, 2024 12 :17pmdapagliflozin 5 mg oral tablet (20 sources)Sodium-Glucose Cotransporter 2 InhibitorStart: 01-16-2023 End: 14-33-0201ufhw 1 tablet by mouth once dailyDapagliflozin Propanediol (Farxiga) 5 mg tablet Discontinued 5 MG PO Daily October 27, 2023 1:00am February 26, 2024 1:07pmDexamethasone / Neomycin / Polymyxin B (20 sources)Aminoglycoside Antibacterial, Polymyxin-class Antibacterial, CorticosteroidStart: 85-01-9384gcax 2 drop(s) into the eye(s) three times daily as neededMaxitrol 3.5-03857-7.1 2 drops into affected eye Ophthalmic Three times a day for 7 days Sep, Not-Taking/PRNStart: 09-71-8854exie 2 drop(s) into the eye(s) three times dailyMaxitrol 3.5-72176-4.1 2 drops into affected eye Ophthalmic Three times a day for 7 days Sep, Not-TakingStart: 09-13-2020 take 2 drop(s) into the eye(s) three times dailyMaxitrol 3.5-26574-2.1 2 drops into affected eye Ophthalmic Three times a day for 7 days Sep, Active Dulaglutide (20 sources)GLP-1 Receptor AgonistStart: 10-27-2023 End: 56-64-8584Cllbynwbfoh (Trulicity) 4.5 mg/0.5 mL pen injector Discontinued 4.5 MG SUBCUT every week October 27, 2023 1:00am October 27, 2024 2:49pm Start: 20-99-8804brkwze 4.5 mg by subcutaneous injection every weekTrulicity 4.5 MG/0.5ML 4.5mg Subcutaneous weekly for 30 days Oct, ActiveStart: 51-87-1742vrhwav 4.5 mg by subcutaneous injection every weekTrulicity 4.5 MG/0.5ML 4.5mg Subcutaneous weekly Oct, ActiveStart: 86-22-5616onvxvu 4.5 mg by subcutaneous injection every weekTrulicity 4.5 MG/0.5ML 4.5mg Subcutaneous weekly for 28 days Oct, Activeinject 4.5 mg by subcutaneous injection every weekTrulicity 4.5 MG/0.5ML INJECT 4.5 MG SUBCUTANEOUSLY WEEKLY ActiveDulaglutide (Trulicity) 4.5 mg/0.5 mL pen injector (7 sources)Start: 10-27-2023 End: 39-12-1383Diwobwpghuc (Trulicity) 4.5 mg/0.5 mL pen injector Discontinued 4.5 MG SUBCUT every week October 27, 2023 1:00am October 27, 2024 2:49pm Start: 10-27-2023 End: 90-77-8811Obxrbltngil (Trulicity) 4.5 mg/0.5 mL pen injector Discontinued 4.5 MG SUBCUT every week October 27, 2023 12:00am October 27, 2024 1:49pm Start: 94-06-0534Nqefizbtfxn (Trulicity) 4.5 mg/0.5 mL pen injector Active 4.5 MG SUBCUT every week October 27, 2023 12:00amStart: 31-27-9390Xxwvichytag (Trulicity) 4.5 mg/0.5 mL pen injector Active 4.5 MG SUBCUT every week October 27, 2023 1:00amfluticasone propionate 0.05 mg/actuat metered dose nasal spray (11 sources)CorticosteroidStart: 08-18-2024 End: 92-92-1683lbuz 1 spray(s) nasal route once dailyFluticasone Propionate (Flonase Allergy Relief) 50 mcg/actuation spray,suspension Discontinued 1 SPRAY INTRANASAL Daily August 18, 2024 1:00am December 27, 2024 8:39am administer into each nostrilStart: 01-27-2024 End: 25-35-1609lhnu 2 spray(s) nasal route once dailyFluticasone Propionate (Flonase Allergy Relief) 50 mcg/actuation spray,suspension Discontinued 2 SPRAY INTRANASAL Daily January 27, 2024 12:00am October 27, 2024 2:45pm administer 2 spray intoeach nostrilfurosemide 20 mg oral tablet (20 sources)Loop DiureticStart: 04-05-2023 End: 30-73-8103yvtb 1 tablet by mouth once dailyFurosemide 20 mg tablet Discontinued 20 MG PO Daily October 27, 2023 1:00am November 18, 2024 10:29pm Furosemide ActivehydrOXYzine hydrochloride 50 mg oral tablet (15 sources)AntihistamineStart: 06-27-2024 End: 12-95-9666gytc 1 tablet by mouth once daily at bedtime as needed for anxietyHydroxyzine Hcl 50 mg tablet Discontinued 50 MG PO Daily at bedtime as needed for anxiety 03 17June 27, 2024 12:42pm October 27, 2024 2:49pm Start: 06-21-2024 End: 64-50-7254sbvb 1 tablet by mouth three times daily as needed for anxiety Hydroxyzine Hcl 25 mg tablet Discontinued 25 MG PO Three times daily as needed for anxiety June 21, 2024 12:00am June 21, 2024 12:23pmKetorolac (20 sources)Nonsteroidal Anti-inflammatory Drug, Cyclooxygenase InhibitorStart: 02-46-5905Cdimvry per 15 mg Jun, 30 mglevoFLOXacin 750 mg oral tablet (4 sources)Quinolone AntimicrobialStart: 08-28-2024 End: 73-80-5820jbpc 1 tablet by mouth once dailyLevofloxacin 750 mg tablet Discontinued 750 MG PO Daily 03 17August 28, 2024 1:00am October 27, 2024 2:45pmmethylPREDNISolone (20 sources)CorticosteroidStart: 00-55-8497Klsc-Medrol 80 mg Feb, 80 mg Nirmatrelvir-Ritonavir (2 sources)Start: 10-27-2023 End: 71-54-8933ytjy 2 tablets by mouth once, then take 1 tablet by mouth twice dailyNirmatrelvir-Ritonavir (Paxlovid) 300 mg (150 mg x 2)-100 mg tablets,dose pack Discontinued 0 PO per package directions 07 02October 27, 2023 1:00am December 20, 2023 6:10pm take TWO 150 mg tabletsof nirmatrelvir with ONE 100 mg tablet of ritonavir twice daily for 5 days orally per package directions; Nirmatrelvir-Ritonavir (Paxlovid) 300 mg (150 mg x 2)-100 mg tablets,dose pack (8 sources)Start: 10-27-2023 End: 50-92-1672bzyz 2 tablets by mouth once, then take 1 tablet by mouth twice dailyNirmatrelvir-Ritonavir (Paxlovid) 300 mg (150 mg x 2)-100 mg tablets,dose pack Discontinued 0 PO per package directions 07 02October 27, 2023 12:00am December 20, 2023 5:10pm take TWO 150 mg tablets of nirmatrelvir with ONE 100 mg tablet of ritonavir twice daily for 5 days orally per package directions;Start: 10-27-2023 End: 72-74-2141scyz 2 tablets by mouth once, then take 1 tablet by mouth twice dailyNirmatrelvir-Ritonavir (Paxlovid) 300 mg (150 mg x 2)-100 mg tablets,dose pack Discontinued 0 PO per package directions 07 02October 27, 2023 1:00am December 20, 2023 6:10pm take TWO 150 mg tabletsof nirmatrelvir with ONE 100 mg tablet of ritonavir twice daily for 5 days orally per package directions;Start: 60-11-8466nszh 2 tablets by mouth once, then take 1 tablet by mouth twice daily Nirmatrelvir-Ritonavir (Paxlovid) 300 mg (150 mg x 2)-100 mg tablets,dose pack Active 0 PO per package directions 07 02October 27, 2023 12:00am take TWO 150 mg tablets of nirmatrelvir with ONE 100mg tablet of ritonavir twice daily for 5 days orally per package directions;phentermine hydrochloride 37.5 mg oral tablet (20 sources)Sympathomimetic Amine AnorecticStart: 10-27-2023 End: 25-89-3130plof 1 tablet by mouth once dailyPhentermine 37.5 mg tablet Discontinued 37.5 MG PO Daily May 28, 2024 2:05pm June 21, 2024 12:11pm start 05/28Start: 05-70-7879xbwe 1 tablet by mouth once daily before breakfastAdipex-P 37.5 MG 1 tablet before breakfast Orally Once a day for 30 days Rx #3 Oct, ActiveStart: 61-31-0932xxfq 1 tablet by mouth once daily before breakfastAdipex-P 37.5 MG 1 tablet before breakfast Orally Once a day Rx #2 Sep, ActiveStart: 78-53-1875mrin 1 tablet by mouth once daily before breakfastAdipex-P 37.5 MG 1 tablet before breakfast Orally Once a day for 30 days Rx #1 Aug, Activepotassium 99 mg extended release oral tablet (17 sources)Start: 10-27-2023 End: 42-87-3466tasn 1 mg by mouth once dailyPotassium 99 mg tablet Discontinued MG PO Daily October 27, 2023 1:00am March 05, 2025 5:16pmStart: 10-27-2023 take 1 mg by mouth once dailyPotassium Active MG PO Daily October 27, 2023 1:00amtake 1 tablet by mouth once dailyPotassium 99 MG 1 tablet Orally Once a day ActivePotassium ActivepredniSONE 20 mg oral tablet (11 sources)Start: 12-27-2024 End: 51-14-7350Tkolnsmyvb 20 mg tablet Discontinued 20 MG PO As Directed December 27, 2024 12:00am April 23, 2025 8:29am 1 tab tid w/ food x 3 days, then bid w/ food x 3 days, then qd w/ food x 3 daysStart: 62-10-1801bhoh 1 tablet by mouth every twelve hourspredniSONE 20 MG 1 tablet Orally bid for 5 day(s) May, Not-Taking/PRNToradol 30 mg/ml (8 sources)Start: 71-37-4313Ujccbsb 30 mg/ml May, 30 mgtraMADol hydrochloride 50 mg oral tablet (3 sources)Opioid AgonistStart: 12-27-2024 End: 97-28-7134jsdu 1 tablet by mouth three times daily as needed for pain Tramadol 50 mg tablet Discontinued 50 MG PO Three times daily as needed for pain 31 03December 27, 2024 12:00am April 23, 2025 8:29amtriamcinolone acetonide 5 mg/ml topical cream (20 sources)CorticosteroidStart: 10-27-2023 End: 19-57-9530Khrtdilciyygo Acetonide 0.5 % cream Discontinued 1 APPLIC TOPICAL Twice daily October 27, 2023 1:00am January 27, 2024 1:16pmStart: 05-26-2023 Kenalog-40 May, 40 mgStart: 27-65-0071Oxwykrzapvutj Acetonide 0.5 % 1 application Externally Twice a day for 14 days Feb, Not-TakingStart: 92-90-2654LESKWMX - 10 mg Jun, 40 mgStart: 99-47-7540ZNRNHVK - 10 mg January, 60 mgTriamcinolone Acetonide 0.5 % APPLY DAILY TO SKIN TO AFFECTED AREA TWICE A DAY FOR 2 WEEKS for 30 Active Problems Active Problems Problem ClassificationProblemDateDocumented DateEpisodic/ChronicAcute bronchitis (2 sources)Acute bronchitis; Translations: [Acute bronchitis due to other specified organisms]EpisodicAnxiety disorders (7 sources)Panic attack; Translations: [Panic disorder [episodic paroxysmal anxiety]]80-12-5763GnvfyzrQwywtrh dysrhythmias (9 sources)Palpitations; Translations: [Palpitations]Onset: EpisodicChronic obstructive pulmonary disease and bronchiectasis (2 sources)Acute exacerbation of chronic obstructive airways disease; Translations: [Chronic obstructive pulmonary disease with (acute) exacerbation] Onset: 82-68-4674KnqwqhjQfnmcgvpdccgk of surgical procedures or medical care (2 sources)Postoperative hemorrhage; Translations: [Postprocedural hemorrhage of a genitourinary system organ or structure following a genitourinary system procedure]EpisodicDiabetes mellitus with complications (20 sources)Type 2 diabetes mellitus; Translations: [Type 2 diabetes mellitus with hyperglycemia]Onset: 62-25-0981DawxjvcZgrfuaape hypertension (20 sources)Essential hypertension; Translations: [Essential (primary) hypertension]Onset: 53-49-4930XjvgtblTgusbt infertility (2 sources)Female infertility associated with anovulation; Translations: [Female infertility associated with anovulation]Onset: 72-85-9005FcjhwnhVlowu of unknown origin (2 sources)Fever; Translations: [Fever, unspecified]EpisodicHeadache; including migraine (4 sources)Migraine without aura, not refractory ; Translations: [Migraine, unspecified, not intractable, without status migrainosus]ChronicImmunizations and screening for infectious disease (4 sources)Contact with and (suspected) exposure to other viral communicable diseases; Translations: [Exposureto viral disease (event)]EpisodicInflammation; infection of eye (except that caused by tuberculosis or sexually transmitteddisease) (2 sources)Chronic allergic conjunctivitis; Translations: [Other chronic allergic conjunctivitis]Onset: 08-13-0172IormnmjQqvdgkzsyaxn; infection of eye (except that caused by tuberculosis or sexually transmitteddisease) (2 sources)Conjunctivitis; Translations: [Unspecified conjunctivitis]Episodic Joint disorders and dislocations; trauma-related (2 sources)Chondromalacia of patella; Translations: [Chondromalacia patellae, left knee]Onset: 09-90-5157JgaetqpTiqyrggnaj disorders (10 sources)Perimenopausal state; Translations: [Menopausal and female climacteric states]ChronicMenstrual disorders (8 sources)Irregular periods; Translations: [Irregular menstrual cycle]Onset: 73-87-3317XmbehqlGeip disorders (20 sources)Moderate major depression, single episode; Translations: [Major depressive disorder, single episode, moderate]ChronicMycoses (2 sources)Candidiasis; Translations: [Candidiasis, unspecified]Episodic Nonmalignant breast conditions (17 sources)Large breast; Translations: [Macromastia]Onset: 07-04-8443Litizltg Other aftercare (2 sources)High risk drug monitoring status; Translations: [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]EpisodicOther aftercare (2 sources)History and physical examination, follow-up; Translations: [Encounter for follow-up examination after completed treatment for conditions other than malignant neoplasm]EpisodicOther and unspecified benign neoplasm (20 sources)Prolactinoma; 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] 22-32-2025FnelaolwTfrod and unspecified benign neoplasm (3 sources)Benign neoplasm of pituitary gland; 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]EpisodicOther and unspecified benign neoplasm (2 sources)Benign neoplasm of pituitary gland; 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]EpisodicOther complications of ; puerperium affecting management of mother (13 sources)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 associated with childbirth; Translations: [Galactorrhea]EpisodicOther congenital anomalies (2 sources)Congenital spondylolysis of lumbosacral region; Translations: [Congenital spondylolysis, lumbosacral region]Onset: 39-15-8366GqwkbxbDmaom connective tissue disease (13 sources)Plantar fasciitis of right foot; Translations: [Plantar fasciitis of right foot]EpisodicOther connective tissue disease (8 sources)Disease suspected; Translations: [Other symptoms and signs involving the nervous system]EpisodicOther connective tissue disease (13 sources)Calcaneal spur; Translations: [Heel spur]EpisodicOther connective tissue disease (1 source)Other symptoms and signs involving the nervous systemEpisodicOther connective tissue disease (1 source)Pain in right handEpisodicOther connective tissue disease (2 sources)Plantar fascial fibromatosis; Translations: [Plantar fascial fibromatosis]EpisodicOther diseases of kidney and ureters (4 sources)Acquired renal cystic disease; Translations: [Acquired cyst of kidney]Onset: 81-53-1034XkyfcyjhStduy diseases of veins and lymphatics (4 sources)Peripheral venous insufficiency; Translations: [Venous insufficiency (chronic) (peripheral)]Onset: 47-22-6938CeqcghjkAwxwb endocrine disorders (20 sources)Hyperprolactinemia; Translations: [Hyperprolactinemia]ChronicOther endocrine disorders (3 sources)HyperprolactinemiaChronicOther endocrine disorders (2 sources)Polycystic ovaries; Translations: [Polycystic ovarian syndrome] ChronicOther female genital disorders (2 sources)Abnormal vaginal bleeding; Translations: [Other specified abnormal uterine and vaginal bleeding]ChronicOther fractures (1 source)Collapsed vertebra, not elsewhere classified, thoracic region, initial encounter for fracture; Translations: [COLLAPSED VERT NEC THOR INIT ENC]Onset: 40-40-9116CfniyrmcOikow inflammatory condition of skin (10 sources)Seborrheic dermatitis of scalp; Translations: [Seborrheic dermatitis, unspecified]EpisodicOther inflammatory condition of skin (1 source)Seborrheic dermatitis, unspecifiedEpisodicOther lower respiratory disease (8 sources)Cough; Translations: [Cough]EpisodicOther lower respiratory disease (2 sources)Hypoxia; Translations: [Hypoxemia]02-45-9697RpqptskaMxhps lower respiratory disease (2 sources)Snoring; Translations: [Snoring]35-82-0392VhilebymVfsgk nervous system disorders (1 source)Other chronic pain; Translations: [OTHER CHRONIC PAIN]Onset: 02-23-5121FsucdpnHifbj nervous system disorders (1 source)Other specified mononeuropathies; Translations: [OTHER SPECIFIED MONONEUROPATHIES]Onset: 69-95-0912CbhrydbLdjso nervous system disorders (5 sources)Carpal tunnel syndrome of right wrist; Translations: [Carpal tunnel syndrome, right upper limb]65-55-5870JdooqykFosiy nervous system disorders (1 source)Carpal tunnel syndrome, right upper limb; Translations: [Carpal tunnel syndrome]63-15-0409UhtavgcDvcbp nutritional; endocrine; and metabolic disorders (20 sources)Morbid obesity; Translations: [Morbid (severe) obesity due to excess calories]Onset: 61-27-5448XwovoepFaloc nutritional; endocrine; and metabolic disorders (20 sources)Body mass index 40+ - severely obese; Translations: [Body mass index (BMI) 45.0-49.9, adult]Onset: 956103-88-6518ScbgochLiqkg nutritional; endocrine; and metabolic disorders (6 sources)Morbid (severe) obesity due to excess caloriesChronicOther nutritional; endocrine; and metabolic disorders (13 sources)Obesity; Translations: [Obesity, unspecified]35-78-8511VkothjeZxreo nutritional; endocrine; and metabolic disorders (2 sources)Hypercalcemia; Translations: [Hypercalcemia]Onset: 70-28-8213Vgcwvhk Other nutritional; endocrine; and metabolic disorders (7 sources)Severe obesity; Translations: [Morbid (severe) obesity due to excess calories]ChronicOther nutritional; endocrine; and metabolic disorders (3 sources)Body mass index (BMI) 50.0-59.9, adultChronicOther nutritional; endocrine; and metabolic disorders (3 sources)Obesity caused by energy imbalance; Translations: [Morbid (severe) obesity due to excess calories]12-67-1481CatjwllRnlsl nutritional; endocrine; and metabolic disorders (4 sources)Obesity, unspecified; Translations: [Obesity, unspecified]01-15-2024 ChronicOther screening for suspected conditions (not mental disorders or infectious disease) (2 sources)Imaging result abnormal; Translations: [Abnormal findings on diagnostic imaging of other specified body structures]ChronicOther screening for suspected conditions (not mental disorders or infectious disease) (11 sources)Encounter for screening mammogram for malignant neoplasm of breast; Translations: [Urine test negative]Onset: 07-12-2022 Resolved: 36-41-3484GwgffgpaBbtfy upper respiratory disease (2 sources)Allergic rhinitis; Translations: [Allergic rhinitis, unspecified] ChronicOther upper respiratory infections (14 sources)Acute maxillary sinusitis; Translations: [Acute maxillary sinusitis] Onset: 40-24-8943VhywkvtuXcqybg media and related conditions (7 sources)Eustachian tube salpingitis; Translations: [Unspecified Eustachian salpingitis, right ear]Onset: 392142-73-4948CzuwmawlOyincvahg; thrombophlebitis and thromboembolism (2 sources)Phlebitis and thrombophlebitis; Translations: [Phlebitis and thrombophlebitis of unspecified site]EpisodicResidual codes; unclassified (20 sources)Obstructive sleep apnea syndrome; Translations: [Obstructive sleep apnea (adult) (pediatric)]58-69-2502YxmerfzGehnstme codes; unclassified (13 sources)Obstructive sleep apnea (adult) (pediatric); Translations: [Obstructive sleep apnea (adult)(pediatric)]Onset: 05-67-9915SrewkczBismcpil codes; unclassified (2 sources)Hypersomnia; Translations: [Hypersomnia, unspecified]08-07-2024 ChronicResidual codes; unclassified (2 sources)Postprocedural state finding; Translations: [Other specified postprocedural states]EpisodicResidual codes; unclassified (2 sources)Immunization refused ; Translations: [Immunization not carried out because of patient refusal]EpisodicResidual codes; unclassified (2 sources)Pain; Translations: [Pain, unspecified]EpisodicResidual codes; unclassified (5 sources)Insomnia; Translations: [Insomnia, unspecified]51-89-7059Bkjdxiwx Residual codes; unclassified (3 sources)Insomnia, unspecified; Translations: [Insomnia, unspecified] 59-85-8226KljvvtxhIdif and subcutaneous tissue infections (2 sources)Carbuncle of left lower limb; Translations: [Carbuncle of left lower limb]EpisodicSpondylosis; intervertebral disc disorders; other back problems (20 sources)Degeneration of cervical intervertebral disc; Translations: [Other cervical disc degeneration, unspecified cervical region]Onset: 62-26-3231Vuwgxii Spondylosis; intervertebral disc disorders; other back problems (12 sources)Pain in thoracic spine; Translations: [Low back pain]Onset: 603049-78-1621HkgkrjupDtqbapf and strains (18 sources)Sprain of ankle; Translations: [Ankle sprain]Onset: 11-26-2018 EpisodicThyroid disorders (3 sources)Subclinical hypothyroidism; Translations: [Other specified hypothyroidism]14-36-6747VqzrnnjDemba infection (6 sources)Herpesviral vesicular dermatitis; Translations: [Herpesviral vesicular dermatitis]Onset: 143854-56-4959CyzgvftnQywkj infection (2 sources)Disease caused by 2019-nCoV; Translations: [COVID-19] Past or Other Problems Problem ClassificationProblemDateDocumented DateEpisodic/Chronic Administrative/social admission (2 sources)Repeated prescription; Translations: [Encounter for issue of repeat prescription]Onset: 77-76-1056KmrfmhspUqeyzdmyanezx and procreative management (2 sources)Sterilization procedure; Translations: [Encounter for sterilization] Resolved: 12-98-3712VmtfdablQlqmonvr mellitus without complication (2 sources)Hyperglycemia; Translations: [Hyperglycemia, unspecified] Resolved: 71-78-9410HjifwvgkOybrjszw; including migraine (2 sources)Headache; Translations: [Headache, unspecified]Onset: 02-28-2014 EpisodicNonspecific chest pain (2 sources)Chest pain; Translations: [Other chest pain]Onset: 54-29-0823Okznrkxv Other aftercare (2 sources)Therapeutic drug level - finding; Translations: [Encounter for therapeutic drug level monitoring]Onset: 87-29-6971YmhmsnwzAtreg bone disease and musculoskeletal deformities (2 sources)Chondromalacia; Translations: [Chondromalacia, right knee]Onset: 89-26-0009GslazhcuLgwsd complications of ; puerperium affecting management of mother (2 sources)Disorder of ; Translations: [Unspecified disorder of , condition or complication]Onset: 56-62-9704YdlywjnqLsvjc connective tissue disease (2 sources)Pain in right foot; Translations: [Pain in right foot]Onset: 72-09-3448YrqljiiaIsaov connective tissue disease (2 sources)Enthesopathy of ankle AND/OR tarsus; Translations: [Metatarsalgia, unspecified foot]Onset: 76-70-8727LhbbiidoEgrzm eye disorders (2 sources)Conjunctival xerosis; Translations: [Conjunctival xerosis, unspecified, unspecified eye]Onset: 20-07-2482HiwwbfxdFdkns lower respiratory disease (4 sources)Dyspnea; Translations: [Shortness of breath]Onset: 44-26-5777Jlmwzhwo Other non-traumatic joint disorders (2 sources)Arthralgia of the lower leg; Translations: [Pain in joint, lower leg] Onset: 10-92-3215TdfzjckdJxosl non-traumatic joint disorders (2 sources)Arthralgia of the pelvic region and thigh; Translations: [Pain in joint, pelvic region and thigh]Onset: 06-22-9057DfplxzoeKfoly non-traumatic joint disorders (4 sources)Shoulder joint pain; Translations: [Pain in unspecified shoulder] Onset: 37-39-2059LfhghgdzBectl non-traumatic joint disorders (2 sources)Pain in wrist; Translations: [Pain in unspecified wrist]Onset: 93-11-6433OajsbpmgKdpac skin disorders (2 sources)Sebaceous cyst; Translations: [Sebaceous cyst]Onset: 08-03-2015 EpisodicResidual codes; unclassified (1 source)Family history of malignant neoplasm of breast; Translations: [FAMILY HX MALIG NEOPLASM OF BREAST]Onset: 54-69-6189VyvoittoLexeanrg codes; unclassified (1 source)Family history of malignant neoplasm of ovary; Translations: [FAM HX MALIGNANT NEOPLASM OVARY]Onset: 08-03-4224VdglyczzEywnelmb codes; unclassified (1 source)Family history of malignant neoplasm of bladder; Translations: [FAM HX MALIGNANT NEOPLASM BLADDER]Onset: 26-41-8203ZeprhbhnLkezybkp codes; unclassified (2 sources)Edema; Translations: [Edema]Onset: 44-81-0845YntlrsjaVqgmxzcjh and history of mental health and substance abuse codes (2 sources)History of tobacco use; Translations: [Personal history of tobacco use, presenting hazards to health]Onset: 85-79-1284Xhloldyy Results Test NameValueInterpretationReference RangeFacilityMR lumbar spine wo conon 11-86-6260OD lumbar spine wo [facility] [place] [address] [place] [address] MRI Report Signed Patient: Jing Gray MR#: [id number] 1 : 1975 Acct:[id number] Age/Sex: 49 / F ADM Date: 03/12/25 Loc: [facility] Room: Type: [facility] Attending Dr: Jeny FELIZ Copies to: TRINI Rhodes Ordering Provider: TRINI Rhodes Date of Service: 03/12/25 MR/MR lumbar spine wo con: LUMBAR RADICULOPATHY,LUMBAR DISCOGENIC CHANGES MRI lumbar spine performed without contrast INDICATION: Lumbar radiculopathy COMPARISON: None FINDINGS: Examination was performed on an open magnet system with less than optimal tkohdh-bf-xauoe ratio which does degrade evaluation. Lumbar vertebral [...] Mccabe M.D. 03/12/2025 10:38 AM Dictation Location: [facility]-- Transcribed By: [facility] 03/12/25 1038 Dictated By: Edgardo Mccabe MD 03/12/25 1030 Signed By: 03/12/25 1038[facility] GroupMagnetic resonance imaging reportOrdered By: Edgardo Mccabe on 60-58-0425Ugxca reportCHERRINGTON [facility] [place] [address] [place] [address] MRI Report Signed Patient: Jing Gray MR#: [id number] : 1975 Acct:[id number] Age/Sex: 49 / F ADM Date: 5 Loc: [facility] Room: Type: [facility] Attending Dr: Jeny FELIZ Copies to: TRINI Rhodes~ Ordering Provider: TRINI Rhodes Date of Service: 03/12/25 MR/MR lumbar spine wo con: LUMBAR RADICULOPATHY,LUMBAR DISCOGENIC CHANGES MRI lumbar spine performed without contrast INDICATION: Lumbar radiculopathy COMPARISON: None FINDINGS: Examination was performed on an open magnet system with less than optimal mmkozt-ht-duqxmsemws which does degrade evaluation. Lumbar vertebral heights, alignment and bone marrow signal is unremarkable. Mild intervertebral space narrowing L5-S1 with associated loss of intervertebraldisc space signal. There is minimal loss ofsignal L3-4 without loss of space height. Conus medullaris terminates normally mid L2. Paraspinal soft tissues are unremarkable. T12-L3: Mild facet arthropathy. No significant disc disease, central canal or neural from narrowingidentified. L3-4: Disc desiccation. Questionable left foraminal zone [...] right-sided moderate left-sided neural from narrowing. Correlate withpossible left L5-S1 radiculopathy. MR/MR lumbar spine wo con IMPRESSION: Multilevel predominantly posterior element degenerative changes L3-S1 greatest L5-S1. Subarticular and foraminal encroachment greatest left L5-S1. Correlate with possible left L5-S1 radiculopathy. Question small left foraminal zone bulge contacting the exiting left L3 nerve root. Impression dictated by: Edgardo Mccabe M.D. 03/12/2025 10:38 AM Dictation Location: [place] [address] Transcribed By: [facility] 03/12/25 1038 Dictated By: Edgardo Mccabe MD 03/12/25 1030 Signed By: 03/12/25 1038 [facility] Work Phone: Laboratory - Chemistry and Chemistry - challengeon 05-52-7370Lfxx T4 [Mass/Vol]0.95 ng/dL0.76-1.46[facility] TSH Qn4.726 m[IU]/LHigh0.358-3.740[facility], IncBasophils Auto (Bld) [#/Vol]on 07-04-0630Fwkcsyphe (Bld) [#/Vol]Automated basophil count 0.0-0.1FTrinity Health System East CampusBasophils/100 WBC Auto (Bld)on 57-52-9385Yblugsdiy/100 WBC (Bld)Automated basophil %0.2-2.0[facility], IncCholesterol in LDL Calc [Mass/Vol]on 68-31-6396Faacddgappe in LDL [Mass/Vol]Cholesterol in LDL [Mass/volume] in Serum or Plasma by calculation [facility], IncComment on above:<100 mg/dl JGIDSSC181-885 mg/dl NEAR OR ABOVE JNXGXBH655-502 mg/dl BORDERLINE MGVT419-931 mg/dl HIGH>190 mg/dl VERY HIGHCholesterol in VLDL Calc [Mass/Vol]on 28-34-4932Pcemejobblm in VLDL [Mass/Vol]Cholesterol in VLDL [Mass/volume] in Serum or Plasma by calculationSelect [facility]ty [facility], IncEosinophils/100 WBC Auto (Bld)on 30-48-0472Hkmcgselhaf/100 WBC (Bld)Automated eosinophil %0.9-7.0[facility], IncErythrocyte distribution width Auto (RBC) [Ratio]on 46-17-3012Gscsrbhvkqw distribution width (RBC) [Ratio]Erythrocyte distribution width [Ratio] by Automated count11.0-15.0[facility] Estimated glomerular filtration rate (GFR) non- Americanon 10-09-2024 GFR/1.73 sq M.predicted among non-blacks MDRD (S/P/Bld) [Vol rate/Area]Estimated glomerular filtration rate (GFR) non->=60 mL/min/1.73m 2 [facility], IncGlobulin Calc (S) [Mass/Vol]on 10-09-2024 Globulin (S) [Mass/Vol]Serum globulin measurement by calculation (mass/volume) [facility], IncGlucose mean value [Mass/volume] in Blood Estimated from glycated hemoglobinon 02-72-6717Jtsombn glucose Estimated from glycated hemoglobin (Bld) [Mass/Vol]Glucose mean value [Mass/volume] in Blood Estimated from glycated hemoglobinSelect Medical Specialty Hospital - [facility], IncHematocrit Auto (Bld) [Volume fraction]on 34-45-5818Jhpwffxweu (Bld) [Volume fraction] Hematocrit [Volume Fraction] of Blood by Automated count36.0-48.0[facility], IncHemoglobin A1c percentageon 47-98-4521HrT2e (Bld) [Mass fraction]Hemoglobin A1c percentageHigh4.5-6.2FTrinity Health System East Campus Comment on above:ADA RECOMMENDED LIMIT 4.0 - 6.0ADA THERAPEUTIC TARGET < 7.0ACTION SUGGESTED> 7.0Hemoglobin [Mass/volume] in Bloodon 86-77-9109Tfxqgdlbix (Bld) [Mass/Vol]Hemoglobin [Mass/volume] in Blood12.0-16.0[facility], IncLaboratory - Chemistry and Chemistry - challengeon 10-09-2024 Albumin [Mass/Vol]3.9 g/dL3.4-5.0[facility], IncALP [Catalytic activity/Vol]98 U/U41-957DpstmlxgySelect Medical Specialty [facility], IncALT [Catalytic activity/Vol]22 U/U01-22LioyjtvdeSelect Medical Specialty Hospital [facility], IncAST [Catalytic activity/Vol]17 U/D77-00BahjkguwgSelect Medical Specialty Hospital [facility], IncBilirubin [Mass/Vol]0.9 mg/dL0.2-1.0[facility], IncCalcium [Mass/Vol]9.6 mg/dL 8.5-10.1FTrinity Health System East CampusChloride [Moles/Vol]103 mmol/L98-107 [facility], IncCholesterol [Mass/Vol]185 mg/dL<=200[facility], IncCholesterol in HDL [Mass/Vol]80 mg/jUJysn25-17BmptcokizSelect Medical Specialty Hospital [facility], IncComment on above:> or =60 mg/dl - LOW CARDIOVASCULAR RISK<40 mg/dl - HIGH CARDIOVASCULAR RISKCO2 [Moles/Vol]27.6 mmol/L21.0-32.0 [facility], IncCreatinine [Mass/Vol]0.84 mg/dL0.55-1.02 [facility], IncGFR/1.73 sq M.predicted MDRD (S/P/Bld) [Vol rate/Area]mL/min/{1.73_m2}>=60 mL/min/1.73m 2FTrinity Health System East Campus Glucose [Mass/Vol]156 mg/vMJenm17-042HgtqyihmxSelect Medical Specialty Hospital [facility], IncPotassium [Moles/Vol]4.3 mmol/L3.5-5.1FTrinity Health System East CampusProtein [Mass/Vol] 7.7 g/dL6.4-8.2FAdams County Hospitalodium [Moles/Vol]140 mmol/L 136-145[facility], IncTriglyceride [Mass/Vol]68 mg/dL<=150 [facility], IncTSH Qn4.409 m[IU]/LHigh0.358-3.740[facility], IncUrea nitrogen [Mass/Vol]11.0 mg/dL7.0-18.0[facility], IncUrea nitrogen/Creatinine [Mass ratio]13.1 mg/mgSelect Medical Specialty Hospital [facility], IncLaboratory - Hematology and Cell countson 10-09-2024 Immature granulocytes/100 WBC (Bld)0.5 %0.0-0.5FTrinity Health System East Campus Leukocytes [#/volume] corrected for nucleated erythrocytes in Blood by Automated counon 73-76-0422PLT corrected for nucl RBC Auto (Bld) [#/Vol]Leukocytes [#/volume] corrected for nucleated erythrocytes in Blood by Automated coun 4.0-11.0[facility], IncLymphocytes Auto (Bld) [#/Vol]on 74-52-3660Cluuvajnlio (Bld) [#/Vol]Lymphocytes [#/volume] in Blood by Automated count1.2-3.8[facility], IncLymphocytes/100 WBC Auto (Bld)on 35-74-4733Dchptklaszg/100 WBC (Bld)Lymphocytes/100 leukocytes in Blood by Automated count20.5-60.0[facility] Hospital [facility] ColumbusH Auto (RBC) [Entitic mass]on 06-86-4523QWS (RBC) [Entitic mass]MCH [Entitic mass] by Automated count 26.7-34.0[facility], IncMCHC Auto (RBC) [Mass/Vol]on 64-94-1548HJMQ (RBC) [Mass/Vol]MCHC [Mass/volume] by Automated count29.9-35.2 [facility], IncMCV Auto (RBC) [Entitic vol]on 69-86-8919ODL (RBC) [Entitic vol]MCV [Entitic volume] by Automated count81.0-99.0[facility], IncMicroalbumin [Mass/volume] in Urineon 18-67-1849Rymdwtc DL <= 20 mg/L (U) [Mass/Vol]Microalbumin [Mass/volume] in Urine<=30.0[facility], IncMonocytes Auto (Bld) [#/Vol]on 80-10-4419Vmmultxny (Bld) [#/Vol]Automated blood monocyte countHigh0.3-0.8[facility], IncMonocytes/100 WBC Auto (Bld)on 58-18-0874Jpzajrarx/100 WBC (Bld)Automated monocyte %1.7-12.0[facility], IncNeutrophils Auto (Bld) [#/Vol]on 74-34-3441Mdhtsbndota (Bld) [#/Vol]Neutrophils [#/volume] in Blood by Automated countHigh1.4-6.5FTrinity Health System East CampusNeutrophils/100 WBC Auto (Bld)on 77-07-4725Nulxpliixkp/100 WBC (Bld)Automated neutrophil %43.0-75.0 [facility], IncNo Panel Informationon 59-62-8240Zfxhwchyhwx # (Auto)0.3 10 3/uL0.0-0.7FTrinity Health System East CampusImmature Granulocyte # (Auto)0.05 10 3/uLHigh0.00-0.03[facility], IncProlactin37.7 ng/mLAbnormal4.8-33.4FTrinity Health System East CampusComment on above:Performed at: [facility] [place] [id number] Director: Joshua Jordan PhD, Phone: [phone] Random Cdrjstcrpq864.10 mg/dL 20.00-300.00[facility], IncPlatelet mean volume Auto (Bld) [Entitic vol]on 46-01-2620Mezxzwnu mean volume (Bld) [Entitic vol]Platelet mean volume [Entitic volume] in Blood by Automated countLow9.5-13.5FTrinity Health System East CampusPlatelets Auto (Bld) [#/Vol]on 11-28-3990Yrgyxjkmp (Bld) [#/Vol] Platelets [#/volume] in Blood by Automated macma297-171HalkjkkdqSelect Medical Specialty Hospital [facility], IncRBC Auto (Bld) [#/Vol]on 68-57-3640GCQ (Bld) [#/Vol]Erythrocytes [#/volume] in Blood by Automated count4.20-5.40[facility] Serum or plasma albumin/globulin mass ratioon 58-46-1624Hekmxax/Globulin [Mass ratio]Serum or plasma albumin/globulin mass ratioOhioHealth Riverside Methodist Hospitalerum or plasma anion gap determinationon 38-60-4532Lyijb gap [Moles/Vol] Serum or plasma anion gap determinationOhioHealth Riverside Methodist Hospitalerum or plasma total cholesterol/high density lipoprotein (HDL) cholesterol mass erika 90-21-3917Pvedlomngfv.total/Cholesterol in HDL [Mass ratio]Serum or plasma total cholesterol/high density lipoprotein (HDL) cholesterol mass ratSelect Medical Specialty Hospital - [facility], IncComment on above:3.3 - 4.4 LOW RISK4.4 - 7.1 AVERAGE RISK7.1 - 11.0 MODERATE RISK>11.0 HIGH RISKUrine microalbumin/creatinine mass ratioon 94-78-4605Oyrnnyk/Creatinine DL <= 20 mg/L (U) [Mass ratio]Urine microalbumin/creatinine mass ratio0.0-29.9[facility] Comment on above:NO MICROALBUMINURIA 0-29 MG/GCLINICAL MICROALBUMINURIA 30-300 MG/GMACROALBUMINURIA >300 MG/GXR hand RT min 3V*on 64-29-0621QF hand RT min 3V* [facility] [employer] Other XR hand RT min 3V*[facility] [employer] Other XR hand RT min 3V*[address] [place] [address] [employer] Other XR hand RT min 3V*[facility] [place] [address]TiiypMadigan Army Medical Center [employer] Other XR hand RT min 3V*[facility] [employer] Other XR hand RT min 3V*[facility] [employer] Other xr hand RT min 3V*Patient: Jing Gray MR#: [id number] [employer] Other XR hand RT min 3V*[address] [place] [address] [employer] Other xr hand RT min 3V*: 1975 Acct:[id number] [employer] Other XR hand RT min 3V*Age/Sex: 47 / F ADM Date: 01/11/23 [place] [employer] Other XR hand RT min 3V*Loc: XDUCLY Room: Type: [facility] [employer] Other XR hand RT min 3V*Attending Dr: Angélica FELIZ [place] [employer] Other XR hand RT min 3V*Copies to: TRINI Alvarado [employer] Other XR hand RT min 3V*Ordering Provider[facility]Bo[facility] [employer] Other XR hand RT min 3V*Date of Service: 01/11/23[place] [employer] Other XR hand RT min 3V* XR/XR hand RT min 3V*: RIGHT HAND INJURYConverged Access Other XR hand RT min 3V*3 views right hand plain filmConverged Access Other XR hand RT min 3V*COMPARISON: Loud[employer] Other XR hand RT min 3V*HISTORY: Fourth and fifth metacarpal injuryRockland [employer] Other XR hand RT min 3V*ACUTE FINDINGS: [place] Other XR hand RT min 3V*DEGENERATIVE CHANGE: Unremarkable [employer]way[employer] Other XR hand RT min 3V*SOFT TISSUE FINDINGS: Unremarkable [place] Other XR hand RT min 3V*JOINT EFFUSION: [place] Other XR hand RT min 3V*POSTOP CHANGES: [place] Other XR hand RT min 3V*BONY MINERALIZATION: AdequateRockland [employer] Other XR hand RT min 3V* XR/XR hand RT min 3V*[place] [employer] Other XR hand RT min 3V*IMPRESSION: No acute findingsMadigan Army Medical Center [employer] Other XR hand RT min 3V*Impression dictated by: Blake Marino M.D.01/11/2023 6:08 PMNBur[facility] Hospital [employer] Other XR hand RT min 3V*Dictation Location: [id number] [employer] Other XR hand RT min 3V*Transcribed By: PWS 01/11/[address] [place] [address] [employer] Other XR hand RT min 3V*Dictated By: Blake Marino DO 01/11/[address] [place] [address] [employer] Other XR hand RT min 3V*Signed By:Qwaya Other XR hand RT min 3V*01/11/[address] [place] [address] [employer] Other PROLACTINon 31-06-5280Iprdwuxll24.5 ng/mLCritically high4.8-23.3[facility] Medical CenterComment on above:Performed By: #### PROLAC #### [facility] [address] [place] [address] [address] Digna Reyna AUTO DIFFon 43-51-6277SZVK #0.1 103/ulNormal0.0-0.1Samaritan HospitalComment on above:Performed By: #### CBC ####[facility] [address] [place] [address]Dr.Yilan ThomasBasophils/100 WBC (Bld)0.8 %Normal0.2-2.0Samaritan HospitalComment on above:Performed By: #### CBC ####[facility] [address] [place], [place] [address]Dr.Digna ChangEO #0.5 103/ulNormal0.0-0.7The [facility] CenterComment on above:Performed By: #### CBC ####[facility] Qwtrxgpttt58[address] [place], [place] [address]Dr.Digna ChangEosinophils/100 WBC (Bld)5.0 %Normal 0.9-7.0The [facility] CenterComment on above:Performed By: #### CBC ####[facility] Otdcxdstmr240[address] [place], [place] [address]Dr.Anajs Thomas Erythrocyte distribution width (RBC) [Ratio]13.0 %Ysqccg31.0-15.0The [facility] CenterComment on above:Performed By: #### CBC ####[facility] Rzvwcfqaab98[address] [place], [place] [address]Dr.Anajs ChangHematocrit (Bld) [Volume fraction]44.6 %Stcnmz45.0-48.0The [facility] CenterComment on above:Performed By: #### CBC ####[facility] Eegetkyfga25[address] [place], [place] [address]Dr.Anajs ChangHemoglobin (Bld) [Mass/Vol]14.4 g/dL Avqkpl63.0-16.0The [facility] CenterComment on above:Performed By: #### CBC ####[facility] Uirajojfrc[address] [place], [place] [address]Dr. Anajs ChangIG #0.05 10e3/ulCritically high0.00-0.03The [facility] CenterComment on above:Performed By: #### CBC ####[facility] Ghzojsgoef455[address] [place], [place] [address]Dr.Anajs ChangIG %0.5 %Normal0.0-0.5The [facility] CenterComment on above:Performed By: #### CBC ####[facility] Mnwkebwpsj[address] [place], [place] [address]Dr.Anajs ChangLYMPH #2.3 103/ulNormal1.2-3.8The [facility] CenterComment on above:Performed By: #### CBC ####[facility] [address] [place] [address]Dr. Digna ThomasLymphocytes/100 WBC (Bld)23.0 %Kutueo75.5-60.0The [facility] Comment on above:Performed By: #### CBC ####[facility] [address]tfslu[address] [place] [address]Dr.Digna ThomasMANUAL DIFF REQNONormalThe [facility] CenterComment on above:Performed By: #### CBC ####[facility] Nazbigupdc7[address] [place], [place] [address]Dr.Anajs ThomasMCH (RBC) [Entitic mass]28.3 kuLziyew43.7-34.0The [facility] CenterComment on above: Performed By: #### CBC ####[facility] Blgqbfqnvq217[address] [place], [place] [address]Dr.Digna ThomasMCHC (RBC) [Mass/Vol]32.3 g/dLNormal 29.9-35.2The [facility] CenterComment on above:Performed By: #### CBC ####[facility] Uurocznlfc92[address] [place], [place] [address]Dr. Anajs ThomasMCV (RBC) [Entitic vol]87.8 iFVcwbgh94.0-99.0The [facility] Comment on above:Performed By: #### CBC ####[facility] Dhkknfakug[address] [place], [place] [address]Dr.Digna WilliamMONO #0.8 103/ulNormal0.3-0.8 The [facility] CenterComment on above:Performed By: #### CBC ####[facility] Jxcgprvwdm[address] [place], [place] [address]Dr.Digna Thomas Monocytes/100 WBC (Bld)7.9 %Normal1.7-12.0The [facility] CenterComment on above: Performed By: #### CBC ####[facility] Eppyoyrwpv[address] [place], [place] [address]Dr.Digna ThomasNEUT #6.3 103/ulNormal1.4-6.5The [facility] CenterComment on above:Performed By: #### CBC ####[facility] [address] [place] [address]Dr.Digna ThomasNeutrophils/100 WBC (Bld)62.8 %Ksfxfg58.0-75.0[facility] on above:Performed By: #### CBC ####[facility] [address] [place] [address]Dr.Digna ThomasPlatelet mean volume (Bld) [Entitic vol]9.9 fLNormal9.5-13.5 The [facility] CenterComment on above:Performed By: #### CBC ####[facility] [address]kspummn[address] [place] [address]Dr.Digna BvhjfARM076 103/bgDipltg062-231Ykq [facility] on above:Performed By: #### CBC ####[facility] Pbkoslmgmt[address] [place] [address]Dr. Digna ThomasRBC5.08 106/ulNormal4.20-5.40The [facility] CenterComment on above: Performed By: #### CBC ####[facility] L[address]imt[address] [place] [address]Dr.Digna ThomasWBC10.0 103/ulNormal4.0-11.0The [facility] CenterComment on above:Performed By: #### CBC ####[facility] [address]qkj[address] [place] [address]Dr.Digna ThomasLIPID PROFILEon 22-14-0223NSHN-HDL RATIO [facility] Washington TownshipComment on above:Result Comment: 3.3 - 4.4 LOW RISK 4.4 - 7.1 AVERAGE RISK 7.1 - 11.0 MODERATE RISK >11.0 HIGH RISKPerformed By: #### BMP, TSH, LIPID #### [facility] [address] [address] [address] Digna ThomasCholesterol [Mass/Vol]179 mg/dLNormal<=200The [facility] Comment on above:Performed By: #### BMP, TSH, LIPID #### [facility] [address] [address] [address] Digna ThomasCholesterol in HDL [Mass/Vol]55 mg/zZSvmnfz17-44Erf [facility] on above:Performed By: #### BMP, TSH, LIPID #### [facility] [address] [address] [address] Digna ThomasCholesterol in LDL [Mass/Vol]103.8 mg/dLNoTrumbull Memorial HospitalComment on above:Performed By: #### BMP, TSH, LIPID #### [facility] [address] [address] [address] Digna Lopezesterjosue.total/Cholesterol in HDL [Mass ratio]3.3 {ratio} NormalThe [facility] CenterComment on above:Performed By: #### BMP, TSH, LIPID #### [facility] [address] [place] [address] Dr. Digna Bernal NORMAL> or = 60 mg/dl - LOW CARDIOVASCULAR RISK <40 mg/dl - HIGH CARDIOVASCULAR RISKUK HealthcareComment on above:Performed By: #### BMP, TSH, LIPID #### [facility] [address] [address] [address] Digna Elam CALC NORMALSEE BELOWUK HealthcareComment on above:Result Comment: <100 mg/dl OPTIMAL 100 - 129 mg/dl NEAR OR ABOVE OPTIMAL 130 - 159 mg/dl BORDERLINE HIGH 160 - 189 mg/dl HIGH >190 mg/dl VERY HIGH Performed By: #### BMP, TSH, LIPID #### [facility] [address] [place] [address] Dr. Digna ThomasTriglyceride [Mass/Vol]101 mg/dLNormal<=150[facility] Comment on above:Performed By: #### BMP, TSH, LIPID #### [facility] [address] [place] [address] Dr. Digna ThomasVLDL CALC20.2 mg/dLNoTrumbull Memorial HospitalComment on above: Performed By: #### BMP, TSH, LIPID #### [facility] [address] [address] [address] Digna ThomasPROF CHEM 8 (BAS METB)on 74-42-1276Jqyiw gap [Moles/Vol]13.3 mmol/LNormalThe [facility] CenterComment on above:Performed By: #### BMP, TSH, LIPID #### [facility] [address] [address] [address] Digna ThomasCalcium [Mass/Vol]9.4 mg/dLNormal8.5-10.1The [facility] Comment on above:Performed By: #### BMP, TSH, LIPID #### [facility] [address] [address] [address] Digna ThomasChloride [Moles/Vol]104 mmol/YPmgynu34-852Lgd [facility] Comment on above:Performed By: #### BMP, TSH, LIPID #### [facility] [address] [address] [address] Digna ThomasCO2 [Moles/Vol]27.1 mmol/QZktwvo45.0-32.0[facility] Comment on above:Performed By: #### BMP, TSH, LIPID #### [facility] [address] [address] [address] Digna ThomasCreatinine [Mass/Vol]0.71 mg/dLNormal0.55-1.02The [facility] CenterComment on above:Performed By: #### BMP, TSH, LIPID #### [facility] [address] [address] [address] Digna MarieGFR-AF VATICAN CITIZEN>60Normal>=60The [facility] CenterComment on above:Performed By: #### BMP, TSH, LIPID #### [facility] [address] [address] [address] Digna MarieGFR-NON AF [place] CITIZEN>60Normal>=60The [facility] CenterComment on above:Performed By: #### BMP, TSH, LIPID #### [facility] [address] [address] [address] Digna ThomasGlucose [Mass/Vol]163 mg/dLCritically pepd89-514Qjj [facility] CenterComment on above:Performed By: #### BMP, TSH, LIPID #### [facility] [address] [place] [address] Dr. Digna ThomasPotassium [Moles/Vol]4.4 mmol/LNormal3.5-5.1[facility] Comment on above:Performed By: #### BMP, TSH, LIPID #### [facility] [address] [place] [address] Dr. Digna ThomasSodium [Moles/Vol]140 mmol/WGdegsn369-525MekSamaritan Hospital Comment on above:Performed By: #### BMP, TSH, LIPID #### [facility] [address] [place] [address] Dr. Digna ThomasUrea nitrogen [Mass/Vol]15.0 mg/dLNormal7.0-18.0The [facility] CenterComment on above:Performed By: #### BMP, TSH, LIPID #### [facility] [address] [place] [address] Dr. Digna Higuera nitrogen/Creatinine [Mass ratio]21.1 mg/mgNormalThe [facility] CenterComment on above:Performed By: #### BMP, TSH, LIPID #### [facility] [address] [place] [address] Dr. Digna Walker 02-90-0616FVD7.955 uIU/mLCritically high0.358-3.740[facility] HospitalComment on above:Performed By: #### BMP, TSH, LIPID #### [facility] [address] [place] [address] Dr. Digna ThomasXR CSPINE MIN 4 VIEWSon 25-07-5067BI CSPINE MIN 4 VIEWS EXAMINATION: XR CSPINE MIN 4 VIEWS HISTORY: Cervical spondylosis COMPARISON: No relevant comparison available. FINDINGS: BONES: No significant spondylosis, scoliosis, fracture, or visible bony lesion. DISC SPACES: Minimal narrowing at C6-7. PARASPINOUS: Negative. No paraspinous abnormality is seen. OTHER: Negative. IMPRESSION: 1. Suspect C6-7 mild degenerative disc disease. Electronically authenticated by: FELIPE TRINH Date: 2022-11-04 08:02UK HealthcareGLYCOHEMOGLOBIN A1Con [id number] RECOMMENDATIONSEE BELOW NormalThe [facility] CenterCommclaren caro region on above:Result Comment: ADA RECOMMENDED LIMIT 4.0 - 6.0 ADA THERAPEUTIC TARGET < 7.0 ACTION SUGGESTED > 7.0Performed By: #### A1C ####[facility] [address] [place] [address]Dr.Yilan ThomasGlucose [Mass/Vol]166 mg/dLNoTrumbull Memorial HospitalComment on above:Performed By: #### A1C ####[facility] [address]btvfyjr[address] [place], [place] [address]DrAnastasiia ThomasHbA1c (Bld) [Mass fraction]7.4 % Critically high4.5-6.2The [facility] CenterComment on above:Performed By: #### A1C ####[facility] [address]iehb[address] [place], [place] [address]DrNile ThomasPROLACTINon 86-25-2613Xikrlbbax94.0 ng/mLCritically high4.8-23.3The [facility] CenterComment on above:Performed By: #### PROLAC #### [facility] [address] [address] [address] Digna Reyna AUTO DIFFon 29-53-1390LJVH #0.1 103/ulNormal0.0-0.1The [facility] CenterComment on above:Performed By: #### CBC ####[facility] E[address]bszscax[address] [place], [place] [address]DrAnastasiia ThomasBasophils/100 WBC (Bld)0.8 %Normal0.2-2.0The [facility] CenterComment on above:Performed By: #### CBC ####[facility] Ertoilxjpz[address] [place], [place] [address]DrAnastasiia ChangEO #0.7 103/ulNormal0.0-0.7The [facility] CenterComment on above:Performed By: #### CBC ####[facility] Fzmivwzdmm[address] [place] [address] ChangEosinophils/100 WBC (Bld)5.8 %Normal 0.9-7.0The [facility] CenterComment on above:Performed By: #### CBC ####[facility] Fkokaqrtja206[address] [place], [place] [address]Dr.Digna Thomas Erythrocyte distribution width (RBC) [Ratio]12.7 %Nwddxe37.0-15.0The [facility] CenterComment on above:Performed By: #### CBC ####[facility] Mgkpnikpeo9135[address] [place], [place] [address]Dr.Digna ThomasHematocrit (Bld) [Volume fraction]45.4 %Uybqnq12.0-48.0The [facility] CenterComment on above:Performed By: #### CBC ####[facility] Tinkdvlhfx[address] [place], [place] [address]Dr.Digna ChangHemoglobin (Bld) [Mass/Vol]15.3 g/dL Dwdbjh66.0-16.0The [facility] CenterComment on above:Performed By: #### CBC ####[facility] Pkshmbnpdx[address] [place], [place] [address]Dr. Digna ChangIG #0.04 10e3/ulCritically high0.00-0.03The [facility] CenterComment on above:Performed By: #### CBC ####[facility] Xhsxbvgpbo46[address] [place], [place] [address]Dr.Digna ChangIG %0.3 %Normal0.0-0.5The [facility] CenterComment on above:Performed By: #### CBC ####[facility] Q[address]wzksivk[address] [place], [place] [address]Dr.Digna ChangLYMPH #3.3 103/ulNormal1.2-3.8The [facility] CenterComment on above:Performed By: #### CBC ####[facility] Wtaiiradhi[address] [place], [place] [address]Dr. Digna ChangLymphocytes/100 WBC (Bld)28.1 %Ifgqzn95.5-60.0The [facility] Comment on above:Performed By: #### CBC ####[facility] [address] [place] [address]Dr.Digna ThomasMANUAL DIFF REQNONormalThe [facility] CenterComment on above:Performed By: #### CBC ####[facility] Mgerscwsnf[address] [place] [address]Dr.Digna ThomasH (RBC) [Entitic mass]29.2 xuCzxswt40.7-34.0The [facility] HospitalComment on above: Performed By: #### CBC ####[facility] Btcpjruftm[address] [place], [place] [address]Dr.Digna ThomasHC (RBC) [Mass/Vol]33.7 g/dLNormal 29.9-35.2The [facility] CenterComment on above:Performed By: #### CBC ####[facility] Cbryjnckmj4216[address] [place], [place] [address]Dr. Anajs WilliamV (RBC) [Entitic vol]86.6 yAVsamce59.0-99.0The [facility] Comment on above:Performed By: #### CBC ####[facility] Vqulsiafts[address] [place], [place] [address]Dr.Digna ThomasMONO #0.8 103/ulNormal0.3-0.8 [facility] HospitalComment on above:Performed By: #### CBC ####[facility] Eewuejitdj69[address] [place], [place] [address]Dr.Digna Thomas Monocytes/100 WBC (Bld)6.4 %Normal1.7-12.0The [facility] CenterComment on above: Performed By: #### CBC ####[facility] Wbnbylvxma9827[address] [place], [place] [address]Dr.Digna WilliamNEUT #6.9 103/ulCritically high1.4-6.5 The [facility] CenterComment on above:Performed By: #### CBC ####[facility] Kxzpfktyor4[address] [place], [place] [address]Dr.Digna Thomas Neutrophils/100 WBC (Bld)58.6 %Janlxk74.0-75.0The [facility] HospitalComment on above:Performed By: #### CBC ####[facility] [address]xsjx[address] [place] [address]Dr.Digna ThomasPlatelet mean volume (Bld) [Entitic vol] 10.0 fLNormal9.5-13.5The [facility] CenterComment on above:Performed By: #### CBC ####[facility] Q[address]ys[address] [place] [address]Dr. Digna SqyuqBMH393 103/udAkebrv939-967Qpr [facility] CenterComment on above: Performed By: #### CBC ####[facility] Goptzrskth[address] [place], [place] [address]Dr.Digna ChangRBC5.24 106/ulNormal4.20-5.40The [facility] CenterComment on above:Performed By: #### CBC ####[facility] Axtcipcptg109[address] [place], [place] [address]Dr.Digna ThomasWBC11.8 103/ul Critically high4.0-11.0The [facility] CenterComment on above:Performed By: #### CBC ####[facility] Zgbnvklqtx684[address] [place], [place] [address]Dr. Digna ThomasGLYCOHEMOGLOBIN A1Con 21-13-4584MWN RECOMMENDATIONSEE BELOWUK HealthcareComment on above:Result Comment: ADA RECOMMENDED LIMIT 4.0 - 6.0 ADA THERAPEUTIC TARGET < 7.0 ACTION SUGGESTED > 7.0Performed By: #### A1C ####[facility] Lhsxfmbtuv[address] [place], [place] [address]Dr. Digna ThomasGlucose [Mass/Vol]183 mg/dLNoTrumbull Memorial HospitalCommclaren caro region on above:Performed By: #### A1C ####[facility] Ihjasdnmud164[address] [place], [place] [address]Dr.Digna ThomasHbA1c (Bld) [Mass fraction]8.0 % Critically high4.5-6.2The [facility] CenterComment on above:Performed By: #### A1C ####[facility] Pscedqcyib91[address] [place], [place] [address]Dr. Digna ThomasLIPID PROFILEon 77-22-5561GEAD-HDL RATIO NORMSEE Wilson HealthComment on above:Result Comment: 3.3 - 4.4 LOW RISK 4.4 - 7.1 AVERAGE RISK 7.1 - 11.0 MODERATE RISK >11.0 HIGH RISKPerformed By: #### BMP, LIPID, TSH ####[facility] [address] [place] [address]Dr. Digna ThomasCholesterol [Mass/Vol]161 mg/dLNormal<=200The [facility] CenterComment on above:Performed By: #### BMP, LIPID, TSH ####[facility] [address]aqwabj[address] [place] [address]Dr. Digna Thomas Cholesterol in HDL [Mass/Vol]51 mg/yGZkapbi74-74BhySamaritan HospitalCommclaren caro region on above:Performed By: #### BMP, LIPID, TSH ####[facility] Rbclrqsybc23[address] [place], [place] [address]Dr. Digna ThomasCholesterol in LDL [Mass/Vol] 86.2 mg/dLUK HealthcareCommclaren caro region on above:Performed By: #### BMP, LIPID, TSH ####[facility] Vvbukdpscz[address] [place], [place] [address]Dr. Digna ThomasCholesterol.total/Cholesterol in HDL [Mass ratio]3.2 {ratio} NormalSamaritan HospitalCommclaren caro region on above:Performed By: #### BMP, LIPID, TSH ####[facility] Crnielvohk[address] [place], [place] [address]Dr. Analan ChangHDL NORMAL> or = 60 mg/dl - LOW CARDIOVASCULAR RISK <40 mg/dl - HIGH CARDIOVASCULAR RISKUK HealthcareCommclaren caro region on above:Performed By: #### BMP, LIPID, TSH ####[facility] Gskihcknas[address] [place], [place] [address]Dr. Yilan ChangLDL CALC NORMALSEE Wilson HealthComment on above:Result Comment: <100 mg/dl OPTIMAL 100 - 129 mg/dl NEAR OR ABOVE OPTIMAL 130 - 159 mg/dl BORDERLINE HIGH 160 - 189 mg/dl HIGH >190 mg/dl VERY HIGHPerformed By: #### BMP, LIPID, TSH ####[facility] [address] [place], [place] [address]Gg. Digna ThomasTriglyceride [Mass/Vol]119 mg/dLNormal<=150The [facility] CenterComment on above:Performed By: #### BMP, LIPID, TSH ####[facility] [address]fzqep[address] [place], [place] [address]Hk. Digna ThomasVLDL CALC23.8 mg/dLNormalThe [facility] CenterComment on above:Performed By: #### BMP, LIPID, TSH ####[facility] X[address]whmysyb[address] [place], [place] [address]Xu. Digna ChangMG MAMM SCREEN 3D JANE CADon 24-11-3486TX MAMM SCREEN 3D JANE CADPatient: JING GRAY Exam Date: 07/11/2022 : 1975 Gender:F Ordering : DR KELECHI GALVAN D.O. Admission #: [id number] Family : Order #: [id number] CLICK HERE TO VIEW EXAM RADIOLOGY REPORT [...] bladder cancer at age 51. LOCATION: [facility] BREAST COMPOSITION: Scattered areas fibroglandular [...] by: Angela Cagle MD on 07/11/2022 at 10:14[facility] MICROALBUMIN, RAND URon 40-23-4483qFYV19.1 mg/LNormal<=30.0[facility] Comment on above:Performed By: #### MALBR #### [facility] [address] [address] [address] Digna ThomasPROF CHEM 8 (BAS METB)on 85-53-1341Msstc gap [Moles/Vol]10.6 mmol/LNormalThe [facility] CenterComment on above:Performed By: #### BMP, LIPID, TSH ####[facility] [address] [place] [address]Dr. Yilan ChangCalcium [Mass/Vol]9.3 mg/dLNormal8.5-10.1The [facility] CenterComment on above:Performed By: #### BMP, LIPID, TSH ####[facility] [address]ukmx[address] [place] [address]Dr. Yilan Thomas Chloride [Moles/Vol]99 mmol/WQrzwrb50-496Ics [facility] CenterComment on above: Performed By: #### BMP, LIPID, TSH ####[facility] [address]intknew[address] [place] [address]Dr. Yilan ChangCO2 [Moles/Vol]28.3 mmol/LNormal 21.0-32.0The [facility] CenterComment on above:Performed By: #### BMP, LIPID, TSH ####[facility] [address]runbpkd[address] [place] [address]Dr. Yilan ChangCreatinine [Mass/Vol]0.74 mg/dLNormal0.55-1.02The [facility] Comment on above:Performed By: #### BMP, LIPID, TSH ####[facility] [address]axced[address] [place] [address]Dr. Yilan ChangEGFR-AF VATICAN CITIZEN>60Normal>=60The [facility] CenterComment on above:Performed By: #### BMP, LIPID, TSH ####[facility] [address]ejkl[address] [place] [address]Dr. Yilan ChangEGFR-NON AF [place] CITIZEN>60Normal>=60The [facility] Comment on above:Performed By: #### BMP, LIPID, TSH ####[facility] X[address]yljfw[address] [place] [address]Dr. Yilan ChangGlucose [Mass/Vol]190 mg/dLCritically zren24-391Wfr [facility] CenterComment on above: Performed By: #### BMP, LIPID, TSH ####[facility] [address]nefskphb[address] [place] [address]Dr. Yilan ChangPotassium [Moles/Vol]3.9 mmol/L Normal3.5-5.1The [facility] CenterComment on above:Performed By: #### BMP, LIPID, TSH ####[facility] [address]bpypqn[address] [place] [address]Dr. Yilan ChangSodium [Moles/Vol]134 mmol/LCritically bzf511-150Uvs [facility] CenterComment on above:Performed By: #### BMP, LIPID, TSH ####[facility] [address]yzag[address] [place] [address]Dr. Analan ChangUrea nitrogen [Mass/Vol]13.0 mg/dLNormal7.0-18.0The [facility] Comment on above:Performed By: #### BMP, LIPID, TSH ####[facility] B[address]grn[address] [place] [address]Dr. Yilan ChangUrea nitrogen/Creatinine [Mass ratio]17.6 mg/mgNormalThe [facility] CenterComment on above:Performed By: #### BMP, LIPID, TSH ####[facility] Z[address]wud[address] [place] [address]Dr. Digna ThomasTSHon 62-93-5925ZML1.084 uIU/mLCritically high0.358-3.740The [facility] CenterComment on above:Performed By: #### BMP, LIPID, TSH #### [facility] [address] [address] [address] Digna Thomas Vital Signs Date TimeVital SignValuePerforming DcofclitxAwbmtfuy83-06-1369 08:28-0400Body zjphpy260.1 cmBenjamin Ball DO Work Phone: [phone]08-13-2025 08:28-0400 Body mass index (BMI) [Ratio]50.3 kg/d1Alokwvul Ball DO Work Phone: [phone])[address] [place], [place] 56[address]108-13-2025 08:28-0400 Body spjhee655.21 kgBenjamin Ball DO Work Phone: [phone])[address] [place], [place] 5627108-13-2025 08:28-0400 Diastolic blood mm[Hg]Kelechi Ball DO Work Phone: [phone] [place], [place] 5627108-13-2025 08:28-0400 Heart rate65 /minBenjamin Ball DO Work Phone: [phone] [place], [place] 5627108-13-2025 08:28-0400 Respiratory rate12 /minBenjamin Ball DO Work Phone: [phone] [place], [place] 5627108-13-2025 08:28-0400 SaO2% (BldA) [Mass fraction]97 %Kelechi Ball DO Work Phone: [phone])[address] [place], [place] 5627108-13-2025 08:28-0400 Systolic blood kjegsejy025 mm[Hg]Kelechi Ball DO Work Phone: [phone] [place], [place] 56[address]104-18-2025 08:36-0400 Body wbysfk567.1 cmSelect [facility]04-18-2025 08:36-0400Body mass index (BMI) [Ratio]50.4 kg/z2DzbbenwkoSelect Medical Specialty Hospital [facility], Inc04-18-2025 08:36-0400Body poxsmt855.43 kgSelect Medical Specialty [facility], [facility]04-18-2025 08:36-0400Diastolic blood hgvrztyi95 mm[Hg][facility] 12-27-2024 08:36-0400Heart rate66 /minSelect Medical Specialty [facility], [facility] 12-27-2024 08:36-0400Respiratory rate12 /[facility] 12-27-2024 08:36-8265LhX0% (BldA) [Mass fraction]98 %[facility]04-18-2025 08:36-0400Systolic blood mm[Hg][facility]02-16-2025 13:58-0500Body gtuefm827.1 cmSelect [facility], [facility]02-16-2025 13:58-0500Body mass index (BMI) [Ratio]49.4 kg/j3VwvcowfhcSelect Medical Specialty [facility], Inc02-16-2025 13:58-0500Body agkgcd484.71 kgSelect Medical Specialty [facility], [facility]02-16-2025 13:58-0500Diastolic blood wdvedepn84 mm[Hg] [facility]02-16-2025 13:58-0500Heart rate83 /[facility]02-16-2025 13:58-0500Respiratory rate18 /[facility]02-16-2025 13:58-4046KrY5% (BldA) [Mass fraction]99 % [facility]02-16-2025 13:58-0500Systolic blood fhvjvkyy632 mm[Hg][facility]12-13-2024 08:40-0500Body wyivof784.1 cm [facility]12-13-2024 08:40-0500Body mass index (BMI) [Ratio]46 kg/f6TxxgbzxsjSelect [facility]12-13-2024 08:40-0500Body weight 125.36 kg[facility]12-13-2024 08:40-0500Diastolic blood fgsunekj41 mm[Hg][facility]12-13-2024 08:40-0500Heart rate66 /[facility]12-13-2024 08:40-0500Respiratory rate16 /[facility]12-13-2024 08:40-0500Systolic blood bllqfseo198 mm[Hg][facility]12-08-2024 12:29-0500Body jozfpb872.1 cm[facility]12-08-2024 12:29-0500Body mass index (BMI) [Ratio]48.4 kg/e4HenipyxgdSelect Medical Specialty [facility], Inc12-08-2024 12:29-0500Body azzgnngwrle78.8 [degF][facility]12-08-2024 12:290500Body uqskub592 kgSelect [facility]12-08-2024 12:290500Diastolic blood mm[Hg][facility] 08-18-2024 12:290500Heart rate76 /[facility] 08-18-2024 12:290500Respiratory rate17 /[facility] 08-18-2024 12:290347NpS0% (BldA) [Mass fraction]97 %[facility]12-08-2024 12:29050Systolic blood mm[Hg][facility]11-27-2024 13:26-0500Body xnrilz098.1 cmNicole Sugey DO Work Phone: [facility] CenterOvgwqihrwk09-53-5484 13:26-0500Body mass index (BMI) [Ratio]45.43 kg/b3Ggaoza Sugey DO Work Phone: [facility] CenterWrwsirkwsg95-60-8346 13:26-0500Body akvyrf696.83 kgNicole Sugey DO Work Phone: [facility] CenterMfvquagoei22-99-3560 13:26-0500Diastolic blood qnsfchnu54 mm[Hg]Antione Sugey DO Work Phone: [facility] CenterWecsmvdgco56-59-0458 13:26-0500Heart rate70 /min Antione Sugey DO Work Phone: [place] [address]Egaslrzmpj69-43-1050 13:262465QuX0% (BldA) [Mass fraction]97 %Antione Sugey DO Work Phone: [place] [phone] 13:26-0500Systolic blood taezlhse323 mm[Hg]Antione Sugey DO Work Phone: [place] [address]Ddrbiqmodd11-26-4170 10:35-0500Body ycduyr102.1 [facility]11-11-2024 10:35-0500Body mass index (BMI) [Ratio]44.1 kg/l4StcsfxzuuSelect Medical Specialty [facility], Inc11-11-2024 10:35-0500Body ipmilw868.25 [facility]11-11-2024 10:35-0500Diastolic blood euohhfyd62 mm[Hg][facility]11-11-2024 10:35-0500 Heart rate74 /[facility]11-11-2024 10:35-0500 Respiratory rate16 /[facility]11-11-2024 10:35-0500 Systolic blood yrwcipjy404 mm[Hg][facility]10-11-2024 11:44-0400Body .1 [facility]10-11-2024 11:44-0400Body mass index (BMI) [Ratio]42.3 kg/a0AofuxgbutSelect Medical Specialty [facility], Inc10-11-2024 11:44-0400Body pdvboa970.26 [facility] 06-21-2024 11:44-0400Diastolic blood afbidgcr38 mm[Hg][facility]10-11-2024 11:44-0400Heart rate71 /[facility] 06-21-2024 11:44-0400Respiratory rate12 /[facility] 06-21-2024 11:44-0400Systolic blood htdsqhep668 mm[Hg][facility]08-06-2024 08:34-0400Body tunqkk344.1 [facility] 04-16-2024 08:34-0400Body mass index (BMI) [Ratio]40.3 kg/g2WszzaemgiSelect Medical Specialty [facility], Inc08-06-2024 08:34-0400Body equiee875.99 [facility]08-06-2024 08:34-0400Diastolic blood rcaepkxq67 mm[Hg][facility]08-06-2024 08:34-0400Heart rate71 /[facility]08-06-2024 08:34-0400Respiratory rate12 /[facility]08-06-2024 08:34-0400Systolic blood klugspdg071 mm[Hg][facility]05-18-2024 13:11-0400Body nmzuel828.1 cmSelect [facility]05-18-2024 13:11-0400Body mass index (BMI) [Ratio]42.9 kg/y3RgchktqueSelect Medical Specialty [facility], Inc05-18-2024 13:11-0400Body ccbnxhufiam07.1 [degF][facility]05-18-2024 13:11-0400Body .02 kg [facility]05-18-2024 13:11-0400Heart rate64 /[facility]05-18-2024 13:11-0400Respiratory rate16 /[facility]05-18-2024 13:11-5707XpE2% (BldA) [Mass fraction]97 % [facility]05-06-2024 08:41-0400Body fiiliw060.1 cm [facility]05-06-2024 08:41-0400Body mass index (BMI) [Ratio]43 kg/v8YnrnhjdnbSelect Medical Specialty [facility], [facility]05-06-2024 08:41-0400Body weight 117.25 kgSelect [facility]05-06-2024 08:41-0400Diastolic blood jcuyopml83 mm[Hg][facility]05-06-2024 08:41-0400Heart rate76 /[facility]05-06-2024 08:41-0400Respiratory rate12 /[facility]05-06-2024 08:41-0400Systolic blood giicaodr666 mm[Hg][facility]03-11-2024 12:57-0400Body .1 cm[facility]03-11-2024 12:57-0400Body mass index (BMI) [Ratio]46.3 kg/p4IduttglafSelect Medical Specialty Hospital - [facility], Inc03-11-2024 12:57-0400Body wjyusy272.26 kgSelect [facility]03-11-2024 12:57-0400Diastolic blood olnqborl96 mm[Hg][facility] 11-20-2023 12:57-0400Systolic blood tlcnqqyy486 mm[Hg][facility]02-06-2024 09:00-0500Body ajpvis791.1 cmBenjamin Ball Other [employer] Other 02-06-2024 09:00-0500Body mass index (BMI) [Ratio] 48.49 kg/u4Sthqeoxw Ball Other [facility] [employer] Other 02-06-2024 09:00-0500Body .18 kgBenjamin Ball Other [facility] [employer] Other 02-06-2024 09:00-0500Diastolic blood zsbwlnee47 mm[Hg] Kelechi Ball Other [facility] [employer] Other 02-06-2024 09:00-0500Respiratory rate12 /minBenjamin Ball Other [employer] Other 02-06-2024 09:00-0500Systolic blood aialrdyb221 mm[Hg] Kelechi Ball Other [employer] Other 01-12-2024 09:00-0500Body mlwwij640.1 cmBenjamin Ball Other [facility]01-12-2024 09:00-0500 Body mass index (BMI) [Ratio]50.25 kg/h9Zmhncail Ball Other [employer] Other 01-12-2024 09:00-0500Body gdbphu084.99 kgBenjamin Ball Other [employer] Other 01-12-2024 09:00-0500Body cwbdat857.98 kgSelect [facility]01-12-2024 09:00-0500Diastolic blood mm[Hg] Kelechi Ball Other [facility]01-12-2024 09:00-0500 Respiratory rate12 /minBenjamin Ball Other [place] [employer] Other 01-12-2024 09:00-0500Systolic blood mm[Hg] Kelechi Ball Other [facility]12-12-2023 08:30-0500 Body yziksi598.1 cmBenjamin Ball Other [facility]12-12-2023 08:30-0500 Body mass index (BMI) [Ratio]52.95 kg/k1Kjrqweez Ball Other [facility] [employer] Other [id number] 08:30-0500Body czopce512.34 kgBenjamin Ball Other [place] [employer] Other 12-12-2023 08:30-0500Body .33 kg[facility]12-12-2023 08:30-0500Diastolic blood grpdfovp45 mm[Hg] Kelechi Ball Other [facility]12-12-2023 08:30-0500 Respiratory rate12 /minBenjamin Ball Other [place] [employer] Other 12-12-2023 08:30-0500Systolic blood hmugsors783 mm[Hg] Kelechi Ball Other [facility]09-15-2023 09:40-0400 Body nyvvth335.1 cmPamela Hue Other [place] [employer] Other 09-15-2023 09:40-0400Body mass index (BMI) [Ratio] 51.88 kg/l3Llreka Hue Other [employer] Other 09-15-2023 09:40-0400Body ilstepxwoee02 [degF]Angélica Swann Other [employer] Other 09-15-2023 09:40-0400Body ouczbp245.43 kgPahussain Swann Other [employer] Other 09-15-2023 09:40-0400Diastolic blood atoqdstt82 mm[Hg] Angélica Mcqueenmond Other [employer] Other 09-15-2023 09:40-0400Respiratory rate18 /minAngélica Swann Other [employer] Other 09-15-2023 09:40-0509PsM5% (BldA) [Mass fraction]96 % Angélica Swann Other [employer] Other 09-15-2023 09:40-0400Systolic blood vrwkotdr787 mm[Hg] Angélica Swann Other [employer] Other 06-20-2023 13:15-0400Body oskhbc273.1 cmBenjamin Ball Other [employer] Other 06-20-2023 13:15-0400Body mass index (BMI) [Ratio] 52.55 kg/t5Hrchxedn Ball Other [employer] Other 06-20-2023 13:15-0400Body gihhta731.25 kgBenjamin Ball Other [employer] Other 06-20-2023 13:15-0400Diastolic blood snohalhw72 mm[Hg] Kelechi Ball Other [employer] Other 06-20-2023 13:15-0400Respiratory rate12 /minBenjamin Ball Other [employer] Other 06-20-2023 13:15-0400Systolic blood twxhwilm816 mm[Hg] Kelechi Ball Other [employer] Other 05-08-2023 12:30-0400Body mevvio656.1 cmBenjamin Ball Other [employer] Other 05-08-2023 12:30-0400Body mass index (BMI) [Ratio] 52.28 kg/o7Jiyjpqvq Ball Other [employer] Other 05-08-2023 12:30-0400Body oohzoa208.52 kgBenjamin Ball Other [employer] Other 05-08-2023 12:30-0400Diastolic blood ayudnzjx15 mm[Hg] Kelechi Ball Other [employer] Other 05-08-2023 12:30-0400Respiratory rate16 /minBenjamin Ball Other [employer] Other 05-08-2023 12:30-0400Systolic blood udlnwssx479 mm[Hg] Kelechi Ball Other [employer] Other 05-03-2023 18:10-0400Body rpwosd784.1 cmPamela Hue Other [employer] Other 05-03-2023 18:10-0400Body mass index (BMI) [Ratio] 52.41 kg/i0Urffczhussain Swann Other [employer] Other 05-03-2023 18:10-0400Body lwhqtyxmtvd95.6 [degF]Angélica Swann Other [employer] Other 05-03-2023 18:10-0400Body ilfwos607.88 kgAngélica Swann Other [employer] Other 05-03-2023 18:10-0400Diastolic blood mm[Hg] Angélica Swann Other [employer] Other 05-03-2023 18:10-0400Respiratory rate20 /minAngélica Swann Other [employer] Other 05-03-2023 18:10-5613JrI0% (BldA) [Mass fraction]96 % Angélica Swann Other [employer] Other 05-03-2023 18:10-0400Systolic blood wonpwvic587 mm[Hg] Angélica Swann Other [employer] Other 02-07-2023 12:00-0500Body icgzbl532.1 cmBenjamin Ball Other [employer] Other 02-07-2023 12:00-0500Body mass index (BMI) [Ratio] 52.31 kg/j1Juwjovwi Ball Other [employer] Other 02-07-2023 12:00-0500Body azgnxq693.61 kgBenathaniel Galvan Other [employer] Other 02-07-2023 12:00-0500Diastolic blood nkbggueo73 mm[Hg] [facility]chi [facility]van [facility] [employer] Other 02-07-2023 12:00-0500Respiratory rate12 /minBenathaniel Galvan Other [facility] [employer] Other 02-07-2023 12:00-0500Systolic blood xaqrasrm632 mm[Hg] Kelechi Galvan Other [facility] [employer] Other Encounters Encounter DateEncounter TypeCare ProviderFacilityStart: 04-23-2025 End: 79-37-9451lsmlsjrtcvOurbirki Ball DO Work Phone: [facility] Work Phone: Start: 04-23-2025 End: 08-31-4873Nebnrqa encounter procedureBeinesavelino Galvan DO-[facility] Work Phone: Start: 04-14-2025 End: 13-26-4698blksvlwjlcJgenxreJoe Becerra MDFacility:[facility] [place] Start: 79-78-0760jzryttguwuGxuxzcrflpt AbdelazizFacility:[facility] Hospitaltart: 03-12-2025 End: 35-64-4441Vfvdofj encounter procedureJeny Manley NP-C-[facility] [address] [facility] Work Phone: Start: 03-12-2025 End: 16-48-5752wquuebbrgxYobumnla Ball DO Work Phone: [facility] Work Phone: Start: 12-27-2024 End: 41-86-2952kejpnekwhvUmmwykafmUC [facility] Work Phone: Start: 12-27-2024 End: 42-46-0294Mraguzm encounter [facility]High[facility] Work Phone: Start: 56-06-7480Son-patient / Non-visitHighlands-[facility] Work Phone: Start: 10-27-2024 End: 66-19-6970dbhllkaaplYyemyaqbx [facility] Work Phone: Start: 10-27-2024 End: 25-68-9652Drwyvjo encounter procedureHighlands-[facility] Work Phone: Start: 13-95-3607Seg-patient / Non-visitHighlands-[facility] Work Phone: Start: 71-62-2501Guf-patient / Non-visitHighlands-[facility] Work Phone: Start: 08-23-2024 End: 65-76-5342Yvdzmdbxl for general adult medical examination without abnormal findingsOhioHealth Riverside Methodist Hospitaltart: 08-23-2024 End: 41-77-1980Adzroxy encounter procedureHighlands-[facility] Work Phone: Start: 71-89-5665Sbrjomg encounter statusOhioHealth Riverside Methodist Hospitaltart: 08-18-2024 End: 90-88-2989Jpdxgod encounter procedureHighlands[facility] Work Phone: Start: 08-07-2024 End: 56-67-9419Wypopo flowsheetNicole Sugey DO Work Phone: [facility] [address]Start: 08-07-2024 End: 49-51-5705Hkklgj flowsheetNicole Sugey DO Work Phone: [facility] [address]Start: 08-07-2024 End: 79-29-0601Huufmh outpatient visit 25 minutesNicole Sugey DO Work Phone: [facility] ROUTEComment on above:REBA (obstructive sleep apnea) (Primary Dx); Hypoxia; Hypersomnia; Obesity due to excess calories, unspecified class, unspecified whether serious comorbidity present; SnoringStart: 08-07-2024 End: 21-94-9545yqygdpkazrPSANWX DANNERNot AvailableStart: 07-22-2024 End: 44-17-6484wvqdmmmroyFmzudsfyhHolmes County [facility] Work Phone: Start: 07-22-2024 End: 97-94-7513Hzfxfsz encounter procedureHighlands[facility] Work Phone: Start: 06-21-2024 End: 20-88-1657kkhtcgtlidVryqxfecwHolmes County [facility] Work Phone: Start: 06-21-2024 End: 74-57-7504Ucmvtno encounter procedureHighlands-[facility] Work Phone: Start: 04-16-2024 End: 97-01-1893ndinumkmduDafonjyurHolmes County [facility] Work Phone: Start: 04-16-2024 End: 65-45-8698Vamvpic encounter procedureHigh[facility] Work Phone: Start: 01-27-2024 End: 87-05-9819bwvrckqvrcNemylsjceHolmes County [facility] Work Phone: Start: 01-27-2024 End: 26-12-1592Ivrkpif encounter procedureHighlands-C[facility] GroupM[facility] Work Phone: Start: 01-15-2024 End: 48-15-0224vueqprfshwOragynfduHolmes County [facility] Work Phone: Start: 01-15-2024 End: 44-22-8437Qvbrxyp encounter procedureHighlands-[facility] Work Phone: Start: 57-58-4674Mim-patient / Non-visitHighlands[facility] GroupSt[facility] Work Phone: Start: 10-27-2023 End: 98-92-2139uxyqnpccheAymgjofoeUC [facility] Work Phone: Start: 10-27-2023 End: 69-44-7646Esafqem encounter procedureHighlands-[facility] Work Phone: Start: 10-20-2023 End: 21-09-7805zlzhufccyuAppefgvt Ball Other [employer] Other Start: 97-83-5137Ixqjbmvhu by computer linkBenjamin BallFPG [facility] Medical ClinicStart: 10-17-2023 End: 55-52-6123uqgjporewwVrggtbcr Ball Other [employer] Other Start: 73-02-6143Tzajiq outpatient visit 15 minutes Kelechi BallFPG [facility] ClinicStart: 09-22-2023 End: 19-78-0960dyutlmpubyMamtvuac Ball Other [employer] Other Start: 93-89-4528Gxjyqd outpatient visit 15 minutes Kelechi BallFPG [facility] ClinicStart: 09-22-2023 End: 43-83-1228Pcuoami encounter procedureHighlands[facility] Work Phone: Start: 09-08-2023 End: 45-29-7400gnwferfisfQxhnzhbu Ball Other [employer] Other Start: 37-63-5434Wfegfiehw encounterBenjamin BallFPG [facility] ClinicStart: 08-28-2023 End: 47-14-5024rukrfsxdmbWqqusxvo Ball Other [employer] Other Start: 40-14-1551Qubstbzrs encounterBenjamin BallFPG [facility] ClinicStart: 08-26-2023 End: 57-88-5781kadfvmazokGenrlrmx Ball Other [employer] Other Start: 99-50-5131Vlepbwtqt encounterBenathaniel Galvan Medical ClinicStart: 08-22-2023 End: 87-49-5341ixhajgqrisHkwlcitn Ball Other [employer] Other Start: 81-24-4527Ejsyqpyoo for general adult medical examination without abnormal findingsKelechi Galvan Medical ClinicStart: 35-08-3100Xokdkxvs preventive med est patient 40-64yrsBenathaniel Galvan Medical ClinicStart: 08-22-2023 End: 44-52-6273Cmxpdkx encounter procedureFirelands Physician [facility] Work Phone: Start: 05-26-2023 End: 61-35-7203qrenqsepznNrxtpx Dymond Other [employer] Other Start: 41-94-8135Krqhzm outpatient visit 15 minutes Angélica P[facility] ClydeStart: 04-18-2023 End: 30-93-9737pixhxakhmoNlldakdy Ball Other [employer] Other Start: 93-79-1594Fvnjqe outpatient visit 15 minutes Kelechi Galvan [facility] ClinicStart: 02-28-2023 End: 98-79-4098fiwmeydtbjAbtewdhy Ball Other [employer] Other Start: 86-01-2486Hxllyd outpatient visit 15 minutes Kelechi Galvan [facility] ClinicStart: 01-19-2023 End: 49-58-1102qfwvwmtepgEsmphsds Ball Other [employer] Other Start: 26-80-2982Axouafjpn encounterBenavelino Galvan Medical ClinicStart: 01-16-2023 End: 72-96-2425fgkivfigbmUrxybxgn Ball Other [employer] Other Start: 06-70-2682Vhdfxu outpatient visit 25 minutes Kelechi Galvan [facility] ClinicStart: 01-11-2023 End: 34-10-3219Ljygumk encounter procedureNP-C Angélica Hue Work Phone: [facility] Work Phone: Start: 01-11-2023 End: 27-88-1827whmpgaeeplQV-C Angélica Hue Work Phone: [facility] Work Phone: Start: 65-92-0400Qfzifw outpatient visit 15 minutes Angélica HueFPG Urgent Care ClydeStart: 69-97-1656Ckxohyzaz encounterBenavelino Galvan Medical ClinicStart: 50-33-0818Szndqlvun for general adult medical examination without abnormal findingsDR KELECHI COLEMercy Health St. Anne Hospitaltart: 01-05-2023 End: 93-42-6733idjbpbdfswKR KELECHI GALVANFacility:R3Usrcs: 01-05-2023 End: 88-55-5634Utenrgsal for general adult medical examination without abnormal findingsDR KELECHI GALVANFacility:K6Fpfib: 01-03-2023 End: 09-06-8929crohldwesoShtkwhux Ball Other [facility] [employer] Other Start: 18-42-3827Xxccustew for general adult medical examination without abnormal findingsBenavelino Galvan Medical ClinicStart: 52-04-4726Ncubmge encounter statusBenathaniel Galvan Other [employer] Other Start: 31-86-7466Mhiwfpfvn encounterBenavelino Galvan Medical ClinicStart: 12-21-2022 End: 82-71-1607hqqivoyufzWY KELECHI BALLFacility:N4Eihfl: 12-08-2022 End: 06-66-1585gnefqagjfzKF KELECHI BALLFacility:R0Aqjlh: 11-23-2022 End: 76-53-6463ixwuuzenzyFjnazlme Ball Other [employer] Other Start: 24-71-4951Bnsjxytiq encounterBenjamin BallFPG [facility] ClinicStart: 11-16-2022 End: 01-13-0640ntxrerztruFG KELECHI BALLFacility:H2Spaog: 11-09-2022 End: 93-66-4828ngosdlorngUH KELECHI BALLFacility:I3Ciqqw: 11-03-2022 End: 38-96-3118uecrrfhuryOM KELECHI BALLFacility:Y5Eakcp: 10-27-2022 End: 91-32-5394vsbylcybzxXV KELECHI BALLNort [employer] Other Start: 26-14-2540Bklzxzqbe encounterBenjamin BallFPG [facility] ClinicStart: 10-18-2022 End: 50-94-8525kzlbolmohtWlbjqffl Ball Other [employer] Other Start: 66-13-1147Niwhux outpatient visit 25 minutes Kelechi BallJESUS ALBERTOG [facility] Medical ClinicStart: 10-07-2022 End: 01-21-0487pzvghihhobIibwooxh Ball Other [employer] Other Start: 73-68-0938Jtxpxttbf encounterBenjamin BallFPG [facility] ClinicStart: 39-63-6883Vyoof health examinationBenteresamin Ball Other [employer] Other Start: 07-11-2022 End: 29-15-3709pdlfrgzuuwZB KELECHI BALLFacility:I5Samkf: 04-07-2022 End: 00-51-4171gdkjperoxrUL DEANN ELIAS .Facility:W5Mrijr: 70-01-1210Uka- procedure evaluation checkKelechi Galvan Other Nort [employer] Other Start: 57-13-7209Mxkhigraldbjr examination normal Kelechi Galvan Other [facility] [employer] Other Procedures DateProcedureProcedure DetailPerforming ClinicianStart: 74-62-9236BK lumbar spine wo conKelechi Galvan DO Work Phone: Start: 37-47-4978Lpsja X-ray of right handNP-C Angélica Swann Work Phone: Start: 59-48-8036Iiskccergfnt cardiovascular examinationKelechi Galvan Other End: 44-84-0606Acpqpdqckmehh care educationBenathaniel Galvan Other Depression screeningKelechi Galvan Other Ligation of fallopian tubeBenathaniel Galvan Other Screening for malignant neoplasm of breastKelechi Galvan Other Plan of Treatment DateCare ActivityDetailAuthorStart: 08-07-2024 End: 33-95-5895Nvdooub encounter nyrzrmykd38/27/2024 1:30 PM EST Office Visit [facility] [address] [place] [address] Antione Madera, DO [address] [place] [address] ArrivedNOMS [address] STATE ROUTEComment on above: ArrivedStart: 34-20-1784dnnoebtodyRkztotykidXhbgaxft:J1Isigpkjraudgy metabolic 2000 panel - Serum or PlasmaSelect [facility], IncMG Breast - bilateral ScreeningSelect Medical Specialty [facility], IncPatient EducationLow back pain in adultsPeoples Hospital Work Phone: [facility] Payers DatePayer CategoryPayerPolicy [id number]-amn [id number] Health InsuranceTRINITY HEALTH [place] MEDICAID Member Subscriber Plan / Payer (Effective 2021-Present) Name: Jing Gray Relation to Subscriber: Self Name: Jing Gray Payer ID: Not on file Group ID: [id number] Type: Not on file Address: [address] [address]..[id number] [id number] 2..1.304577.3.57[id number] 2..1.846407.3.57[id number] 2..1.245452.3.57[id number] 2..1.420105.3.57[id number] 2..1.411665.3.57[id number] 2..1.629150.3.57[id number] 2..1.041014.3.57[id number] 2..1.928543.3.57[id number] 2..0.1.823699.3.57[id number] 2..840.1.146472.3.57[id number] 2.0.1.755984.3.57[id number] 2.0.1.817813.3.57[id number] 2.0.1.141572.3.57[id number] 2.840.1.415932.19 [id number] [id number] 2.16840.1.2[id number] 2.0.1.297797.3.579.2.531 Social History DateTypeDetailFacilityUnknown if ever smokedRockland [employer] Other Start: 32-09-6343Wwa Assigned At [facility] [employer] Other Start: 98-19-5197Ksd [facility] End: 97-29-6786Uwxtawl smoking status NHISNever smoked tobacco (finding) [facility] End: 53-27-4111Xzegaob smoking status NHISEx-smoker (finding)[facility] 07-[facility]-2024 End: 74-99-9637UeqPhdxvp (finding)[facility], IncTobacco smoking status NHISTobacco smoking consumption unknownNOKS HealthcareStart: 36-52-6926Rdd assigned at birthNot on fileNOKS HealthcareStart: 09-11-1988 End: 47-02-0287Hwekgas of tobacco useCurrent smokerNOKS HealthcareStart: 09-11-1988 End: 69-14-1043Gsascjq of tobacco useCigarette SmokerMOUNTAIN POINT [facility] HealthcareStart: 11-48-3763Cqnekdhfhr smoked current (pack per day) - Reported1.5[facility] Start: 88-47-1421Ggsavjw use and exposureSmokeless tobacco non-userMOUNTAIN POINT [facility] HealthcareStart: 85-02-4910Ktjpzgyfb beverage intakeLifetime non-drinker (finding)[facility] Medical Equipment Procedure CodeEquipment CodeEquipment Original TextEquipment IdentifierDates Blood Sugar Diagnostic (Onetouch Ultra Test) stripStart: 49-06-5228Syadb Sugar Diagnostic (Onetouch Ultra Test) stripStart: 06-10-2024 End: 28-20-0697Nzzzr Sugar Diagnostic (Onetouch Ultra Test) stripStart: 50-52-1359Paoze Sugar Diagnostic (Onetouch Ultra Test) stripStart: 06-10-2024 End: each by Other route if needed.Start: 22-09-8375Zggkd Sugar Diagnostic (Onetouch Ultra Test) stripStart: 21-68-2833Yjtnr Sugar Diagnostic (Onetouch Ultra Test) stripStart: 06-10-2024 End: 02-66-0892Lnfkx Sugar Diagnostic (Onetouch Ultra Test) stripStart: 23-80-4288Vkwys Sugar Diagnostic (Onetouch Ultra Test) stripStart: 06-10-2024 End: 56-35-8905Yxwex Sugar Diagnostic (Onetouch Ultra Test) stripStart: 27-75-1803Uwoqe Sugar Diagnostic (Onetouch Ultra Test) stripStart: 06-10-2024 End: 55-87-4637Eways Sugar Diagnostic (Onetouch Ultra Test) stripStart: 39-92-5394Djadf Sugar Diagnostic (Onetouch Ultra Test) stripStart: 06-10-2024 End: 06-10-2024 Clinical Notes 05-31-2011 to 12-27-2024 Note Date & [id number] Evaluation note* Diagnosis Onset Date Resolution Status Admit Date Low back pain acuteApril 2024 8:24amLumbar spondylosisacuteApril 2024 8:24amMajor depressionacuteApril 2024 8:24amObesityacuteApril 2024 8:24amOSA (obstructive sleep apnea)acuteApril 2024 8:24amPrimary hypertensionacute Susan 2024 8:24amType 2 diabetes mellitus with hyperglycemiaacuteApril 2024 8:24am [facility] Work Phone: 1(375) 559-321702-16-2025 Evaluation note* Diagnosis Onset Date Resolution Status Admit Date Lumbar radiculopathy noneactiveFebruary 2024 1:38pmLumbar spondylosisacuteApril 2024 8:24am [facility] Work Phone: 1(819) 510-987812-08-2024 Evaluation note* Diagnosis Onset Date Resolution Status Admit Date Otitis media noneactiveDecember 2023 12:19pmInsomniaacuteDecember 2023 8:26amMajor depressionacuteDecember 2023 8:26amObesityacuteDecember 2023 8:26am REBA (obstructive sleep apnea)acuteDecember 2023 8:26amPrimary hypertension acuteDecember 2023 8:26amProlactinomaacuteDecember 2023 8:26am Screening mammogram for breast canceracuteDecember 2023 8:26amType 2 diabetes mellitus with hyperglycemiaacuteDecember 2023 8:26amWellness examinationacuteDecember 2023 8:26am [facility] Work Phone: 1(691) 329-139211-27-2024 History of Present illness Narrative* Antione [place] [...] minutes and residual AHI of 0.3. Her [place] Sleepiness scale is a 3. She does have underlying obesity but is trying to work hard with diet exercise and weight loss. Shelost about 70 lb but gained a litte bit back and knows she needs to get back on her regular programas she was doing very well. Plan Compliance data was reviewed with her and she is compliant [place] Sleepiness scale is 3 Continue use the CPAP machine whenever sleeping Get back on the diet and exercise regimen The patient was counseled on the need for aggressive diet, exercise, and weight loss. The patient was counseled on proper sleep hygiene and adequate hours of sleep. The patient was counseled on the risks of stroke, W[place], and sudden with REBA, along with the [...] to clinic: 1 year [facility] [id number] Evaluation note* Diagnosis Onset Date Resolution Status Admit Date Carpal tunnel syndrome of right wrist acuteOctober 2023 11:38amInsomniaacuteOctober 2023 11:38amMajor depressionacuteOctober 2023 11:38amPanic attackacuteOctober 2023 11:38amInsomniaacuteNovember 2023 10:19amMajor depressionacuteNovember 2023 10:19amPanic attackacuteNovember 2023 10:19amPrimary hypertensionacuteNovember 2023 10:19am [facility] Work Phone: 1(459) 288-208002-09-2024 Evaluation note* Encounter Date Diagnosis Assessment Notes Treatment Notes Treatment Clinical Notes Oct, Morbid (severe) obesity due to e xcess calories (ICD-10 - E66.01) [facility] Other 02-06-2024 Evaluation note* Encounter Date Diagnosis Assessment Notes Treatment Notes Treatment Clinical Notes Oct, Primary hypertension (ICD-10 - I 10) This patient is instructed to consume a healthy, low-fat, low-salt diet. They are also encouraged to continue exercise to achieve/maintain a normal BMI. Patient is instructed on home BP measurements: - rest for 5 minutes w/o talking.- positioned w/ feet on floor and arm supported.- average best 2/3 readings w/ goal < 135/85.- update office w/ homereadings in 2 weeks. Oct,Type 2 diabetes mellitus with hyperglycemia, without long-term current use of insulin (ICD-10 - E11.65)This patient is following a comprehensive diabetic treatment [...] office visit. Continue regular routine monitoring of A1C,Microalbumin, Dilated eye exam and Foot exam Oct,Morbid (severe) obesity due to excess calories (ICD-10 - E66.01)This patient has been instructed on a low-fat, [...] - estimated to be about 14 lbs Oct,ody mass index [BMI] 50.0-59.9, adult (ICD-10 - Z68.43) [facility] Other 01-12-2024 Evaluation note* Encounter Date Diagnosis Assessment Notes Treatment Notes Treatment Clinical Notes Sep, Primary hypertension (ICD-10 - I 10) This patient is instructed to consume a healthy, low-fat, low-salt diet. They are also encouraged to continue exercise to achieve/maintain a normal BMI. Sep,Type 2 diabetes mellitus with hyperglycemia, without long-term current use of insulin (ICD-10 - E11.65)This patient is following a comprehensive diabetic treatment [...] Microalbumin, Dilated eye exam and Foot exam Sep,Morbid (severe) obesity due to excess calories (ICD-10 - E66.01)This patient has been instructed on a low-fat, high-fiber diet. They are instructed to reduce calories, portion sizes and snacks. It is recommended that they exercise for 30 minutes, 3-5 times weekly. She denies any ADR to [employer] - Rx sent ot [place] Sep,ody mass index [BMI] 50.0-59.9, adult (ICD-10 - Z68.43) [facility] Other 12-29-2023 Evaluation note* Encounter Date Diagnosis Assessment Notes Treatment Notes Treatment Clinical Notes Aug, Prolactinoma (ICD-10 - D35.2) MRI < 10mm, prolactin 80 - 2022 [facility] Other 12-16-2023 Evaluation note* Encounter Date Diagnosis Assessment Notes Treatment Notes Treatment Clinical Notes Aug, Hyperprolactinemia (ICD-10 - E22 .1) [facility] Other 12-12-2023 Evaluation note* Encounter Date Diagnosis Assessment Notes Treatment Notes Treatment Clinical Notes Aug, Wellness examination (ICD-10 - Z 00.00) Healthy diet and exercise. Reviewed age-appropriate preventive testing recommended. Aug,OSA (obstructive sleep apnea) (ICD-10 - G47.33)AHI 104 w/ Psat 68%, BiPAP , full facial maskThis patient is aware of the benefits associated with REBA: With continued use, the patient reduces the risk for W[place], CVA, HTN, cardiac dysrhythmias and sudden cardiac deaths.The patient is also aware of the association between REBA and morning headaches, daytime somnolence, fatigue and obesity, whichalso has been improved with continued use.The patient is compliant with treatment, wearing the equipment every night for greater than 4 hours.The patient is instructed to continue use of the CPAP forOSA treatment. Aug,rimary hypertension (ICD-10 - I10)This patient is instructed to consume a healthy, low-fat, low-salt diet. They are also encouraged to continue exercise to achieve/maintain a normal BMI. Aug,Type 2 diabetes mellitus with hyperglycemia, without long-term current use of insulin (ICD-10 - E11.65)This patient is following a comprehensive diabetic treatment [...] Microalbumin, Dilated eye exam and Foot exam Aug,urrent moderate episode of major depressive disorder without prior episode (ICD-10 - F32.1)Healthy diet and exercise. No change in medical therapy Aug,Hyperprolactinemia (ICD-10 - E22.1)Check prolactin level. Denies headaches or visual distortion Aug,Morbid (severe) obesity due to excess calories (ICD-10 - E66.01)This patient has been instructed on a low-fat, high-fiber diet. They are instructed to reduce calories, portion sizes and snacks. It is recommended that they exercise for 30 minutes, 3-5 times weekly. Aug,ody mass index [BMI] 50.0-59.9, adult (ICD-10 - Z68.43) Aug,Screening mammogram for breast cancer (ICD-10 - Z12.31)Instructed patient on monthly SBE and yearly mammograms. [facility] Other 09-15-2023 Evaluation note* Encounter Date Diagnosis Assessment Notes Treatment Notes Treatment Clinical Notes May, Strain of neck muscle, initial e ncounter (ICD-10 - S16.1XXA) Muscle strain home care material was printed Drink plenty fluids, get plenty of rest. Take the prednisone as prescribed until gone. Continue to take your Zanaflex and use your TENS unit for comfort. Take Tylenol as needed for pain. Follow-up with your family physician if no improvement by Monday. May,Strain of thoracic region, initial encounter (ICD-10 - S29.019A) [facility] Other 08-08-2023 Evaluation note* Encounter Date Diagnosis Assessment Notes Treatment Notes Treatment Clinical Notes Apr, Sharmin-menopausal (ICD-10 - N95.1) Recommend scheduling appt w/ Quality Manager. Apr,rimary hypertension (ICD-10 - I10)This patient is instructed to consume a healthy, low-fat, low-salt diet. They are also encouraged to continue exercise to achieve/maintain a normal BMI. Apr,urrent moderate episode of major depressive disorder without prior episode (ICD-10 - F32.1)Healthy diet, exercise and consistent sleep routine. Instructed to schedule counseling session. Instructed to seek care from ER for worsening mood, suicidal ideations. Call office w/ any concerns/questions Initiate SSRI, aware that it will take 4-6wks to reach maximum benefit Apr,OSA (obstructive sleep apnea) (ICD-10 - G47.33)AHI 104 w/ Psat 68%, BiPAP , full facial maskThis patient is aware of the benefits associated with REBA: With continued use, the patient reduces the risk for [place], CVA, HTN, cardiac dysrhythmias and sudden cardiac deaths.The patient is also aware of the association between REBA and morning headaches, daytime somnolence, fatigue and obesity, whichalso has been improved with continued use.The patient is compliant with treatment, wearing the equipment every night for greater than 4 hours.The patient is instructed to continue use of the CPAP forOSA treatment. [facility] Other 06-20-2023 Evaluation note* Encounter Date Diagnosis Assessment Notes Treatment Notes Treatment Clinical Notes Feb, Seborrheic dermatitis of scalp ( ICD-10 - L21.9) Keep clean, avoid scratching Stop using Mupirocin Initiate topical steroid ointment Feb,rimary hypertension (ICD-10 - I10)This patient is instructed to consume a healthy, low-fat, low-salt diet. They are also encouraged to continue exercise to achieve/maintain a normal BMI. [facility] Other 05-11-2023 Evaluation note* Encounter Date Diagnosis Assessment Notes Treatment Notes Treatment Clinical Notes January, Type 2 diabetes olive itus with hyperglycemia, without long-term current use of insulin (ICD-10 - E11.65) [facility] Other 05-08-2023 Evaluation note* Encounter Date Diagnosis Assessment Notes Treatment Notes Treatment Clinical Notes January, Type 2 diabetes olive itus with hyperglycemia, without long-term current use of [...] A1C: [ ] Microalbumin: [ ] Eye exam:[ ] Foot exam: [ ] Add SGLT-2 for cardiac and renal benefits and to lower A1C < 7% January,3Primary hypertension (ICD-10 - I10)This patient is instructed to consume a healthy, low-fat, low-salt diet. They are also encouraged to continue exercise to achieve/maintain a normal BMI. INstructed to monitor at home w/ goal < 135/85 and update office in couple weeks January,OSA (obstructive sleep apnea) (ICD-10 - G47.33)AHI 104 w/ Psat 68%, BiPAP 21/17, full facial maskThis patient is aware of the benefits associated with REBA: With continued use, the patient reduces the risk for [place], CVA, HTN, cardiac dysrhythmias and sudden cardiac deaths.The patient is also aware of the association between REBA and morning headaches, daytime somnolence, fatigue and obesity, whichalso has been improved with continued use.The patient is compliant with treatment, wearing the equipment every night for greater than 4 hours.The patient is instructed to continue use of the CPAP forOSA treatment. January,Morbid obesity (ICD-10 - E66.01)This patient has been instructed on a low-fat, high-fiber diet. They are instructed to reduce calories, portion sizes and snacks. It is recommended that they exercise for 30 minutes, 3-5 times weekly. January,rolactinoma (ICD-10 - D35.2)Stable, denies headaches or visual defects. January,Hyperprolactinemia (ICD-10 - E22.1) [facility] Other 05-03-2023 Evaluation note* Encounter Date Diagnosis Assessment Notes Treatment Notes Treatment Clinical Notes January, REBA (obstructive sle ep apnea) (ICD-10 - G47.33) AHI 104 w/ Psat 68%, BiPAP , full facial mask [facility] Other 05-03-2023 Evaluation note* Encounter Date Diagnosis Assessment Notes Treatment Notes Treatment Clinical Notes January, Right hand pain (ICD-10 - M79.64 1) January,Sprain of right wrist, initial encounter (ICD-10 - S63.501A)Wrist sprain home care material was printed Drink plenty fluids, get plenty of rest. Wear the Brennan wrap for comfort and compression. Take Tylenol or Motrin as needed for aches pains or fevers. Ice and elevate your wrist 2-3 times a day. Follow-up with your family physician if no improvement in 2 to 3 days [facility] Other 04-25-2023 Evaluation note* Encounter Date Diagnosis Assessment Notes Treatment Notes Treatment Clinical Notes Dec, Type 2 diabetes olive itus with hyperglycemia, without long-term current use of insulin (ICD-10 - E11.65) Dec,rimary hypertension (ICD-10 - I10) Dec,Wellness examination (ICD-10 - Z00.00) [facility] Other 03-30-2023 NoteCONSULTATION CONSULTATION DATE: 12/08/2022 TO: [...] this point for her residual pain symptoms.[id number] Evaluation note* Encounter Date Diagnosis Assessment Notes Treatment Notes Treatment Clinical Notes Nov, REBA (obstructive sleep apnea) (I CD-10 - G47.33) AHI 101 w/ Psat 79% [facility] Other 03-15-2023 Evaluation note* Encounter Date Diagnosis Assessment Notes Treatment Notes Treatment Clinical Notes Nov, REBA (obstructive sleep apnea) (I CD-10 - G47.33) AHI 104 w/ Psat 68% [facility] Other 02-23-2023 NotePAIN MANAGEMENT CONSULTATION CONSULTATION DATE: [...] four weeks' time or sooner if needed.[facility] 11-03-2022 NotePAIN MANAGEMENT CONSULTATION CONSULTATION [...] on his response to change in medication.[facility] 10-18-2022 Evaluation note* Encounter Date Diagnosis Assessment Notes Treatment Notes Treatment Clinical Notes Oct, Type 2 diabetes olive itus with hyperglycemia, without long-term current use of [...] reviewed at the office visit. A1C: due Oct,rimary hypertension (ICD-10 - I10)This patient is instructed to consume a healthy, low-fat, low-salt diet. They are also encouraged to continue exercise to achieve/maintain a normal BMI. Oct,Morbid obesity (ICD-10 - E66.01)This patient has been instructed on a low-fat, high-fiber diet. They are instructed to reduce calories, portion sizes and snacks. It is recommended that they exercise for 30 minutes, 3-5 times weekly. Oct,Suspected sleep apnea (ICD-10 - R29.818)Referral for sleep study [facility] Other 07-28-2022 NoteCONSULTATION CONSULTATION DATE: 04/07/2022 HISTORY [...] Patient states understanding and all questions answered.[facility] [id number] History general Narrative - Reported* Type Description Date Medical History hypertension Medical Historyback painMedical Historydegenerative disc diseaseMedical History ProlactinomaMedical HistoryasthmaSurgical HistoryC [id number]/31/2011Surgical RyrxibjDNK34/23/2009Surgical Historyhysterectomy laps [id number] Historyright foot sx (planter)Hospitalization Historysee aboveHospitalization Historyblood transfusion09/2014 [facility] [employer] Other Chief complaint+Reason for visit Narrative* Chief Complaint COVID+ Amb Documentation 3 month follow upReason for VisitCOVID-19 Lumbar spondylosis REBA (obstructive sleep apnea) Primary hypertension Type 2 diabetes mellitus with hyperglycemia [facility] Work Phone: Evaluation noteNo InformationNortEncompass Health Rehabilitation [facility] [employer] Other Evaluation noteNo assessment information available [facility] Work Phone: Evaluation note* Diagnosis Onset Date Resolution Status Type 2 diabetes mellitus with hyperglyce wiliam acuteCOVID-19noneactive [facility] Work Phone: Evaluation note* Diagnosis Onset Date Resolution Status COVID-19 noneactiveLumbar spondylosisacuteOSA (obstructive sleep apnea)acutePrimary hypertensionacuteType 2 diabetes mellitus with hyperglycemiaacute [facility] Work Phone: Evaluation note* Diagnosis Onset Date Resolution Status Obesity acutePrimary hypertensionacuteType 2 diabetes mellitus with hyperglycemiaacute [facility] Work Phone: Evaluation note* Diagnosis Onset Date Resolution Status Right otitis media with effusion acuteObesityacutePrimary hypertensionacuteType 2 diabetes mellitus with hyperglycemiaacute [facility] Work Phone: Evaluation note* Diagnosis Onset Date Resolution Status Obesity acuteOSA (obstructive sleep apnea)acutePalpitationacutePrimary hypertensionacute Type 2 diabetes mellitus with hyperglycemiaacute [facility] Work Phone: Evaluation note* Diagnosis REBA (obstructive sleep apnea)- Primary Obstructive sleep apnea (adult) (pediatric) Hypoxia Hypoxemia Hypersomnia Hypersomnia, unspecified Obesity due to excess calories, unspecified class, unspecified whether serious comorbidity present Snoring Other dyspnea and respiratory abnormality documented in this encounter [facility]* Diagnosis Onset Date Resolution Status Admit Date Low back pain acuteAugust 2024 8:21amLumbar spondylosisacuteAugust 2024 8:21am Major depressionacuteAugust 2024 8:21amObesityacuteAugust 2024 8:21amOSA (obstructive sleep apnea)acuteAugust 2024 8:21amPrimary hypertensionacuteAugust 2024 8:21amType 2 diabetes mellitus with hyperglycemiaacuteAugust 2024 8:21amScreening for colon cancernoneactive April 23, 2025 8:21am [facility] Work Phone: History general Narrative - Reported* Type Description Date Medical History hypertension Medical Historyback painMedical Historydegenerative disc diseaseMedical History ProlactinomaMedical HistoryasthmaMedical HistoryOSA (obstructive sleep apnea) Surgical HistoryC zanrgqz5905/31/2011Surgical FjyokcyFBD24/23/2009Surgical History hysterectomy laps [id number] Historyright foot sx (planter) Hospitalization Historysee aboveHospitalization Historyblood transfusion09/2014 [facility] Other Reason for referral (narrative)No reason for referral information availableP[facility] Work Phone: Summary Purpose Family History No Family History Records Found Relationship Condition Age at Onset Recorded Date/T milka father Unknown Malignant neoplasmUnknownHypertensionUnknownHeart diseaseUnknownNot Specified Malignant neoplasmUnknownHistory of malignant neoplasm of skinUnknown Relationship Condition Age at Onset Recorded Date/T milka father Unknown Malignant neoplasmUnknownHypertensionUnknownHeart diseaseUnknownmotherMalignant neoplasmUnknownHistory of malignant neoplasm of skinUnknown Advance Directives No Advanced Directives Records Found Advance Directive Response Recorded Date/ Time Advance Directives No June 28, 2017 2:45pm Advance Directive Response Recorded Date/ Time Advance Directives No June 28, 2017 1:45pm Chief Complaint and Reason for Visit Chief Complaint Wellness 1 Month Follow Up COVID+Reason for VisitType 2 diabetes mellitus with hyperglycemia COVID-19 Chief Complaint Amb Documentation 3 month follow up Right ear painReason for VisitObesity Primary hypertension Type 2 diabetes mellitus with hyperglycemia Chief Complaint Right ear pain 3 month f/uReason for VisitRight otitis media with effusion Obesity Primary hypertension Type 2 diabetes mellitus with hyperglycemia Chief Complaint 3 month f/u Meds not working/CarpalTunnelReason for VisitObesity REBA (obstructive sleep apnea) Palpitation Primary hypertension [...] 2024 8:26am Screening mammogram for breast cancer [facility] 2023 8:26am Type 2 diabetes mellitus with [...] Type 2 diabetes mellitus with hyperglyce wiliam Susan 18th, 2025 8:24am Chief Complaint Admit Date lumbar radiculopathy, [...] :21am Type 2 diabetes mellitus with hyperglyce wiliam April 23, 2025 8:21am Screening for colon cancer April 23, 2025 8:21am Additional Source Comments REASON FOR VISIT (unrecogniz ed section and content) ReasonCommentsSleep Apnea INFORMATION SOURCE (unrecogn ized section and content) DATE CREATED AUTHOR 01/11/2023 [facility] DATE CREATED AUTHOR AUTHOR'S ORGANIZ ATION 08/10/2024 [facility] DATE CREATED AUTHOR AUTHOR'S ORGANIZ ATION 04/25/2025 [facility] DATE CREATED AUTHOR AUTHOR'S ORGANIZ ATION 05/26/2025 [facility] Care Teams (unrecognized sec tion and content) Team Status: Active Member Role Status Dates Kelechi Galvan DO Primary Care Provider Active Team Status: Inactive Member Role Status Dates Kelechi Galvan DO Primary Care Provider Active Start: March 12, 2025 End: March 12delia Manley NP-CAttenguerrero ProviderActiveStart: March 12, 2025 End: March 12, 2025 Team Status: Inactive Member Role Status Dates Kelechi Galvan DO Primary Care Provider Active Start: April 23, 2025 End: April 23Tyler Elias ProviderActiveStart: April 23, 2025 End: April 23, 2025 Team Status: Active Member Role Status Alan Galvan DO Primary Care Provide r, Attending Provider Active Start: October 09, 2024 Team Status: Inactive Member Role Status Dates Kelechi Galvan DO Primary Care Provider Active Start: October 27, 2024 End: October 27Randolph Mehta ProviderActiveStart: October 27, 2024 End: October 27, 2024 Team Status: Active Member Role Status Alan Galvan DO Primary Care Provide r, Attending Provider Active Start: December 17, 2024 Team Status: Inactive Member Role Status Alan Galvan , DO Primary Care Provide r, Attending Provider Active Start: December 27, 2024 End: December 27, 2024 Team Status: Inactive Member Role Status Alan Galvan DO Primary Care Provider Active Start: January 27, 2024 End: January 27, 2024Randolph Dotson ProviderActiveStart: January 27, 2024 End: January 27, 2024 Team Status: Inactive Member Role Status Alan Galvan DO Primary Care Provide r, Attending Provider Active Start: April 16, 2024 End: April 16, 2024 Team Status: Active Member Role Status Alan Galvan DO Primary Care Provider Active Start: November 20, 2023 Rosie Goodwin ProviderActiveStart: November 20, 2023 Team Status: Inactive Member [...] Start: July 22, 2024 End: July 22, 2024Team MemberRelationshipSpecialtyStart DateEnd Kelechi Latham MD [address] [place] [id number] PCP - GeneralInternal Medicine05/25/23Team MemberRelationshipSpecialtyStart Date End Date Kelechi Galvan MD [address] [facility] [facility] [place] [id number] PCP - [facility] Centernal Medicine05/25/23 Team Status: Inactive Member Role Status Dates Kelechi Galvan , Primary Care Provider Active Start: August 18, 2024 End: August 18, 2024Randolph Juarez ProviderActiveStart: August 18, 2024 End: August 18, 2024 [...] Galvan , Primary Care Provider Active Start: December 17, 2024 Tyler Bruce ProviderActiveStart: December 17, 2024 Team Status: Inactive Member Role Status Dates Kelechi Gavlan DO Primary Care Provider Active Start: December 27, 2024 End: December 27enTyler Elise ProviderActiveStart: December 27, 2024 End: December 27, 2024 [...] BE BASED ON THE PRIMARY CLINICAL RECORDS. [employer] provides no warranty or guarantee of the accuracy or completeness of information in this document.
--- NOTE | 2025-07-08 14:03 | ED.GENADUL1 ---
HPI HPI - General Adult General Chief complaint: Nausea/Vomiting/Diarrhea Stated complaint: vomiting, diarrhea Time Seen by Provider: 07/08/25 13:54 Source: patient Mode of arrival: walk-in Limitations: no limitations History of Present Illness HPI narrative: Patient is a 49-year-old female with a past medical history of DM type II, hypertension, and depression that presents with complaints of right upper quadrant/epigastric pain that started at about 10:00 this morning when she started having nausea, vomiting, and diarrhea. She states the pain is intermittent. She did try to take Zofran under her tongue at noon but did throw up and is unsure if the medication absorbed. She did have a similar episode to this with abdominal pain, nausea, vomiting, and diarrhea that lasted for about 36 hours last week. She denies any fever but does report some cold sweats. She does not have any sick contacts, she denies taking any new medications. She has had her tubes tied and has not had a menstrual cycle in about 7 years. Related Data Home Medications ?Medication ?Instructions ?Recorded ?Confirmed atenolol 50 mg tablet 50 mg PO DAILY 03/09/23 07/08/25 furosemide 20 mg tablet 20 mg PO DAILY 03/09/23 04/14/25 lisinopril 5 mg tablet 5 mg PO DAILY 03/09/23 07/08/25 metformin 1,000 mg tablet 1,000 mg PO QDAY 03/09/23 04/14/25 potassium chloride 10 mEq 10 meq PO DAILY 03/09/23 04/14/25 tablet,extended release (Klor-Con) ibuprofen 600 mg tablet 600 mg PO DAILY PRN pain 12/04/24 04/14/25 bupropion HCl 300 mg 24 hr tablet, 300 mg PO QDAY 02/06/25 07/08/25 extended release escitalopram oxalate 10 mg tablet 10 mg PO QDAY 02/06/25 07/08/25 Previous Rx's ?Medication ?Instructions ?Recorded tizanidine 4 mg tablet See Rx Instructions .Route 11/26/24 .COMPLEX PRN muscle spasticity #225 tabs oxycodone-acetaminophen 5 mg-325 1 tab PO TID PRN pain, 01/08/25 mg tablet (Percocet) moderate-severe #21 tabs tizanidine 4 mg capsule See Rx Instructions .Route 02/20/25 .COMPLEX PRN muscle spasticity #225 caps tizanidine 4 mg tablet See Rx Instructions .Route 05/21/25 .COMPLEX PRN muscle spasticity #120 tabs cefdinir 300 mg capsule 300 mg PO BID 10 days #20 caps 07/08/25 famotidine 20 mg tablet (Pepcid) 20 mg PO DAILY #14 tabs 07/08/25 ondansetron 4 mg disintegrating 4 mg PO Q8H PRN nausea and 07/08/25 tablet vomiting #14 tabs Allergies Allergy/AdvReac Type Severity Reaction Status Date / Time Penicillins Allergy Rash Verified 07/08/25 13:14 Opioid HPI Opioid Management Most Recent Opioid Data: Last Pain Scale 8 Today, 14:25 Last MAR Pain Assessment Today, 14:25 Review of Systems ROS Status of ROS 10 or more systems reviewed and unremarkable except as noted in history and below [facility] Medical History In vitro fertilization ?Z31.83 - Encounter for assisted reproductive fertility procedure cycle (ICD-10) Diabetes ?E11.9 - Type 2 diabetes mellitus without complications (ICD-10) HTN (hypertension) ?I10 - Essential (primary) hypertension (ICD-10) Surgical History History of dilation and curettage ?Z98.890 - Other specified postprocedural states (ICD-10) History of tubal ligation ?Z98.51 - Tubal ligation status (ICD-10) History of hysteroscopy ?Z98.890 - Other specified postprocedural states (ICD-10) Previous section ?Z98.891 - History of uterine scar from previous surgery (ICD-10) History of fasciotomy ?Z98.890 - Other specified postprocedural states (ICD-10) History of laparoscopy ?Z98.890 - Other specified postprocedural states (ICD-10) Social History Little interest or pleasure in doing things: not at all Feeling down, depressed, or hopeless: not at all Exam Narrative Exam Narrative: General: Mildly distressed, appears to be in pain, age-appropriate Skin: Warm, dry, no pallor. No rash. Head: Normocephalic, atraumatic. Neck: Supple, non-tender. Eye: Pupils are equal, round and EOMI. No scleral icterus. Ears, Nose, Mouth, and Throat: No nasal mucosal hypertrophy. Oral mucosa is moist, no posterior oropharynx erythema, uvula is mid-line Cardiovascular: Regular Rate and Rhythm without murmur, gallop or rub. Respiratory: No accessory muscle use or respiratory distress. Lungs are clear to auscultation, no wheezing, rales or rhonchi Chest Wall: no tenderness Musculoskeletal: Full ROM of all extremities, no calf or popliteal tenderness GI: Abdomen is soft, non-distended, RUQ, epigastric tenderness with palpation. No masses appreciated. No rebound, guarding, or rigidity noted. Neurological: A&O x4. No cranial nerve dysfunction observed. No truncal ataxia. Moves all extremities. Sensation intact. Psychiatric: Cooperative and interactive. Normal mood and affect. Constitutional Vital Signs, click to edit/add: Last Vital Signs Pulse 88 07/08/25 13:09 Resp 16 07/08/25 13:09 BP 126/105 H 07/08/25 13:09 Pulse Ox 99 07/08/25 13:09 O2 Del Method Room Air 07/08/25 13:09 Course Vital Signs Vital signs: Vital Signs Pulse Rate 88 07/08/25 13:09 Respiratory Rate 16 07/08/25 13:09 Blood Pressure 126/105 H 07/08/25 13:09 Pulse Oximetry 99 07/08/25 13:09 Oxygen Delivery Method Room Air 07/08/25 13:09 Pulse Rate 88 07/08/25 13:09 Respiratory Rate 16 07/08/25 13:09 Blood Pressure 126/105 H 07/08/25 13:09 Pulse Oximetry 99 07/08/25 13:09 Oxygen Delivery Method Room Air 07/08/25 13:09 Medical Decision Making MDM Narrative Medical decision making narrative: This is a 49-year-old female with a PMH of DM on no insulin, HTN, and depression that presents with about 3 hours of nausea, vomiting, and diarrhea that started about 10 AM this morning. She did have a bout of this last Monday that lasted about 36 hours. She has RUQ and epigastric pain. She denies any abdominal surgeries or any known gallstones. She has had her tubes tied, has not had a menstrual cycle in about 7 years. She denies any sick contacts, new medications, or any fever. She has been having cold sweats. On arrival patient appears distressed, vitals are hemodynamically stable. She is 99% O2 saturations on room air. She was vomiting in triage. She does have RUQ/epigastric tenderness with palpation, no rebound tenderness. Abdomen is nonperitoneal. Pain is intermittent on my exam. IV placed. EKG ordered. 1 L normal saline ordered. CBC, CMP, lipase, UA all ordered. RUQ ultrasound ordered. Zofran 4 mg IV, 0.5 mg Dilaudid IV ordered. EKG, NSR, no ST elevation, no ischemic changes. Troponin within normal limits. RUQ Abdominal pain - RUQ US?no acute findings, fatty infiltration of liver, the adenomyomatosis - Leukocytosis, WBC 24 with left shift - Afebrile - CT Ab/ Pelvis w/o: No acute process, cirrhotic liver - Repeat Zofran 4 mg IV given, 20 mg Pepcid IV given. Patient did pass clear liquid p.o. challenge, drank a whole bottle of water while in the department. Patient observed for 4 hours after medications given and no further vomiting. Pain controlled. - I discussed results with patient, CT and ultrasound results printed and handed to patient. Incidental findings of adenomyomatosis and cirrhotic liver discussed. No surgical abdomen on imaging; abdominal pain likely secondary to UTI/pyelonephritis or gastroenteritis. - Zofran 4 mg ODT and Pepcid 20 mg daily prescribed at discharge. Clear liquid diet, advance as tolerated. TIMMY - Cr 1.27, baseline around 0.8 - Hgb 17.5, baseline around 14?supports dehydration - 1 L normal saline given in ED UTI - Asympomatic - Proteinuria >300, glucose 100, ketones 15, moderate bilirubin, trace leukocyte esterase, 2?5 WBC, casts, large bacteria - Cefdinir 300 mg twice daily x 10 days 49-year-old female with history of DM2, hypertension, depression that presents with intermittent RUQ/epigastric pain, nausea, vomiting, and diarrhea. Labs significant for WBC 24.8 ?10?/?L, Cr 1.27 (baseline 0.8), Hgb 17, anion gap 16. UA notable for proteinuria, bacteriuria, and casts. Imaging (US and non-contrast CT abdomen/pelvis) shows no acute abdominal pathology; incidental findings include cirrhotic liver and gallbladder adenomyomatosis. Clinical picture consistent with UTI with dehydration and mild TIMMY. Patient given IV fluids, pain medication, and antiemetics. Patient tolerating clear liquids in ED, no further vomiting. I discharged patient with prescription for antibiotics for UTI and Zofran for nausea, start on clear liquids and progress as tolerated. Urine culture to be followed; patient educated on hydration, warning signs, and follow-up with primary care. Return precautions discussed for any new or worsening symptoms. Patient's vital signs remained stable while in the ED, pain control, and patient discharged with appropriate medications and follow-up. She will discuss incidental findings with her PCP. Differential Diagnosis Differential Diagnosis: Biliary colic, cholelithiasis, cholecystitis, gastroenteritis, pancreatitis Lab Data Lab results reviewed: Yes I reviewed the patient's lab results Labs: Lab Results 07/08/25 07/08/25 Range/Units 14:05 15:20 WBC 24.8 H (4.0-11.0) 10^3/uL RBC 6.23 H (4.20-5.40) 10^6/uL Hgb 17.5 H (12.0-16.0) g/dL Hct 52.8 H (36.0-48.0) % MCV 84.8 (81.0-99.0) fL MCH 28.1 (26.7-34.0) pg MCHC 33.1 (29.9-35.2) g/dL RDW 13.4 (11.0-15.0) % Plt Count 356 (150-450) 10^3/uL MPV 10.1 (9.5-13.5) fL Seg Neuts % (Manual) 89.0 H (43.0-75.0) Lymphocytes % (Manual) 6.0 L (20.5-60.0) % Monocytes % (Manual) 4.0 (1.7-12.0) % Eosinophils % (Manual) 1.0 (0.9-7.0) % Basophils % (Manual) 0.0 L (0.2-2.0) % Neutrophils # (Manual) 22.07 H (1.4-6.5) 10^3/uL Lymphocytes # (Manual) 1.48 (1.20-3.80) 10^3/uL Monocytes # (Manual) 0.99 H (0.30-0.80) 10^3/uL Eosinophils # (Manual) 0.24 (0.00-0.70) 10^3/uL Basophils # (Manual) 0.00 (0.00-0.10) 10^3/uL Sodium 139 (136-145) mmol/L Potassium 3.8 (3.5-5.1) mmol/L Chloride 103 (98-107) mmol/L Carbon Dioxide 23.7 (21.0-32.0) mmol/L Anion Gap 16.1 BUN 12.0 (7.0-18.0) mg/dL Creatinine 1.27 H (0.55-1.02) mg/dL Est GFR ( Amer) 54 L (>=60 mL/min/1.73m^2) Est GFR (Non-Af Amer) 45 L (>=60 mL/min/1.73m^2) BUN/Creatinine Ratio 9.4 Glucose 171 H (74-106) mg/dL Calcium 10.2 H (8.5-10.1) mg/dL Total Bilirubin 0.8 (0.2-1.0) mg/dL AST 20 (15-37) U/L ALT 33 (14-59) U/L Alkaline Phosphatase 98 (46-116) U/L Troponin I High Sens <4.0 L (4.0-51.3) pg/mL Total Protein 8.6 H (6.4-8.2) g/dL Albumin 4.8 (3.4-5.0) g/dL Globulin 3.8 g/dL Albumin/Globulin Ratio 1.3 Lipase 26.0 (16.0-77.0) U/L Urine Color Dk. yellow (YELLOW) Urine Clarity Sl cloudy (CLEAR) Urine pH 5.5 (5.0-9.0) Ur Specific [place] >=1.030 A (1.005-1.025) Urine Protein >=300 A (NEG/TRACE) mg/dL Urine Glucose (UA) 100 A (NEGATIVE) mg/dL Urine Ketones 15 A (NEGATIVE) mg/dL Urine Occult Blood Negative (NEGATIVE) Urine Nitrite Negative (NEGATIVE) Urine Bilirubin Moderate A (NEGATIVE) Urine Urobilinogen 1.0 (0.2-1.0) EU/dL Ur Leukocyte Esterase Trace A (NEGATIVE) Urine RBC 0-2 (0-2) #/HPF Urine WBC 2-5 A (NONE SEEN) #/HPF Ur Squamous Epith Cells Few A (NONE/RARE) #/LPF Urine Crystals Seen A (None Seen) #/HPF Calcium Oxalate Crystal Few Amorphous Sediment Few Urine Bacteria Large A (NONE SEEN) #/HPF Urine Casts Seen A (NONE SEEN) #/LPF Hyaline Casts Moderate Urine Mucus Trace A (NONE SEEN) Ur [place] Indicated[place] [place] scan - abdomen: Attestation: I have reviewed the pertinent imaging results. Radiologist's impression: ITS Impressions Upper Quadrant Ultrasound 07/08/25 14:09 IMPRESSION: FATTY INFILTRATION OF THE LIVER. ADENOMYOMATOSIS. NO ACUTE FINDINGS.. Impression dictated by: Lee Corey Jr., D.O. 07/08/2025 3:20 PM Dictation Location: [email or web address] Electronically authenticated by: [id number] Y Date: 07/08/2025 15:20 Abdomen/Pelvis CT 07/08/25 15:40 IMPRESSION: No acute process. Cirrhotic liver. Impression dictated by: Lee Corey Jr., D.O. 07/08/2025 4:28 PM Dictation Location: [email or web address] Electronically authenticated by: [id number] Y Date: 07/08/2025 16:28 ECG Data Attestation: ?I have reviewed the pertinent ECG results. Discharge Plan Discharge Chief Complaint: Nausea/Vomiting/Diarrhea Clinical Impression: Acute dehydration, UTI (urinary tract infection), Leukocytosis, Abdominal pain Patient Disposition: Home, Self-Care Time of Disposition Decision: 17:32 Condition: Good Mode of Transportation: Private Vehicle Prescriptions / Home Meds: New ondansetron 4 mg tablet,disintegrating 4 mg PO Q8H PRN (Reason: nausea and vomiting) Qty: 14 0RF cefdinir 300 mg capsule 300 mg PO BID 10 Days Qty: 20 0RF famotidine [Pepcid] 20 mg tablet 20 mg PO DAILY Qty: 14 0RF No Action atenolol 50 mg tablet 50 mg PO DAILY furosemide 20 mg tablet 20 mg PO DAILY potassium chloride [Klor-Con 10] 10 mEq tablet extended release 10 meq PO DAILY lisinopril 5 mg tablet 5 mg PO DAILY metformin 1,000 mg tablet 1,000 mg PO QDAY tizanidine 4 mg tablet See Rx Instructions .ROUTE .COMPLEX PRN (Reason: muscle spasticity) Qty: 225 0RF Rx Instructions: 1/2 TABLET IN AM 2 TABLETS @HS #225 FOR 3 MONTH SUPPLY oxycodone-acetaminophen [Percocet] 5-325 mg tablet 1 tab PO TID PRN (Reason: pain, moderate-severe) Qty: 21 0RF tizanidine 4 mg capsule See Rx Instructions .ROUTE .COMPLEX PRN (Reason: muscle spasticity) Qty: 225 0RF Rx Instructions: 1/2 TAB IN AM PRN, 1-2 TABS @HS PRN tizanidine 4 mg tablet See Rx Instructions .ROUTE .COMPLEX PRN (Reason: muscle spasticity) Qty: 120 2RF Rx Instructions: 1-2 tabs twice daily as needed ibuprofen 600 mg tablet 600 mg PO DAILY PRN (Reason: pain) bupropion HCl 300 mg tablet extended release 24 hr 300 mg PO QDAY escitalopram oxalate 10 mg tablet 10 mg PO QDAY Print Language: Maltese Instructions: Dehydration (ED), Urinary Tract Infection in Women (ED), Abdominal Pain (ED) Referrals: Kelechi Galvan DO [Primary Care Provider, Internal Medicine] - 1 week Discharge Date/Time: 07/08/25 17:56
--- NOTE | 2025-07-08 14:07 | ECG_ITS ---
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 Measurements Intervals [place] Rate: 95 P: 58 IL: 162 QRS: 35 QRSD: 90 T: 42 QT: 358 QTc: 411 Interpretive Statements 1100 Sinus rhythm 9110 normal ECG Compared to ECG 10/18/2018 04:39:44 ST (T wave) deviation no longer present Electronically Signed On 07-08-2025 18:59:10 EDT by CORBY DUBOIS M.D.
--- NOTE | 2025-07-08 14:09 | US_ITS ---
[address] [address] Patient Name: ELISA SANTOS MRN: [id number] date: 1975 Sex: F Assigned Patient Location: ER Current Patient Location: ER Accession/Order Number: [id number] Exam Date: 07/08/2025 14:10 Report Date: 07/08/2025 15:20 At the request of: BEENA SUMNER Procedure: US right upper quadrant LIMITED ABDOMINAL ULTRASOUND: CLINICAL HISTORY: RUQ pain, N/V/D COMPARISON: None TECHNIQUE: Grayscale and color Doppler images of the right upper quadrant organs were obtained. FINDINGS: Pancreas: Visualized portions appear unremarkable. Liver: Fatty infiltration. Hepatopedal flow is seen within the portal vein. Gallbladder: Adenomyomatosis. No stones or sludge. No wall thickening. CBD: 4 mm RT KIDNEY: No Hydronephrosis 3.6 cm cyst US/US right upper quadrant IMPRESSION: FATTY INFILTRATION OF THE LIVER. ADENOMYOMATOSIS. NO ACUTE FINDINGS.. Impression dictated by: Lee Corey Jr., D.O. 07/08/2025 3:20 PM Dictation Location: [place] [address] Electronically authenticated by: [id number] Y Date: 07/08/2025 15:20
[2025-07-08 14:20] LABS: Hematocrit 52.8 % (36.0-48.0); Hemoglobin 17.5 g/dL (12.0-16.0); Mean Corpuscular HGB Conc 33.1 g/dL (29.9-35.2); Mean Corpuscular Hemoglobin 28.1 pg (26.7-34.0); Mean Corpuscular Volume 84.8 fL (81.0-99.0); Platelet Count 356 10^3/uL (150-450); Red Blood Count 6.23 10^6/uL (4.20-5.40); White Blood Count 24.8 10^3/uL (4.0-11.0)
[2025-07-08] MEDS: 0.9 % SODIUM CHLORIDE 1,000 ML 1000 ML IV (14:25)
[2025-07-08] MEDS: HYDROMORPHONE HCL 0.5 MG/0.5 ML SYRINGE IV (14:25)
[2025-07-08 14:39] LABS: Alanine Aminotransferase 33 U/L (14-59); Albumin Globulin Ratio 1.3; Albumin Level 4.8 g/dL (3.4-5.0); Alkaline Phosphatase 98 U/L (46-116); Anion Gap 16.1; Aspartate Amino Transferase 20 U/L (15-37); Blood Urea Nitrogen 12.0 mg/dL (7.0-18.0); Calcium 10.2 mg/dL (8.5-10.1); Carbon Dioxide 23.7 mmol/L (21.0-32.0); Chloride 103 mmol/L (98-107); Estimated GFR (African America 54 (>=60 mL/min/1.73m^2); Estimated GFR (Non-African Ame 45 (>=60 mL/min/1.73m^2); Globulin 3.8 g/dL; Glucose 171 mg/dL (74-106); Lipase 26.0 U/L (16.0-77.0); Potassium 3.8 mmol/L (3.5-5.1); Sodium 139 mmol/L (136-145); Total Protein 8.6 g/dL (6.4-8.2)
[2025-07-08 15:21] LABS: Basophils Abs Manual 0.00 10^3/uL (0.00-0.10); Basophils Percent Manual 0.0 % (0.2-2.0); Eosinophils Absolute Manual 0.24 10^3/uL (0.00-0.70); Eosinophils Percent Manual 1.0 % (0.9-7.0); Lymphocytes Absolute Manual 1.48 10^3/uL (1.20-3.80); Lymphocytes Percent Manual 6.0 % (20.5-60.0); Monocytes Absolute Manual 0.99 10^3/uL (0.30-0.80); Monocytes Percent Manual 4.0 % (1.7-12.0); Segmented Neut Absolute Manual 22.07 10^3/uL (1.4-6.5); Segmented Neutrophils % Manual 89.0 (43.0-75.0)
--- NOTE | 2025-07-08 15:40 | CT_ITS ---
The [address] [address] Patient Name: ELISA SANTOS MRN: [id number] date: 1975 Sex: F Assigned Patient Location: ER Current Patient Location: ER Accession/Order Number: [id number] Exam Date: 07/08/2025 16:00 Report Date: 07/08/2025 16:28 At the request of: BEENA SUMNER Procedure: CT abdomen pelvis wo con CT ABDOMEN AND PELVIS WITHOUT INTRAVENOUS CONTRAST: CLINICAL HISTORY: RUQ pain, neg US COMPARISON: CT abdomen and pelvis 02/09/2021 TECHNIQUE: Spiral images were obtained through the abdomen and pelvis without intravenous contrast. This CT exam was performed using one or more following dose reduction techniques: Automated exposure control, adjustment of the mA and/or kV according to patient size, or use of iterative reconstruction technique. FINDINGS: Lung Bases: [No acute findings.] Organs:Suboptimal evaluation due to lack of IV contrast. Cirrhotic liver. Gallbladder spleen pancreas and adrenal glands all appear unremarkable. Left kidney appears unremarkable. Cyst right kidney. Aorta appears normal in caliber.[ GI: Stomach is grossly unremarkable. Small bowel appears nondilated. No acute colonic abnormality. Appendix is normal.[ Pelvis:[Tubal ligation. Uterus is grossly unremarkable. Urinary bladder is minimally distended.] Peritoneum/Retroperitoneum:No free air or free fluid or lymphadenopathy.[ Abd wall/Bones:Abdominal wall demonstrates no acute findings. Osseous structures demonstrate degenerative change.[ CT/CT abdomen pelvis wo con IMPRESSION: No acute process. Cirrhotic liver. Impression dictated by: Lee Corey Jr., DNileONile 07/08/2025 4:28 PM Dictation Location: [facility] Electronically authenticated by: [id number] Y Date: 07/08/2025 16:28
[2025-07-08 15:45] LABS: Glucose Urine UA 100 mg/dL (NEGATIVE)
[2025-07-08 16:20] LABS: Crystals Seen? Seen #/HPF (None Seen)
[2025-07-08 16:21] LABS: Cast Seen? SEEN #/LPF (NONE SEEN)
[2025-07-08 16:22] LABS: Urine Culture Indicated YES-FRMC
[2025-07-08] MEDS: FAMOTIDINE/PF 20 MG/2 ML VIAL IV (17:12)
== END 2025-07-08 17:56 | disposition home or self-care (01) ==
PROVIDERS: Physician Assistant; Emergency Provider Emergency Medicine; PCP Internal Medicine
DX: N39.0 Urinary tract infection, site not specified (principal); E86.0 Dehydration; R10.11 Right upper quadrant pain; D72.829 Elevated white blood cell count, unspecified; E11.9 Type 2 diabetes mellitus without complications; I10 Essential (primary) hypertension; F32.A Depression, unspecified; Z98.51 Tubal ligation status; Z79.84 Long term (current) use of oral hypoglycemic drugs; N17.9 Acute kidney failure, unspecified
CPT/HCPCS: 36415; 74176; 76705; 80053; 81001; 83690; 84484; 85007; 85027; 87086; 93005; 96361; 96374; 96375; 96376; 99285; J1171; J2405; J3490

== ENCOUNTER 2025-07-11 07:46 | Outpatient (OUT) | payer OTHER, SELFPAY ==
--- OUTSIDE RECORDS SUMMARY | 2024-03-05 11:30 | XMS_ITS ---
Author Organization [facility] in [place] Address [address] [place] [address] Care Team Providers Care Legal Billing Analyst Name Role Phone Kelechi Galvan DO Primary Care Provider Unavaila Austyn Shipley Unavailable [phone] REASON FOR VISIT 3 week f/u Encounters Encounter Location Date Provider Diagnosis [facility] (PODIATRY) [address] [place] [address] [place] [address] 03/05/2024 Austyn Ott Plan Of Treatment No Information Progress Notes * Jing GRAYDOB:1975 ( 49 yo F)Acc No.[id number]:03/05/2024 UNLOCKED PROGRESS NOTE Follow Up Patient: Jing PAT :?Austyn Ott DPM, MSDOB:1975???Age: 48 Y???Sex:FemaleDate:4Phone:[phone]:[id number] [id number]:Kelechi Galvan DO Subjective: * Chief Complaints: * 1 . 3 week f/u. * Medical History: Objective: * Vitals: Assessment: Plan: * Treatment: * * Electronic signature of Austyn Ott DPM on 07/11/2025 at 07:52 AM EDTSign off status: PendingVisit Status:?CANC (Cancelled) * Provider: La Ott DPM, MS Date: 0 03/05/2024 Generated for Printing/Faxing/eTransmitting on:?07/11/2025 07:52 AM EDT
--- OUTSIDE RECORDS SUMMARY | 2025-07-09 20:30 | XMS_ITS | Continuity of Care Document ---
Author Organization [facility] Address [address] [place] [address] Phone Care Team Providers Care Buckle Attacher Name Role Phone Kelechi Galvan DO Primary Care Provider Kelechi Galvan DO Attending Provider [phone] Emiliana Gilbert PA-C Attending Provider Care Teams Patient Care Team Team Status: Active Member Role/Relationship Status Dates Kelechi Galvan DO Primary Care Provider Active Visit Care Team Team Status: Inactive Member Role/Relationship Status Dates Kelechi Galvan DO Primary Care Provider Active Start: April 23, 2025 End: April 23Tyler Elias ProviderActiveStart: April 23, 2025 End: April 23, 2025 Visit Care Team Team Status: Active Member Role/Relationship Status Dates Kelechi Galvan DO Primary Care Provider Active Start: July 08, 2025 Nori Albert ProviderActiveStart: July 08, 2025 Visit Care Team Team Status: Inactive Member Role/Relationship Status Dates Emiliana Gilbert PA-C Attending Provider Active Start: July 08, 2025 End: July 08, 2025 Visit Care Team Team Status: Inactive Member Role/Relationship Status Dates Kelechi Galvan DO Primary Care Provider Active Start: July 09, 2025 End: July 09Tyler Elias ProviderActiveStart: July 09, 2025 End: July 09, 2025 Chief Complaint and Reason for Visit Chief Complaint Admit Date 4 month f/u-HIGH RISK April 23, 2025 8:21am Unknown July 08, 2025 3 :20pm ER f/u - HIGH RISK July 09, 2025 2 :52pm Reason for Visit Admit Date Low back [...] for colon cancer April 23, 2025 8:21am Abdominal pain July 09, 2025 2 :52pm Acute cystitis July 09, 2025 2 :52pm Diarrhea July 09, 2025 2 :52pm Metabolic dysfunction-associ ated steatotic liver disease (MASLD) July 09, 2025 2:52pm Nausea & vomiting July 09, 2025 2 :52pm Neutrophilic leukocytosis July 09, 2025 2:52pm Allergies, Adverse Reactions, Alerts Allergen Type Severity Reaction Last Updated Verified Status Comments doxycycline Allergy Unknown Unknown Reaction July 09, 2025 2:58pm Yes Active penicillin G benzathineAllergyUnknownUnknown ReactionOct2024 2:58pm YesActiveOnset Date: 12/21/2006 Social History Smoking Status Status Start Date End Date Date of Observa tion Ex-smoker (finding) January 27, 2024 1:17pm Observation Status Observation Response Date of Response Legal Sex [facility] (finding) [facility] Family History Relationship Condition Age at Onset Recorded Date/T milka father Unknown Malignant neoplasmUnknownHypertensionUnknownHeart diseaseUnknownmotherMalignant neoplasmUnknownHistory of malignant neoplasm of skinUnknown Problems Active Problems Problem Diagnosis/Recorded Date Onset Date Status C omments Carpal tunnel syndrome of ri ght wrist June 21, 2024 12:21pm Unknown Active Acute cystitisOctober 2024 9:44pmUnknownActiveMajor depressionJune 21, 2024 12:22pmUnknownActiveMetabolic dysfunction-associated steatotic liver disease (MASLD)July 09, 2025 8:48pmUnknownActiveInsomniaOctober 2023 12:22pmUnknownActiveOSA (obstructive sleep apnea)October 27, 2023 11:20am UnknownActiveScreening for colon cancerAugust 2024 8:59amUnknownActiveType 2 diabetes mellitus with hyperglycemiaMay 2023 7:32amUnknownActiveScreening mammogram for breast cancerAugust 21, 2024 11:17pmUnknownActiveRenal cyst, acquired, rightOctober 2024 7:55pmUnknownActiveUS: 3.6cm cyst - T: renal cyst - 06/2025Low back painApril 2024 9:06amUnknownActiveSubclinical hypothyroidismApril 2024 9:23pmUnknownActiveNeutrophilic leukocytosis July 09, 2025 9:44pmUnknownActivePalpitationAugust 2023 9:02amUnknown ActiveProlactinomaFebruary 2023 11:20amUnknownActiveDiarrheaOctober 2024 9:45pmUnknownActiveWellness examinationAugust 21, 2024 11:17pmUnknown ActiveCirrhosis of liverOctober 2024 7:37pmUnknownActiveCT: cyst right kidney, cirrhotic liver - 06/2025Primary hypertensionFebruary 2023 11:20am UnknownActivePanic attackOctober 2023 12:22pmUnknownActiveNausea & vomitingOctober 2024 9:45pmUnknownActiveAbdominal painOctober 2024 9:45pmUnknownActiveLumbar spondylosisMay 2023 7:35amUnknownActive Adenomyomatosis of gallbladderOctober 2024 7:57pmUnknownActiveCT/US - 06/2025ObesityMay 2023 8:56amUnknownActive Medications Medication Status Dose Units Route Directions Qty Days Refills S tart Date Stop Date End Date Reason(s) Instructions Adherence Phentermine 37.5 mg tablet Discontinued 37.5 MG PO Daily 30 30 0 Mar ch 2023 12:43pm December 20, 2023 6:11pmMorbid or severe obesity due to excess calories Morbid (severe) obesity due to excess caloriesbefore breakfastPhentermine 37.5 mg cqffzdQuerepdeevdr33.0TNKKXfniq44746Trkmd 2023 6:10pmMay 2023 5:54pmMorbid or severe obesity due to excess calories Morbid (severe) obesity due to excess caloriesbefore breakfastPhentermine 37.5 mg oeyapbUhcacetjgyqb06.8ECDRQzkvj58322Lpw 2023 5:54pmJune 2023 6:10pmMorbid or severe obesity due to excess calories Morbid (severe) obesity due to excess caloriesbefore breakfastPhentermine 37.5 mg vcpeawZjzcrxgbmhgk87.9NOXHBsmpw07381Omwt 2023 6:10pmJune 2023 4:58pmMorbid or severe obesity due to excess calories Morbid (severe) obesity due to excess caloriesbefore breakfastPhentermine 37.5 mg llwzutXgaiwyybnpmr29.6PRGQGkifn17375Xaee 2023 4:58pmJuly 2023 2:20pmMorbid or severe obesity due to excess calories Morbid (severe) obesity due to excess caloriesbefore breakfastEscitalopram Oxalate 10 mg eoriswTqnqxrqhvgpt86SSPGRtrhm688Yumx 2023 9:59amOctober 2023 12:13pmPhentermine 37.5 mg mwxefrWzycbzyqzysk02.8HDVAVthkq86617Vuxy 2023 2:20pmJuly 2023 2:21pmMorbid or severe obesity due to excess calories Morbid (severe) obesity due to excess caloriesbefore breakfastPhentermine 37.5 mg obxbstYslcoukplmxf37.5PLEYQlqtn44240Mxye 2023 2:21pmAugust 2023 1:35pmMorbid or severe obesity due to excess calories Morbid (severe) obesity due to excess caloriesbefore breakfastMetformin 1,000 mg tabletDiscontinued0.ROUTE.JEEJYSP8756Slxq 2023 8:45amAugust 2023 8:33amTAKE 1 TABLET BY MOUTH TWICE A DAY FOR 30 DAYSLisinopril 5 mg tablet Discontinued0.ROUTE.LZCWWCQ579Oylg 2023 9:59amJuly 2024 8:10amTAKE 1 TABLET BY MOUTH EVERY DAYAtenolol 50 mg tabletDiscontinued0.ROUTE.JVVCHFQ116Piuz 2023 9:59amJuly 2024 8:10amTAKE 1 TABLET BY MOUTH EVERY DAY Phentermine 37.5 mg cniqafAwvvmfvvtvzl05.8QMUDJcrgl26383Sauvew 2023 1:35pm May 28, 2024 2:05pmMorbid or severe obesity due to excess calories Morbid (severe) obesity due to excess caloriesp/u 04/24, start 04/26Phentermine 37.5 mg ecfvjuTlcybbjlatzx31.2GMKUCjvzq79356Hmkqwzqmd 2023 2:05pmOctober 2023 12:11pmMorbid or severe obesity due to excess calories Morbid (severe) obesity due to excess caloriesstart 05/28Blood Sugar Diagnostic (Onetouch Ultra Test) stripDiscontinued0.Fuoud561Mdprxzbgf 30th, 2024 12:00am June 10, 2024 12:36pmto test once dailyBlood Sugar Diagnostic (Onetouch Ultra Test) stripActive0.ROUTE.QMZEUMN6228Tjfyrutow 2023 12:36pmUSE 1 STRIP TO CHECK HOME BLOOD SUGAR ONCE DAILYCetirizine 10 mg tabletDiscontinued0 .ROUTE.HWVWDGS736Exnopur 13th, 2024 12:17pmJune 2024 5:20pmTAKE 1 TABLET BY MOUTH EVERY DAYBupropion Hcl 150 mg tablet extended release 24 hrDiscontinued 150MGPOEvery pzefehl97919Ojaasnn 14th, 2024 12:00amOctober 2023 1:19pm Hydroxyzine Hcl 50 mg dcesvnOamixmnqumrm32ZTNETxlpo at bedtime as needed for dhbvqee479Nqluyuv 2023 12:42pmFebruary 2024 2:49pmBupropion Hcl 300 mg tablet extended release 24 qtYtjepuouxsig816JJFZSyfbp ixthngr74065Hssqwit 25th, 2024 1:19pmNov2023 1:53pmEscitalopram Oxalate 10 mg tablet Izjpqqpvqnnn37SFYISfdec09463Wczcgaq 25th, 2024 1:19pmNov2023 9:45pm Bupropion Hcl 300 mg tablet extended release 24 sdDukxarkdjvkt166NWKROitix mzcelrr41613Djmanrij 4th, 2024 1:52pmNovember 2023 10:06pmEscitalopram Oxalate 20 mg tabletDiscontinued0.ROUTE.UBAEZCA205Mutdqdne 4th, 2024 9:45pmApril 2024 8:56amTAKE 1 TABLET BY MOUTH EVERY DAYBupropion Hcl 300 mg tablet extended release 24 hrDiscontinued0.ROUTE.ALXHSOL601Vohcftte 26th, 2024 10:05pm January 30, 2025 7:36amTAKE 1 TABLET BY MOUTH EVERY MORNINGLevofloxacin 750 mg toisdiQhxvrbwfuixz401RBTNCided644Uwrkqqdm 2023 1:00amFebruary 2024 2:45pmFurosemide 20 mg xfwtuzIecrlo87BRNPQsjgp64278Cuekb 2024 10:29pm Complies with drug therapyBupropion Hcl 300 mg tablet extended release 24 hr Active0.ROUTE.DKYOWYQ016Xyc 22nd, 2025 7:36amTAKE 1 TABLET BY MOUTH EVERY DAY IN THE MORNINGComplies with drug therapyPotassium Chloride (Klor-Con 10) 10 mEq tablet extended vwpjvriUipwdk57BWNLFJygfg53293Bqux 2024 12:00amComplies with drug therapyCetirizine 10 mg tjdkntHynmhzplmrpf28NUHSGawln57143Scat 2024 5:19pmAugust 2024 8:29amAtenolol 50 mg tabletActive0.ROUTE.TVBJJIR247 March 30, 2025 8:10amTAKE 1 TABLET BY MOUTH EVERY DAYComplies with drug therapy Lisinopril 5 mg tabletActive0.ROUTE.FFIESUX005Josd 2024 8:10amTAKE 1 TABLET BY MOUTH EVERY DAYComplies with drug therapyEscitalopram Oxalate 10 mg asfantHuudii88JDZYBskti02989Iuoqgp 2024 3:44pmComplies with drug therapy Nirmatrelvir-Ritonavir (Paxlovid) 300 mg (150 mg x 2)-100 mg tablets,dose pack Vbsuethiicry5HZztd package tygqajzlsk4621Tzbksxdt 2023 1:00amApril 2023 6:10pmtake TWO 150 mg tablets of nirmatrelvir with ONE 100 mg tablet of ritonavir twice daily for 5 days orally per package directions;Escitalopram Oxalate 10 mg xwddchOwzenucvtppp80ESDJFyartUzmljhab 2023 1:00amJuly 2023 9:59amDulaglutide (Trulicity) 4.5 mg/0.5 mL pen injectorDiscontinued4.5MG SUBCUTevery weekFebruary 2023 1:00amFebruary 2024 2:49pm Dapagliflozin Propanediol (Farxiga) 5 mg gmabbrLzkvhpsccfut6OREBZnsleZkjsfajz 2023 1:00amJune 2023 1:07pmAtenolol 50 mg qugajoNjnwhinplksz14SLFF DailyFebruary 2023 1:00amJuly 2023 9:59amFurosemide 20 mg tablet Ibzflnmgcano28KQJUZskmhMxilypel 2023 1:00amMarch 2024 10:29pm Lisinopril 5 mg qbojorIcqkckojdhra5YDMOIyongJdntpgzl 2023 1:00amJuly 2023 9:59amBaclofen 10 mg ctygkfEcuufbhvinin81HIUBWygld dailyFebruary 2023 1:00amMay 2023 1:15pmPhentermine 37.5 mg datncfQjpatnfnwjwk78.5MGPODaily October 27, 2023 1:00amMarch 2023 12:45pmbefore breakfastTizanidine 4 mg lmeyyiFfofdztuiwoi1MJRRHmcyh at bedtimeFebruary 2023 1:00amDecember 2023 9:57amCetirizine 10 mg grdxhyDkvqwkcaskgm87FSIAGnatcEnfdmmyy 2023 1:00amOctober 2023 12:17pmTriamcinolone Acetonide 0.5 % cream Ecclwgfijooe5DXMCGBGLLLKBCFdied dailyFebruary 2023 1:00amMay 2023 1:16pmMetformin 1,000 mg zpmppqIhxqhqzfywpu5737JOGINlrkn dailyFebruary 2023 1:00amJuly 2023 8:45amPotassium 99 mg tabletDiscontinuedMGPODaily October 27, 2023 1:00amJune 2024 5:16pmCefdinir 300 mg capsule Qeyxwrflnznh476MLUNNgdoc 12 fszls50587Pvo2023 12:00amAugust 2023 8:34amFluticasone Propionate (Flonase Allergy Relief) 50 mcg/actuation spray,zmspodgohlRughnyvqxbmv5RGTOFCDSSKBTTUJYfowb20869Wtp 2023 12:00am October 27, 2024 2:45pmadminister 2 spray into each nostrilCefdinir 300 mg jibgvleEbsstmhkfpir068NLBYIlvcm dailyDecember 2023 1:00amDecember 2023 3:19pmTizanidine 4 mg jatwisFkjnswwkwhtu6SQYIQzttk at ixqqbpk63393Gpshzfbn 13th, 2024 9:56amFebruary 2024 2:50pmCefdinir 300 mg capsuleDiscontinued 300MGPOTwice pqwwv98762Lmizlzpa 8th, 2024 1:00amDecember 2023 3:19pm Fluticasone Propionate (Flonase Allergy Relief) 50 mcg/actuation spray,qibrhdageaNqkwtergefir7NNHUDAFHUTMHIOOLsnik78420Rboatmcs 2023 1:00am December 27, 2024 8:39amadminister into each nostrilTizanidine 4 mg tabletActive8 MGPODaily at bedtimeFebruary 2024 2:50pmComplies with drug therapy Metformin 1,000 mg upezsfPlwkhm7729PNCPOslzeZlvvfv 2024 12:00amComplies with drug therapySemaglutide (Ozempic) 0.25 mg or 0.5 mg (2 mg/3 mL) pen injectorActive0.5MGSUBCUTevery jupl7874Tdjgcg 2024 12:00amfor 4 weeks Complies with drug therapyEscitalopram Oxalate 20 mg jxwqrzPvxrtebtkral66HRMK Sgyui72921Rgodaqx 11th, 2024 12:11pmOctober 2023 1:19pmHydroxyzine Hcl 25 mg fzxnkwZascasditmvk94WXVASixzj times daily as needed for jigdorc84019Jfavkud 2023 12:00amOctober 2023 12:23pmHydroxyzine Hcl 25 mg tablet Osrodqeauuyn92NPGTKwksb times daily as needed for cmcthzt9647Hpztytr 2023 12:00amOctober 2023 12:43pmBupropion Hcl 450 mg tablet extended release 24 teYxxzyizpysek685IVIHTnfbe cokpqlh27668Cnpay 2024 12:00amAugu2024 8:29amEscitalopram Oxalate 10 mg jsxkcmQpxhampucvhb32SEIMDdfxo39003Ftbdt 2024 8:55amAugust 2024 3:45pmPrednisone 20 mg sptachDpacvzwybljq23XXZFXn Vczrsrtg604Qybpk 2024 12:002024 8:29am1 tab tid w/ food x 3 days, then bid w/ food x 3 days, then qd w/ food x 3 daysTramadol 50 mg tablet Wcvxfapyvreq54OOKDUbeyy times daily as needed for lvul9872Glcvj 2024 12:002024 8:29amSpondylosis of lumbar spine Low back pain Spondylosis without myelopathy or radiculopathy, lumbar region Low back pain, unspecifiedOndansetron Hcl 4 mg tsrwrjQbwnuc9GYHKGkzog 8 hours July 09, 2025 12:00amComplies with drug therapyFamotidine 20 mg tablet Qujewm67MQGKDaaahFndwmfk 2024 12:00amComplies with drug therapyCefdinir 300 mg uwrzsyuLhycdt560XPIHXjujx dailyOctober 2024 12:00amComplies with drug therapy Procedures Procedure Date Performed Status Urine Culture July 08, 2025 active Relevant Diagnostic Tests and/or Laboratory Data Laboratory Results Test Collection Date/Time Result Date/Time Result Interpretation Reference Range Result Comment Performing Site Troponin I High Sensitivi ty July 08, 2025 2:05pm July 08, 2025 2:05pm <4.0 pg/mL Below low normal 4.0-51.3 CUT-OFF POINTS HAVE BEEN ESTABLISHED BASED ON THE FOURTHUNIVER RALF DEFINITION OF MYOCARDIAL INFARCTION. THE UPPERREFEREN CE LIMIT (URL) OF TROPONIN, DEFINED THE 99THPERCENTI LE OF cTnI DISTRIBUTION IN A REFERENCE POPULATION,H BEEN CONFIRMED THE DECISION THRESHOLD FOR MIDIAGNOSIS. 99TH PERCENTILE = 51.4 PG/MLNOTE: HIGH-SENSITI VITY TROPONIN ASSAY IS NOT INTENDED TO BEUSED IN ISOLATION BUT SHOULD BE INTERPRETED IN CONJUNCTIONW ITH OTHER DIAGNOSTIC AND CLINICAL INFORMATION. Absolute Basophils (Manual)July 08, 2025 2:05pmJuly 08, 2025 2:05pm 0.00 10 3/uL0.00-0.10HematocritOctober 2024 2:05pm52.8 %Above high normal 36.0-48.0LipaseJuly 08, 2025 2:05pmJuly 08, 2025 2:05pm26.0 U/L 16.0-77.0Anion GapJuly 08, 2025 2:05pmOctober 2024 2:05pm16.1Urine Culture ReflexedJuly 08, 2025 3:20pmJuly 08, 2025 3:20pmYES-FRMCUrine Microscopic ReviewJuly 08, 2025 3:20pmYESBasophils %July 08, 2025 2:05pmJuly 08, 2025 2:05pm0.0 %Below low normal0.2-2.0HemoglobinJuly 08, 2025 2:05pm17.5 g/dLAbove high lxannt88.0-16.0Albumin/Globulin Ratio July 08, 2025 2:05pmJuly 08, 2025 2:05pm1.3Urine Other CastsOctober 2024 3:20pmOct2024 3:20pmSEEN #/LPFAbnormal (applies to non- numeric results)NONE SEENUrine BilirubinOctober 2024 3:20pmMODERATE Abnormal (applies to non-numeric results)NEGATIVEEosinophils # (Manual)July 08, 2025 2:05pmOctober 2024 2:05pm0.24 10 3/uL0.00-0.70Mean Corpuscular HemoglobinOctober 2024 2:05pm28.1 pg26.7-34.0AlbuminOctober 2024 2:05pmOctober 2024 2:05pm4.8 g/dL3.4-5.0Urine Other CrystalsOct2024 3:20pmOctober 2024 3:20pmSeen #/HPFAbnormal (applies to non-numeric results)None SeenUrine Occult BloodOctober 2024 3:20pmNEGATIVENEGATIVE Eosinophils %July 08, 2025 2:05pmOctober 2024 2:05pm1.0 %0.9-7.0Mean Corpuscular Hemoglobin ConcentOct2024 2:05pm33.1 g/dL29.9-35.2 Alkaline PhosphataseOct2024 2:05pmOctober 2024 2:05pm98 U/L 46-116Urine Amorphous SedimentOct2024 3:20pmOctober 2024 3:20pm FEWUrine AppearanceOct2024 3:20pmSL CLOUDYCLEARLymphocytes # (Manual) July 08, 2025 2:05pmOctober 2024 2:05pm1.48 10 3/uL1.20-3.80Mean Corpuscular VolumeOctober 2024 2:05pm84.8 fL81.0-99.0Alanine Aminotransferase (ALT/SGPT)July 08, 2025 2:05pmOctober 2024 2:05pm33 U/E31-38Vsagj BacteriaOct2024 3:20pmOctober 2024 3:20pmLARGE #/HPFAbnormal (applies to non-numeric results)NONE SEENUrine ColorOct2024 3:20pmDK. YELLOWYELLOWLymphocytes %July 08, 2025 2:05pmOct2024 2:05pm6.0 %Below low .5-60.0Mean Platelet VolumeOct2024 2:05pm10.1 fL9.5-13.5Aspartate Amino Transf (AST/SGOT)July 08, 2025 2:05pm July 08, 2025 2:05pm20 U/V67-87Bzdot Calcium Oxalate CrystalsOct2024 3:20pmOct2024 3:20pmFEWUrine Glucose (UA)July 08, 2025 3:24sn452 mg/dLAbnormal (applies to non-numeric results)NEGATIVEMonocytes # (Manual)July 08, 2025 2:05pmOct2024 2:05pm0.99 10 3/uLAbove high normal0.30-0.80Platelet CountOct2024 2:82yn094 10 3/zK044-198 BUN/Creatinine RatioOct2024 2:05pmJuly 08, 2025 2:05pm9.4Urine Hyaline CastsOct2024 3:20pmOct2024 3:20pmMODERATEUrine KetonesOct2024 3:20pm15 mg/dLAbnormal (applies to non-numeric results)NEGATIVEMonocytes %July 08, 2025 2:05pmJuly 08, 2025 2:05pm4.0 %1.7-12.0Red Blood CountOct2024 2:05pm6.23 10 6/uLAbove high normal 4.20-5.40Blood Urea NitrogenOct2024 2:05pmOct2024 2:05pm 12.0 mg/dL7.0-18.0Urine MucusOct2024 3:20pmOct2024 3:20pm TRACEAbnormal (applies to non-numeric results)NONE SEENUrine Leukocyte Esterase July 08, 2025 3:20pmTRACEAbnormal (applies to non-numeric results)NEGATIVE Segmented Neutrophils # (Manual)July 08, 2025 2:05pmOctober 2024 2:05pm22.07 10 3/uLAbove high normal1.4-6.5Red Cell Distribution WidthOct2024 2:05pm13.4 %11.0-15.0Calcium LevelOct2024 2:05pmOctober 2024 2:05pm10.2 mg/dLAbove high normal8.5-10.1Urine RBCOctober 2024 3:20pmOct2024 3:31ib8-8 #/HPF0-2Urine NitriteOct2024 3:20pmNEGATIVENEGATIVESegmented NeutrophilsOct2024 2:05pmOct2024 2:05pm89.0Above high qoeift90.0-75.0Corrected White Blood Count July 08, 2025 2:05pm24.8 10 3/uLAbove high normal4.0-11.0Chloride Level July 08, 2025 2:05pmOctober 2024 2:95zb895 mmol/B48-021Kijxk Squamous Epithelial CellsOct2024 3:20pmOct2024 3:20pmFEW #/LPF Abnormal (applies to non-numeric results)NONE/RAREUrine pHOctober 2024 3:20pm5.55.0-9.0Carbon Dioxide LevelOct2024 2:05pmOctober 2024 2:05pm23.7 mmol/L21.0-32.0Urine WBCOctober 2024 3:20pmOctober 2024 3:28wc8-0 #/HPFAbnormal (applies to non-numeric results)NONE SEENUrine Protein July 08, 2025 3:20pm>=300 mg/dLAbnormal (applies to non-numeric results) NEG/TRACECreatinineOct2024 2:05pmOct2024 2:05pm1.27 mg/dL Above high normal0.55-1.02Urine Specific GravityOctober 2024 3:20pm>=1.030 Abnormal (applies to non-numeric results)1.005-1.025Estimated GFR ()July 08, 2025 2:05pmOctober 2024 2:41bj14Iiqwt low normal >=60 mL/min/1.73m 2Urine UrobilinogenOct2024 3:20pm1.0 EU/dL0.2-1.0 Estimated GFR (Non- AmericanOctober 2024 2:05pmOctober 2024 2:99tc03Whgmc low normal>=60 mL/min/1.73m 2GlobulinOct2024 2:05pm July 08, 2025 2:05pm3.8 g/dLGlucose LevelOctober 2024 2:05pmOctober 2024 2:32ym425 mg/dLAbove high qzofbo46-185Aiurbixzk LevelOctober 2024 2:05pmOctober 2024 2:05pm3.8 mmol/L3.5-5.1Sodium LevelOctober 2024 2:05pmOct2024 2:05jo647 mmol/R396-766Myyfz BilirubinOct2024 2:05pmOctober 2024 2:05pm0.8 mg/dL0.2-1.0Total ProteinOct2024 2:05pmOctober 2024 2:05pm8.6 g/dLAbove high normal6.4-8.2 Vital Signs Vital Reading Result Reference Range Collection Date/Time Height 65 [in_i] April 23, 2025 8:99vrSfwggn333.21 kgAugust 2024 8:28amHeart Rate65 /min 60-100August 2024 8:28amRespiratory rate12 /kgq72-68Elddta 2024 8:28amOxygen saturation by Pulse otbujzcc87 %95-100August 2024 8:28amBP Wfaauqic855 mm[Hg]100-140August 2024 8:28amBP Kdvnhasnw55 mm[Hg]60-100 April 23, 2025 8:28amBMI (Body Mass Index)50.3 kg/o5Rppqzv 2024 8:28am Fgwnxp11 [in_i]July 09, 2025 2:62tlMzqmru572.19 kgOcthigh[facility] 2024 2:54pm Heart Rate84 /zky43-578Ncyfylz 2024 2:54pmBP Fblsewrg746 mm[Hg]100-140 July 09, 2025 2:54pmBP Xpgckguyr54 mm[Hg]60-100Octhighlands ar[facility] 2024 2:54pmBMI (Body Mass Index)49.9 kg/u2Vpthmcl 2024 2:54pm Advance Directives Advance Directive Response Recorded Date/ Time Advance Directives No June 28, 2017 2:45pm Insurance Providers Guarantor Radha Guzman Address [address] [id number] Info.Home Phone: Coverage Status Update:2025 Payer Group Member ID Coverage Type Subscriber Relationship to Subscriber Effective Date Expiration Date Conrado HERNÁNDEZ/ALYSHA Id: [id number] Moyer , M Id: [id number] [address] [id number] Home Phone: Email: [email or web address] [id number] Moyer , M Id: [id number] [address] [place], [place] [address] Home Phone: Email: [email or web address] Id: [id number] Moyer , M Id: [id number] [address] [place], [place] [address] Home Phone: Email: [email or web address] Encounters Encounter Location(s) Arrival/Admit Date Discharge/Departure Date Discharge/Departure Disposition Provider(s) Departed Physician/ Provider Office Visit -[facility] April 23, 2025 8:21am April 23, 2025 9:15am Discharged to home care or self care (routine discharge) Kelechi Galvan DO Non-patient / Non-visit -[facility] ctober 2024 2:05pm BURAK Albert-CDeparted [facility]erred[facility] 3:20pmOctober 2024 3:21pmDischarged to home care or self care (routine discharge)BURAK Albert-CDeparted Physician/Provider [facility] 2:52pmOctober 2024 3:31pm Discharged to home care or self care (routine discharge)Kelechi Galvan DO Recent Diagnosis Onset Date Admit Date Low back pain Unknown April 23 8:21am Lumbar spondylosis Unknown April 23, 2025 8:21am Major depression Unknown April 23 8:21am Obesity Unknown April 23 8:21am REBA (obstructive sleep apnea) Unknown Au brown 2024 8:21am Primary hypertension Unknown April 8:21am Type 2 diabetes mellitus with hyperglycemia Unkn own April 23, 2025 8:21am Screening for colon cancer Unknown Augus t 2024 8:21am Abdominal pain Unknown July 09 2:52pm Acute cystitis Unknown July 09 2:52pm Diarrhea Unknown July 09 2:52pm Metabolic dysfunction-associ ated steatotic liver disease (MASLD) Unknown July 09, 2025 2:52pm Nausea & vomiting Unknown July 09, 2025 2:52pm Neutrophilic leukocytosis Unknown Octobe r 2024 2:52pm Assessments Diagnosis Onset Date Resolution Status Admit Date Low back pain acuteAugust 2024 8:21amLumbar spondylosisacuteAugust 2024 8:21am Major depressionacuteAugust 2024 8:21amObesityacuteAugust 2024 8:21amOSA (obstructive sleep apnea)acuteAugust 2024 8:21amPrimary hypertensionacute[facility]2024 8:21amType 2 diabetes mellitus with hyperglycemiaacuteAueastern [facility]2024 8:21amScreening for colon cancernoneactive April 23, 2025 8:21amAbdominal painacuteOctober 2024 2:52pmAcute cystitisacuteOctober 2024 2:52pmDiarrheaacuteOctober 2024 2:52pm Metabolic dysfunction-associated steatotic liver disease (MASLD)acuteOctober 2024 2:52pmNausea & vomitingacuteOctober 2024 2:52pmNeutrophilic leukocytosisacuteOctober 2024 2:52pm Plan of Treatment Author [facility] 9:02amI have instructed this patient to consume a healthy, low-fat, low-salt diet. I have also encouraged them to continue exercise with weight loss to achieve/maintain a BMI < 30. I have instructed this patient on the correct procedure for obtaining home BP measurements:? - rest for 5 minutes w/o talking. - positioned w/ feet on floor and arms supported. - average best 2/3 readings w/ goal < 135/85. - update office w/ home readings in 2 weeks. Continue Lisinopril and Atenolol without interruption I have instructed this patient to follow a comprehensive diabetic treatment plan. I have also instructed them to check their feet daily for calluses and nonhealing ulcers. I have instructed them to have a yearly dilated eye examination. I have reviewed their treatment goals: SBP less than 130, LDL less than 100, FBS less than 140, A1C less than 7%. I have instructed them to maintain a home BS log and bring the results to each of their office visits for review. I have explained the importance of routine monitoring of their A1C, Microalbumin and Lipids. I have explained the benefits of well controlled diabetes in preventing micro and macrovascular complications. Continue Metformin without interruption She is an excellent candidate for GLP1 therapy - she has comorbid conditions, which include: HTN, HLD, REBA, degenerative arthritis and T2DM - I recommend initiating Ozempic and titrate until satisfy BS goals and weight loss Instructed on a healthy diet and exercise routine. Instructed to continue medical treatment w/o interruption. Instructed to avoid abrupt d/c of medication due to w/d symptoms. Continues w/ breakthrough anger in evening. Suggest increasing Bupropion to 450mg qd Decrease Lexapro to 10mg q HS. f/u counseling I have instructed this patient to avoid bending, twisting or lifting. I have also instructed on use of intermittent heat and ice as needed. They may schedule a massage or gentle manipulation. I instructed them on the safe use of Tylenol, Lidocaine and stretching exercises. I informed them of alternative modes of treatment for severe pain, which may include referral to physical therapy or pain management. She is seeing pain management but next appointment is couple weeks. She has chronic low back pain w/ acute exacerbation. Instructed on stretching exercises (handouts reviewed w/ patient) Prescribed Prednisone and instructed to take w/ food - hold Motrin while taking Prednisone Prescribed Tramadol tid - aware of the possible side effects of sedation, confusion and unsteadiness - avoid use w/ work and driving f/u Pain Clinic This patient is aware of the benefits associated with treatment of REBA: With continued use, the patient reduces the risk for AK, CVA, HTN, cardiac dysrhythmias and sudden cardiac deaths. The patient is also aware of the association between REBA and morning headaches, daytime somnolence, fatigue and obesity, which also has been improved with continued use. The patient is compliant with treatment, wearing the equipment every night for greater than 4 hours. The patient is instructed to continue use of the CPAP for REBA treatment. Compliant I have instructed this patient on a low-fat, high-fiber diet.?? I have also instructed them to reduce calories, portions sizes, sweet drinks and snacks.?? I have also recommended they exercise for 30 minutes, 3-5 times weekly. They are aware of the comorbid conditions associated with excessive weight: Diabetes, HTN, Hyperlipidemia, CAD and arthritis. Holding on weight loss medication at this time. This is an asymptomatic, low risk patient, who is due for a screening. There has been no change in appetite, weight or bowel habits. There is no history of abdominal pain, heartburn, dysphagia, melena or hematochezia. Order for Cologuard printed and faxed Author Kelechi Galvan [facility] HospitalAuthoredOctober 2024 9:53pmSecondary to acute cystitis and possible pyelonephritis. Push fluids and continue antibiotics Secondary to N/V/D and dehydration? Recheck CBC Instructed to push fluids and continue antibiotics. Will f/u with urine C/S and adjust treatment as guided. Epigastric abdominal pain w/ N/V/D Symptoms have resolved following treatment in ER. - Zofran and IV pain medication Hepatic and Pancreatic enzymes normal Decrease Ozempic back to 0.5mg weekly Monitor closely for now Unsure of exact etiology Pyelonephritis? ADR to GLP1? Zofran as needed. Decrease Ozempic to previous dose of 0.5mg weekly Monitor closely May have been secondary to GLP1 use. 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 Future Tests Future scheduled test information is unavailable Pending Tests Test Name Ordered Date Scheduled Date Urine Culture July 08, 2025 3:20pm Alpha 1 Anti-TrypsinOctober 2024 8:46pmANA with ReflexOctober 2024 8:46pmHepatitis B Surface AntibodyOctober 2024 8:46pmSmooth Muscle AntibodyOctober 2024 8:46pm Future Visits Future appointment information is unavailable Future Procedures Procedure Name Ordered Date Scheduled Date Urine Culture July 09, 2025 1:03pm Octobe r 2024 3:20pm AMB Cologuard April 23, 2025 8:59am Complete Blood Count Auto DiffOctober 2024 8:50pmFerritinOctober 2024 8:46pmHepatitis B Core AntibodyOctober 2024 8:46pmHepatitis B Surface AntigenOctober 2024 8:46pmHep C Ab wRfx to Qnt PCROctober 2024 8:46pmHepatic PanelOctober 2024 8:46pmProthrombin Time INROctober 2024 8:46pm Future Medications Future medication information is unavailable Patient Instructions Instruction Admit Date Low back pain in adults April 23 5 8:21am
--- OUTSIDE RECORDS SUMMARY | 2025-07-11 07:52 | XMS_ITS | Clinical Summary ---
Author Organization [facility] Address [address] [place] [address] Care Team Providers Care Assembler Fitter Name Role Phone Kelechi Galvan Primary Care Provider [phone] Allergies Active AllergyReactionsCriticalityNoted QjcvJdooltxbKiierhjpgnu38/11/2024 Other Reaction(s): Unknown Reaction RhjiqcpzmrnLqmibii26/14/2023 Medications MedicationSigDispense QuantityRefillsLast FilledStart DateEnd DateStatus atenolol (Tenormin) 50 MG tablet Take 50 mg by mouth in the morning.04/19/2023ctive cetirizine (ZyrTEC) 10 MG tablet Take 10 mg by mouth in the morning.05/02/2023ctive Trulicity 4.5 MG/0.5ML solution pen-injector Inject 4.5 mg under the skin 1 (one) time per week.05/03/2023ctive escitalopram (Lexapro) 10 MG tablet Take 10 mg by mouth in the morning.05/15/2023ctive furosemide (Lasix) 20 MG tablet Take 20 mg by mouth in the morning.04/05/2023ctive OneTouch Ultra test strip 1 each by Other route if needed.04/29/2023ctive lisinopril 5 MG tablet Take 5 mg by mouth in the morning.05/07/2023ctive potassium chloride CR (Klor-Con) 10 MEQ ER tablet Take 10 mEq by mouth in the morning.04/30/2023ctive tiZANidine (Zanaflex) 4 MG tablet Take 4 mg by mouth every 6 (six) hours if needed.05/16/2023ctive buPROPion HCl (WELLBUTRIN PO) 07/22/2024ctive Social History Tobacco UseTypesPacks/DayYears UsedDateSmoking Tobacco: FormerCigarettes1.515 09/11/1988 - 09/11/2003Smokeless Tobacco: NeverAlcohol UseStandard Drinks/Week CommentsNever0 (1 standard drink = 0.6 oz pure alcohol)CommentsUnknown Sex and Gender InformationValueDate RecordedSex Assigned at BirthNot on file Legal OqkXuvjun06/15/2023 6:50 PM EDTGender IdentityNot on fileSexual OrientationNot on file Last Filed Vital Signs Vital SignReadingTime TakenCommentsBlood Rtwyxmzl400/7408/07/2024 1:26 PM EST Vvdew638708/07/2024 1:26 PM ESTTemperature--Respiratory Rate--Oxygen Zdijpkexwk84% 08/07/2024 1:26 PM ESTInhaled Oxygen Concentration--Bqbsqh126 kg (273 lb) 08/07/2024 1:26 PM SCDFrkwov444.1 cm (5' 5 )08/07/2024 1:26 PM ESTBody Mass Index45.43110/07/2023 1:26 PM EST Plan of Treatment Not on file Insurance Care Teams Team MemberRelationshipSpecialtyStart DateEnd Date Kelechi Galvan DO PCP - GeneralInternal Medicine05/25/23
--- OUTSIDE RECORDS SUMMARY | 2025-07-11 07:52 | XMS_ITS | Patient Health Record ---
Author Organization [facility] in [place] Address [address] [place] [address] Care Team Providers Care Staff Radiation Therapist Name Role Phone Kelechi Galvan DO Primary Care Provider Unavaila ble Allergies Allergen (clinical drug ingredient) Drug/Non Drug Allergy documented on EMR Reaction Allergy Type Onset Date Status PenicillinUnknownDrug AllergyActive Reason For Referral No Information Medications Medication SIG (Take, Route, Frequency, Duration) Notes Start Date End Date Status Naproxen 500 MG 1 tablet with food or milk as ne eded Orally every 12 hrs ActivePotassium Chloride ER 10 MEQ1 tablet with food Orally Twice a dayActive tiZANidine HCl 4 MG1 capsule at bedtime as needed Orally Once a dayActive Atenolol 50 MG1 tablet Orally Once a dayActiveDapagliflozin Propanediol 5 MG1 tablet Orally Once a dayActivediazePAM 10 MG1 tablet as needed Orally Once a day ActiveDulaglutide 4.5 MG/0.5MLas directed SubcutaneousActiveFurosemide 20 MG1 tablet Orally Once a dayActiveHYDROcodone-Acetaminophen 5-325 MGOral; Duration: 5 DaysActiveLisinopril 5 MG1 tablet Orally Once a dayActivemetFORMIN HCl 1000 MG 1 tablet with a meal Orally Once a dayActive Social History Tobacco Use: Social History Observation [...] End Date [employer] [place] [employer] [address] [place] [address] [id number] Mukesh Gray - patient is the [id number] 2023 Medical (General) History Medical History History ICD Code diabetes hypertensionSurgical History Surgery Date(Month/Year) [address] Suggs RFA [id number] ablationc-section
--- OUTSIDE RECORDS SUMMARY | 2025-07-11 07:54 | XMS_ITS | CCD ---
Author Organization [facility]ini[facility] Care Team Providers Care Renewable Energy Engineer Name Role Phone Kelechi Galvan Unavailable MARC, DR CULVER Primary Care Unavailable LAKSHMIPATHY ., NARENDRANATH Admitting Bebe vailable LAKSHMIPATHY ., NARENDRANBRUCE Consulting Bebe vailable LAKSHMIPATHY ., NARJULIANO Attending Bebe vailable ELIAS ., DR DEANN Mcguire Attending Unavailable BALL, DR CULVER Primary Care Unavailable ELIAS ., DR DEANN Mcguire Admitting Unavailable HUNG ., YOGESH Consulting Unavailable MARC, DR CULVER Primary Care Unavailable LAKSHMIPATHY ., ERINN Consulting Bebe vailable LAKSHMIPATHY ., NARENDRANATH Attending Bebe vailable LAKSHMIPATHY ., NARENDRANATH Admitting Bebe vailable LAKSHMIPATHY ., NARENDRANATH Attending Bebe vailable LAKSHMIPATHY ., NARENDRANATH Admitting Bebe vailable BALL, DR CULVER Primary Care Unavailable BALL, DR CULVER Primary Care Unavailable BALL, DR CULVER Consulting Unavailable MARC, DR CULVER Attending Unavailable BALL, DR CULVER [...] Admitting Unavailable BALL, DR CULVER Consulting Unavailable MARC, DR CULVER Attending Unavailable BALL, DR CULVER Primary Care Unavailable BALL, DR CULVER Admitting Unavailable WEST, DR ANGELA Orellana Consulting Unavailable BALL, DR CULVER Consulting Unavailable BALL, DR CULVER Attending Unavailable BALL, DR CULVER Admitting Unavailable BALL, DR CULVER Primary Care Unavailable BALL, DR CULVER Primary Care Unavailable LAKSHMIPATHY ., NARENDRANATH Admitting Bebe vailable JASONY ., NARENDRANATH Attending Bebe vailable Angélica Swann Unavailable TRINI Swann Attending Provider Kelechi Galvan MD Primary Care Provider ANTIONE MADERA Attending Unavailable Kelechi Galvan DO Primary Care Provider Kelechi Galvan DO Attending Provider Sindhu TEST DRILLER-CJeny Attending Provider Kelechi Galvan DO Primary Care Provider Kelechi Galvan DO Attending Provider Joe Becerra MD Attending Unavailable Kelechi Galvan DO Primary Care Provider Emiliana Gilbert PA-C Attending Provider [phone] Emiliana Gilbert Admitting UnavailEmiliana Coleman Attending UnavailJeny Avina Attending Unavailable Jeny Manley Admitting Unavailable Kelechi Galvan Primary Care Unavailable Aries Rincon Attending Unavailab Aries Bo Admitting Unavailab le Kelechi Galvan Primary Care Unavailable Allergies Allergy ClassificationReported Allergen(s)Allergy TypeDate of OnsetReaction(s) Facility (13 sources)Penicillin GDrug Allergypt doesn't rememberNort [place] Other (2 sources)PenicillinsDrug allergy (disorder)14-53-3298[facility] (20 sources)DoxycyclineDrug Ewegkjx70-92-1820Pogelkn, Unknown ReactionMer[facility] (2 sources)PenicillinDrug AllergyUnknowNeverware Other (9 sources)Penicillin G Benzathine & ProcDrug jeysakp90-97-5115AvwtzqkJwqmhODIMEGWU [employer] Other (2 sources)patient allergy list reviewed by nurse or physiciaPropensity to adverse rcxhubulv46-79-9436Wupetae:DoneNort [place] Other (2 sources)Allergies ReconciledPropensity to adverse reactionsShriners Hospitals for [facility] [place] Other (13 sources)Penicillin G Benzathine; Translations: [penicillin G benzathine] Allergy to kupkdpwuz63-95-5482[facility]uxcrpeMer[facility] Comment on above:Onset Date: 12/21/2006 (3 sources)PenicillinsPropensity to adverse oqpihaqxu83-86-7752MxtgmbuRPVE Healthcare Work Phone: (1 source)DoxycyclineDrug Sbkgupy16-81-6558QfqcfhoptMercy Health [facility] Rep[facility] Medications Current Medications MedicationDrug Class(es)DatesSig (Normalized)Sig (Original)atenolol 50 mg oral tablet (20 sources)beta-Adrenergic BlockerStart: 04-08-2024 End: 68-30-4345ickh 1 tablet by mouth once dailyAtenolol 50 mg tablet Active 0 .ROUTE .COMPLEX 90 3 March 30, 2025 8:10am TAKE 1 TABLET BY MOUTH EVERY DAY Complies with drug therapyStart: 04-19-2023 End: 33-12-7611todg 1 tablet by mouth once dailyAtenolol 50 mg tablet Discontinued 50 MG PO Daily October 27, 2023 1:00am April 08, 2024 9:59am Atenolol Not-Taking/PRNAtenolol Not-TakingAtenolol Activecefdinir 300 mg oral capsule (20 sources)Cephalosporin AntibacterialStart: 42-07-7017daec 1 capsule by mouth twice dailyCefdinir 300 mg capsule Active 300 MG PO Twice daily July 09, 2025 12:00am Complies with drug therapyStart: 08-18-2024 End: 58-41-0824gaqm 1 capsule by mouth twice dailyCefdinir 300 mg capsule Discontinued 300 MG PO Twice daily August 23, 2024 1:00am August 28, 2024 3:19pmStart: 01-27-2024 End: 88-29-6158lqmj 1 capsule by mouth every twelve hoursCefdinir 300 mg capsule Discontinued 300 MG PO Every 12 hours 20 10 0 January 27, 2024 12:00am 2023 8:34amcyclobenzaprine hydrochloride 10 mg oral tablet (3 sources)Muscle RelaxantStart: 01-23-2023 End: 75-57-0196oylz 1 tablet by mouth every twenty-four hours as needed cyclobenzaprine (Flexeril) 10 MG tablet Take 10 mg by mouth Daily as needed for muscle spasms. 01/23/2023 08/07/2024 Discontinued (Therapy completed) escitalopram 10 mg oral tablet (20 sources)Serotonin Reuptake InhibitorStart: 12-27-2024 End: 75-09-9072dkzq 1 tablet by mouth once dailyEscitalopram Oxalate 10 mg tablet Active 10 MG PO Daily 90 90 1 May 02, 2025 3:44pm Complies with drug therapyStart: 07-15-2024 End: 17-23-2184iogv 1 tablet by mouth once dailyEscitalopram Oxalate 20 mg tablet Discontinued 0 .ROUTE .COMPLEX 90 1 July 15, 2024 9:45pm December 27, 2024 8:56am TAKE 1 TABLET BY MOUTH EVERY DAYStart: 06-21-2024 End: 55-97-7384qhrb 1 tablet by mouth once dailyEscitalopram Oxalate 20 mg tablet Discontinued 20 MG PO Daily 30 30 2 June 21, 2024 12:11pm July 05, 2024 1:19pmStart: 04-18-2023 End: 56-88-7092wfam 1 tablet by mouth once dailyEscitalopram Oxalate 10 mg tablet Discontinued 10 MG PO Daily October 27, 2023 1:00am March 9:59amfamotidine 20 mg oral tablet (2 sources)Histamine-2 Receptor AntagonistStart: 92-36-5181dzgq 1 tablet by mouth once dailyFamotidine 20 mg tablet Active 20 MG PO Daily July 09, 2025 12:00am Complies with drug therapylifitegrast 50 mg/ml ophthalmic solution (3 sources)Lymphocyte Function-Associated Antigen-1 AntagonistStart: 05-02-2023 End: 19-27-8978jded 1 dose into the eye(s) in the morningXiidra 5 % solution Administer 1 each into affected eye(s) in the morning and at noon. 05/02/2023 Discontinued (Therapy completed)lisinopril 5 mg oral tablet (20 sources)Angiotensin Converting Enzyme InhibitorStart: 04-08-2024 End: 20-24-5176yfzy 1 tablet by mouth once dailyLisinopril 5 mg tablet Active 0 .ROUTE .COMPLEX 90 3 March 30, 2025 8:10am TAKE 1 TABLET BY MOUTH EVERY DAY Complies with drug therapyStart: 05-07-2023 End: 19-95-4191bxsu 1 tablet by mouth once dailyLisinopril 5 mg tablet Discontinued 5 MG PO Daily October 27, 2023 1:00am April 08, 2024 9:59am Lisinopril Not-Taking/PRNLisinopril Not-TakingLisinopril ActivemetFORMIN hydrochloride 1000 mg oral tablet (20 sources)BiguanideStart: 29-68-6546bzzr 1 tablet by mouth once dailyMetformin 1,000 mg tablet Active 1000 MG PO Daily April 23, 2025 12:00am Complies with drug therapyStart: 03-28-2024 End: 37-98-0910yffd 1 tablet by mouth twice dailyMetformin 1,000 mg tablet Discontinued 0 .ROUTE .COMPLEX 180 1 March 28, 2024 8:45am April 16, 2024 8:33am TAKE 1 TABLET BY MOUTH TWICE A DAY FOR 30 DAYSStart: 10-27-2023 End: 04-84-2762casc 1 tablet by mouth twice dailyMetformin 1,000 mg tablet Discontinued 1000 MG PO Twice daily October 27, 2023 1:00am March 8:45amStart: 28-69-5237mdyy 1 tablet by mouth every twelve hoursmetFORMIN HCl 1000 MG 1 tablet Orally twice a day Apr, ActiveStart: 05-29-2022 End: 33-57-7501trwu 1 tablet by mouth in the morningmetFORMIN (Glucophage) 500 MG tablet Take 500 mg by mouth in the morning and 500 mg in the evening.Take with meals. Take with food. . 05/29/2022 08/07/2024 Discontinued (Therapy completed)ondansetron 4 mg oral tablet (2 sources)Serotonin-3 Receptor AntagonistStart: 27-34-9540rrec 1 tablet by mouth every eight hoursOndansetron Hcl 4 mg tablet Active 4 MG PO Every 8 hours July 09, 2025 12:00am Complies with drug therapyOneTouch Ultra - (8 sources)OneTouch Ultra - USE 1 STRIP TO CHECK HOME BLOOD SUGAR for 25 Active potassium chloride 10 meq extended release oral tablet (7 sources)Start: 73-38-7700Lbzwickny Chloride (Klor-Con 10) 10 mEq tablet extended release Active 10 MEQ PO Daily 90 90 3 2024 12:00am Complies with drug therapyStart: 90-90-3376mnxo 1 tablet by mouth in the morningpotassium chloride CR (Klor-Con) 10 MEQ ER tablet Take 10 mEq by mouth in the morning. 04/30/2023 ActiveSemaglutide (3 sources)Start: 85-80-2793Fghyceskdjq (Ozempic) 0.25 mg or 0.5 mg (2 mg/3 mL) pen injector Active 0.5 MG SUBCUT every week 9 90 April 23, 2025 12:00am for 4 weeks Complies with drug therapyStart: 05-46-4693Tpvheveamqp (Ozempic) 0.25 mg or 0.5 mg (2 mg/3 mL) pen injector Active 0.5 MG SUBCUT every week 9 April 23, 2025 12:00am for 4 weeks Complies with drug therapytiZANidine 4 mg oral tablet (20 sources)Central alpha-2 Adrenergic AgonistStart: 14-29-9453ckff 2 tablets by mouth once daily at bedtimeTizanidine 4 mg tablet Active 8 MG PO Daily at bedtime October 27, 2024 2:50pm Complies with drug therapyStart: 10-27-2023 End: 00-62-5958jqid 1 tablet by mouth once daily at bedtimeTizanidine 4 mg tablet Discontinued 4 MG PO Daily at bedtime 90 90 August 23, 2024 9:56am October 27, 2024 2:50pmStart: 50-32-0757ciwz 1 tablet by mouth every six hours [...] ActiveTrulicity 4.5 MG/0.5ML solution pen-injector (3 sources)Start: 36-85-6562fklffu 4.5 mg by subcutaneous injection every week Trulicity 4.5 MG/0.5ML solution pen-injector Inject 4.5 mg under the skin 1 (one) time per week. 05/03/2023 Active Completed/Discontinued Medications MedicationDrug Class(es)DatesSig (Normalized)Sig (Original)baclofen 10 mg oral tablet (18 sources)gamma-Aminobutyric Acid-ergic AgonistStart: 10-27-2023 End: 32-35-9116tfhr 1 tablet by mouth twice dailyBaclofen 10 mg tablet Discontinued 10 MG PO Twice daily October 27, 2023 1:00am January 27, 2024 1: 15pmtake 1 tablet by mouth every twelve hoursBaclofen 10 MG 1 tablet as needed Orally Twice a day Lxnffo58 hr buPROPion hydrochloride 450 mg extended release oral tablet (20 sources)AminoketoneStart: 12-27-2024 End: 84-47-9570qabu 1 tablet by mouth once daily in the morningBupropion Hcl 450 mg tablet extended release 24 hr Discontinued 450 MG PO Every morning 90 December 27, 2024 12:00am April 23, 2025 8:29amStart: 08-06-2024 End: 92-96-0420mwms 1 tablet by mouth once daily in the morningBupropion Hcl 300 mg tablet extended release 24 hr Active 0 .ROUTE .COMPLEX 90 January 30, 2025 7:36am TAKE 1 TABLET BY MOUTH EVERY DAY IN THE MORNING Complies with drug therapyStart: 35-06-4196nosj 1 tablet by mouth once daily in the morning Bupropion Hcl 300 mg tablet extended release 24 hr Active 0 .ROUTE .COMPLEX August 06, 2024 10:05pm TAKE 1 TABLET BY MOUTH EVERY MORNINGStart: 16-29-2534qhjr 1 tablet by mouth once daily in the morningBupropion Hcl 300 mg tablet extended release 24 hr Active 0 .ROUTE .COMPLEX August 06, 2024 9 :05pm TAKE 1 TABLET BY MOUTH EVERY MORNINGStart: 77-73-0088mfRTZTiws HCl (WELLBUTRIN PO) 07/22/2024 ActiveStart: 07-15-2024 End: 95-94-1146cjdr 1 tablet by mouth once daily in the morningBupropion Hcl 300 mg tablet extended release 24 hr Discontinued 300 MG PO Every morning 30 30 2 July 15, 2024 1:52pm August 06, 2024 10:06pmStart: 07-05-2024 End: 82-15-5529hcrp 2 tablets by mouth once daily in the morningBupropion Hcl 300 mg tablet extended release 24 hr Discontinued 150 MG PO Every morning 30 30 2 July 05, 2024 1:19pm July 15, 2024 1:53pmStart: 06-24-2024 End: 45-75-5089utme 1 tablet by mouth once daily in the morningBupropion Hcl 150 mg tablet extended release 24 hr Discontinued 150 MG PO Every morning 30 30 2 June 24, 2024 12:00am July 05, 2024 1:19pmcabergoline 0.5 mg oral tablet (20 sources)Ergot Derivativetake 1 tablet by mouth two times weekly as needed Cabergoline 0.5 MG 1 tablet Orally 2 times a week Not-Taking/PRNcetirizine hydrochloride 10 mg oral tablet (20 sources)Histamine-1 Receptor AntagonistStart: 03-05-2025 End: 37-72-4884zcqy 1 tablet by mouth once dailyCetirizine 10 mg tablet Discontinued 10 MG PO Daily 90 90 3 March 05, 2025 5:19pm April 23, 2025 8:29amStart: 06-23-2024 End: 99-60-6391mlkp 1 tablet by mouth once dailyCetirizine 10 mg tablet Discontinued 0 .ROUTE .COMPLEX 90 3 June 23, 2024 12:17pm March 05, 2025 5:20pm TAKE 1 TABLET BY MOUTH EVERY DAYStart: 05-02-2023 End: 60-44-5260vojc 1 tablet by mouth once dailyCetirizine 10 mg tablet Discontinued 10 MG PO Daily October 27, 2023 1:00am June 23, 2024 12 :17pmdapagliflozin 5 mg oral tablet (20 sources)Sodium-Glucose Cotransporter 2 InhibitorStart: 01-16-2023 End: 72-02-3945qgpq 1 tablet by mouth once dailyDapagliflozin Propanediol (Farxiga) 5 mg tablet Discontinued 5 MG PO Daily October 27, 2023 1:00am February 26, 2024 1:07pmDexamethasone / Neomycin / Polymyxin B (20 sources)Aminoglycoside Antibacterial, Polymyxin-class Antibacterial, CorticosteroidStart: 11-98-6178dcxr 2 drop(s) into the eye(s) three times daily as neededMaxitrol 3.5-95768-4.1 2 drops into affected eye Ophthalmic Three times a day for 7 days Sep, Not-Taking/PRNStart: 76-57-8366wdhg 2 drop(s) into the eye(s) three times dailyMaxitrol 3.5-56256-8.1 2 drops into affected eye Ophthalmic Three times a day for 7 days Sep, Not-TakingStart: 09-13-2020 take 2 drop(s) into the eye(s) three times dailyMaxitrol 3.5-97290-2.1 2 drops into affected eye Ophthalmic Three times a day for 7 days Sep, Active Dulaglutide (20 sources)GLP-1 Receptor AgonistStart: 10-27-2023 End: 94-98-7683Ecmzpdzsyyy (Trulicity) 4.5 mg/0.5 mL pen injector Discontinued 4.5 MG SUBCUT every week October 27, 2023 1:00am October 27, 2024 2:49pm Start: 54-54-5831zutjuu 4.5 mg by subcutaneous injection every weekTrulicity 4.5 MG/0.5ML 4.5mg Subcutaneous weekly for 30 days Oct, ActiveStart: 52-08-0311qvaxir 4.5 mg by subcutaneous injection every weekTrulicity 4.5 MG/0.5ML 4.5mg Subcutaneous weekly Oct, ActiveStart: 85-37-7348swqsxa 4.5 mg by subcutaneous injection every weekTrulicity 4.5 MG/0.5ML 4.5mg Subcutaneous weekly for 28 days Oct, Activeinject 4.5 mg by subcutaneous injection every weekTrulicity 4.5 MG/0.5ML INJECT 4.5 MG SUBCUTANEOUSLY WEEKLY ActiveDulaglutide (Trulicity) 4.5 mg/0.5 mL pen injector (7 sources)Start: 10-27-2023 End: 53-26-9905Sydflezdsgi (Trulicity) 4.5 mg/0.5 mL pen injector Discontinued 4.5 MG SUBCUT every week October 27, 2023 1:00am October 27, 2024 2:49pm Start: 10-27-2023 End: 99-02-9789Cfjmsvecxve (Trulicity) 4.5 mg/0.5 mL pen injector Discontinued 4.5 MG SUBCUT every week October 27, 2023 12:00am October 27, 2024 1:49pm Start: 40-81-7073Lroejwugzbi (Trulicity) 4.5 mg/0.5 mL pen injector Active 4.5 MG SUBCUT every week October 27, 2023 12:00amStart: 95-94-4394Clmacwfxfmg (Trulicity) 4.5 mg/0.5 mL pen injector Active 4.5 MG SUBCUT every week October 27, 2023 1:00amfluticasone propionate 0.05 mg/actuat metered dose nasal spray (15 sources)CorticosteroidStart: 08-18-2024 End: 70-50-4148sbyn 1 spray(s) nasal route once dailyFluticasone Propionate (Flonase Allergy Relief) 50 mcg/actuation spray,suspension Discontinued 1 SPRAY INTRANASAL Daily 16 14 0 August 18, 2024 1:00am December 27, 2024 8:39am administer into each nostrilStart: 01-27-2024 End: 60-69-2335kwtb 2 spray(s) nasal route once dailyFluticasone Propionate (Flonase Allergy Relief) 50 mcg/actuation spray,suspension Discontinued 2 SPRAY INTRANASAL Daily 16 30 0 January 27, 2024 12:00am October 27, 2024 2:45pm administer 2 spray into each nostrilfurosemide 20 mg oral tablet (20 sources)Loop DiureticStart: 04-05-2023 End: 28-09-9507zxkm 1 tablet by mouth once dailyFurosemide 20 mg tablet Discontinued 20 MG PO Daily October 27, 2023 1:00am November 18, 2024 10:29pm Furosemide ActivehydrOXYzine hydrochloride 50 mg oral tablet (20 sources)AntihistamineStart: 06-27-2024 End: 49-59-7078zxam 1 tablet by mouth once daily at bedtime as needed for anxietyHydroxyzine Hcl 50 mg tablet Discontinued 50 MG PO Daily at bedtime as needed for anxiety 7 7 0 June 27, 2024 12:42pm October 27, 2024 2:49pm Start: 06-21-2024 End: 50-43-4543iaht 1 tablet by mouth three times daily as needed for anxiety Hydroxyzine Hcl 25 mg tablet Discontinued 25 MG PO Three times daily as needed for anxiety 30 30 2 June 21, 2024 12:00am June 21, 2024 12:23pm Ketorolac (20 sources)Nonsteroidal Anti-inflammatory Drug, Cyclooxygenase InhibitorStart: 56-89-3836Retkpvy per 15 mg Jun, 30 mglevoFLOXacin 750 mg oral tablet (6 sources)Quinolone AntimicrobialStart: 08-28-2024 End: 06-33-2376qcjv 1 tablet by mouth once dailyLevofloxacin 750 mg tablet Discontinued 750 MG PO Daily 7 7 0 August 28, 2024 1:00am October 27, 2024 2:45pmmethylPREDNISolone (20 sources)CorticosteroidStart: 59-88-3298Xztx-Medrol 80 mg Feb, 80 mg Nirmatrelvir-Ritonavir (4 sources)Start: 10-27-2023 End: 19-96-1255hinv 2 tablets by mouth once, then take 1 tablet by mouth twice dailyNirmatrelvir-Ritonavir (Paxlovid) 300 mg (150 mg x 2)-100 mg tablets,dose pack Discontinued 0 PO per package directions 30 5 0 October 27, 2023 1:00am December 20, 2023 6:10pm take TWO 150 mg tablets of nirmatrelvir with ONE 100 mg tablet of ritonavir twice daily for 5 days orally per package directions;Start: 10-27-2023 End: 36-08-4375pava 2 tablets by mouth once, then take 1 tablet by mouth twice dailyNirmatrelvir-Ritonavir (Paxlovid) 300 mg (150 mg x 2)-100 mg tablets,dose pack Discontinued 0 PO per package directions 30 5 October 27, 2023 1:00am December 20, 2023 6:10pm take TWO 150 mg tabletsof nirmatrelvir with ONE 100 mg tablet of ritonavir twice daily for 5 days orally per package directions; Nirmatrelvir-Ritonavir (Paxlovid) 300 mg (150 mg x 2)-100 mg tablets,dose pack (8 sources)Start: 10-27-2023 End: 95-23-9215gwcl 2 tablets by mouth once, then take 1 tablet by mouth twice dailyNirmatrelvir-Ritonavir (Paxlovid) 300 mg (150 mg x 2)-100 mg tablets,dose pack Discontinued 0 PO per package directions 07 02October 27, 2023 12:00am December 20, 2023 5:10pm take TWO 150 mg tablets of nirmatrelvir with ONE 100 mg tablet of ritonavir twice daily for 5 days orally per package directions;Start: 10-27-2023 End: 62-66-4824nhmm 2 tablets by mouth once, then take 1 tablet by mouth twice dailyNirmatrelvir-Ritonavir (Paxlovid) 300 mg (150 mg x 2)-100 mg tablets,dose pack Discontinued 0 PO per package directions 07 02October 27, 2023 1:00am December 20, 2023 6:10pm take TWO 150 mg tabletsof nirmatrelvir with ONE 100 mg tablet of ritonavir twice daily for 5 days orally per package directions;Start: 96-93-6975hdyh 2 tablets by mouth once, then take [...] tablet (20 sources)Sympathomimetic Amine AnorecticStart: 10-27-2023 End: 76-61-7010jmkm 1 tablet by mouth once dailyPhentermine 37.5 mg tablet Discontinued 37.5 MG PO Daily May 28, 2024 2:05pm June 21, 2024 12:11pm Morbid or severe obesity due to excess calories Morbid (severe) obesity due to excess calories start art: 45-30-0935kfud 1 tablet by mouth once daily before breakfastAdipex-P 37.5 MG 1 tablet before breakfast Orally Once a day for 30 days Rx #3 Oct, ActiveStart: 81-04-8767paol 1 tablet by mouth once daily before breakfastAdipex-P 37.5 MG 1 tablet before breakfast Orally Once a day Rx #2 Sep, ActiveStart: 65-32-4632ohci 1 tablet by mouth once daily before breakfastAdipex-P 37.5 MG 1 tablet before breakfast Orally Once a day for 30 days Rx #1 Aug, Activepotassium 99 mg extended release oral tablet (19 sources)Start: 10-27-2023 End: 75-74-8276oemu 1 mg by mouth once dailyPotassium 99 mg tablet Discontinued MG PO Daily October 27, 2023 1:00am March 05, 2025 5:16pmStart: 10-27-2023 take 1 mg by mouth once dailyPotassium Active MG PO Daily October 27, 2023 1:00amtake 1 tablet by mouth once dailyPotassium 99 MG 1 tablet Orally Once a day ActivePotassium ActivepredniSONE 20 mg oral tablet (13 sources)Start: 12-27-2024 End: 68-05-6260Klmlkegdei 20 mg tablet Discontinued 20 MG PO As Directed 18 0 December 27, 2024 12:00am April 23, 2025 8:29am 1 tab tid w/ food x 3 days, then bid w/ food x 3 days, then qd w/ food x 3 daysStart: 16-99-6539qdex 1 tablet by mouth every twelve hourspredniSONE 20 MG 1 tablet Orally bid for 5 day(s) May, Not-Taking/PRNToradol 30 mg/ml (8 sources)Start: 11-29-9856Rpzykcu 30 mg/ml May, 30 mgtraMADol hydrochloride 50 mg oral tablet (5 sources)Opioid AgonistStart: 12-27-2024 End: 07-68-0491wmjt 1 tablet by mouth three times daily as needed for pain Tramadol 50 mg tablet Discontinued 50 MG PO Three times daily as needed for pain 21 7 0 December 12:00am April 23, 2025 8:29am Spondylosis of lumbar spine Low back pain Spondylosis withoutmyelopathy or radiculopathy, lumbar region Low back pain, unspecifiedtriamcinolone acetonide 5 mg/ml topical cream (20 sources)CorticosteroidStart: 10-27-2023 End: 97-18-6663Ljntufnxafkou Acetonide 0.5 % cream Discontinued 1 APPLIC TOPICAL Twice daily October 27, 2023 1:00am January 27, 2024 1:16pmStart: 05-26-2023 Kenalog-40 May, 40 mgStart: 24-74-8572Xlldphmbllffx Acetonide 0.5 % 1 application Externally Twice a day for 14 days Feb, Not-TakingStart: 55-37-3747UNZUGTH - 10 mg Jun, 40 mgStart: 95-19-8064HZQRKZN - 10 mg January, 60 mgTriamcinolone Acetonide 0.5 % APPLY DAILY TO SKIN TO AFFECTED AREA TWICE A DAY FOR 2 WEEKS for 30 Active Problems Active Problems Problem ClassificationProblemDateDocumented DateEpisodic/ChronicAbdominal pain (2 sources)Abdominal pain; Translations: [Unspecified abdominal pain]07-09-2025 EpisodicAcute bronchitis (2 sources)Acute bronchitis; Translations: [Acute bronchitis due to other specified organisms]EpisodicAnxiety disorders (9 sources)Panic attack; Translations: [Panic disorder [episodic paroxysmal anxiety]]77-53-8341BdccakoTtwvtuc dysrhythmias (11 sources)Palpitations; Translations: [Palpitations]Onset: 03-07-2017 07-83-8708GeeqsoqnUuijmei obstructive pulmonary disease and bronchiectasis (2 sources)Acute exacerbation of chronic obstructive airways disease; Translations: [Chronic obstructive pulmonary disease with (acute) exacerbation] Onset: 80-46-8856PijaggfNxigovcutxqvy of surgical procedures or medical care (2 sources)Postoperative hemorrhage; Translations: [Postprocedural hemorrhage of a genitourinary system organ or structure following a genitourinary system procedure]EpisodicDiabetes mellitus with complications (20 sources)Type 2 diabetes mellitus; Translations: [Type 2 diabetes mellitus with hyperglycemia]Onset: 20-03-8575PhvyzcfGbugigcs of white blood cells (2 sources)Neutrophilia; Translations: [Other elevated white blood cell count] 19-43-3364IulypvlNmvhodtwi hypertension (20 sources)Essential hypertension; Translations: [Essential (primary) hypertension]Onset: 63-52-3791WhivijsXbpnhm infertility (2 sources)Female infertility associated with anovulation; Translations: [Female infertility associated with anovulation]Onset: 43-06-6031DgpsglfDlpoa of unknown origin (2 sources)Fever; Translations: [Fever, [...] allergic conjunctivitis; Translations: [Other chronic allergic conjunctivitis]Onset: 98-84-8316HrcdirfUhmfptozirye; infection of eye (except that caused by tuberculosis or sexually transmitteddisease) (2 sources)Conjunctivitis; Translations: [Unspecified conjunctivitis]Episodic Joint disorders and dislocations; trauma-related (2 sources)Chondromalacia of patella; Translations: [Chondromalacia patellae, left knee]Onset: 27-95-2242UcxssfdPuwiqbzzll disorders (10 sources)Perimenopausal state; Translations: [Menopausal and female climacteric states]ChronicMenstrual disorders (8 sources)Irregular periods; Translations: [Irregular menstrual cycle]Onset: 62-17-2224LxradncJxov disorders (20 sources)Moderate major depression, single episode; Translations: [Major depressive disorder, single episode, moderate]ChronicMycoses (2 sources)Candidiasis; Translations: [Candidiasis, unspecified]EpisodicNausea and vomiting (2 sources)Nausea and vomiting; Translations: [Nausea with vomiting, unspecified]88-28-3726SwqgxoetZgcpvdcitcyf breast conditions (17 sources)Large breast; Translations: [Macromastia]Onset: 31-13-7595Kkbjncvm Other aftercare (2 sources)High risk drug monitoring status; 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]EpisodicOther aftercare (2 sources)History and physical examination, follow-up; Translations: [Encounter for follow-up examination after completed treatment for conditions other than malignant neoplasm]EpisodicOther and unspecified benign neoplasm (20 sources)Prolactinoma; 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] 99-37-7395GcfdxpsyGlctx and unspecified benign neoplasm (3 sources)Benign neoplasm of pituitary gland; 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]EpisodicOther and unspecified benign neoplasm (2 sources)Benign neoplasm of pituitary gland; 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]EpisodicOther and unspecified benign neoplasm (2 sources)Adenomyomatosis of gallbladder; Translations: [Benign neoplasm of extrahepatic bile ducts]41-22-0142JpnqxfkgXlyupam on above:CT/US - 06/2025Other complications of ; puerperium affecting management of mother (13 sources)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 associated with childbirth; Translations: [Galactorrhea]EpisodicOther congenital anomalies (2 sources)Congenital spondylolysis of lumbosacral region; Translations: [Congenital spondylolysis, lumbosacral region]Onset: 04-22-5074BunkazdTviax connective tissue disease (13 sources)Plantar fasciitis of [...] fascial fibromatosis]EpisodicOther diseases of kidney and ureters (6 sources)Acquired renal cystic disease; Translations: [Acquired cyst of kidney]Onset: [id number] on above:US: 3.6cm cyst - T: renal cyst - 06/2025Other diseases of veins and lymphatics (4 sources)Peripheral venous insufficiency; Translations: [Venous insufficiency (chronic) (peripheral)]Onset: 72-04-6161AeuqvfyfUgmnx endocrine disorders (20 sources)Hyperprolactinemia; Translations: [Hyperprolactinemia]ChronicOther endocrine disorders (3 sources)HyperprolactinemiaChronicOther endocrine disorders (2 sources)Polycystic ovaries; Translations: [Polycystic ovarian syndrome] ChronicOther female genital disorders (2 sources)Abnormal vaginal bleeding; Translations: [Other specified abnormal uterine and vaginal bleeding]ChronicOther fractures (1 source)Collapsed vertebra, not elsewhere classified, thoracic region, initial encounter for fracture; Translations: [COLLAPSED VERT NEC THOR INIT ENC]Onset: 05-19-2272MiscmkqwWlpdc gastrointestinal disorders (2 sources)Diarrhea; Translations: [Diarrhea, unspecified]13-37-8622Pbpnnecz Other inflammatory condition of skin (10 sources)Seborrheic dermatitis of scalp; Translations: [Seborrheic dermatitis, unspecified]EpisodicOther inflammatory condition of skin (1 source)Seborrheic dermatitis, unspecifiedEpisodicOther liver diseases (2 sources)Cirrhosis of liver; Translations: [Unspecified cirrhosis of liver] 38-04-8149HkblckkWalgmwa on above:CT: cyst right kidney, cirrhotic liver - 06/2025Other liver diseases (2 sources)Fatty (change of) liver, not elsewhere classified; Translations: [Metabolic dysfunction-associated steatotic liver disease (MASLD)]07-09-2025 ChronicOther lower respiratory disease (8 sources)Cough; Translations: [Cough]EpisodicOther lower respiratory disease (2 sources)Hypoxia; Translations: [Hypoxemia]13-79-7756HopcsaqxWpbkc lower respiratory disease (2 sources)Snoring; Translations: [Snoring]74-21-1461JqdaskoeBjwtz nervous system disorders (1 source)Other chronic pain; Translations: [OTHER CHRONIC PAIN]Onset: 06-26-9688YzjhuaiGbkvw nervous system disorders (1 source)Other specified mononeuropathies; Translations: [OTHER SPECIFIED MONONEUROPATHIES]Onset: 96-90-9756DnyfrnvNpyfh nervous system disorders (7 sources)Carpal tunnel syndrome of right wrist; Translations: [Carpal tunnel syndrome, right upper limb]06-38-7297BfeitpoUtjek nervous system disorders (1 source)Carpal tunnel syndrome, right upper limb; Translations: [Carpal tunnel syndrome]47-34-5720KtdukucDhxtv nutritional; endocrine; and metabolic disorders (20 sources)Morbid obesity; Translations: [Morbid (severe) obesity due to excess calories]Onset: 97-79-0671NvwmiqoWoiyp nutritional; endocrine; and metabolic disorders (20 sources)Body mass index 40+ - severely obese; Translations: [Body mass index (BMI) 45.0-49.9, adult]Onset: 044199-50-2027XkrdihvMcjvb nutritional; endocrine; and metabolic disorders (6 sources)Morbid (severe) obesity due to excess caloriesChronicOther nutritional; endocrine; and metabolic disorders (17 sources)Obesity; Translations: [Obesity, unspecified]09-80-2550YhuzfwnUsryl nutritional; endocrine; and metabolic disorders (2 sources)Hypercalcemia; Translations: [Hypercalcemia]Onset: 04-74-0556Aroerkn Other nutritional; endocrine; and metabolic disorders (7 sources)Severe obesity; Translations: [Morbid (severe) obesity due to excess calories]ChronicOther nutritional; endocrine; and metabolic disorders (3 sources)Body mass index (BMI) 50.0-59.9, adultChronicOther nutritional; endocrine; and metabolic disorders (3 sources)Obesity caused by energy imbalance; Translations: [Morbid (severe) obesity due to excess calories]04-29-7721SfnuwyuZrhrz nutritional; endocrine; and metabolic disorders (4 sources)Obesity, unspecified; Translations: [Obesity, unspecified]01-15-2024 ChronicOther screening for suspected conditions (not mental disorders or infectious disease) (2 sources)Imaging result abnormal; Translations: [Abnormal findings on diagnostic imaging of other specified body structures]ChronicOther screening for suspected conditions (not mental disorders or infectious disease) (17 sources)Encounter for screening mammogram for malignant neoplasm of breast; Translations: [Urine test negative]Onset: 07-12-2022 Resolved: 78-18-1616LnlispquJygxm upper respiratory disease (2 sources)Allergic rhinitis; Translations: [Allergic rhinitis, unspecified] ChronicOther upper respiratory infections (14 sources)Acute maxillary sinusitis; Translations: [Acute maxillary sinusitis] Onset: 92-75-5355HtympecxDdtmdw media and related conditions (7 sources)Eustachian tube salpingitis; Translations: [Unspecified Eustachian salpingitis, right ear]Onset: 869054-11-9625GkdqtniwQptdfdyeb; thrombophlebitis and thromboembolism (2 sources)Phlebitis and thrombophlebitis; Translations: [Phlebitis and thrombophlebitis of unspecified site]EpisodicResidual codes; unclassified (20 sources)Obstructive sleep apnea syndrome; Translations: [Obstructive sleep apnea (adult) (pediatric)]93-05-4996MrcvrzzKqlhzwxd codes; unclassified (13 sources)Obstructive sleep apnea (adult) (pediatric); Translations: [Obstructive sleep apnea (adult)(pediatric)]Onset: 56-75-6122ZxnopgqRuggakmq codes; unclassified (2 sources)Hypersomnia; Translations: [Hypersomnia, unspecified]08-07-2024 ChronicResidual codes; unclassified (2 sources)Postprocedural state finding; Translations: [Other specified postprocedural states]EpisodicResidual codes; unclassified (2 sources)Immunization refused ; Translations: [Immunization not carried out because of patient refusal]EpisodicResidual codes; unclassified (2 sources)Pain; Translations: [Pain, unspecified]EpisodicResidual codes; unclassified (7 sources)Insomnia; Translations: [Insomnia, unspecified]04-08-1432Urzxmnoh Residual codes; unclassified (3 sources)Insomnia, unspecified; Translations: [Insomnia, unspecified] 84-60-5744KayjcwfrGbed and subcutaneous tissue infections (2 sources)Carbuncle of left lower limb; Translations: [Carbuncle of left lower limb]EpisodicSpondylosis; intervertebral disc disorders; other back problems (20 sources)Degeneration of cervical intervertebral disc; Translations: [Other cervical disc degeneration, unspecified cervical region]Onset: 68-22-6223Rcvgqpo Sprains and strains (18 sources)Sprain of ankle; Translations: [Ankle sprain]Onset: 11-26-2018 EpisodicThyroid disorders (5 sources)Subclinical hypothyroidism; Translations: [Other specified hypothyroidism]72-09-0113WhvichlJxqenqu tract infections (2 sources)Acute cystitis; Translations: [Acute cystitis without hematuria] 21-91-5857AtiuucbrHsmaq infection (6 sources)Herpesviral vesicular dermatitis; Translations: [Herpesviral vesicular dermatitis]Onset: 146558-70-3600YpwfgznsUyyzz infection (2 sources)Disease caused by 2019-nCoV; Translations: [COVID-19] Past or Other Problems Problem ClassificationProblemDateDocumented DateEpisodic/Chronic Administrative/social admission (2 sources)Repeated prescription; Translations: [Encounter for issue of repeat prescription]Onset: 75-36-1297SwjergdwFknyimtlkqqjd and procreative management (2 sources)Sterilization procedure; Translations: [Encounter for sterilization] Resolved: 71-00-3349ZgzvkzwzEphsgfdd mellitus without complication (2 sources)Hyperglycemia; Translations: [Hyperglycemia, unspecified] Resolved: 38-54-5316PnrmbaqxBotkebdy; including migraine (2 sources)Headache; Translations: [Headache, unspecified]Onset: 02-28-2014 EpisodicNonspecific chest pain (2 sources)Chest pain; Translations: [Other chest pain]Onset: 96-49-4520Jlxvyoft Other aftercare (2 sources)Therapeutic drug level - finding; Translations: [Encounter for therapeutic drug level monitoring]Onset: 27-22-5925DxpspahaOcwbs bone disease and musculoskeletal deformities (2 sources)Chondromalacia; Translations: [Chondromalacia, right knee]Onset: 71-73-9307MbcqmgwqIymrz complications of ; puerperium affecting management of mother (2 sources)Disorder of ; Translations: [Unspecified disorder of , condition or complication]Onset: 47-60-8531UecmaxxbKlqsv connective tissue disease (2 sources)Pain in right foot; Translations: [Pain in right foot]Onset: 50-63-1263XldcdtsrRodhg connective tissue disease (2 sources)Enthesopathy of ankle AND/OR tarsus; Translations: [Metatarsalgia, unspecified foot]Onset: 81-89-3294VcihzrbyAgpno eye disorders (2 sources)Conjunctival xerosis; Translations: [Conjunctival xerosis, unspecified, unspecified eye]Onset: 66-68-3546RdfkznlwDvqsb lower respiratory disease (4 sources)Dyspnea; Translations: [Shortness of breath]Onset: 39-51-6057Zgchryog Other non-traumatic joint disorders (2 sources)Arthralgia of the lower leg; Translations: [Pain in joint, lower leg] Onset: 42-11-9581CjtjsgmfUkmlo non-traumatic joint disorders (2 sources)Arthralgia of the pelvic region and thigh; Translations: [Pain in joint, pelvic region and thigh]Onset: 78-36-2748TiywdaypOlqon non-traumatic joint disorders (4 sources)Shoulder joint pain; Translations: [Pain in unspecified shoulder] Onset: 15-64-5426EnmemhjeJzbry non-traumatic joint disorders (2 sources)Pain in wrist; Translations: [Pain in unspecified wrist]Onset: 94-98-2610WfmammxgDbuji skin disorders (2 sources)Sebaceous cyst; Translations: [Sebaceous cyst]Onset: 08-03-2015 EpisodicResidual codes; unclassified (1 source)Family history of malignant neoplasm of breast; Translations: [FAMILY HX MALIG NEOPLASM OF BREAST]Onset: 34-21-4503ZokhqaxsUlcwztru codes; unclassified (1 source)Family history of malignant neoplasm of ovary; Translations: [FAM HX MALIGNANT NEOPLASM OVARY]Onset: 77-68-0367XlwllnwhWzabinen codes; unclassified (1 source)Family history of malignant neoplasm of bladder; Translations: [FAM HX MALIGNANT NEOPLASM BLADDER]Onset: 87-34-3616IzxfpuleLduqrqfa codes; unclassified (2 sources)Edema; Translations: [Edema]Onset: 66-44-1342RjssxdmaQjckjgpwt and history of mental health and substance abuse codes (2 sources)History of tobacco use; Translations: [Personal history of tobacco use, presenting hazards to health]Onset: 32-29-9257HcqkqbkrNkqzimojoxz; intervertebral disc disorders; other back problems (16 sources)Pain in thoracic spine; Translations: [Low back pain]Onset: 749026-66-0269Tazmmxyi Results Test NameValueInterpretationReference RangeFacilityBasophils/100 WBC Manual cnt (Bld)Ordered By: Emiliana [place]sland on 63-36-5292Tqjcfnftl/100 WBC (Bld)0.0 %Low 0.2-2.0[facility] HospitalEosinophils/100 WBC Manual cnt (Bld) Ordered By: Emiliana Temple on 99-92-7815Dmfuwbamvzj/100 WBC (Bld)1.0 % 0.9-7.0[facility] HospitalErythrocyte distribution width Auto (RBC) [Ratio]Ordered By: [facility] on 97-71-8301Jscmfxdgqan distribution width (RBC) [Ratio]13.4 %11.0-15.0[facility] Globulin Calc (S) [Mass/Vol]Ordered By: [facility] on 36-99-8285Ihgmwbhq (S) [Mass/Vol]3.8 g/dLMercy Health Clermont HospitalGlomerular filtration rate (GFR) estimation in non- AmericanOrdered By: [facility] on 21-66-5276YQY/1.73 sq M.predicted among non-blacks MDRD (S/P/Bld) [Vol rate/Area]45 mL/min/{1.73_m2}Low>=60 mL/min/1.73m 2FPremier Health Atrium Medical CenterHematocrit Auto (Bld) [Volume fraction]Ordered By: [facility] on 84-92-2587Wybltespjt (Bld) [Volume fraction]52.8 %High36.0-48.0[facility] HospitalHemoglobin [Mass/volume] in BloodOrdered By: [facility] on 97-80-7500Zarkzmjtcm (Bld) [Mass/Vol]17.5 g/jAZkbe61.0-16.0 [facility] HospitalLaboratory - Chemistry and Chemistry - challengeOrdered By: [facility] on 61-22-3822Cbfoeddak Ql (U)MODERATE AbnormalNEGATIVEMercy Health Clermont HospitalGlucose (U) [Mass/Vol]100 mg/dL AbnormalNEGATIVEMercy Health Clermont HospitalKetones Ql (U)15 mg/dLAbnormal NEGATIVEMercy Health Clermont HospitalpH (U)5.5 [pH]5.0-9.0[facility] Medical Centerpecific gravity (U) [Rel density]>=1.314Saprfkfk1.005-1.025 [facility] HospitalUrobilinogen Qn (U)1.0 {Liu'U}/dL0.2-1.0 [facility] HospitalAlbumin [Mass/Vol]4.8 g/dL3.4-5.0[facility] HospitalALP [Catalytic activity/Vol]98 U/I53-863AdcpgcxeiMercy Health Clermont HospitalALT [Catalytic activity/Vol]33 U/V89-37QijsmdtbfMercy Health Clermont HospitalAST [Catalytic activity/Vol]20 U/D00-88LkzqlaycdMercy Health Clermont HospitalBilirubin [Mass/Vol]0.8 mg/dL0.2-1.0[facility] Calcium [Mass/Vol]10.2 mg/dLHigh8.5-10.1FPremier Health Atrium Medical Center Chloride [Moles/Vol]103 mmol/U47-618ZjignpgwfMercy Health Clermont HospitalCO2 [Moles/Vol]23.7 mmol/L21.0-32.0[facility] HospitalCreatinine [Mass/Vol]1.27 mg/dLHigh0.55-1.02[facility] HospitalGFR/1.73 sq M.predicted MDRD (S/P/Bld) [Vol rate/Area]54 mL/min/{1.73_m2}Low>=60 mL/min/1.73m 2FPremier Health Atrium Medical CenterGlucose [Mass/Vol]171 mg/dLHigh 74-106Mer[facility] HospitalLipase [Catalytic activity/Vol]26.0 U/L 16.0-77.0[facility] HospitalPotassium [Moles/Vol]3.8 mmol/L3.5-5.1 [facility] HospitalProtein [Mass/Vol]8.6 g/dLHigh6.4-8.2FAvita Health Systemodium [Moles/Vol]139 mmol/P478-663ThhduribvMercy Health Clermont HospitalUrea nitrogen [Mass/Vol]12.0 mg/dL7.0-18.0[facility] HospitalUrea nitrogen/Creatinine [Mass ratio]9.4 mg/mgMercy Health Clermont HospitalLaboratory - Hematology and Cell countsOrdered By: Emiliana Gilbert on 85-73-0059Fvmmsvbzczr/100 WBC (Bld)6.0 %Low20.5-60.0[facility] HospitalMonocytes/100 WBC (Bld)4.0 %1.7-12.0[facility] HospitalLaboratory - Specimen informationOrdered By: Emiliana Gilbert on 56-23-8880Dxjgqerqjf (U)SL CLOUDYCLEARFPremier Health Atrium Medical CenterColor (U) DK. YELLOWYELLOWMercy Health Clermont HospitalLaboratory - UrinalysisOrdered By: Emiliana Gilbert on 39-34-6395Unzdbkwlw sediment LM Ql (Urine sed)FEW [facility] HospitalHyaline casts LM Ql (Urine sed)MODERATE [facility] HospitalLeukocyte esterase Test strip Ql (U)TRACE AbnormalNEGATIVEMercy Health Clermont HospitalMucus Ql (Urine sed)TRACE AbnormalNONE [facility] CenterNitrite Ql (U)NegativeNEGATIVE [facility] HospitalProtein Ql (U)>=300 mg/dLAbnormalNEG/TRACE [facility] HospitalLeukocytes [#/volume] corrected for nucleated erythrocytes in Blood by Automated counOrdered By: Emiliana Gilbert on 29-34-0458EIY corrected for nucl RBC Auto (Bld) [#/Vol]24.8 10 3/uLHigh4.0-11.0 [facility] Auto (RBC) [Entitic mass]Ordered By: Emiliana Gilbert on 29-82-9789AHT (RBC) [Entitic mass]28.1 pg26.7-34.0 [facility] CenterHC Auto (RBC) [Mass/Vol]Ordered By: Emiliana Gilbert on 51-99-9209UQHR (RBC) [Mass/Vol]33.1 g/dL29.9-35.2FPremier Health Atrium Medical CenterMCV Auto (RBC) [Entitic vol]Ordered By: Emiliana Gilbert on 53-68-4595QJG (RBC) [Entitic vol]84.8 fL81.0-99.0[facility] HospitalNo Panel InformationOrdered By: Emiliana Gilbert on 66-34-1633Qfrjv BacteriaLARGE #/HPFAbnormalNONE [facility] CenterUrine Calcium Oxalate CrystalsFEWMercy Health Clermont HospitalUrine Culture ReflexedYES-UC HealthUrine Microscopic ReviewYES [facility] HospitalUrine Occult BloodNegativeNEGATIVEMercy Health Clermont HospitalUrine Other CastsSEEN #/LPFAbnormalNONE [facility] CenterUrine Other CrystalsSeen #/HPFAbnormalNone [facility] HospitalUrine RBC0-2 #/HPF0-2FPremier Health Atrium Medical Center Urine Squamous Epithelial CellsFEW #/LPFAbnormalNONE/RAREMercy Health Clermont HospitalUrine WBC2-5 #/HPFAbnormalNONE [facility] Medical CenterAbsolute Basophils (Manual)0.00 10 3/uL0.00-0.10[facility] HospitalEosinophils # (Manual)0.24 10 3/uL0.00-0.70[facility] HospitalLymphocytes # (Manual)1.48 10 3/uL1.20-3.80[facility] HospitalMonocytes # (Manual)0.99 10 3/uLHigh0.30-0.80[facility] Centeregmented Neutrophils # (Manual)22.07 10 3/uLHigh1.4-6.5FPremier Health Atrium Medical CenterTroponin I High Sensitivity<4.0 pg/mLLow4.0-51.3FPremier Health Atrium Medical CenterComment on above:CUT-OFF POINTS HAVE BEEN ESTABLISHED BASED ON THE FOURTHUNIVERSAL DEFINITION OF MYOCARDIAL INFARCTION. THE UPPERREFERENCE LIMIT (URL) OF TROPONIN, DEFINED THE 99THPERCENTILE OF cTnI DISTRIBUTION IN A REFERENCE POPULATION,HAS BEEN CONFIRMED THE DECISION THRESHOLD FOR MIDIAGNOSIS.99TH PERCENTILE = 51.4 PG/MLNOTE: HIGH-SENSITIVITY TROPONIN ASSAY IS NOT INTENDED TO BEUSED IN ISOLATION BUT SHOULD BE INTERPRETED IN CONJUNCTIONWITH OTHER DIAGNOSTIC AND CLINICAL INFORMATION.Platelet mean volume Auto (Bld) [Entitic vol]Ordered By: EmilianaMercy Hospital on 64-59-1868Nmltdqba mean volume (Bld) [Entitic vol]10.1 fL9.5-13.5FPremier Health Atrium Medical CenterPlatelets Auto (Bld) [#/Vol]Ordered By: EmilianaMercy Hospital on 37-90-4647Xtkqmkfie (Bld) [#/Vol]356 10 3/eR820-101ClbiwwbpkMercy Health Clermont HospitalRBC Auto (Bld) [#/Vol] Ordered By: EmilianaMercy Hospital on 46-96-6846VPI (Bld) [#/Vol]6.23 10 6/uLHigh 4.20-5.40[facility] Centeregmented neutrophils/100 WBC Manual cnt (Bld)Ordered By: EmilianaMercy Hospital on 50-14-1339Ygeuntrap neutrophils/100 WBC (Bld)89.0 %High43.0-75.0[facility] Centererum or plasma albumin/globulin mass ratioOrdered By: [facility] on 07-08-2025 Albumin/Globulin [Mass ratio]1.3 {ratio}[facility] Centererum or plasma anion gap determinationOrdered By: [facility] on 07-08-2025 Anion gap [Moles/Vol]16.1 mmol/LFPremier Health Atrium Medical CenterUrine Cultureon 48-20-6301Tjofwwdi identified Cx Nom (U)15,000 colonies/ml mixed bacterial skin contaminants 1 Day PERFORMED BY: [place] [address] PATHOLOGIST INDUSTRIAL STAFF NURSE DONOVAN LEMUS M.D.[facility] Physician GroupComment on above: Performed By: #### CUU #### [place] [address] USAMR lumbar spine wo conon 68-09-0975QY lumbar spine wo con [facility] [place] [address] [place] [address] MRI Report Signed Patient: Jing Gray MR#: [id number] 1 : 1975 Acct:[id number] Age/Sex: 49 / F ADM Date: 03/12/25 Loc: [facility] Room: Type: [facility] Attending Dr: Jeny FELIZ Copies to: TRINI Rhodes Ordering Provider: TRINI Rhodes Date of Service: 03/12/25 MR/MR lumbar spine wo con: LUMBAR RADICULOPATHY,LUMBAR DISCOGENIC CHANGES MRI lumbar spine performed without contrast INDICATION: Lumbar radiculopathy COMPARISON: None FINDINGS: Examination was performed on an open magnet system with less than optimal enbwex-vu-ltaku ratio which does degrade evaluation. Lumbar vertebral [...] Mccabe M.D. 03/12/2025 10:38 AM Dictation Location: [place] [address] Transcribed By: [facility] 03/12/25 1038 Dictated By: Edgardo Mccabe MD 03/12/25 1030 Signed By: 03/12/[address] [place] [address] Physician GroupMagnetic resonance imaging reportOrdered By: Edgardo Mccabe on 07-10-5156Xdgce reportSELECT [facility] [place] [address] [place] [address] MRI Report Signed Patient: Jing Gray MR#: [id number] : 1975 Acct:[id number] Age/Sex: 49 / F ADM Date: 5 Loc: [facility] Room: Type: [facility] Attending Dr: Jeny FELIZ Copies to: TRINI Rhodes~ Ordering Provider: Jeny E Sindhu, TEST DRILLER-C Date of Service: 03/12/25 MR/MR lumbar spine wo con: LUMBAR RADICULOPATHY,LUMBAR DISCOGENIC CHANGES MRI lumbar spine performed without contrast INDICATION: Lumbar radiculopathy COMPARISON: None FINDINGS: Examination was performed on an open magnet system with less than optimal oocybh-as-ybcsakziff which does degrade evaluation. Lumbar vertebral heights, [...] Mccabe M.D. 03/12/2025 10:38 AM Dictation Location: [place] [address] Transcribed By: [facility] 03/12/25 1038 Dictated By: Edgardo Mccabe MD 03/12/25 1030 Signed By: 03/12/25 1038 [facility] Work Phone: Laboratory - Chemistry and Chemistry - challengeon 41-29-3634Vqzv T4 [Mass/Vol]0.95 ng/dL0.76-1.46[facility] TSH Qn4.726 m[IU]/LHigh0.358-3.740[facility] HospitalBasophils Auto (Bld) [#/Vol]on 82-03-4882Ddumyjbps (Bld) [#/Vol]Automated basophil count 0.0-0.1FPremier Health Atrium Medical CenterBasophils/100 WBC Auto (Bld)on 21-88-1817Smnvwayey/100 WBC (Bld)Automated basophil %0.2-2.0[facility] HospitalCholesterol in LDL Calc [Mass/Vol]on 67-64-9109Oiwmsdexxsn in LDL [Mass/Vol]Cholesterol in LDL [Mass/volume] in Serum or Plasma by calculation [facility] HospitalComment on above:<100 mg/dl NKOGCDQ179-373 mg/dl NEAR OR ABOVE YUFGPUY008-074 mg/dl BORDERLINE NJEP923-917 mg/dl HIGH>190 mg/dl VERY HIGHCholesterol in VLDL Calc [Mass/Vol]on 20-91-7338Kvexkqvjdny in VLDL [Mass/Vol]Cholesterol in VLDL [Mass/volume] in Serum or Plasma by calculationMercy Health Clermont HospitalEosinophils/100 WBC Auto (Bld)on 37-10-6134Trcuwmemtmq/100 WBC (Bld)Automated eosinophil %0.9-7.0[facility] HospitalErythrocyte distribution width Auto (RBC) [Ratio]on 57-47-3014Txuozkacjam distribution width (RBC) [Ratio]Erythrocyte distribution width [Ratio] by Automated count11.0-15.0[facility] Estimated glomerular filtration rate (GFR) non- Americanon 10-09-2024 GFR/1.73 sq M.predicted among non-blacks MDRD (S/P/Bld) [Vol rate/Area]Estimated glomerular filtration rate (GFR) non->=60 mL/min/1.73m 2 [facility] HospitalGlobulin Calc (S) [Mass/Vol]on 10-09-2024 Globulin (S) [Mass/Vol]Serum globulin measurement by calculation (mass/volume) [facility] HospitalGlucose mean value [Mass/volume] in Blood Estimated from glycated hemoglobinon 75-64-7158Ywxtlyf glucose Estimated from glycated hemoglobin (Bld) [Mass/Vol]Glucose mean value [Mass/volume] in Blood Estimated from glycated hemoglobinMercy Health Clermont HospitalHematocrit Auto (Bld) [Volume fraction]on 57-57-5929Xkyedabdxa (Bld) [Volume fraction] Hematocrit [Volume Fraction] of Blood by Automated count36.0-48.0[facility] HospitalHemoglobin A1c percentageon 20-15-0815FwT5s (Bld) [Mass fraction]Hemoglobin A1c percentageHigh4.5-6.2FPremier Health Atrium Medical Center Comment on above:ADA RECOMMENDED LIMIT 4.0 - 6.0ADA THERAPEUTIC TARGET < 7.0ACTION SUGGESTED> 7.0Hemoglobin [Mass/volume] in Bloodon 84-07-2338Qvjslnntoe (Bld) [Mass/Vol]Hemoglobin [Mass/volume] in Blood12.0-16.0[facility] HospitalLaboratory - Chemistry and Chemistry - challengeon 10-09-2024 Albumin [Mass/Vol]3.9 g/dL3.4-5.0[facility] HospitalALP [Catalytic activity/Vol]98 U/U47-151ColsfglssMercy Health Clermont HospitalALT [Catalytic activity/Vol]22 U/O88-22PrdfxwikaMercy Health Clermont HospitalAST [Catalytic activity/Vol]17 U/H19-73GjvmmjxtaMercy Health Clermont HospitalBilirubin [Mass/Vol]0.9 mg/dL0.2-1.0[facility] HospitalCalcium [Mass/Vol]9.6 mg/dL 8.5-10.1FPremier Health Atrium Medical CenterChloride [Moles/Vol]103 mmol/L98-107 [facility] HospitalCholesterol [Mass/Vol]185 mg/dL<=200[facility] HospitalCholesterol in HDL [Mass/Vol]80 mg/gMOdlk10-25MoxdmsblvMercy Health Clermont HospitalComment on above:> or =60 mg/dl - LOW CARDIOVASCULAR RISK<40 mg/dl - HIGH CARDIOVASCULAR RISKCO2 [Moles/Vol]27.6 mmol/L21.0-32.0 [facility] HospitalCreatinine [Mass/Vol]0.84 mg/dL0.55-1.02 [facility] HospitalGFR/1.73 sq M.predicted MDRD (S/P/Bld) [Vol rate/Area]mL/min/{1.73_m2}>=60 mL/min/1.73m 2FPremier Health Atrium Medical Center Glucose [Mass/Vol]156 mg/vACmum07-816DqohigdgsMercy Health Clermont HospitalPotassium [Moles/Vol]4.3 mmol/L3.5-5.1FPremier Health Atrium Medical CenterProtein [Mass/Vol] 7.7 g/dL6.4-8.2FAvita Health Systemodium [Moles/Vol]140 mmol/L 136-145[facility] HospitalTriglyceride [Mass/Vol]68 mg/dL<=150 [facility] HospitalTSH Qn4.409 m[IU]/LHigh0.358-3.740[facility] HospitalUrea nitrogen [Mass/Vol]11.0 mg/dL7.0-18.0[facility] HospitalUrea nitrogen/Creatinine [Mass ratio]13.1 mg/mgMercy Health Clermont HospitalLaboratory - Hematology and Cell countson 10-09-2024 Immature granulocytes/100 WBC (Bld)0.5 %0.0-0.5FPremier Health Atrium Medical Center Leukocytes [#/volume] corrected for nucleated erythrocytes in Blood by Automated counon 01-14-2320WPC corrected for nucl RBC Auto (Bld) [#/Vol]Leukocytes [#/volume] corrected for nucleated erythrocytes in Blood by Automated coun 4.0-11.0[facility] HospitalLymphocytes Auto (Bld) [#/Vol]on 37-53-9352Utwuwtfjouo (Bld) [#/Vol]Lymphocytes [#/volume] in Blood by Automated count1.2-3.8[facility] HospitalLymphocytes/100 WBC Auto (Bld)on 99-79-6008Rmygnuurvkt/100 WBC (Bld)Lymphocytes/100 leukocytes in Blood by Automated count20.5-60.0[facility] HospitalMCH Auto (RBC) [Entitic mass]on 38-25-0265TMF (RBC) [Entitic mass]MCH [Entitic mass] by Automated count 26.7-34.0[facility] HospitalMCHC Auto (RBC) [Mass/Vol]on 20-49-0784XPOU (RBC) [Mass/Vol]MCHC [Mass/volume] by Automated count29.9-35.2 [facility] HospitalMCV Auto (RBC) [Entitic vol]on 65-36-7096SPI (RBC) [Entitic vol]MCV [Entitic volume] by Automated count81.0-99.0[facility] HospitalMicroalbumin [Mass/volume] in Urineon 13-49-8204Uswbbfm DL <= 20 mg/L (U) [Mass/Vol]Microalbumin [Mass/volume] in Urine<=30.0[facility] HospitalMonocytes Auto (Bld) [#/Vol]on 31-42-2260Vgwebtaap (Bld) [#/Vol]Automated blood monocyte countHigh0.3-0.8[facility] HospitalMonocytes/100 WBC Auto (Bld)on 29-57-3793Wmxconlkz/100 WBC (Bld)Automated monocyte %1.7-12.0[facility] HospitalNeutrophils Auto (Bld) [#/Vol]on 16-50-2603Gqtzkknkjds (Bld) [#/Vol]Neutrophils [#/volume] in Blood by Automated countHigh1.4-6.5FPremier Health Atrium Medical CenterNeutrophils/100 WBC Auto (Bld)on 28-44-8739Klkafpndzxc/100 WBC (Bld)Automated neutrophil %43.0-75.0 [facility] HospitalNo Panel Informationon 26-15-7403Jfquymtqwgz # (Auto)0.3 10 3/uL0.0-0.7FPremier Health Atrium Medical CenterImmature Granulocyte # (Auto)0.05 10 3/uLHigh0.00-0.03[facility] HospitalProlactin37.7 ng/mLAbnormal4.8-33.4FPremier Health Atrium Medical CenterComment on above:Performed at: - [facility] [id number] Director: Joshua Jordan PhD, Phone: [phone] Random Rchemzyauy601.10 mg/dL 20.00-300.00[facility] HospitalPlatelet mean volume Auto (Bld) [Entitic vol]on 85-66-4063Moagiqxm mean volume (Bld) [Entitic vol]Platelet mean volume [Entitic volume] in Blood by Automated countLow9.5-13.5FPremier Health Atrium Medical CenterPlatelets Auto (Bld) [#/Vol]on 12-77-6535Izjtibane (Bld) [#/Vol] Platelets [#/volume] in Blood by Automated uufel563-710CjgbrfcxkMercy Health Clermont HospitalRBC Auto (Bld) [#/Vol]on 44-66-1478DVR (Bld) [#/Vol]Erythrocytes [#/volume] in Blood by Automated count4.20-5.40[facility] Serum or plasma albumin/globulin mass ratioon 40-10-0340Ijjntgb/Globulin [Mass ratio]Serum or plasma albumin/globulin mass ratioAdams County Regional Medical Centererum or plasma anion gap determinationon 47-38-4222Myacg gap [Moles/Vol] Serum or plasma anion gap determinationAdams County Regional Medical Centererum or plasma total cholesterol/high density lipoprotein (HDL) cholesterol mass erika 52-47-8488Lxtnopzdxpq.total/Cholesterol in HDL [Mass ratio]Serum or plasma total cholesterol/high density lipoprotein (HDL) cholesterol mass ratMercy Health Clermont HospitalComment on above:3.3 - 4.4 LOW RISK4.4 - 7.1 AVERAGE RISK7.1 - 11.0 MODERATE RISK>11.0 HIGH RISKUrine microalbumin/creatinine mass ratioon 07-44-2707Ppuzfys/Creatinine DL <= 20 mg/L (U) [Mass ratio]Urine microalbumin/creatinine mass ratio0.0-29.9[facility] Comment on above:NO MICROALBUMINURIA 0-29 MG/GCLINICAL MICROALBUMINURIA 30-300 MG/GMACROALBUMINURIA >300 MG/GXR hand RT min 3V*on 40-00-2077SO hand RT min 3V* [facility] [employer] Other XR hand RT min 3V*[facility] [employer] Other XR hand RT min 3V*[address] RiceVirgin[facility] Other XR hand RT min 3V*VICKY Wall [address]XxyblVirginia Mason Health System [employer] Other XR hand RT min 3V*XRay ReportVirginia Mason Health System [employer] Other XR hand RT min 3V*SignedSeth [place] Other XR hand RT min 3V*Patient: Jing Gray MR#: [id number] [place] [employer] Other XR hand RT min 3V*[facility] [place] Other XR hand RT min 3V*: 1975 Acct:[id number] [place] Other XR hand RT min 3V*Age/Sex: 47 / F ADM Date: 01/11/23 [facility] [employer] Other XR hand RT min 3V*Loc: XDUC Room: Type: [facility] [place] Other XR hand RT min 3V*Attending Dr: Angélica GRIFFINSac[facility] Other XR hand RT min 3V*Copies to: TRINI Alvarado [facility] [employer] Other XR hand RT min 3V*Ordering Provider: ELIAS AlvaradoJohn J. [facility] [place] Other XR hand RT min 3V*Date of Service: 01/11/23Seth [place] Other XR hand RT min 3V* XR/XR hand RT min 3V*: RIGHT HAND INJURYSeth [place] Other XR hand RT min 3V*3 views right hand plain filmSeth [place] Other XR hand RT min 3V*COMPARISON: NoneNorth [place] Other XR hand RT min 3V*HISTORY: Fourth and fifth metacarpal injuryVirginia Mason Health System [facility] Other XR hand RT min 3V*ACUTE FINDINGS: [facility] [employer] Other XR hand RT min 3V*DEGENERATIVE CHANGE: Unremarkable [facility] [employer] Other XR hand RT min 3V*SOFT TISSUE FINDINGS: Unremarkable [facility] [employer] Other XR hand RT min 3V*JOINT EFFUSION: [facility] [place] Other XR hand RT min 3V*POSTOP CHANGES: [facility] [place] Other XR hand RT min 3V*BONY MINERALIZATION: [facility] Other XR hand RT min 3V* XR/XR hand RT min 3V*Seth [place] Other XR hand RT min 3V*IMPRESSION: No acute findingsVirginia Mason Health System [facility] Other XR hand RT min 3V*Impression dictated by: Blake Marino M.D.01/11/2023 6:08 [facility] Next[employer] Other XR hand RT min 3V*Dictation Location: TFPOC-XV-37Qcfvn [place] [employer] Other XR hand RT min 3V*Transcribed By: DILCIA 01/11/[address] [place] [address] [place] Other XR hand RT min 3V*Dictated By: Blake Marino DO 01/11/[address] [place] [address] [place] Other XR hand RT min 3V*Signed By:Seth [place] Other XR hand RT min 3V*01/11/[address] [place] [address] [place] Other PROLACTINon 05-58-0383Xzoxdyaal39.5 ng/mLCritically high4.8-23.3The [facility]itan HospitalComment on above:Performed By: #### PROLAC #### [facility] [address] [address] [address] Digna ThomasCBC AUTO DIFFon 59-67-8718AEQG #0.1 103/ulNormal0.0-0.1The [facility]itan HospitalComment on above:Performed By: #### CBC ####[facility] [address] [address]Dr.Digna ThomasBasophils/100 WBC (Bld)0.8 %Normal0.2-2.0The [facility] on above:Performed By: #### CBC ####[facility] Kbugfjedwr[address] [place], [place] [address]Dr.Digna ChangEO #0.5 103/ulNormal0.0-0.7The [facility]itan HospitalComment on above:Performed By: #### CBC ####[facility] Juldlzbczd[address] [place], [place] [address]Dr.Digna ChangEosinophils/100 WBC (Bld)5.0 %Normal 0.9-7.0The [facility] on above:Performed By: #### CBC ####[facility] Cmffbjwgig[address] [place], [place] [address]Dr.Digna Thomas Erythrocyte distribution width (RBC) [Ratio]13.0 %Vzgmxi42.0-15.0The [facility] on above:Performed By: #### CBC ####[facility] Gwcvyiuauz[address] [place], [place] [address]Dr.Digna ThomasHematocrit (Bld) [Volume fraction]44.6 %Coiwrf33.0-48.0The [facility] HospitalComment on above:Performed By: #### CBC ####[facility] Pniefcfwcn[address] [place], [place] [address]Dr.Digna ThomasHemoglobin (Bld) [Mass/Vol]14.4 g/dL Auubvt14.0-16.0The [facility] HospitalComment on above:Performed By: #### CBC ####[facility] [address] [address]Dr. Digna ThomasIG #0.05 10e3/ulCritically high0.00-0.03The [facility]itan HospitalComment on above:Performed By: #### CBC ####[facility] [address] [address]Dr.Anajs WilliamIG %0.5 %Normal0.0-0.5The [facility]itan HospitalComment on above:Performed By: #### CBC ####[facility] Pdhrqgxptz[address] [place], [place] [address]Dr.Digna ThomasLYMPH #2.3 103/ulNormal1.2-3.8The [facility] HospitalComment on above:Performed By: #### CBC ####[facility] Hvnbfdfqnd[address] [place], [place] [address]Dr. Digna ThomasLymphocytes/100 WBC (Bld)23.0 %Nwivcc23.5-60.0[facility] Comment on above:Performed By: #### CBC ####[facility] Rnnsaazghn[address] [place], [place] [address]Dr.Digna ThomasMANUAL DIFF REQNONormalThe [facility]itan HospitalComment on above:Performed By: #### CBC ####[facility] Oyjztsubix[address] [place], [place] [address]Dr.Digna ThomasH (RBC) [Entitic mass]28.3 ppWogusc04.7-34.0The [facility] HospitalComment on above: Performed By: #### CBC ####[facility] Mpelxmuyfd[address] [place], [place] [address]Dr.Digna ThomasHC (RBC) [Mass/Vol]32.3 g/dLNormal 29.9-35.2The [facility] HospitalComment on above:Performed By: #### CBC ####[facility] Mmfubyovgj[address] [place], [place] [address]Dr. Digna ThomasV (RBC) [Entitic vol]87.8 ePVxqbis93.0-99.0[facility] Comment on above:Performed By: #### CBC ####[facility] Ptqgovxkzp[address] [place], [place] [address]Dr.Digna ThomasMONO #0.8 103/ulNormal0.3-0.8 The [facility] HospitalComment on above:Performed By: #### CBC ####[facility] Wdjbcmbwdp[address] [place], [place] [address]Dr.Digna Thomas Monocytes/100 WBC (Bld)7.9 %Normal1.7-12.0The [facility] HospitalComment on above: Performed By: #### CBC ####[facility] Raiopicwhj[address] [place], [place] [address]Dr.Digna ThomasNEUT #6.3 103/ulNormal1.4-6.5The [facility] HospitalComment on above:Performed By: #### CBC ####[facility] Lssjdzicqh[address] [place], [place] [address]Dr.Digna ThomasNeutrophils/100 WBC (Bld)62.8 %Libtij41.0-75.0The [facility] HospitalComment on above:Performed By: #### CBC ####[facility] [address]ohhldv[address] [place], [place] [address]Dr.Digna ThomasPlatelet mean volume (Bld) [Entitic vol]9.9 fLNormal9.5-13.5 The [facility] HospitalComment on above:Performed By: #### CBC ####[facility] Uvmbrimxmn[address] [place], [place] [address]Dr.Digna MbglxCDI306 103/pkEtmcdv517-011Vyp [facility] HospitalComment on above:Performed By: #### CBC ####[facility] Iutdyhhyna[address] [place], [place] [address]Dr. Digna WilliamRBC5.08 106/ulNormal4.20-5.40The [facility] HospitalComment on above: Performed By: #### CBC ####[facility] Kxqptejoos[address] [place], [place] [address]Dr.Digna DzqppRAA78.0 103/ulNormal4.0-11.0[facility] HospitalComment on above:Performed By: #### CBC ####[facility] [address] [address]Dr.Yilan LandrumID PROFILEon 21-53-6088BARP-HDL RATIO NORMSOhioHealth Marion General HospitalComment on above:Result Comment: 3.3 - 4.4 LOW RISK 4.4 - 7.1 AVERAGE RISK 7.1 - 11.0 MODERATE RISK >11.0 HIGH RISKPerformed By: #### BMP, TSH, LIPID #### [facility] [address] [address] [address] Digna ThomasCholesterol [Mass/Vol]179 mg/dLNormal<=200[facility] Comment on above:Performed By: #### BMP, TSH, LIPID #### [facility] [address] [address] [address] Digna ThomasCholesterol in HDL [Mass/Vol]55 mg/cZHdeckc97-16Plv [facility] HospitalComment on above:Performed By: #### BMP, TSH, LIPID #### [facility] [address] [address] [address] Digna ThomasCholesterol in LDL [Mass/Vol]103.8 mg/dLSelect Medical Specialty Hospital - Cleveland-FairhillComment on above:Performed By: #### BMP, TSH, LIPID #### [facility] [address] [address] [address] Digna Morales.total/Cholesterol in HDL [Mass ratio]3.3 {ratio} NormalThe Samaritan HospitalComment on above:Performed By: #### BMP, TSH, LIPID #### [facility] [address] [address] [address] Digna Bernal NORMAL> or = 60 mg/dl - LOW CARDIOVASCULAR RISK <40 mg/dl - HIGH CARDIOVASCULAR RISKSelect Medical Specialty Hospital - Cleveland-FairhillComment on above:Performed By: #### BMP, TSH, LIPID #### [facility] [address] [address] [address] Digna ThomasLDL CALC NORMALSEE BELOWSelect Medical Specialty Hospital - Cleveland-FairhillComment on above:Result Comment: <100 mg/dl OPTIMAL 100 - 129 mg/dl NEAR OR ABOVE OPTIMAL 130 - 159 mg/dl BORDERLINE HIGH 160 - 189 mg/dl HIGH >190 mg/dl VERY HIGH Performed By: #### BMP, TSH, LIPID #### [facility] [address] [address] [address] Digna ThomasTriglyceride [Mass/Vol]101 mg/dLNormal<=150[facility] Comment on above:Performed By: #### BMP, TSH, LIPID #### [facility] [address] [address] [address] Digna ThomasVLDL CALC20.2 mg/dLSelect Medical Specialty Hospital - Cleveland-FairhillComment on above: Performed By: #### BMP, TSH, LIPID #### [facility] [address] [address] [address] Digna ThomasPROF CHEM 8 (BAS METB)on 69-98-9516Kwpmr gap [Moles/Vol]13.3 mmol/LNormalSheltering Arms HospitalComment on above:Performed By: #### BMP, TSH, LIPID #### [facility] [address] [address] [address] Digna ThomasCalcium [Mass/Vol]9.4 mg/dLNormal8.5-10.1[facility] Comment on above:Performed By: #### BMP, TSH, LIPID #### [facility] [address] [address] [address] Digna ThomasChloride [Moles/Vol]104 mmol/NLzafbp53-615SepSheltering Arms Hospital Comment on above:Performed By: #### BMP, TSH, LIPID #### [facility] [address] [address] [address] Digna ThomasCO2 [Moles/Vol]27.1 mmol/QOkxhdn87.0-32.0[facility] Comment on above:Performed By: #### BMP, TSH, LIPID #### [facility] [address] [address] [address] Digna ThomasCreatinine [Mass/Vol]0.71 mg/dLNormal0.55-1.02The [facility] HospitalComment on above:Performed By: #### BMP, TSH, LIPID #### [facility] [address] [place] [address] Dr. Digna MarieGFR-AF HONDURAN>60Normal>=60The [facility] HospitalComment on above:Performed By: #### BMP, TSH, LIPID #### [facility] [address] [place] [address] Dr. Digna MarieGFR-NON AF HONDURAN>60Normal>=60The [facility] HospitalComment on above:Performed By: #### BMP, TSH, LIPID #### [facility] [address] [place] [address] Dr. Digna ThomasGlucose [Mass/Vol]163 mg/dLCritically vwet43-324Ypp [facility] HospitalComment on above:Performed By: #### BMP, TSH, LIPID #### [facility] [address] [place] [address] Dr. Digna ThomasPotassium [Moles/Vol]4.4 mmol/LNormal3.5-5.1[facility] Comment on above:Performed By: #### BMP, TSH, LIPID #### [facility] [address] [place] [address] Dr. Digna Guallpadium [Moles/Vol]140 mmol/CRoihwg825-831Tca [facility] Comment on above:Performed By: #### BMP, TSH, LIPID #### [facility] [address] [place] [address] Dr. Digna ThomasUrea nitrogen [Mass/Vol]15.0 mg/dLNormal7.0-18.0The [facility] HospitalComment on above:Performed By: #### BMP, TSH, LIPID #### [facility] [address] [place] [address] Dr. Digna ThomasUrea nitrogen/Creatinine [Mass ratio]21.1 mg/mgNormalThe [facility]itan HospitalComment on above:Performed By: #### BMP, TSH, LIPID #### [facility] [address] [place] [address] Dr. Digna Walker 61-54-9961TAB9.955 uIU/mLCritically high0.358-3.740The [facility] HospitalComment on above:Performed By: #### BMP, TSH, LIPID #### [facility] [address] [address] [address] Digna ThomasXR CSPINE MIN 4 VIEWSon 18-26-9124DP CSPINE MIN 4 VIEWS EXAMINATION: XR CSPINE MIN 4 VIEWS HISTORY: Cervical spondylosis COMPARISON: No relevant comparison available. FINDINGS: BONES: No significant spondylosis, scoliosis, fracture, or visible bony lesion. DISC SPACES: Minimal narrowing at C6-7. PARASPINOUS: Negative. No paraspinous abnormality is seen. OTHER: Negative. IMPRESSION: 1. Suspect C6-7 mild degenerative disc disease. Electronically authenticated by: FELIPE TRINH Date: 2022-11-04 08:02[facility] Cleveland-FairhillGLYCOHEMOGLOBIN A1Con 54-29-7600MKO RECOMMENDATIONSEE BELOW NormalThe [facility]itan HospitalComment on above:Result Comment: ADA RECOMMENDED LIMIT 4.0 - 6.0 ADA THERAPEUTIC TARGET < 7.0 ACTION SUGGESTED > 7.0Performed By: #### A1C ####[facility] [address] [address]Dr.Yilan ThomasGlucose [Mass/Vol]166 mg/dLNoAdams County HospitalComment on above:Performed By: #### A1C ####[facility] [address] [address]Dr.Yilan ThomasHbA1c (Bld) [Mass fraction]7.4 % Critically high4.5-6.2The [facility] HospitalComment on above:Performed By: #### A1C ####[facility] [address] [address]Dr. Digna ThomasPROLACTINon 46-41-2353Oijejyjmj70.0 ng/mLCritically high4.8-23.3The [facility] HospitalComment on above:Performed By: #### PROLAC #### [facility] [address] [address] [address] Digna ChadwickC AUTO DIFFon 58-18-5537TBMN #0.1 103/ulNormal0.0-0.1The [facility] HospitalComment on above:Performed By: #### CBC ####[facility] [address] [place], [place] [address]Dr.Digna ChangBasophils/100 WBC (Bld)0.8 %Normal0.2-2.0The [facility] HospitalComment on above:Performed By: #### CBC ####[facility] [address]ntxfib[address] [place], [place] [address]Dr.Digna ChangEO #0.7 103/ulNormal0.0-0.7The [facility] HospitalComment on above:Performed By: #### CBC ####[facility] Ijbfnenmaq[address] [place], [place] [address]Dr.Anajs ChangEosinophils/100 WBC (Bld)5.8 %Normal 0.9-7.0The [facility] HospitalComment on above:Performed By: #### CBC ####[facility] Uinagnyodz[address] [place], [place] [address]Dr.Anajs Thomas Erythrocyte distribution width (RBC) [Ratio]12.7 %Wetckb10.0-15.0The [facility] HospitalComformerly [facility] on above:Performed By: #### CBC ####[facility] [address]wvzuai[address] [place], [place] [address]Dr.Anajs WilliamHematocrit (Bld) [Volume fraction]45.4 %Oxsntz12.0-48.0The [facility] HospitalComment on above:Performed By: #### CBC ####[facility] Lqrmlefndg[address] [place], [place] [address]Dr.Anajs ChangHemoglobin (Bld) [Mass/Vol]15.3 g/dL Xlnqfg60.0-16.0The [facility] HospitalComment on above:Performed By: #### CBC ####[facility] [address]sfyzfzled[address] [place], [place] [address]Dr. Digna ChangIG #0.04 10e3/ulCritically high0.00-0.03The [facility] HospitalComment on above:Performed By: #### CBC ####[facility] [address] [address]Dr.Digna ChangIG %0.3 %Normal0.0-0.5The [facility] HospitalComment on above:Performed By: #### CBC ####[facility] [address] [address]Dr.Digna ChangLYMPH #3.3 103/ulNormal1.2-3.8The [facility] HospitalComment on above:Performed By: #### CBC ####[facility] [address]dryu[address] [place], [place] [address]Dr. Digna ThomasLymphocytes/100 WBC (Bld)28.1 %Fqpelf65.5-60.0[facility] Comment on above:Performed By: #### CBC ####[facility] Brkdxezuhr[address] [place], [place] [address]Dr.Analan WilliamMANUAL DIFF REQNONormalThe [facility]itan HospitalComment on above:Performed By: #### CBC ####[facility] [address]awj[address] [place], [place] [address]Dr.Digna ThomasMCH (RBC) [Entitic mass]29.2 fkYxiiuz82.7-34.0The [facility] HospitalComment on above: Performed By: #### CBC ####[facility] Bratoawjyn[address] [place], [place] [address]Dr.Digna ThomasMCHC (RBC) [Mass/Vol]33.7 g/dLNormal 29.9-35.2The [facility] HospitalComment on above:Performed By: #### CBC ####[facility] [address]uyrtwqcfo[address] [place], [place] [address]Dr. Digna ThomasMCV (RBC) [Entitic vol]86.6 lXHriwic72.0-99.0The [facility] Comment on above:Performed By: #### CBC ####[facility] Fakyfytsbt[address] [place], [place] [address]Dr.Digna ThomasMONO #0.8 103/ulNormal0.3-0.8 The [facility]itan HospitalComment on above:Performed By: #### CBC ####[facility] [address] [address]Dr.Digna Thomas Monocytes/100 WBC (Bld)6.4 %Normal1.7-12.0The [facility] HospitalComformerly [facility] on above: Performed By: #### CBC ####[facility] [address]qfvgu[address] [place], [place] [address]Dr.Digna ThomasNEUT #6.9 103/ulCritically high1.4-6.5 The [facility] HospitalComformerly [facility] on above:Performed By: #### CBC ####[facility] [address]ccyhobbtj[address] [place], [place] [address]Dr.Digna Thomas Neutrophils/100 WBC (Bld)58.6 %Qexcbm52.0-75.0The [facility] on above:Performed By: #### CBC ####[facility] [address]dgmstdd[address] [place], [place] [address]Dr.Digna ThomasPlatelet mean volume (Bld) [Entitic vol] 10.0 fLNormal9.5-13.5The [facility] HospitalComformerly [facility] on above:Performed By: #### CBC ####[facility] [address]yeawaiytt[address] [place], [place] [address]Dr. Digna ThomasPLT242 103/lbLweksl959-429Yyn [facility] on above: Performed By: #### CBC ####[facility] Qioweywbax[address] [place], [place] [address]Dr.Digna ThomasRBC5.24 106/ulNormal4.20-5.40The [facility] on above:Performed By: #### CBC ####[facility] [address]ukajqmbwc[address] [place], [place] [address]Dr.Digna ThomasWBC11.8 103/ul Critically high4.0-11.0The [facility] on above:Performed By: #### CBC ####[facility] [address]zy[address]xddxv[address] [place], [place] [address]Dr. Digna WilliamGLYCOHEMOGLOBIN A1Con 69-02-3860EHS RECOMMENDATIONSEE BELOWNormalThe Jose HospitalComment on above:Result Comment: ADA RECOMMENDED LIMIT 4.0 - 6.0 ADA THERAPEUTIC TARGET < 7.0 ACTION SUGGESTED > 7.0Performed By: #### A1C ####[facility] [address]qimmmaxm[address] [place], [place] [address]Dr. Digna ThomasGlucose [Mass/Vol]183 mg/dLSelect Medical Specialty Hospital - Cleveland-FairhillComment on above:Performed By: #### A1C ####[facility] [address]mddubziio[address] [place], [place] [address]Dr.Digna ThomasHbA1c (Bld) [Mass fraction]8.0 % Critically high4.5-6.2The [facility] HospitalComment on above:Performed By: #### A1C ####[facility] Olutswvldl[address] [place], [place] [address]Dr. Digna ThomasLIPID PROFILEon 63-09-0471FSZK-HDL RATIO NORMSEE [facility] HospitalComformerly [facility] on above:Result Comment: 3.3 - 4.4 LOW RISK 4.4 - 7.1 AVERAGE RISK 7.1 - 11.0 MODERATE RISK >11.0 HIGH RISKPerformed By: #### BMP, LIPID, TSH ####[facility] [facility] [id number] [place], [place] [address]Dr. Digna ThomasCholesterol [Mass/Vol]161 mg/dLNormal<=200[facility]Com[facility] on above:Performed By: #### BMP, LIPID, TSH ####[facility] [address] [place], [place] [address]Dr. Digna Thomas Cholesterol in HDL [Mass/Vol]51 mg/fOCismsc46-65Uik [facility] Centerment on above:Performed By: #### BMP, LIPID, TSH ####[facility] [address] [place], [place] [address]Dr. Digna ThomasCholesterol in LDL [Mass/Vol] 86.2 mg/dLOhioHealth Van Wert [facility] on above:Performed By: #### BMP, LIPID, TSH ####[facility] [address] [place], [place] [address]Dr. Digna ThomasCholesterol.total/Cholesterol in HDL [Mass ratio]3.2 {ratio} NormalSheltering Arms HospitalComment on above:Performed By: #### BMP, LIPID, TSH ####[facility] [address] [place] [address]Dr. Digna ChangHDL NORMAL> or = 60 mg/dl - LOW CARDIOVASCULAR RISK <40 mg/dl - HIGH CARDIOVASCULAR RISKSelect Medical Specialty Hospital - Cleveland-FairhillComment on above:Performed By: #### BMP, LIPID, TSH ####[facility] [address] [place] [address]Dr. Digna ChangLDL CALC NORMALSEE BELOWSelect Medical Specialty Hospital - Cleveland-FairhillComment on above:Result Comment: <100 mg/dl OPTIMAL 100 - 129 mg/dl NEAR OR ABOVE OPTIMAL 130 - 159 mg/dl BORDERLINE HIGH 160 - 189 mg/dl HIGH >190 mg/dl VERY HIGHPerformed By: #### BMP, LIPID, TSH ####[facility] [address] [place] [address]Dr. Digna ThomasTriglyceride [Mass/Vol]119 mg/dLNormal<=150Sheltering Arms HospitalComment on above:Performed By: #### BMP, LIPID, TSH ####[facility] [address] [place] [address]Dr. Digna ChangVLDL CALC23.8 mg/dLNoAdams County HospitalComment on above:Performed By: #### BMP, LIPID, TSH ####[facility] [address] [place] [address]Dr. Digna ChangMG MAMM SCREEN 3D JANE CADon [id number] MAMM SCREEN 3D JANE CADPatient: JING GRAY Exam Date: 07/11/2022 : 1975 Gender:F Ordering : DR KELECHI GALVAN D.O. Admission #: [id number] Family : Order #: [id number] CLICK HERE TO VIEW EXAM RADIOLOGY REPORT [...] bladder cancer at age 51. LOCATION: [facility] BREAST COMPOSITION: Scattered areas fibroglandular density. [...] by: Angela Cagle MD on 07/11/2022 at 10:14[facility] MICROALBUMIN, RAND URon [id number] mg/LNormal<=30.0[facility] Comment on above:Performed By: #### MALBR #### [facility] [address] [address] [address] Digna ThomasPROKei CHEM 8 (BAS METB)on 22-72-9648Lcpwd gap [Moles/Vol]10.6 mmol/LNormalThe Samaritan HospitalComment on above:Performed By: #### BMP, LIPID, TSH ####[facility] [address] [place] [address]Dr. Digna ThomasCalcium [Mass/Vol]9.3 mg/dLNormal8.5-10.1The [facility] HospitalComment on above:Performed By: #### BMP, LIPID, TSH ####[facility] [address] [place] [address]Dr. Digna Thomas Chloride [Moles/Vol]99 mmol/AMvhlae57-814Chp [facility] HospitalComment on above: Performed By: #### BMP, LIPID, TSH ####[facility] [address] [place] [address]Dr. Yilan ChangCO2 [Moles/Vol]28.3 mmol/LNormal 21.0-32.0The [facility] HospitalComment on above:Performed By: #### BMP, LIPID, TSH ####[facility] [address] [place] [address]Dr. Yilan ChangCreatinine [Mass/Vol]0.74 mg/dLNormal0.55-1.02[facility] Comment on above:Performed By: #### BMP, LIPID, TSH ####[facility] [address] [place] [address]Dr. Yilan ChangEGFR-AF HONDURAN>60Normal>=60The [facility] HospitalComment on above:Performed By: #### BMP, LIPID, TSH ####[facility] [address] [place] [address]Dr. Yilan ChangEGFR-NON AF HONDURAN>60Normal>=60[facility] Comment on above:Performed By: #### BMP, LIPID, TSH ####[facility] [address] [place] [address]Dr. Yilan ChangGlucose [Mass/Vol]190 mg/dLCritically mmpk35-539Biw [facility] HospitalComment on above: Performed By: #### BMP, LIPID, TSH ####[facility] [address] [place] [address]Dr. Yilan ChangPotassium [Moles/Vol]3.9 mmol/L Normal3.5-5.1The [facility] HospitalComment on above:Performed By: #### BMP, LIPID, TSH ####[facility] [address] [place] [address]Dr. Yilan ChangSodium [Moles/Vol]134 mmol/LCritically zog136-666Eya [facility] HospitalComment on above:Performed By: #### BMP, LIPID, TSH ####[facility] [address] [place] [address]Dr. Yilan ChangUrea nitrogen [Mass/Vol]13.0 mg/dLNormal7.0-18.0[facility] Comment on above:Performed By: #### BMP, LIPID, TSH ####[facility] [address] [place], [place] [address]NsDr. Digna ThomasUrea nitrogen/Creatinine [Mass ratio]17.6 mg/mgNormalThe [facility]itan HospitalComment on above:Performed By: #### BMP, LIPID, TSH ####[facility] [address] [place], [place] [address]XpDr. Digna Walker 20-17-3848TWG6.084 uIU/mLCritically high0.358-3.740The [facility] HospitalComment on above:Performed By: #### BMP, LIPID, TSH #### [facility] [address] [place], [place] [address] Dr. Digna Thomas Vital Signs Date TimeVital SignValuePerforming YuslpljtyGpjvztle12-75-4959 14:54-0400Body jmqezc549.1 cmBenjamin Ball DO Work Phone: [phone] [place], [place] [address]10-29-2025 14:54-0400 Body mass index (BMI) [Ratio]49.9 kg/e4Lcbvijju Ball DO Work Phone: [phone]10-29-2025 14:54-0400 Body zakpuh919.19 kgBenjamin Ball DO Work Phone: [phone] [place], [place] [address]10-29-2025 14:54-0400 Diastolic blood rtcpguih33 mm[Hg]Kelechi Ball DO Work Phone: [phone] [place], [place] [address]10-29-2025 14:54-0400 Heart rate84 /minBenjamin Ball DO Work Phone: [phone] [place], [place] [address]10-29-2025 14:54-0400 Systolic blood ehgfblza250 mm[Hg]Kelechi Ball DO Work Phone: [phone])382-[address] [place], [place] 6706208-13-2025 08:28-0400 Body bopgnb236.1 cmBenjamin Ball DO Work Phone: [phone]08-13-2025 08:28-0400 Body mass index (BMI) [Ratio]50.3 kg/p8Mfvxtkbe Ball DO Work Phone: [phone] [place], [place] 6706208-13-2025 08:28-0400 Body biuwkm466.21 kgBenjamin Ball DO Work Phone: [phone] [place], [place] 6706208-13-2025 08:28-0400 Diastolic blood mm[Hg]Kelechi Ball DO Work Phone: [phone] [place], [place] 6706208-13-2025 08:28-0400 Heart rate65 /minBenjamin Ball DO Work Phone: [phone]08-13-2025 08:28-0400 Respiratory rate12 /minBenjamin Ball DO Work Phone: [phone] [place], [place] [address]08-13-2025 08:28-0400 SaO2% (BldA) [Mass fraction]97 %Kelechi Ball DO Work Phone: [phone] [place], [place] 6706208-13-2025 08:28-0400 Systolic blood uanwches717 mm[Hg]Kelechi Ball DO Work Phone: [phone] [place], [place] 6706204-18-2025 08:36-0400 Body wvvjbe906.1 cm[facility]04-18-2025 08:36-0400Body mass index (BMI) [Ratio]50.4 kg/p6OmkjdirjwMercy Health Clermont Hospital04-18-2025 08:36-0400Body zxjixg486.43 kgMercy Health [facility] Hospital04-18-2025 08:36-0400Diastolic blood vrmesfrd78 mm[Hg][facility] 12-27-2024 08:36-0400Heart rate66 /[facility] 12-27-2024 08:36-0400Respiratory rate12 /[facility] 12-27-2024 08:36-7998JdH1% (BldA) [Mass fraction]98 %[facility]04-18-2025 08:36-0400Systolic blood htmervtw284 mm[Hg][facility]02-16-2025 13:58-0500Body upxbrz647.1 cmMer[facility] Health [facility]02-16-2025 13:58-0500Body mass index (BMI) [Ratio]49.4 kg/j8BkwgjovocMercy Health Clermont Hospital02-16-2025 13:58-0500Body gtahqt406.71 kgMercy Health [facility] Hospital02-16-2025 13:58-0500Diastolic blood yuhikila72 mm[Hg] [facility]02-16-2025 13:58-0500Heart rate83 /[facility]02-16-2025 13:58-0500Respiratory rate18 /[facility]02-16-2025 13:58-5380AbY2% (BldA) [Mass fraction]99 % [facility]02-16-2025 13:58-0500Systolic blood fwyprklo802 mm[Hg][facility]12-13-2024 08:40-0500Body rhokbj804.1 cm [facility]12-13-2024 08:40-0500Body mass index (BMI) [Ratio]46 kg/b1LyokcteliMercy Health Clermont Hospital12-13-2024 08:40-0500Body weight 125.36 kgMercy Health [facility] Hospital12-13-2024 08:40-0500Diastolic blood ifmvvrao88 mm[Hg][facility]12-13-2024 08:40-0500Heart rate66 /[facility]12-13-2024 08:40-0500Respiratory rate16 /[facility]12-13-2024 08:40-0500Systolic blood aabzymwn093 mm[Hg][facility]12-08-2024 12:29-0500Body kgsfat073.1 cmMercy Health [facility]12-08-2024 12:29-0500Body mass index (BMI) [Ratio]48.4 kg/f6DowdcgcdhMercy Health Clermont Hospital12-08-2024 12:29-0500Body jkgfagtjgzu36.8 [degF][facility]12-08-2024 12:29-0500Body kgMercy Health Cl[facility] Hospital12-08-2024 12:-0500Diastolic blood vnyrrhjm20 mm[Hg][facility] 08-18-2024 12:29-0500Heart rate76 /[facility] 08-18-2024 12:29-0500Respiratory rate17 /[facility] 08-18-2024 12:29-1155GnA8% (BldA) [Mass fraction]97 %[facility]12-08-2024 12:29-0500Systolic blood twvbxpox237 mm[Hg][facility]11-27-2024 13:26-0500Body .1 cmNicole Sugey DO Work Phone: [facility] HospitalZldxzjfakl38-62-1739 13:26-0500Body mass index (BMI) [Ratio]45.43 kg/e1Fazrdb Sugey DO Work Phone: [facility] HospitalJfvghesgdr04-80-3353 13:26-0500Body ryyvot982.83 kgNicole Sugey DO Work Phone: [facility] HospitalIduhsywevx94-45-2848 13:26-0500Diastolic blood mm[Hg]Antione Sugey DO Work Phone: [facility] HospitalCjjcxsuxgo70-68-9766 13:26-0500Heart rate70 /min Antione Sugey DO Work Phone: [facility] HospitalSqrmgpafvd12-58-4649 13:4022VlM1% (BldA) [Mass fraction]97 %Antione Sugey DO Work Phone: [place] [address]Fpihtcbesm83-72-8007 13:26-0500Systolic blood pcppkjuw544 mm[Hg]Antione Sugey DO Work Phone: [place] [address]Hlpuwohqwo81-03-3676 10:35-0500Body xmvewv953.1 cmMer[facility]11-11-2024 10:35-0500Body mass index (BMI) [Ratio]44.1 kg/x4HaiiaxyrkMercy Health Clermont Hospital11-11-2024 10:35-0500Body urfbgq758.25 kgMercy Health [facility] Hospital11-11-2024 10:35-0500Diastolic blood bymnzyyq53 mm[Hg][facility]11-11-2024 10:35-0500 Heart rate74 /[facility]11-11-2024 10:35-0500 Respiratory rate16 /[facility]11-11-2024 10:35-0500 Systolic blood acelkngq138 mm[Hg][facility]10-11-2024 11:44-0400Body ndhbdy753.1 cmMer[facility] Health [facility]10-11-2024 11:44-0400Body mass index (BMI) [Ratio]42.3 kg/i2XyhbrzmksMercy Health Clermont Hospital10-11-2024 11:44-0400Body bdxvys208.26 [facility] 06-21-2024 11:44-0400Diastolic blood ohggppbe42 mm[Hg][facility]10-11-2024 11:44-0400Heart rate71 /[facility] 06-21-2024 11:44-0400Respiratory rate12 /[facility] 06-21-2024 11:44-0400Systolic blood adhvotqt555 mm[Hg][facility]08-06-2024 08:34-0400Body ltyymj629.1 cmMer[facility] 04-16-2024 08:34-0400Body mass index (BMI) [Ratio]40.3 kg/i3InpwdumhoMercy Health Clermont Hospital08-06-2024 08:34-0400Body gidjpj538.99 kgMercy Health [facility] Hospital08-06-2024 08:34-0400Diastolic blood faumowpx38 mm[Hg][facility]08-06-2024 08:34-0400Heart rate71 /[facility]08-06-2024 08:34-0400Respiratory rate12 /[facility]08-06-2024 08:34-0400Systolic blood kpialdox476 mm[Hg][facility]05-18-2024 13:11-0400Body ewcvdv472.1 cmMer[facility] Health [facility]05-18-2024 13:11-0400Body mass index (BMI) [Ratio]42.9 kg/z1UpyjeoojpMercy Health Clermont Hospital05-18-2024 13:11-0400Body bwjeqbozcjm87.1 [degF][facility]05-18-2024 13:11-0400Body .02 kg [facility]05-18-2024 13:11-0400Heart rate64 /[facility]05-18-2024 13:11-0400Respiratory rate16 /[facility]05-18-2024 13:11-7893TiE6% (BldA) [Mass fraction]97 % [facility]05-06-2024 08:41-0400Body edyxlx589.1 cm [facility]05-06-2024 08:41-0400Body mass index (BMI) [Ratio]43 kg/t5DsxdvafsxMercy Health Clermont Hospital05-06-2024 08:41-0400Body weight 117.25 kgMercy Health [facility] Hospital05-06-2024 08:41-0400Diastolic blood hyhwdknb76 mm[Hg][facility]05-06-2024 08:41-0400Heart rate76 /[facility]05-06-2024 08:41-0400Respiratory rate12 /[facility]05-06-2024 08:41-0400Systolic blood jutcrtyg265 mm[Hg][facility]03-11-2024 12:57-0400Body ufyxtv686.1 cmMercy Health [facility]03-11-2024 12:57-0400Body mass index (BMI) [Ratio]46.3 kg/c5NdimcpgszMercy Health Clermont Hospital03-11-2024 12:57-0400Body eroazr074.26 kgMercy Health Cl[facility] Hospital03-11-2024 12:57-0400Diastolic blood cbbqqtiy26 mm[Hg][facility] 11-20-2023 12:57-0400Systolic blood kworunir901 mm[Hg][facility]02-06-2024 09:00-0500Body gxhski213.1 cmBenjamin Ball Other [facility] [place] Other 02-06-2024 09:00-0500Body mass index (BMI) [Ratio] 48.49 kg/r2Obnssbex Ball Other [facility] [place] Other 02-06-2024 09:00-0500Body .18 kgBenjamin Ball Other [facility] [employer] [place] Other 02-06-2024 09:00-0500Diastolic blood mm[Hg] Kelechi Ball Other [facility] [employer] [place] Other 02-06-2024 09:00-0500Respiratory rate12 /minBenjamin Ball Other [facility] [employer] [place] Other 02-06-2024 09:00-0500Systolic blood jwvedsyl668 mm[Hg] Kelechi Ball Other [facility] [employer] [place] Other 01-12-2024 09:00-0500Body ziaopa541.1 cmBenjamin Ball Other [facility]01-12-2024 09:00-0500 Body mass index (BMI) [Ratio]50.25 kg/s5Uxmvvnfh Ball Other [facility] [employer] [place] Other 01-12-2024 09:00-0500Body smbhtu469.99 kgBenjamin Ball Other [facility] [employer] [place] Other 01-12-2024 09:00-0500Body upxuzl645.98 kgMer[facility]01-12-2024 09:00-0500Diastolic blood gslczujc29 mm[Hg] Kelechi Ball Other [facility]01-12-2024 09:00-0500 Respiratory rate12 /minBenjamin Ball Other [facility] [employer] [place] Other 01-12-2024 09:00-0500Systolic blood svlyasmv925 mm[Hg] Kelechi Ball Other [facility]12-12-2023 08:30-0500 Body .1 cmBenjamin Ball Other [facility]12-12-2023 08:30-0500 Body mass index (BMI) [Ratio]52.95 kg/x7Ihogjpbq Ball Other [facility] [employer] [place] Other 12-12-2023 08:30-0500Body hylxoe457.34 kgBenjamin Ball Other [facility] [employer] [place] Other 12-12-2023 08:30-0500Body vmkykw640.33 kgMer[facility]12-12-2023 08:30-0500Diastolic blood yrevqpux53 mm[Hg] Kelechi Ball Other [facility]12-12-2023 08:30-0500 Respiratory rate12 /minBenjamin Ball Other [facility] [employer] [place] Other 12-12-2023 08:30-0500Systolic blood rlhqyhev907 mm[Hg] Kelechi Ball Other [facility]09-15-2023 09:40-0400 Body xduyzm253.1 cmPamela Hue Other [facility] [employer] [place] Other 09-15-2023 09:40-0400Body mass index (BMI) [Ratio] 51.88 kg/s5Cuhxxq Hue Other [facility] [employer] [place] Other 09-15-2023 09:40-0400Body yqbnivaipaw36 [degF]Angélica Swann Other [employer] Other 09-15-2023 09:40-0400Body ywqktp125.43 kgAngélica Swann Other [employer] Other 09-15-2023 09:40-0400Diastolic blood cwjorfhz16 mm[Hg] Angélica Mcqueenmond Other [employer] Other 09-15-2023 09:40-0400Respiratory rate18 /minAngélica Swann Other [employer] Other 09-15-2023 09:40-5823PpS1% (BldA) [Mass fraction]96 % Angélica Mcqueenmond Other [employer] Other 09-15-2023 09:40-0400Systolic blood mdxdkevw146 mm[Hg] Angélica Swann Other [employer] Other 06-20-2023 13:15-0400Body bhycsm969.1 cmBenjamin Ball Other [employer] Other 06-20-2023 13:15-0400Body mass index (BMI) [Ratio] 52.55 kg/j6Gwwdorkq Ball Other [employer] Other 06-20-2023 13:15-0400Body .25 kgBenjamin Ball Other [employer] Other 06-20-2023 13:15-0400Diastolic blood mm[Hg] Kelechi Ball Other [employer] Other 06-20-2023 13:15-0400Respiratory rate12 /minBenjamin Ball Other [employer] Other 06-20-2023 13:15-0400Systolic blood ybgxnzhd457 mm[Hg] Kelechi Ball Other [employer] Other 05-08-2023 12:30-0400Body xtooan796.1 cmBenjamin Ball Other [employer] Other 05-08-2023 12:30-0400Body mass index (BMI) [Ratio] 52.28 kg/h8Oqcqgxnm Ball Other [employer] Other 05-08-2023 12:30-0400Body .52 kgBenjamin Ball Other [employer] Other 05-08-2023 12:30-0400Diastolic blood ztyiqujn19 mm[Hg] Kelechi Ball Other [employer] Other 05-08-2023 12:30-0400Respiratory rate16 /minBenjamin Ball Other [employer] Other 05-08-2023 12:30-0400Systolic blood kraerpsp956 mm[Hg] Kelechi Ball Other [employer] Other 05-03-2023 18:10-0400Body zkugda732.1 cmPamela Hue Other [employer] Other 05-03-2023 18:10-0400Body mass index (BMI) [Ratio] 52.41 kg/y5Hkmfbc Hue Other [employer] Other 05-03-2023 18:10-0400Body obygqunmyjz59.6 [degF]Angélica Swann Other [employer] Other 05-03-2023 18:10-0400Body ugxssy525.88 kgAngélica Swann Other [employer] Other 05-03-2023 18:10-0400Diastolic blood tjrytawt27 mm[Hg] Agnélica Swann Other [employer] Other 05-03-2023 18:10-0400Respiratory rate20 /minAngélica Swann Other [employer] Other 05-03-2023 18:10-1751RfV8% (BldA) [Mass fraction]96 % Angélica Swann Other [employer] Other 05-03-2023 18:10-0400Systolic blood hbtphdni799 mm[Hg] Angélica Swann Other [employer] Other 02-07-2023 12:00-0500Body owqlik597.1 cmBenjamin Ball Other [employer] Other 02-07-2023 12:00-0500Body mass index (BMI) [Ratio] 52.31 kg/r4Qtvstgmr Ball Other [employer] Other 02-07-2023 12:00-0500Body ortask054.61 kgBenjamin Ball Other [employer] Other 02-07-2023 12:00-0500Diastolic blood nhhriexb40 mm[Hg] Kelechi Galvan Other [facility] [place] Other 02-07-2023 12:00-0500Respiratory rate12 /minBenavelino Galvan Other [facility] [place] Other 02-07-2023 12:00-0500Systolic blood lpbkgnme256 mm[Hg] Kelechi Galvan Other [facility] [place] Other Encounters Encounter DateEncounter TypeCare ProviderFacilityStart: 07-09-2025 End: 41-04-7499sfdhwmutuqIdvemcnt Ball DO Work Phone: [facility]Start: 07-09[facility]2025 End: 95-03-2901Vdpahhy encounter procedureBenavelino Galvan DO-[facility] Work Phone: Start: 07-08-2025 End: 27-24-3007vowhtxomgvNusoolbn Ball DO Work Phone: -[facility]ospStart: 07-08-2025 End: 15-97-5080Jsrojmou ReferredEmiliana Gilbert PA-C-[facility]ospStart: 10-08-8718Ivknlibqzj Juan F Gilbert PA-C-[facility] HospStart: 52-62-9850Wep-patient / Non-visitEmiliana Gilbert PA-C- [facility] [employer] Work Phone: Start: 04-23-2025 End: 48-28-2453mirhwgbiunEelwqkvj Ball DO Work Phone: [facility] Work Phone: Start: 04-23-2025 End: 10-56-2304Vsprlhg encounter procedureBenavelino Galvan DO-[facility] Work Phone: Start: 04-14-2025 End: 32-76-7194oenbrrwnqkOkblfxp Vytautas Giedraitis MDFacility:[facility] Start: 97-57-7542bqecomykupLovzxxzsdhd AbdelazizFacility:[facility] Centertart: 03-12-2025 End: 04-10-1393Pyyocut encounter procedureJeny FELIZ-MRI [address] Work Phone: Start: 03-12-2025 End: 00-65-5462efccpfzvhkFonxmreu Ball DO Work Phone: [facility] Work Phone: Start: 12-27-2024 End: 63-05-3663mclghjaviuLybnodvgrMemorial Health [facility] Work Phone: Start: 12-27-2024 End: 79-21-2585Clkbash encounter procedureNov[facility] Work Phone: Start: 19-88-6449Cmm-patient / Non-visitNov[facility] Work Phone: Start: 10-27-2024 End: 49-09-1854ewlhakvfwrTjomcnxdhFlower Hospital Work Phone: Start: 10-27-2024 End: 30-70-1861Zrsorgc encounter procedureNov[facility] Health [facility] Work Phone: Start: 52-99-1443Usc-patient / Non-visitNov[facility] Health [facility] Work Phone: Start: 43-59-1928Vnt-patient / Non-visitNov[facility] Health [facility] Work Phone: Start: 08-23-2024 End: 93-40-7803Tjkcenpkk for general adult medical examination without abnormal findingsAdams County Regional Medical Centertart: 08-23-2024 End: 99-20-2986Zccqxfr encounter procedureNov[facility] Work Phone: Start: 28-61-2143Tpqtwzx encounter statusAdams County Regional Medical Centertart: 08-18-2024 End: 29-69-4071Skjgxou encounter procedureNovant Health [facility] Work Phone: Start: 08-07-2024 End: 68-96-5563Inffwt flowsheetNicole Sugey DO Work Phone: [facility] [address] [facility]Start: 08-07-2024 End: 48-58-6992Vgtmqy flowsheetNicole Sugey DO Work Phone: [facility] [address] [facility]TEStart: 08-07-2024 End: 18-43-0385Efnbkf outpatient visit 25 minutesNicole Sugey DO Work Phone: [facility] [address] R[address]TEComment on above:REBA (obstructive sleep apnea) (Primary Dx); Hypoxia; Hypersomnia; Obesity due to excess calories, unspecified class, unspecified whether serious comorbidity present; SnoringStart: 08-07-2024 End: 88-20-8560lfnokwbwqqIVUHDA DANNERNot AvailableStart: 07-22-2024 End: 85-23-5865zeskuyllkfEhxalytleFlower Hospital Work Phone: Start: 07-22-2024 End: 92-24-3224Uouvgfi encounter procedureNovant Health [facility] Physician GroupOhio[facility] Work Phone: Start: 06-21-2024 End: 74-37-6539zwevbamezuYpdoodrtrFlower Hospital Work Phone: Start: 06-21-2024 End: 76-11-4219Qpjgieo encounter procedureNovant Health [facility] Physician GroupOhioHealth [facility] Work Phone: Start: 04-16-2024 End: 51-26-0845aormuxglqkNbbxlldyaMemorial Health System [facility] Work Phone: Start: 04-16-2024 End: 42-76-9953Xxpagzc encounter procedureNovant Health [facility] Physician GroupOhio[facility] Work Phone: Start: 01-27-2024 End: 50-97-6267wccvbapravQmeuamsqnFlower Hospital Work Phone: Start: 01-27-2024 End: 65-63-0722Ugpgdzw encounter procedureMaurizio Physician Group-[facility] Work Phone: Start: 01-15-2024 End: 15-77-2045jjgcmvycftCozgmdtexFlower Hospital Work Phone: Start: 01-15-2024 End: 47-87-3896Hjgtoty encounter procedureMaurizio Physician Group-[facility] Work Phone: Start: 74-94-7470Xnn-patient / Non-visitFirstonesprings [facility] [employer] Work Phone: Start: 10-27-2023 End: 46-92-5040dajsrsdvivPhxkufmjrFlower Hospital Work Phone: Start: 10-27-2023 End: 17-07-0338Vwvcnzc encounter procedureMaurizio Physician Group-[facility] Work Phone: Start: 10-20-2023 End: 39-19-5457ujxixibklwGavqtuxo Ball Other [employer] Other Start: 58-76-1158Jmnphofeq by computer linkKelechi MarcNADEEM Marc Medical ClinicStart: 10-17-2023 End: 76-02-6445lzbxovguyfQwqazrve Ball Other [employer] Other Start: 05-23-9522Niffyu outpatient visit 15 minutes Kelechi JorgeTato [facility] ClinicStart: 09-22-2023 End: 96-01-2302hisvxuufrdCsbuctky Ball Other [employer] Other Start: 80-58-9260Yvdgdk outpatient visit 15 minutes Kelechi JorgeTato [facility] Medical ClinicStart: 09-22-2023 End: 46-38-9370Kqmdneu encounter procedureFirelands Physician Group-[facility] Work Phone: Start: 09-08-2023 End: 60-76-6449daptrhbpcrQyfzitfg Ball Other [employer] Other Start: 26-97-9277Fxyozpffk encounterBenavelino Galvan Medical ClinicStart: 08-28-2023 End: 95-41-2085iwfgwteqwrIgqhxohn Ball Other [employer] Other Start: 19-63-3096Jtajecihv encounterBenavelino Galvan Medical ClinicStart: 08-26-2023 End: 45-92-5464jhfnbkmnxqRltovawg Ball Other [facility] [place] Other Start: 64-23-8326Ccqiiotnf encounterBenavelino Galvan Medical ClinicStart: 08-22-2023 End: 38-07-4286xeiauvijrpVkehjfvx Ball Other [employer]oku Other Start: 17-67-1896Oxjytscjf for general adult medical examination without abnormal findingsKelechi Galvan Medical ClinicStart: 60-69-5728Wtcmojyd preventive med est patient 40-64yrsBenavelino Galvan Medical ClinicStart: 08-22-2023 End: 51-28-9049Rvoasya encounter procedureFircheyanne Physician Group-[facility] Work Phone: Start: 05-26-2023 End: 29-71-5414bkfhfekqizNekzrd Dymond Other noThe [facility] [place] Other Start: 48-34-2595Eqgghp outpatient visit 15 minutes [facility]lica [facility] ClydeStart: 04-18-2023 End: 18-68-3485quqrupshqnJykffoax Ball Other noMoku Other Start: 24-01-9534Oslpni outpatient visit 15 minutes [facility]chi [facility]Start: 02-28-2023 End: 88-87-6835lelzgessmzXikfdgkj Ball Other noMoku Other Start: 47-48-7217Hiqpcu outpatient visit 15 minutes Kelechi PatelG [facility] ClinicStart: 01-19-2023 End: 80-92-3594xzclbcqkqlJqmjdyzr Ball Other [employer]Moku Other Start: 86-83-3681Eqqvebjhw encounterBenjakan PatelG [facility] ClinicStart: 01-16-2023 End: 40-07-5041xyusurqlxqNxzvfyou Ball Other noMoku Other Start: 01-92-9544Elaxkm outpatient visit 25 minutes [facility] ClinicStart: 01-11-2023 End: 40-93-7162Kxmowgl encounter procedureNP-C Angélica Swann Work Phone: [facility] Work Phone: Start: 01-11-2023 End: 23-69-9078zkzliuzwzaLX-C Angélica Swann Work Phone: [facility] Work Phone: Start: 35-03-0858Jlpafz outpatient visit 15 minutes Angélica SwannFPG [facility] ClydeStart: 45-32-5845Qqlfjmzqm encounterBenjakan Little [facility] ClinicStart: 05-20-5982Ifoocjhxw for general adult medical examination without abnormal findingsDR KELECHI GALVANThe [facility] HospitalStart: 01-05-2023 End: 07-30-6002ilhelzwwfgUH KELECHI GALVANFacility:I2Fscch: 01-05-2023 End: 34-14-2030Ratunigxq for general adult medical examination without abnormal findingsDR KELECHI BALLFacility:Y3Waiet: 01-03-2023 End: 40-74-2419oeanondczaSgtmsyms Ball Other noMoku Other Start: 32-85-8186Zzspnitrx for general adult medical examination without abnormal findingsBenjamin BallFPG [facility] ClinicStart: 14-86-9827Igtkvsq encounter statusBenjamin Ball Other noMoku Other Start: 88-12-8811Feibabyew encounterBenjamin BallFPG [facility] ClinicStart: 12-21-2022 End: 31-69-9437dnzegobgtkPA KELECHI BALLFacility:X3Xcvkd: 12-08-2022 End: 77-53-9923wdgfvmcszkUN KELECHI BALLFacility:T4Yoapl: 11-23-2022 End: 39-34-8914hhjtllrhjfQxqwgdwy Ball Other [employer] Other Start: 11-21-2031Bcztglixr encounterBenjamin BallFPG [facility] ClinicStart: 11-16-2022 End: 16-01-0145ptkqvxyjdiXI KELECHI BALLFacility:Y5Fmits: 11-09-2022 End: 68-54-9460vtmilnmqaoJZ KELECHI BALLFacility:H7Vbykm: 11-03-2022 End: 84-58-0787fihzalpahnKW KELECHI BALLFacility:Y8Qcpjf: 10-27-2022 End: 16-06-5000dbtacgyymbOV KELECHI BALLNort [place] Other Start: 78-23-7963Dpxbmkcdr encounterBenjamin BallFPG [facility] ClinicStart: 10-18-2022 End: 98-54-8972gbxxbmeqzzNttrxmfs Ball Other noMoku Other Start: 33-50-4644Kndfoj outpatient visit 25 minutes [facility]lechi [facility] ClinicStart: 10-07-2022 End: 92-33-9981awmolbphumRpwkvoaq Ball Other [facility] [place] Other Start: 12-74-6473Ltwdrgcxc encounterBenathaniel Galvan Medical ClinicStart: 44-63-2475Kkumb health examinationBenathaniel Galvan Other [facility] [place] Other Start: 07-11-2022 End: 55-93-2058phercdfohwLS KELECHI GALVANFacility:D7Ojcci: 04-07-2022 End: 87-59-5237gdnbitsgukIC DEANN ELIAS .Facility:Z5Wztaq: 11-81-2986Coh- procedure evaluation checkKelechi Galvan Other [facility] [place] Other Start: 07-05-9914Qzvqdtguhlvtc examination normal Kelechi Galvan Other [facility] [place] Other Procedures DateProcedureProcedure DetailPerforming ClinicianStart: 84-04-3492ST lumbar spine wo conKelechi Galvan DO Work Phone: Start: 88-17-5043Oexcu X-ray of right handNP-C Angélica Hue Work Phone: Start: 53-30-1813Ojsrmuprxdaa cardiovascular examinationKelechi Galvan Other End: 45-36-6766Lphbmxqrgvajl care educationBenathaniel Galvan Other Depression screeningKelechi Galvan Other Ligation of fallopian tubeKelechi Galvan Other Screening for malignant neoplasm of breastKelechi Galvan Other Plan of Treatment DateCare ActivityDetailAuthorStart: 15-86-4227YaqicTrinity Health System East Campustart: 65-07-8300Xitljggm identified in Urine by CultureUrine CultureAdams County Regional Medical Centertart: 08-07-2024 End: 83-56-7292Eiixyua encounter /27/2024 1:30 PM EST Office Visit [facility] [place] [place] [address] Antione Madera, DO [address] [place] [id number] ArrivedNOAVITA HEALTH SYSTEM BUCYRUS [facility] ROUTEComment on above: ArrivedStart: 56-39-1202oeowjmxzvxThvgimfrvwMdaagxxn:S7Wfnub smooth muscle IgG Ab [Units/volume] in SerumMercy Health Clermont HospitalAlpha 1 antitrypsin [Mass/volume] in Serum or PlasmaMercy Health Clermont HospitalCefuroxime free [Mass/volume] in Serum or Wilson HealthComprehensive metabolic 2000 panel - Serum or PlasmaMercy Health Clermont HospitalHepatic function panelMercy Health Clermont HospitalHedewitt general hospital B core antibody measurementKettering Health Springfield virus surface Ab [Presence] in SerumMercy Health Clermont HospitalMG Breast - bilateral ScreeningMercy Health Clermont HospitalPatient EducationLow back pain in adultsSt. [facility] Work Phone: [facility] Payers DatePayer CategoryPayerPolicy [id number] Health InsuranceCARESOURCE MEDICAID Member Subscriber Plan / Payer (Effective 2021-Present) Name: Jing Gray Relation to Subscriber: Self Name: Jing Gray Payer ID: Not on file Group ID: [id number] Type: Not on file Address: [address] [id number] [id number] 2.160.1.839328.3.57[id number] 2.0.1.310303.3.57[id number] 2.0.1.155328.3.57[id number] 2.0.1.730294.3.57[id number] 2.0.1.077126.3.57[id number] 2.0.1.845007.3.57[id number] 2.0.1.330292.3.57[id number] 2.160.1.943483.3.57[id number] 2.0.1.305341.3.57[id number] 2.0.1.349487.3.57[id number] 2.0.1.150984.3.57[id number] 2.160.1.577193.3.57[id number] 2.0.1.172722.3.579.[id number] 2..840.1.152795.19 [id number] 2.16.840.1.8[id number] 2.840.1.379011.3.579.2.531 [id number] 2.840.1.404574.3.579.2.531 Social History DateTypeDetailFacilityUnknown if ever smokedSeth [place] Other Start: 77-36-5970Tou Assigned At [facility] [place] Other Start: 14-89-8218Etb Assigned At [facility] Centertart: 05-16-2018 End: 93-20-7071Rehfgfw smoking status NHISNever smoked tobacco (finding) [facility] Centertart: 01-27-2024 End: 07-09-6682Gfxazvd smoking status NHISEx-smoker (finding)[facility] Medical Centertart: 07-22-2024 End: 59-55-9081VzlClhxje (finding)Mer[facility] Health Clermont HospitalTobacco smoking status NHISTobacco smoking consumption unknownNONC HealthcareStart: 51-53-4956Xjx assigned at birthNot on fileNOMS HealthcareStart: 09-11-1988 End: 42-21-1418Wrfkhjm of tobacco useCurrent smokerNOMS HealthcareStart: 09-11-1988 End: 48-10-9331Ytxxego of tobacco useCigarette SmokerNOMS HealthcareStart: 82-63-9302Ygvvxvugvk smoked current (pack per day) - Reported1.5[facility] Start: 29-37-2875Tsygbyk use and exposureSmokeless tobacco non-userNOMS HealthcareStart: 56-38-5619Sjutcydtw beverage intakeLifetime non-drinker (finding)[facility] Medical Equipment Procedure CodeEquipment CodeEquipment Original TextEquipment IdentifierDates Blood Sugar Diagnostic (Onetouch Ultra Test) stripStart: 04-70-1658Gyslp Sugar Diagnostic (Onetouch Ultra Test) stripStart: 06-10-2024 End: 25-74-0323Bglgl Sugar Diagnostic (Onetouch Ultra Test) stripStart: 86-36-1681Iflfa Sugar Diagnostic (Onetouch Ultra Test) stripStart: 06-10-2024 End: each by Other route if needed.Start: 31-53-4209Yjbzp Sugar Diagnostic (Onetouch Ultra Test) stripStart: 99-68-5331Ciphv Sugar Diagnostic (Onetouch Ultra Test) stripStart: 06-10-2024 End: 74-64-5327Szegm Sugar Diagnostic (Onetouch Ultra Test) stripStart: 14-07-3745Xjvyf Sugar Diagnostic (Onetouch Ultra Test) stripStart: 06-10-2024 End: 10-65-2606Ptqtf Sugar Diagnostic (Onetouch Ultra Test) stripStart: 32-65-9611Cdcsm Sugar Diagnostic (Onetouch Ultra Test) stripStart: 06-10-2024 End: 29-66-5080Zrknd Sugar Diagnostic (Onetouch Ultra Test) stripStart: 38-65-1652Xhahm Sugar Diagnostic (Onetouch Ultra Test) stripStart: 06-10-2024 End: 36-92-7482Ncbyu Sugar Diagnostic (Onetouch Ultra Test) stripStart: 66-42-3487Jgerf Sugar Diagnostic (Onetouch Ultra Test) stripStart: 06-10-2024 End: 50-40-4334Kgryw Sugar Diagnostic (Onetouch Ultra Test) stripStart: 75-23-9252Ztytu Sugar Diagnostic (Onetouch Ultra Test) stripStart: 06-10-2024 End: 06-10-2024 Clinical Notes 05-31-2011 to 04-23-2025 Note Date & ApadYibpJfnjdzcq91-97-9475 Evaluation note* Diagnosis Onset Date Resolution Status Admit Date Low back pain acuteAugust 2024 8:21amLumbar spondylosisacuteAugust 2024 8:21am Major depressionacuteAugust 2024 8:21amObesityacuteAugust 2024 8:21amOSA (obstructive sleep apnea)acuteAugust 2024 8:21amPrimary hypertensionacuteAugust 2024 8:21amType 2 diabetes mellitus with hyperglycemiaacuteAugust 2024 8:21amScreening for colon cancernoneactive April 23, 2025 8:21am [facility] Work Phone: 1(741) 657-179508-13-2025 Evaluation note* Diagnosis Onset Date Resolution Status [...] & vomitingacuteOctober 2024 2:52pmNeutrophilic leukocytosisacuteOctober 2024 2:52pm [facility] Work Phone: 1(145) 432-459804-18-2025 Evaluation note* Diagnosis Onset Date Resolution Status Admit Date Low back pain acuteApril 2024 8:24amLumbar spondylosisacuteApril 2024 8:24amMajor depressionacuteApril 2024 8:24amObesityacuteApril 2024 8:24amOSA (obstructive sleep apnea)acuteApril 2024 8:24amPrimary hypertensionacute Susan 2024 8:24amType 2 diabetes mellitus with hyperglycemiaacuteApril 2024 8:24am [facility] Work Phone: 1(913) 730-940302-16-2025 Evaluation note* Diagnosis Onset Date Resolution Status Admit Date Lumbar radiculopathy noneactiveFebruary 2024 1:38pmLumbar spondylosisacuteApril 2024 8:24am [facility] Work Phone: [phone]) 798-364212-08-2024 Evaluation note* Diagnosis Onset Date Resolution Status Admit Date Otitis media noneactiveDecember 2023 12:19pmInsomniaacuteDecember 2023 8:26amMajor depressionacuteDecember 2023 8:26amObesityacuteDecember 2023 8:26am REBA (obstructive sleep apnea)acuteDecember 2023 8:26amPrimary hypertension acuteDecember 2023 8:26amProlactinomaacuteDecember 2023 8:26am Screening mammogram for breast canceracutecemb2023 8:26amType 2 diabetes mellitus with hyperglycemiaacuteDecember 2023 8:26amWellness examinationacuteDecember 2023 8:26am [facility] Work Phone: 1([phone]) 961-624011-27-2024 History of Present illness Narrative* Antione Madera, [...] minutes and residual AHI of 0.3. Her Anderson Sleepiness scale is a 3. She does have underlying obesity but is trying to work hard with diet exercise and weight loss. Shelost about 70 lb but gained a litte bit back and knows she needs to get back on her regular programas she was doing very well. Plan Compliance data was reviewed with her and she is compliant Anderson Sleepiness scale is 3 Continue use the [...] clinic: 1 year documented in this encounterSt. Louis Children's HospitalZdehuxjmkw66-33-9852 Evaluation note* Diagnosis Onset Date Resolution Status Admit Date Carpal tunnel syndrome of right wrist acuteOctober 2023 11:38amInsomniaacuteOctober 2023 11:38amMajor depressionacuteOctober 2023 11:38amPanic attackacuteOctober 2023 11:38amInsomniaacuteNovember 2023 10:19amMajor depressionacuteNov2023 10:19amPanic attackacuteNov2023 10:19amPrimary hypertensionacuteNov2023 10:19am [facility] Work Phone: [phone]) 586-658902-09-2024 Evaluation note* Encounter Date Diagnosis Assessment Notes Treatment Notes Treatment Clinical Notes Oct, Morbid (severe) obesity due to e xcess calories (ICD-10 - E66.01) [facility] Other 02-06-2024 Evaluation note* Encounter Date Diagnosis [...] index [BMI] 50.0-59.9, adult (ICD-10 - Z68.43) [facility] Other 01-12-2024 Evaluation note* Encounter Date Diagnosis [...] index [BMI] 50.0-59.9, adult (ICD-10 - Z68.43) [facility] Other 12-29-2023 Evaluation note* Encounter Date Diagnosis Assessment Notes Treatment Notes Treatment Clinical Notes Aug, Prolactinoma (ICD-10 - D35.2) MRI < 10mm, prolactin 80 - 2022 [facility] Other 12-16-2023 Evaluation note* Encounter Date Diagnosis Assessment Notes Treatment Notes Treatment Clinical Notes Aug, Hyperprolactinemia (ICD-10 - E22 .1) [facility] Other 12-12-2023 Evaluation note* Encounter Date Diagnosis [...] is also aware of the association between RBEA and morning headaches, daytime somnolence, fatigue and [...] patient on monthly SBE and yearly mammograms. [facility] Other 09-15-2023 Evaluation note* Encounter Date Diagnosis [...] thoracic region, initial encounter (ICD-10 - S29.019A) [facility] Other 08-08-2023 Evaluation note* Encounter Date Diagnosis Assessment Notes Treatment Notes Treatment Clinical Notes Apr, Sharmin-menopausal (ICD-10 - N95.1) Recommend scheduling appt w/ [facility] Maker. Apr,rimary hypertension (ICD-10 - I10)This patient is [...] continue use of the CPAP forOSA treatment. [facility] Other 06-20-2023 Evaluation note* Encounter Date Diagnosis Assessment Notes Treatment Notes Treatment Clinical Notes Feb, Seborrheic dermatitis of scalp ( ICD-10 - L21.9) Keep clean, avoid scratching Stop using Mupirocin Initiate topical steroid ointment Feb,rimary hypertension (ICD-10 - I10)This patient is instructed to consume a healthy, low-fat, low-salt diet. They are also encouraged to continue exercise to achieve/maintain a normal BMI. [facility] Other 05-11-2023 Evaluation note* Encounter Date Diagnosis Assessment Notes Treatment Notes Treatment Clinical Notes January, Type 2 diabetes olive itus with hyperglycemia, without long-term current use of insulin (ICD-10 - E11.65) [facility] Other 05-08-2023 Evaluation note* Encounter Date Diagnosis [...] benefits and to lower A1C < 7% January,rimary hypertension (ICD-10 - I10)This patient is instructed to consume a healthy, low-fat, low-salt diet. They are also encouraged to continue exercise to achieve/maintain a normal BMI. INstructed to monitor at home w/ goal < 135/85 and update office in couple weeks January,OSA (obstructive sleep apnea) (ICD-10 - G47.33)AHI 104 w/ Psat 68%, BiPAP 21/, full facial maskThis patient is aware of [...] or visual defects. January,Hyperprolactinemia (ICD-10 - E22.1) [facility] Other 05-03-2023 Evaluation note* Encounter Date Diagnosis Assessment Notes Treatment Notes Treatment Clinical Notes January, RBEA (obstructive sle ep apnea) (ICD-10 - G47.33) AHI 104 w/ Psat 68%, BiPAP , full facial mask [facility] Other 05-03-2023 Evaluation note* Encounter Date Diagnosis [...] no improvement in 2 to 3 days [facility] Other 04-25-2023 Evaluation note* Encounter Date Diagnosis Assessment Notes Treatment Notes Treatment Clinical Notes Dec, Type 2 diabetes olive itus with hyperglycemia, without long-term current use of insulin (ICD-10 - E11.65) Dec,rimary hypertension (ICD-10 - I10) Dec,Wellness examination (ICD-10 - Z00.00) [facility] Other 03-30-2023 NoteCONSULTATION CONSULTATION DATE: 12/08/2022 TO: [...] this point for her residual pain symptoms.[facility] HospitalIoksapxg54-66-8681 Evaluation note* Encounter Date Diagnosis Assessment Notes Treatment Notes Treatment Clinical Notes Nov, REBA (obstructive sleep apnea) (I CD-10 - G47.33) AHI 101 w/ Psat 79% [facility] Other 03-15-2023 Evaluation note* Encounter Date Diagnosis Assessment Notes Treatment Notes Treatment Clinical Notes Nov, REBA (obstructive sleep apnea) (I CD-10 - G47.33) AHI 104 w/ Psat 68% [facility] Other 02-23-2023 NotePAIN MANAGEMENT CONSULTATION CONSULTATION DATE: [...] four weeks' time or sooner if needed.[facility] 11-03-2022 NotePAIN MANAGEMENT CONSULTATION CONSULTATION DATE: [...] on his response to change in medication.[facility] 10-18-2022 Evaluation note* Encounter Date Diagnosis [...] apnea (ICD-10 - R29.818)Referral for sleep study [facility] Other 07-28-2022 NoteCONSULTATION CONSULTATION DATE: 04/07/2022 HISTORY [...] Patient states understanding and all questions answered.[facility] HospitalBjgljrtc40-92-0415 History general Narrative - Reported* Type Description Date Medical History hypertension Medical Historyback painMedical Historydegenerative disc diseaseMedical History ProlactinomaMedical HistoryasthmaSurgical HistoryC eysvkpf2205/31/2011Surgical CuczrbmTRZ75/23/2009Surgical Historyhysterectomy laps ucffhtmt30-0314Ezfdxmna Historyright foot sx (planter)Hospitalization Historysee aboveHospitalization Historyblood transfusion09/2014 [facility] Other Chief complaint+Reason for visit Narrative* Chief Complaint COVID+ Amb Documentation 3 month follow upReason for VisitCOVID-19 Lumbar spondylosis REBA (obstructive sleep apnea) Primary hypertension Type 2 diabetes mellitus with hyperglycemia [facility] Work Phone: Evaluation noteNo InformationNortMain Line Health/[facility] Other Evaluation noteNo assessment information available [facility] Work Phone: Evaluation note* Diagnosis Onset Date Resolution Status Type 2 diabetes mellitus with hyperglyce wiliam acuteCOVID-19noneactive [facility] Work Phone: Evaluation note* Diagnosis Onset Date Resolution Status COVID-19 noneactiveLumbar spondylosisacuteOSA (obstructive sleep apnea)acutePrimary hypertensionacuteType 2 diabetes mellitus with hyperglycemiaacute [facility] Work Phone: Evaluation note* Diagnosis Onset Date Resolution Status Obesity acutePrimary hypertensionacuteType 2 diabetes mellitus with hyperglycemiaacute [facility] Work Phone: Evaluation note* Diagnosis Onset Date Resolution Status Right otitis media with effusion acuteObesityacutePrimary hypertensionacuteType 2 diabetes mellitus with hyperglycemiaacute [facility] Work Phone: Evaluation note* Diagnosis Onset Date Resolution Status Obesity acuteOSA (obstructive sleep apnea)acutePalpitationacutePrimary hypertensionacute Type 2 diabetes mellitus with hyperglycemiaacute [facility] Work Phone: Evaluation note* Diagnosis REBA (obstructive [...] for colon cancernoneactive April 23, 2025 8:21am [facility] Work Phone: History general Narrative - Reported* Type Description Date Medical History hypertension Medical Historyback painMedical Historydegenerative disc diseaseMedical History ProlactinomaMedical HistoryasthmaMedical HistoryOSA (obstructive sleep apnea) Surgical HistoryC sjuhebh4205/31/2011Surgical QxqnfxeWHL59/23/2009Surgical History hysterectomy laps iivhxaod69-4820Rgyrfbdw Historyright foot sx (planter) Hospitalization Historysee aboveHospitalization Historyblood transfusion09/2014 [facility] Other Reason for referral (narrative)No reason for referral information availableSt. [facility] Work Phone: Summary Purpose Family History No [...] 2024 8:26am Screening mammogram [facility] breast [facility] 8:26am Type 2 diabetes mellitus with hyperglyce [...] with hyperglyce wiliam December 27, 2024 8:24am Chief Complaint Admit [...] for colon cancer April 23, 2025 8:21am Chief Complaint Admit Date 4 month f/u-HIGH [...] :52pm Neutrophilic leukocytosis July 09, 2025 2:52pm Additional Source Comments REASON FOR VISIT (unrecogniz ed section and content) ReasonCommentsSleep Apnea INFORMATION SOURCE (unrecogn ized section and content) DATE CREATED AUTHOR 01/11/2023 [facility] DATE CREATED AUTHOR AUTHOR'S ORGANIZ ATION 08/10/2024 [facility] DATE CREATED AUTHOR AUTHOR'S ORGANIZ ATION 04/25/2025 [facility] DATE CREATED AUTHOR AUTHOR'S ORGANIZ ATION 07/11/2025 [facility] Care Teams (unrecognized sec tion and content) Team Status: Active Member Role Status Dates Kelechi Galvan DO Primary Care Provider Active Team Status: Inactive Member Role Status Dates Kelechi Galvan DO Primary Care Provider Active Start: March 12, 2025 End: March 12delia Manley NP-CAttending ProviderActiveStart: March 12, 2025 End: March 12, [...] 2024 End: July 22, 2024Team MemberRelationshipSpecialtyStart DateEnd Date Kelechi Galvan MD [address] [place] [id number] [facility]05/25/23Team MemberRelationshipSpecialtyStart Date End Date Kelechi Galvan MD [address] [place] [id number] [facility]/25/23 Team Status: Inactive Member [...] Status: Active Member Role Status Dates Kelechi Glavan DO Primary Care Provider Active Start: December 17, 2024 Tyler Bruce ProviderActiveStart: December 17, 2024 Team Status: Inactive Member Role Status Dates Kelechi Galvan DO Primary Care Provider Active Start: December 27, 2024 End: December 27Tyler Elias ProviderActiveStart: December 27, 2024 End: December 27, 2024 Team Status: Active Member Role/Relationship Status Dates Kelechi Galvan DO Primary Care Provider Active Team Status: Inactive Member Role/Relationship Status Dates Kelechi Galvan DO Primary Care Provider Active Start: April 23, 2025 End: April 23Crow Eliasbrad ProviderActiveStart: April 23, 2025 End: April 23, 2025 Team Status: Active Member Role/Relationship Status Dates Kelechi Marc Primary Care Provider Active Start: July 08, 2025 Nori Albert ProviderActiveStart: July 08, 2025 Team Status: Active Member Role/Relationship Status Dates Emiliana Gilbert PA-C Attending Provider Active Start: July 08, 2025 Team Status: Inactive Member Role/Relationship Status Dates Kelechi Galvan Primary Care Provider Active Start: July 09, 2025 End: July 09presley Galvan DOElbabrad ProviderActiveStart: July 09, 2025 End: July 09, 2025 Team Status: Inactive Member Role/Relationship Status Dates Emiliana Gilbert PA-C Attending Provider Active Start: July 08, 2025 End: July 08, 2025 Goals (unrecognized section and content) Goals [...] BE BASED ON THE PRIMARY CLINICAL RECORDS. [facility] provides no warranty or guarantee of the accuracy or completeness of information in this document.
[2025-07-11 08:25] LABS: Hematocrit 44.2 % (36.0-48.0); Hemoglobin 14.4 g/dL (12.0-16.0); Immature Granulocytes Abs Auto 0.03 10^3/uL (0.00-0.03); Immature Granulocytes Pct Auto 0.3 % (0.0-0.5); Lymphocytes Absolute Auto 1.8 10^3/uL (1.2-3.8); Mean Corpuscular HGB Conc 32.6 g/dL (29.9-35.2); Mean Corpuscular Hemoglobin 28.0 pg (26.7-34.0); Mean Corpuscular Volume 85.8 fL (81.0-99.0); Platelet Count 209 10^3/uL (150-450); Red Blood Count 5.15 10^6/uL (4.20-5.40); White Blood Count 9.0 10^3/uL (4.0-11.0)
[2025-07-11 08:43] LABS: Alanine Aminotransferase 27 U/L (14-59); Albumin Globulin Ratio 1.2; Albumin Level 3.9 g/dL (3.4-5.0); Alkaline Phosphatase 98 U/L (46-116); Aspartate Amino Transferase 15 U/L (15-37); Globulin 3.2 g/dL; Total Protein 7.1 g/dL (6.4-8.2)
[2025-07-11 08:45] LABS: INR 1.00; Prothrombin Time 10.6 sec (9.0-11.6)
[2025-07-11 09:31] LABS: Ferritin 79.0 ng/mL (8.0-252.0)
== END 2025-07-11 07:47 | disposition home or self-care (01) ==
LOC: LAB 07:49
PROVIDERS: PCP Internal Medicine; Visit Provider Internal Medicine
DX: K76.0 Fatty (change of) liver, not elsewhere classified (principal); K74.60 Unspecified cirrhosis of liver; D72.829 Elevated white blood cell count, unspecified
CPT/HCPCS: 36415; 80076; 82103; 82728; 83516; 85025; 85610; 86038; 86317; 86704; 86803; 87340

== ENCOUNTER 2025-08-29 07:18 | Outpatient (OUT) | payer OTHER, SELFPAY ==
--- OUTSIDE RECORDS SUMMARY | 2024-03-05 10:30 | XMS_ITS ---
Author Organization [facility] in [place] Address [address] [place] [address] Care Team Providers Care Cost Recovery Technician Name Role Phone Kelechi Galvan DO Primary Care Provider Unavaila Austyn Shipley Unavailable [phone] REASON FOR VISIT 3 week f/u Encounters Encounter Location Date Provider Diagnosis [facility] (PODIATRY) [address] [place] [address] [place] [address] 03/05/2024 Austyn Ott Plan Of Treatment No Information Progress Notes * Jing GRAYDOB:1975 ( 49 yo F)Acc No.[id number]:03/05/2024 UNLOCKED PROGRESS NOTE Follow Up Patient: Jing PAT :?Austyn Ott DPM, MSDOB:1975???Age: 48 Y???Sex:FemaleDate:4Phone:[phone]:[address] [id number]:Kelechi Galvan DO Subjective: * Chief Complaints: * 1 . 3 week f/u. * Medical History: Objective: * Vitals: Assessment: Plan: * Treatment: * * Electronic signature of Austyn Ott DPM on 08/29/2025 at 07:24 AM ESTSign off status: PendingVisit Status:?CANC (Cancelled) * Provider: La Ott DPM, MS Date: 0 03/05/2024 Generated for Printing/Faxing/eTransmitting on:?08/29/2025 07:24 AM EST
--- OUTSIDE RECORDS SUMMARY | 2025-08-28 04:10 | XMS_ITS | Continuity of Care Document ---
Author Organization [facility] Address [address] [place] [address] Phone Care Team Providers Care Shopfitter Name Role Phone Kelechi Galvan DO Primary Care Provider Emiliana Gilbert PA-C Attending Provider Kelechi Galvan DO Attending Provider Care Teams Patient Care Team Team Status: Active Member Role/Relationship Status Dates Kelechi Galvan DO Primary Care Provider Active Visit Care Team Team Status: Active Member [...] July 09, 2025 End: July 09, 2025 Patient Care Team Team Status: Active Member Role/Relationship Status Dates Kelechi Galvan DO Primary Care Provider Active Start: July 11, 2025 Tyler Bruce ProviderActiveStart: July 11, 2025 Patient Care Team Team Status: Inactive Member Role/Relationship Status Dates Kelechi Galvan DO Primary Care Provider Active Start: August 28, 2025 End: August 28enjamin Ball , DOAttending ProviderActiveStart: August 28, 2025 End: August 28, 2025 Chief Complaint and Reason for Visit Chief Complaint Admit Date Unknown July 08, 2025 3 :20pm ER f/u - HIGH RISK July 09, 2025 2 :52pm wellness August 28, 2025 8:20am Reason for Visit Admit Date Abdominal pain July 09, 2025 2 :52pm Acute cystitis July 09, 2025 2 :52pm Diarrhea July 09, 2025 2 :52pm Metabolic dysfunction-associ ated steatotic liver disease (MASLD) July 09, 2025 2:52pm Nausea & vomiting July 09, 2025 2 :52pm Neutrophilic leukocytosis July 09, 2025 2:52pm Lumbar spondylosis August 28, 2025 8:20am Major depression August 28, 2025 8:20am Metabolic dysfunction-associ ated steatotic liver disease (MASLD) August 28, 2025 8:20am Obesity August 28, 2025 8:20am REBA (obstructive sleep apnea) August 112024 8:20am Primary hypertension August 28, 2025 8:20am Prolactinoma August 28, 2025 8:20am Screening mammogram for breast cancer [facility] 2024 8:20am Type 2 diabetes mellitus with hyperglyce wiliam August 28, 2025 8:20am Wellness examination August 28, 2025 8:20am Allergies, Adverse Reactions, Alerts Allergen Type Severity Reaction Last Updated Verified Status Comments doxycycline Allergy Unknown Unknown Reaction Decembe r 2024 8:29am Yes Active penicillin G benzathineAllergyUnknownUnknown ReactionDecember 2024 8:29am YesActiveOnset Date: 12/21/2006 Social History Smoking Status Status Start Date End Date Date of Observa tion Ex-smoker (finding) January 27, 2024 1:17pm Observation Status Observation Response Date of Response Legal Sex Female (finding) [facility] Family History Relationship Condition Age at Onset Recorded Date/T milka father Unknown Malignant neoplasmUnknownHypertensionUnknownHeart diseaseUnknownmotherMalignant neoplasmUnknownHistory of malignant neoplasm of skinUnknown Problems Active Problems Problem Diagnosis/Recorded Date Onset Date Status Yehuda davila Carpal tunnel syndrome of ri ght wrist June 21, 2024 11:21am Unknown Active Acute cystitisOctober 2024 8:44pmUnknownActiveMajor depressionOctober 2023 11:22amUnknownActiveMetabolic dysfunction-associated steatotic liver disease (MASLD)July 09, 2025 7:48pmUnknownActiveInsomniaOctober 2023 11:22amUnknownActiveOSA (obstructive sleep apnea)October 27, 2023 10:20am UnknownActiveScreening for colon cancerAugust 2024 7:59amUnknownActiveType 2 diabetes mellitus with hyperglycemiaMay 2023 6:32amUnknownActiveScreening mammogram for breast cancerAugust 21, 2024 10:17pmUnknownActiveRenal cyst, acquired, rightOctober 2024 6:55pmUnknownActiveUS: 3.6cm cyst - T: renal cyst - 06/2025Low back painApril 2024 8:06amUnknownActiveSubclinical hypothyroidismApril 2024 8:23pmUnknownActiveNeutrophilic leukocytosis July 09, 2025 8:44pmUnknownActiveFeverDeceer 2024 9:06amUnknown ActivePalpitationAugust 2023 8:02amUnknownActiveProlactinomaFebruary 2023 10:20amUnknownActiveDiarrheaOctober 2024 8:45pmUnknownActiveWellness examinationDecember 2023 10:17pmUnknownActiveCirrhosis of liverOctober 2024 6:37pmUnknownActiveCT: cyst right kidney, cirrhotic liver - 06/2025 Primary hypertensionFebruary 2023 10:20amUnknownActivePanic attackOctober 2023 11:22amUnknownActiveNausea & vomitingOctober 2024 8:45pmUnknown ActiveAbdominal painOctober 2024 8:45pmUnknownActiveLumbar spondylosisMay 2023 6:35amUnknownActiveAdenomyomatosis of gallbladderOctober 2024 6:57pmUnknownActiveCT/US - 06/2025ObesityMay 2023 7:56amUnknownActive Medications Medication Status Dose Units Route Directions Qty Days Refills S tart Date Stop Date End Date Reason(s) Instructions Adherence Phentermine 37.5 mg tablet Discontinued 37.5 MG PO Daily 30 30 0 Mar ch 2023 11:43am December 20, 2023 5:11pmMorbid or severe obesity due to excess calories Morbid (severe) obesity due to excess caloriesbefore breakfastPhentermine 37.5 mg yeggjtMuhruzwyvqin52.0WGFBPdxmv15620Jpayh 2023 5:10pmMay 2023 4:54pmMorbid or severe obesity due to excess calories Morbid (severe) obesity due to excess caloriesbefore breakfastPhentermine 37.5 mg ijzczbOyyqzoltvkpz19.0ZBVEExtvz48382Hsw 2023 4:54pmJune 2023 5:10pmMorbid or severe obesity due to excess calories Morbid (severe) obesity due to excess caloriesbefore breakfastPhentermine 37.5 mg dkhwlrIhahvopsleat11.9SMEUPvykz77908Vyvc 2023 5:10pmJune 2023 3:58pmMorbid or severe obesity due to excess calories Morbid (severe) obesity due to excess caloriesbefore breakfastPhentermine 37.5 mg lmpiqiVqnmugoegkca16.0DTOOIvdiv48104Dtum 2023 3:58pmJuly 2023 1:20pmMorbid or severe obesity due to excess calories Morbid (severe) obesity due to excess caloriesbefore breakfastEscitalopram Oxalate 10 mg dbehxfLmspewvankth07ZUCTLpwqc470Vbkf 2023 8:59amOctober 2023 11:13amPhentermine 37.5 mg bzkkoaFrdvdyblxvmj03.5JXKXPlofp05507Nujo 2023 1:20pmJuly 2023 1:21pmMorbid or severe obesity due to excess calories Morbid (severe) obesity due to excess caloriesbefore breakfastPhentermine 37.5 mg hyqgkvTnztpsgstpsu98.1UXNLZflfl51355Ogcq 2023 1:21pmAugust 2023 12:35pmMorbid or severe obesity due to excess calories Morbid (severe) obesity due to excess caloriesbefore breakfastMetformin 1,000 mg tabletDiscontinued0.ROUTE.EXMLBVA3274Xdcy 2023 7:45amAugust 2023 7:33amTAKE 1 TABLET BY MOUTH TWICE A DAY FOR 30 DAYSLisinopril 5 mg tablet Discontinued0.ROUTE.FQPAOQD048Fmto 2023 8:59amJuly 2024 7:10amTAKE 1 TABLET BY MOUTH EVERY DAYAtenolol 50 mg tabletDiscontinued0.ROUTE.GEWNEZF911Ftez 2023 8:59amJuly 2024 7:10amTAKE 1 TABLET BY MOUTH EVERY DAY Phentermine 37.5 mg lzykfeTkmywpoqsqtq92.4ASUYRncic32350[place] 2023 12:35pmSeptember 2023 1:05pmMorbid or severe obesity due to excess calories Morbid (severe) obesity due to excess caloriesp/u 04/24, start 04/26Phentermine 37.5 mg rfnuyiPyqhadagrhpi07.2QVKFCqhkb87937Uvwtywpaa 2023 1:05pmOctober 2023 11:11amMorbid or severe obesity due to excess calories Morbid (severe) obesity due to excess caloriesstart 05/28Blood Sugar Diagnostic (Onetouch Ultra Test) stripDiscontinued0.Kakyo271Qjpcwydbi 2023 11:00pm June 10, 2024 11:36amto test once dailyBlood Sugar Diagnostic (Onetouch Ultra Test) stripActive0.ROUTE.OSWUVMH6852Xewfzfdxl 2023 11:36amUSE 1 STRIP TO CHECK HOME BLOOD SUGAR ONCE DAILYCetirizine 10 mg tabletDiscontinued0 .ROUTE.FDAZUQV883Yihzpsu 2023 11:17amJune 2024 4:20pmTAKE 1 TABLET BY MOUTH EVERY DAYBupropion Hcl 150 mg tablet extended release 24 hrDiscontinued 150MGPOEvery osiifwm14915Sbbqbhn 2023 11:00pmOctgate[facility] 2023 12:19pm Hydroxyzine Hcl 50 mg svdqplAjowuoqpmpor11BLXADqhca at bedtime as needed for xgnxmgr357Yinqrfs 2023 11:42amFebruary 2024 1:49pmBupropion Hcl 300 mg tablet extended release 24 cdUlzzcwdevcee779ZMIBUgenc flztzpd99316Etucfhn 2023 12:19pmNovphoenix memorial hospital 2023 12:53pmEscitalopram Oxalate 10 mg tablet Pcpvoppbgcof94FJSBXbaky43161Puyxycl 2023 12:19pm[facility] 20[facility] 8:45pm Bupropion Hcl 300 mg tablet extended release 24 smFpwfegkjdhuu262LXLOGwsqa vfgnmdx66555Xoliwexm 2023 12:52pmNovphoenix memorial hospital 2023 9:06pmEscitalopram Oxalate 20 mg tabletDiscontinued0.ROUTE.[address] 2023 8:45pmApril 2024 7:56amTAKE 1 TABLET BY MOUTH EVERY DAYBupropion Hcl 300 mg tablet extended release [address] 2023 9:05pm January 30, 2025 6:36amTAKE 1 TABLET BY MOUTH EVERY MORNINGLevofloxacin 750 mg wcqffaSauhzspeaspz375YZABTubfo583Hkpnsbbz 2023 12:00amFebruary 2024 1:45pmFurosemide 20 mg xymlckCmryef76KQRTGffwc94945Jzdhf 2024 9:29pm Complies with drug therapyBupropion Hcl 300 mg tablet extended release 24 hr Discontinued0.ROUTE.[address] 2024 6:36amNoveer 2024 6:05pm TAKE 1 TABLET BY MOUTH EVERY DAY IN THE MORNINGPotassium Chloride (Klor-Con 10) 10 mEq tablet extended pwqinjuEwxety87FSOCJHikkb42709Ztso 2024 11:00pm Complies with drug therapyCetirizine 10 mg tuuoxqJfoghmccjycg06XMLFGuoiw90702 March 05, 2025 4:19pmAugust 2024 7:29amAtenolol 50 mg tabletActive0.ROUTE .MAHZSWE003Elrf2024 7:10amTAKE 1 TABLET BY MOUTH EVERY DAYComplies with drug therapyLisinopril 5 mg tabletActive0.ROUTE.WNOQHUV586Htpl2024 7:10am TAKE 1 TABLET BY MOUTH EVERY DAYComplies with drug therapyEscitalopram Oxalate 10 mg hepyggUndies32RZGSPygzp85923Djodhi 22nd, 2025 2:44pmComplies with drug therapyBupropion Hcl 300 mg tablet extended release 24 mhWxakdz336XAQCTxtst53528 July 27, 2025 6:05pmComplies with drug therapyNirmatrelvir-Ritonavir (Paxlovid) 300 mg (150 mg x 2)-100 mg tablets,dose seotIshsbxizwnjw4CXkhk package fiqxfzynkp0709Abboufce 16th, 2024 12:00amApril 2023 5:10pmtake TWO 150 mg tablets of nirmatrelvir with ONE 100 mg tablet of ritonavir twice daily for 5 days orally per package directions;Escitalopram Oxalate 10 mg tablet Nognceptogcw36HQHAFpkmsSirdpneg 2023 12:00amJuly 2023 8:59am Dulaglutide (Trulicity) 4.5 mg/0.5 mL pen injectorDiscontinued4.5MGSUBCUTevery br2023 12:00amFebruary 2024 1:49pmDapagliflozin Propanediol (Farxiga) 5 mg yzervqXyacrayfrnnf5JBTTJuusqSvfnehjl 2023 12:00amJune 2023 12:07pmAtenolol 50 mg pwruidFzsfacaavysq47LIUKFdvfu October 27, 2023 12:00amJuly 2023 8:59amFurosemide 20 mg tablet Oofhvkmshbxh89MMCBQyozkZgixncvh 16th, 2024 12:00amMarch 2024 9:29pm Lisinopril 5 mg ptzvpfVzkjicrrywqa6NCRRToerfSjoupesi 2023 12:00amJuly 2023 8:59amBaclofen 10 mg xvfhbwRhszimngrszv87CYJYLepbr dailyFebruary 2023 12:00amMay 2023 12:15pmPhentermine 37.5 mg tabletDiscontinued 37.5MGPODailyFebruary 2023 12:00amMarch 2023 11:45ambefore breakfast Tizanidine 4 mg nzuwrlBnvcjjhijyqr6WDBPUuzsw at bedtimeFebruary 2023 12:00amDecember 2023 8:57amCetirizine 10 mg vydayfJsdxmyfspquw15YWHPTubcd October 27, 2023 12:00amOctober 2023 11:17amTriamcinolone Acetonide 0.5 % vqgixMnwzacbeldgf4BVEQCXCFJXXDOMzlmc dailyFebruary 2023 12:00amMay 2023 12:16pmMetformin 1,000 mg skpotoXtobdcwmzewr3952PPXKIefoy dailyFebruary 2023 12:00amJuly 2023 7:45amPotassium 99 mg tabletDiscontinuedMGPO DailyFebruary 2023 12:00amJune 2024 4:16pmCefdinir 300 mg capsule Jgqpmemjgbxf255QIRTIqgpg 12 2023 11:00pmAugust 2023 7:34amFluticasone Propionate (Flonase Allergy Relief) 50 mcg/actuation spray,aocatbhuauNntuvaifygrk6CSFAELBWNHTCUWXUblkl07930Lgr 17th, 2024 11:00pm October 27, 2024 1:45pmadminister 2 spray into each nostrilCefdinir 300 mg iegtoufCuyvtjnjmddz411WGAXUuhyj dailycember 2023 12:00amDecember 2023 2:19pmTizanidine 4 mg mwctzwSfojxwgwagbv6QVPMJavcs at vhhbxjw14471Loofeaqg 2023 8:56amFebruary 2024 1:50pmCefdinir 300 mg capsuleDiscontinued 300MGPOTwice vobxn93261Trivmxrk2023 12:00amDece2023 2:19pm Fluticasone Propionate (Flonase Allergy Relief) 50 mcg/actuation spray,itqvlbaxppQnymrupylzzh9NIQGYRPHDZKMMHLUafol36178Qmfhckdh 8th, 2024 12:00am December 27, 2024 7:39amadminister into each nostrilTizanidine 4 mg tabletActive8 MGPODaily at bedtimeFebruary 2024 1:50pmComplies with drug therapy Metformin 1,000 mg hbdbmsXhafap8634NTMZXcicxHoyxiu 2024 11:00pmComplies with drug therapySemaglutide (Ozempic) 0.25 mg or 0.5 mg (2 mg/3 mL) pen injectorActive0.5MGSUBCUTevery uugz3323Jofvpd 2024 11:00pmfor 4 weeks Complies with drug therapyEscitalopram Oxalate 20 mg mmfwxgJfndtvwtfjyi16STVU Hixls58997Lrofywq 11th, 2024 11:11amOctober 2023 12:19pmHydroxyzine Hcl 25 mg kgeswwKuvcrlquyrms95SPNDXkixi times daily as needed for ntuqtwr26426Dbfpffo 2023 11:00pmOctober 2023 11:23amHydroxyzine Hcl 25 mg tablet Jyhdszfpdxnp29DIFQMyfiw times daily as needed for sqirdrd3855Nqoxlgh 10th, 2024 11:00pmOctober 2023 11:43amBupropion Hcl 450 mg tablet extended release 24 vySgdwyccmapfj821FNOFOnkci adhyskx57605Ngukf 2024 11:00pmAugust 2024 7:29amEscitalopram Oxalate 10 mg ctvyyvVqfpycoepjlk49MWSHBuers99072Jcyqb 2024 7:55amAugust 2024 2:45pmPrednisone 20 mg rynwfqLoaszlviseqr27DOXEUg Ufgnsfte021Ruoij 2024 11:00pmAugust 2024 7:29am1 tab tid w/ food x 3 days, then bid w/ food x 3 days, then qd w/ food x 3 daysTramadol 50 mg tablet Rzogonnqtifa24KHOLXlpfh times daily as needed for uktx6952Cpklp 2024 11:00pmAugust 2024 7:29amSpondylosis of lumbar spine Low back pain Spondylosis without myelopathy or radiculopathy, lumbar region Low back pain, unspecifiedOndansetron Hcl 4 mg hshtddFoctvn2SVAPUzrsb 8 hours July 08, 2025 11:00pmComplies with drug therapyFamotidine 20 mg tablet Cicwmg76KLEFIquahBxfrrlq 28th, 2025 11:00pmComplies with drug therapyCefdinir 300 mg juwwhfkIbgmpmwnvcbk687BYXIIgpow dailyJuly 08, 2025 11:00pmDecember 2024 8:34am Procedures Procedure Date Performed Status Urine Culture July 08, 2025 completed Relevant Diagnostic Tests and/or Laboratory Data Laboratory Results Test Collection Date/Time Result Date/Time Result Interpretation Reference Range Result Comment Performing Site Troponin I High Sensitivi ty July 08, 2025 1:05pm July 08, 2025 1:05pm <4.0 pg/mL Below low normal 4.0-51.3 CUT-OFF POINTS HAVE BEEN ESTABLISHED BASED ON THE FOURTHIVER RALF DEFINITION OF MYOCARDIAL INFARCTION. THE UPPERREFEREN CE LIMIT (URL) OF TROPONIN, DEFINED THE 99THPERCENTI LE OF cTnI DISTRIBUTION IN A REFERENCE POPULATION,H BEEN CONFIRMED THE DECISION THRESHOLD FOR MIDIAGNOSIS. 99TH PERCENTILE = 51.4 PG/MLNOTE: HIGH-SENSITI VITY TROPONIN ASSAY IS NOT INTENDED TO BEUSED IN ISOLATION BUT SHOULD BE INTERPRETED IN CONJUNCTIONW ITH OTHER DIAGNOSTIC AND CLINICAL INFORMATION. Absolute Basophils (Manual)July 08, 2025 1:05pmOct2024 1:05pm 0.00 10 3/uL0.00-0.10HematocritOct2024 1:05pm52.8 %Above high normal 36.0-48.0LipaseJuly 08, 2025 1:05pmOct2024 1:05pm26.0 U/L 16.0-77.0Anion GapJuly 08, 2025 1:05pmOct2024 1:05pm16.1Urine Culture ReflexedJuly 08, 2025 2:20pmOct5 2:20pmYES-FRMCUrine Microscopic ReviewOctober 2024 2:20pmYESAnti-Nuclear Antibody Profile July 11, 2025 7:10amOctober 2024 7:10amNegativeNegativePerformed at: [address] [id number] Director: Joshua Jordan PhD, Phone: [phone] B Surface AntigenOctober 2024 7:10amNegativeNegativeOctober 2024 7:10amNegativeNegativeOctober 2024 7:10amNegativeNegativeAnti-Smooth Muscle AntibodyOctober 2024 7:10am 11 Units0-19Negative 0 - 19 Weak positive 20 - 30 Moderate to strong positive >30 Actin Antibodies are foundin 52-85% of patients with autoimmune hepatitis or chronic active hepatitis and in 22% of patients with primary biliary cirrhosis.Performed at: [facility] [id number]Lab Director: Joshua Jordan PhD, Phone: [phone] B Core Total AntibodyOct2024 7:10amNegativeNegativePerformed at: [facility] [id number] Director: Joshua Jordan PhD, Phone: [phone] 2024 7:10amNegativeNegativePerformed at: [facility] [id number] Director: Joshua Jordan PhD, Phone: [phone] 2024 7:10amNegativeNegative Performed at: [facility] [id number] Director: Joshua Jordan PhD, Phone: [phone] B Surface Antibody July 11, 2025 7:10am<3.5 mIU/mLAbnormal (applies to non-numeric results) Immunity>10Status of Immunity Anti-HBs Level Inconsistent with Immunity 0.0 -10.0Consistent with Immunity >10.0Octgate[facility] 2024 7:10am<3.5 mIU/mLAbnormal (applies to non-numeric results)Immunity>10Status of Immunity Anti-HBs Level Inconsistent with Immunity 0.0 - 10.0Consistent with Immunity >10.0Hepatitis C AntibodyOct2024 7:10amOct2024 7:10amNon ReactiveNon ReactiveFerritinOct2024 7:10amOct2024 7:10am 79.0 ng/mL8.0-252.0Prothromb Time International RatioOct2024 7:10am July 11, 2025 7:10am1.00DESIRED INR:2.0-3.0 CONDITIONS NOT LISTED BELOW2.5- 3.5 FOR PROSTHETIC HEART VALVE REPLACEMENT2.5-3.5 RECURRENT THROMBOSIS Albumin/Globulin RatioOct2024 7:10amOct2024 7:10am1.2 Basophils # (Auto)July 11, 2025 7:10amOct2024 7:10am0.0 10 3/uL 0.0-0.1Basophils %July 08, 2025 1:05pmJuly 08, 2025 1:05pm0.0 %Below low normal0.2-2.0HemoglobinOct2024 1:05pm17.5 g/dLAbove high normal 12.0-16.0Albumin/Globulin RatioOct2024 1:05pmJuly 08, 2025 1:05pm1.3Urine Other CastsOct2024 2:20pmOct2024 2:20pmSEEN #/LPFAbnormal (applies to non-numeric results)NONE SEENUrine BilirubinJuly 08, 2025 2:20pmMODERATEAbnormal (applies to non-numeric results)NEGATIVE Hepatitis C InterpretationOct2024 7:10amOctober 2024 7:10am Comment.Not infected with HCV unless early or acute infection issuspected (which may be delayed in an immunocompromisedindividual), or other evidence exists to indicate HCVinfection.Performed at: [facility] [id number] Director: Joshua Jordan PhD, Phone: [phone] TimeOctober 2024 7:10amOct2024 7:10am10.6 sec9.0-11.6Albumin July 11, 2025 7:10amOctober 2024 7:10am3.9 g/dL3.4-5.0Basophils (%) (Auto)July 11, 2025 7:10amOctober 2024 7:10am0.4 %0.2-2.0Eosinophils # (Manual)July 08, 2025 1:05pmOctober 2024 1:05pm0.24 10 3/uL 0.00-0.70Mean Corpuscular HemoglobinOctober 2024 1:05pm28.1 pg26.7-34.0 AlbuminOctober 2024 1:05pmOctober 2024 1:05pm4.8 g/dL3.4-5.0Urine Other CrystalsOct2024 2:20pmOctober 2024 2:20pmSeen #/HPF Abnormal (applies to non-numeric results)None SeenUrine Occult BloodOct2024 2:20pmNEGATIVENEGATIVEAlkaline PhosphataseOct2024 7:10am July 11, 2025 7:10am98 U/M29-747Yuztxbqklhn # (Auto)July 11, 2025 7:10amOctober 2024 7:10am0.7 10 3/uL0.0-0.7Eosinophils %July 08, 2025 1:05pmOctober 2024 1:05pm1.0 %0.9-7.0Mean Corpuscular Hemoglobin Concent July 08, 2025 1:05pm33.1 g/dL29.9-35.2Alkaline PhosphataseOct2024 1:05pmOctober 2024 1:05pm98 U/J54-449Cnjzu Amorphous SedimentOctober 2024 2:20pmOctober 2024 2:20pmFEWUrine AppearanceOct2024 2:20pmSL CLOUDYCLEARAlanine Aminotransferase (ALT/SGPT)July 11, 2025 7:10am July 11, 2025 7:10am27 U/U84-51Hjbwgwgmdlf (%) (Auto)July 11, 2025 7:10amOctober 2024 7:10am7.5 %Above high normal0.9-7.0Lymphocytes # (Manual)July 08, 2025 1:05pmOct2024 1:05pm1.48 10 3/uL1.20-3.80 Mean Corpuscular VolumeOct2024 1:05pm84.8 fL81.0-99.0Alanine Aminotransferase (ALT/SGPT)July 08, 2025 1:05pmOctober 2024 1:05pm33 U/V65-00Xuqwq BacteriaOct2024 2:20pmOctober 2024 2:20pmLARGE #/HPFAbnormal (applies to non-numeric results)NONE SEENUrine ColorJuly 08, 2025 2:20pmDK. YELLOWYELLOWAspartate Amino Transf (AST/SGOT)July 11, 2025 7:10amOctober 2024 7:10am15 U/K23-06YesmgshlngFnsanxn 2024 7:10am July 11, 2025 7:10am44.2 %36.0-48.0Lymphocytes %July 08, 2025 1:05pm July 08, 2025 1:05pm6.0 %Below low uokpsa35.5-60.0Mean Platelet Volume July 08, 2025 1:05pm10.1 fL9.5-13.5Aspartate Amino Transf (AST/SGOT)July 08, 2025 1:05pmOct2024 1:05pm20 U/S57-98Qznhn Calcium Oxalate CrystalsOct2024 2:20pmOctober 2024 2:20pmFEWUrine Glucose (UA) July 08, 2025 2:85be017 mg/dLAbnormal (applies to non-numeric results) NEGATIVEDirect BilirubinOct2024 7:10amOctober 2024 7:10am0.1 mg/dL0.0-0.2HemoglobinOct2024 7:10amOct2024 7:10am14.4 g/dL12.0-16.0Monocytes # (Manual)July 08, 2025 1:05pmOctober 2024 1:05pm0.99 10 3/uLAbove high normal0.30-0.80Platelet CountOct2024 1:92nq265 10 3/uF919-609LZY/Creatinine RatioOctober 2024 1:05pmJuly 08, 2025 1:05pm9.4Urine Hyaline CastsOct2024 2:20pmOct2024 2:20pmMODERATEUrine KetonesOctober 2024 2:20pm15 mg/dLAbnormal (applies to non-numeric results)NEGATIVEGlobulinOct2024 7:10amOct2024 7:10am3.2 g/dLImmature Granulocyte # (Auto)July 11, 2025 7:10am July 11, 2025 7:10am0.03 10 3/uL0.00-0.03Monocytes %July 08, 2025 1:05pmJuly 08, 2025 1:05pm4.0 %1.7-12.0Red Blood CountOctober 2024 1:05pm6.23 10 6/uLAbove high normal4.20-5.40Blood Urea NitrogenOct2024 1:05pmJuly 08, 2025 1:05pm12.0 mg/dL7.0-18.0Urine MucusOctober 2024 2:20pmOctober 2024 2:20pmTRACEAbnormal (applies to non-numeric results)NONE SEENUrine Leukocyte EsteraseOctober 2024 2:20pmTRACEAbnormal (applies to non-numeric results)NEGATIVETotal BilirubinOctober 2024 7:10am July 11, 2025 7:10am0.6 mg/dL0.2-1.0Immature Granulocyte % (Auto)July 11, 2025 7:10amOctober 2024 7:10am0.3 %0.0-0.5Segmented Neutrophils # (Manual)July 08, 2025 1:05pmOctober 2024 1:05pm22.07 10 3/uLAbove high normal1.4-6.5Red Cell Distribution WidthOctober 2024 1:05pm13.4 % 11.0-15.0Calcium LevelOctober 2024 1:05pmOctober 2024 1:05pm10.2 mg/dLAbove high normal8.5-10.1Urine RBCOctober 2024 2:20pmOctober 2024 2:48wv2-1 #/HPF0-2Urine NitriteOct2024 2:20pmNEGATIVENEGATIVE Total ProteinOctober 2024 7:10amOctober 2024 7:10am7.1 g/dL6.4-8.2 Lymphocytes # (Auto)July 11, 2025 7:10amOctober 2024 7:10am1.8 10 3/uL1.2-3.8Segmented NeutrophilsOctober 2024 1:05pmOctober 2024 1:05pm89.0Above high .0-75.0Corrected White Blood CountOctober 2024 1:05pm24.8 10 3/uLAbove high normal4.0-11.0Chloride LevelOctober 2024 1:05pmOctober 2024 1:64qg247 mmol/M50-389Mycxo Squamous Epithelial Cells July 08, 2025 2:20pmOctober 2024 2:20pmFEW #/LPFAbnormal (applies to non-numeric results)NONE/RAREUrine pHOctober 2024 2:20pm5.55.0-9.0 Lymphocytes (%) (Auto)July 11, 2025 7:10amOctober 2024 7:10am20.0 % Below low .5-60.0Carbon Dioxide LevelOctober 2024 1:05pmOctober 2024 1:05pm23.7 mmol/L21.0-32.0Urine WBCOct2024 2:20pmOctober 2024 2:70sl0-5 #/HPFAbnormal (applies to non-numeric results)NONE SEEN Urine ProteinOctober 2024 2:20pm>=300 mg/dLAbnormal (applies to non- numeric results)NEG/TRACEMean Corpuscular HemoglobinOctober 2024 7:10am July 11, 2025 7:10am28.0 pg26.7-34.0CreatinineOctober 2024 1:05pm July 08, 2025 1:05pm1.27 mg/dLAbove high normal0.55-1.02Urine Specific GravityOct2024 2:20pm>=1.030Abnormal (applies to non-numeric results) 1.005-1.025Mean Corpuscular Hemoglobin ConcentOctober 2024 7:10amOctober 2024 7:10am32.6 g/dL29.9-35.2Estimated GFR ()July 08, 2025 1:05pmOct2024 1:70fw63Qrssd low normal>=60 mL/min/1.73m 2Urine UrobilinogenOct2024 2:20pm1.0 EU/dL0.2-1.0Mean Corpuscular Volume July 11, 2025 7:10amOct2024 7:10am85.8 fL81.0-99.0Estimated GFR (Non- AmericanOctober 2024 1:05pmOctober 2024 1:56oi62Feitq low normal>=60 mL/min/1.73m 2Monocytes # (Auto)July 11, 2025 7:10amOctober 2024 7:10am0.6 10 3/uL0.3-0.8GlobulinOct2024 1:05pmOctober 2024 1:05pm3.8 g/dLMonocytes (%) (Auto)July 11, 2025 7:10amOctober 2024 7:10am7.0 %1.7-12.0Glucose LevelOct2024 1:05pmOctober 2024 1:33cy847 mg/dLAbove high -010Zjnp Platelet VolumeOct2024 7:10amOctober 2024 7:10am9.8 fL9.5-13.5Potassium LevelOct2024 1:05pmOctober 2024 1:05pm3.8 mmol/L3.5-5.1Neutrophils # (Auto) July 11, 2025 7:10amOctober 2024 7:10am5.9 10 3/uL1.4-6.5Sodium Level July 08, 2025 1:05pmOctober 2024 1:85zj886 mmol/J609-432Xajkyrfvtuq (%) (Auto)July 11, 2025 7:10amOctober 2024 7:10am64.8 %43.0-75.0Total BilirubinOct2024 1:05pmOctober 2024 1:05pm0.8 mg/dL0.2-1.0 Platelet CountOctober 2024 7:10amOctober 2024 7:84hl731 10 3/uL 150-450Total ProteinOct2024 1:05pmOctober 2024 1:05pm8.6 g/dL Above high normal6.4-8.2Red Blood CountOctober 2024 7:10amOctober 2024 7:10am5.15 10 6/uL4.20-5.40Red Cell Distribution WidthOctober 2024 7:10amOctober 2024 7:10am13.5 %11.0-15.0Corrected White Blood CountOctober 2024 7:10amOctober 2024 7:10am9.0 10 3/uL4.0-11.0 Microbiology Results Procedure Source Result Collection Date/Time Result Date/Time Result Comment Performing Site Urine Culture Urine 2 Days July 08, 2025 3:20pm July 11, 2025 9:23am [facility] [id number] [address] [place] [id number] Vital Signs Vital Reading Result Reference Range Collection Date/Time Height 65 [in_i] July 09, 2025 1:65gaCtsgwk885.19 [facility] 2024 1:54pmHeart Rate84 /szb27-173Hwkbuai 2024 1:54pmBP Alddjggc409 mm[Hg]100-140[facility] 2024 1:54pmBP Mwtnmvltm48 mm[Hg]60-100Oct[facility] 2024 1:54pmBMI (Body Mass Index)49.9 kg/c7Vypgown 2024 1:87cmXgfrii88 [in_i]August 28, 2025 8:62llBlhsvt748.24 kgDecebanner 2024 8:34amHeart Rate71 /fka41-304Ndvnhovh 2024 8:34amRespiratory rate12 /qsm97-89Nzevmcvk 2024 8:34amBP Lusdawzz827 mm[Hg]100-140Decebanner 2024 8:34amBP Fzoffzayu24 mm[Hg]60-100 August 28, 2025 8:34amBMI (Body Mass Index)49.9 kg/h9Bmjfrgfr 2024 8:34am Advance Directives Advance Directive Response Recorded Date/ Time Advance Directives No June 28, 2017 1:45pm Insurance Providers Guarantor Radha Guzman Address [address] [facility] [address]Ekithjw Info.Home Phone: Coverage Status Update:2025 Payer Group Member ID Coverage Type Subscriber Relationship to Subscriber Effective Date Expiration Date Conrado RUDOLPH Id: [id number] Moyer , M Id: [id number] [address] [facility] [facility] [address] [facility] [address] Home Phone: Email: [email or web address] [id number] Moyer , M Id: [id number] [address] [facility] [address] Home Phone: Email: [email or web address] Advantage Id: [id number] Moyer , M Id: [id number] [address] [place] [id number] Home Phone: Email: [email or web address] Encounter Location(s) Arrival/Admit Date Discharge/Departure Date Discharge/Departure Disposition Provider(s) Non-patient / Non-visit -[facility] O ctober 2024 2:05pm BURAK Albert-CDeparted [facility] 3:20pmOctober 2024 3:21pmDischarged to home care or self care (routine discharge)BURAK Albert-JAYLEENeparted [facility] 3:31pm Discharged to home care or self care (routine discharge)Dorota Bruce- patient / Soq[facility]rxnhy[facility] 20[facility] 8:10amBenRAMON Eliseeparted Physician/Provider Office [facility] August 28, 2025 8:20amDecember 2024 9:09amDischarged to home care or self care (routine discharge)Kelechi Galvan , DO Recent Diagnosis Onset Date Admit Date Abdominal pain Unknown July 09 2:52pm Acute cystitis Unknown July 09 2:52pm Diarrhea Unknown July 09 2:52pm Metabolic dysfunction-associ ated steatotic liver disease (MASLD) Unknown July 09, 2025 2:52pm Nausea & vomiting Unknown July 09, 2025 2:52pm Neutrophilic leukocytosis Unknown Octobe r 2024 2:52pm Lumbar spondylosis Unknown August 8:20am Major depression Unknown August 28, 2025 8:20am Metabolic dysfunction-associ ated steatotic liver disease (MASLD) Unknown August 28, 2025 8:20am Obesity Unknown August 28, 2 025 8:20am REBA (obstructive sleep apnea) Unknown 2024 8:20am Primary hypertension Unknown August 282024 8:20am Prolactinoma Unknown August 28, 2 025 8:20am Screening mammogram for breast cancer Unknown August 28, 2025 8:20am Type 2 diabetes mellitus with hyperglycemia Unkn own August 28, 2025 8:20am Wellness examination Unknown August 282024 8:20am Assessments Diagnosis Onset Date Resolution Status Admit Date Abdominal pain acuteOctober 2024 2:52pmAcute cystitisacuteOctober 2024 2:52pm DiarrheaacuteOctober 2024 2:52pmMetabolic dysfunction-associated steatotic liver disease (MASLD)acuteOctober 2024 2:52pmNausea & vomitingacute July 09, 2025 2:52pmNeutrophilic leukocytosisacuteOctober 2024 2:52pm Lumbar spondylosisacuteDecember 2024 8:20amMajor depressionacuteDecember 2024 8:20amMetabolic dysfunction-associated steatotic liver disease (MASLD)acuteDecemb2024 8:20amObesityacuteDecember 2024 8:20amOSA (obstructive sleep apnea)acuteDecember 2024 8:20amPrimary hypertension acuteDecemb2024 8:20amProlactinomaacuteDecember 5 8:20am Screening mammogram for breast canceracuteAugust 28, 2025 8:20amType 2 diabetes mellitus with hyperglycemiaacuteAugust 28, 2025 8:20amWellness examinationacuteAugust 28, 2025 8:20am Plan of Treatment Author [facility]van [facility] 7:17amInstructed on high fiber diet RUQ US: fatty infiltration of the liver, adenomyomatosis of the GB - 07/08/25 CT abdomen: cirrhotic liver, right renal cyst - 07/08/2025 Check additional labs: Hepatitis pf, Ferritin, alpha 1 antitrypsin AB, BLANCHE, anti DS DNA Calculate FIB-4 Refer for Fibroscan and GI evaluation. I have instructed this patient to consume a [...] referral to physical therapy or pain management. This patient is aware of the benefits associated with treatment of REBA: With continued use, the patient reduces the risk for PA, CVA, HTN, cardiac dysrhythmias and sudden cardiac deaths. The patient is also aware of the association between REBA and morning headaches, daytime somnolence, fatigue and obesity, which also has been improved with continued use. The patient is compliant with treatment, wearing the equipment every night for greater than 4 hours. The patient is instructed to continue use of the CPAP for REAB treatment. Compliant I have instructed this patient on a low-fat, high-fiber diet.?? I have also instructed them to reduce calories, portions sizes, sweet drinks and snacks.?? I have also recommended they exercise for 30 minutes, 3-5 times weekly. They are aware of the comorbid conditions associated with excessive weight: Diabetes, HTN, Hyperlipidemia, CAD and arthritis. Holding on weight loss medication at this time. I have instructed this patient on the recommended lifestyle changes, which includes a low fat, high fiber diet along with a regular exercise routine. I have also reviewed the recommended age-appropriate preventive testing for this patient. I have also reviewed the recommended vaccines for their age and risk factors. Denies headaches, galactorrhea or visual field defects. Not taking any medication. Recheck Prolactin level f/u labeling specialist I have instructed this patient on monthly SBE and recommended yearly mammograms. Author Kelechi Galvan [facility] Hospital[facility]oredOctober 2024 8:53pmSecondary to acute cystitis and possible pyelonephritis. Push [...] Tests Test Name Ordered Date Scheduled Date Comprehensive Metabolic Panel August 28 8:55am XR chest 2V*August 28, 2025 8:55amAlpha 1 Anti-TrypsinOctober 2024 7:46pmHepatitis B Surface AntibodyOctober 2024 7:46pmSmooth Muscle AntibodyOctober 2024 7:46pm Future Visits Future appointment information is unavailable Future Procedures Procedure Name Ordered Date Scheduled Date Complete Blood Count Auto Diff August 28 8:55am Lipid PanelDecember 2024 8:55amThyroid Stimulating HormoneDecember 2024 8:55amHepatitis B Core AntibodyOctober 2024 7:46pmHepatitis B Surface AntigenOctober 2024 7:46pm Future Medications Future medication information is unavailable Patient Instructions Patient instructions are unavailable
--- OUTSIDE RECORDS SUMMARY | 2025-08-29 07:24 | XMS_ITS | Clinical Summary ---
Author Organization [facility] Address [address] [facility] [place] [address] Care Team Providers Care Earth Sciences Professor Name Role Phone Kelechi Galvan Primary Care Provider [phone] Allergies Active AllergyReactionsCriticalityNoted LesqQzgezrggXatgnimrezm72/11/2024 Other Reaction(s): Unknown Reaction NdhppgugmffMmylfqq45/14/2023 Medications MedicationSigDispense QuantityRefillsLast FilledStart DateEnd DateStatus atenolol [...] RecordedSex Assigned at BirthNot on file Legal HtoZusvbj83/15/2023 6:50 PM EDTGender IdentityNot on fileSexual OrientationNot on file Last Filed Vital Signs Vital SignReadingTime TakenCommentsBlood Lrsffmpj664/7408/07/2024 1:26 PM EST Kamfh722708/07/2024 1:26 PM ESTTemperature--Respiratory Rate--Oxygen Idxljizgom29% 08/07/2024 1:26 PM ESTInhaled Oxygen Concentration--Bqvzgd512 kg (273 lb) 08/07/2024 1:26 PM IZBZpudhp312.1 cm (5' 5 )08/07/2024 1:26 PM ESTBody Mass Index45.43110/07/2023 1:26 PM EST Plan of Treatment Not on file Insurance Care Teams Team MemberRelationshipSpecialtyStart DateEnd Date Kelechi Galvan DO PCP - GeneralInternal Medicine05/25/23
--- OUTSIDE RECORDS SUMMARY | 2025-08-29 07:24 | XMS_ITS | Patient Health Record ---
Author Organization [facility] [place] Address [address] [place] [address] Care Team Providers Care Investigator Fraud Name Role Phone Kelechi Galvan DO Primary [...] End Date [employer] [place] [employer] [address] [place] [address] [id number] Mukesh Gray - patient is the [id number] 2023 Medical (General) History Medical History History ICD Code diabetes hypertensionSurgical History Surgery Date(Month/Year) [address] Suggs RFA r2wpgtjkc ablationc-section
--- NOTE | 2025-08-29 07:41 | XR_ITS ---
[address] [address] Patient Name: ELISA SANTOS MRN: [id number] date: 1975 Sex: F Assigned Patient Location: LAB Current Patient Location: LAB Accession/Order Number: [id number] Exam Date: 08/29/2025 07:45 Report Date: 08/29/2025 09:51 At the request of: PALOMO TRAN DO Procedure: XR chest 2V PA AND LATERAL CHEST: CLINICAL HISTORY: Intermittent cough and fever. Former smoker. COMPARISON: 07/13/2021 There is no focal parenchymal consolidation, effusion or pneumothorax. The heart is within normal limits for size. The superior mediastinum appears slightly wider than the comparison. It is uncertain if this is vascular. There is no vascular congestion. The visualized bony thorax is intact. XR/XR chest 2V IMPRESSION: NO ACUTE PULMONARY FINDINGS. APPARENT SLIGHT WIDENING OF THE SUPERIOR MEDIASTINUM, UNDETERMINED SIGNIFICANCE. Impression dictated by: Jane Arenas M.D. 08/29/2025 9:51 AM Dictation Location: [facility] Electronically authenticated by: [id number] Y Date: 08/29/2025 09:51
[2025-08-29 07:49] LABS: Hematocrit 43.2 % (36.0-48.0); Hemoglobin 14.0 g/dL (12.0-16.0); Immature Granulocytes Abs Auto 0.06 10^3/uL (0.00-0.03); Immature Granulocytes Pct Auto 0.6 % (0.0-0.5); Lymphocytes Absolute Auto 1.7 10^3/uL (1.2-3.8); Mean Corpuscular HGB Conc 32.4 g/dL (29.9-35.2); Mean Corpuscular Hemoglobin 27.0 pg (26.7-34.0); Mean Corpuscular Volume 83.2 fL (81.0-99.0); Platelet Count 285 10^3/uL (150-450); Red Blood Count 5.19 10^6/uL (4.20-5.40); White Blood Count 9.7 10^3/uL (4.0-11.0)
[2025-08-29 08:06] LABS: Microalbum Creatinine Ratio Ur 25.2 mg/g (0.0-29.9)
[2025-08-29 09:53] LABS: Alanine Aminotransferase 15 U/L (14-59); Albumin Globulin Ratio 0.9; Albumin Level 3.6 g/dL (3.4-5.0); Alkaline Phosphatase 104 U/L (46-116); Anion Gap 9.3; Aspartate Amino Transferase 8 U/L (15-37); Blood Urea Nitrogen 8.0 mg/dL (7.0-18.0); Calcium 9.8 mg/dL (8.5-10.1); Carbon Dioxide 29.4 mmol/L (21.0-32.0); Chloride 102 mmol/L (98-107); Cholesterol 151 mg/dL (<=200); Estimated GFR (African America >60 (>=60 mL/min/1.73m^2); Estimated GFR (Non-African Ame >60 (>=60 mL/min/1.73m^2); Globulin 3.9 g/dL; Glucose 319 mg/dL (74-106); HDL Cholesterol 43 mg/dL (40-60); Potassium 3.7 mmol/L (3.5-5.1); Sodium 137 mmol/L (136-145); Thyroid Stimulating Hormone 3.558 uIU/mL (0.358-3.740); Total Protein 7.5 g/dL (6.4-8.2); Triglycerides 99 mg/dL (<=150); VLDL CHOLESTEROL 19.8 mg/dL
== END 2025-08-29 07:19 | disposition home or self-care (01) ==
LOC: LAB 07:21
PROVIDERS: PCP Internal Medicine; Visit Provider Internal Medicine
DX: Z00.00 Encounter for general adult medical examination without abnormal findings (principal); R50.9 Fever, unspecified; R05.9 Cough, unspecified; D35.2 Benign neoplasm of pituitary gland; R53.83 Other fatigue
CPT/HCPCS: 36415; 71046; 80053; 80061; 82043; 82570; 83036; 84146; 84443; 85025; 86140